=== PATIENT | female | born 2000 | race Native Hawaiian/Other Pacific Islander ===

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

== ENCOUNTER 2020-04-29 16:41 | Inpatient (IN) | payer OTHER ==
[~2020-04-29] VITALS: Ht 167.6 cm; Wt 81.8 kg
[2020-04-29] MEDS ORDERED: ZOLO25TA PO (17:04)
[2020-04-29 17:16] LABS: HEMATOCRIT 39.7 % (36.0-47.0); HEMOGLOBIN 13.4 g/dl (12.0-15.5); MEAN CORPUSCULAR HEMOGLOBIN 30.7 pg (27.0-33.0); MEAN CORPUSCULAR HGB CONC 33.8 g/dl (32.0-36.5); MEAN CORPUSCULAR VOLUME 91.1 fl (80.0-96.0); PLATELET COUNT, AUTOMATED 370 10^3/uL (150-450); RED BLOOD COUNT 4.36 10^6/uL (4.00-5.40); WHITE BLOOD COUNT 11.3 10^3/uL (4.0-10.0)
[2020-04-29 17:32] LABS: HCG, SERUM QUALITATIVE NEGATIVE (NEGATIVE)
[2020-04-29 17:33] LABS: AMPHETAMINES LEVEL URINE NEGATIVE (NEGATIVE); BARBITURATES URINE NEGATIVE (NEGATIVE); BENZODIAZEPINES URINE NEGATIVE (NEGATIVE); CANNABINOIDS URINE NEGATIVE (NEGATIVE); COCAINE METABOLITE URINE NEGATIVE (NEGATIVE); METHADONE URINE NEGATIVE (NEGATIVE); OPIATES URINE NEGATIVE (NEGATIVE); PHENCYCLIDINE URINE NEGATIVE (NEGATIVE)
[2020-04-29 17:45] LABS: ACETAMINOPHEN LEVEL < 2.0 UG/ML (10.0-30.0); ALBUMIN 4.1 GM/DL (3.2-5.2); ALT/SGPT 30 U/L (12-78); BILIRUBIN,DIRECT 0.2 MG/DL (0.0-0.2); BILIRUBIN,TOTAL 0.5 MG/DL (0.2-1.0); BLOOD UREA NITROGEN 12 MG/DL (7-18); CALCIUM LEVEL 8.9 MG/DL (8.5-10.1); CARBON DIOXIDE LEVEL 29 MEQ/L (21-32); CHLORIDE LEVEL 107 MEQ/L (98-107); CREATININE FOR GFR 0.62 MG/DL (0.55-1.30); ETHYL ALCOHOL (ETHANOL) < 0.003 % (0.000-0.010); GLUCOSE, FASTING 87 MG/DL (70-100); POTASSIUM SERUM 3.9 MEQ/L (3.5-5.1); SALICYLATE LEVEL < 1.7 MG/DL (5.0-30.0); SODIUM LEVEL 139 MEQ/L (136-145); TOTAL PROTEIN 7.9 GM/DL (6.4-8.2)
[2020-04-29] MEDS ORDERED: SERT50TA29 PO (18:28)
[2020-04-29] MEDS ORDERED: TRAZ-186 PO (18:28)
--- NOTE | 2020-04-29 20:36 | ECGEPIP ---
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
[2020-04-30] MEDS ORDERED: SERTRALINE HCL 25 MG TABLET PO ONE (09:00)
[2020-04-30] MEDS ORDERED: IBUPROFEN 400 MG TAB PO PRN (16:30)
[2020-04-30] MEDS ORDERED: LORazepam 1 MG TAB PO PRN (16:30)
[2020-04-30] MEDS ORDERED: MAALOX 30 ML SUSP *UDC PO PRN (16:30)
[2020-04-30] MEDS ORDERED: MOM 30ML SUSPENSION UDC PO PRN (16:30)
[2020-04-30 23:04] VITALS: BP 138/81
[2020-05-01] MEDS: traZODone 50 MG TAB PO PRN ×2 (00:43→20:12)
[2020-05-01 07:00] VITALS: BP 128/79
[2020-05-01] MEDS: SERTRALINE HCL 25 MG TABLET PO SCH (08:57)
--- NOTE | 2020-05-01 13:20 | MHHPEPDOC ---
General Date Of Admission: Apr 29, 2020 Legal Status: 9.39 Chief Complaint Patient reported that last she jumped into the [place] (waist deep), wanted to see how she was feeling or if she wanted to really . Boyfriend was there was walking nearby and he was able to pull her out. She reports that she was not really feeling suicidal but not sure how she was feeling. She stated that she feels better because now she lives with her boyfriend and has a new puppy. 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 This occurred on 04/24/20, states she was feeling a lot of emotions on that day. She told her counselor about it and they recommended that she be seen in the ED. This is the first psychiatric admission for this patient with no other history of prior suicidal ideation, gestures or attempts. Psychiatric Review of Systems Depression (2 or more weeks): depressed mood, suicidal thoughts (suicidal gesture on 04/24/20 ), other (Last week, felt like she wanted to "see if she wanted to ", by jumping into a [place] while walking with her boyfriend ) Michelle (4 or more days of): denies Psychosis: denies PTSD: denies Anxiety: situational anxiety, stressor related anxiety Past Psychiatric History Previous Psychiatric Diagnosis: This is first admission Previous Psychiatric Admissions: None Suicide Attempts: None prior Psychiatric Follow-up: [facility], started when she was deployed November 2019 Psychiatric medications: Zoloft 75mg and Trazodone 50 mg . Past Medical History Medical Problems Medical: Unremarkable Surgeries: Gall Bladder Medications: None, OTC pain medications Allergies: No known drug allergies, no food allergies, no environmental allergies Head Injury: No Seizures: No Hospitalizations: Yes Surgeries: Yes Family Medical/Psychiatric HX Medical Problems Patient adopted, has not history that she is aware of. Psychiatric Disorders: No Addiction: No Suicide Attemps/Completions: No Addiction History denies Social History Childhood: Went into Foster Care at 3, Adopted at age 6 and then adopted again at 13 years old. 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 Missed taking Zoloft on time several days in a row. Social Support: Supportive Boyfriend and Friends Legal: None Marital: Single Mental Status Examination General Appearance: well groomed Build: average Demeanor: average Eye Contact: average Activity: average Behavior: cooperative Speech: clear, reg/rate,rhythm,volume Mood: euthymic Affect: appropriate Thought Process: logical/linear Thought Content (Delusions): none reported Thought Content (Other): none reported Thought Content (Aggressive): none reported Perception (Hallucinations): none reported Perception (Other): none reported Cognition (Impairment of): none reported Cognition(Intelligence Est.): average Oriented: Awake, Oriented times three Insight: good Judgment: Good Psychosis: Denies Diagnoses Unspecified Depressive Disorder A-FIB/CHADSVASC A-FIB History Current/History of A-Fib/PAF?: No Current PO Anticoag Therapy: No Age/Risk Factor Scoring CHADSVASC: CHADSVASC Response (Comments) Value Age Risk Factor Age < 65 years old 0 Gender Risk Factor Female 1 Hx of CHF No 0 Hx of HTN No 0 Hx of Stroke/TIA/or VTE No 0 Hx of Diabetes No 0 Hx of Vascular Disease No 0 Total 1 Treatment Treatment ordered: NONE Assessment Patient reporting minimal depressive symptoms having a moment in which she was having a bad day on of last week. She does not currently have active suicidal thoughts, reporting no depression or anxiety. She was sent her for an evaluation by her counselor. She reports no suicidal ideation, planning or intent. She is not observed with any delusional, psychotic, manic, obsessional, or abnormal psychotic symptoms. There does not seem to be any acute issues at this time. Patient will be started on home medications and discharged tomorrow. Initial Treatment Plan 1. Patient was admitted on a [9.39] status. 2. Complete history was obtained. 3. With patients permission, family will be contacted and database will be e xpanded. 4. Patients medication regimen will be reviewed and changed accordingly. 5. Patient will be provided with protected environment. 6. Patient will be treated with individual, group, and milieu therapies. 7. Patient will receive supportive psych-education. 8. Discharge planning will commence immediately. 9. Outpatient follow-up treatment will be strongly recommended. 10. The initial treatment plan will focus initially on: * Depression. * Risk for suicide. ESTIMATED LENGTH OF STAY: 1-3 DAYS. TIME SPENT COUNSELING AND COORDINATING INITIAL CARE: 30 minutes. Vital Signs Vital Signs Date Time Temp Pulse Resp B/P (MAP) Pulse Ox O2 Delivery O2 Flow Rate FiO2 05/01/20 07:00 97.2 82 16 128/79 (95) 99 Room Air Medications Scheduled Sertraline HCl (Sertraline HCl) 50 Mg Tablet, 50 MG PO DAILY, (Reported) 75MG TOTAL DAILY Sertraline Hcl (Zoloft) 25 Mg Tablet, 25 MG PO DAILY, (Reported) 75MG TOTAL DAILY Scheduled PRN Trazodone HCl (Trazodone HCl) 50 Mg Tablet, 50 MG PO QHS PRN for SLEEP, (Reported) MAY TAKE ONE TO TWO TABS PRN Allergies Coded Allergies: No Known Allergies (Unverified , 04/29/20) LANCE ESPINOZA NP May 01, 2020 13:20
--- NOTE | 2020-05-01 15:48 | HPEPDOC ---
General Date of Admission Apr 30, 2020 at 16:17 Date of Service: May 01, 2020 Chief Complaint The patient is a 20-year-old female admitted with a reason for visit of Unspecified Depressive Disorder. Source: Patient Exam Limitations: No limitations Severity: Mild, Moderate History of Present Illness Patient is 20 years old female with past medical history of anxiety, who had a suicidal gesture of jumping [place] the [place] to see if she would get scared. This o ccurred on 04/24/20, states she was feeling a lot of emotions on that day. She told her counselor about it and they recommended that she be seen in the ED. During my interview patient denied fever, chills, nausea, vomiting, diarrhea or dysuria Home Medications Scheduled Sertraline HCl (Sertraline HCl) 50 Mg Tablet, 50 MG PO DAILY, (Reported) 75MG TOTAL DAILY Sertraline Hcl (Zoloft) 25 Mg Tablet, 25 MG PO DAILY, (Reported) 75MG TOTAL DAILY Scheduled PRN Trazodone HCl (Trazodone HCl) 50 Mg Tablet, 50 MG PO QHS PRN for SLEEP, (Reported) MAY TAKE ONE TO TWO TABS PRN Allergies Coded Allergies: No Known Allergies (Unverified , 04/29/20) Past Medical History Medical History Anxiety Surgical History Cholecystectomy Social History * Smoker: Denies Alcohol: Denies Drugs: denies A-FIB/CHADSVASC A-FIB History Current/History of A-Fib/PAF?: No Current PO Anticoag Therapy: No Review of Systems Constitutional: Denies: Chills, Fever ENT: Denies: Head Aches Skin: Denies: Rash, Lesions Pulmonary: Denies: Dyspnea Cardiovascular: Denies: Chest Pain Gastrointestinal: Denies: Nausea Genitourinary: Denies: Dysuria Hematologic: Denies: Bruising Endocrine: Denies: Polydipsia Musculoskeletal: Denies: Neck Pain, Back Pain Neurological: Denies: Weakness Psych: Reports: Anxiety Physical Examination General Exam: Positive: Alert, Cooperative Eye Exam: Positive: PERRLA ENT Exam: Positive: Atraumatic Neck Exam: Positive: Supple; Negative: JVD Chest Exam: Positive: Clear to auscultation Heart Exam: Positive: Rate Normal Telemetry: Positive: No significant arrhythmia Abdomen Exam: Positive: Normal bowel sounds Extremity Exam: Negative: Clubbing Skin Exam: Positive: Nl turgor and temperature Neuro Exam: Positive: Strength at 5/5 X4 ext, Cranial Nerves 3-12 NL Psych Exam: Positive: Anxiety Vital Signs Vital Signs Date Time Temp Pulse Resp B/P (MAP) Pulse Ox O2 Delivery O2 Flow Rate FiO2 05/01/20 07:00 97.2 82 16 128/79 (95) 99 Room Air Assessment/Plan Patient is 20 years old female with past medical history of anxiety, who had a s uicidal gesture of jumping to the [place] to see if she would get scared. This occurred on 04/24/20, states she was feeling a lot of emotions on that day. She told her counselor about it and they recommended that she be seen in the ED. During my interview patient denied fever, chills, nausea, vomiting, diarrhea or dysuria Problems (1) Suicidal ideation Status: Acute Problem Text: Defer treatment to psych team Plan / VTE VTE Prophylaxis Ordered?: No VTE Exclusion Mechanical Proph: Low Risk for VTE ISREAL ESPINAL DO May 01, 2020 15:48
[2020-05-01 18:20] VITALS: BP 134/74
[2020-05-02 06:59] VITALS: BP 113/62
[2020-05-02] MEDS: SERTRALINE HCL 25 MG TABLET PO SCH (08:48)
[2020-05-02] MEDS ORDERED: SERT25TA21 PO (11:03)
[2020-05-02] MEDS ORDERED: TRAZ-252 PO (11:03)
--- NOTE | 2020-05-02 15:26 | MHDSPDOC ---
[facility] Discharge Summary Discharge Summary DATE OF ADMISSION: Apr 30, 2020 at 16:17 DATE OF DISCHARGE: May 02, 2020 at 11:25 DISCHARGE DIAGNOSES: 1. Unspecified Depressive Disorder REASON FOR ADMISSION: Patient reported that last she jumped into the [place] (waist deep), wanted to see how she was feeling or if she wanted to really . Boyfriend was there was walking nearby and he was able to pull her out. She reports that she was not really feeling suicidal but not sure how she was feeling. She stated that she feels better because now she lives with her boyfriend and has a new puppy. 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 This occurred on 04/24/20, states she was feeling a lot of emotions on that day. She told her counselor about it and they recommended that she be seen in the ED. This is the first psychiatric admission for this patient with no other history of prior suicidal ideation, ge stures or attempts. On initial psychiatric evaluation, patient denied continued suicidal ideation. She was admitted for observation as the suicidal gesture had occurred 1 week ago, patient had reported that she was no longer having self- harm thoughts. In morning report, staff had reported that patient was doing well. Observed with no reports of depression, suicidal thoughts, not observed with abnormal psychotic symptoms. CONSULTANTS INVOLVED: See Medical H + P by medical MD TREATMENT AND PROGRESS ON THE UNIT : Procedures and Treatment: Patient was afforded: 1) Individual and group therapy, 2) Psychopharmacological management, 3) Family therapy conducted by discharge planning department with patient and family for the purpose of education and discharge planning. HOSPITAL COURSE: Patient was restarted on her home medications and was observed for any increased depression, anxiety or suicidal ideation. DISCHARGE ASSESSMENT: At time of discharge the patient is alert and fully oriented, Mood euthymic. Affect broad range. Patient denies suicidal/homicidal ideation, planning or intent. IQ is at baseline. Memory is intact and insight and judgement is good. She is welcome to return home to the [facility] until her commanding officer can determine whether or not she can stay with her boyfriend who is, according to the patient is legally from his . 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 Speech is clear, fluid and conversant, normal rate tone and volume Language skills are good Thought processes including: d linear and goal oriented Thought content: denies depression and suicidality, Abstract reasoning, and computation: good Description of associations: none Description of abnormal or psychotic thoughts: none Judgment: good Insight: good Orientation to alert and oriented Recent and remote memory: intact Attention span and concentration: good Language: intact Fund of knowledge: above average Mood: euthymic Affect: congruent with mood MEDICATIONS ON DISCHARGE: See medication reconciliation PLAN/FOLLOWUP ARRANGEMENTS: The patient is being discharged as he/she no longer poses a risk of harm towards himself or others. The patient will continue on her medications. Rxs were electronically sent for Zoloft 75 mg oral daily and Trazodone 50 mg at bedtime. A week supply with 6 refills were sent to [facility]. I reviewed with patient the medications, indications, side effects, dose, time, route and frequency. She verbalized understanding. Following up with [facility]. The amount of time spent in the coordination of care for this patient was approximately 15 minutes. Vital Signs/I&Os Vital Signs Date Time Temp Pulse Resp B/P (MAP) Pulse Ox O2 Delivery O2 Flow Rate FiO2 05/02/20 06:59 98.2 83 16 113/62 (79) 100 Room Air Medications Scheduled Sertraline HCl (Sertraline HCl) 50 Mg Tablet, 50 MG PO DAILY, (Reported) 75MG TOTAL DAILY Sertraline HCl (Sertraline HCl) 25 Mg Tablet, 75 MG PO DAILY for depression, #21 Sertraline Hcl (Zoloft) 25 Mg Tablet, 25 MG PO DAILY, (Reported) 75MG TOTAL DAILY Scheduled PRN Trazodone HCl (Trazodone HCl) 50 Mg Tablet, 50 MG PO QHS PRN for SLEEP, (Reported) MAY TAKE ONE TO TWO TABS PRN Trazodone HCl (Trazodone HCl) 50 Mg Tablet, 50 MG PO QHSP PRN for INSOMNIA, #7 Allergies Coded Allergies: No Known Allergies (Unverified , 04/29/20) LANCE ESPINOZA NP 18, 2020 15:26
== END 2020-05-02 11:25 | disposition home or self-care (01) | DRG 881 ==
LOC: M ED 16:41 → M ED INP 04-30 16:17 → M PSY 04-30 22:59
PROVIDERS: ADMIT Psychiatry & Neurology Psychiatry; ATTEND Psychiatry & Neurology Psychiatry
DX: F32.9 Major depressive disorder, single episode, unspecified (principal); Z91.82 Personal history of military deployment; Z79.899 Other long term (current) drug therapy

== ENCOUNTER 2020-06-26 11:56 | Emergency (ER) | payer OTHER ==
[~2020-06-26] VITALS: Ht 167.6 cm; Wt 97.3 kg
[~2020-06-26 11:56] MED LIST changes: +SERT25TA21 PO; +SERT50TA29 PO; +TRAZ-186 PO; +TRAZ-252 PO; +ZOLO25TA PO
[2020-06-26] MEDS ORDERED: ABIL1TAB13 PO (12:10)
[2020-06-26] MEDS ORDERED: SERT-138 PO (12:10)
[2020-06-26 12:38] LABS: BASO % 0.3 % (0.0-1.0); EOS # 0.1 10^3/uL (0.0-0.5); EOS % 0.7 % (0.0-3.0); HEMATOCRIT 42.4 % (36.0-47.0); HEMOGLOBIN 14.1 g/dl (12.0-15.5); LYMPH # 2.2 10^3/uL (1.5-5.0); LYMPH % 22.7 % (24.0-44.0); MEAN CORPUSCULAR HEMOGLOBIN 29.6 pg (27.0-33.0); MEAN CORPUSCULAR HGB CONC 33.3 g/dl (32.0-36.5); MEAN CORPUSCULAR VOLUME 89.1 fl (80.0-96.0); MONO # 0.6 10^3/uL (0.0-0.8); MONO % 6.4 % (0.0-5.0); NEUTROPHILS # 6.8 10^3/uL (1.5-8.5); NEUTROPHILS % 69.4 % (36.0-66.0); PLATELET COUNT, AUTOMATED 414 10^3/uL (150-450); RED BLOOD COUNT 4.76 10^6/uL (4.00-5.40); WHITE BLOOD COUNT 9.8 10^3/uL (4.0-10.0)
[2020-06-26 13:07] LABS: ALBUMIN 4.3 GM/DL (3.2-5.2); BILIRUBIN,DIRECT 0.2 MG/DL (0.0-0.2); BILIRUBIN,TOTAL 0.8 MG/DL (0.2-1.0); TOTAL PROTEIN 7.9 GM/DL (6.4-8.2)
[2020-06-26] MEDS ORDERED: DICY10CA13 PO (15:04)
[2020-06-26 15:15] VITALS: BP 118/64
[2020-06-26 19:05] LABS: CHLAMYDIA DNA AMPLIFICATION NEGATIVE (NEGATIVE); GC DNA AMPLIFICATION NEGATIVE (NEGATIVE)
== END 2020-06-26 15:17 | disposition home or self-care (01) ==
LOC: M ED 11:56
DX: R10.2 Pelvic and perineal pain (principal); R19.7 Diarrhea, unspecified; N89.8 Other specified noninflammatory disorders of vagina; Z90.49 Acquired absence of other specified parts of digestive tract; F41.9 Anxiety disorder, unspecified; F32.5 Major depressive disorder, single episode, in full remission

== ENCOUNTER 2020-09-11 02:21 | Inpatient (IN) | payer OTHER ==
[~2020-09-11] VITALS: Ht 167.6 cm; Wt 101.7 kg
[~2020-09-11 02:21] MED LIST changes: +ABIL1TAB13 PO; +DICY10CA13 PO; +SERT-138 PO
--- OUTSIDE RECORDS SUMMARY | 2020-09-11 02:26 | CCD | Continuity of Care Document ---
Author Author [facility] Organization Unknown Address [address] [place] [id number] Phone [phone] Care Team Providers Care Manager Wellness Name Role Phone Usa ArturdacLisy laquita AUTM Unavailable Problems Description No Information Available Social History Type Date Description Comments Sex Unknown Tobacco Use Start: Unknown Never Smoked Cigarettes Tobacco Use Start: Unknown Never Smoked Cigars Tobacco Use Start: Unknown Never Smoked A Pipe Tobacco Use Start: Unknown Never Used Smokeless Tobacco ETOH Use Denies alcohol use Tobacco Use Start: Unknown Patient has never smoked Recreational Drug Use Denies Drug Use Allergies, Adverse Reactions, Alerts Active Allergies Reaction Severity Comments Date NKDA 08/27/2020 NKEA 08/27/2020 NKFA 08/27/2020 Medications Description No Active Medications Immunizations Description No Information Available Vital Signs Date Vital Result Comment 08/27/2020 2:21pm BP Systolic 134 mmHg BP Diastolic 85 mmHg Heart Rate 96 /min Body Temperature 98.0 F Respiratory Rate 16 /min O2 % BldC Oximetry 98 % Weight 210.00 lb Weight 95.256 kg Height 66 inches 5'6" BMI (Body Mass Index) 33.9 kg/m2 BSA (Body Surface Area) 2.04 m2 Results Test Acquired Date Facility Test Result H/L Range Note Inhouse Ua 08/27/2020 In Office Ua Color YELLOW Ua Appearance CLEAR Spec [place] 1.020 Ua PH Test Strip 5 Leukocytes - Ua Nitrate - Ua Protein NEG Inhouse Glucose NEG Ua Ketones - Urobilinogen NEG Ua Bilirubin - Blood 250 Procedures Description No Information Available Medical Devices Description No Information Available Encounters Type Date Location Provider Dx Diagnosis Office Visit 08/27/2020 2:00p [facility] Nayan Page M.D. R82.81 Pyuria R30.0 Dysuria R10.31 Right lower quadrant pain N10 Acute pyelonephritis R35.0 Frequency of micturition R31.21 Asymptomatic microscopic hem aturia N94.10 Unspecified dyspareunia Assessments Date Code Description Provider 08/27/2020 R82.81 Pyuria Doc Aguero 08/27/2020 R30.0 Dysuria Doc Aguero 08/27/2020 R10.31 Right lower quadrant pain Nayan Page M.D. 08/27/2020 N10 Acute pyelonephritis Nayan caicedo M.D. 08/27/2020 R35.0 Frequency of micturition Nayan Page M.D. 08/27/2020 R31.21 Asymptomatic microscopic hematur ia Nayan Page M.D. 08/27/2020 N94.10 Unspecified dyspareunia Nayan Page M.D. Plan of Treatment Future Appointment(s):* 10/08/2020 1:00 pm - Urology Resource Schedule at [facility] 08/27/2020 - Nayan Page M.D.* R82.81 Pyuria* Comments:* Patient presents to the clinic today for evaluation and management of acute pyelonephritis. Physical examination done in the office today was unremarkable from a standpoint.Anatomy and functions of female genitourinary system were reviewed with the patient. Urine culture and sensitivity on 06/20/20 revealed mixed ur ogenital licha of 25,000-50,000 CFU/mL. Result was reviewed with the patient. CT of the abdomen and pelvis done on 06/17/20 revealed normal appearing kidneys, partially decompressed bladder, and cholecystectomy noted. Result was reviewed with the patient. Urinalysis completed in the office was positive for leukocyte esterase, nitrite, and blood, which was reviewed with the patient. Her symptoms are most likely due to urinary tract infection. Result was reviewed with the patient.We will send her urine sample for culture to look for growth of organisms. We will start treatment according to the urine culture and sensitivity result.We will also repeat her urinalysis for further review.Right lower quadrant pain may be musculoskeletal origin. Patient was instructed to consult Physical Therapy for musculoskeletal pain.Various treatment modalities and workup methods including antibiotic use and urine culture and sensitivity, repeat urinalysis were discussed with the patient at length.Patient was advised to call or RTC if she develops any new concerns or complaints.Patient verbalized understanding and agreed to the care plan. All of her questions were answered. Follow up to be decided after the urine culture and sensitivity is done.She will follow up in 6 weeks for reassessment of her symptoms and further plan of care. If there is persistence of lower back pains, blood on urinalysis or persistent pyuria, will consider a cystoscopy for lower tract evaluation. * R30.0 Dysuria* Comments:* As above. * R10.31 Right lower quadrant pain* Comments:* Her right lower back pain most likely to be of musculoskeletal origin. Recommended to consult with Physical Therapy. * N10 Acute pyelonephritis* Comments:* As above. * R35.0 Frequency of micturition* Comments:* As above. * R31.21 Asymptomatic microscopic hematuria* Comments:* UA showed blood. * N94.10 Unspecified dyspareunia* Comments:* Symptoms are mild and intermittent. No new treatment was indicated at this time. Functional Status Description No Information Available Mental Status Description No Information Available Referrals Description No Information Available
--- OUTSIDE RECORDS SUMMARY | 2020-09-11 02:26 | CCD | Continuity of Care Document ---
Author Author [facility] Organization Unknown Address [address] [place] [id number] Phone [phone] Care Team Providers Care Ground Nuclear Weapons Assembly Officer Name Role Phone Usa ArturdacLisy laquita AUTM [...] Ua Color YELLOW Ua Appearance CLEAR Spec [place] 1.020 Ua PH Test Strip 5 Leukocytes - Ua Nitrate - Ua Protein NEG Inhouse Glucose NEG Ua Ketones - Urobilinogen NEG Ua Bilirubin - Blood - Procedures Description No Information Available Medical Devices Description No Information Available Encounters Type Date Location Provider Dx Diagnosis Office Visit 08/27/2020 2:00p [facility] Nayan Page M.D. R82.81 Pyuria [...] 1:00 pm - Urology Resource Schedule at [facility] 08/27/2020 - Nayan Page M.D.* [...]
--- OUTSIDE RECORDS SUMMARY | 2020-09-11 02:26 | CCD | Continuity of Care Document ---
Author Author Jade RAMIREZ M.D. Organization Unknown Address [facility] [address] [place] [address] Phone [phone] Care Team Providers Care Frame Stylist Name Role Phone [facility] Lisy [facility] AUT Unavailable Problems Description No Information Available Social [...] BSA (Body Surface Area) 2.04 m2 Results Description No Information Available Procedures Description No Information Available Medical Devices Description No Information Available Encounters Type Date Location Provider Dx Diagnosis Office Visit 08/27/2020 2:00p [facility] Nayan Ramirez M.D. R82.81 Pyuria R30.0 Dysuria R10.31 Right lower quadrant pain N10 Acute pyelonephritis R31.21 Asymptomatic microscopic hem aturia R35.0 Frequency of micturition N94.10 Unspecified dyspareunia Assessments Date Code Description Provider 08/27/2020 R82.81 Pyuria Doc Aguero 08/27/2020 R30.0 Dysuria Doc Aguero 08/27/2020 R10.31 Right lower quadrant pain Nayan Ramirez M.D. 08/27/2020 N10 Acute pyelonephritis Nayan caicedo M.D. 08/27/2020 R31.21 Asymptomatic microscopic hematur ia Nayan Ramirez M.D. 08/27/2020 R35.0 Frequency of micturition Nayan Ramirez M.D. 08/27/2020 N94.10 Unspecified dyspareunia Nayan Ramirez M.D. Plan of Treatment Future Appointment(s):* 10/08/2020 1:00 pm - Urology Resource Schedule at [facility] 08/27/2020 - Nayan Ramirez M.D.* R82.81 Pyuria * R30.0 Dysuria * R10.31 Right lower quadrant pain* Comments:* Her right lower quadrant pain may be musculoskeletal origin. * N10 Acute pyelonephritis * R31.21 Asymptomatic microscopic hematuria* Comments:* UA showed blood. * R35.0 Frequency of micturition * N94.10 Unspecified dyspareunia* Comments:* Symptoms are mild and intermittent. Functional Status Description No Information Available Mental Status Description No Information Available Referrals Description No Information Available
--- OUTSIDE RECORDS SUMMARY | 2020-09-11 02:27 | CCD ---
Author Author [facility] Organization [facility] Address Unknown Phone Unavailable Care Team Providers Care Shipping & Receiving Lead Name Role Phone Hood RAMIREZ MD Unavailable Unavailable Hood RAMIREZ MD Unavailable Unavailable Hood RAMIREZ MD Unavailable Unavailable Hood RAMIREZ MD Unavailable Unavailable Hood RAMIREZ MD Unavailable Unavailable Hood RAMIREZ MD Unavailable Unavailable Hood RAMIREZ MD Unavailable Unavailable Hood RAMIREZ MD Unavailable Unavailable Hood RAMIREZ MD Unavailable Unavailable Hood RAMIREZ MD Unavailable Unavailable Hood RAMIREZ MD Unavailable Unavailable Hood RAMIREZ MD Unavailable Unavailable Hood RAMIREZ MD Unavailable Unavailable Hood RAMIREZ MD Unavailable Unavailable Hood RAMIREZ MD Unavailable Unavailable Hood RAMIREZ MD Unavailable Unavailable Hood RAMIREZ MD Unavailable Unavailable Hood RAMIREZ MD Unavailable Unavailable Hood RAMIREZ MD Unavailable Unavailable Hood RAMIREZ MD Unavailable Unavailable Hood RAMIREZ MD Unavailable Unavailable Hood RAMIREZ MD Unavailable Unavailable Hood RAMIREZ MD Unavailable Unavailable Hood RAMIREZ MD Unavailable Unavailable Hood RAMIREZ MD Unavailable Unavailable Hood RAMIREZ MD Unavailable Unavailable Hood RAMIREZ MD Unavailable Unavailable OBHood COON MD Unavailable Unavailable Hood RAMIREZ MD Unavailable Unavailable OBHood COON MD Unavailable Unavailable Hood RAMIREZ MD Unavailable Unavailable OBHood COON MD Unavailable Unavailable OBEN, T BAR MD Unavailable Unavailable OBEN, T BAR MD Unavailable Unavailable OBEN, T BAR MD Unavailable Unavailable OBEN, T BAR MD Unavailable Unavailable OBEN, T BAR MD Unavailable Unavailable OBEN, T BAR MD Unavailable Unavailable OBEN, T BAR MD Unavailable Unavailable OBEN, T BAR MD Unavailable Unavailable OBEN, T BAR MD Unavailable Unavailable OBEN, T BAR MD Unavailable Unavailable OBEN, T BAR MD Unavailable Unavailable OBEN, T BAR MD Unavailable Unavailable OBEN, T BAR MD Unavailable Unavailable OBEN, T BAR MD Unavailable Unavailable OBEN, T BAR MD Unavailable Unavailable OBEN, T BAR MD Unavailable Unavailable OBEN, T BAR MD Unavailable Unavailable OBEN, T BAR MD Unavailable Unavailable OBEN, T BAR MD Unavailable Unavailable OBEN, T BAR MD Unavailable Unavailable OBEN, T BAR MD Unavailable Unavailable TURRIN, BENEDICT Unavailable Unavailable TURRIN, BENEDICT Unavailable Unavailable TURRIN, BENEDICT Unavailable Unavailable TURRIN, BENEDICT Unavailable Unavailable OBEN, T BAR MD Unavailable Unavailable OBEN, T BAR MD Unavailable Unavailable OBEN, T BAR MD Unavailable Unavailable OBEN, T BAR MD Unavailable Unavailable OBEN, T BAR MD Unavailable Unavailable OBEN, T BAR MD Unavailable Unavailable OBEN, T BAR MD Unavailable Unavailable OBEN, T BAR MD Unavailable Unavailable OBEN, T BAR MD Unavailable Unavailable OBEN, T BAR MD Unavailable Unavailable OBEN, T BAR MD Unavailable Unavailable OBEN, T BAR MD Unavailable Unavailable OBEN, T BAR MD Unavailable Unavailable OBEN, T BAR MD Unavailable Unavailable OBEN, T BAR MD Unavailable Unavailable OBEN, T BAR MD Unavailable Unavailable OBEN, T BAR MD Unavailable Unavailable OBEN, T BAR MD Unavailable Unavailable OBEN, T BAR MD Unavailable Unavailable OBEN, T BAR MD Unavailable Unavailable OBEN, T BAR MD Unavailable Unavailable OBEN, T BAR MD Unavailable Unavailable OBEN, T BAR MD Unavailable Unavailable OBEN, T BAR MD Unavailable Unavailable OBEN, T BAR MD Unavailable Unavailable OBEN, T BAR MD Unavailable Unavailable OBEN, T BAR MD Unavailable Unavailable OBEN, T BAR MD Unavailable Unavailable OBEN, T BAR MD Unavailable Unavailable OBEN, T BAR MD Unavailable Unavailable OBEN, T BAR MD Unavailable Unavailable OBEN, T BAR MD Unavailable Unavailable OBEN, T BAR MD Unavailable Unavailable OBJAYMIE T BAR DUNBAR Unavailable Unavailable OBJAYMIE, T BAR Unavailable Unavailable OBJAYMIE T BAR Unavailable Unavailable OBEN, T BAR Unavailable Unavailable OBEN T BAR Unavailable Unavailable OBEN, T BAR MD Unavailable Unavailable OBEN, T BAR MD Unavailable Unavailable OBEN, T BAR MD Unavailable Unavailable OBEN, T BAR MD Unavailable Unavailable OBJAYMIE, T BAR Unavailable Unavailable OBEN, T BAR MD Unavailable Unavailable OBJAYMIE, T BAR MD Unavailable Unavailable OBEN, T BAR MD Unavailable Unavailable OBEN, T BAR MD Unavailable Unavailable OBJAYMIE, T BAR MD Unavailable Unavailable OBEN, T BAR MD Unavailable Unavailable OBJAYMIE T BRA Unavailable Unavailable OBJAYMIE, T BAR MD Unavailable Unavailable OBJAYMIE T BAR Unavailable Unavailable OBJAYMIE T BAR Unavailable Unavailable UNKNOWN, CLINIC EV Unavailable Unavailable Tiffany SALDANA MD Unavailable Unavailable Tiffany SALDANA MD Unavailable Unavailable Tiffany SALDANA MD Unavailable Unavailable Tiffany SALDANA MD Unavailable Unavailable Tiffany SALDANA MD Unavailable Unavailable Tiffany SALDANA MD Unavailable Unavailable Tiffany SALDANA MD Unavailable Unavailable Tiffany SALDANA MD Unavailable Unavailable Tiffany SALDANA MD Unavailable Unavailable Tiffany SALDANA MD Unavailable Unavailable Tiffany SALDANA MD Unavailable Unavailable Tiffany SALDANA MD Unavailable Unavailable Tiffany SALDANA MD Unavailable Unavailable Tiffany SALDANA MD Unavailable Unavailable Tiffany SALDANA MD Unavailable Unavailable Tiffany SALDANA MD Unavailable Unavailable Tiffany SALDANA MD Unavailable Unavailable Tiffany SALDANA MD Unavailable Unavailable Tiffany SALDANA MD Unavailable Unavailable Tiffany SALDANA MD Unavailable Unavailable Tiffany SALDANA MD Unavailable Unavailable Tiffany SALDANA MD Unavailable Unavailable Tiffany SALDANA MD Unavailable Unavailable Carmella POOLE MD Unavailable Unavailable Carmella POOLE MD Unavailable Unavailable Carmella POOLE MD Unavailable Unavailable Carmella POOLE MD Unavailable Unavailable Carmella POOLE MD Unavailable Unavailable Carmella POOLE MD Unavailable Unavailable Carmella POOLE MD Unavailable Unavailable Carmella POOLE MD Unavailable Unavailable Carmella POOLE MD Unavailable Unavailable LUISANA, F TORREY DO Unavailable Unavailable LUISANA, F TORREY DO Unavailable Unavailable LUISANA, F TORREY DO Unavailable Unavailable LUISANA, F TORREY DO Unavailable Unavailable LUISANA, F TORREY DO Unavailable Unavailable LUISANA, F TORREY DO Unavailable Unavailable LUISANA, F TORREY DO Unavailable Unavailable LUISANA, F TORREY DO Unavailable Unavailable LUISANA, F TORREY DO Unavailable Unavailable LUISANA, F TORREY DO Unavailable Unavailable LUISANA, F TORREY DO Unavailable Unavailable LUISANA, F TORREY DO Unavailable Unavailable LUISANA, F TORREY DO Unavailable Unavailable LUISANA, F TORREY DO Unavailable Unavailable LUISANA, F TORREY DO Unavailable Unavailable LUISANA, F TORREY DO Unavailable Unavailable LUISANA, F TORRYE DO Unavailable Unavailable LUISNAA, F TORREY DO Unavailable Unavailable LUISANA, F TORREY DO Unavailable Unavailable LUISANA, F TORREY DO Unavailable Unavailable LUISANA, F TORREY DO Unavailable Unavailable LUISANA, F TORREY DO Unavailable Unavailable LUISANA, F TORREY DO Unavailable Unavailable LUISANA, F TORREY DO Unavailable Unavailable LUISANA, F TORREY DO Unavailable Unavailable LUISANA, F TORREY DO Unavailable Unavailable LUISANA, F TORREY DO Unavailable Unavailable LUISANA, F TORREY DO Unavailable Unavailable LUISANA, F TORREY DO Unavailable Unavailable LUISANA, F TORREY DO Unavailable Unavailable LUISANA, F TORREY DO Unavailable Unavailable LUISANA, F TORREY DO Unavailable Unavailable Re-disclosure Warning The records that you are about to access may contain information from federally-assisted alcohol or drug abuse programs. If such information is present, then the following federally mandated warning applies: This information has been disclosed to you from records protected by federal confidentiality rules (42 CFR part 2). The federal rules prohibit you from making any further disclosure of this information unless further disclosure is expressly permitted by the written consent of the person to whom it pertains or as otherwise permitted by 42 CFR part 2. A general authorization for the release of medical or other information is NOT sufficient for this purpose. The Federal rules restrict any use of the information to criminally investigate or prosecute any alcohol or drug abuse patient.The records that you are about to access may contain highly sensitive health information, the redisclosure of which is protected by Article 27-F of the [facility] Public Health law. If you continue you may have access to information: Regarding HIV / AIDS; Provided by facilities licensed or operated by the [facility] Office of Mental Health; or Provided by the [facility] Office for People With Developmental Disabilities. If such information is present, then the following [facility] mandated warning applies: This information has been disclosed to you from confidential records which are protected by state law. State law prohibits you from making any further disclosure of this information without the specific written consent of the person to whom it pertains, or as otherwise permitted by law. Any unauthorized further disclosure in violation of state law may result in a fine or care home sentence or both. A general authorization for the release of medical or other information is NOT sufficient authorization for further disc losure. Encounters Encounter Providers Location Date Indications Data Source(s ) Emergency Attender: BENEDICT HERNANDEZConsultant: EV RAMSAY 09/10/2020 03:48:00 PM EST - 09/11/2020 01:54:00 AM [facility] Patient discharged. Outpatient Attender: BAR RAMIREZ MD 08/27/19 01:57:00 PM EST - 08/27/2020 01:57:00 PM [facility] Outpatient Attender: BAR RAMIREZ MD [facility] 08/27/2020 01:00:0 0 PM EST [facility] ([facility]) Emergency Attender: TORREY AREVALO DO 2019 07:16:00 PM EST - 06/21/2020 10:04:00 PM [facility] Patient discharged. Emergency Attender: MAURIZIO SALDANA MD 2019 02:47:00 PM EST - 06/19/2020 06:18:00 PM [facility] Patient discharged. Emergency Attender: BENEDICT HERNANDEZ 2019 10:19:00 PM EST - 06/17/2020 01:20:00 AM [facility] Patient discharged. Outpatient 05/16/2020 09:50:00 AM EDT [facility] Emergency Attender: SAMIR POOLE MD 05/16 09:17:00 AM EDT - 05/16/2020 11:45:[address] [facility] Patient discharged. Emergency Attender: SAMIR POOLE MD 02/28 09:35:00 PM EDT - 03/01/2020 12:57:[address] [facility] Patient discharged. Outpatient 02/10/2020 12:15:00 AM EDT [facility] Outpatient 02/09/2020 11:40:00 PM EDT [facility] Emergency Attender: TORREY AREVALO 2019 11:06:00 PM EDT - 02/10/2020 01:57:[address] [facility] Patient discharged. Insurance Providers Payer name Policy type / Coverage type Policy ID Covered democrat ID Covered democrat's relationship to velasquez Policy Velasquez Plan Information [facility] [employer] [id number] SP [id number] [facility] [employer] - O/P [id number] 18 [id number] [facility] [employer] [id number] 18 [id number] ANSI-Not a Secondary Insurance [id number] [facility] ACTIVE [facility] [id number] SP [id number] Problems, Conditions, and Diagnoses Code Display Name Description Problem Type Effective Dates Data Source(s) L509 Urticaria, unspecified Urticaria, unspecified Diagnosi s 06/21/2020 07:16:00 PM [facility] 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 Diagnosis 06/21/2020 07:16:00 PM [facility] R1031 Right lower quadrant pain Right lower quadrant pain Di agnosis 06/21/2020 07:16:00 PM [facility] N390 Urinary tract infection, site not specif ied Urinary tract infection, site not specified Diagnosis 06/16/2020 10:19:00 PM [facility] N10 Acute pyelonephritis Acute pyelonephritis Diagnosis 06/16/2020 10:19:00 PM [facility] R109 Unspecified abdominal pain Unspecified abdominal pain Diagnosis 06/16/2020 10:19:00 PM [facility] R197 Diarrhea, unspecified Diarrhea, unspecified Diagnosis 05/16/2020 09:17:[address] [facility] N3001 Acute cystitis with hematuria Acute cystitis with gladis turia Diagnosis 05/16/2020 09:17:[address] [facility] S78344 Personal history of urinary (tract) infe ctions Personal history of urinary (tract) infections Diagnosis 02/29/2020 09:35:00 PM EDT [facility] N3000 Acute cystitis without hematuria Acute cystitis without hematuria Diagnosis 02/29/2020 09:35:[address] [facility] V52020 Tension-type headache, unspecified, not intractable Tension-type headache, unspecified, not intractable Diagnosis 02/29/2020 09:35:[address] [facility] N201 Calculus of ureter Calculus of ureter Diagnosis 0 11:06:[address] [facility] R1011 Right upper quadrant pain Right upper quadrant pain Di agnosis 02/09/2020 11:06:[address] [facility] Results ID Date Data Source [id number] 09/10/2020 03:48:[address] [facility] [address] [facility] Emergency Department [address] [place] [address] Phone #: qrr- [phone] 09/10/2020 15:40 Patient: SCARLET SOLOMON Sex: F : 2000 Age: 20yWEIGHT:104.4 kg HEIGHT:66 inches BMI:37.2ALLERGIES: No Known Drug AllergyCHIEF COMPLAINT: drug overdoseDIAGNOSIS: Poisoning by drug AND/OR medicinal substance, Depressive disorder, Suicide attempt, Urinarytract infectious diseaseLAB ORDERSOrder Description Priority Entered Acknowledged InitialedCBC w Diff STAT 15:59 09/10/2020 16:02 Karma Eddy Riccardo R.N. M.D.;CMP STAT 15:59 09/10/2020 16:02 Karma Eddy Riccardo R.N. M.D.;TSH STAT 15:59 09/10/2020 16:02 Karma Eddy Riccardo R.N. M.D.;Urine Drug Screen STAT 15:59 09/10/2020 16:02 Karma Eddy Riccardo R.N. M.D.;Acetaminophen STAT 15:59 09/10/2020 16:02 Bety Eddy Riccardo R.N. M.D.;Salicylate Level STAT 15:59 09/10/2020 16:02 Karma Eddy Riccardo R.N. M.D.;ETOH STAT 15:59 09/10/2020 16:02 Karma Eddy Riccardo R.N. M.D.;Urinalysis (Clean STAT 15:59 09/10/2020 16:02 Myron Eddy Riccardo R.N. M.D.;Venous Blood Gas STAT 15:59 09/10/2020 16:02 Karma Eddy Riccardo R.N. M.D.;Beta-HCG, Qual STAT 15:59 09/10/2020 16:02 Robin Eddy Riccardo R.N. M.D.; [address] [facility] Emergency Department [address] [place] [address] Phone #: ext- [phone] 09/10/2020 15:40 Patient: SCARLET SOLOMON Sex: Bairon : 2000 Age: 20yCOVID-19 CAH (Not STAT 15:59 09/10/2020 16:11 Jabari Eddyymptomatic as Benedict Hernandez R.N.Defined by CDC) Soumya;(09/10/2020) (FirstTest) (NotHospitalized) (Not) (NotResident inCongregate CareSetting) (NotEmployed inHealthcare Setting)Culture, Urine STAT 17:14 09/10/2020 17:15 Karma Eddy(Urine, Clean Turrin, Benedict R.N.Catch) M.DElder;DIAGNOSTIC STUDY ORDERSOrder Description Priority Entered Acknowledged InitialedChest Portable 1 STAT 15:59 09/10/2020 16:02 Karma EddyView Turrin, Benedict R.N.(Oxygen?(No)) M.D.; Reason for Study: OverdoseMEDICATION/IV/DRIP/FLUID ORDERSOrder Description Priority Entered Acknowledged InitialedNS IV 1000 mL 15:59 09/10/2020 16:06 Karma EddyBolus: : Bolus 1000 Turrin, Benedict R.N.mL (X1) M.D.;Protonix IV Push 40 16:15 09/10/2020 16:25 Karma Eddymg (in 10 mL NS, Turrin, Benedict R.N.administer over at M.D.;least 2 minutes,NOW x1)Macrodantin PO 17:14 09/10/2020 17:20 Karma Eddy100 mg Turrin, Benedict R.N. M.D.;GENERAL ORDERSOrder Description Priority Entered Acknowledged InitialedOne on One 15:59 09/10/2020 16:02 Jabari Eddyupervision Terririn, Benedict R.N. M.DElder;NPO 15:59 09/10/2020 16:02 Karma Eddy [address] [facility] Emergency Department [address] [place] [address] Phone #: ext- [phone] 09/10/2020 15:40 Patient: SCARLET SOLOMON Sex: F : 2000 Age: 20y David, Benedict R.N. M.D.;Saline Lock 15:59 09/10/2020 16:02 Karma Eddy, Benedict R.N. M.D.;Obstetrics Teacher 15:59 09/10/2020 16:02 Karma Eddy(continuous) Benedict Hernandez R.N., M.D.;EKG 15:59 09/10/2020 16:02 Karma Eddy Riccardo R.N. M.D.;Transfer: 23:25 09/10/2020 00:22 09/11/2020 Benedict Hernandez Katelyn M.D.;-- (Consult ER MD) 23:25 09/10/2020 00:22 09/11/2020 Benedict Hernandez Katelyn M.D.;[Electronically signed by Suni Bradford (01:55 09/11/2020)][Electronically signed by Benedict Hernandez M.D. (02:06 09/11/2020)][Electronically locked by Suni Bradford (01:55 09/11/2020)] Name Value Range Interpretation Code Description Data Shira rce(s) Supporting Document(s) ID Date Data Source [id number] 09/10/2020 03:48:[address] [facility] [address] [facility] Emergency Department [address] [place] [address] Phone #: ext- [phone] 09/10/2020 15:40 Patient: SCARLET SOLOMON Sex: F : 2000 Age: 20yWeight: 104.4 kgHeight/Length: 66 in.BMI: 37.2ALLERGIES: No Known Drug AllergyThe patient's Home Medications are listed below:NONE.The source(s) of the original Home Medication information:Not obtained.The following Medications were given to the patient in the Emergency Department:IV NS IV Fluid s bolus 1000 mL over 1 hour(s), administered: 16:06 1PROTONIX [IVP] IVP 40 mg, administered: 16:25 09/10/2020Macrodantin [PO] PO 100 mg, administered: 17:20 09/10/2020The following Medications were prescribed to the patient:None. Name Value Range Interpretation Code Description Data Shira rce(s) Supporting Document(s) ID Date Data Source [id number] 09/10/2020 03:48:[address] [facility] [address] [facility] Emergency Department [address] [place] [address] Phone #: ext- [phone] 09/10/2020 15:40 Patient: SCARLET SOLOMON Sex: F : 2000 Age: 20yWeight: 104.4 kgHeight/Length: 66 inBMI: 37.2ALLERGIES: No Known Drug Allergy Date/Time Medication Administered Medication OrderedStart IV NS NS IV 1000 mL Bolus: : Bolus [id number] 09/10/2020 Dose: IV Fluids mL (X1)Karma Eddy R.N. Bolus: 1000 mL over 1 hour(s)---- Dispensed: 1000 mL bagStop Site: #1 right hand19:00 1BSuni [place],Given PROTONIX [IVP] (PANTOPRAZOLE Protonix IV Push 40 mg (in 10 mL16:25 09/10/2020 SODIUM) NS, administer over at least 2RKarma macias R.N. Dose: 40 mg IVP minutes, NOW x1) Site: #1 right handGiven MACRODANTIN [PO] Macrodantin PO 100 mg17:20 09/10/2020 (NITROFURANTOIN MACROCRYSTAL)Karma Eddy R.N. Dose: 100 mg Capsules PO Name Value Range Interpretation Code Description Data Shira rce(s) Supporting Document(s) ID Date Data Source [id number] 09/10/2020 03:48:00 PM [facility] [address] [facility] Emergency Department [address] [place] [address] Phone #: ext- [phone] 09/10/2020 15:40 Patient: SCARLET SOLOMON Sex: F : 2000 Age: 20yIntentional multi-drug overdose with ibuprofen and OTC sedative.Suicide attempt.Recurrent severe major depressive disorder without psychosis and with suicidal ideation and suicidalattempt.Acute urinary tract infection with cystitis. No hematuria.(Electronically signed by Benedict Hernandez M.D. 09/11/2020 02:06) Name Value Range Interpretation Code Description Data Shira rce(s) Supporting Document(s) ID Date Data Source [id number] 09/10/2020 03:48:00 PM [facility] 1 Clinical Report - Nurses [facility] Emergency Department [address] [place] [address] Phone #: ext- [phone] 09/10/2020 15:40 Patient: SCARLET SOLOMON Sex: F : 2000 Age: 20yTRIAGEArrived by private vehicle. Historian: patient.Acuity: LEVEL 2.Chief Complaint: DRUG OVERDOSE and SUICIDE ATTEMPT and DEPRESSED.This occurred 40 minutes ago. ( PT says she took half a bottle of 600 mg ibuprofen and 3 or 4 over thecounter sleep aides to try and commit suicide. She says she was feeling depressed and wanted to killherself. [place] She has haddepression and suicidal thoughts.SEPSIS SCREEN: SIRS SCREEN NEGATIVE. SEPSIS SCREEN NEGATIVE. No suspected or confirmedsigns of infection present.SEBASTIAN COMA SCORE: 15- eyes open- spontaneous (4); best verbal response- oriented (5); bestmotor response- obeys commands (6). --15:52 09/10/20 Mary Lemon R.N.15:42 09/10/20. BP: 145/85. MAP: 105. HR: 82. RR: 18. O2 saturation: 99%. Temp: 98.5 F. Pain levelnow: 0/10. --15:52 09/10/20 Mary Lemon R.N.Weight: 104.4 kg. Height/Length: 66 inches. BMI: 37.2. --15:51 09/10/20 Mary Lemon R.N.MedicationsNone. --15:50 09/10/20 Mary Lemon R.N.The following entry was struck by Benedict Hernandez M.D., 16:22 (09/10/20) Reason - other. None. --15:50 09/10/20 Mary Lemon R.N. .AllergiesNo Known Drug Allergy. --15:50 09/10/20 Mary Lemon R.N.HistoryPAST MEDICAL HX: Immunizations: up-to-date. Uses control pills. Denies current .SURGERY HX: No history of previous surgery.SOCIAL HX: Never smoker. No alcohol use or drug use. She was offered HIV testing but declined andhepatitis C testing but declined. She has not traveled outside the [place]Infectious disease exposure: No infectious disease exposure. The patient was not exposed to C-diff,MRSA, VRE, CRE or Coronavirus. 2 Clinical Report - Nurses [facility] Emergency Department [address] [place] [address] Phone #: ext- [phone] 09/10/2020 15:40 [id number] Sex[facility] F : 2000 Age: 20y SELF HARM ASSESSMENT: Self harm assessment was performed. The patient answered "yes" to the question(s) "Have you recently felt down, depressed, or hopeless?", "Do you have thoughts of harming or killing yourself?", "Do you have a plan for harming or killing yourself?", "Have you recently had thoughts about harming or killing others?", "Have you noticed less interest or pleasure in doing things?", "Are you here because you tried to hurt yourself?" and "Have you ever tried to hurt yourself before today?" and "no" to the question(s) "Do you have any dangerous items in your possession?". The patient reports their behavior included suicidal comments and self inflicted injury. In the ED the patient has made suicidal comments. ABUSE ASSESSMENT: No report of abuse. Precautions taken: A further in-depth assessment is planned. The patient has been placed under 1-on-1 and continuous supervision. The patient was placed in a safe room in direct sight of the nurses station. Clothes and valuables were removed and placed at the nurses station. The ED physician has been notified. NUTRITIONAL RISK ASSESSMENT: The nutritional risk assessment revealed no deficiencies. FUNCTIONAL ASSESSMENT: Functional assessment: no impairments noted. LEARNING NEEDS ASSESSMENT: The learning needs assessment revealed no barriers. FALL RISK ASSESSMENT: Fall risk assessment completed. No risk factors identified. SKIN INTEGRITY ASSESSMENT: Skin integrity risk assessment completed. No skin integrity risk identified. --15:52 09/10/20 Mary Lemon R.N. Interventions Identification band on patient. To treatment room. --15:52 09/10/20 Mary Lemon R.N.PHYSICAL ASSESSMENT( stated that she took the pills to hurt herself but does not want to hurt herself now).GENERAL / NEURO / PSYCH: Alert. Oriented X 4. Patient's mood/affect appears abnormal (flat affect).Patient appears calm and cooperative. Gag reflex present. Speech within normal limits.RESPIRATORY: Respirations not labored. Breath sounds within normal limits.CVS: Normal sinus rhythm noted. Capillary refill less than 2 seconds.GI / : Abdomen soft and nontender. Bowel sounds within normal limits.SKIN: Skin intact. Skin is warm and dry. Skin color is within normal limits. --15:59 09/10/20 Karma Eddy R.N. late entry - 16:00 09/10/20. ( pupils 3mm). --17:29 09/10/20 Karma Eddy R.N.NURSING PROGRESS NOTES 3 Clinical Report - Nurses [facility] Emergency Department [address] [place] [address] Phone #: ext- [phone] 09/10/2020 15:40 Patient: SCARLET SOLOMON Sex: F : 2000 Age: 20yMonitoring of patient in place. EKG time: (15:45 09/10/2020). EKG was performed by a nurse andshown to the ED physician. Patient gowned. Reassurance given. Suicide precautions initiated. Threepatient identifiers checked. Call light placed in reach. Side rails up x 2. Patient ready for evaluation- EDphysician notified. --15:54 09/10/20 Mary Lemon R.N.16:06 09/10/2020 Site #1 started via IV in the right hand with an 22g angiocath, with aseptic technique andgood blood return; two attempts. Saline lock flushed with 10 mL saline. --16:06 09/10/20 Karma Eddy R.N.16:06 09/10/2020 Started bag #1 1000 mL IV Fluids IV NS; bolus of 1000 mL over 1 hour(s) via site #1 viaIV pump. Allergies verified and confirmed 5 rights. IV patency established. IV site checked: no pain,redness, or swelling. IV flushed thoroughly pre- and post- medication administration. Information reviewedwith patient including reason for taking this medication, signs of allergic reaction and precautions.Verbalizes understanding. --16:06 1/27/21 Karma Eddy R.N.( Poison control called advertising writer spoke to Liss, supportive measures at present and call back when labs a reback). --16:16 09/10/20 Karma Eddy R.N.Patient ID band checked for patient name and birthdate: patient confirmed. COVID-19 specimen obtainedby RN via nasopharyngeal swab. Labeled in the presence of the patient and sent to lab. --16:17 09/10/20Karma Eddy R.N.( dr hernandez informed of poison control recommendations). --16:17 09/10/20 Karma Eddy R.N.16:25 09/10/2020 PROTONIX (Pantoprazole Sodium) IVP 40 mg given over 2 minute(s) via site #1.Allergies verified and confirmed 5 rights. IV patency established. IV site checked: no pain, redness, orswelling. IV flushed thoroughly pre- and post-medication adm inistration. IVP given by RN. Informationreviewed with patient including reason for taking this medication, signs of allergic reaction and precautions.Verbalizes understanding. --16:25 09/10/20 Karma Eddy R.N.16:29 09/10/20. BP: 134/81. MAP: 98. HR: 83. RR: 14. O2 saturation: 100%. --16:29 09/10/20 [employer] Josette, Agrar33 Tech1( resting at present cooperative). --17:19 09/10/20 Karma Eddy R.N.17:20 09/10/2020 Macrodantin (Nitrofurantoin Macrocrystal) PO Capsules 100 mg given. Allergies verifiedand confirmed 5 rights. Information reviewed with patient including reason for taking this medication, signsof allergic reaction and precautions. Verbalizes understanding. --17:20 09/10/20 Karma Eddy R.N.17:22 09/10/20. BP: 128/64. MAP: 85. HR: 74. RR: 13. O2 saturation: 99%. --17:23 09/10/20 [place] [employer] Josette, Agrar33 Pfyh678:27 09/10/20. BP: 117/50. MAP: 72. HR: 71. RR: 23. O2 saturation: 100%. --17:27 09/10/20 [facility] Tech1 4 Clinical Report - Nurses [facility] Emergency Department [address] [place] [address] Phone #: ext- [phone] 09/10/2020 15:40 Patient: SCARLET SOLOMON Sex: F : 2000 Age: 20y( pt remains cooperative and alert is sleepy but wakes up with verbal prompting). --17:29 09/10/20 Karma Eddy R.N.( labs and update called to poison control stated as long as acetaminophen level is normal monitor for 6hours from arrival). --17:34 09/10/20 Karma Eddy R.N.( resting at present). --18:03 09/10/20 Karma Eddy R.N.18:12 09/10/20. BP: 119/58. MAP: 78. HR: 103. RR: 21. O2 saturation: 99%. --18:12 09/10/20 [facility], ER Slts911:33 09/10/20. BP: 102/75. MAP: 84. HR: 78. RR: 16. O2 saturation: 97%. --18:33 09/10/20 [facility], ER Mhsh543:58 09/10/20. BP: 125/66. MAP: 85. HR: 87. RR: 16. O2 saturation: 100%. --18:59 09/10/20 [facility] Josette, ER Wfcu494:28 09/10/20. BP: 115/59. MAP: 77. HR: 79. RR: 13. O2 saturation: 97%. --19:29 09/10/20 Josette Duff, Npfy125:58 09/10/20. BP: 132/68. MAP: 89. HR: 76. RR: 16. O2 saturation: 96%. --19:58 09/10/20 Josette Duff, Tech1( called [facility] spoke to Haydee [facility], was told the the MD Kim hasthe paperwork but has not looked at yet). --22:12 09/10/20 Karma Eddy R.N.19:00 09/10/2020 IV Fluids IV NS via IV site #1 Discontinued: completed. Total amount infused: 1000 mL.IV patency established. IV site checked: no pain, redness, or swelling. IV flushed thoroughly. --23:261 Mario Bradford entry - 21:00 09/10/20. Reassurance given.Rounding: Pain: denies pain. Position: states comfortable. Personal care / toileting: denies toileting needs.Proximity of possessions / care items: call light within easy reach. Plug ins: assured IV pump plugged in;checked status of equipment in use; located all cords, tubes, and lines to prevent fall hazard. --21:4709/10/20 Varun Bradford2:44 09/10/20. Reassurance given.Rounding: (Patient resting without complaints, easily aroused. Denies needs.). --23:45 09/10/20 Mario Bradford entry - 00:00 09/11/20. Reassurance given. 5 Clinical Report - Nurses [facility] Emergency Department [address] [place] [address] Phone #: ext- [phone] 09/10/2020 15:40 Patient: SCARLET SOLOMON Sex: F : 2000 Age: 20y Rounding: Pain: denies pain. Position: states comfortable. Personal care / toileting: denies toileting needs. Proximity of possessions / care items: call light within easy reach. --00:46 09/11/20 Suni Bradford 00:34 09/11/2020 Site #1 removed upon transfer. Catheter intact. Bandaid applied. --00:34 09/11/20 Suni Bradford 00:00 09/11/20. BP: 112/70. MAP: 84. HR: 88. RR: 16. O2 saturation: 96%. Pain level now: 0/10. --00:46 09/11/20 Suni Bradford Rounding: (Patient resting with eyes closed, respirations easy. ). --01:33 09/11/20 Suni Bradford.DISPOSITION / DISCHARGE Report was given to a nurse via a phone call and fax and visit overview. Report included patient's care, condition, vital signs, labs and medications. All questions were answered. Report was acknowledged and care was transferred. (Erin Martinez, Charge Nurse). Bed obtained and ready. --00:58 09/11/20 Suni Bradford Departure time: 01:50 09/11/2020. Transported via ambulance by EMS with mask. --01:54 09/11/20 Suni Bradford 01:50 09/11/20. BP: 121/71. HR: 69. RR: 14. O2 saturation: 99%. Temp: 97.4 F. Pain level now 0/10. --01:54 09/11/20 Suni Bradford Departure time: 01:50 09/11/2020. Patient's personal items; items were placed in belongings bag and transported with the patient. Collection of belongings was witnessed by hospital staff. --01:55 09/11/20 Suni Bradford Departure time: late entry - 01:50 09/11/2020. --01:55 09/11/20 Suni Bradford.Locked/Released at 09/11/2020 01:55 by Suni Bradford Name Value Range Interpretation Code Description Data Shira rce(s) Supporting Document(s) ID Date Data Source [id number] 09/10/2020 03:48:00 PM [facility] 1 Clinical Report - Physicians/Mid Levels [facility] Emergency Department [address] [place] [address] Phone #: ext- [phone] 09/10/2020 15:40 Patient: SCARLET SOLOMON Sex: F : 2000 Age: 20y Time Seen: 15:46 09/10/2020; initial patient contact. Arrived- By private vehicle. Historian- patient. Disposition decision: 00:00 09/11/2020.HISTORY OF PRESENT ILLNESS Chief Complaint: DRUG OVERDOSE. This occurred just prior to arrival. No toxic symptoms present. Multiple drugs taken- NSAID- ingested several Ibuprofen 600 mg pills (half bottle) and 4 OTC sedatives. The patient has experienced situational problems related to work (a lot of stress). No alcohol recently or recent drug use. The symptoms are described as moderate. The patient has been depressed. No anger, hallucinations or delusions. Has had suicidal thoughts but not been upset. Not confused or paranoid. 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 Similar symptoms previously. None. Recent medical care: Not recently seen/assessed.REVIEW OF SYSTEMSNo headache, dizziness, weakness, chest pain or palpitations. No abdominal pain, vomiting, diarrhea,black stools or numbness. No bloody stools, fever, sore throat, cough or difficulty breathing. No difficultywith urination, skin rash, enlarged lymph nodes or joint pain. All other systems reviewed and are negative.PAST HISTORYSee nurses notes. Problems: Panic Attack. Anxiety Reaction. Insomnia. Depression. Borderline personality disorder. Additional Surgeries: Cholecystectomy. 2 Clinical Report - Physicians/Mid Levels [facility] Emergency Department [address] [place] [address] Phone #: ext- [phone] 09/10/2020 15:40 Patient: SCARLET SOLOMON Sex: F : 2000 Age: 20y Medications: None. Allergies: No Known Drug Allergy.SOCIAL HISTORYNever smoker. No alcohol use or drug use.ADDITIONAL NOTESThe nursing notes have been reviewed with agreement regarding the chief complaint, HPI, ROS, PMH andpatient medications and allergies.PHYSICAL EXAMVital Signs: 09/10/2020 15:42 BP: 145/85. MAP: 105. HR: 82. RR: 18. O2 saturation: 99%. Temp: 98.5 F.Pain level now: 0/10. Have been reviewed. Oxygen saturation normal.Appearance: Alert. Oriented X3. No acute distress. Alert. Appears depressed.Eyes: Pupils equal, round and reactive to light. No nystagmus. Extraocular movements normal.ENT: Normal ENT inspection. Pharynx normal.Neck: Normal inspection. Neck supple.CVS: Normal heart rate and rhythm. Heart sounds normal. Pulses normal.Respiratory: No respiratory distress. Painless inspiration. Breath sounds normal.Abdomen: Soft and nontender. No organomegaly.Back: Normal inspection.Skin: Skin warm and dry. Normal skin color. No rash. Normal skin turgor.Extremities: Extremities exhibit normal ROM. No lower extremity edema.Neuro: Alert. Oriented X 3. Mood/affect normal. Speech normal. Cranial nerves normal (as tested).No cerebellar findings. No motor deficit. No sensory deficit. Reflexes normal.Psych: Oriented X 3. Appears depressed. Flat affect. Speech normal. Cognition normal. Thoughtprocess and content normal. No apparent hallucinations or delusions. She expresses suicidal thoughtsand a specific plan. Insight and judgement normal.LABS, X-RAYS, AND EKGEKG: No acute process. No acute ischemia. Normal EKG. Normal sinus rhythm. Rate: 85/min.Normal ST and T waves. Prior EKG unavailable. The study has been interpreted contemporaneously byme. The EKG appears to be a good tracing. Interpretation time: 15:49 09/10/2020.Chest X-ray: No acute disease. Views: AP (portable). Technique: good. The X-rays were interpretedby the radiologist and contemporaneously by me. Interpretation time: 16:25 09/10/2020.Laboratory Tests: Laboratory tests have been ordered, with results reviewed and considered in th emedical decision making process. Culture, Urine: (STELLA: 09/10/2020 17:14) ( MsgRcvd 09/10/2020 20:46) Canceled SOURCE: Urine, Clean Catch CBC w Diff: (STELLA: 09/10/2020 16:01) ( MsgRcvd 09/10/2020 16:57) Final results 3 Clinical Report - Physicians/Mid Levels [facility] Emergency Department [address] [place] [address] Phone #: ext- [phone] 09/10/2020 15:40 Patient: SCARLET SOLOMON Sex: F : 2000 Age: 20y Test Result Flag Units (Reference) CBC W/AUTOMATED DIFF COMPLETE BLOOD COUNT WBC 10.6 10/uL (4.2 - 11.0) RBC 4.73 10/uL (4.20 - 5.40) HEMOGLOBIN 13.9 g/dL (12.0 - 16.0) HEMATOCRIT 41.0 % (37.0 - 47.0) MCV 86.7 fL (81.0 - 101) MCH 29.4 pg (27.0 - 34.0) MCHC 33.9 g/dL (31.0 - 36.0) RDW 11.7 % (11.5 - 14.5) PLATELETS 413 10/uL (150 - 450) MPV 8.6 fL (7.4 - 10.4) NEUT 68.1 % (37.0 - 80.0) LYMPH 21.4 L % (25.0 - 40.0) MONO 7.7 % (3.0 - 8.0) EOS 1.8 % (0.0 - 7.0) BASO 0.6 % (0.0 - 2.5) %IG 0.4 H % (0.0 - 0.0) %NRBC 0.0 % (0.0 - 0.0) #NEUT 7.21 H 10/uL (2.00 - 6.90) #LYMPH 2.26 10/uL (0.60 - 3.40) #MONO 0.81 10/uL (0.00 - 0.90) #EOS 0.19 10/uL (0.00 - 0.70) #BASO 0.06 10/uL (0.00 - 0.20) #IG 0.04 10/uL (0.00 - 0.10) #NRBC 0.00 10/uL (0.00 - 0.00) MANUAL DIFF NOT INDICATED RBC MORPH NOT INDICATEDCMP: (STELLA: 09/10/2020 16:01) ( MsgRcvd 09/10/2020 17:13) Final results Test Result Flag Units (Reference) COMPREHENSIVE METABOLIC PANEL COMPREHENSIVE METABOLIC PANEL SODIUM 137 mEq/L (134 - 153) POTASSIUM 3.9 mEq/L (3.6 - 5.0) CHLORIDE 101 mEq/L (98 - 107) CO2 26 MEQ/L (22 - 30) GLUCOSE 94 MG/DL (70 - 99) BUN 11 MG/DL (7 - 21) CREATININE 0.5 L MG/DL (0.7 - 1.5) BUN/CREAT 22 (8 - 27) TOTAL PROTEIN 7.1 G/DL (6.3 - 8.2) ALBUMIN 4.5 G/DL (3.9 - 5.0) GLOBULIN 2.6 GM/DL (2.4 - 3.2) A/G RATIO 1.7 (0.8 - 2.0) CALCIUM 9.1 MG/DL (8.4 - 10.2) TOTAL BILI <0.7 MG/DL (0.2 - 1.3) ALKALINE PHOS 103 U/L (38 - 126) SGOT/AST 22 U/L (5 - 40) SGPT/ALT 20 U/L (7 - 56) ANION GAP 10.0 mmol/L (8.0 - 16.0) AGE 20 yrs NON-AA GFR >60 mL/min AFR AMER GFR >60 mL/min Male GFR Interprentation 20-49 yrs >60 mL/min Wkclpt81-02 yrs >56 mL/min Normal 60-69 yrs >49 mL/min Normal 70-79yrs>42 mL/min Normal 80 and above >35 mL/min Normal Female GFR 4 Clinical Report - Physicians/Mid Levels [facility] Emergency Department [address] [place] [address] Phone #: ext- [phone] 09/10/2020 15:40 Patient: SCARLET SOLOMON Sex: F : 2000 Age: 20yInterpretation 20-39 yrs >60 mL/min Normal 40-49 yrs >58 mL/minNormal 50-59 yrs >51 mL/min Normal 60-69 yrs >45 mL/min Rtxdou26-61 yrs >39 mL/min Normal 80 and above >32 mL/min NormalTSH: (STELLA: 09/10/2020 16:01) ( MsgRcvd 09/10/2020 17:04) Final results Test Result Flag Units (Reference) TSH 2.48 uIU/mL (0.47 - 5.01)Drug Screen-Urine: (STELLA: 09/10/2020 16:00) ( MsgRcvd 09/10/2020 16:52) Final results Test Result Flag Units (Refere nce) DRUG SCREEN URINE URINE DRUG SCREEN AMPHETAMINES NEGATIVE (NORMAL: NEGAT BARBITURATES NEGATIVE (NORMAL: NEGAT BENZO NEGATIVE (NORMAL: NEGAT COCAINE NEGATIVE (NORMAL: NEGAT THC NEGATIVE (NORMAL: NEGAT OPIATES NEGATIVE (NORMAL: NEGAT PCP NEGATIVE (NORMAL: NEGAT \\BLDo\\URINE DRUG SCREEN INTERPRETATION\\BLDx\\ THE CUTOFFF LEVELS FORDETECTION ARE FOLLOWS: AMPHETAMINES 1000 ng/mlBARBITUARATES 200 ng/ml BENZODIAZEP GUS 100 ng/mlTHC 50 ng/ml PHENCYCLIDINE 25 ng/mlOPIATES 300 ng/ml COCAINE 300 ng/mlALL POSITIVES ARE CONSIDERED PRESUMPTIVE POSITIVE CONFIRMATION WILL BE PERFORMED AT [facility].Acetaminophen Level: (STELLA: 09/10/2020 16:01) ( [facility] 09/10/[place] 18:28) Final results Test Result Flag Units (Reference) ACETAMINOPHEN <5.0 UG/ML (0.0 - 30.0)Salicylate Level: (STELLA: 09/10/2020 16:01) ( MigRcvd 09/10/2020 17:06) Final results Test Result Flag Units (Reference) SALICYLATE <0.3 L mg/dL (2.0 - 20.0)ETOH: (STELLA: 09/10/2020 16:01) ( MsgRcvd 09/10/2020 17:04) Final results Test Result Flag Units (Reference) ALCOHOL <10.0 MG/DL ALCOHOL % 0.01 % (0.00 - 0.01) *FOR MEDICAL PURPOSES ONLY*Urinalysis: (STELLA: 09/10/2020 16:00) ( [facility] 16[facility]51[facility] Final results Test Result Flag Units (Reference) URINALYSIS URINALYSIS SOURCE Clean Catch COLOR yellow (NORMAL: Yello CLARITY hazy (NORMAL: Clear SPEC GRAVITY 1.010 (1.001 - 1.030 pH 7 (5 - 9) GLUCOSE NORM (NORMAL: Negat 5 Clinical Report - Physicians/Mid Levels [facility] Emergency Department [address] [place] [address] Phone #: ext- [phone] 09/10/2020 15:40 Patient: SCARLET SOLOMON Sex: F : 2000 Age: 20y BILIRUBIN NEG (NORMAL: Negat KETONE NEG (NORMAL: Negat PROTEIN 30 (NORMAL: Negat NITRITE POS (NORMAL: Negat BLOOD 250 A (NORMAL: Negat LEUK EST 25 (NORMAL: Negat UROBILINOGEN NOR (less than 1.0 MICROSCOPIC See Below WBC 3 - 5 (NORMAL: NONE RBC 15 - 20 A (NORMAL: NONE EPITHELIAL MANY A (NORMAL: NONE BACTERIA 2+ MOD A (NORMAL: NONEVenous Blood Gas: (STELLA: 09/10/2020 16:01) ( MsgRcvd 09/10/2020 16:26) Final results Test Result Flag Units (Reference) pH V 7.34 (7.32 - 7.43) pCO2 V 51.0 mm/HG (38.0 - 51.0) pO2 V 28.4 L mm/HG (30.0 - 55.0) HCO3 V 26.7 meq/L (22.0 - 29.0) TCO2 V 28.3 meq/L (22.0 - 29.0) BASE EXCESS 0.1 (-2.0 - 2.0) O2 SAT V 48.5 % (40.0 - 85.0)Beta-HCG, Qual Serum: (STELLA: 09/10/2020 16:01) ( MsgRcvd 09/10/2020 16:50) Final results Test Result Flag Units (Reference) HCG SERUM QUAL NEGATIVE (NORMAL: NEGAT HCG SERUM QL REENTER NEGATIVE (NORMAL: NEGAT { KIT LOT # [id number] ){ KIT EXP [id number] ){ PROCEDURAL CONTROL VALID)COVID-19 CAH: (STELLA: 09/10/2020 16:07) ( MsgRcvd 09/10/2020 16:36) Final results Test Result Flag Units (Reference) COVID-19 NOT DETECTED COVID-19 REENTER NOT DETECTED { PROCEDURAL CONTROL VALID KIT LOT # _[id number] 09/10/20.1635.DW . KIT EXP DATE _37-74-13 51/27/21.1635.DW . NORMAL RANGE IS NOT DETECTEDNEGATIVE RESULTS SHOULD BE TREATEDAS PRESUMPTIVE AND, IF INCONSISTENT WITHCLINICAL SIGNS AND SYMPTOMS OR NECESSARY FOR PATIENT MANAGEMENT, SHOULDBETESTED WITH DIFFERENT AUTHORIZED OR CLEARED MOLECULAR TESTS. NEGATIVE RESULTSDO NOT PRECLUDE [id number] AND SHOULD NOT BE USED THE SOLE BASISFOR PATIENT MANAGEMENT DECISIONS.Chest Portable 1 View: (STELLA: 09/10/2020 15:59) ( MsgRcvd 09/10/2020 22:48) In ProgressCHEST PORTABLEReason(s): OverdoseTRANSPORTATION: P IV? O2? Oxygen?(No) Room: [place] [address] PHONE: [phone] FAX: [phone] Name .................. : JUANITO Waddell Acct Number.................. : [id number] ROOM. ................. : TR-02 Number ................... : [id number] Clinical Report - Physicians/Mid Levels [facility] Emergency Department [address] [place] [address] Phone #: ext- [phone] 09/10/2020 15:40 Patient: SCARLET SOLOMON Sex: F : 2000 Age: 20y Stay type ............. : E/R Discharge Date......... ... : Admit Date ......... : 09/10/20 Admit Phys .................... : TURRIN LESLY Date of ....... : 2000 Family Phys ................... : UNKNOWN CO Phone .................. : [phone] Age ................................ : 20 Film# .................. .:[id number] Sex ................................. : F Unsigned transcriptions are preliminary reports and do not represent a medical or legal document CHEST PORTABLE [id number] COMPLETE:09/10/20 20:13 KJE [id number] Reason(s): Overdose PORTABLE CHEST X-RAY: INDICATION: Overdose. FINDINGS: The cardiac and mediastinal silhouettes appear normal and the lungs are clear. The bones and soft tissues are normal. The upper abdomen is unremarkable. IMPRESSION: No acute disease identifiable. Electronically Reviewed and Signed By MARYANN ANDRADE MRA Transcribe Initials: BENJAMIN , Transcribe Date: 09/10/20 22:46, Dictation Date: <<REPDIST>> Page 1 of 1.PROGRESS AND PROCEDURESCourse of Care: 16:25 09/10/20. poison control contacted and they recommend conservative Tx andmonitor for 6 hrs 17:15 09/10/20. workup all in except acetaminophen level, and reviewed, and nml except for UTI, urine culture done; pt sleeping comfortably 18:47 09/10/20. acetaminophen level is negative 19:27 09/10/20. pt resting on stretcher; waiting for [facility] ER to call back for transfer 23:21 09/10/20. still waiting for [facility] ER to call back, pt sleeping on stretcher 00:00 09/11/20. Dr. Kim, ER MD at [facility], called back and accepted pt for transfer. 7 Clinical Report - Physicians/Mid Levels [facility] Emergency Department [address] [place] [address] Phone #: ext- [phone] 09/10/2020 15:40 Patient: SCARLET SOLOMON Sex: F : 2000 Age: 20y Critical care performed (60 minutes). Time is exclusive of separately billable procedures. Time includes: direct patient care, patient reassessment, coordination of patient care, interpretation of data (laboratory data and chest xrays), medical consultation and documentation of patient care- see progress notes. Daughter counseled in person regarding the patient's stable condition, test results, diagnosis and need for transfer. Disposition: Benefits, risks and alternatives to transfer explained to patient. Transferred to [facility]. Summary of care (CCDA) provided to transport team and transfer facility via paper. Condition: good and stable.CLINICAL IMPRESSION Intentional multi-drug overdose with ibuprofen and OTC sedative. Suicide attempt. 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 Acute urinary tract infection with cystitis. No hematuria.(Electronically signed by Benedict Hernandez M.D. 09/11/2020 02:06) Name Value Range Interpretation Code Description Data Shira rce(s) Supporting Document(s) ID Date Data Source [id number] 09/10/2020 04:36:00 PM [facility] NOT DETECTEDNOT DETECTED{ PROC EDURAL CONTROL VALID KIT LOT # _[id number] 09/10/20.1635.DW . KIT EXP DATE _85-50-39 09/10/20.1635.DW . NORMAL RANGE IS NOT DETECTEDNEGATIVE RESULTS SHOULD BE TREATED PRESUMPTIVE AND, IF INCONSISTENT WITHCLINICAL SIGNS AND SYMPTOMS OR NECESSARY FOR PATIENT MANAGEMENT, SHOULD BETESTED WITH DIFFERENT AUTHORIZED OR CLEARED MOLECULAR TESTS. NEGATIVE RESULTSDO NOT PRECLUDE SARS-CoV-2 INFECTION AND SHOULD NOT BE USED THE SOLE BASISFOR PATIENT MANAGEMENT DECISIONS. Name Value Range Interpretation Code Description Data Shira rce(s) Supporting Document(s) ID Date Data Source [id number] 09/10/2020 06:28:00 PM [facility] Name Value Range Interpretation Code Description Data Shira rce(s) Supporting Document(s) Acetaminophen [Presence] in Urine <5.0 UG/ML 0.0 - 30.0 [facility] ID Date Data Source [id number] 09/10/2020 05:13:00 PM [facility] Name Value Range Interpretation Code Description Data Shira rce(s) Supporting Document(s) COMPREHENSIVE METABOLIC PANEL [facility] COMPREHENSIVE METABOLIC PANEL Sodium [Moles/volume] in Serum or Plasma 137 mEq/L 134 - 153 [facility] Potassium [Moles/volume] in Serum or Plasma 3.9 mEq/L 3.6 - 5.0 [facility] Chloride [Moles/volume] in Serum or Plasma 101 mEq/L 98 - 107 [facility] Carbon dioxide, total [Moles/volume] in Serum or Plasma 26 MEQ/L 22 - 30 [facility] Glucose [Mass/volume] in Serum or Plasma 94 MG/DL 70 - 99 [facility] BUN 11 MG[facility]DL 7 - [facility] Creat[facility] [Mass/volume] in Serum or Plasma 0.5 MG/DL 0.7 - 1.[address] [facility] BUN/CREAT 22 8 - 27 [facility] Protein [Mass/volume] in Serum or Plasma 7.1 G/DL 6.3 - 8.2 [facility] Albumin [Mass/volume] in Serum or Plasma 4.5 G/DL 3.9 - 5.0 [facility] Globulin [Mass/volume] in Serum by calculation 2.6 GM/DL 2.4 - 3.2 [facility] A/G RATIO 1.7 0.8 - 2.0 [facility] Calcium [Mass/volume] in Serum or Plasma 9.1 MG/DL 8.4 - 10.2 [facility] Bilirubin.total [Mass/volume] in Serum or Plasma <0.7 MG/DL 0.2 - 1.3 [facility] Alkaline phosphatase [Enzymatic activity/volume] in Serum or Plasma 103 U/L 38 - 126 [facility] Aspartate aminotransferase [Enzymatic activity/volume] in Serum or Plasma 22 U/L 5 - 40 [facility] Alanine aminotransferase [Enzymatic activity/volume] in Seru m or Plasma 20 U/L 7 - 56 [facility] Anion gap 3 in Serum or Plasma 10.0 mmol/L 8.0 - 16.0 [facility] AGE 20 yrs [facility] al NON-AA GFR >60 mL/min [facility] ital AFR AMER GFR >60 mL/min [facility] Ho spital Male GFR In terprentation 20-49 yrs >60 mL/min Normal 50-59 yrs >56 mL/min Normal 60-69 yrs >49 mL/min Normal 70-79yrs >42 mL/min Normal 80 and above >35 mL/min Normal Female GFR Interpretation 20-39 yrs >60 mL/min Normal 40-49 yrs >58 mL/min Normal 50-59 yrs >51 mL/min Normal 60-69 yrs >45 mL/min Normal 70-79 yrs >39 mL/min Normal 80 and above >32 mL/min Normal ID Date Data Source [id number] 09/10/2020 05:05:00 PM [facility] Name Value Range Interpretation Code Description Data Shira rce(s) Supporting Document(s) SALICYLATE <0.3 mg/dL 2.0 - 20.0 L [facility] ID Date Data Source [id number] 09/10/2020 05:04:00 PM [facility] Name Value Range Interpretation Code Description Data Shira rce(s) Supporting Document(s) Ethanol [Moles/volume] in Blood <10.0 MG/DL [facility] ALCOHOL % 0.01 % 0.00 - 0.01 [facility] ital *FOR MEDICAL PURPOSES ONLY * ID Date Data Source [id number] 09/10/2020 05:04:[address] [facility] Name Value Range Interpretation Code Description Data Shira rce(s) Supporting Document(s) Thyrotropin [Units/volume] in Serum or Plasma by Detec tion limit <= 0.05 mIU/L 2.48 uIU/mL 0.47 - 5.01 [facility] ID Date Data Source [id number] 09/10/2020 04:52:[address] [facility] Name Value Range Interpretation Code Description Data Shira rce(s) Supporting Document(s) CBC W/AUTOMATED DIFF [facility] COMPLETE BLOOD COUNT Leukocytes [#/volume] in Blood by Automated count 10.6 10^3/uL 4.2 - 11.0 [facility] Erythrocytes [#/volume] in Blood by Automated count 4.73 10^6/uL 4. 20 - 5.40 [facility] Hemoglobin [Mass/volume] in Blood 13.9 g/dL 12.0 - 16.0 [facility] Hematocrit [Volume Fraction] of Blood by Automated count 41.0 % 3 7.0 - 47.0 [facility] Erythrocyte mean corpuscular volume [Entitic volume] by Auto mated count 86.7 fL 81.0 - 101 [facility] Erythrocyte mean corpuscular hemoglobin [Entitic mass] by Automated count 29.4 pg 27.0 - 34.0 [facility] Erythrocyte mean corpuscular hemoglobin concentration [Mass/volume] by Automated count 33.9 g/dL 31.0 - 36.0 [facility] Erythrocyte distribution width [Ratio] by Automated count 11.7 % 11.5 - 14.5 [facility] Platelets [#/volume] in Blood by Automated count 413 10^3/uL 150 - [address] [facility] Platelet mean volume [Entitic volume] in Blood by Automated count 8.6 fL 7.4 - 10.4 [facility] Neutrophils/100 leukocytes in Blood by Automated count 68.1 % 37. 0 - 80.0 [facility] Lymphocytes/100 leukocytes in Blood by Manual count 21.4 % 25.0 - 40.[address] [facility] Monocytes/100 leukocytes in Blood by Automated count 7.7 % 3.0 - 8.0 [facility] Eosinophils/100 leukocytes in Blood by Automated count 1.8 % 0.0 - 7.0 [facility] Basophils/100 leukocytes in Blood by Automated count 0.6 % 0.0 - 2.5 [facility] %IG 0.4 % 0.0 - 0.0 [facility] %[facility] 0.0 % 0.0 - 0.0 [facility] al Neutrophils [#/volume] in Blood by Automated count 7.21 10^3/uL 2.00 - 6.[address] [facility] Lymphocytes [#/volume] in Blood by Automated count 2.26 10^3/uL 0.60 - 3.40 [facility] Monocytes [#/volume] in Blood by Automated count 0.81 10^3/uL 0.00 - 0.90 [facility] Eosinophils [#/volume] in Blood by Automated count 0.19 10^3/uL 0.00 - 0.70 [facility] Basophils [#/volume] in Blood by Automated count 0.06 10^3/uL 0.00 - 0.20 [facility] #IG 0.04 10^3/uL 0.00 - 0.10 [facility]spital #NRBC 0.00 10^3/uL 0.00 - 0.00 [facility] MANUAL DIFF NOT INDICATED [facility] RBC MORPH NOT INDICATED [facility] ID Date Data Source [id number] 09/10/2020 04:50:[address] [facility] Name Value Range Interpretation Code Description Data Shira rce(s) Supporting Document(s) HCG SERUM QUAL NEGATIVE NORMAL: NEGATIVE [facility] HCG SERUM QL REENTER NEGATIVE NORMAL: NEGATIVE [facility] { KIT LOT # [id number] ){ KIT EXP DATE 05-20-21 ){ PROCEDURAL CONTROL VALID ) ID Date Data Source [id number] 09/10/2020 04:26:[address] [facility] Name Value Range Interpretation Code Description Data Shira rce(s) Supporting Document(s) pH of Serum or Plasma 7.34 7.32 - 7.43 [facility] pCO2 V 51.0 mm/HG 38.0 - 51.0 [facility] pO2 V 28.4 mm/HG 30.0 - 55.0 L [facility] Bicarbonate [Moles/volume] in Venous blood 26.7 meq/L 22.0 - 29.0 [facility] TCO2 V 28.3 meq/L 22.0 - 29.0 [facility] Base excess in Blood by calculation 0.1 -2.0 - 2.0 [facility] O2 SAT V 48.5 % 40.0 - 85.0 [facility] ital ID Date Data Source [id number] 09/10/2020 04:52:00 PM [facility] Name Value Range Interpretation Code Description Data Shira rce(s) Supporting Document(s) DRUG SCREEN URINE [facility] URINE DRUG SCREEN Amphetamine [Presence] in Urine by Screen method NEGATIVE NORMAL: N EGATIVE [facility] BARBITURATES NEGATIVE NORMAL: NEGATIVE [facility] BENZO NEGATIVE NORMAL: NEGATIVE [facility] COCAINE NEGATIVE NORMAL: NEGATIVE [facility] Tetrahydrocannabinol [Presence] in Urine NEGATIVE NORMAL: NEGATIVE [facility] OPIATES NEGATIVE NORMAL: NEGATIVE [facility] Phencyclidine [Presence] in Urine by Screen method NEGATIVE NOR MAL: NEGATIVE [facility] \\BLDo\\URINE DRUG SCR EEN INTERPRETATION\\BLDx\\ THE CUTOFFF LEVELS FOR DETECTION ARE FOLLOWS: AMPHETAMINES 1000 ng/ml BARBITUARATES 200 ng/ml BENZODIAZEPINES 100 ng/ml THC 50 ng/ml PHENCYCLIDINE 25 ng/ml OPIATES 300 ng/ml COCAINE 300 ng/ml ALL POSITIVES ARE CONSIDERED PRESUMPTIVE POSITIVE CONFIRMATION WILL BE PERFORMED AT PHYSICIAN REQUEST. ID Date Data Source [id number] 09/10/2020 04:51:[address] [facility] Name Value Range Interpretation Code Description Data Shira rce(s) Supporting Document(s) [facility] SOURCE Clean Catch [facility] ital COLOR yellow NORMAL: Yellow [facility] CLARITY hazy NORMAL: Clear [facility] Specific gravity of Urine by Test strip 1.010 1.001 - 1.030 [facility] pH 7 5 - 9 [facility] Glucose [Mass/volume] in Urine by Test strip NORM NORMAL: Negat [facility] Bilirubin.total [Presence] in Urine by Test strip NEG NORMAL: Negative [facility] Ketones [Presence] in Urine by Test strip NEG NORMAL: Negative [facility] Protein [Mass/volume] in Urine by Test strip 30 NORMAL: Negat [facility] Nitrite [Presence] in Urine by Test strip POS NORMAL: Negative [facility] BLOOD 250 NORMAL: Negative [facility] Leukocyte esterase [Presence] in Urine by Test strip 25 MAURIZIO L: Negative [facility] Urobilinogen [Mass/volume] in Urine by Test strip NOR less rocky n 1.0 mg/dL [facility] MICROSCOPIC See Below [facility] ital WBC 3 - 5 NORMAL: NONE SEEN [facility] Erythrocytes [#/volume] in Urine by Test strip 15 - 20 NORMAL: NON E SEEN A [facility] EPITHELIAL MANY NORMAL: NONE SEEN A [facility] Bacteria [Presence] in Urine sediment by Light microscopy 2+ MOD NORMAL: NONE SEEN A [facility] ID Date Data Source [id number] 08/27/2020 01:26:00 PM EST [facility] ([facility]) Name Value Range Interpretation Code Description Data Shira rce(s) Supporting Document(s) Color of Urine Laboratory test result [facility] ([facility]) Appearance of Urine Laboratory test result [facility] ([facility]) pH of Urine by Test strip 5 [facility] NT ([facility]) Spec [place] 1.020 [facility] ([facility]) Leukocytes Laboratory test result [facility] ([facility]) Nitrate [Presence] in Urine Laboratory test result [facility] ([facility]) Inhouse Glucose Laboratory test result [facility] ([facility]) Protein [Presence] in Urine by Test strip Laboratory test result [facility] ([facility]) Urobilinogen Laboratory test result [facility] ([facility]) Ketones [Presence] in Urine by Test strip Laboratory test result [facility] ([facility]) Bilirubin.total [Presence] in Urine by Test strip Laboratory test res ult [facility] ([facility]) Blood type and Indirect antibody screen panel - Blood 250 [facility] ([facility]) ID Date Data Source [id number] 06/22/2020 11:52:00 AM [facility] Name Value Range Interpretation Code Description Data Shira rce(s) Supporting Document(s) LAB - SPECIMEN REJECTION [facility] Specimen Integrity/Specimen Recollection The patient sample needs to be resubmitted for the following reason: Test(s) Ordered GI PANEL [facility] Rejection Reason Sample Compromised [facility] { One or more of the tests you ordered cannot be performed.{ Please recollect, reorder, and resubmit if needed. ID Date Data Source [id number] 06/21/2020 07:16:00 PM [facility] [address] [facility] Emergency Department [address] [place] [address] Phone #: ext- [phone] 06/21/2020 19:02 Patient: SCARLET SOLOMON Sex: F : 2000 Age: 20yWEIGHT:86.1 kg (S) HEIGHT:66 inches (S) BMI:30.7ALLERGIES: NoneCHIEF COMPLAINT: abdominal pain, flank painDIAGNOSIS: Abdominal pain, Mesenteric lymphadenitis, UrticariaLAB ORDERSOrder Description Priority Entered Acknowledged Initialed 4 Panel 19:19 06/21/2020 19:20 Russell Wells Jennifer Jennifer R.NElder R.NElder; Verbal order per; Torrey Arevalo PhysicianUrinalysis (Clean STAT 19:20 06/21/2020 19:20 Eric Wells Jennifer Jennifer R.N. RElderNElder; Verbal order per; Torrey Arevalo PhysicianCBC w Diff STAT 19:35 06/21/2020 19:39 Eliseo Cuellar Howard ; Beth BallCMP STAT 19:35 06/21/2020 19:39 Eliseo Cuellar Howard ; Beth BallLipase STAT 19:35 06/21/2020 19:39 Eliseo Cuellar Howard ; Beth BallHCG Serum Qual STAT 19:35 06/21/2020 19:39 Eliseo Cuellar Howard ; Beth BallHCG Serum Quant STAT 19:35 06/21/2020 19:39 Eliseo Cuellar Howard ; Beth BallDIAGNOSTIC STUDY ORDERSOrder Description Priority Entered Acknowledged InitialedMEDICATION/IV/DRIP/FLUID ORDERSOrder Description Priority Entered Acknowledged InitialedIV NS 1000 mL 20:37 06/21/2020 20:42 Carroll,Bolus : Bolus 1000 Rashmi Hodges R.N.mL (X1) R.NElder; Written order per; Behzad Gomes [address] [facility] Emergency Department [address] [place] [address] Phone #: ext- [phone] 06/21/2020 19:02 Patient: SCARLET SOLOMON Sex: F : 2000 Age: 20yBentyl PO 10 mg 21:23 06/21/2020 21:29 Eliseo Hodges Howard ; Rashmi BalltraMADol PO 50 mg 21:24 06/21/2020 Hold: pt driving(NOW x1) Behzad Gomes ; 21:30 Rashmi Hodges R.N.GENERAL ORDERSOrder Description Priority Entered Acknowledged Initialed[Electronically signed by Rashmi Hodges R.N. (22:23 06/21/2020)][Electronically signed by Behzad Gomes (11:46 06/22/2020)][Electronically locked by Rashmi Hodges R.N. (22:23 06/21/2020)] Name Value Range Interpretation Code Description Data Shira rce(s) Supporting Document(s) ID Date Data Source [id number] 06/21/2020 07:16:[address] [facility] [address] [facility] Emergency Department [address] [place] [address] Phone #: [phone] ext- [phone] 06/21/2020 19:02 Patient: SCARLET SOLOMON Sex: F : 2000 Age: 20yWeight: 86.1 kgHeight/Length: 66 in.BMI: 30.7ALLERGIES: NoneThe patient's Home Medications are listed below:THE FOLLOWING MEDICATIONS NEED TO BE RECONCILED: Abilify Oral Cipro Oral 500 mg, 2x a day, x 10 days Zoloft OralThe source(s) of the original Home Medication information:patientThe following Medications were given to the patient in the Emergency Department:IV NS w/ bolus IV Fluids bolus 0, then 1000 mL/hr, administered: 06/21/2020 8:41:00 PMBentyl [PO] PO 10 mg, administered: 06/21/2020 9:29:00 PMThe following Medications were prescribed to the patient:dicyclomine 20 mg tablet Take 1 tablet four times a day -- Dispense 20 tablet. Refills: 0. Substitutionpermitted.Pharmacy - [facility] [id number] ; [place] [address]. . -- Behzad Gomes Name Value Range Interpretation Code Description Data Shira rce(s) Supporting Document(s) ID Date Data Source [id number] 06/21/2020 07:16:00 PM [facility] [address] [facility] Emergency Department [address] [place] [address] Phone #: ext- [phone] 06/21/2020 19:02 Patient: SCARLET SOLOMON Sex: F : 2000 Age: 20yWeight: 86.1 kgHeight/Length: 66 inBMI: 30.7ALLERGIES: None Date/Time Medication Administered Medication OrderedStart IV NS W/ BOLUS IV NS 1000 mL Bolus : Bolus 120520:41 06/21/2020 Dose: IV Fluids mL (X1)Rashmi Hodges R.N. Rate: 1000 mL/hr---- Dispensed: 1000 mL bagStop Site: #1 right AC22:00 06/21/2020Rashmi Hodges R.N.Given BENTYL [PO] (DICYCLOMINE HCL) Bentyl PO 10 mg21:29 06/21/2020 Dose: 10 mg Capsules Rashmi Diaz R.N. Name Value Range Interpretation Code Description Data Shira rce(s) Supporting Document(s) ID Date Data Source [id number] 06/21/2020 07:16:00 PM [facility] [address] [facility] Emergency Department [address] [place] [address] Phone #: ext- [phone] 06/21/2020 19:02 Patient: SCARLET SOLOMON Sex: F : 2000 Age: 20yAcute right lower quadrant abdominal pain.Acute hives secondary to unknown cause.Acute mesenteric lymphadenitisINSTRUCTIONSDrink plenty of fluids. Take clear liquids only.(Patient to follow up with primary medical doctor for possible referral to urologist and or rn er.Patient to take bentyl as directed. Patient to inform primary medical doctor of diagnosis of mesentericadenitis. Patient advised to stop antibiotic until c-diff test comes b ack.).Prescription Medications:dicyclomine 20 mg tablet Take 1 tablet four times a day -- Dispense 20 tablet. Refills: 0. Substitutionpermitted.Pharmacy - [facility] [phone] ; [place] [address]. .Follow-up:Return to the emergency department if not better.Understanding of the discharge instructions verbalized by patient.Follow-up with: Follow up Tuesday. Call for an appointment. Reason for referral: evaluation and treatment. ADDITIONAL INFORMATIONMesenteric AdenitisThe mesentery is a sheet of tissue that attaches the intestines to the belly (abdominal) wall. Lymphnodes are small glands throughout the body. They are part of the system that fights infection.Mesenteric adenitis is swelling of the lymph nodes in the mesentery. It is also called mesentericlymphadenitis. The problem is caused by an infection, or an inflammatory condition, often of theintestines.Mesenteric adenitis can cause these symptoms: Severe pain in the abdomen, which can be all over [address] [facility] Emergency Department [address] [place] [address] Phone #: ext- [phone] 06/21/2020 19:02 Patient: SCARLET SOLOMON Sex: F : 2000 Age: 20y Pain can be in the lower right side, sometimes mimicking appendicitis Nausea and vomiting Diarrhea Fever Loss of appetite MalaiseThis condition can be hard to diagnose because the pain is often not just in one spot. You may needtests for this reason. Sometimes, the pain shifts to the lower right part of your abdomen. When thishappens, it may seem like appendicitis. This is another reason for testing.The problem most often goes away in a few days. If you have a bacterial infection, you may need totake antibiotics. Medicines may also be given to help relieve pain until the problem calms down.Home care Your healthcare provider may prescribe medicines for pain, nausea, or infection. Follow the healthcare provider's instructions when using these medicines. If you are given medicine for infection, take all of it as directed until it is gone, even if you feel better. Rest until you feel better. To help relieve abdominal pain, soak a towel in warm water and place it on your belly. If you have had diarrhea or vomiting, follow the guidelines you are given for what to eat and drink and what to avoid. Drink plenty of fluids. Don't smoke or drink alcohol.Follo w-up careFollow up with your healthcare provider, or as advised. It is often very hard to tell mesenteric adenitisapart from appendicitis. So close follow-up is needed.If X-rays were done, a radiologist will look at them. You will be told if there are changes.Call 911Call 911 if any of these occur: Trouble breathing [address] [facility] Emergency Department [address] [place] [address] Phone #: ext- [phone] 06/21/2020 19:02 Patient: SCARLET SOLOMON Sex: F : 2000 Age: 20y Confusion Very drowsy or trouble awakening Fainting or loss of consciousness Rapid heart rate Chest painWhen to seek medical adviceCall your healthcare provider right away if any of these occur: Fever of 100.4F (38C) or higher, or as directed by your healthcare provider Pain not relieved with medicine, or pain that goes away and returns Pain that is getting worse over time or changing in location Pain that localizes to the right lower abdomen, and not improving or is worsening Severe diarrhea or vomiting Severe headache Few or no stools or gas Little or no urine Leg or foot cramps Small dark red dots on the skin Swelling in the abdomen Bloody stools [id number] [employer]. [address] [place] [address], [place] [address]. All rights reserved. This information is not intended as asubstitute for professional medical care. Always follow your healthcare professional's instructions.Hives (Adult)Hives are pink or red bumps on the skin. These bumps are also known as wheals. The bumps canitch, burn, or sting. Hives can occur anywhere on the body. They vary in size and shape and can formin clusters. Individual hives can appear and go away quickly. New hives may develop as old onesfade. Hives are common and usually harmless. Occasionally hives are a sign of a serious allergy.Hives are often caused by an allergic reaction. It may be an allergic reaction to foods such as fruit, [address] [facility] Emergency Department [address] [place] [address] Phone #: ext- [phone] 06/21/2020 19:02 Patient: SCARLET SOLOMON Sex: Bairon : 2000 Age: 20yshellfish, chocolate, nuts, or tomatoes. It may be a reaction to pollens, animal fur, or mold spores.Medicines, chemicals, and insect bites can also cause hives. And hives can be caused by hot sun orcold air. The cause of hives can be difficult to find.You may be given medicines to relieve swelling and itching. Follow all instructions when using thesemedicines. The hives will usually fade in a few days, but can last up to 2 weeks.Home careFollow these tips: Try to find the cause of the hives and eliminate it. Discuss possible causes with your healthcare provider. Future reactions to the same allergen may be worse. Don't scratch the hives. Scratching will delay healing. To reduce itching, apply cool, wet compresses to the skin. Dress in soft, loose cotton clothing. Don't bathe in hot water. This can make the itching worse. Apply an ice pack or cool pack wrapped in a thin towel to your skin. This will help reduce redness and itching. But if your hives were caused by exposure to cold, then do not apply more cold to them. You may use over-the counter antihistamines to reduce itching. Some older antihistamines, such as diphenhydramine and chlorpheniramine, are inexpensive. But they need to be taken often and may make you sleepy. They are best used at bedtime. Don't use diphenhydramine if you have glaucoma or have trouble urinating because of an enlarged prostate. Newer antihistamines, such as loratadine, cetirizine, and fexofenadine, are generally more expensive. But they tend to have fewer side effects, such as drowsiness. They can be taken less often. Another type of antihistamine is used to treat heartburn. This type includes ranitidine, nizatidine, famotidine, and cimetidine. These are sometimes used along with the above antihistamines if a single medicine is not working.Follow-up careFollow up with your healthcare provider if your symptoms don't get better in 2 days. Ask your providerabout allergy testing if you have had a severe reaction, or have had several episodes of hives. Mik llamas can use the allergy testing to find out what you are allergic to.When to seek medical adviceCall your healthcare provider right away if any of these occur: [address] [facility] Emergency Department [address] [place] [address] Phone #: ext- [phone] 06/21/2020 19:02 Patient: SCARLET SOLOMON Sex: F : 2000 Age: 20y Fever of 100.4F (38.0C) or higher, or as directed by your healthcare provider Redness, swelling, or pain Foul-smelling fluid coming from the rashCall 911Call 911 if any of the following occur: Swelling of the face, throat, or tongue Trouble breathing or swallowing Dizziness, weakness, or fainting [id number] [employer]. [address] [place] [address], [place] [address]. All rights reserved. This information is not intended as asubstitute for professional medical care. Always follow your healthcare professional's instructions. You have been given the following additional information: Adenitis, Mesenteric Hives (Adult)(Electronically signed by Behzad Gomes, 06/22/2020 11:46) Name Value Range Interpretation Code Description Data Shira rce(s) Supporting Document(s) ID Date Data Source [id number] 06/21/2020 07:16:[address] [facility] 1 Clinical Report - Nurses [facility] Emergency Department [address] [place] [address] Phone #: ext- [phone] 06/21/2020 19:02 Patient: SCARLET SOLOMON Sex: F : 2000 Age: 20yTRIAGEArrived by private vehicle. Historian: patient. Unaccompanied.Triage time: 19:03 06/21/2020. Acuity: LEVEL 3.Chief Complaint: ABDOMINAL PAIN, VOMITING and DIARRHEA and FLANK PAIN.Alert.Onset. (1.5 WEEKS AGO). ( Pt was seen in this ED for lower back pain, right flank pain about 1.5 weeksago and was seen in this ED and was treated for kidney infection, however was also told CT showedappendix was inflamed but no acute. Pt was instructed to return to ED if symptoms worsened, andreturned to this ED on 06/19/20, labs/US and repeat CT read normal and d/c diagnosis read right lowerquadrant pain. Pt was instructed to f/u with PCP and stop taking CIPRO that she was taking for kidneyinfection. Pt has stopped this medication but was unable to follow up with PCP due to holiday. Ptstates she started having worsening pain last night to right flank/back area that wraps around to right side;Pt states some dizzy spells at times and decreased appetite.). She has had nausea. She has hadvomiting (twice today). She has had diarrhea (twice today).SEPSIS SCREEN: SIRS Screen: heart rate greater than 90. (19:09 06/21/2020). --19:10 06/21/20 Nasreen Wells R.N.19:06 06/21/20. BP: 143/87. MAP: 105. HR: 112. RR: 18. O2 saturation: 99% on room air. Temp: 98.6 F(temporal). Pain level now: 03/24. --19:10 06/21/20 Nasreen Wells R.N.Weight: 86.1 kg stated. Height/Length: 66 inches Per Patient. BMI: 30.7. --19:02 06/21/20 Nasreen Wells R.N.MedicationsAbilify Oral. Cipro Oral 500 mg, 2x a day, x 10 days. Zoloft Oral. --22:22 06/21/20 Rashmi Hodges R.N.AllergiesNone. --22:22 06/21/20 Rashmi Hodges R.N.Medication/allergy information source: the patient. --19:10 06/21/20 Nasreen Wells R.N.HistoryPAST MEDICAL HX: Immunizations: up-to-date. Last normal menstrual period- Pt has nexplanon; has nothad LMP in a few months. Uses depo implants.SOCIAL HX: Never smoker. No alcohol use or drug use. No recent travel. No known contact with a sickindividual. She was offered HIV testing but declined. Patient education was provided. She was offered 2 Clinical Report - Nurses [facility]. [facility] Emergency Department [address] [place] [address] Phone #: ext- [phone] 06/21/2020 19:02 Patient: SCARLET SOLOMON Sex: F : 2000 Age: 20y hepatitis C testing but declined. Patient education was provided. ( COVID screen negative). She has not traveled outside the [place] Infectious disease exposure: No infectious disease exposure. Patient is not a known carrier of tuberculosis, hepatitis, HIV, MRSA or VRE. Patient is not a known carrier of CRE. SELF HARM ASSESSMENT: Self harm assessment was performed. The patient answered "no" to the question(s) "Do you have thoughts of harming or killing yourself?" and "Do you have a plan for harming or killing yourself?". ABUSE ASSESSMENT: Abuse assessment. The patient had positive responses to the question(s) "Do you feel safe in your home?". Abuse denied. No suspicion of abuse. No report of abuse. NUTRITIONAL RISK ASSESSMENT: The nutritional risk assessment revealed no deficiencies. FUNCTIONAL ASSESSMENT: Functional assessment: no impairments noted. LEARNING NEEDS ASSESSMENT: The learning needs assessment revealed no barriers. FALL RISK ASSESSMENT: Fall risk assessment completed. No risk factors identified. SKIN INTEGRITY ASSESSMENT: Skin integrity risk assessment completed. No skin integrity risk identified. --19:10 06/21/20 Nasreen Wells R.N. FAMILY HX: No significant family medical history. --19:31 06/21/20 Behzad Gomes. Interventions Identification band on patient. --19:10 06/21/20 Nasreen Wells R.N.PHYSICAL ASSESSMENTAmbulatory to room.GENERAL / NEURO / PSYCH: Alert. Oriented X 4. Appears in pain.HEENT: Mucous membranes are pink.RESPIRATORY: Respirations not labored. Breath sounds within normal limits.CVS: Capillary refill less than 2 seconds.GI / : The patient has had nausea. Emesis noted. (please see triage note). She has diarrhea (pleasesee triage note). Abdominal tenderness in the right side of the abdomen, periumbilical area and rightlower quadrant. Guarding present. No rebound tenderness. Bowel sounds within normal limits. CVAtenderness on the right.SKIN: Skin is warm and dry. --19:14 06/21/20 Nasreen Wells R.N.NURSING PROGRESS NOTESPatient gowned. Reassurance given. Three patient identifiers checked. Call light placed in reach. Siderails up x 2. Bed placed in lowest position. Brakes of bed on. Patient ready for evaluation- ED physicianazael SOLO notified. --19:06/21/20 Nasreen Wells R.N. 3 Clinical Report - Nurses [facility] Emergency Department [address] [place] [address] Phone #: ext- [phone] 06/21/2020 19:02 Patient: SCARLET SOLOMON Sex: F : 2000 Age: 20y Patient ID band checked for patient name and birthdate: patient confirmed. Instructions provided to collect clean catch urine and patient verbalized understanding. Clean catch urine collected; sample sent to lab for urinalysis. Specimen labeled in the presence of the patient. --19:06/21/20 Nasreen Wells R.N. ( Pt had some foul smelling soft stool, not liquid, sent for GI4). --19:06/21/20 Nasreen Wells R.N. 19:25 06/21/2020 Site #1 started via IV in the right antecubital space with an 20g angiocath, with aseptic technique and good blood return; one attempt. Blood drawn: rainbow set. Labeled in the presence of the patient and sent to the lab. Saline lock flushed with 10 mL saline. --:06/21/20 Nasreen Wells R.N. 19:29 06/21/20. HR: 103. O2 saturation: 99%. --19:06/21/20 Mineral, Nasreen, R.N. Care transferred and report given (Beth Roach RN). --19:29 06/21/20 Nasreen Wells R.N. 20:00 06/21/20. ( pt d/c from fluids to ambulate to bathroom and back to room independantly.). --21:13 06/21/20 Rashmi Hodges R.N. 20:41 06/21/2020 Started bag #1 1000 mL IV Fluids IV NS w/ bolus; at 1000 mL/hr via site #1 via IV pump. Allergies verified and confirmed 5 rights. IV patency established. IV site checked: no pain, redness, or swelling. IV flushed thoroughly pre- and post-medication administration. Information reviewed with patient including reason for taking this medication. Verbalizes understanding. --20:42 06/21/20 Rashmi Hodges R.N. ( pt requested pain/nausea medicine. provider aware. awaiting orders at this time. Pt in no obvious distress. respirations are easy and unlabored. pt texting on phone and resting in side lying position.). --21:12 06/21/20 Rashmi Hodges R.N. 21:29 06/21/2020 Bentyl (Dicyclomine HCl) PO Capsules 10 mg given. Allergies verified and confirmed 5 rights. Information reviewed with patient including reason for taking this medication. Verbalizes understanding. --21:29 06/21/20 Rashmi Hodges R.N. The patient reports no complaints and she is resting quietly. --22:04 06/21/20 Rashmi Hodges R.N. 22:00 06/21/2020 Site #1 removed upon discharge. Bandaid applied. --22:23 06/21/20 Rashmi Hodges R.N. 22:00 06/21/2020 IV Fluids IV NS w/ bolus via IV site #1 Discontinued: completed upon discharge. Total amount infused: 1000 mL. IV patency established. IV site checked: no pain, redness, or swelling. IV flushed thoroughly. --22:23 06/21/20 Rashmi Hodges R.N.DISPOSITION / DISCHARGE Departure time: 22:04 06/21/2020. Condition at departure: stable. No learning barriers present. Discharge instructions provided and reviewed with the patient. Reviewed medication(s). Reviewed diet. 4 Clinical Report - Nurses [facility] Emergency Department [address] [place] [address] Phone #: ext- [phone] 06/21/2020 19:02 Patient: SCARLET SOLOMON Sex: F : 2000 Age: 20y Follow up contact number. The patient was discharged by the physician family practice physician assistant. She was discharged home and unaccompanied at time of discharge. She left ambulatory and via private vehicle. Patient driving. ( pt given work note.). Medication list reviewed and validated. --22:21 06/21/20 Rashmi Hodges R.N. 22:04 06/21/20. BP: deferred. HR: 78. RR: 18. O2 saturation: 99% on room air. Temp: 97.6 F (tympanic). Pain level now: 0/10. Additional comments: pt declined BP, cuff blew up more than 1x. --22:21 06/21/20 Rashmi Hodges R.N.Locked/Released at 06/21/2020 22:23 by Rashmi Hodges R.N. Name Value Range Interpretation Code Description Data Shira rce(s) Supporting Document(s) ID Date Data Source [id number] 06/21/2020 07:16:[address] [facility] 1 Clinical Report - Physicians/Mid Levels [facility] Emergency Department [address] [place] [address] Phone #: ext- [phone] 06/21/2020 19:02 Patient: SCARLET SOLOMON Sex: F : 2000 Age: 20y Arrived- By private vehicle. Historian- patient.HISTORY OF PRESENT ILLNESS Chief Complaint: ABDOMINAL PAIN and FLANK PAIN. It is described as "pain", sharp and stabbing and it is described as located in the right flank and the right side of the back, right abdomen and right lower quadrant. This started 1 weeks ago and is still present. At its maximum, severity described as 8 / 10. When seen in the E.D., severity described as 8 / 10. The patient has had diarrhea. Similar symptoms previously. Patient has had similar symptoms several times. Recent medical care: The patient was seen recently at this facility in the emergency department.PAST HISTORYPast history not negative. See nurses notes. No history of peptic ulcer. No history of gallstones, bowelobstruction, heart disease, lung disease or renal disease. No history of hypertension, ke rologicaldisease, GI disease, other disease or diabetes mellitus. Has not had urinary calculi.SOCIAL HISTORYNever smoker.FAMILY HISTORYNo significant family medical history.ADDITIONAL NOTESThe nursing notes have been reviewed.PHYSICAL EXAMAppearance: Alert. Oriented X3. Patient in mild distress.Eyes: Pupils equal, round and reactive to light. Eyes normal inspection.ENT: Ears normal. Nose normal. Pharynx normal.Neck: Normal inspection. Neck supple.CVS: Normal heart rate. Heart sounds normal. Pulses normal.Respiratory: No respiratory distress. Breath sounds normal. Chest nontender.Abdomen: Soft. Moderate tenderness in the right side of the abdomen and right lower quadrant withguarding present. Guarding present. Bowel sounds normal. No organomegaly. No mass. (Psoassign right side.).Back: Normal inspection.Skin: Skin warm and dry. Normal skin color. Normal skin turgor.Extremities: Extremities exhibit normal ROM. No lower extremity edema.Neuro: Oriented X 3. No motor deficit. No sensory deficit. 2 Clinical Report - Physicians/Mid Levels [facility] Emergency Department [address] [place] [address] Phone #: ext- [phone] 06/21/2020 19:02 Patient: SCARLET SOLOMON Sex: F : 2000 Age: 20yCLINICAL IMPRESSION Acute right lower quadrant abdominal pain. Acute hives secondary to unknown cause. Acute mesenteric lymphadenitisINSTRUCTIONS Drink plenty of fluids. Take clear liquids only. (Patient to follow up with primary medical doctor for possible referral to urologist and or rn er. Patient to take bentyl as directed. Patient to inform primary medical doctor of diagnosis of mesenteric adenitis. Patient advised to stop antibiotic until c-diff test comes back.). Prescription Medications: dicyclomine 20 mg tablet Take 1 tablet four times a day -- Dispense 20 tablet. Refills: 0. Substitution permitted. Pharmacy - [facility] [id number] ; [place] [address]. . Follow-up: Return to the emergency department if not better. Understanding of the discharge instructions verbalized by patient. Follow-up with: Follow up Tuesday. Call for an appointment. Reason for referral: evaluation and treatment.(Electronically signed by Behzad Gomes, 06/22/2020 11:46) Name Value Range Interpretation Code Description Data Shira rce(s) Supporting Document(s) ID Date Data Source [id number] 06/21/2020 08:04:00 PM [facility] Name Value Range Interpretation Code Description Data Shira rce(s) Supporting Document(s) Lipase [Enzymatic activity/volume] in Serum or Plasma 36 U/L 13 - 60 [facility] ID Date Data Source [id number] 06/21/2020 08:03:00 PM [facility] Name Value Range Interpretation Code Description Data [facility] rce(s) Supporting Document(s) COMPREHENSIVE METABOLIC PANEL [facility] COMPREHENSIVE METABOLIC PANEL Sodium [Moles/volume] in Serum or Plasma 135 mEq/L 134 - 153 [facility] Potassium [Moles/volume] in Serum or Plasma 3.7 mEq/L 3.6 - 5.0 [facility] Chloride [Moles/volume] in Serum or Plasma 98 mEq/L 98 - 107 [facility] Carbon dioxide, total [Moles/volume] in Serum or Plasma 28 MEQ/L 22 - 30 [facility] Glucose [Mass/volume] in Serum or Plasma 105 MG/DL 65 - 110 [facility] BUN 13 MG/DL 7 - 21 [facility] Creatinine [Mass/volume] in Serum or Plasma 0.7 MG/DL 0.7 - 1.5 [facility] BUN/CREAT 19 8 - 27 [facility] al Protein [Mass/volume] in Serum or Plasma 7.9 G/DL 6.3 - 8.2 [facility] Albumin [Mass/volume] in Serum or Plasma 4.6 G/DL 3.9 - 5.0 [facility] Globulin [Mass/volume] in Serum by calculation 3.3 GM/DL 2.4 - 3.[address] [facility] A/G RATIO 1.4 0.8 - 2.0 [facility] Calcium [Mass/volume] in Serum or Plasma 9.4 MG/DL 8.4 - 10.2 [facility] Bilirubin.total [Mass/volume] in Serum or Plasma <0.7 MG/DL 0.2 - 1.3 [facility] Alkaline phosphatase [Enzymatic activity/volume] in Serum or Plasma 94 U/L 38 - 126 [facility] Aspartate aminotransferase [Enzymatic activity/volume] in Serum or Plasma 25 U/L 5 - 40 [facility] Alanine aminotransferase [Enzymatic activity/volume] in Seru m or Plasma 24 U/L 7 - 56 [facility] Anion gap 3 in Serum or Plasma 9.0 mmol/L 8.0 - 16.0 [facility] AGE 20 yrs [facility] al NON-AA GFR >60 mL/min [facility] ital AFR AMER GFR >60 mL/min [facility] Male GFR In terprentation 20-49 yrs >60 mL/min Normal 50-59 yrs >56 mL/min Normal 60-69 yrs >49 mL/min Normal 70-79yrs >42 mL/min Normal 80 and above >35 mL/min Normal Female GFR Interpretation 20-39 yrs >60 mL/min Normal 40-49 yrs >58 mL/min Normal 50-59 yrs >51 mL/min Normal 60-69 yrs >45 mL/min Normal 70-79 yrs >39 mL/min Normal 80 and above >32 mL/min Normal ID Date Data Source [id number] 06/21/2020 07:58:[address] [facility] Name Value Range Interpretation Code Description Data Shira rce(s) Supporting Document(s) HCG SERUM QUAL NEGATIVE NORMAL: NEGATIVE [facility] HCG SERUM QL REENTER NEGATIVE NORMAL: NEGATIVE [facility] { KIT LOT # [id number] ){ KIT EXP DATE 05-20-21 ){ PROCEDURAL CONTROL VALID ) ID Date Data Source [id number] 06/21/2020 07:48:[address] [facility] Name Value Range Interpretation Code Description Data Shira rce(s) Supporting Document(s) CBC W/AUTOMATED DIFF [facility] COMPLETE BLOOD COUNT Leukocytes [#/volume] in Blood by Automated count 11.6 10^3/uL 4.2 - 11.[address] [facility] Erythrocytes [#/volume] in Blood by Automated count 4.68 10^6/uL 4. 20 - 5.40 [facility] Hemoglobin [Mass/volume] in Blood 14.0 g/dL 12.0 - 16.0 [facility] Hematocrit [Volume Fraction] of Blood by Automated count 41.2 % 3 7.0 - 47.0 [facility] Erythrocyte mean corpuscular volume [Entitic volume] by Auto mated count 88.0 fL 81.0 - 101 [facility] Erythrocyte mean corpuscular hemoglobin [Entitic mass] by Automated count 29.9 pg 27.0 - 34.0 [facility] Erythrocyte mean corpuscular hemoglobin concentration [Mass/volume] by Automated count 34.0 g/dL 31.0 - 36.0 [facility] Erythrocyte distribution width [Ratio] by Automated count 11.4 % 11.5 - 14.[address] [facility] Platelets [#/volume] in Blood by Automated count 387 10^3/uL 150 - [address] [facility] Platelet mean volume [Entitic volume] in Blood by Automated count 8.7 fL 7.4 - 10.4 [facility] Neutrophils/100 leukocytes in Blood by Automated count 67.9 % 37. 0 - 80.0 [facility] Lymphocytes/100 leukocytes in Blood by Manual count 23.3 % 25.0 - 40.[address] [facility] Monocytes/100 leukocytes in Blood by Automated count 7.3 % 3.0 - 8.0 [facility] Eosinophils/100 leukocytes in Blood by Automated count 0.8 % 0.0 - 7.0 [facility] Basophils/100 leukocytes in Blood by Automated count 0.3 % 0.0 - 2.5 [facility] %IG 0.4 % 0.0 - 0.0 H [facility] al %NRBC 0.0 % 0.0 - 0.0 [facility] al Neutrophils [#/volume] in Blood by Automated count 7.87 10^3/uL 2.00 - 6.[address] [facility] Lymphocytes [#/volume] in Blood by Automated count 2.71 10^3/uL 0.60 - 3.40 [facility] Monocytes [#/volume] in Blood by Automated count 0.85 10^3/uL 0.00 - 0.90 [facility] Eosinophils [#/volume] in Blood by Automated count 0.09 10^3/uL 0.00 - 0.70 [facility] Basophils [#/volume] in Blood by Automated count 0.04 10^3/uL 0.00 - 0.20 [facility] #IG 0.05 10^3/uL 0.00 - 0.10 [facility] #NRBC 0.00 10^3/uL 0.00 - 0.00 [facility] MANUAL DIFF NOT INDICATED [facility] RBC MORPH NOT INDICATED [facility] ID Date Data Source [id number] 06/21/2020 07:47:[address] [facility] Name Value Range Interpretation Code Description Data Shira rce(s) Supporting Document(s) URINALYSIS [facility] yulia UR[facility] yellow NORMAL: Yellow [facility] CLARITY clear NORMAL: Clear [facility] Specific gravity of Urine by Test strip 1.015 1.001 - 1.030 [facility] pH 7 5 - 9 [facility] Glucose [Mass/volume] in Urine by Test strip NORM NORMAL: Negat [facility] Bilirubin.total [Presence] in Urine by Test strip NEG NORMAL: Negative [facility] Ketones [Presence] in Urine by Test strip NEG NORMAL: Negative [facility] Protein [Mass/volume] in Urine by Test strip NEG NORMAL: Negat [facility] Nitrite [Presence] in Urine by Test strip NEG NORMAL: Negative [facility] BLOOD 10 NORMAL: Negative [facility] Leukocyte esterase [Presence] in Urine by Test strip NEG MAURIZIO L: Negative [facility] Urobilinogen [Mass/volume] in Urine by Test strip 1 less rocky n 1.0 mg/dL [facility] MICROSCOPIC See Below [facility] ital WBC None Seen NORMAL: NONE SEEN [facility] Erythrocytes [#/volume] in Urine by Test strip None Seen NORMAL: NON E SEEN [facility] EPITHELIAL MODERATE NORMAL: NONE SEEN [facility] Bacteria [Presence] in Urine sediment by Light microscopy No ne Seen NORMAL: NONE SEEN [facility] Mucus [Presence] in Urine sediment by Light microscopy None Seen NORMAL: NONE SEEN [facility] Amorphous sediment [Presence] in Urine sediment by Light froilan roscopy RARE NORMAL: NONE SEEN [facility] ID Date Data Source [id number] 06/20/2020 10:34:00 AM [facility] [address] [place] [address] PHONE: [phone] FAX: [phone] Name .................. : JUANITO NOVAK Bairon Acct Number.................. : [id number] ROOM. ................. : TR-1A MR Number ................... : [id number] Stay type ............. : E/R Discharge Date......... ... : 06/19/20 Admit Date ......... : 06/19/20 Admit Phys .................... : COONEYNORM Date of ....... : 2000 Family Phys ................... : UNKNOWN CO Phone .................. : [phone] Age ................................ : 20 Film# .................. .:[id number] Sex ................................. : F Unsigned transcriptions are preliminary reports and do not represent a medical or legal document CT ABD & PELVIS W/ IV ONLY [id number] COMPLETE:06/19/20 18:06 ELVA [id number] Reason(s): A bdominal Pain CT OF THE ABDOMEN AND PELVIS WITH CONTRAST: HISTORY: Abdominal pain, rule out appendicitis. COMPARISON: None. FINDINGS: Lung bases: Clear. Liver: Normal contour. No mass. Biliary system: Status post cholecystectomy. No biliary dilatation. Pancreas: Normal. Spleen: Normal. Adrenal glands: Normal. Kidneys: Symmetric enhancement and normal contour. 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 No stones. Urinary bladder: Normal. Pelvic organs: Unremarkable for age. Bowel: Normal caliber. No wall thickening or edema. Nor mal appendix. Peritoneum. No free air or ascites. Lymph nodes: No adenopathy. Page 1 of 2 [facility] [address] [place] [address] PHONE: [phone] FAX: [phone] Name .................. : JUANITO Waddell Acct Number.................. : [id number] ROOM. ................. : TR-1A MR Number ................... : [id number] Stay type ............. : E/R Discharge Date......... ... : 06/19/20 Admit Date ......... : 06/19/20 Admit Phys .................... : COONEYNORM Date of ....... : 2000 Family Phys ................... : UNKNOWN CO Phone .................. : [phone] Age ................................ : 20 Film# .................. .:[id number] Sex ................................. : F Unsigned transcriptions are preliminary reports and do not represent a medical or legal document CT ABD & PELVIS W/ IV ONLY [id number] COMPLETE:06/19/20 18:06 ELVA 33418 Reason(s): Abdominal Pain Vessels. Normal abdominal aorta and inferior vena cava. Abdominal wall: No hernia. Bones: No acute findings. IMPRESSION: No acute abnormality in the abdomen or pelvis. Normal appendix. Status post cholecystectomy. While performing the above CT examination, radiation dose reduction was accomplished utilizing automated exposure control, adjusting of the mA and kV based on the patient's body size and/or the use of imperative reconstructive techniques. CT dose: 1142.2 mGycm Contrast agent in mL: 75 Isovue 370 Method of administration: Intravenous Electronically Reviewed and Signed By Stephen Hylton MD , 06/20/20 10:34, [facility] Transcribe Initials: BENJAMIN , Transcribe Date: 06/19/20 23:06, Dictation Date: Copy for: ZOLTAN DINH via fax Copy for: EMERGENCY DEPT via modem Copy for: 710 MED REC DISCHARGED Page 2 of 2 Name Value Range Interpretation Code Description Data Shira rce(s) Supporting Document(s) ID Date Data Source [id number] 06/20/2020 10:30:00 AM EST [facility] [address] [place] [address] PHONE: [phone] FAX: [phone] Name .................. : JUANITO Waddell Acct Number.................. : [id number] ROOM. ................. : [facility] MR Number ................... : [id number] Stay type ............. : E/R Discharge Date......... ... : 06/19/20 Admit Date ......... : 06/19/20 Admit Phys .................... : COONEYNORM Date of ....... : 2000 Family Phys ................... : UNKNOWN CO Phone .................. : [phone] Age ................................ : 20 Film# .................. .:[id number] Sex ................................. : F Unsigned transcriptions are preliminary reports and do not represent a medical or legal document US TRANSVAGINAL(NON OB) [id number] COMPLETE:06/19/20 16:03 KNB [id number] (REASON FOR OBS: RLQ Pain TRANSVAGINAL PELVIC ULTRASOUND: HISTORY: Right lower quadrant pain. FINDINGS: The uterus measures 5.5 x 2.2 x 3.8 cm. Endometrial echocomplex measures 2.5 mm. The right ovary measures 2.5 x 1.9 x 2.7 cm. The left ovary measures 2.7 x 2.2 x 2.4 cm. No signs of any free fluid or any other significant findings. No adnexal masses. Small follicles in each ovary. IMPRESSION: No acute abnormalities noted. Electronically Reviewed and Signed By CONNOR MCALLISTER MD , 06/20/20 10:30, [facility] Transcribe Initials: BENJAMIN , Transcribe Date: 06/19/20 22:56, Dictation Date: Copy for: EMERGENCY DEPT [place] Copy for: 710 MED REC DISCHARGED Page 1 of 1 Name Value Range Interpretation Code Description Data Shira rce(s) Supporting Document(s) ID Date Data Source [id number] 06/20/2020 10:29:00 AM EST [facility] [address] [place] [address] PHONE: [phone] FAX: [phone] Name .................. : JUANITO Waddell Acct Number.................. : [id number] ROOM. ................. : TR-1A MR Number ................... : [id number] Stay type ............. : E/R Discharge Date......... ... : 06/19/20 Admit Date ......... : 06/19/20 Admit Phys .................... : COONEYNORM Date of ....... : 2000 Family Phys ................... : UNKNOWN CO Phone .................. : [phone] Age ................................ : 20 Film# .................. .:[id number] Sex ................................. : F Unsigned transcriptions are preliminary reports and do not represent a medical or legal document ABD LIMITED [id number] COMPLETE:06/19/20 16:03 [facility] [address]19 Reason(s): RLQ PAIN RIGHT LOWER QUADRANT ULTRASOUND: FINDINGS: The appendix is not visualized. There are 3 nodes identified in the right lower quadrant. One measures 1.5 x 1.3 mm. The other measures 1 cm x 9 mm. Another one measures 8 mm x 7 mm. No other significant findings otherwise identified. IMPRESSION: Appendix not visualized. Three nodes in the right lower quadrant noted, the largest is about 1.5 cm. Electronically Reviewed and Signed By CONNOR MCALLISTER MD , 06/20/20 10:29, [facility] Transcribe Initials: BENJAMIN , Transcribe Date: 06/19/20 19:55, Dictation Date: Copy for: ZOLTAN DINH via fax Copy for: EMERGENCY DEPT [place] [facility] Copy for: 710 MED REC DISCHARGED Page 1 of 1 Name Value Range Interpretation Code Description Data Shira rce(s) Supporting Document(s) ID Date Data Source [id number] 06/20/2020 10:29:00 AM EST [facility] [address] [place] [place] [address] PHONE: [phone] FAX: [phone] Name .................. : JUANITO Waddell Acct Number.................. : [id number] ROOM. ................. : -1A MR Number ................... : [id number] Stay type ............. : E/R Discharge Date......... ... : 06/19/20 Admit Date ......... : 06/19/20 Admit Phys .................... : COONEYNORM Date of ....... : 2000 Family Phys ................... : UNKNOWN CO Phone .................. : [phone] Age ................................ : 20 Film# .................. .:[id number] Sex ................................. : F Unsigned transcriptions are preliminary reports and do not represent a medical or legal document PELVIC [id number] COMPLETE:06/19/20 16:03 [facility] [id number] Reason(s): Pelvic Pain PELVIC ULTRASOUND: HISTORY: Pelvic pain. FINDINGS: The uterus measures 5.9 x 2.7 x 4.4 cm. The right ovary measures 2.3 x 1.9 x 1.9 cm. The left ovary is not visualized. The endometrial echocomplex is poorly visualized. The bladder appears normal. No free fluid noted. IMPRESSION: Left ovary not visualized. No acute disease identified. Electronically Reviewed and Signed By CONNOR MCALLISTER MD , 06/20/20 10:29, M Transcribe Initials: DZ , Transcribe Date: 06/19/20 19:25, Dictation Date: Copy for: ZOLTAN DINH via fax Copy for: EMERGENCY DEPT via modem Copy for: 710 MED REC DISCHARGED Page 1 of 1 Name Value Range Interpretation Code Description Data Shira rce(s) Supporting Document(s) ID Date Data Source [id number] 06/20/2020 10:28:00 AM EST [facility] [address] [place] [address] PHONE: [phone] FAX: [phone] Name .................. : JUANITO Waddell Acct Number.................. : [id number] ROOM. ................. : TR-1A MR Number ................... : [id number] Stay type ............. : E/R Discharge Date......... ... : Admit Date ......... : 06/19/20 Admit Phys .................... : COONEYNORM Date of ....... : 2000 Family Phys ................... : UNKNOWN CO Phone .................. : [phone] Age ................................ : 20 Film# .................. .:[id number] Sex ................................. : F Unsigned transcriptions are preliminary reports and do not represent a medical or legal document RENAL [id number] COMPLETE:06/19/20 16:03 [facility] [address] Reason(s): Renal Colic/Flank BILATERAL RENAL ULTRASOUND: HISTORY: Renal colic and flank pain. FINDINGS: The right kidney measures 1.1 cm. The left kidney measures 11.4 cm. No hydronephrosis noted. Bilateral ureteral jets noted in the bladder. Cortical echotexture appears normal. No renal calculi noted. IMPRESSION: Unremarkable bilateral renal ultrasound. Electronically Reviewed and Signed By CONNOR MCALLISTER MD , 06/20/20 10:28, [facility] Transcribe Initials: BENJAMIN , Transcribe Date: 06/19/20 17:48, Dictation Date: Copy for: ZOLTAN DINH via fax Copy for: EMERGENCY DEPT via modem Copy for: 710 MED REC DISCHARGED Page 1 of 1 Name Value Range Interpretation Code Description Data Shira rce(s) Supporting Document(s) ID Date Data Source [id number] 06/19/2020 02:47:[address] [facility] [address] [facility] Emergency Department [address] [place] [address] Phone #: ext- [phone] 06/19/2020 14:37 Patient: SCARLET SOLOMON Sex: F : 2000 Age: 20yWEIGHT:86.1 kg (S) HEIGHT:66 inches (S) BMI:30.7ALLERGIES: NoneCHIEF COMPLAINT: vomiting, diarrhea, abdominal pain, nauseaDIAGNOSIS: Abdominal painLAB ORDERSOrder Description Priority Entered Acknowledged InitialedCBC w Diff STAT 15:02 06/19/2020 15:03 Jesse Wells R.N.;CMP STAT 15:02 06/19/2020 15:03 Jesse Wells R.N. PA;Lipase STAT 15:02 06/19/2020 15:03 Jesse Wells R.N.;Urinalysis (Clean STAT 15:02 06/19/2020 15:03 Russell,Catch) Jesse SOLO;Lactic Acid STAT 15:02 06/19/2020 15:03 Jesse Wells R.N.;GI 4 Panel 15:02 06/19/2020 Ack'd: 15:03 Nasreen Wells R.N. Cancelled: Patient Refusal 18:18 EDIL Eddy; Karma BallDIAGNOSTIC STUDY ORDERSOrder Description Priority Entered Acknowledged InitialedUS Pelvis STAT 15:02 06/19/2020 Ack'd: 15:03 15:36 Russell,(Oxygen?(No)) Nasreen Marie R.N.; R.N. Reason for Study: Pelvic PainUS Renal STAT 15:02 06/19/2020 Ack'd: 15:03 15:36 Russell,(Oxygen?(No)) Nasreen Marie R.N. PA; R.N. Reason for Study: Renal Colic/Flank [address] [facility] Emergency Department [address] [place] [address] Phone #: [phone] ext- [phone] 06/19/2020 14:37 Patient: SCARLET SOLOMON Sex: F : 2000 Age: 20yUS Abdomen STAT 15:02 06/19/2020 Ack'd: 15:03 15:36 Russell,Limited Nasreen Marie R.N.(Oxygen?(No)) PA; R.NElder NOTES: Appy? Reason for Study: RLQ PAINCT Abd PEL W/ IV STAT 17:11 06/19/2020 Ack'd: 17:12 17:18 Mineral,Contrast Only Nasreen Marie R.N.(Oxygen?(No)) PA; RElderNElder(IV?(Yes)) NOTES: Rule out appy Reason for Study: Abdominal PainMEDICATION/IV/DRIP/FLUID ORDERSOrder Description Priority Entered Acknowledged InitialedNS IV : Bolus 1000 15:02 06/19/2020 Ack'd: 15:03 15:10 Russell,mL, then 150 mL/hr Nasreen Marie R.N. PA; R.N.Zofran IVP 8 mg 15:02 06/19/2020 Ack'd: 15:03 15:11 Jesse Wells Jennifer Jennifer R.N. PA; R.N.Morphine IVP 4 mg 15:02 06/19/2020 Ack'd: 15:03 15:11 Russell,(HIGH ALERT Nasreen Marie R.N.MEDICATION) PA; R.N.GENERAL ORDERSOrder Description Priority Entered Acknowledged InitialedNPO 15:02 06/19/2020 15:03 Jesse Wells R.N.;Saline Lock 15:02 06/19/2020 15:03 Jesse Wells R.N. PA;[Electronically signed by Karma Eddy R.N. (18:18 06/19/2020)][Electronically signed by Jesse Wilcox (21:42 06/19/2020)][Electronically locked by Karma Eddy R.N. (18:18 06/19/2020)] Name Value Range Interpretation Code Description Data Shira rce(s) Supporting Document(s) ID Date Data Source [id number] 06/19/2020 02:47:[address] [facility] [address] [facility] Emergency Department [address] [place] [address] Phone #: ext- [phone] 06/19/2020 14:37 Patient: SCARLET SOLOMON Sex: F : 2000 Age: 20yWeight: 86.1 kgHeight/Length: 66 in.BMI: 30.7ALLERGIES: NoneThe patient's Home Medications are listed below:CONTINUE TAKING THE FOLLOWING MEDICATIONS: Abilify Oral Cipro Oral 500 mg, 2x a day, x 10 days Zoloft OralThe source(s) of the original Home Medication information:Not obtained.The following Medications were given to the patient in the Emergency Department:NS [IV] IV Fluids bolus 1000 mL wide open, administered: 06/19/2020 3:07:00 PMZofran [IVP] IVP 8 mg, administered: 06/19/2020 3:07:00 PMMorphine [IVP] IVP 4 mg diluted in NS 10 mL, administered: 06/19/2020 3:11:00 PMThe following Medications were prescribed to the patient:None. Name Value Range Interpretation Code Description Data Shira rce(s) Supporting Document(s) ID Date Data Source [id number] 06/19/2020 02:47:[address] [facility] [address] [facility] Emergency Department [address] [place] [address] Phone #: ext- [phone] 06/19/2020 14:37 Patient: SCARLET SOLOMON Sex: F : 2000 Age: 20yWeight: 86.1 kgHeight/Length: 66 inBMI: 30.7ALLERGIES: None Date/Time Medication Administered Medication OrderedStart NS [IV] NS IV : Bolus 1000 mL, then 24114:07 06/19/2020 Dose: IV Fluids mL/hrPNasreen carter R.N. Bolus: 1000 mL wide open---- Dispensed: 1000 mL bagStop Site: #1 right AC18:16 06/19/2020Karma Eddy R.N.Given ZOFRAN [IVP] (ONDANSETRON HCL) Zofran IVP 8 mg15:07 06/19/2020 Dose: 8 mg IVPPNasreen carter R.N. Site: #1 right ACGiven MORPHINE [IVP] Morphine IVP 4 mg (HIGH ALERT15:11 06/19/2020 Dose: 4 mg IVP MEDICATION)Nasreen Wells R.N. In: NS 10 mL Site: #1 right AC Name Value Range Interpretation Code Description Data Shira rce(s) Supporting Document(s) ID Date Data Source [id number] 06/19/2020 02:47:[address] [facility] [address] [facility] Emergency Department [address] [place] [address] Phone #: ext- [phone] 06/19/2020 14:37 Patient: SCARLET SOLOMON Sex: F : 2000 Age: 20yAcute right lower quadrant abdominal pain.INSTRUCTIONSDrink plenty of fluids.(Continue taking Zofran as needed and you can Try Imodium available over the counter.).Warnings: Further evaluation is necessary. It is very important to follow up with a healthcare provider.Your Current Medications: Your current home medications have been reviewed.CONTINUE TAKING THE FOLLOWING MEDICATIONS:Abilify Oral.Cipro Oral : 500 mg 2x a day, x 10 days.Zoloft Oral.Follow-up:Follow up with your doctor Tuesday even if well. Reason for referral: evaluation and treatment. Summary ofcare provided to patient.Understanding of the discharge instructions verbalized by patient. ADDITIONAL INFORMATIONAbdominal Pain, Possible Appendicitis, Repeat Exam (Female) [address] [facility] Emergency Department [address] [place] [address] Phone #: ext- [phone] 06/19/2020 14:37 Patient: SCARLET SOLOMON Sex: F : 2000 Age: 20yBased on your visit today, the exact cause of your abdominal (stomach) pain is not certain. You havesome of the early symptoms of appendicitis. Because these symptoms can be similar to otherstomach problems, however, the diagnosis cannot be made at this time.Waiting for more time to pass and repeating the exam is the best way to find out whether you haveappendicitis. Within the next 12 to 24 hours, the cause of your stomach pain should become clear.During this time, you need to watch for any new symptoms or worsening of your condition (seebelow).SymptomsThe most common symptom of appendicitis is pain in the abdomen. Since the appendix is in thelower right part of the abdomen, that is the most common place to have pain. Typically, the pain startsnear the navel (belly button) and then moves lower and to the right over hours. The pain also tends toworsen over time. It may hurt especially when moving, straining, or coughing.Other symptoms include: Loss of appetite Nausea, vomiting Low-grade fever Constipation or diarrhea Not passing gas [address] [facility] Emergency Department [address] [place] [address] Phone #: ext- [phone] 06/19/2020 14:37 Patient: SCARLET SOLOMON Sex: F : 2000 Age: 20yHome care Rest until your next exam. No lifting, straining, or strenuous activities. You may be told not to eat or drink anything before your next exam. Be sure to follow any instructions you're given. If you are allowed to eat: o Eat a diet low in fiber (called a low-residue diet). Foods allowed include refined breads, white rice, fruit and vegetable juices without pulp, and tender meats. These foods will pass more easily through the colon. o Avoid whole-grain foods, whole fruits and vegetables, meats, seeds and nuts, fried or fatty foods, dairy, and alcohol and spicy foods.Follow-up careReturn for your next exam as directed.When to seek medical adviceCall your healthcare provider or seek treatment right away if: You have a fever of 100.4F (38C) or higher, or as directed by your provider. Your pain gets worse or moves to the lower right part of your abdomen. You have nausea or vomiting that worsens. You have diarrhea or constipation that worsens. You have blood in your vomit or stool (dark red or black color). Your abdomen becomes swollen. You become weak or dizzy. You think you might be or have unexpected vaginal bleeding.Call [phone] right away if: You have trouble breathing. You become very confused or sleepy. You feel faint or lose consciousness. You have an usually fast heart rate. [address] [facility] Emergency Department [address] [place] [address] Phone #: ext- [phone] 06/19/2020 14:37 Patient: SCARLET SOLOMON Sex: F : 2000 Age: 20y [id number] [employer]. [address] [place] [address], [place] [address]. All rights reserved. This information is not intended as asubstitute for professional medical care. Always follow your healthcare professional's instructions. You have been given the following additional information: Abdominal Pain, Possible Appendicitis, Repeat Exam (Female)(Rola ctronically signed by EDIL Moreno 06/19/2020 21:42) Name Value Range Interpretation Code Description Data Shira rce(s) Supporting Document(s) ID Date Data Source [id number] 06/19/2020 02:47:[address] [facility] 1 Clinical Report - Nurses [facility] Emergency Department [address] [place] [address] Phone #: ext- [phone] 06/19/2020 14:37 Patient: SCARLET SOLOMON Sex: F : 2000 Age: 20yTRIAGE( started with loose stool seen here 2 or 3 days ago dx with kidney infection, sent home on antibiotics andnow has not been eating, n and v).Acuity: LEVEL 3.Chief Complaint: ABDOMINAL PAIN, NAUSEA, VOMITING and DIARRHEA.Alert.The patient has had abdominal pain. The pain is described as located in the RLQ. ( right lower back pain,abd pain and loose stool when she eats).SEPSIS SCREEN: SIRS Screen negative. Sepsis Screen negative. No suspected or confirmed signs ofinfection present. --14:45 06/19/20 Karma Eddy R.N.14:38 06/19/20. BP: 134/78. MAP: 96. HR: 93. RR: 18. O2 saturation: 96%. Temp: 97.4 F (oral). Painlevel now: 02/21. --14:45 06/19/20 Karma Eddy R.N.Weight: 86.1 kg stated. Height/Length: 66 inches Per Patient. BMI: 30.7. --14:37 06/19/20 Karma Eddy R.N.MedicationsCipro Oral 500 mg, 2x a day, x 10 days. --14:40 06/19/20 Nasreen Wells R.N. Zoloft Oral. --14:41 06/19/20 Karma Eddy R.N. Abilify Oral. --14:41 06/19/20 Karma Eddy R.N.The following entry was struck and corrected by Nasreen Wells R.N., 14:53 (06/19/20) Reason forcorrection - other(correction). Cipro Oral. --14:40 06/19/20 Karma Eddy R.N. .AllergiesNone. --14:40 06/19/20 Karma Eddy R.N.PROBLEMS:Borderline personality disorder.UTI - Urinary Tract Infection.Depression. --14:41 06/19/20 Karma Eddy R.N.ADDITIONAL SURGERIES:Cholecystectomy. --14:41 06/19/20 Karma Eddy R.N.HistoryPAST MEDICAL HX: Immunizations: up-to-date. Last normal menstrual period- few months. Uses depo 2 Clinical Report - Nurses [facility] Emergency Department [address] [place] [address] Phone #: ext- [phone] 06/19/2020 14:37 Patient: SCARLET SOLOMON Sex: F : 2000 Age: 20y implants. SOCIAL HX: Never smoker. No alcohol use or drug use. No recent travel. No known contact with a sick individual. The patient was offered HIV testing but declined and hepatitis C testing but declined. The patient has not traveled outside the [place] Infectious disease exposure: No infectious disease exposure. Patient is not a known carrier of tuberculosis, hepatitis, HIV, MRSA or VRE. Patient is not a known carrier of CRE. SELF HARM ASSESSMENT: Self harm assessment was performed. The patient answered "no" to the question(s) "Have you recently felt down, depressed, or hopeless?", "Do you have thoughts of harming or killing yourself?", "Do you have a plan for harming or killing yourself?", "Have you recently had thoughts about harming or killing others?", "Do you have any dangerous items in your possession?", "Have you noticed less interest or pleasure in doing things?", "Are you here because you tried to hurt yourself?" and "Have you ever tried to hurt yourself before today?". ABUSE ASSESSMENT: Abuse assessment. Abuse denied. No suspicion of abuse. No report of abuse. NUTRITIONAL RISK ASSESSMENT: The nutritional risk assessment revealed no deficiencies. FUNCTIONAL ASSESSMENT: Functional assessment: no impairments noted. LEARNING NEEDS ASSESSMENT: The learning needs assessment revealed no barriers. FALL RISK ASSESSMENT: Fall risk assessment completed. No risk factors identified. SKIN INTEGRITY ASSESSMENT: Skin integrity risk assessment completed. No skin integrity risk identified. --14:45 06/19/20 Karma Eddy R.N. Interventions To treatment room. --14:45 06/19/20 Karma Eddy R.N.PHYSICAL ASSESSMENTAmbulatory to room.GENERAL / NEURO / PSYCH: Alert. Oriented X 4. Appears in pain.HEENT: Mucous membranes are pink.RESPIRATORY: Respirations not labored. Breath sounds within normal limits.CVS: Capillary refill less than 2 seconds.GI / : The patient has had nausea. Emesis noted. (3-4 times today). She has diarrhea (7-8 timestoday). Abdomen soft. Abdominal tenderness in the right lower quadrant and suprapubic area (radiatesto right flank). Bowel sounds within normal limits. CVA tenderness on the right (lower).SKIN: Skin is warm and dry. --14:58 06/19/20 Nasreen Wells R.N.NURSING PROGRESS NOTESPatient gowned. Reassurance given. Three patient identifiers checked. Call light placed in reach. Siderails up x 2. Bed placed in lowest position. Brakes of bed on. Patient ready for evaluation- PA notified. 3 Clinical Report - Nurses [facility] Emergency Department [address] [place] [address] Phone #: ext- [phone] 06/19/2020 14:37 Patient: SCARLET SOLOMON Sex: F : 2000 Age: 20y--14:58 06/19/20 Nasreen Wells R.N.Patient ID band checked for patient name and birthdate: patient confirmed. Instructions provided to collectclean catch urine and patient verbalized understanding. Clean catch urine collected; sample sent to lab forurinalysis. Specimen labeled in the presence of the patient. --14:58 06/19/20 Nasreen Wells R.N.15:02 06/19/2020 Site #1 started via IV in the right antecubital space with an 20g angiocath, with aseptictechniq ue and good blood return; one attempt. Blood drawn: rainbow set. Labeled in the presence of thepatient and sent to the lab. Saline lock flushed with 10 mL saline. --15:02 06/19/20 Nasreen Wells R.N.15:10 06/19/20. BP: 123/75. HR: 86. RR: 18. O2 saturation: 98%. --15:10 06/19/20 Nasreen Wells R.N.15:07 06/19/2020 Started bag #1 1000 mL IV Fluids NS; bolus of 1000 mL wide open via site #1 via IVpump. Allergies verified and confirmed 5 rights. IV patency established. IV site checked: no pain, redness,or swelling. IV flushed thoroughly pre- and post-medication administration. Information reviewed withpatient including reason for taking this medication, signs of allergic reaction and precautions. Verbalizesunderstanding. --15:10 06/19/20 Nasreen Wells R.N.15:07 06/19/2020 Zofran (Ondansetron HCl) IVP 8 mg given over 4 minute(s) via site #1. Allergies verifiedand confirmed 5 rights. IV patency established. IV site checked: no pain, redness, or swelling. IV flushedthoroughly pre- and post-medication administration. IVP given by RN. Information reviewed with patientincluding reason for taking this medication, signs of allergic reaction and precautions. Verbalizesunderstanding. --15:11 1 08/19/19 Nasreen Wells R.N.15:11 06/19/2020 Morphine IVP 4 mg given diluted in NS 10mL over 4 minute(s) via site #1. Allergiesverified and confirmed 5 rights. IV patency established. IV site checked: no pain, redness, or swelling. IVflushed thoroughly pre- and post-medication administration. IVP given by RN. Information reviewed withpatient including reason for taking this medication, signs of allergic reaction, precautions and sedativewarning. Verbalizes understanding. --15:11 06/19/20 Nasreen Wells R.N.15:16 06/19/20. Patient transported to radiology by wheelchair with mask and dietetic technician. --15: Miri Whitehead R.N.Patient returned from sonogram by wheelchair with dietetic technician. --15:56 06/19/20 Nasreen Wells R.N.15:56 06/19/20. BP: 134/75. MAP: 94. HR: 76. RR: 18. O2 saturation: 96% on room air. --15:57 06/19/20Nasreen Wells R.N.Reassessment acuity: LEVEL 3.Rounding: Pain: assessed pain level. Proximity of possessions / care items: call light within easy reach.Plug ins: assured IV pump plugged in; checked status of equipment in use; located all cords, tubes, andlines to prevent fall hazard. Set expectations: advised patient of rounding protocol timing and asked if they 4 Clinical Report - Nurses [facility] Emergency Department [address] [place] [address] Phone #: ext- [phone] 06/19/2020 14:37 Patient: SCARLET SOLOMON Sex: F : 2000 Age: 20yneeded anything else at this time. The patient is calm and resting quietly. Overall patient status isimproved- she states feels better.GI / : The patient reports nausea is still present but improving. She reports abdominal pain is stillpresent but improving. Denies diarrhea or vomiting. --15:57 06/19/20 Nasreen Wells R.N.Reassessment acuity: LEVEL 3.Rounding: Pain: assessed pain level. Position: states comfortable. Personal care / toileting: assisted withtoileting. Proximity of possessions / care items: call light within easy reach. Plug ins: assured IV pumpplugged in; checked status of equipment in use; located all cords, tubes, and lines to prevent fall hazard.Set expectations: advised patient of rounding protocol timing and asked if they needed anything else at thistime. Reassessment after medication administered. Pain still present but improving. She reports nocomplaints and she is calm and resting quietly. Overall patient status is improved- she states feels better.GI / : The patient reports abdominal pain is still present but improving. Denies nausea, diarrhea orvomiting. --16:39 06/19/20 Nasreen Wells R.N.16:38 06/19/20. BP: 118/73. MAP: 88. HR: 89. RR: 18. O2 saturation: 99% on room air. Pain level now:10/22. --16:39 06/19/20 Nasreen Wells R.N.Patient waiting for consult and (Surgical). --16:39 06/19/20 Nasreen Wells R.N.16:56 06/19/20. BP: 125/76. MAP: 92. HR: 83. RR: 16. O2 saturation: 100%. --16:57 06/19/20 Kvng Sharma, Josette, ER Tech1( Pt attempted to give GI4 but was mixed with urine and not suitable for sample, EDIL Wilcox notified).--17:10 06/19/20 Nasreen Wells R.N.16:00 06/19/2020 Zofran IVP Response: no adverse reaction symptoms have improved the patient feelsbetter. --17:18 06/19/20 Nasreen Wells R.N.16:00 06/19/2020 Morphine IVP Response: no adverse reaction symptoms have improved the patient feelsbetter. --17:18 06/19/20 Nasreen Wells R.N.late entry - 17:23 06/19/20. Patient transported to NH by wheelchair with dietetic technician. --17:33 06/19/20Nasreen Wells R.N.Patient returned from NH by wheelchair with dietetic technician. --17:33 06/19/20 Nasreen Wells R.N.18:03 06/19/20. BP: 132/70. MAP: 90. HR: 85. RR: 16. O2 saturation: 99%. --18:03 06/19/20 Josette Duff ER Xsyj273:16 06/19/2020 Site #1 removed upon discharge. Pressu re dressing applied. --18:16 06/19/20 Karma Eddy R.N. 5 Clinical Report - Nurses [facility] Emergency Department [address] [place] [address] Phone #: ext- [phone] 06/19/2020 14:37 Patient: SCARLET SOLOMON Sex: F : 2000 Age: 20y 18:16 06/19/2020 IV Fluids NS via IV site #1 Discontinued: completed upon discharge. Total amount infused: 1000 mL. IV patency established. IV site checked: no pain, redness, or swelling. IV flushed thoroughly. --18:16 06/19/20 Karma Eddy R.N.DISPOSITION / DISCHARGE Condition at departure: improved. No learning barriers present. Discharge instructions provided and reviewed with the patient. Reviewed medication(s) (stop cipro). Reviewed fever care instructions. ( follow up with md on tuesday even if well). The patient was discharged home and unaccompanied at time of discharge. She left ambulatory and via private ve hicle. Patient driving. --18:17 06/19/20 Karma Eddy R.N. 18:16 06/19/20. BP: 135/84. MAP: 101. HR: 78. RR: 18. O2 saturation: 99%. Temp: 98 F. Pain level now: 09/24. --18:17 06/19/20 Karma Eddy R.N. Departure time: 18:17 06/19/2020. --18:17 06/19/20 Karma Eddy R.N.Locked/Released at 06/19/2020 18:18 by Karma Eddy R.N. Name Value Range Interpretation Code Description Data Shira rce(s) Supporting Document(s) ID Date Data Source [id number] 06/19/2020 02:47:[address] [facility] 1 Clinical Report - Physicians/Mid Levels [facility] Emergency Department [address] [place] [address] Phone #: ext- [phone] 06/19/2020 14:37 Patient: SCARLET SOLOMON Sex: F : 2000 Age: 20y Time Seen: 14:55 06/19/2020. Arrived- By private vehicle. Historian- patient.HISTORY OF PRESENT ILLNESS Chief Complaint: VOMITING and DIARRHEA. ABDOMINAL PAIN and NAUSEA. This started 4 days ago; started with loose stool seen here 2 or 3 days ago dx with kidney infection, sent home on antibiotics and now has not been eating, n and v and is still present. It was abrupt in onset and has been constant. The patient has had moderate, intermittent, crampy right- sided flank pain with nausea, vomiting and fever. No recent travel. She has had nausea, vomiting and diarrhea. Has recently been on antibiotics but not recently been camping. No history of possible bad food exposure, known contact with a sick individual or change in routine. The illness is described as moderate. Similar symptoms previously. Patient has had similar symptoms several times. Recent medical care: The patient was seen recently at this facility.REVIEW OF SYSTEMSLast normal menstrual period unknown- neg test on Tuesday. Uses depo injections. No fever,muscle aches, difficulty with urination, dark urine or headache. No dizziness, sore throat, cough, chestpain or difficulty breathing. No excessive urination, skin rash, jaundice, back pain or fainting episodes.No blurred vision.PAST HISTORYAdditional Surgeries:Cholecystectomy. Medications: Abilify Oral. Zoloft Oral. Cipro Oral 500 mg, 2x a day, x 10 days. Allergies: None.SOCIAL HISTORYNever smoker. No alcohol use or drug use.PHYSICAL EXAMVital Signs: 06/19/2020 14:38 BP: 134/78. MAP: 96. HR: 93. RR: 18. O2 saturation: 96%. Temp: 97.4 F.Pain level now: 02/21. Have been reviewed as normal. Oxygen saturation normal. 2 Clinical Report - Physicians/Mid Levels [facility] Emergency Department [address] [place] [address] Phone #: ext- [phone] 06/19/2020 14:37 Patient: SCARLET SOLOMON Sex: F : 2000 Age: 20y Appearance: Alert. Oriented X3. No acute distress. Eyes: Pupils equal, round and reactive to light. Eyes normal inspection. ENT: Ears normal. Nose normal. Pharynx normal. Neck: Normal inspection. CVS: Normal heart rate and rhythm. Heart sounds normal. Respiratory: No respiratory distress. Painless inspiration. Abdomen: Soft. Mild tenderness in the right lower quadrant. No guarding or rebound tenderness. Bowel sounds normal. No organomegaly. No mass. Back: Normal inspection. No CVA tenderness. Skin: Skin warm and dry. Normal skin color. No rash. Normal skin turgor. Extremities: Extremities exhibit normal ROM. No lower extremity edema. Neuro: Oriented X 3.LABS, X-RAYS, AND EKGCT Abdomen - Pelvis: Normal study. Neg Appendix. Study type: upper abdomen; lower abdomen;pelvis. Abdomen - pelvic CT performed with IV contrast. The study was interpreted by the radiologist andcontemporaneously by me. Interpretation time: 18:05 06/19/2020.Bedside Pelvic Sonogram: Negative exam. The exam was performed by a prosthetics lab technician. The study wasinterpreted by the ra diologist and contemporaneously by me. Interpretation time: 18:04 06/19/2020.Pelvic Sonogram: Normal study. Study type: transvaginal evaluation. The study was interpreted by theradiologist and contemporaneously by me. Interpretation time: 18:03 06/19/2020.Note - Special Studies: Renal US- Negative.Laboratory Tests: Laboratory tests have been ordered, with results reviewed and considered in themedical decision making process. US TRANSVAGINAL (NON OB): (STELLA: 06/19/2020 15:44) ( MsgRcvd 06/19/2020 16:03) In Progress US TRANSVAGINAL (Non OB) REASON FOR OBS: RLQ Pain TRANSPORTATION: W IV? N O2? N STATUS: SIGNED WAIVER ISOLATION N CBC w Diff: (STELLA: 06/19/2020 15:01) ( MigRcvd 06/19/2020 15:36) Final results Test Result Flag Units (Reference) CBC W/AUTOMATED DIFF COMPLETE BLOOD COUNT WBC 10.2 10/uL (4.2 - 11.0) RBC 4.88 10/uL (4.20 - 5.40) HEMOGLOBIN 14.8 g/dL (12.0 - 16.0) HEMATOCRIT 43.2 % (37.0 - 47.0) MCV 88.5 fL (81.0 - 101) MCH 30.3 pg (27.0 - 34.0) MCHC 34.3 g/dL (31.0 - 36.0) RDW 11.5 % (11.5 - 14.5) PLATELETS 391 10/uL (150 - 450) MPV 8.5 fL (7.4 - 10.4) NEUT 69.5 % (37.0 - 80.0) LYMPH 22.3 L % (25.0 - 40.0) MONO 6.8 % (3.0 - 8.0) EOS 0.6 % (0.0 - 7.0) 3 Clinical Report - Physicians/Mid Levels [facility] Emergency Department [address] [place] [address] Phone #: ext- [phone] 06/19/2020 14:37 Patient: SCARLET SOLOMON Sex: F : 2000 Age: 20y BASO 0.3 % (0.0 - 2.5) %IG 0.5 H % (0.0 - 0.0) %NRBC 0.0 % (0.0 - 0.0) #NEUT 7.10 H 10/uL (2.00 - 6.90) #LYMPH 2.28 10/uL (0.60 - 3.40) #MONO 0.69 10/uL (0.00 - 0.90) #EOS 0.06 10/uL (0.00 - 0.70) #BASO 0.03 10/uL (0.00 - 0.20) #IG 0.05 10/uL (0.00 - 0.10) #NRBC 0.00 10/uL (0.00 - 0.00) MANUAL DIFF NOT INDICATED RBC MORPH NOT INDICATEDCMP: (STELLA: 06/19/2020 15:01) ( MsgRcvd 06/19/2020 15:50) Final results Test Result Flag Units (Reference) COMPREHENSIVE METABOLIC PANEL COMPREHENSIVE METABOLIC PANEL SODIUM 139 mEq/L (134 - 153) POTASSIUM 4 .2 mEq/L (3.6 - 5.0) CHLORIDE 102 mEq/L (98 - 107) CO2 30 MEQ/L (22 - 30) GLUCOSE 118 H MG/DL (65 - 110) BUN 10 MG/DL (7 - 21) CREATININE 0.6 L MG/DL (0.7 - 1.5) BUN/CREAT 17 (8 - 27) TOTAL PROTEIN 7.7 G/DL (6.3 - 8.2) ALBUMIN 4.6 G/DL (3.9 - 5.0) GLOBULIN 3.1 GM/DL (2.4 - 3.2) A/G RATIO 1.5 (0.8 - 2.0) CALCIUM 9.6 MG/DL (8.4 - 10.2) TOTAL BILI 0.7 MG/DL (0.2 - 1.3) ALKALINE PHOS 101 U/L (38 - 126) SGOT/AST 25 U/L (5 - 40) SGPT/ALT 21 U/L (7 - 56) ANION GAP 7.0 L mmol/L (8.0 - 16.0) AGE 20 yrs NON-AA GFR >60 mL/min AFR AMER GFR >60 mL/min Male GFR Interprentation 20-49 yrs >60 mL/min Kajsqx10-86 yrs >56 mL/min Normal 60-69 yrs >49 mL/min Normal 70-79yrs>42 mL/min Normal 80 and above >35 mL/min Normal Female GFRInterpretation 20-39 yrs >60 mL/min Normal 40-49 yrs >58 mL/minNormal 50-59 yrs >51 mL/min Normal 60-69 yrs >45 mL/min Svunok33-23 yrs >39 mL/min Normal 80 and above >32 mL/min NormalLipase: (STELLA: 06/19/2020 15:01) ( MsgRcvd 06/19/2020 15:47) Final results Test Result Flag Units (Reference) LIPASE 33 U/L (13 - 60)Urinalysis: (STELLA: 06/19/2020 14:50) ( MsgRcvd 06/19/2020 15:37) Final results Test Result Flag Units (Reference) URINALYSIS URINALYSIS SOURCE R COLOR yellow (NORMAL: Yello CLARITY clear (NORMAL: Clear 4 Clinical Report - Physicians/Mid Levels [facility] Emergency Department [address] [place] [address] Phone #: ext- [phone] 06/19/2020 14:37 Patient: SCARLET SOLOMON Sex: F : 2000 Age: 20y SPEC GRAVITY 1.015 (1.001 - 1.030 pH 8 (5 - 9) GLUCOSE NORM (NORMAL: Negat BILIRUBIN NEG (NORMAL: Negat KETONE NEG (NORMAL: Negat PROTEIN NEG (NORMAL: Negat NITRITE NEG (NORMAL: Negat BLOOD 25 A (NORMAL: Negat LEUK EST NEG (NORMAL: Negat UROBILINOGEN NOR (less than 1.0 MICROSCOPIC See Below WBC 1 - 3 (NORMAL: NONE RBC 3 - 5 (NORMAL: NONE EPITHELIAL MODERATE A (NORMAL: NONE BACTERIA 1+ SMALL (NORMAL: NONELactic Acid: (STELLA: 06/19/2020 15:01) ( [facility] 06/19/[place] 15:29) Final results Test Result Flag Units (Reference) LACTIC ACID 1.6 MMOL/L (0.2 - 2.2) Pelvis: (STELLA: 06/19/2020 15:02) ( [facility] 06/19/2020 16:03) In ProgressUS PELVICReason(s): Pelvic PainTRANSPORTATION: WC IV? O2? Oxygen?(No) Room: [facility] Renal: (STELLA: 06/19/2020 15:02) ( [facility] 06/19/2020 17:49) In ProgressUS RENALReason(s): Renal Colic/FlankTRANSPORTATION: WC IV? O2? Oxygen?(No) Room: ED Exam RENAL [facility] [address] [place] [address] PHONE: [phone] FAX: [phone] Name .................. : JUANITO Waddell Acct Number.................. : [id number] ROOM. ................. : TR-1A MR Number ................... : [id number] Stay type ............. : E/R Discharge Date......... ... : Admit Date ......... : 1 08/19/19 Admit Phys .................... : COONEYNORM Date of ....... : 2000 Family Phys ................... : UNKNOWN CO Phone .................. : [phone] Age ................................ : 20 Film# .................. .:[id number] Sex ................................. : F Unsigned transcriptions are preliminary reports and do not represent a medical or legal document RENAL [id number] COMPLETE:06/19/20 16:03 [facility] [id number] Reason(s): Renal Colic/Flank BILATERAL RENAL ULTRASOUND: HISTORY: Renal colic and flank pain. FINDINGS: The right kidney measures 1.1 cm. The left kidney measures 11.4 cm. No hydronephrosis noted. 5 Clinical Rep ort - Physicians/Mid Levels [facility] Emergency Department [address] [place] [address] Phone #: ext- [phone] 06/19/2020 14:37 Patient: SCARLET SOLOMON Sex: F : 2000 Age: 20y Bilateral ureteral jets noted in the bladder. Cortical echotexture appears normal. No renal calculi noted. IMPRESSION: Unremarkable bilateral renal ultrasound. Electronically Reviewed and Signed By DCTNAME , SIGNDATE, [facility] Transcribe Initials: BENJAMIN , Transcribe Date: 06/19/20 17:48, Dictation Date: <<REPDIST>> Page 1 of 1 US Abdomen Limited: (STELLA: 06/19/2020 15:02) ( MsgRcvd 06/19/2020 16:03) In Progress US ABD LIMITED Reason(s): RLQ PAIN TRANSPORTATION: IV? O2? Oxygen?(No) Room: ED : No CMTS: Appy? . Note - Tests: (ABD Limited US- neg, appendix US).PROGRESS AND PROCEDURESCourse of Care: 18:Jun 19 2020. Evaluation after observation and results of tests back. (D/W Daive he recommended CT again, CT is negative, pt is agreeable with dx and txplan stop taking Cipro and follow up with your PCP.). Patient counseled in person regarding the patient's stable condition, test results, diagnosis and need for follow-up. Patient agrees with plan of care. 18:Jun 19 2020. Disposition: Discharged home in good and improved condition (:Jun 19 2020).CLINICAL IMPRESSION Acute right lower quadrant abdominal pain.INSTRUCTIONS Drink plenty of fluids. 6 Clinical Report - Physicians/Mid Levels [facility] Emergency Department [address] [place] [address] Phone #: ext- [phone] 06/19/2020 14:37 Patient: SCARLET SOLOMON Sex: F : 2000 Age: 20y (Continue taking Zofran as needed and you can Try Imodium available over the counter.). Warnings: Further evaluation is necessary. It is very important to follow up with a healthcare provider. Your Current Medications: Your current home medications have been reviewed. CONTINUE TAKING THE FOLLOWING MEDICATIONS: Abilify Oral. Cipro Oral : 500 mg 2x a day, x 10 days. Zoloft Oral. Follow-up: Follow up with your doctor Tuesday even if well. Reason for referral: evaluation and treatment. Summary of care provided to patient. Understanding of the discharge instructions verbalized by patient.(Electronically signed by EDIL Moreon 06/19/2020 21:42) Name Value Range Interpretation Code Description Data Shira rce(s) Supporting Document(s) ID Date Data Source [id number] 06/19/2020 03:49:[address] [facility] Name Value Range Interpretation Code Description Data Shira rce(s) Supporting Document(s) COMPREHENSIVE METABOLIC PANEL [facility] COMPREHENSIVE METABOLIC PANEL Sodium [Moles/volume] in Serum or Plasma 139 mEq/L 134 - 153 [facility] Potassium [Moles/volume] in Serum or Plasma 4.2 mEq/L 3.6 - 5.0 [facility] Chloride [Moles/volume] in Serum or Plasma 102 mEq/L 98 - 107 [facility] Carbon dioxide, total [Moles/volume] in Serum or Plasma 30 MEQ/L 22 - 30 [facility] Glucose [Mass/volume] in Serum or Plasma 118 MG/DL 65 - [address] [facility] BUN 10 MG/DL 7 - 21 [facility] Creatinine [Mass/volume] in Serum or Plasma 0.6 MG/DL 0.7 - 1.[address] [facility] BUN/CREAT 17 8 - 27 [facility] Protein [Mass/volume] in Serum or Plasma 7.7 G/DL 6.3 - 8.2 [facility] Albumin [Mass/volume] in Serum or Plasma 4.6 G/DL 3.9 - 5.0 [facility] Globulin [Mass/volume] in Serum by calculation 3.1 GM/DL 2.4 - 3.2 [facility] A/G RATIO 1.5 0.8 - 2.0 [facility] Calcium [Mass/volume] in Serum or Plasma 9.6 MG/DL 8.4 - 10.2 [facility] Bilirubin.total [Mass/volume] in Serum or Plasma 0.7 MG/DL 0.2 - 1.3 [facility] Alkaline phosphatase [Enzymatic activity/volume] in Serum or Plasma 101 U/L 38 - 126 [facility] Aspartate aminotransferase [Enzymatic activity/volume] in Serum or Plasma 25 U/L 5 - 40 [facility] Alanine aminotransferase [Enzymatic activity/volume] in Seru m or Plasma 21 U/L 7 - 56 [facility] Anion gap 3 in Serum or Plasma 7.0 mmol/L 8.0 - 16.[address] [facility] AGE 20 yrs [facility] NON-AA GFR >60 mL/min [facility] AFR AMER GFR >60 mL/min [facility] Male GFR In terprentation 20-49 yrs >60 mL/min Normal 50-59 yrs >56 mL/min Normal 60-69 yrs >49 mL/min Normal 70-79yrs >42 mL/min Normal 80 and above >35 mL/min Normal Female GFR Interpretation 20-39 yrs >60 mL/min Normal 40-49 yrs >58 mL/min Normal 50-59 yrs >51 mL/min Normal 60-69 yrs >45 mL/min Normal 70-79 yrs >39 mL/min Normal 80 and above >32 mL/min Normal ID Date Data Source [id number] 06/19/2020 03:47:00 PM [facility] Name Value Range Interpretation Code Description Data Shira rce(s) Supporting Document(s) Lipase [Enzymatic activity/volume] in Serum or Plasma 33 U/L 13 - 60 [facility] ID Date Data Source [id number] 06/19/2020 03:36:00 PM [facility] Name Value Range Interpretation Code Description Data Shira rce(s) Supporting Document(s) CBC W/AUTOMATED DIFF [facility] COMPLETE BLOOD COUNT Leukocytes [#/volume] in Blood by Automated count 10.2 10^3/uL 4.2 - 11.0 [facility] Erythrocytes [#/volume] in Blood by Automated count 4.88 10^6/uL 4. 20 - 5.40 [facility] Hemoglobin [Mass/volume] in Blood 14.8 g/dL 12.0 - 16.0 [facility] Hematocrit [Volume Fraction] of Blood by Automated count 43.2 % 3 7.0 - 47.0 [facility] Erythrocyte mean corpuscular volume [Entitic volume] by Auto mated count 88.5 fL 81.0 - 101 [facility] Erythrocyte mean corpuscular hemoglobin [Entitic mass] by Automated count 30.3 pg 27.0 - 34.0 [facility] Erythrocyte mean corpuscular hemoglobin concentration [Mass/volume] by Automated count 34.3 g/dL 31.0 - 36.0 [facility] Erythrocyte distribution width [Ratio] by Automated count 11.5 % 11.5 - 14.5 [facility] Platelets [#/volume] in Blood by Automated count 391 10^3/uL 150 - [address] [facility] Platelet mean volume [Entitic volume] in Blood by Automated count 8.5 fL 7.4 - 10.4 [facility] Neutrophils/100 leukocytes in Blood by Automated count 69.5 % 37. 0 - 80.0 [facility] Lymphocytes/100 leukocytes in Blood by Manual count 22.3 % 25.0 - 40.[address] [facility] Monocytes/100 leukocytes in Blood by Automated count 6.8 % 3.0 - 8.0 [facility] Eosinophils/100 leukocytes in Blood by Automated count 0.6 % 0.0 - 7.0 [facility] Basophils/100 leukocytes in Blood by Automated count 0.3 % 0.0 - 2.5 [facility] %IG 0.5 % 0.0 - 0.0 H [facility] al %NRBC 0.0 % 0.0 - 0.0 [facility] al Neutrophils [#/volume] in Blood by Automated count 7.10 10^3/uL 2.00 - 6.[address] [facility] Lymphocytes [#/volume] in Blood by Automated count 2.28 10^3/uL 0.60 - 3.40 [facility] Monocytes [#/volume] in Blood by Automated count 0.69 10^3/uL 0.00 - 0.90 [facility] Eosinophils [#/volume] in Blood by Automated count 0.06 10^3/uL 0.00 - 0.70 [facility] Basophils [#/volume] in Blood by Automated count 0.03 10^3/uL 0.00 - 0.20 [facility] #IG 0.05 10^3/uL 0.00 - 0.10 [facility] ospital #NRBC 0.00 10^3/uL 0.00 - 0.00 [facility] ospital MANUAL DIFF NOT INDICATED [facility] RBC MORPH NOT INDICATED [facility] spital ID Date Data Source [id number] 06/19/2020 03:29:[address] [facility] Name Value Range Interpretation Code Description Data Shira rce(s) Supporting Document(s) Lactate [Moles/volume] in Serum or Plasma 1.6 MMOL/L 0.2 - 2.2 [facility] ID Date Data Source [id number] 06/19/2020 03:36:[address] [facility] Name Value Range Interpretation Code Description Data Shira rce(s) Supporting Document(s) [facility] COL[facility] yellow NORMAL: Yellow [facility] ospital CLARITY clear NORMAL: Clear [facility] spital Specific gravity of Urine by Test strip 1.015 1.001 - 1.030 [facility] pH 8 5 - 9 [facility] Glucose [Mass/volume] in Urine by Test strip NORM [facility]: [facility] Bil[facility].total [Presence] in Urine by Test strip NEG NORMAL: Negative [facility] Ketones [Presence] in Urine by Test strip NEG NORMAL: Negative [facility] Protein [Mass/volume] in Urine by Test strip NEG [facility]: [facility] Nitrite [Presence] in Urine by Test strip NEG NORMAL: Negative [facility] BLOOD 25 NORMAL: Negative A [facility] Leukocyte esterase [Presence] in Urine by Test strip NEG MAURIZIO L: Negative [facility] Urobilinogen [Mass/volume] in Urine by Test strip NOR less rocky n 1.0 mg/dL [facility] MICROSCOPIC See Below [facility] ital WBC 1 - 3 NORMAL: NONE SEEN [facility] Erythrocytes [#/volume] in Urine by Test strip 3 - 5 NORMAL: NON E SEEN [facility] EPITHELIAL MODERATE NORMAL: NONE SEEN A [facility] Bacteria [Presence] in Urine sediment by Light microscopy 1+ SMALL NORMAL: NONE SEEN [facility] ID Date Data Source [id number] 06/16/2020 10:19:[address] [facility] [address] [facility] Emergency Department [address] [place] [address] Phone #: [phone] 06/16/2020 22:13 Patient: SCARLET SOLOMON Sex: F : 2000 Age: 20yWEIGHT:86.1 kg (S) HEIGHT:66 inches (S) BMI:30.7ALLERGIES: NoneCHIEF COMPLAINT: abdominal pain, nauseaDIAGNOSIS: Pyelonephritis, Urinary tract infectious diseaseLAB ORDERSOrder Description Priority Entered Acknowledged InitialedCBC w Diff STAT 22:37 06/16/2020 23:03 Charley Miriwicho Hernandez, Benedict R.N. M.D.;CMP STAT 22:37 06/16/2020 23:03 Charley Miri David, Benedict R.N. M.D.;Lipase STAT 22:37 06/16/2020 23:03 Charley Miriwicho Hernandez, Benedict R.N. M.D.;Urinalysis (Clean STAT 22:37 06/16/2020 22:40 Efrain WhiteheadaCatchBenedict Scott R.N. M.D.;Beta-HCG, Qual STAT 22:37 06/16/2020 23:03 Efrain WhiteheadaSerum Benedict Hernandez R.N. M.D.;Lactic Acid STAT 22:37 06/16/2020 23:03 Charley Miriwicho Hernandez, Benedict R.N. M.D.;Culture, Urine STAT 23:27 06/16/2020 23:28 Miri Whitehead(Urine, Clean David Benedict RTony Dooley;DIAGNOSTIC STUDY ORDERSOrder Description Priority Entered Acknowledged InitialedCT Abd PEL W/ IV STAT 23:30 06/16/2020 00:12 06/17/2020Contrast Only Benedict Hernandez Laura(Oxygen?(No)) Soumya; R.N.(IV?(Yes)) Reason for Study: RLQ, rt abdomen pain, infected urineMEDICATION/IV/DRIP/FLUID ORDERS [address] [facility] Emergency Department [address] [place] [address] Phone #: ext- [phone] 06/16/2020 22:13 Patient: SCARLET SOLOMON Sex: F : 2000 Age: 20yOrder Description Priority Entered Acknowledged InitialedNS IV 1000 mL 22:38 06/16/2020 22:58 Polo,Bolus: : Bolus 1000 Terririn, Benedict Beth R.N.mL (X1) M.DElder;Toradol 15 mg IVP 22:38 06/16/2020 22:58 Melarakendrick,X1 dose: 15 mg Turrin, Benedict Beth R.N.(NOW x1) M.D.;Zofran 4 mg IVP X 1 22:38 06/16/2020 22:57 Polo,dose: 4 mg (NOW Turrin, Benedict Beth R.N.x1) M.D.;cefTRIAXone 23:27 06/16/2020 23:37 Whitehead, Miri(1gm/50ml) IVPB Terririn, Benedict R.N.1000 mg with M.D.;Dextrose 50 mlspike bag (D5W)levoFLOXacin PO 01:02 06/17/2020 01:25 Whitehead, Kkee521 mg Turrin, Benedict R.N. M.D.;Pyridium PO 200 01:03 06/17/2020 01:25 Whitehead, Theamg Turrin, Benedict R.N. M.D.;GENERAL ORDER SOrder Description Priority Entered Acknowledged InitialedNPO 22:37 06/16/2020 22:40 Miri Whitehead Riccardo R.N. M.D.;Saline Lock 22:37 06/16/2020 23:03 Miri Whitehead Riccardo R.N. M.D.;[Electronically signed by Miri Whitehead R.N. (:06/17/2020)][Electronically signed by Benedict Hernandez M.D. (04:42 06/17/2020)][Electronically locked by Miri Whitehead R.N. (:06/17/2020)] Name Value Range Interpretation Code Description Data Shira rce(s) Supporting Document(s) ID Date Data Source [id number] 06/16/2020 10:19:00 PM [facility] [address] [facility] Emergency Department [address] [place] [address] Phone #: ext- [phone] 06/16/2020 22:13 Patient: SCARLET SOLOMON Sex: F : 2000 Age: 20yWeight: 86.1 kgHeight/Length: 66 in.BMI: 30.7ALLERGIES: NoneThe patient's Home Medications are listed below:CONTINUE TAKING THE FOLLOWING MEDICATIONS: ARIPiprazole (sensor) Oral (2 mg), at bedtime Cetirizine HCl Oral (10 mg), daily Ondansetron Oral (4 mg) 1 tablet, daily Pseudoephedrine HCl Oral (60 mg), q6h, prn Sertraline HCl Oral (100 mg), daily Zoloft OralThe source(s) of the original Home Medication information:Not obtained.The following Medications were given to the patient in the Emergency Department:Zofran [IVP] IVP 4 mg, administered: 06/16/2020 10:57:00 PMToradol [IVP] IVP 15 mg, administered: 06/16/2020 10:57:00 PMSodium Chloride [IV] IV Fluids bolus 1000 mL wide open, administered: 06/16/2020 10:58:00 PMCEFTRIAXONE (1GM/50ML) [IVPB] IVPB bolus 0, then 1 gm 100 mL/hr, administered: 06/16/2020 11:37:00PMLevofloxacin [PO] PO 500 mg, administered: 06/17/2020 1:15:00 AMPyridium [PO] PO 200 mg, administered: 06/17/2020 1:15:00 AM [address] [facility] Emergency Department [address] [place] [address] Phone #: ext- [phone] 06/16/2020 22:13 Patient: SCARLET SOLOMON Sex: F : 2000 Age: 20yThe following Medications were prescribed to the patient:Cipro 500 mg tablet Take 1 tablet twice a day for 10 days -- Dispense 20 tablet. Refills: 0. Substitutionpermitted.[facility] [id number] ; [place] [address]. .ibuprofen 600 mg tablet Take 1 tablet four times a day as needed for pain for 7 days -- Dispense 28tablet. Refills: 0. Substitution permitted.[facility] [id number] ; [place] [address]. .Pyridium 100 mg tablet Take 1 tablet three times a day for 5 days -- Dispense 15 tablet. Refills: 0.Substitution permitted.[facility] [id number] ; [place] [address]. . -- Benedict Hernandez M.D. Name Value Range Interpretation Code Description Data Shira rce(s) Supporting Document(s) ID Date Data Source [id number] 06/16/2020 10:19:00 PM [facility] [address] [facility] Emergency Department [address] [place] [address] Phone #: ext- [phone] 06/16/2020 22:13 Patient: SCARLET SOLOMON Sex: F : 2000 Age: 20yWeight: 86.1 kgHeight/Length: 66 inBMI: 30.7ALLERGIES: None Date/Time Medication Administered Medication OrderedStart SODIUM CHLORIDE [IV] NS IV 1000 mL Bolus: : Bolus 180479:[id number] 06/16/2020 Dose: IV Fluids mL (X1)Beth Cuellar R.N. Bolus: 1000 mL wide open---- Dispensed: 1000 mL bagStop Site: #1 left AC23:58 06/16/2020Miri Whitehead R.N.Given TORADOL [IVP] (KETOROLAC Toradol 15 mg IVP X1 dose: 15 mg22:57 06/16/2020 TROMETHAMINE) (NOW x1)Beth Cuellar, R.N. Dose: 15 mg IVP Site: #1 left ACGiven ZOFRAN [IVP] (ONDANSETRON HCL) Zofran 4 mg IVP X 1 dose: 4 mg22:57 06/16/2020 Dose: 4 mg IVP (NOW x1)Beth Cuellar R.N. Site: #1 left ACStart CEFTRIAXONE (1GM/50ML) [IVPB] cefTRIAXone (1gm/50ml) IVPB23:37 06/16/2020 Dose: 1 gm IVPB 1000 mg with Dextrose 50 ml spikeMiri Whitehead RElderNElder Rate: 100 mL/hr over 30 minute(s) bag (D5W)---- Dispensed: 50 mL bagStop Site: #1 left AC00:58 06/17/2020Miri Whitehead R.N.Given LEVOFLOXACIN [PO] levoFLOXacin PO 500 mg01:15 06/17/2020 Dose: 500 mg Tablets POMiri Whitehead R.N.Given PYRIDIUM [PO] (PHENAZOPYRIDINE Pyridium PO 200 mg01:15 06/17/2020 HCL)Miri Whitehead R.N. Dose: 200 mg Tablets PO Name Value Range Interpretation Code Description Data Shira rce(s) Supporting Document(s) ID Date Data Source [id number] 06/16/2020 10:19:00 PM EST [facility] [address] [facility] Emergency Department [address] [place] [address] Phone #: ext- [phone] 06/16/2020 22:13 Patient: SCARLET SOLOMON Sex: F : 2000 Age: 20yAcute pyelonephritisAcute urinary tract infection with pyelonephritis. No hematuria.INSTRUCTIONSAlternate Tylenol (Acetaminophen) or Motrin (Ibuprofen) for fever, temperature greater than 101 degreesorally. Take according to label instructions. Return to work in three days.Drink plenty of fluids. Avoid alcohol. Avoid fatty, fried/greasy, lactose-containing (such as milk, cheeseand ice cream), salty and spicy foods. No alcohol. Do not smoke.Warnings: Further evaluation is necessary. It is very important to follow up with a healthcare provider.GENERAL WARNINGS: Return or contact your physician immediately if your condition worsens orchanges unexpectedly, if not improving as expected, or if other problems arise. SPECIFICALLY, return ifyou develop pain in the abdomen, pelvis, back or shoulder, fever, vomiting, the inability to keep fluidsdown, blood in vomitus, blood in diarrhea, fainting or lightheadedness.Your Current Medications: Your current home medications have been reviewed.CONTINUE TAKING THE FOLLOWING MEDICATIONS:ARIPiprazole (sensor) Oral : Tablet 2 mg, at bedtime.Cetirizine HCl Oral : Tablet 10 mg, daily.Ondansetron Oral : Tablet Disintegrating 4 mg, 1 tablet daily.Pseudoephedrine HCl Oral : Tablet 60 mg, q6h, prn.Sertraline HCl Oral : Tablet 100 mg, daily.Zoloft Oral.Prescription Medications:Cipro 500 mg tablet Take 1 tablet twice a day for 10 days -- Dispense 20 tablet. Refills: 0. Substitutionpermitted.Pharmacy - [facility] [id number] ; [place] [address]. .ibuprofen 600 mg tablet Take 1 tablet four times a day as needed for pain for 7 days -- Dispense 28tablet. Refills: 0. Substitution permitted.Pharmacy - [facility] [id number] ; [place] [address]. .Pyridium 100 mg tablet Take 1 tablet three times a da y for 5 days -- Dispense 15 tablet. Refills: 0.Substitution permitted. [address] [facility] Emergency Department [address] [place] [address] Phone #: ext- [phone] 06/16/2020 22:13 Patient: SCARLET SOLOMON Sex: F : 2000 Age: 20yPharmacy - [facility] [id number] ; [place] [address]. .Follow-up:Return to the emergency department as needed. Follow up with your healthcare provider in two dayseven if well. Reason for referral: evaluation and treatment. Summary of care provided to patient via paper.Understanding of the discharge instructions verbalized by patient. Expected course of illness, dischargeinstructions, activity level, diet, prescriptions x3, follow-up appointment and risks and benefits of treatmentreviewed with patient and understanding verbalized. Agrees to plan of care. ADDITIONAL INFORMATIONKidney Infection (Adult Female)An infection in one or both kidneys is called "pyelonephritis." It usually happens when bacteria (orrarely, viruses, fungi, or other disease- causing organisms) get into the kidney. The bacteria (or otherdisease-causing organisms) can enter the kidneys from the bladder or blood traveling from otherparts of the body. A kidney infection can become serious. It can cause severe illness, scarring of thekidneys, or kidney failure if not treated properly.Common causes for this problem include: [address] [facility] Emergency Department [address] [place] [address] Phone #: ext- [phone] 06/16/2020 22:13 Patient: SCARLET SOLOMON Sex: F : 2000 Age: 20y Not keeping the genital area clean and dry, which promotes the growth of bacteria Wiping back to front which drags bacteria from the rectum toward the urinary opening (urethra) Wearing tight pants or underwear (this lets moisture build up in the genital area, which helps bacteria grow) Holding urine in for long periods of time DehydrationKidney infections can cause symptoms similar to a bladder infection. Symptoms include: Pain (or burning) when urinating Having to urinate more often than usual Blood in the urine (pink or red) Abdominal pain or discomfort, usually in the lower abdomen Pain in the side or back Pain above the pubic bone Fever or chills Vomiting Loss of appetiteTreatment is oral antibiotics, or in more severe cases, intramuscular or IV antibiotics. These arestarted right away and may be changed once urine culture results determine the infecting organisms.Treatment helps prevent a more serious kidney infection.MedicinesMedicines can help in the treatment of a bladder infection: Take antibiotics until they are used up, even if you feel better. It is important to finish them to make sure the infection is gone. Unless another medicine was prescribed, you can use over -the-counter medicines for pain, fever, or discomfort. If you have chronic liver of kidney disease, talk with your healthcare provider before using these medicines. Also talk with your provider if you've ever had a stomach ulcer or gastrointestinal (GI) bleeding, or are taking blood thinners.Home care [address] [facility] Emergency Department [address] [place] [address] Phone #: ext- [phone] 06/16/2020 22:13 Patient: SCARLET SOLOMON Sex: F : 2000 Age: 20yThe following are general care guidelines: Stay home from work or school. Rest in bed until your fever breaks and you are feeling better, or as advised by your healthcare provider. Drink lots of fluid unless you must restrict fluids for other medical reasons. This will force the medicine into your urinary system and flush the bacteria out of your body. Ask your healthcare provider how much you should drink. Don't have sex until you have finished all of your medicine and your symptoms are gone. Don't have caffeine, alcohol, or spicy foods. These foods may irritate the kidneys and bladder. Don't take bubble baths. Sensitivity to the chemicals in bubble baths can irritate the urethra. Make sure you wipe from front to back after using the toilet. Wear loose cloths and cotton underwear.PreventionThese self-care steps can help prevent future infections: Drink plenty of fluids to prevent dehydration and flush out the bladder. Do this unless you must restrict fluids for other health reasons, or your healthcare provider told you not to. Proper cleaning after going to the bathroom in important. Make sure you wipe from front to back after using the toilet. Urinate more often. Don't try to hold urine in for a long time. Don't wear tight-fitting pants and underwear. Improve your diet to prevent constipation. Eat more fruits, vegetables, and fiber. Eat less junk and fatty foods. Constipation can make a urinary tract infection more likely. Talk with your healthcare provider if you have trouble with bowel movements. Urinate right after intercourse to flush out the bladder.Follow-up careFollow up with your healthcare provider, or as advised. Additional testing may be needed to makesure the infection has cleared. Close follow-up and further testing is very important to find the causeand to prevent future infections.If a urine culture was done, you will be contacted if your treatment needs to be changed. If directed,you may call to find out the results. [address] [facility] Emergency Department [address] [place] [address] Phone #: ext- [phone] 06/16/2020 22:13 Patient: SCARLET SOLOMON Sex: F : 2000 Age: 20yIf you had an X-ray, CT scan, or other diagnostic test, you will be notified of any new findings thatmay affect your care.Call [phone] if any of the following occur: Trouble breathing Fainting or loss of consciousness Rapid or very slow heart rate Weakness, dizziness, or fainting Difficulty arousing or confusionWhen to seek medical adviceCall your healthcare provider right away if any of these occur: Fever 100.4F (38C) or higher, or as directed by your healthcare provider Not feeling better within 1 to 2 days after starting antibiotics Any symptom that continues after 3 days of treatment Increasing pain in the stomach, back, side, or groin area Repeated vomiting Not able to take prescribed medicine due to nausea or another reason Bloody, dark- colored, or foul smelling urine Trouble urinating or decreased urine output No urine for 8 hours, no tears when crying, sunken eyes, or dry mouth [id number] [employer]. [address] [place] [address], [place] [address]. All rights reserved. This information is not intended as asubstitute for professional medical care. Always follow your healthcare professional's instructions.Fever Control (Adult)A fever is a normal reaction of your body to an illness. The temperature itself usually isn't harmful. Itactually helps your body fight infections. You don't need to treat a fever unless you feel veryuncomfortable. [address] [facility] Emergency Department [address] [place] [address] Phone #: ext- [phone] 06/16/2020 22:13 Patient: SCARLET SOLOMON Sex: F : 2000 Age: 20yHome careFollow these tips to take care of yourself at home: If you feel warm, check your temperature. Dress in light clothing. This will help you lose extra body heat through your skin. The fever will go up if you wear extra layers or wrap in blankets. Fever causes your body to lose water through evaporation. Drink plenty of fluids. These include water, juice, clear sodas, anthony soha, or lemonade.Fever medicinesYou can take acetaminophen every 4 to 6 hours if: You feel very uncomfortable Your oral temperature is 100.4F (38C) or higherIf you can't take or keep down oral medicine, ask your pharmacist for acetaminophen suppositories.You don't need a prescription for these.If the fever doesn't get better within 1 hour after you take acetaminophen, take ibuprofen. If thisworks, keep taking the ibuprofen every 6 to 8 hours.If you have chronic liver or kidney disease, talk with your healthcare provider before taking thesemedicines. Also talk with your provider if you ever had a stomach ulcer or GI (gastrointestinal)bleeding.If either medicine alone doesn't keep the fever down, you may switch off between the 2 medicinesevery 3 to 4 hours. But do this only if your healthcare provider has told you to. For example, takeibuprofen. Wait 3 hours. Then take acetaminophen. Wait 3 hours. Take ibuprofen, and so on. Followyour provider's instructions exactly.Don't give aspirin to anyone younger than age 19 who is ill with a fever. Aspirin can cause seriousside effects such as liver damage and Av syndrome. Although rare, Av syndrome is a veryserious illness usually found in children younger than age 15. The syndrome is closely linked to theuse of aspirin or aspirin-containing medicine during viral infection.Follow-up careFollow up with your healthcare provider if you don't get better after 48 hours.When to seek medical adviceCall your healthcare provider right away if any of these occur: [address] [facility] Emergency Department [address] [place] [address] Phone #: ext- [phone] 06/16/2020 22:13 Patient: SCARLET SOLOMON Sex: F : 2000 Age: 20y Fever, as directed by your healthcare provider, or: o Fever of 100.4F (38C) or above lasting for 24 to 48 hours o Fever lasting more than 3 days, even without other symptoms o Fever that happens after visiting a foreign country o Fever that happens within a month after visiting a country with malaria. Malaria is a serious illness. A fever can still be malaria even if you took medicine to prevent it. The medicine does not work in all cases. Confusion or trouble thinking Headache or stiff neck Flat, small, purplish red spots on your skin Low blood pressure Fast heart rate Fast (rapid) breathing You are You just had surgery, another medical procedure, or were just discharged from the hospital Use of medicines that suppress the immune system (immunosuppressants). These include Prednisone, cancer medicines, and organ transplant rejection medicines. If you are not sure about whether your medicines suppress your immune system, ask your healthcare provider.Call [phone] should call 911 if you: Are having trouble breathing or shortness of breath Are unresponsiveImportant reminderCall your healthcare provider if you get a fever after visiting a place where infectious diseases arecommon. Many people apple picker a cold or other virus while traveling. This usually goes away without aproblem. But, some places have more serious diseases. Fever with certain other symptoms maymean you have a serious illness. Symptoms to watch for include diarrhea, skin rashes, insect bites,and skin boils, or infections. Your provider may ask you: What you did on your trip [address] [facility] Emergency Department [address] [place] [address] Phone #: ext- [phone] 06/16/2020 22:13 Patient: SCARLET SOLOMON Sex: F : 2000 Age: 20y How long you were there Where you stayed (hotel, [place] house, tent) What you ate and drank If you were bitten by insects or other bugs If you swam in freshwater If you had sex or got a tattoo or piercing while you were thereCheck the [facility] to get more information about specific infectious diseases in the areas you havetraveled. [phone] [employer]. [address] [place] [address]. All rights reserved. This information is not intended as asubstitute for professional medical care. Always follow your healthcare professional's instructions. You have been given the following additional information: Pyelonephritis, Female (Adult) Fever Control (Adult) Return to work in three days.(Electronically signed by Benedict Hernandez M.D. 06/17/2020 04:42) Name Value Range Interpretation Code Description Data Shira rce(s) Supporting Document(s) ID Date Data Source [id number] 06/16/2020 10:19:[address] [facility] 1 Clinical Report - Nurses [facility] Emergency Department [address] [place] [address] Phone #: ext- [phone] 06/16/2020 22:13 Patient: SCARLET SOLOMON Sex: F : 2000 Age: 20yTRIAGEArrived by private vehicle. Historian: patient.Acuity: LEVEL 3.Chief Complaint: FEVER, SORE THROAT, COUGH, NAUSEA, VOMITING, DIARRHEA, ABDOMINALPAIN and BACK PAIN.Alert.Onset. 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 Seen within the last 24 hours in a clinic; labs done; treatment- other medication. ([facility] [place] [facility] and abominal pain. She was testedfor strep but she said she does not have those results yet. She was precribed pseuodephed and zofran.SHe says she was told she did not need to be tested for covid.).SEBASTIAN COMA SCORE: 15- eyes open- spontaneous (4); best verbal response- oriented (5); bestmotor response- obeys commands (6). --22:28 06/16/20 Mary Lemon R.N.22:14 06/16/20. BP: 132/65. MAP: 87. HR: 84. RR: 18. O2 saturation: 99%. Temp: 98.6 F. Pain level now:12/22. --22:28 06/16/20 Mary Lemon R.N.Weight: 86.1 kg stated. Height/Length: 66 inches Per Patient. BMI: 30.7. --22:25 06/16/20 Mary Lemon R.N.MedicationsZoloft Oral. --22:20 06/16/20 Mary Lemon R.N. Cetirizine HCl Oral (Tablet 10 mg), daily. --22:20 06/16/20 Mary Lemon R.N. ARIPiprazole (sensor) Oral (Tablet 2 mg), at bedtime. --22:06/16/20 Mary Lemon R.N. Ondansetron Oral (Tablet Disintegrating 4 mg) 1 tablet, daily. --22:06/16/20 Mary Lemon R.N. Sertraline HCl Oral (Tablet 100 mg), daily. --22:06/16/20 Mary Lemon R.N. Pseudoephedrine HCl Oral (Tablet 60 mg), q6h as needed. --22:06/16/20 Mary Lemon R.N.AllergiesNone. --:06/16/20 Mary Lemon R.N.HistoryPAST MEDICAL HX: Immunizations: up-to-date. Last normal menstrual period- 3 months ago, patient onnexplanon. Denies current .SOCIAL HX: Never smoker. No alcohol use or drug use. She was offered HIV testing but declined andhepatitis C testing but declined. She has not traveled outside the [place] 2 Clinical Report - Nurses [facility] Emergency Department [address] [place] [address] Phone #: ext- [phone] 06/16/2020 22:13 Patient: SCARLET SOLOMON Sex: F : 2000 Age: 20y Infectious disease exposure: No infectious disease exposure. The patient wa s not exposed to C-diff, MRSA, VRE, CRE or Coronavirus. SELF HARM ASSESSMENT: Self harm assessment was performed. The patient answered "no" to the question(s) "Have you recently felt down, depressed, or hopeless?", "Do you have thoughts of harming or killing yourself?", "Do you have a plan for harming or killing yourself?", "Have you recently had thoughts about harming or killing others?", "Do you have any dangerous items in your possession?", "Have you noticed less interest or pleasure in doing things?", "Are you here because you tried to hurt yourself?" and "Have you ever tried to hurt yourself before today?". ABUSE ASSESSMENT: No report of abuse. NUTRITIONAL RISK ASSESSMENT: The nutritional risk assessment revealed no deficiencies. FUNCTIONAL ASSESSMENT: Functional assessment: no impairments noted. LEARNING NEEDS ASSESSMENT: The learning needs assessment revealed no barriers. FALL RISK ASSESSMENT: Fall risk assessment completed. No risk factors identified. SKIN INTEGRITY ASSESSMENT: Skin integrity risk assessment completed. No skin integrity risk identified. --22:28 06/16/20 Mary Lemon R.N.PHYSICAL ASSESSMENT( Pt reports fevers at home, lower back pain, congestion, N/V and abdominal pain x 1 week. Seen on posttoday. Remains in NAD, VSS, afebrile. No congestion noted, turgor normal, respirations unlabored, noactive vomiting, abdomen soft, nontender.).GENERAL / NEURO / PSYCH: Alert. Oriented X 4. Appears in no acute distress.HEENT: Pupils equal, round and reactive to light. No facial asymmetry noted.RESPIRATORY: Respirations not labored. Chest nontender. Breath sounds within normal limits.CVS: Capillary refill less than 2 seconds. Pulses within normal limits.GI / : Abdomen soft and nontender and normal bowel sounds.SKIN: Skin intact. Skin is warm and dry. Normal skin turgor. --23:05 06/16/20 Miri Whitehead R.N.NURSING PROGRESS NOTES22:57 06/16/2020 Site #1 started via IV in the left antecubital space with an 20g angiocath, with aseptictechnique; one attempt. Blood drawn: rainbow set. Sent to the lab. --22:57 06/16/20 Beth Cuellar R.N. 22:57 06/16/2020 Zofran (Ondansetron HCl) IVP 4 mg given via site #1. Allergies verified and confirmed 5 rights. IV patency established. IV site checked: no pain, redness, or swelling. IV flushed thoroughly pre- and post-medication administration. IVP given by RN. Information reviewed with patient. Verbalizes understanding. --22:57 06/16/20 Beth Cuellar R.N. 3 [facility] [place] [address] Phone #: ext- [phone] 06/16/2020 22:13 Patient: SCARLET SOLOMON Sex: F : 2000 Age: 20y 22:57 06/16/2020 Toradol (Ketorolac Tromethamine) IVP 15 mg given via site #1. Allergies verified and confirmed 5 rights. IV patency established. IV site checked: no pain, redness, or swelling. IV flushed thoroughly pre- and post- medication administration. IVP given by RN. Information reviewed with patient. Verbalizes understanding. --22:58 06/16/20 Beth Cuellar R.N. 22:58 06/16/2020 Started bag #1 1000 mL IV Fluids Sodium Chloride; bolus of 1000 mL wide open via site #1 via IV pump. Allergies verified and confirmed 5 rights. IV patency established. IV site checked: no pain, redness, or swelling. IV flushed thoroughly pre- and post-medication administration. Information reviewed with patient. Verbalizes understanding. --22:58 06/16/20 Beth Cuellar R.N. Patient ID band checked for patient name and birthdate: patient confirmed. Blood samples drawn from the left antecubital space peripheral IV site by nurse per protocol ; labeled in presence of the patient and sent to lab: green, purple and tiger top. --23:06 06/16/20 Miri Whitehead R.N. 23:37 06/16/2020 Started 1 gm of CEFTRIAXONE (1GM/50ML) IVPB in bag #1 50 mL; at 100 mL/hr over 30 minute(s) via site #1. via IV pump. Allergies verified and confirmed 5 rights. IV patency established. IV site checked: no pain, redness, or swelling. IV flushed thoroughly pre- and post-medication administration. Information reviewed with patient including reason for taking this medication, signs of allergic reaction and precautions. Verbalizes understanding. --23:37 06/16/20 Miri Whitehead R.N. Reassurance given. The patient reports no complaints and she is calm and resting quietly. Call light placed in reach. Bed placed in lowest position. Brakes of bed on. --00:17 06/17/20 Miri Whitehead R.N. 23:58 06/16/2020 IV Fluids Sodium Chloride via IV site #1 Discontinued: bag #1 completed. Total amount infused: 1000 ml mL. IV patency established. IV site checked: no pain, redness, or swelling. IV flushed thoroughly. --00:58 06/17/20 Miri Whitehead R.N. 00:58 06/17/2020 CEFTRIAXONE (1GM/50ML) IVPB via IV site #1 Discontinued: bag #1 completed. Total amount infused: 50 mL. IV patency established. IV site checked: no pain, redness, or swelling. IV flushed thoroughly. --00:58 06/17/20 Miri Whitehead R.N. The patient reports no complaints and she is resting quietly. Overall patient status- she states feels better. Patient waiting for CT results and disposition. --00:59 06/17/20 Miri Whitehead R.N. 01:15 06/17/2020 Levofloxacin PO Tablets 500 mg given. Allergies verified and confirmed 5 rights. Information reviewed with patient including reason for taking this medication, signs of allergic reaction and precautions. Verbalizes understanding. --01:25 06/17/20 Miri Whitehead R.N. 01:15 06/17/2020 Pyridium (Phenazopyridine HCl) PO Tablets 200 mg given. Allergies verified and confirmed 5 rights. Information reviewed with patient including reason for taking this medication, signs of allergic reaction and precautions. Verbalizes understanding. --01:25 06/17/20 Miri Whitehead R.N.DISPOSITION / DISCHARGE 01:20 06/17/20. Condition at departure: stable. No learning barriers present. Discharge instructions 4 Clinical Report - Nurses [facility] Emergency Department [address] [place] [address] Phone #: ext- [phone] 06/16/2020 22:13 Patient: SCARLET SOLOMON Sex: F : 2000 Age: 20y provided and reviewed with the patient. Reviewed medication(s) side effects, precautions, dosing and course information. Prescription(s) sent electronically to pharmacy. Work note given. Patient verbalized understanding. Written instructions provided in Sri [place]ankan. The patient was discharged by the physician. She was discharged home. She left ambulatory and via private vehicle. Patient driving. --:06/17/20 Miri Whitehead R.N. 01:20 06/17/20. BP: 129/64. MAP: 85. HR: 81. RR: 16. O2 saturation: 99% on room air. Temp: deferred. Pain level now: 09/24. --:06/17/20 Miri Whitehead R.N. 01:20 06/17/2020 Site #1 removed upon discharge. Pressure dressing and bandage applied. --:06/17/20 Miri Whitehead R.N.Locked/Released at 06/17/2020 01:28 by Miri Whitehead R.N. Name Value Range Interpretation Code Description Data Shira rce(s) Supporting Document(s) ID Date Data Source [id number] 06/16/2020 10:19:[address] [facility] 1 Clinical Report - Physicians/Mid Levels [facility] Emergency Department [address] [place] [address] Phone #: ext- [phone] 06/16/2020 22:13 Patient: SCARLET SOLOMON Sex: F : 2000 Age: 20y Time Seen: 22:29 06/16/2020; initial patient contact. Arrived- By private vehicle. Historian- patient. Disposition decision: 01:00 06/17/2020.HISTORY OF PRESENT ILLNESS Chief Complaint: ABDOMINAL PAIN and NAUSEA right back pain. This started 1 weeks ago and is still present. It was gradual in onset and has been intermittent. It is described as "pain" and it is described as located in the right flank and the right side of the back and right abdomen. At its maximum, severity described as severe and 8 / 10. When seen in the E.D., severity described as moderate and 5 / 10. Modifying factors- worsened by movement. Relieved by rest. The patient has had nausea. No loss of appetite, vomiting or diarrhea. No recent travel. Similar symptoms previously. Patient has had similar symptoms many times. ( has Hx of recurrent, chronic back pains; has had multiple ER visits for this here and for PN's). Recent medical care: The patient was seen recently by a health care provider. ( seen at clinic [place] post today for sore throat, cough; rapid strep done, not sure of results but given zofran and pseudoephredine, and has AB waiting for her at drug store (unknown reason)).REVIEW OF SYSTEMSNo constipation, black stools, hematemesis, difficulty with urination or pain with urination. No urinaryfrequency, bloody stools, fever, headache or blurred vision. No chest pain, difficulty breathing, cough,joint pain or skin rash. No chills. Denies current . The patient has had a mild sore throat butnot had weight loss. She has had mild lower back pain. No sensory loss or motor weakness. All othersystems reviewed and are negative.PAST HISTORYSee nurses notes. Problems: Gallstone(s). Abdominal Pain. Chronic Headache. Depression. Ureterolithiasis. UTI - Urinary Tract Infection. Pyelonephritis. Mesenteric Lymphadenitis. Nephropathy. 2 Clinical Report - Physicians/Mid Levels [facility] Emergency Department [address] [place] [address] Phone #: ext- [phone] 06/16/2020 22:13 Patient: SCARLET SOLOMON Sex: F : 2000 Age: 20y Additional Surgeries: Cholecystectomy. Medications: Pseudoephedrine HCl Oral (Tablet 60 mg), q6h as needed. Sertraline HCl Oral (Tablet 100 mg), daily. Ondansetron Oral (Tablet Disintegrating 4 mg) 1 tablet, daily. ARIPiprazole (sensor) Oral (Tablet 2 mg), at bedtime. Cetirizine HCl Oral (Tablet 10 mg), daily. Zoloft Oral. Allergies: None.SOCIAL HISTORYNever smoker. No alcohol use or drug use.ADDITIONAL NOTESThe nursing notes have been reviewed with agreement regarding the chief complaint, HPI, ROS, PMH andpatient medications and allergies.PHYSICAL EXAMVital Signs: 06/16/2020 22:14 BP: 132/65. MAP: 87. HR: 84. RR: 18. O2 saturation: 99%. Temp: 98.6 F.Pain level now: 5/10. Have been reviewed. Oxygen saturation normal.Appearance: Alert. Oriented X3. No acute distress.Eyes: Pupils equal, round and reactive to light. Eyes normal inspection.ENT: Ears normal. Nose normal. Pharynx normal. No nasal discharge, pharyngeal erythema ortonsillar exudate.Neck: Normal inspection. Neck supple.CVS: Normal heart rate and rhythm. Heart sounds normal. Pulses normal.Respiratory: No respiratory distress. Painless inspiration. Breath sounds normal. Chest nontender.Abdomen: Soft. Mild tenderness in the right side of the abdomen and right lower quadrant. No guardingor rebound tenderness. Bowel sounds normal. No organomegaly. No mass. Femoral pulses equal.Mildly obese.Back: Normal inspection. Moderate CVA tenderness on the right.Skin: Skin warm and dry. Normal skin color. No rash. Normal skin turgor.Extremities: Extremities exhibit normal ROM. No lower extremity edema.Neuro: Oriented X 3. No motor deficit. No sensory deficit. Reflexes normal.LABS, X-RAYS, AND EKGAbdominal CT: REPORT SUBMISSION DATE: Jun 17, 2020 12:56:41 AM EST NAME: SCARLET SOLOMON STUDY INITIATED: Jun 16, 2020 11:30:02 PM EST 3 Clinical Report - Physicians/Mid Levels [facility] Emergency Department [address] [place] [address] Phone #: ext- [phone] 06/16/2020 22:13 Patient: SCARLET SOLOMON Sex: F : 2000 Age: 20yMRN: [id number] STUDY RECEIVED:Jun 17, 2020 12:08:14 AM ESTGENDER: F MODALITY TYPE:CT\\SRDOB: [birth year] DESCRIPTION: CT ABD PELVIS W/ IV ONLYINSTITUTION: [facility] ORDERING PHYSICIAN: Benedict Soler #: [id number] HISTORY: RLQ, rt abdomen pain, infected urine. Accumulated DLP-1086.3 mGy*cm,Estimated DLP-1079.3 mGy*cm. [id number], 75mL, A0S01 7DA, 01/04. Neg Beta. BUN-13, Createnine-.7, GFR>60. Time Out performed. Correct patient with 2 identifiers, type and amount of contrast used, correct bodypart and side all verified prior to examination. - RLB (Hx) / SAGITTAL (DICOM Hx)CT Abdomen/PelvisHistory:RLQ, rt abdomen pain, infected urine. Accumulated DLP- 1086.3 mGy*cm, Estimated DLP-1079.3mGy*cm. [id number], 75mL, [id number], 01/04. Neg Beta. BUN-13, Createnine-.7, GFR >60. Time Outperformed. Correct patient with 2 identifiers, type and amount of contrast used, correct body part and sideall verified prior to examination. - RLB (Hx) / SAGITTAL (DICOM Hx)Technique:CT ABD PELVIS W/ IV ONLYDose length product (mGy-cm): Not providedReformations: NoneContrast: With; ISO 370, 75mL.Comparison:CT\\WV\\SR - CT ABD PELV W/O ORAL W/O IV - 05/16/2020 10:10 AM EDTFindings:Normal bilateral kidney appearance is noted.No nephrolithiasis or obstructive uropathy is noted bilaterally.Partially decompressed bladder noted which limits evaluation. No distinct bladder stone identified.There is enlargement of the appendix to 7 mm without periappendiceal inflammation. There is no abscessformation. There is no free air.There is no appendicolith noted.The exam demonstrates a cholecystectomy.There is normal appearing stomach, liver, pancreas and bilateral adrenal glands.Normal appearing spleen is noted.Unremarkable aorta is noted.Normal appearing uterus is identified.Normal appearing ovaries are noted.Visualized lungs are grossly normal. 4 Clinical Report - Physicians/Mid [facility] Emergency Department [address] [place] [address] Phone #: ext- [phone] 06/16/2020 22:13 Patient: SCARLET SOLOMON Sex: F : 2000 Age: 20yNo aggressive bone lesion.ImpressionNormal-appearing kidneys. No definitive polynephritis by CT. Partially decompressed bladder noted whichlimits evaluation. Cystitis or bladder masses are not excluded.The exam demonstrates a prominent appendix. I suspect this is likely a normal variant change based onappearance but if clinical suspicion is high for acute appendicitis then consider surgical consultation forfurther evaluation.Cholecystectomy is noted.Electronically signed on Jun 17, 2020 12:56:41 AM EST by:Jack Piña, [place] [employer]. Study type: abdomen and pelvis. Abdominal CT performedwith IV contrast. The study was interpreted by the radiologist.Laboratory Tests: Laboratory tests have been ordered, with results reviewed and considered in themedical decision making process.CT Abd PEL W/ IV Contrast Only: (STELLA: 06/16/2020 23:30) ( MsgRcvd 06/17/2020 00:57) FinalresultsCT ABDReason(s): RLQ, rt abdomen pain, infected urineTRANSPORTATION: WC IV? IV?(Yes) O2? Oxygen?(No) Ro Exam CT ABD //T// PELVIS W/ IV ONLY [facility] [address] [place] [address] ---------NAME--------- NUMBER SEX AGE ADMIT DISC. XRAY# F/C TYPE JUANITO Waddell [id number] 06/16/[id number] SB4 E/R DATE OF : 2000 M/R# [id number] PH#: [phone] TR-06 LOCATION: EMERGENCY DEPT TRANSCRIBED: 06/17/[address] ABD //T// PELVIS W/ IV ONLY [id number] COMPLETED:06/17/20 57 axel 77730 Reason(s): RLQ, rt abdomen pain, infected urine PHYSICIAN: DAVID LESLY R A D I O L O G Y R E P O R T PATIENT HISTORY: RLQ, rt abdomen pain, infected urine. Accumulated DLP-1086.3 mGy*cm, Estimated DLP-1079.3 mGy*cm. [id number], 75mL, [id number], 01/04. Neg Beta. BUN-13, Createnine-.7, GFR >60. Time Out performed. Correct patient with 2 identifiers, type and amount of contrast used, correct body part and side all verified prior to examination. - RLB / SAGITTAL (DICOM Hx) CT Abdomen/Pelvis History: RLQ, rt abdomen pain, infected urine. Accumulated DLP-1086.3 mGy*cm, Estimated DLP-1079.3 mGy*cm. SUN537, 75mL, [id number], 01/04. Neg Beta. BUN-13, 5 Clinical Report - Physicians/Mid Levels [facility] Emergency Department [address] [place] [address] Phone #: ext- [phone] 06/16/2020 22:13 Patient: SCARLET SOLOMON Sex: F : 2000 Age: 20y Createnine-.7, GFR >60. Time Out performed. Correct patient with 2 identifiers, type and amount of contrast used, correct body part and side all verified prior to examination. - RLB (Hx) / SAGITTAL (DICOM Hx) Technique: CT ABD //T// PELVIS W/ IV ONLY Dose length product (mGy-cm): Not provided Reformations: None Contrast: With; ISO 370, 75mL. Comparison: CT Findings: Normal bilateral kidney appearance is noted. No nephrolithiasis or obstructive uropathy is noted bilaterally. Partially decompressed bladder noted which limits evaluation. No distinct bladder stone identified. There is enlargement of the appendix to 7 mm without periappendiceal inflammation. There is no abscess formation. There is no free air. There is no appendicolith noted. The exam demonstrates a cholecystectomy. There is normal appearing stomach, liver, pancreas and bilateral adrenal glands. Normal appearing spleen is noted. Unr emarkable aorta is noted. Normal appearing uterus is identified. Normal appearing ovaries are noted. Visualized lungs are grossly normal. No aggressive bone lesion. IMPRESSIONS: Normal-appearing kidneys. No definitive polynephritis by CT. Partially decompressed bladder noted which limits evaluation. Cystitis or bladder masses are not excluded. The exam demonstrates a prominent appendix. I suspect this is likely a normal variant change based on appearance but if clinical suspicion is high for acute appendicitis then consider surgical consultation for further evaluation. Cholecystectomy is noted. While performing the above CT examination, radiation dose reduction was accomplished utilizing automated exposure control, adjusting of the mA and kV based on the patient's body size and/or the use of imperative reconstructive techniques. Electronically Signed By: Sawyer Jesus M.D. , Radiologist Date/Time: 06/17/20 00:56CBC w Diff: (STELLA: 06/16/2020 22:50) ( MsgRcvd 06/16/2020 23:04) Final results Test Result Flag Units (Reference) CBC W/AUTOMATED DIFF COMPLETE BLOOD COUNT WBC 12.2 H 10/uL (4.2 - 11.0) RBC 4.63 10/uL (4.20 - 5.40) HEMOGLOBIN 13.9 g/dL (12.0 - 16.0) 6 Clinical Report - Physicians/Mid Levels [facility] Emergency Department [address] [place] [address] Phone #: ext- [phone] 06/16/2020 22:13 Patient: SCARLET SOLOMON Sex: F : 2000 Age: 20y HEMATOCRIT 41.0 % (37.0 - 47.0) MCV 88.6 fL (81.0 - 101) MCH 30.0 pg (27.0 - 34.0) MCHC 33.9 g/dL (31.0 - 36.0) RDW 11.5 % (11.5 - 14.5) PLATELETS 349 10/uL (150 - 450) MPV 8.4 fL (7.4 - 10.4) NEUT 67.8 % (37.0 - 80.0) LYMPH 24.5 L % (25.0 - 40.0) MONO 6.4 % (3.0 - 8.0) EOS 0.6 % (0.0 - 7.0) BASO 0.2 % (0.0 - 2.5) %IG 0.5 H % (0.0 - 0.0) %NRBC 0.0 % (0.0 - 0.0) #NEUT 8.27 H 10/uL (2.00 - 6.90) #LYMPH 2.98 10/uL ( 0.60 - 3.40) #MONO 0.78 10/uL (0.00 - 0.90) #EOS 0.07 10/uL (0.00 - 0.70) #BASO 0.02 10/uL (0.00 - 0.20) #IG 0.06 10/uL (0.00 - 0.10) #NRBC 0.00 10/uL (0.00 - 0.00) MANUAL DIFF NOT INDICATED RBC MORPH NOT INDICATEDCMP: (STELLA: 06/16/2020 22:50) ( MsgRcvd 06/16/2020 23:21) Final results Test Result Flag Units (Reference) COMPREHENSIVE METABOLIC PANEL COMPREHENSIVE METABOLIC PANEL SODIUM 135 mEq/L (134 - 153) POTASSIUM 3.9 mEq/L (3.6 - 5.0) CHLORIDE 100 mEq/L (98 - 107) CO2 28 MEQ/L (22 - 30) GLUCOSE 99 MG/DL (65 - 110) BUN 13 MG/DL (7 - 21) CREATININE 0.7 MG/DL (0.7 - 1.5) BUN/CREAT 19 (8 - 27) TOTAL PROTEIN 7.7 G/DL (6.3 - 8.2) ALBUMIN 4.3 G/DL (3.9 - 5.0) GLOBULIN 3.4 H GM/DL (2.4 - 3.2) A/G RATIO 1.3 (0.8 - 2.0) CALCIUM 9.3 MG/DL (8.4 - 10.2) TOTAL BILI <0.7 MG/DL (0.2 - 1.3) ALKALINE PHOS 107 U/L (38 - 126) SGOT/AST 23 U/L (5 - 40) SGPT/ALT 20 U/L (7 - 56) ANION GAP 7.0 L mmol/L (8.0 - 16.0) AGE 20 yrs NON-AA GFR >60 mL/min AFR AMER GFR >60 mL/min Male GFR Interprentation 20-49 yrs >60 mL/min Dhttoj18-41 yrs >56 mL/min Normal 60-69 yrs >49 mL/min Normal 70-79yrs>42 mL/min Normal 80 and above >35 mL/min Normal Female GFRInterpretation 20-39 yrs >60 mL/min Normal 40-49 yrs >58 mL/minNormal 50-59 yrs >51 mL/min Normal 60-69 yrs >45 mL/min Zuijcg28-86 yrs >39 mL/min Normal 80 and above >32 mL/min NormalLipase: (STELLA: 06/16/2020 22:50) ( MsgRcvd 06/16/2020 23:21) Final results Test Result Flag Units (Reference) 7 Clinical Report - Physicians/Mid Levels [facility] Emergency Department [address] [place] [address] Phone #: ext- [phone] 06/16/2020 22:13 Patient: SCARLET SOLOMON Sex: F : 2000 Age: 20y LIPASE 30 U/L (13 - 60) Urinalysis: (STELLA: 06/16/2020 22:50) ( MsgRcvd 06/16/2020 23:09) Final results Test Result Flag Units (Reference) URINALYSIS URINALYSIS SOURCE R COLOR yellow (NORMAL: Yello CLARITY cloudy (NORMAL: Clear SPEC GRAVITY 1.025 (1.001 - 1.030 pH 6 (5 - 9) GLUCOSE NORM (NORMAL: Negat BILIRUBIN NEG (NORMAL: Negat KETONE NEG (NORMAL: Negat PROTEIN 30 (NORMAL: Negat NITRITE NEG (NORMAL: Negat BLOOD 250 A (NORMAL: Negat LEUK EST 25 (NORMAL: Negat UROBILINOGEN 1 (less than 1.0 MICROSCOPIC See Below WBC 3 - 5 (NORMAL: NONE RBC 5 - 7 A (NORMAL: NONE EPITHELIAL MANY A (NORMAL: NONE BACTERIA 2+ MOD A (NORMAL: NONE MUCOUS 1+ (NORMAL: NONE CRYSTALS See Below CALCIUM OX Trace (NORMAL: NONE Beta-HCG, Qual Serum: (STELLA: 06/16/2020 22:50) ( MsgRcvd 06/16/2020 23:25) Final results Test Result Flag Units (Reference) HCG SERUM QUAL NEGATIVE (NORMAL: NEGAT HCG SERUM QL REENTER NEGATIVE (NORMAL: NEGAT { KIT LOT # [id number] ){ KIT EXP DATE 05-20-21 ){ PROCEDURAL CONTROL VALID ) Lactic Acid: (STELLA: 06/16/2020 22:50) ( MsgRcvd 06/16/2020 23:09) Final results Test Result Flag Units (Reference) LACTIC ACID 1.3 MMOL/L (0.2 - 2.2).PROGRESS AND PROCEDURESCourse of Care: 22:45 06/16/20. please note that pt has no URI, no cough, nml ENT exam, nml throat; pthas been here several times for chronic recurrent abdominal pain; pt has had multiple CT's; pt wassupposed to f/u w GI, but never did 23:30 06/16/20. workup all in and reviewed; pt has mild leukocytosis w pyelonephritis, but nml lactic; pt has RLQ and rt abdomen pain, must r/o appendicitis, even though I believe it's a PN, so we'll need to do CTAP w IV; will give Ceftriaxone IV meanwhile; pt is doing better, less pain 00:58 06/17/20. CTAP w IV results in and reviewed; basically w NAD, appendix seems enlarged but no 8 Clinical Report - Physicians/Mid Levels [facility] Emergency Department [address] [place] [address] Phone #: ext- [phone] 06/16/2020 22:13 [id number]: [facility] 2000 Age: 20y inflammation, no stone; pt will be treated for PN; pt feeling better, less pain; will d/c home w instructions; pt understands and agrees. Patient counseled in person regarding the patient's stable condition, test results, diagnosis and need for follow-up. Patient agrees with plan of care. Disposition: Condition: good and stable. Discharge decision based on the following: patient's condition is stable; patient's condition is improved; patient is ambulatory; patient is active; patient drinking fluids; patient eating; patient's pain is controlled; patient's exam is improved; no seriously abnormal test results; improving condition on multiple repeat evaluations; social support is good; transportation is available; follow-up is available; clinical impression is consistent with outpatient treatment.CLINICAL IMPRESSION Acute pyelonephritis Acute urinary tract infection with pyelonephritis. No hematuria.INSTRUCTIONS Alternate Tylenol (Acetaminophen) or Motrin (Ibuprofen) for fever, temperature greater than 101 degrees orally. Take according to label instructions. Return to work in three days. Drink plenty of fluids. Avoid alcohol. Avoid fatty, fried/greasy, lactose- containing (such as milk, cheese and ice cream), salty and spicy foods. No alcohol. Do not smoke. Warnings: Further evaluation is necessary. It is very important to follow up with a healthcare provider. GENERAL WARNINGS: Return or contact your physician immediately if your condition worsens or changes unexpectedly, if not improving as expected, or if other problems arise. SPECIFICALLY, return if you develop pain in the abdomen, pelvis, back or shoulder, fever, vomiting, the inability to keep fluids down, blood in vomitus, blood in diarrhea, fainting or lightheadedness. Your Current Medications: Your current home medications have been reviewed. CONTINUE TAKING THE FOLLOWING MEDICATIONS: ARIPiprazole (sensor) Oral : Tablet 2 mg, at bedtime. Cetirizine HCl Oral : Tablet 10 mg, daily. Ondansetron Oral : Tablet Disintegrating 4 mg, 1 tablet daily. Pseudoephedrine HCl Oral : Tablet 60 mg, q6h, prn. Sertraline HCl Oral : Tablet 100 mg, daily. Zoloft Oral. Prescription Medications: Cipro 500 mg tablet Take 1 tablet twice a day for 10 days -- Dispense 20 tablet. Refills: 0. Substitution 9 Clinical Report - Physicians/Mid Levels [facility] Emergency Department [address] [place] [address] Phone #: ext- [phone] 06/16/2020 22:13 [id number] Sex: [facility] : 2000 Age: 20y permitted. [facility] [id number] ; [place] [address]. . ibuprofen 600 mg tablet Take 1 tablet four times a day as needed for pain for 7 days -- Dispense 28 tablet. Refills: 0. Substitution permitted. [facility] [phone] ; [place] [address]. Phone: . Pyridium 100 mg tablet Take 1 tablet three times a day for 5 days -- Dispense 15 tablet. Refills: 0. Substitution permitted. [facility] [phone] ; [place] [address]. . Follow-up: Return to the emergency department as needed. Follow up with your healthcare provider in two days even if well. Reason for referral: evaluation and treatment. Summary of care provided to patient via paper. Understanding of the discharge instructions verbalized by patient. Expected course of illness, discharge instructions, activity level, diet, prescriptions x3, follow-up appointment and risks and benefits of treatment reviewed with patient and understanding verbalized. Agrees to plan of care.(Electronically signed by Benedict Hernandez M.D. 06/17/2020 04:42) Name Value Range Interpretation Code Description Data Shira rce(s) Supporting Document(s) ID Date Data Source [id number] 06/17/2020 12:56:00 AM [facility] [address] [place] [address] ---------NAME--------- NUMBER SEX AGE ADMIT DISC. XRAY# F/C TYPE JUANITO Waddell [id number] 06/16/[id number] SB4 E/R DATE OF : 2000 M/R# [id number] PH#: [phone] TR-06 LOCATION: EMERGENCY DEPT TRANSCRIBED: 06/17/[address] ABD //T// PELVIS W/ IV ONLY [id number] COMPLETED:06/17/20 57 axel [address]6559 Reason(s): RLQ, rt abdomen pain, infected urine PHYSICIAN: DAVID GRACE == R A D I O L O G Y R E P O R T PATIENT HISTORY:RLQ, rt abdomen pain, infected urine. Accumulated DLP-1086.3 mGy*cm, EstimatedDLP-1079.3 mGy*cm. HIQ995, 75mL, [id number], 01/04. Neg Beta. BUN-13,Createnine-.7, GFR >60.Time Out performed. Correct patient with 2 identifiers, type and amount ofcontrast used, correct body part and side all verified prior to examination. -RLB / SAGITTAL (DICOM Hx)CT Abdomen/PelvisHistory:RLQ, rt abdomen pain, infected urine. Accumulated DLP-1086.3 mGy*cm, EstimatedDLP-1079.3 mGy*cm. VBC319, 75mL, [id number], 01/04. Neg Beta. BUN-13,Createnine-.7, GFR >60. Time Out performed. Correct patient with 2 identifiers,type and amount of contrast used, correct body part and side all verified priorto examination. - RLB (Hx) / SAGITTAL (DICOM Hx)Technique:CT ABD //T// PELVIS W/ IV ONLYDose length product (mGy-cm): Not providedReformations: NoneContrast: With; ISO 370, 75mL.Comparison: CTFindings:Normal bilateral kidney appearance is noted.No nephrolithiasis or obstructive uropathy is noted bilaterally.Partially decompressed bladder noted which limits evaluation. No distinctbladder stone identified.There is enlargement of the appendix to 7 mm without periappendicealinflammation. There is no abscess formation. There is no free air.There is no appendicolith noted.The exam demonstrates a cholecystectomy.There is normal appearing stomach, liver, pancreas and bilateral adrenal glands.Normal appearing spleen is noted.Unremarkable aorta is noted.Normal appearing uterus is identified.Normal appearing ovaries are noted.Visualized lungs are grossly normal.No aggressive bone lesion.IMPRESSIONS:Normal-appearing kidneys. No definitive polynephritis by CT. Partiallydecompressed bladder noted which limits evaluation. Cystitis or bladder massesare not excluded.The exam demonstrates a prominent appendix. I suspect this is likely a normalvariant change based on appearance but if clinical suspicion is high for acuteappendicitis then consider surgical consultation for further evaluation.Cholecystectomy is noted.While performing the above CT examination, radiation dose reduction wasaccomplished utilizing automated exposure control, adjusting of the mA and kVbased on the patient's body size and/or the use of imperative reconstructivetechniques.Electronically Signed By:Sawyer Jesus M.D. , RadiologistDate/Time: 06/17/20 00:56 Name Value Range Interpretation Code Description Data Shira rce(s) Supporting Document(s) ID Date Data Source [id number] 06/20/2020 11:44:[address] [facility] Name Value Range Interpretation Code Description Data Shira rce(s) Supporting Document(s) CULTURE URINE [facility] _CULTURE URINE_$$[id number]$$186006$$652145$$299308$$394221$$006352$$943268$$767858$$454153$$ 799417$$166404$$115527$$642663$$416795$$316793$$798249$$574975$$323176$$166823$$ 059109$$394946$$569003$$527144$$500054$$318274$$157267$$[id number] -- Continued on next page --Patient: JUANITO Waddell Order: [id number] Page 2Culture: CULTURE URINE Status: Final ==== -- Continued on next page --Patient: JUANITO NOVAK F Order: [id number] Page 2Culture: CULTURE URINE Status: Prelim =====$$[id number]$$[id number] DATE/TIME: 06/20/2020 11:06Culture: CULTURE URINE Status: FinalUrine Culture,Comprehensive: [id number] urogenital flora25,000-50,000 colony forming units per mL Previous result entered on 06/19/2020 02:03 ET Specimen has been received and testing has been initiated.P1 Test performed by: [facility] Michael GUAMAN #: [id number] [address] [place] [address] [id number] [facility] [address]as Director : Keith Hollis MD NPI #:[employer] : 06/19/20.0712.XMT.SENT REF 06/20/20.1144.XMT.SENT REF ID Date Data Source [id number] 06/16/2020 11:24:[address] [facility] Name Value Range Interpretation Code Description Data Shira rce(s) Supporting Document(s) HCG SERUM QUAL NEGATIVE NORMAL: NEGATIVE [facility] HCG SERUM QL REENTER NEGATIVE NORMAL: NEGATIVE [facility] { KIT LOT # [id number] ){ KIT EXP DATE 05-20-21 ){ PROCEDURAL CONTROL VALID ) ID Date Data Source [id number] 06/16/2020 11:21:[address] [facility] Name Value Range Interpretation Code Description Data Shira rce(s) Supporting Document(s) Lipase [Enzymatic activity/volume] in Serum or Plasma 30 U/L 13 - 60 [facility] ID Date Data Source [id number] 06/16/2020 11:21:00 PM [facility] Name Value Range Interpretation Code Description Data Shira rce(s) Supporting Document(s) COMPREHENSIVE METABOLIC PANEL [facility] COMPREHENSIVE METABOLIC PANEL Sodium [Moles/volume] in Serum or Plasma 135 mEq/L 134 - 153 [facility] Potassium [Moles/volume] in Serum or Plasma 3.9 mEq/L 3.6 - 5.0 [facility] Chloride [Moles/volume] in Serum or Plasma 100 mEq/L 98 - 107 [facility] Carbon dioxide, total [Moles/volume] in Serum or Plasma 28 MEQ/L 22 - 30 [facility] Glucose [Mass/volume] in Serum or Plasma 99 MG/DL 65 - 110 [facility] BUN 13 MG/DL 7 - [facility] Creat[facility] [Mass/volume] in Serum or Plasma 0.7 MG/DL 0.7 - 1.5 [facility] BUN/CREAT 19 8 - 27 [facility] Protein [Mass/volume] in Serum or Plasma 7.7 G/DL 6.3 - 8.2 [facility] Albumin [Mass/volume] in Serum or Plasma 4.3 G/DL 3.9 - 5.0 [facility] Globulin [Mass/volume] in Serum by calculation 3.4 GM/DL 2.4 - 3.[address] [facility] A/G RATIO 1.3 0.8 - 2.0 [facility] al Calcium [Mass/volume] in Serum or Plasma 9.3 MG/DL 8.4 - 10.2 [facility] Bilirubin.total [Mass/volume] in Serum or Plasma <0.7 MG/DL 0.2 - 1.3 [facility] Alkaline phosphatase [Enzymatic activity/volume] in Serum or Plasma 107 U/L 38 - 126 [facility] Aspartate aminotransferase [Enzymatic activity/volume] in Serum or Plasma 23 U/L 5 - 40 [facility] Alanine aminotransferase [Enzymatic activity/volume] in Seru m or Plasma 20 U/L 7 - 56 [facility] Anion gap 3 in Serum or Plasma 7.0 mmol/L 8.0 - 16.[address] [facility] AGE 20 yrs [facility] al NON-AA GFR >60 mL/min [facility] ital AFR AMER GFR >60 mL/min [facility] Ho spital Male GFR In terprentation 20-49 yrs >60 mL/min Normal 50-59 yrs >56 mL/min Normal 60-69 yrs >49 mL/min Normal 70-79yrs >42 mL/min Normal 80 and above >35 mL/min Normal Female GFR Interpretation 20-39 yrs >60 mL/min Normal 40-49 yrs >58 mL/min Normal 50-59 yrs >51 mL/min Normal 60-69 yrs >45 mL/min Normal 70-79 yrs >39 mL/min Normal 80 and above >32 mL/min Normal ID Date Data Source [id number] 06/16/2020 11:09:[address] [facility] Name Value Range Interpretation Code Description Data Shira rce(s) Supporting Document(s) Lactate [Moles/volume] in Serum or Plasma 1.3 MMOL/L 0.2 - 2.2 [facility] ID Date Data Source [id number] 06/16/2020 11:08:00 PM [facility] Name Value Range Interpretation Code Description Data Shira rce(s) Supporting Document(s) [facility] SOURCE R [facility] al COLOR yellow NORMAL: Yellow [facility] CLARITY cloudy NORMAL: Clear [facility] Specific gravity of Urine by Test strip 1.025 1.001 - 1.030 [facility] pH 6 5 - 9 [facility] Glucose [Mass/volume] in Urine by Test strip NORM NORMAL: Negat [facility] Bilirubin.total [Presence] in Urine by Test strip NEG NORMAL: Negative [facility] Ketones [Presence] in Urine by Test strip NEG NORMAL: Negative [facility] Protein [Mass/volume] in Urine by Test strip 30 NORMAL: Negat [facility] Nitrite [Presence] in Urine by Test strip NEG NORMAL: Negative [facility] BLOOD 250 NORMAL: Negative [facility] Leukocyte esterase [Presence] in Urine by Test strip 25 MAURIZIO L: Negative [facility] Urobilinogen [Mass/volume] in Urine by Test strip 1 less rocky n 1.0 mg/dL [facility] MICROSCOPIC See Below [facility] ital WBC 3 - 5 NORMAL: NONE SEEN [facility] Erythrocytes [#/volume] in Urine by Test strip 5 - 7 NORMAL: NON E SEEN A [facility] EPITHELIAL MANY NORMAL: NONE SEEN A [facility] Bacteria [Presence] in Urine sediment by Light microscopy 2+ MOD NORMAL: NONE SEEN A [facility] Mucus [Presence] in Urine sediment by Light microscopy 1+ NOR MAL: NONE SEEN [facility] Crystals [type] in Urine sediment by Light microscopy See Below [facility] CALCIUM OX Trace NORMAL: NONE SEEN [facility] ID Date Data Source [id number] 06/16/2020 11:04:[address] [facility] Name Value Range Interpretation Code Description Data Shira rce(s) Supporting Document(s) CBC W/AUTOMATED DIFF [facility] COMPLETE BLOOD COUNT Leukocytes [#/volume] in Blood by Automated count 12.2 10^3/uL 4.2 - 11.[address] [facility] Erythrocytes [#/volume] in Blood by Automated count 4.63 10^6/uL 4. 20 - 5.40 [facility] Hemoglobin [Mass/volume] in Blood 13.9 g/dL 12.0 - 16.0 [facility] Hematocrit [Volume Fraction] of Blood by Automated count 41.0 % 3 7.0 - 47.0 [facility] Erythrocyte mean corpuscular volume [Entitic volume] by Auto mated count 88.6 fL 81.0 - 101 [facility] Erythrocyte mean corpuscular hemoglobin [Entitic mass] by Automated count 30.0 pg 27.0 - 34.0 [facility] Erythrocyte mean corpuscular hemoglobin concentration [Mass/volume] by Automated count 33.9 g/dL 31.0 - 36.0 [facility] Erythrocyte distribution width [Ratio] by Automated count 11.5 % 11.5 - 14.5 [facility] Platelets [#/volume] in Blood by Automated count 349 10^3/uL 150 - [address] [facility] Platelet mean volume [Entitic volume] in Blood by Automated count 8.4 fL 7.4 - 10.4 [facility] Neutrophils/100 leukocytes in Blood by Automated count 67.8 % 37. 0 - 80.0 [facility] Lymphocytes/100 leukocytes in Blood by Manual count 24.5 % 25.0 - 40.[address] [facility] Monocytes/100 leukocytes in Blood by Automated count 6.4 % 3.0 - 8.0 [facility] Eosinophils/100 leukocytes in Blood by Automated count 0.6 % 0.0 - 7.0 [facility] Basophils/100 leukocytes in Blood by Automated count 0.2 % 0.0 - 2.5 [facility] %IG 0.5 % 0.0 - 0.0 H [facility] al %NRBC 0.0 % 0.0 - 0.0 [facility] al Neutrophils [#/volume] in Blood by Automated count 8.27 10^3/uL 2.00 - 6.[address] [facility] Lymphocytes [#/volume] in Blood by Automated count 2.98 10^3/uL 0.60 - 3.40 [facility] Monocytes [#/volume] in Blood by Automated count 0.78 10^3/uL 0.00 - 0.90 [facility] Eosinophils [#/volume] in Blood by Automated count 0.07 10^3/uL 0.00 - 0.70 [facility] Basophils [#/volume] in Blood by Automated count 0.02 10^3/uL 0.00 - 0.20 [facility] #IG 0.06 10^3/uL 0.00 - 0.10 [facility] #NRBC 0.00 10^3/uL 0.00 - 0.00 [facility] MANUAL DIFF NOT INDICATED [facility] RBC MORPH NOT INDICATED [facility] ID Date Data Source [id number] 05/19/2020 11:06:00 AM EDT [facility] [address] [place] [address] PHONE: [phone] FAX: [phone] Name .................. : JUANITO Waddell Acct Number.................. : [id number] ROOM. ................. : TR-06 Number ................... : [id number] Stay type ............. : E/R Discharge Date......... ... : 05/16/20 Admit Date ......... : 05/16/20 Admit Phys .................... : [facility] GABRIELLE Date of ....... : 2000 Family Phys ................... : UNKNOWN CO Phone .................. : [phone] Age ................................ : 20 Film# .................. .:[id number] Sex ................................. : F Unsigned transcriptions are preliminary reports and do not represent a medical or legal document CT ABD & PELV W/[place] OR[place] W/[place] [id number] COMPLETE:05/16/20 11:31 LANA [id number] Reason(s): Abdominal Pain CT SCAN OF THE ABDOMEN AND PELVIS WITHOUT CONTRAST: INDICATION: Abdominal pain. FINDINGS: The lung bases are clear. No focal infiltrate or consolidation is identified. No discrete nodule or mass is identified. The heart appears unremarkable. The liver, spleen, pancreas, adrenal glands and bilateral kidneys all appear unremarkable. The gallbladder is surgically absent. The enteric stru ctures appear unremarkable. Scattered mesenteric lymph nodes are identified suggesting mesenteric adenitis. The largest measures 8 mm. The appendix is visualized and appears unremarkable. No free fluid is identified. The urinary bladder is not well distended, but no gross abnormality is identified. The osseous structures show no acute findings. IMPRESSION: Mesenteric adenitis. Examination is otherwise unremarkable. While performing the above CT examination, radiation dose reduction was accomplished utilizing automated exposure control, adjusting of the mA and kV based on the patient's body size an d/or the use of imperative reconstructive techniques. CT dose: 1074.7 mGycm Examination dictated by EDIL Lewis. Examination was reviewed with Rahat Obando MD, radiologist at the time of this dictation. Electronically Reviewed and Signed By Rahat Obando MD , 05/19/20 11:06, KG Transcribe Initials: BENJAMIN , Transcribe Date: 05/16/20 12:18, Dictation Date: Page 1 of 2 [place] [address] PHONE: [phone] FAX: [phone] Name .................. : JUANITO Waddell Acct Number.................. : [id number] ROOM. ................. : TR-06 MR Number ................... : [id number] Stay type ............. : E/R Discharge Date......... ... : 05/16/20 Admit Date ......... : 05/16/20 Admit Phys .................... : STACYS GABRIELLE Date of ....... : 2000 Family Phys ................... : UNKNOWN CO Phone .................. : [phone] Age ....................... ......... : 20 Film# .................. .:[id number] Sex ................................. : F Unsigned transcriptions are preliminary reports and do not represent a medical or legal document CT ABD & PELV W/[place] ORAL W/[place] [id number] COMPLETE:05/16/20 11:31 LANA [id number] Reason(s): Abdominal Pain Copy for: EMERGENCY DEPT via mode Copy for: 710 MED REC DISCHARGED Page 2 of 2 Name Value Range Interpretation Code Description Data Shira rce(s) Supporting Document(s) ID Date Data Source [id number] 05/16/2020 09:17:[address] [facility] [address] [facility] Emergency Department [address] [place] [address] Phone #: ext- [phone] 05/16/2020 09:09 Patient: SCARLET SOLOMON Sex: F : 2000 Age: 20yWEIGHT:81.6 kg (S) HEIGHT:66 inches (S) BMI:29.0ALLERGIES: NoneCHIEF COMPLAINT: vomiting, diarrhea, nausea, abdominal cramps, abdominal painDIAGNOSIS: Mesenteric lymphadenitis, Urinary tract infectious disease, DiarrheaLAB ORDERSOrder Description Priority E ntered Acknowledged InitialedUrinalysis (Clean STAT 09:38 05/16/2020 09:57 Drea Ferrera Physician;CBC w Diff STAT 09:38 05/16/2020 09:39 Karma Eddy R.N. Physician;CMP STAT 09:38 05/16/2020 09:39 Karma Eddy R.N. Physician;Lipase STAT 09:38 05/16/2020 09:39 Karma Eddy R.N. Physician;Lactic Acid STAT 09:38 05/16/2020 09:39 Karma Eddy R.N. Physician;HCG Serum Qual STAT 09:38 05/16/2020 09:39 Karma Eddy R.N. Physician;GI 4 Panel 09:38 05/16/2020 09:57 Parth Ferrera Physician;DIAGNOSTIC STUDY ORDERSOrder Description Priority Entered Acknowledged InitialedCT ABD PEL W/O STAT 09:39 05/16/2020 09:39 Jenelle Eddy W/O IV Samir Poole R.N.Contrast Physician;(Oxygen?(No))(IV?(Yes)) NOTES: R flank pain Reason for Study: Abdominal Pain [address] [facility] Emergency Department [address] [place] [address] Phone #: ext- [phone] 05/16/2020 09:09 Patient: SCARLET SOLOMON Sex: F : 2000 Age: 20yMEDICATION/IV/DRIP/FLUID ORDERSOrder Description Priority Entered Acknowledged InitialedIV NS : Bolus 1000 09:39 05/16/2020 09:55 Surjit, JuliemL, then 125 mL/hr Samir Poole R.N.(can be titrated per Physician;additionalphysicianinstruction)Zofran 4 mg IVP X 1 09:40 05/16/2020 09:55 Bam Eddyiedose: 4 mg (NOW Samir Venerus R.N.x1) Physician;Protonix IVPB 40 09:40 05/16/2020 09:56 Karma Eddymg with Dextrose Samir Poole R.N.100 ml spike bag Physician;(D5W)GENERAL ORDERSOrder Description Priority Entered Acknowledged InitialedSaline Lock 09:39 05/16/2020 09:39 Karma Eddy R.N. Physician;Pulse oximeter 09:39 05/16/2020 09:39 Karma Eddy(Spot Check) Samir Poole R.N. Physician;[Electronically signed by Alfredo Enciso R.N. (11:45 05/16/2020)][Electronically signed by Samir Poole Physician (07:42 05/18/2020)][Electronically locked by Alfredo Enciso R.N. (11:45 05/16/2020)] Name Value Range Interpretation Code Description Data Shira rce(s) Supporting Document(s) ID Date Data Source [id number] 05/16/2020 09:17:[address] [facility] [address] [facility] Emergency Department [address] [place] [address] Phone #: ext- [phone] 05/16/2020 09:09 Patient: SCARLET SOLOMON Sex: F : 2000 Age: 20yWeight: 81.6 kgHeight/Length: 66 in.BMI: 29.0ALLERGIES: NoneThe patient's Home Medications are listed below:THE FOLLOWING MEDICATIONS NEED TO BE RECONCILED: Zoloft OralThe source(s) of the original Home Medication information:Not obtained.The following Medications were given to the patient in the Emergency Department:IV NS IV Fluids bolus 1000 mL over 1 hour(s), administered: 05/16/2020 9:55:00 AMZofran [IVP] IVP 4 mg, administered: 05/16/2020 9:55:00 AMProtonix [IVPB] IVPB bolus 0, then 40 mg 200 mL/hr, administered: 05/16/2020 9:56:00 AMThe following Medications were prescribed to the patient:Cipro 500 mg tablet Take 1 tablet twice a day for 7 days -- for UTI / diarrhea. Dispense 14 tablet. Refills:0. Substitution permitted.[facility] [phone] ; [place] [address]. .ibuprofen 800 mg tablet Take 1 tablet every eight hours as needed for 10 days -- for pain / fever.Dispense 30 tablet. Refills: 0. Substitution permitted.[facility] [address] ; [place] [address]. .Pyridium 200 mg tablet Take 1 tablet every eight hours for 2 days -- for cystitis / bladder spasm.Dispense 6 tablet. Refills: 0. Substitution permitted.[facility] [phone] ; [place] [address]. . -- Samir Poole, Physician [address] [facility] Emergency Department [address] [place] [address] Phone #: ext- [phone] 05/16/2020 09:09 Patient: SCARLET SOLOMON Sex: F : 2000 Age: 20y Name Value Range Interpretation Code Description Data Shira rce(s) Supporting Document(s) ID Date Data Source [id number] 05/16/2020 09:17:[address] [facility] [address] [facility] Emergency Department [address] [place] [address] Phone #: ext- [phone] 05/16/2020 09:09 Patient: SCARLET SOLOMON Sex: F : 2000 Age: 20yWeight: 81.6 kgHeight/Length: 66 inBMI: 29ALLERGIES: None Date/Time Medication Administered Medication OrderedStart IV NS IV NS : Bolus 1000 mL, then 47274:55 05/16/2020 Dose: IV Fluids mL/hr (can be titrated Karma Perez R.N. Bolus: 1000 mL over 1 hour(s) additional physician instruction)---- Dispensed: 1000 mL bagStop Site: #1 left AC11:44 05/16/2020Alfredo Enciso R.N.Given ZOFRAN [IVP] (ONDANSETRON HCL) Zofran 4 mg IVP X 1 dose: 4 mg09:55 05/16/2020 Dose: 4 mg IVP (NOW x1)Karma Eddy R.N. Site: #1 left ACStart PROTONIX [IVPB] (PANTOPRAZOLE Protonix IVPB 40 mg with09:56 05/16/2020 SODIUM) Dextrose 100 ml spike bag (D5W)Karma Eddy R.N. Dose: 40 mg IVPB---- Rate: 200 mL/hr over 15 minute(s)Stop Dispensed: 50 mL bag11:19 05/16/2020 Site: #1 left Alfredo East R.N. Name Value Range Interpretation Code Description Data Shira rce(s) Supporting Document(s) ID Date Data Source [id number] 05/16/2020 09:17:[address] [facility] [address] [facility] Emergency Department [address] [place] [address], [place] [address] Phone #: ext- [phone] 05/16/2020 09:09 Patient: SCARLET SOLOMON Sex: F : 2000 Age: 20yDiarrheaAcute mesenteric lymphadenitisAcute urinary tract infection with cystitis and hematuria. Not associated with indwelling catheter orobstruction.INSTRUCTIONSAlternate Tylenol (Acetaminophen) or Motrin (Ibuprofen) for temperature greater than 100.4 degrees bytympanic thermometer. Take according to label instructions. Do not work today, tomorrow.Drink plenty of fluids.Warnings: Further evaluation is necessary.GENERAL WARNINGS: Return or contact your physician immediately if your condition worsens orchanges unexpectedly, if not improving as expected, or if other problems arise.Prescription Medications:Cipro 500 mg tablet Take 1 tablet twice a day for 7 days -- for UTI / diarrhea. Dispense 14 tablet. Refills:0. Substitution permitted.[facility] [phone] ; [place] [address]. .ibuprofen 800 mg tablet Take 1 tablet every eight hours as needed for 10 days -- for pain / fever.Dispense 30 tablet. Refills: 0. Substitution permitted.[facility] [address] ; [place] [address]. .Pyridium 200 mg tablet Take 1 tablet every eight hours for 2 days -- for cystitis / bladder spasm.Dispense 6 tablet. Refills: 0. Substitution permitted.[facility] [address] ; [place] [address]. FaxNumber: .Understanding of the discharge instructions verbalized by patient.Follow-up with: [facility], , , [address] [place] [address], , [place], [address] Follow up Tuesday if not better. Call for an appointment. Reason for referral: evaluation, treatment andUTI / Mesenteric Adenitis / Diarrhea. [address] [facility] Emergency Department [address] [place] [address] Phone #: ext- [phone] 05/16/2020 09:09 Patient: SCARLET SOLOMON Sex: F : 2000 Age: 20y ADDITIONAL INFORMATIONMesenteric AdenitisThe mesentery is a sheet of tissue that attaches the intestines to the belly (abdominal) wall. Lymphnodes are small glands throughout the body. They are part of the system that fights infection.Mesenteric adenitis is swelling of the lymph nodes in the mesentery. It is also called mesentericlymphadenitis. The problem is caused by an infection, or an inflammatory condition, often of theintestines.Mesenteric adenitis can cause these symptoms: Severe pain in the abdomen, which can be all over Pain can be in the lower right side, sometimes mimicking appendicitis Nausea and vomiting Diarrhea Fever Loss of appetite MalaiseThis condition can be hard to diagnose because the pain is often not just in one spot. You may needtests for this reason. Sometimes, the pain shifts to the lower right part of your abdomen. When thishappens, it may seem like appendicitis. This is another reason for testing.The problem most often goes away in a few days. If you have a bacterial infection, you may need totake antibiotics. Medicines may also be given to help relieve pain until the problem calms down.Home care Your healthcare provider may prescribe medicines for pain, nausea, or infection. Follow the healthcare provider's instructions when using these medicines. If you are given medicine for infection, take all of it as directed until it is gone, even if you feel better. Rest until you feel better. To help relieve abdominal pain, soak a towel in warm water and place it on your belly. If you have had diarrhea or vomiting, follow the guidelines you are given for what to eat and drink and what to avoid. Drink plenty of fluids. [address] [facility] Emergency Department [address] [place] [address] Phone #: ext- [phone] 05/16/2020 09:09 Patient: SCARLET SOLOMON Sex: F : 2000 Age: 20y Don't smoke or drink alcohol.Follow-up careFollow up with your healthcare provider, or as advised. It is often very hard to tell mesenteric adenitisapart from appendicitis. So close follow-up is needed.If X-rays were done, a radiologist will look at them. You will be told if there are changes.Call [phone] if any of these occur: Trouble breathing Confusion Very drowsy or trouble awakening Fainting or loss of consciousness Rapid heart rate Chest painWhen to seek medical adviceCall your healthcare provider right away if any of these occur: Fever of 100.4F (38C) or higher, or as directed by your healthcare provider Pain not relieved with medicine, or pain that goes away and returns Pain that is getting worse over time or changing in location Pain that localizes to the right lower abdomen, and not improving or is worsening Severe diarrhea or vomiting Severe headache Few or no stools or gas Little or no urine Leg or foot cramps Small dark red dots on the skin Swelling in the abdomen [address] [facility] Emergency Department [address] [place] [address] Phone #: ext- [phone] 05/16/2020 09:09 Patient: SCARLET SOLOMON Sex: F : 2000 Age: 20y Bloody stools [id number] [place] [address]. All rights reserved. This information is not intended as asubstitute for professional medical care. Always follow your healthcare professional's instructions.Nonspecific Vomiting and Diarrhea (Adult)Vomiting and diarrhea can have many causes, including: Helping your body get rid of harmful substances Gastroenteritis caused by viruses, parasites, bacteria, or toxins. Allergy to or side effect of a food or medicine Severe stress or worry (anxiety) Other illnesses [address] [facility] Emergency Department [address] [place] [address] Phone #: ext- [phone] 05/16/2020 09:09 Patient: SCARLET SOLOMON Sex: F : 2000 Age: 20y PregnancyIt is often hard to pinpoint an exact cause, even with testing. Vomiting and diarrhea often go awaywithin a day or two without problems. If they continue, though, they can lead to too much loss of fluid(dehydration). This can be serious if not treated.Home careMedicines You may use acetaminophen or NSAID medicines like ibuprofen or naproxen to control fever, unless another medicine was prescribed. If you have chronic liver or kidney disease, talk with your healthcare provider before using these medicines. Also talk with your provider if you've had a stomach ulcer or gastrointestinal bleeding. Don't give aspirin to anyone under 18 years of age who is ill with a fever because it may cause severe disease or . Don't use NSAID medicines if you are already taking one for another condition (like arthritis) or are on aspirin (such as for heart disease or after a stroke) [id number] medicines for diarrhea, nausea, and vomiting are generally OK unless you have bleeding, fever, or severe abdominal pain.General care If symptoms are severe, rest at home for the next 24 hours, or until you are feeling better. Washing your hands with soap and water, or using alcohol-based hand experimental mechanic outboard motors is the best way to stop the spread of infection. Wash your hands after touching anyone who is sick. Wash your hands after using the toilet and before meals. Clean the toilet after each use. Dry your hands with a single use towel. Caffeine, tobacco, and alcohol can make the diarrhea, cramping, and pain worse. Remember, caffeine not only is in coffee, but also is in chocolate, some energy drinks, and teas.Diet Water and clear liquids are important so you don't get dehydrated. Drink a small amount at a time. Don't guzzle down the drinks. That may increase your nausea, make cramping worse, and cause the drinks to come back up. Sports drinks may also help if you are healthy and not too dehydrated. They have too much sugar and not enough electrolytes and can sometimes make things worse. Also, don't drink beverages that are too acidic, like orange juice and grape juice. If you are very dehydrated, commercially available products called oral rehydration solutions [address] [facility] Emergency Department [address] [place] [address] Phone #: ext- [phone] 05/16/2020 09:09 Patient: SCARLET SOLOMON Sex: F : 2000 Age: 20y are best.Food Don't force yourself to eat, especially if you have cramps, diarrhea, or vomiting. Eat just a little at a time, and then wait a few minutes before you try to eat more. Don't eat fatty, greasy, spicy, or fried foods. Don't eat dairy products if you have diarrhea. They can make it worse.During the first 24 hours (the first full day), follow the diet below: Beverages: Oral rehydration solutions, sports drinks, soft drinks without caffeine, mineral water, and decaffeinated tea and coffee Soups: Clear broth, consomm, and bouillon Desserts: Plain gelatin, popsicles, and fruit juice barsDuring the next 24 hours (the second day), you may add the following to the above if you are better. Ifnot, continue what you did the first day: Hot cereal, plain toast, bread, rolls, crackers Plain noodles, rice, mashed potatoes, chicken noodle or rice soup Unsweetened canned fruit (avoid pineapple), bananas Limit fat intake to less than 15 grams per day by avoiding margarine, butter, oils, mayonnaise, sauces, gravies, fried foods, peanut butter, meat, poultry, and fish. Limit fiber. Avoid raw or cooked vegetables, fresh fruits (except bananas) and bran cereals. Limit caffeine and chocolate. No spices or seasonings except salt.During the next 24 hours: Gradually resume a normal diet, as you feel better and your symptoms improve. If at any time your symptoms start getting worse again, go back to clear liquids until you feel better.Food preparation If you have diarrhea, you should not prepare food for others. When preparing foods, wash your hands before and after. Wash your hands or use alcohol-based experimental mechanic outboard motors after using cutting boards, countertops, and [address] [facility] Emergency Department [address] [place] [address] Phone #: ext- [phone] 05/16/2020 09:09 Patient: SCARLET SOLOMON Sex: F : 2000 Age: 20y knives that have been in contact with raw food. Dry your hands with a single use towel. Keep uncooked meats away from cooked and [id number] foods.Follow-up careFollow up with your healthcare provider, or as advised. Call if you don't get better in the next 2 to 3days. If a stool (diarrhea) sample was taken, or cultures done, you will be told if they are positive, or ifyour treatment needs to be changed. You may call as directed for the results.If X- rays were taken, you will be notified of any new findings that may affect your careCall 911Call 911 if any of these occur: Trouble breathing Chest pain Confusion Severe drowsiness or trouble awakening Fainting or loss of consciousness Rapid heart rate Seizure Stiff neck Severe weakness, dizziness, or lightheadednessWhen to seek medical adviceCall your healthcare provider right away if any of these occur: Bloody or black vomit or stools Severe, steady abdominal pain or any abdominal pain that is getting worse Severe headache or stiff neck An inability to hold down even sips of liquids for more than 12 hours Vomiting that lasts more than 24 hours [address] [facility] Emergency Department [address] [place] [address] Phone #: [phone] 05/16/2020 09:09 -- Patient: SCARLET SOLOMON Sex: F : 2000 Age: 20y Diarrhea that lasts more than 24 hours Fever of 100.4F (38.0C) or higher, or as directed by your healthcare provider Yellowish color to your skin or the whites of your eyes Signs of dehydration, such as dry mouth, little urine (less than every 6 hours), or very dark urine [id number] [employer]. [address] [place] [address], [place] [address]. All rights reserved. This information is not intended as asubstitute for professional medical care. Always follow your healthcare professional's instructions.Bladder Infection, Female (Adult)Urine is normally doesn't have any bacteria in it. But bacteria can get into the urinary tract from theskin around the rectum. Or they can travel in the blood from elsewhere in the body. Once they are inyour urinary tract, they can cause infection in the urethra (urethritis), the bladder (cystitis), or thekidneys (pyelonephritis).The most common place for an infection is in the bladder. This is called a bladder infection. This isone of the most common infections in women. Most bladder infections are easily treated. They arenot serious unless the infection spreads to the kidney.The phrases "bladder infection," "UTI," and "cystitis" are often used to describe the same thing. Butthey are not always the same. Cystitis is an inflammation of the bladder. The most common cause ofcystitis is an infection. [address] [facility] Emergency Department [address] [place] [address] Phone #: ext- [phone] 05/16/2020 09:09 Patient: SCARLET SOLOMON Sex: F : 2000 Age: 20ySymptomsThe infection causes inflammation in the urethra and bladder. This causes many of the symptoms.The most common symptoms of a bladder infection are: Pain or burning when urinating Having to urinate more often than usual Urgent need to urinate Only a small amount of urine comes out Blood in urine Abdominal discomfort. This is usually in the lower abdomen above the pubic bone. Cloudy urine Strong- or bad-smelling urine Unable to urinate (urinary retention) Unable to hold urine in (urinary incontinence) Fever Loss of appetite Confusion (in older adults)CausesBladder infections are not c ontagious. You can't get one from someone else, from a toilet seat, orfrom sharing a bath.The most common cause of bladder infections is bacteria from the bowels. The bacteria get onto theskin around the opening of the urethra. From there, they can get into the urine and travel up to thebladder, causing inflammation and infection. This usually happens because of: Wiping improperly after urinating. Always wipe from front to back. Bowel incontinence Procedures such as having a catheter inserted Older age [address] [facility] Emergency Department [address] [place] [address] Phone #: ext- [phone] 05/16/2020 09:09 Patient: SCARLET SOLOMON Sex: F : 2000 Age: 20y Not emptying your bladder. This can allow bacteria a chance to grow in your urine. Dehydration Constipation Sex Use of a diaphragm for controlTreatmentBladder infections are diagnosed by a urine test. They are treated with antibiotics and usually clear upquickly without complications. Treatment helps prevent a more serious kidney infection.MedicinesMedicines can help in the treatment of a bladder infection: Take antibiotics until they are used up, even if you feel better. It is important to finish them to make sure the infection has cleared. You can use acetaminophen or ibuprofen for pain, fever, or discomfort, unless another medicine was prescribed. If you have chronic liver or kidney disease, talk with your healthcare provider before using these medicines. Also talk with your provider if you've ever had a stomach ulcer or gastrointestinal bleeding, or are taking blood-thinner medicines. If you are given phenazopydridine to reduce burning with urination, it will cause your urine to become a bright orange color. This can stain clothing.Care and preventionThese self-care steps can help prevent future infections: Drink plenty of fluids to prevent dehydration and flush out your bladder. Do this unless you must restrict fluids for other health reasons, or your doctor told you not to. Proper cleaning after going to the bathroom is important. Wipe from front to back after using the toilet to prevent the spread of bacteria. Urinate more often. Don't try to hold urine in for a long time. Wear loose-fitting clothes and cotton underwear. Avoid tight-fitting pants. Improve your diet and prevent constipation. Eat more fresh fruit and vegetables, and fiber, and less junk and fatty foods. Avoid sex until your symptoms are gone. [address] [facility] Emergency Department [address] [place] [address] Phone #: ext- [phone] 05/16/2020 09:09 Patient: SCARLET SOLOMON Sex: F : 2000 Age: 20y Avoid caffeine, alcohol, and spicy foods. These can irritate your bladder. Urinate right after intercourse to flush out your bladder. If you use control pills and have frequent bladder infections, discuss it with your doctor.Follow-up careCall your healthcare provider if all symptoms are not gone after 3 days of treatment. This is especiallyimportant if you have repeat infections.If a culture was done, you will be told if your treatment needs to be changed. If directed, you cancall to find out the results.If X-rays were done, you will be told if the results will affect your treatment.Call [phone] if any of the following occur: Trouble breathing Hard to wake up or confusion Fainting or loss of consciousness Rapid heart rateWhen to seek medical adviceCall your healthcare provider right away if any of these occur: Fever of 100.4F (38.0C) or higher, or as directed by your healthcare provider Symptoms are not better by the third day of treatment Back or belly (abdominal) pain that gets worse Repeated vomiting, or unable to keep medicine down Weakness or dizziness Vaginal discharge Pain, redness, or swelling in the outer vaginal area (labia) [id number] [employer] [place] [address]. All rights reserved. This information is not intended as asubstitute for professional medical care. Always follow your healthcare professional's instructions. [address] [facility] Emergency Department [address] [place] [id number] Phone #: ext- [phone] 05/16/2020 09:09 Patient: SCARLET SOLOMON Sex: F : 2000 Age: 20yBlood in the UrineBlood in the urine (hematuria) has many possible causes. If it occurs after an injury (such as a caraccident or fall), it is most often a sign of bruising to the kidney or bladder. Common causes of bloodin the urine include urinary tract infections, kidney stones, inflammation, tumors, or certain otherdiseases of the kidney or bladder. Menstruation can cause blood to appear in the urine sample,although it is not coming from the urinary tract.If only a trace amount of blood is present, it will show up on the urine test, even though the urine maybe yellow and not pink or red. This may occur with any of the above conditions, as well as heavyexercise or high fever. In this case, your doctor may want to repeat the urine test on another day. Thiswill show if the blood is still present. If it is, then other tests can be done to find out the cause.Home careFollow these home care guidelines: If your urine does not appear bloody (pink, brown or red) then you do not need to restrict your activity in any way. If you can see blood in your urine, rest and avoid heavy exertion until your next exam. Do not use aspirin, blood thinners, or anti- platelet or anti-inflammatory medicines. These include ibuprofen and naproxen. These thin the blood and may increase bleeding. [address] [facility] Emergency Department [address] [place] [address] Phone #: ext- [phone] 05/16/2020 09:09 Patient: SCARLET SOLOMON Sex: F : 2000 Age: 20yFollow-up careFollow up with your healthcare provider, or as advised. If you were injured and had blood in yoururine, you should have a repeat urine test in 1 to 2 days. Contact your d octor for this test.A radiologist will review any X-rays that were taken. You will be told of any new findings that mayaffect your care.When to seek medical adviceCall your healthcare provider right away if any of these occur: Bright red blood or blood clots in the urine (if you did not have this before) Weakness, dizziness or fainting New groin, abdominal, or back pain Fever of 100.4F (38C) or higher, or as directed by your healthcare provider Repeated vomiting Bleeding from the nose or gums or easy bruising [id number] [employer]. [address] [place] [address], [place] [address]. All rights reserved. This information is not intended as asubstitute for professional medical care. Always follow your healthcare professional's instructions.Fever Control (Adult)A fever is a normal reaction of your body to an illness. The temperature itself usually isn't harmful. Itactually helps your body fight infections. You don't need to treat a fever unless you feel very uncomfortable.Home careFollow these tips to take care of yourself at home: If you feel warm, check your temperature. Dress in light clothing. This will help you lose extra body heat through your skin. The fever will go up if you wear extra layers or wrap in blankets. Fever causes your body to lose water through evaporation. Drink plenty of fluids. These include water, juice, clear sodas, anthony soha, or lemonade.Fever medicinesYou can take acetaminophen every 4 to 6 hours if: [address] [facility] Emergency Department [address] [place] [address] Phone #: ext- [phone] 05/16/2020 09:09 Patient: SCARLET SOLOMON Sex: F : 2000 Age: 20y You feel very uncomfortable Your oral temperature is 100.4F (38C) or higherIf you can't take or keep down oral medicine, ask your pharmacist for acetaminophen suppositories.You don't need a prescription for these.If the fever doesn't get better within 1 hour after you take acetaminophen, take ibuprofen. If thisworks, keep taking the ibuprofen every 6 to 8 hours.If you have chronic liver or kidney disease, talk with your healthcare provider before taking thesemedicines. Also talk with your provider if you ever had a stomach ulcer or GI (gastrointestinal)bleeding.If either medicine alone doesn't keep the fever down, you may switch off between the 2 medicinesevery 3 to 4 hours. But do this only if your healthcare provider has told you to. For example, takeibuprofen. Wait 3 hours. Then take acetaminophen. Wait 3 hours. Take ibuprofen, and so on. Followyour provider's instructions exactly.Don't give aspirin to anyone younger than age 19 who is ill with a fever. Aspirin can cause seriousside effects such as liver damage and Av syndrome. Although rare, Av syndrome is a veryserious illness usually found in children younger than age 15. The syndrome is closely linked to theuse of aspirin or aspirin-containing medicine during viral infection.Follow-up careFollow up with your healthcare provider if you don't get better after 48 hours.When to seek medical adviceCall your healthcare provider right away if any of these occur: Fever, as directed by your healthcare provider, or: o Fever of 100.4F (38C) or above lasting for 24 to 48 hours o Fever lasting more than 3 days, even without other symptoms o Fever that happens after visiting a foreign country o Fever that happens within a month after visiting a country with malaria. Malaria is a serious illness. A fever can still be malaria even if you took medicine to prevent it. The medicine does not work in all cases. Confusion or trouble thinking Headache or stiff neck [address] [facility] Emergency Department [address] [place] [address] Phone #: ext- [phone] 05/16/2020 09:09 Patient: SCARLET SOLOMON Sex: F : 2000 Age: 20y Flat, small, purplish red spots on your skin Low blood pressure Fast heart rate Fast (rapid) breathing You are You just had surgery, another medical procedure, or were just discharged from the hospital Use of medicines that suppress the immune system (immunosuppressants). These include Prednisone, cancer medicines, and organ transplant rejection medicines. If you are not sure about whether your medicines suppress your immune system, ask your healthcare provider.Call 911Someone should call 911 if you: Are having trouble breathing or shortness of breath Are unresponsiveImportant reminderCall your healthcare provider if you get a fever after visiting a place where infectious diseases arecommon. Many people apple picker a cold or other virus while traveling. This usually goes away without aproblem. But, some places have more serious diseases. Fever with certain other symptoms maymean you have a serious illness. Symptoms to watch for include diarrhea, skin rashes, insect bites,and skin boils, or infections. Your provider may ask you: What you did on your trip How long you were there Where you stayed (hotel, [place] house, tent) What you ate and drank If you were bitten by insects or other bugs If you swam in freshwater If you had sex or got a tattoo or piercing while you were thereCheck the [facility] to get more information about specific infectious diseases in the areas you havetraveled. [address] [facility] Emergency Department [address] [place] [address] Phone #: ext- [phone] 05/16/2020 09:09 Patient: SCARLET SOLOMON Sex: F : 2000 Age: 20y [phone] [employer]. [address] [place] [address]. All rights reserved. This information is not intended as asubstitute for professional medical care. Always follow your healthcare professional's instructions. You have been given the following additional information: Adenitis, Mesenteric Vomiting and Diarrhea, Nonspecific (Adult) Bladder Infection, Female (Adult) Hematuria Fever Control (Adult) Do not work today, tomorrow.(Electronically signed by Samir Poole, Physician 05/18/2020 07:42) Name Value Range Interpretation Code Description Data Shira rce(s) Supporting Document(s) ID Date Data Source [id number] 05/16/2020 09:17:[address] [facility] 1 Clinical Report - Nurses [facility] Emergency Department [address] [place] [address] Phone #: ext- [phone] 05/16/2020 09:09 Patient: SCARLET SOLOMON Sex: F : 2000 Age: 20yTRIAGEHistorian: patient. Unaccompanied. ( right side and lower back pain, went to primary 1 week ago andthey said they did not know what was going on, no test done at that time).Acuity: LEVEL 3.Chief Complaint: NAUSEA, VOMITING and DIARRHEA and (right side pain and lower abd pain).Alert. No acute distress.Onset. (2 weeks). She has had nausea, vomiting and diarrhea. ( dizzy).Treatment COMPUTER SYSTEMS SECURITY ADMINISTRATOR:None.SEPSIS SCREEN: SIRS Screen negative. Sepsis Screen negative. No suspected or confirmed signs ofinfection present. --09:05/16/20 Karma Eddy R.N.09:12 05/16/20. BP: 130/69. MAP: 89. HR: 75. RR: 18. O2 saturation: 99%. Temp: 97.8 F (oral). Painlevel now: 12/22. --09:21 05/16/20 Karma Eddy R.N.Weight: 81.6 kg stated. Height/Length: 66 inches Per Patient. BMI: 29. --09:11 05/16/20 Karma Eddy R.N.MedicationsZoloft Oral. --09:05/16/20 Karma Eddy R.N.AllergiesNone. --09:05/16/20 Karma Eddy R.N.PROBLEMS:Depression. --09:14 05/16/20 Karma Eddy R.N.ADDITIONAL SURGERIES:Gallbladder Surgery. --09:05/16/20 Karma Eddy R.N.HistoryPAST MEDICAL HX: Immunizations: up-to-date. Last normal menstrual period- a few months,.SOCIAL HX: Never smoker. No alcohol use or drug use. No recent travel. No known contact with a sickindividual. She was offered HIV testing but declined and hepatitis C testing but declined. She has nottraveled outside the [place]Infectious disease exposure: No infectious disease exposure. Patient is not a known carrier of tuberculosis,hepatitis, HIV, MRSA or VRE. Patient is not a known carrier of CRE. 2 Clinical Report - Nurses [facility] Emergency Department [address] [place] [address] Phone #: ext- [phone] 05/16/2020 09:09 Patient: SCARLET SOLOMON Sex: Bairon : 2000 Age: 20y SELF HARM ASSESSMENT: Self harm assessment was performed. The patient answered "no" to the question(s) "Have you recently felt down, depressed, or hopeless?", "Do you have thoughts of harming or killing yourself?", "Do you have a plan for harming or killing yourself?", "Have you recently had thoughts about harming or killing others?", "Do you have any dangerous items in your possession?", "Have you noticed less interest or pleasure in doing things?", "Are you here because you tried to hurt yourself?" and "Have you ever tried to hurt yourself before today?". ABUSE ASSESSMENT: Abuse assessment. Abuse denied. No suspicion of abuse. No report of abuse. NUTRITIONAL RISK ASSESSMENT: The nutritional risk assessment revealed no deficiencies. FUNCTIONAL ASSESSMENT: Functional assessment: no impairments noted. LEARNING NEEDS ASSESSMENT: The learning needs assessment revealed no barriers. FALL RISK ASSESSMENT: Fall risk assessment completed. No risk factors identified. SKIN INTEGRITY ASSESSMENT: Skin integrity risk assessment completed. No skin integrity risk identified. --05/16/20 Karma Eddy R.N. Interventions Identification band on patient. To treatment room. --:05/16/20 Karma Eddy R.N.PHYSICAL ASSESSMENT( right flank pain).GENERAL / NEURO / PSYCH: Alert. Oriented X 4.HEENT: Mucous membranes are pink.RESPIRATORY: Respirations not labored. Breath sounds within normal limits.CVS: Normal sinus rhythm noted. Capillary refill less than 2 seconds.GI / : The patient has had nausea. Abdomen soft. Abdominal tenderness in the right side of theabdomen. Bowel sounds within normal limits.SKIN: Skin is warm and dry. --:05/16/20 Karma Eddy R.N.NURSING PROGRESS NOTESReassurance given. Two patient identifiers checked. Call light placed in reach. Side rails up x 2. Bedplaced in lowest position. Brakes of bed on. Patient ready for evaluation- ED physician notified. ( ptunable to void at present aware of need for urine sample). --:05/16/20 Karma Eddy R.N. 09:32 05/16/2020 Site #1 started via IV in the left antecubital space with an 20g angiocath, with aseptic technique and good blood return; one attempt. Blood drawn: rainbow set. Labeled in the presence of the patient and sent to the lab. Saline lock flushed with 10 mL saline. --09:32 05/16/20 Nasreen Wells R.N. 09:55 05/16/2020 Started bag #1 1000 mL IV Fluids IV NS; bolus of 1000 mL over 1 hour(s) via site #1 via IV pump. Allergies verified and confirmed 5 rights. IV patency established. IV site checked: no pain, 3 Clinical Report - Nurses [facility] Emergency Department [address] [place] [address] Phone #: ext- [phone] 05/16/2020 09:09 Patient: SCARLET SOLOMON Sex: F : 2000 Age: 20y redness, or swelling. IV flushed thoroughly pre- and post-medication administration. Information reviewed with patient including reason for taking this medication, signs of allergic reaction and precautions. Verbalizes understanding. --09:55 05/16/20 Karma Eddy R.N. 09:55 05/16/2020 Zofran (Ondansetron HCl) IVP 4 mg given over 2 minute(s) via site #1. Allergies verified and confirmed 5 rights. IV patency established. IV site checked: no pain, redness, or swelling. IV flushed thoroughly pre- and post-medication a dministration. IVP given by RN. Information reviewed with patient including reason for taking this medication, signs of allergic reaction and precautions. Verbalizes understanding. --09:55 05/16/20 Karma Eddy R.N. 09:56 05/16/2020 Started 40 mg of Protonix (Pantoprazole Sodium) IVPB in bag #1 50 mL; at 200 mL/hr over 15 minute(s) via site #1. via IV pump. Allergies verified and confirmed 5 rights. IV patency established. IV site checked: no pain, redness, or swelling. IV flushed thoroughly pre- and post-medication administration. Information reviewed with patient including reason for taking this medication, signs of allergic reaction and precautions. Verbalizes understanding. --09:56 05/16/20 Karma Eddy R.N. Patient ID band checked for patient name and birthdate: patient confirmed. Instructions provided to collect clean catch urine and patient verbalized understanding. Clean catch urine collected; sample sent to lab for urinalysis. Specimen labeled in the presence of the patient. ( stool sample sent). --09:58 05/16/20 Surjit, Karma, R.N. Patient transported to CT by wheelchair with tech. --10:14 05/16/20 Karma Eddy R.N. Care transferred and report given (Alfredo). --10:14 05/16/20 Karma Eddy R.N. Patient transported to CT by wheelchair with tech. --10:15 05/16/20 Alfredo Enciso R.N. 10:35 05/16/20. BP: 132/66. MAP: 88. HR: 62. RR: 18. O2 saturation: 99%. Temp: deferred. --10:36 05/16/20 Alfredo Enciso R.N. Reassurance given to the patient (labs back are unremarkable). --10:36 05/16/20 Alfredo Enciso R.N. 11:19 05/16/2020 Protonix IVPB via IV site #1 Discontinued: bag #2 infused. Total amount infused: 50 mL. --11:44 05/16/20 Alfredo Enciso R.N. 11:44 05/16/2020 IV Fluids IV NS via IV site #1 Discontinued: bag #1 infused upon discharge. Total amount infused: 700 mL. --11:44 05/16/20 Alfredo Enciso R.N.DISPOSITION / DISCHARGE No learning barriers present. Written instructions provided in [place]. The patient was discharged by the physician. She was discharged home. She left ambulatory and via private ve hicle. Patient driving. --11:44 05/16/20 Alfredo Enciso R.N. 11:43 05/16/20. BP: 148/92. MAP: 110. HR: 66. RR: 18. O2 saturation: 98%. Temp: 99.2 F. Pain level 4 Clinical Report - Nurses [facility] Emergency Department [address] [place] [address] Phone #: ext- [phone] 05/16/2020 09:09 Patient: SCARLET SOLOMON Sex: F : 2000 Age: 20y now: 09/24. --11:44 05/16/20 Alfredo Enciso R.N.Locked/Released at 05/16/2020 11:45 by Alfredo Enciso R.N. Name Value Range Interpretation Code Description Data Shira rce(s) Supporting Document(s) ID Date Data Source [id number] 05/16/2020 09:17:[address] [facility] 1 Clinical Report - Physicians/Mid Levels [facility] Emergency Department [address] [place] [address] Phone #: ext- [phone] 05/16/2020 09:09 Patient: SCARLET SOLOMON Sex: F : 2000 Age: 20y Time Seen: 09:15 05/16/2020. Arrived- By private vehicle. Historian- patient. Disposition decision: 11:30 05/16/2020.HISTORY OF PRESENT ILLNESS Chief Complaint: VOMITING and DIARRHEA. ABDOMINAL CRAMPS, ABDOMINAL PAIN and NAUSEA Back pain. This started 2 days ago and is still present. It was abrupt in onset. No recent travel. She has had nausea, vomiting, diarrhea and abdominal pain. No black stools, bloody stools, constipation, flank pain or history of possible bad food exposure. No known contact with a sick individual or change in routine. Has not recently been camping or on antibiotics. The illness is described as moderate. Similar symptoms previously. (for 2 weeks). Recent medical care: The patient was seen recently at another facility in a clinic. ( Seen at [place] 2 days ago).REVIEW OF SYSTEMSNo fever, muscle aches, difficulty with urination, dark urine or headache. No sore throat, cough, chestpain, difficulty breathing or excessive urination. No skin rash, jaundice, back pain, fainting episodes orblurred vision. Denies current . The patient has had dizziness.PAST HISTORYPast history not negative. See nurses notes. GI disease. Other disease. Prior gallstones (beforecholecystectomy)InsomniaAbdominal PainUTIUreterolithiasisRenal colicPyelonephritis. Surgeries: Cholecystectomy.SOCIAL HISTORYNever smoker. No alcohol use or drug use. No recent travel.ADDITIONAL NOTESThe nursing notes have been reviewed with agreement regarding the chief complaint, HPI, ROS, PMH andpatient medications and allergies. 2 Clinical Report - Physicians/Mid Levels [facility] Emergency Department [address] [place] [address] Phone #: ext- [phone] 05/16/2020 09:09 Patient: SCARLET SOLOMON Sex: F : 2000 Age: 20yPHYSICAL EXAMVital Signs: 05/16/2020 09:12 BP: 130/69. MAP: 89. HR: 75. RR: 18. O2 saturation: 99%. Temp: 97.8 F.Pain level now: 12/22. Have been reviewed and appear to be correct. Blood pressure normal. Heart ratenormal. Respiratory rate normal. Temperature normal. Oxygen saturation normal.Appearance: Alert. Oriented X3. Anxious. Appears to be in pain. Patient in moderate distress. Indistress.Eyes: Pupils equal, round and reactive to light. Eyes normal inspection.ENT: Nose normal. Pharynx normal.Neck: Normal inspection. Neck supple.CVS: Normal heart rate and rhythm. Heart sounds normal. Pulses normal.Respiratory: No respiratory distress. Painless inspiration. Breath sounds normal.Abdomen: Soft. Moderate tenderness in the periumbilical area. Bowel sounds normal. Noorganomegaly. No mass. Tenderness present.Back: Abnormal inspection. Mild CVA tenderness on the right.Skin: Skin warm and dry. Normal skin color. No rash. Normal skin turgor.Extremities: Extremities exhibit normal ROM. No lower extremity edema.Neuro: Oriented X 3. No motor deficit. No sensory deficit.LABS, X-RAYS, AND EKGLaboratory Tests: Laboratory tests have been ordered, with results reviewed and considered in themedical decision making process. CT ABD PEL W/O Oral W/O IV Contrast: (STELLA: 05/16/2020 09:39) ( MsgRcvd 05/16/2020 14:48) In Progress CT ABD Reason(s): Abdominal Pain TRANSPORTATION: WC IV? IV?(Yes) O2? Oxygen?(No) Ro : HCG Pending CMTS: R flank pain Exam CT ABD //T// PELV W/O ORAL W/O IV [facility] [address] [place] [address] PHONE: [phone] FAX: [phone] Name .................. : JUANITO Waddell Acct Number.................. : [id number] ROOM. ................. : TR-06 MR Number ................... : [id number] Stay type ............. : E/R Discharge Date......... ... : 05/16/20 Admit Date ......... : 05/16/20 Admit Phys .................... : STACY GABRIELLE Date of ....... : 2000 Family Phys ................... : UNKNOWN CO Phone .................. : [phone] Age ................................ : 20 Film# .................. .:[id number] Sex ................................. : F Unsigned transcriptions are preliminary reports and do not represent a medical or legal document CT ABD Reason(s): Abdominal Pain CT SCAN OF THE ABDOMEN AND PELVIS WITHOUT CONTRAST: 3 Clinical Report - Physicians/Mid Levels [facility] Emergency Department [address] [place] [address] Phone #: ext- [phone] 05/16/2020 09:09 Patient: SCARLET SOLOMON Sex: F : 2000 Age: 20y INDICATION: Abdominal pain. FINDINGS: The lung bases are clear. No focal infiltrate or consolidation is identified. No discrete nodule or mass is identified. The heart appears unremarkable. The liver, spleen, pancreas, adrenal glands and bilateral kidneys all appear unremarkable. The gallbladder is surgically absent. The enteric structures appear unremarkable. Scattered mesenteric lymph nodes are identified suggesting mesenteric adenitis. The largest measures 8 mm. The appendix is visualized and appears unremarkable. No free fluid is identified. The urinary bladder is not well distended, but no gross abnormality is identified. The osseous structures show no acute findings. IMPRESSION: Mesenteric adenitis. Examination is otherwise unremarkable. While performing the above CT examination, radiation dose reduction was accomplished utilizing automated exposure control, adjusting of the mA and kV based on the patient's body size and/or the use of imperative reconstructive techniques. CT dose: 1074.7 mGycm Examination dictated by EDIL Lewis. Examination was reviewed with Rahat Obando MD, radiologist at the time of this dictation. Electronically Reviewed and Signed By DCTNAME , SIGNDATE, RAMANDEEPG Transcribe Initials: BENJAMIN , Transcribe Date: 05/16/20 12:18, Dictation Date: Page 1 of 2 [place] [address] PHONE: [phone] FAX: [phone] Name .................. : JUANITO Waddell Acct Number.................. : [id number] ROOM. ................. : TR-06 MR Number ................... : [id number] Stay type ............. : E/R Discharge Date......... ... : 05/16/20 Admit Date ......... : 05/16/20 Admit Phys .................... : RAMIN ANTHONY Date of ....... : 2000 Family Phys ................... : UNKNOWN CO Phone .................. : [phone] Age ................................ : 20 Film# .................. .:[id number] Sex ................................. : F Unsigned transcriptions are preliminary reports and do not represent a medical or legal document CT ABD Reason(s): Abdominal Pain <<REPDIST>> Page 2 of 2Urinalysis: (STELLA: 05/16/2020 09:50) ( MsgRcvd 05/16/2020 10:42) Final results Test Result Flag Units (Reference) 4 Clinical Report - Physicians/Mid Levels [facility] Emergency Department [address] [place] [address] Phone #: ext- [phone] 05/16/2020 09:09 [id number] Sex: [facility] : 2000 Age: 20y URINALYSIS URINALYSIS SOURCE R COLOR yellow (NORMAL: Yello CLARITY hazy (NORMAL: Clear SPEC GRAVITY 1.020 (1.001 - 1.030 pH 5 (5 - 9) GLUCOSE NORM (NORMAL: Negat BILIRUBIN NEG (NORMAL: Negat KETONE NEG (NORMAL: Negat PROTEIN 30 (NORMAL: Negat NITRITE NEG (NORMAL: Negat BLOOD 250 A (NORMAL: Negat LEUK EST 25 (NORMAL: Negat UROBILINOGEN NOR (less than 1.0 MICROSCOPIC See Below WBC 3 - 5 (NORMAL: NONE RBC TNTC A (NORMAL: NONE EPITHELIAL MODERATE A (NORMAL: NONE BACTERIA 1+ SMALL (NORMAL: NONE MUCOUS 1+ (NORMAL: NONECBC w Diff: (STELLA: 05/16/2020 09:30) ( MsgRcvd 05/16/2020 10:01) Final results Test Result Flag Units (Reference) CBC W/AUTOMATED DIFF COMPLETE BLOOD COUNT WBC 8.8 10/uL (4.2 - 11.0) RBC 4.66 10/uL (4.20 - 5.40) HEMOGLOBIN 14.0 g/dL (12.0 - 16.0) HEMATOCRIT 41.1 % (37.0 - 47.0) MCV 88.2 fL (81.0 - 101) MCH 30.0 pg (27.0 - 34.0) MCHC 34.1 g/dL (31.0 - 36.0) RDW 11.6 % (11.5 - 14.5) PLATELETS 337 10/uL (150 - 450) MPV 8.6 fL (7.4 - 10.4) NEUT 69.0 % (37.0 - 80.0) LYMPH 22.3 L % (25.0 - 40.0) MONO 6.6 % (3.0 - 8.0) EOS 1.5 % (0.0 - 7.0) BASO 0.3 % (0.0 - 2.5) %IG 0.3 H % (0.0 - 0.0) %NRBC 0.0 % (0.0 - 0.0) #NEUT 6.09 10/uL (2.00 - 6.90) #LYMPH 1.97 10/uL (0.60 - 3.40) #MONO 0.58 10/uL (0.00 - 0.90) #EOS 0.13 10/uL (0.00 - 0.70) #BASO 0.03 10/uL (0.00 - 0.20) #IG 0.03 10/uL (0.00 - 0.10) #NRBC 0.00 10/uL (0.00 - 0.00) MANUAL DIFF NOT INDICATED RBC MORPH NOT INDICATEDCMP: (STELLA: 05/16/2020 09:30) ( MsgRcvd 05/16/2020 10:24) Final results Test Result Flag Units (Reference) COMPREHENSIVE METABOLIC PANEL COMPREHENSIVE METABOLIC PANEL 5 Clinical Report - Physicians/Mid Levels [facility] Emergency Department [address] [place] [address] Phone #: ext- [phone] 05/16/2020 09:09 Patient: SCARLET SOLOMON Sex: F : 2000 Age: 20y SODIUM 137 mEq/L (134 - 153) POTASSIUM 5.0 mEq/L (3.6 - 5.0) CHLORIDE 101 mEq/L (98 - 107) CO2 26 MEQ/L (22 - 30) GLUCOSE 114 H MG/DL (65 - 110) BUN 11 MG/DL (7 - 21) CREATININE 0.5 L MG/DL (0.7 - 1.5) BUN/CREAT 22 (8 - 27) TOTAL PROTEIN 7.4 G/DL (6.3 - 8.2) ALBUMIN 4.3 G/DL (3.9 - 5.0) GLOBULIN 3.1 GM/DL (2.4 - 3.2) A/G RATIO 1.4 (0.8 - 2.0) CALCIUM 9.4 MG/DL (8.4 - 10.2) TOTAL BILI 0.7 MG/DL (0.2 - 1.3) ALKALINE PHOS 98 U/L (38 - 126) SGOT/AST <39 U/L (5 - 40) SGPT/ALT <15 U/L (7 - 56) ANION GAP 10.0 mmol/L (8.0 - 16.0) AGE 20 yrs NON-AA GFR >60 mL/min AFR AMER GFR >60 mL/min Male GFR Interprentation 20-49 yrs >60 mL/min Hbboib30-18 yrs >56 mL/min Normal 60-69 yrs >49 mL/min Normal 70-79yrs>42 mL/min Normal 80 and above >35 mL/min Normal Female GFRInterpretation 20-39 yrs >60 mL/min Normal 40-49 yrs >58 mL/minNormal 50-59 yrs >51 mL/min Normal 60-69 yrs >45 mL/min Alvdsc79-98 yrs >39 mL/min Normal 80 and above >32 mL/min NormalLipase: (STELLA: 05/16/2020 09:30) ( MsgRcvd 05/16/2020 10:12) Final results Test Result Flag Units (Reference) LIPASE 20 U/L (13 - 60)Lactic Acid: (STELLA: 05/16/2020 09:30) ( MsgRcvd 05/16/2020 09:52) Final results Test Result Flag Units (Reference) LACTIC ACID 1.9 MMOL/L (0.2 - 2.2)Beta-HCG, Qual Serum: (STELLA: 05/16/2020 09:30) ( MsgRcvd 05/16/2020 10:06) Final results Test Result Flag Units (Reference) HCG SERUM QUAL NEGATIVE (NORMAL: NEGAT HCG SERUM QL REENTER NEGATIVE (NORMAL: NEGAT { KIT LOT # [id number] ){ KIT EXP DATE05.20.21 ){ PROCEDURAL CONTROL VALID)GI 4 Panel: (STELLA: 05/16/2020 09:50) ( MsgRcvd 05/17/2020 11:28) Final results Test Result Flag Units (Reference) GI PANEL _GASTROINTESTINAL PANEL_ TEST PERFORMED AT [facility] [address] [place] [address] CLIA# [id number] SEE SCANNED REPORT.Note - Tests: (CT abdomen / pelvis - mesenteric adenitis. No ureteral stones.). 6 Clinical Report - Physicians/Mid Levels [facility] Emergency Department [address] [place] [address] Phone #: ext- [phone] 05/16/2020 09:09 Patient: SCARLET SOLOMON Sex: F : 2000 Age: 20yPROGRESS AND PROCEDURESCourse of Care: 11:28 May 16 2020. Patient is stable. Symptoms better. 11:28 May 16 2020. Pt. has UTI, diarrhea and mesenteric adenitis. She feels somewhat better after fluids and Zofran / Protonix. Labs otherwise are unremarkable and she is afebrile. Will treat UTI. Will discharge home. Critical care performed (130 minutes). Time is exclusive of separately billable procedures. Time includes: direct patient care, patient reassessment, i nterpretation of data (laboratory data and pulse oximetry), review of patient's medical records and documentation of patient care- see progress notes. Procedures included in critical care time: peripheral IV placement and phlebotomy- see progress notes. Disposition: Discharged home in good and improved condition (11:30 May 16 2020). Condition: good.CLINICAL IMPRESSION Diarrhea Acute mesenteric lymphadenitis Acute urinary tract infection with cystitis and hematuria. Not associated with indwelling catheter or obstruction.INSTRUCTIONS Alternate Tylenol (Acetaminophen) or Motrin (Ibuprofen) for temperature greater than 100.4 degrees by tympanic thermometer. Take according to label instructions. Do not work today, tomorrow. Drink plenty of fluids. Warnings: Further evaluation is necessary. GENERAL WARNINGS: Return or contact your physician immediately if your condition worsens or changes unexpectedly, if not improving as expected, or if other problems arise. Prescription Medications: Cipro 500 mg tablet Take 1 tablet twice a day for 7 days -- for UTI / diarrhea. Dispense 14 tablet. Refills: 0. Substitution permitted. [facility] [address] ; [place] [address]. . ibuprofen 800 mg tablet Take 1 tablet every eight hours as needed for 10 days -- for pain / fever. Dispense 30 tablet. Refills: 0. Substitution permitted. [facility] [address] ; [place] [address]. . 7 Clinical Report - Physicians/Mid [facility] Emergency Department [address] [place] [address] Phone #: ext- [phone] 05/16/2020 09:09 Patient: SCARLET SOLOMON Sex: Bairon : 2000 Age: 20y Pyridium 200 mg tablet Take 1 tablet every eight hours for 2 days -- for cystitis / bladder spasm. Dispense 6 tablet. Refills: 0. Substitution permitted. [facility] [address] ; [place] [address]. . Understanding of the discharge instructions verbalized by patient. Follow-up with: [facility], , , [address] [facility], , [place], [address] Follow up Tuesday if not better. Call for an appointment. Reason for referral: evaluation, treatment and UTI / Mesenteric Adenitis / Diarrhea.(Electronically signed by Samir Poole, Physician 05/18/2020 07:42) Name Value Range Interpretation Code Description Data Shira rce(s) Supporting Document(s) ID Date Data Source [id number] 05/16/2020 08:58:00 PM EDT [facility] FilmArray Gastrointestinal panel is a qu alitativemultiplexed NAAT test - PCRFilmArray GI panel detects campylobacter,cdiff,plesiomonasshigelloides,salmonella,vibro,vibrio cholerae,yersiniaenterocolitica, diarrheagenic E coli, EAEC,EPEC,ETEC,STEC I and II, E coli 0157, shigella/enteroinvasive E.coli(EIEC),cryptosporidium,cyclospora cayetanensis,entamoebahistolytica,giardia lamblia,adenovirus F 40/41,as trovirus,norovirus GI/GII, rotavirus A, sapovirus.NORMAL VALUE FOR ALL PATHOGENS IS "NOT DETECTED"THE FilmARRAY GASTROINTESTINAL PANEL DOES NOT DIFFERENTIATEBETWEEN VIABLE AND NONVIABLE ORGANISMSTHE PERFORMANCE OF THIS TEST HAS NOT BEEN ESTABLISHED FORPATIENTS WITHOUT SIGNS AND SYMPTOMS OF GASTROINTESTINALILLNESS.THE PERFORMANCE OF THIS TEST HAS NOT BEEN ESTABLISHED FORMONITORING TREATMENT OF INFECTION WITH ANY OF THE PANELORGANISMS.RECENT ORAL ADMINISTRATION OF A ROTAVIRUS A VACCINE MAYCAUSE POSITIVE RESULTS FOR ROTAVIRUS A IF THE VIRUS ISPASSED IN THE STOOL.RESULT FROM THIS TEST MUST BE CORRELATED WITH THE CLINICALHISTORY, EPIDEMIOLOGICAL DATA AND OTHER DATA AVAILBLE TO THECLINICIAN EVALUATING THE PATIENT. NEGATIVE RESULTS SHOULDNOT BE USED THE SOLE BASIS FOR DIAGNOSIS, TREATMENT, OROTHER MANAGEMENT DECISIONS.DUE TO HIGH RATES OF ASYMPTOMATIC CARRIAGE OF C. DIFF,ESPECIALLY IN VERY YOUNG CHILDREN AND HOSPITALIZED PATIENTS,THE DETECTION OF TOXIGENIC C. DIFF SHOULD BE INTERPRETEDWI THIN THE CONTEXT OF QUIDELINES DEVELOPED BY THE TESTINGFACILITY OR OTHER EXPERTS. (E.G. GUIDELINES/POLICYSTATEMENTS PUBLISHED BY THE [employer] THE SOCIETY FOR HEALTHCARE EPIDEMIOLOGY OF NEOMÍ ANDTHE INFECTIOUS DISEASE SOCIETY OF NOEMÍ).No Organisms Detected Name Value Range Interpretation Code Description Data Shira rce(s) Supporting Document(s) ID Date Data Source [id number] 05/17/2020 11:28:[address] [facility] Name Value Range Interpretation Code Description Data Shira rce(s) Supporting Document(s) [facility] [place] [address] CLIA# [id number] SEE SCANNED REPORT ID Date Data Source [id number] 05/16/2020 10:41:00 AM EDT [facility] Value Range Interpretation Code Description Data Shira rce(s) Supporting Document(s) URINALYSIS [facility] yulia URINALYSIS SOURCE R [facility] al COLOR yellow NORMAL: Yellow [facility] CLARITY hazy NORMAL: Clear [facility] Specific gravity of Urine by Test strip 1.020 1.001 - 1.030 [facility] pH 5 5 - 9 [facility] al Glucose [Mass/volume] in Urine by Test strip NORM NORMAL: Negat [facility] Bilirubin.total [Presence] in Urine by Test strip NEG NORMAL: Negative [facility] Ketones [Presence] in Urine by Test strip NEG NORMAL: Negative [facility] Protein [Mass/volume] in Urine by Test strip 30 NORMAL: Negat [facility] Nitrite [Presence] in Urine by Test strip NEG NORMAL: Negative [facility] BLOOD 250 NORMAL: Negative [facility] Leukocyte esterase [Presence] in Urine by Test strip 25 MAURIZIO L: Negative [facility] Urobilinogen [Mass/volume] in Urine by Test strip NOR less rocky n 1.0 mg/dL [facility] MICROSCOPIC See Below [facility] ital WBC 3 - 5 NORMAL: NONE SEEN [facility] Erythrocytes [#/volume] in Urine by Test strip TNTC NORMAL: NON E SEEN A [facility] EPITHELIAL MODERATE NORMAL: NONE SEEN A [facility] Bacteria [Presence] in Urine sediment by Light microscopy 1+ SMALL NORMAL: NONE SEEN [facility] Mucus [Presence] in Urine sediment by Light microscopy 1+ NOR MAL: NONE SEEN [facility] ID Date Data Source [id number] 05/16/2020 10:24:00 AM EDT [facility] Value Range Interpretation Code Description Data Shira rce(s) Supporting Document(s) COMPREHENSIVE METABOLIC PANEL [facility] COMPREHENSIVE METABOLIC PANEL Sodium [Moles/volume] in Serum or Plasma 137 mEq/L 134 - 153 [facility] Potassium [Moles/volume] in Serum or Plasma 5.0 mEq/L 3.6 - 5.0 [facility] Chloride [Moles/volume] in Serum or Plasma 101 mEq/L 98 - 107 [facility] Carbon dioxide, total [Moles/volume] in Serum or Plasma 26 MEQ/L 22 - 30 [facility] Glucose [Mass/volume] in Serum or Plasma 114 MG/DL 65 - [address] [facility] BUN 11 MG/DL 7 - 21 [facility] al Creatinine [Mass/volume] in Serum or Plasma 0.5 MG/DL 0.7 - 1.[address] [facility] BUN/CREAT 22 8 - 27 [facility] al Protein [Mass/volume] in Serum or Plasma 7.4 G/DL 6.3 - 8.2 [facility] Albumin [Mass/volume] in Serum or Plasma 4.3 G/DL 3.9 - 5.0 [facility] Globulin [Mass/volume] in Serum by calculation 3.1 GM/DL 2.4 - 3.2 [facility] A/G RATIO 1.4 0.8 - 2.0 [facility] Calcium [Mass/volume] in Serum or Plasma 9.4 MG/DL 8.4 - 10.2 [facility] Bilirubin.total [Mass/volume] in Serum or Plasma 0.7 MG/DL 0.2 - 1.3 [facility] Alkaline phosphatase [Enzymatic activity/volume] in Serum or Plasma 98 U/L 38 - 126 [facility] Aspartate aminotransferase [Enzymatic activity/volume] in Serum or Plasma <39 U/L 5 - 40 [facility] Alanine aminotransferase [Enzymatic activity/volume] in Seru m or Plasma <15 U/L 7 - 56 [facility] Anion gap 3 in Serum or Plasma 10.0 mmol/L 8.0 - 16.0 [facility]GE 20 [facility] >60 mL/min [facility] ital AFR AMER GFR >60 mL/min [facility] spital Male GFR In terprentation 20-49 yrs >60 mL/min Normal 50-59 yrs >56 mL/min Normal 60-69 yrs >49 mL/min Normal 70-79yrs >42 mL/min Normal 80 and above >35 mL/min Normal Female GFR Interpretation 20-39 yrs >60 mL/min Normal 40-49 yrs >58 mL/min Normal 50-59 yrs >51 mL/min Normal 60-69 yrs >45 mL/min Normal 70-79 yrs >39 mL/min Normal 80 and above >32 mL/min Normal ID Date Data Source [id number] 05/16/2020 10:12:[address] [facility] Name Value Range Interpretation Code Description Data Shira rce(s) Supporting Document(s) Lipase [Enzymatic activity/volume] in Serum or Plasma 20 U/L 13 - 60 [facility] ID Date Data Source [id number] 05/16/2020 10:04:[address] [facility] Name Value Range Interpretation Code Description Data Shira rce(s) Supporting Document(s) HCG SERUM QUAL NEGATIVE NORMAL: NEGATIVE [facility] HCG SERUM QL REENTER NEGATIVE NORMAL: NEGATIVE [facility] { KIT LOT # [id number] ){ KIT EXP DATE 05.20.21 ){ PROCEDURAL CONTROL VALID ) ID Date Data Source [id number] 05/16/2020 10:00:[address] [facility] Name Value Range Interpretation Code Description Data Shira rce(s) Supporting Document(s) CBC W/AUTOMATED DIFF [facility] COMPLETE BLOOD COUNT Leukocytes [#/volume] in Blood by Automated count 8.8 10^3/uL 4.2 - [address] [facility] Erythrocytes [#/volume] in Blood by Automated count 4.66 10^6/uL 4. 20 - 5.40 [facility] Hemoglobin [Mass/volume] in Blood 14.0 g/dL 12.0 - 16.0 [facility] Hematocrit [Volume Fraction] of Blood by Automated count 41.1 % 3 7.0 - 47.0 [facility] Erythrocyte mean corpuscular volume [Entitic volume] by Auto mated count 88.2 fL 81.0 - 101 [facility] Erythrocyte mean corpuscular hemoglobin [Entitic mass] by Automated count 30.0 pg 27.0 - 34.0 [facility] Erythrocyte mean corpuscular hemoglobin concentration [Mass/volume] by Automated count 34.1 g/dL 31.0 - 36.0 [facility] Erythrocyte distribution width [Ratio] by Automated count 11.6 % 11.5 - 14.5 [facility] Platelets [#/volume] in Blood by Automated count 337 10^3/uL 150 - [address] [facility] Platelet mean volume [Entitic volume] in Blood by Automated count 8.6 fL 7.4 - 10.4 [facility] Neutrophils/100 leukocytes in Blood by Automated count 69.0 % 37. 0 - 80.0 [facility] Lymphocytes/100 leukocytes in Blood by Manual count 22.3 % 25.0 - 40.[address] [facility] Monocytes/100 leukocytes in Blood by Automated count 6.6 % 3.0 - 8.0 [facility] Eosinophils/100 leukocytes in Blood by Automated count 1.5 % 0.0 - 7.0 [facility] Basophils/100 leukocytes in Blood by Automated count 0.3 % 0.0 - 2.5 [facility] %IG 0.3 % 0.0 - 0.0 [facility] %NRBC 0.0 % 0.0 - 0.0 [facility] al Neutrophils [#/volume] in Blood by Automated count 6.09 10^3/uL 2.00 - 6.90 [facility] Lymphocytes [#/volume] in Blood by Automated count 1.97 10^3/uL 0.60 - 3.40 [facility] Monocytes [#/volume] in Blood by Automated count 0.58 10^3/uL 0.00 - 0.90 [facility] Eosinophils [#/volume] in Blood by Automated count 0.13 10^3/uL 0.00 - 0.70 [facility] Basophils [#/volume] in Blood by Automated count 0.03 10^3/uL 0.00 - 0.20 [facility] #IG 0.03 10^3/uL 0.00 - 0.10 [facility] ospital #NRBC 0.00 10^3/uL 0.00 - 0.00 [facility] MANUAL DIFF NOT INDICATED [facility] RBC MORPH NOT INDICATED [facility] spital ID Date Data Source [id number] 05/16/2020 09:52:[address] [facility] Name Value Range Interpretation Code Description Data Shira rce(s) Supporting Document(s) Lactate [Moles/volume] in Serum or Plasma 1.9 MMOL/L 0.2 - 2.2 [facility] ID Date Data Source [id number] 03/03/2020 03:01:00 PM EDT [facility] [address] [place] [address] PHONE: [phone] FAX: [phone] Name .................. : JUANITO Waddell Acct Number.................. : [id number] ROOM. ................. : [facility] MR Number ................... : [id number] Stay type ............. : E/R Discharge Date......... ... : Admit Date ......... : 02/29/20 Admit Phys .................... : RAMIN ANTHONY Date of ....... : 2000 Family Phys ................... : UNKNOWN CO Phone .................. : [phone] Age ................................ : 20 Film# .................. .:[id number] Sex ................................. : F Unsigned transcriptions are preliminary reports and do not represent a medical or legal document ABDOMEN 1 VIEW [id number] COMPLETE:02/29/20 21:40 [id number] Reason(s): Flank Pain Right ABDOMEN: SINGLE VIEW HISTORY: Right flank pain. COMPARISON: CT study from 02/10/20. FINDINGS: Radiographically, no urolithiasis is evident. Cholecystectomy clips are present. Nonobstructive bowel gas pattern. No organomegaly. Clear lung bases. No osseous abnormality. IMPRESSION: Normal examination. No urolithiasis. Electronically Reviewed and Signed By Stephen Hylton MD , 03/03/20 15:01, APM Transcribe Initials: BENJAMIN , Transcribe Date: 02/29/20 23:21, Dictation Date: Copy for: ZOLTAN DINH via fax Copy for: EMERGENCY DEPT via modem Copy for: 710 MED REC DISCHARGED Page 1 of 1 Name Value Range Interpretation Code Description Data Shira rce(s) Supporting Document(s) ID Date Data Source [id number] 03/03/2020 03:01:00 PM EDT [facility] [address] [place] [address] PHONE: [phone] FAX: [phone] Name .................. : JUANITO Waddell Acct Number.................. : [id number] ROOM. ................. : TR-03 MR Number ................... : [id number] Stay type ............. : E/R Discharge Date......... ... : Admit Date ......... : 02/29/20 Admit Phys .................... : RMAIN GABRIELLE Date of ....... : 2000 Family Phys ................... : UNKNOWN CO Phone .................. : [phone] Age ................................ : 20 Film# .................. .:[id number] Sex ................................. : F Unsigned transcriptions are preliminary reports and do not represent a medical or legal document CT HEAD W/O CONTRAST [id number] COMPLETE:02/29/20 21:40 [id number] Reason(s): Head Pain CT OF THE HEAD WITHOUT CONTRAST: HISTORY: Head pain. COMPARISON: None. FINDINGS: No acute intracranial hemorrhage, midline shift, mass effect or abnormal extra-axial fluid. Moreira- white differentiation is preserved. The basal cisterns are patent. No hydrocephalus. Well-aerated paranasal sinuses and mastoid air cells. IMPRESSION: No acute intracranial abnormality. While performing the above CT examination, radiation dose reduction was accomplished utilizing automated exposure control, adjusting of the mA and kV based on the patient's body size and/or the use of imperative reconstructive techniques. CT dose: 814.8 mGycm Electronically Reviewed and Signed By Stephen Hylton MD , 03/03/20 15:01, APM Transcribe Initials: BENJAMIN , Transcribe Date: 02/29/20 23:19, Dictation Date: Copy for: ZOLTAN DINH via fax Copy for: EMERGENCY DEPT via [facility] Copy for: 710 MED REC DISCHARGED Page 1 of 1 Name Value Range Interpretation Code Description Data Shira rce(s) Supporting Document(s) ID Date Data Source [id number] 02/29/2020 09:35:[address] [facility] [address] [facility] Emergency Department [address] [place] [address] Phone #: ext- [phone] 02/29/2020 21:28 Patient: SCARLET SOLOMON Sex: F : 2000 Age: 20yWEIGHT:81.6 kg HEIGHT:66 inches BMI:29.0ALLERGIES: No Known Drug AllergyCHIEF COMPLAINT: headache, headacheDIAGNOSIS: Urinary tract infectious disease, HeadacheLAB ORDERSOrder Description Priority Entered Acknowledged InitialedCBC w Diff STAT 21:40 02/29/2020 21:41 Jesse Tai R.N.;CMP STAT 21:40 02/29/2020 21:41 Jesse Tai R.N.;Lipase STAT 21:40 02/29/2020 21:41 Jesse Tai R.N.;Urinalysis (Clean STAT 21:40 02/29/2020 22:15 Zaire,Catch) Jesse SOLO;Beta-HCG, Qual STAT 21:40 02/29/2020 22:15 [place],Urine Jesse SOLO;DIAGNOSTIC STUDY ORDERSOrder Description Priority Entered Acknowledged InitialedAbdomen 1 View STAT 21:40 02/29/2020 21:41 Jesse Tai R.N.; NOTES: KUB Reason for Study: Flank Pain RightCT Head W/O Cont STAT 21:40 02/29/2020 21:41 Zaire,(Oxygen?(No)) Jesse SOLO; Reason for Study: Head PainMEDICATION/IV/DRIP/FLUID ORDERSOrder Description Priority Entered Acknowledged InitialedNS IV : Bolus 1000 21:40 02/29/2020 22:03 Sorbero, [address] [facility] Emergency Department [address] [place] [address] Phone #: ext- [phone] 02/29/2020 21:28 Patient: SCARLET SOLOMON Sex: F : 2000 Age: 20ymL, then 125 mL/hr Jesse SOLO;Benadryl IVP 25 mg 21:40 02/29/2020 22:04 Zaire, Jesse mclaughlin R.N. PA;Reglan IVPB 10 mg 21:40 02/29/2020 22:04 Sorbantonio,with Dextrose Jesse Robles R.N.Intravenous 50 mL PA;(D5W)Toradol IVP 15 mg 21:40 02/29/2020 22:03 Jesse Tai R.N.;Zofran IVP 8 mg 21:40 02/29/2020 22:03 Jesse Tai R.N.;Rocephin 22:38 02/29/2020 Ack'd: 23:13 Marti 23:31 Marti Jay(1gm/50mL) IVPB Jesse Yu R.N.1000 mg with PA;Dextrose 50 mlspike bag (D5W)GENERAL ORDERSOrder Description Priority Entered Acknowledged InitialedNPO 21:40 02/29/2020 21:41 Jesse Tai R.N.;Saline Lock 21:40 02/29/2020 21:51 Jesse Tai R.N.;[Electronically signed by Jesse Wilcox (22:39 02/29/2020)][Electronically signed by Heath Yu RN (00:57 03/01/2020)][Electronically signed by Samir Poole (01:55 03/01/2020)][Electronically locked by Heath Yu RN (00:57 03/01/2020)] Name Value Range Interpretation Code Description Data Shira rce(s) Supporting Document(s) ID Date Data Source [id number] 02/29/2020 09:35:[address] [facility] [address] [facility] Emergency Department [address] [place] [address] Phone #: ext- [phone] 02/29/2020 21:28 Patient: SCARLET SOLOMON Sex: F : 2000 Age: 20yWeight: 81.6 kgHeight/Length: 66 in.BMI: 29.0ALLERGIES: No Known Drug AllergyThe patient's Home Medications are listed below:THE FOLLOWING MEDICATIONS NEED TO BE RECONCILED: Nexplanon Subcutaneous traZODone HCl Oral Zoloft OralThe source(s) of the original Home Medication information:patientThe following Medications were given to the patient in the Emergency Department:NS [IV] IV Fluids bolus 0, then 1500 mL/hr, administered: 02/29/2020 10:03:00 PMZofran [IVP] IVP 8 mg, administered: 02/29/2020 10:03:00 PMToradol [IVP] IVP 15 mg, administered: 02/29/2020 10:03:00 PMBenadryl [IVP] IVP 25 mg, administered: 02/29/2020 10:04:00 PMReglan [IVPB] IVPB bolus 0, then 10 mg 1000 mL/hr, administered: 02/29/2020 9:59:00 PMROCEPHIN (1GM/50ML) [IVPB] IVPB bolus 0, then 1 gm 100 mL/hr, administered: 02/29/2020 11:30:00 PMThe following Medications were prescribed to the patient:ibuprofen 800 mg tablet Take 1 tablet every eight hours as needed for 10 days -- for pain / fever.Dispense 30 tablet. Refills: 1. Substitution permitted.Pharmacy - [facility] [id number] ; [place] [address]. FaxNumber: [phone]. [address] [facility] Emergency Department [address] [place] [address] Phone #: ext- [phone] 02/29/2020 21:28 Patient: SCARLET SOLOMON Sex: F : 2000 Age: 20yCipro 500 mg tablet Take 1 tablet twice a day for 7 days -- for UTI. Dispense 14 tablet. Refills: 0.Substitution permitted.Pharmacy - [facility] [id number] ; [place] [address]. . -- Samir Poole, Physician Name Value Range Interpretation Code Description Data Shira rce(s) Supporting Document(s) ID Date Data Source [id number] 02/29/2020 09:35:[address] [facility] [address] [facility] Emergency Department [address] [place] [address] Phone #: ext- [phone] 02/29/2020 21:28 Patient: SCARLET SOLOMON Sex: F : 2000 Age: 20yWeight: 81.6 kgHeight/Length: 66 inBMI: 29ALLERGIES: No Known Drug Allergy Date/Time Medication Administered Medication OrderedStart NS [IV] NS IV : Bolus 1000 mL, then 65361:03 02/29/2020 Dose: IV Fluids mL/hrSTravis jones R.N. Rate: 1500 mL/hr over 40 minute(s)---- Dispensed: 1000 mL bagStop Site: #1 left AC00:38 03/01/2020Jeanna Moore BENADRYL [IVP] (DIPHENHYDRAMINE Benadryl IVP 25 mg22:04 02/29/2020 HCL)Travis Tai R.NElder Dose: 25 mg IVP Site: #1 left ACStart REGLAN [IVPB] (METOCLOPRAMIDE Reglan IVPB 10 mg with Dphzppxk16:59 02/29/2020 HCL) Intravenous 50 mL (D5W)Travis Tai R.NElder Dose: 10 mg IVPB---- Rate: 1000 mL/hr over 10 minute(s)Stop Dispensed: 50 mL bag22:11 02/29/2020 Site: #1 left Travis Yuan R.N.Given TORADOL [IVP] (KETOROLAC Toradol IVP 15 mg22:03 02/29/2020 TROMETHAMINE)Travis Tai R.NElder Dose: 15 mg IVP Site: #1 left ACGiven ZOFRAN [IVP] (ONDANSETRON HCL) Zofran IVP 8 mg22:03 02/29/2020 Dose: 8 mg IVPSTravis jones R.N. Site: #1 left ACStart ROCEPHIN (1GM/50ML) [IVPB] Rocephin (1gm/50mL) IVPB 165260:30 02/29/2020 (CEFTRIAXONE SODIUM) mg with Dextrose 50 ml spike bagMarti Yu R.N. Dose: 1 gm IVPB (D5W)---- Rate: 100 mL/hrStop Dispensed: 50 mL bag00:05 03/01/2020 Site: #1 left Cecilia uY RN Name Value Range Interpretation Code Description Data Shira rce(s) Supporting Document(s) ID Date Data Source [id number] 02/29/2020 09:35:[address] [facility] [address] [facility] Emergency Department [address] [place] [address] Phone #: ext- [phone] 02/29/2020 21:28 Patient: SCARLET SOLOMON Sex: Bairon : 2000 Age: 20y(Electronically signed by EDIL Moreno 02/29/2020 22:39)Episodic, poorly controlled tension headache. No migraine headache.Acute urinary tract infection with cystitis. No hematuria. Not associated with indwelling catheter orobstruction.INSTRUCTIONSAlternate Tylenol (Acetaminophen) or Motrin (Ibuprofen) for temperature greater than 100.4 degrees bytympanic thermometer. Take according to label instructions. Do not work today, tomorrow.(Drink plenty of fluids.).Warnings: Further evaluation is necessary.GENERAL WARNINGS: Return or contact your physician immediately if your condition worsens orchanges unexpectedly, if not improving as expected, or if other problems arise.Prescription Medications:ibuprofen 800 mg tablet Take 1 tablet every eight hours as needed for 10 days -- for pain / fever.Dispense 30 tablet. Refills: 1. Substitution permitted.Pharmacy - [facility] [id number] ; [place] [address]. .Cipro 500 mg tablet Take 1 tablet twice a day for 7 days -- for UTI. Dispense 14 tablet. Refills: 0.Substitution permitted.[facility] - [facility] [id number] ; [place] [address]. . [address] [facility] Emergency Department [address] [place] [address] Phone #: ext- [phone] 02/29/2020 21:28 Patient: SCARLET SOLOMON Sex: F : 2000 Age: 20yFollow-up:Follow up with your doctor in three days if not better. Call for an appointment. Reason for referral:evaluation, treatment and UTI / Headache.Understanding of the discharge instructions verbalized by patient and family. ADDITIONAL INFORMATIONHeadache, UnspecifiedA number of things can cause headaches. The cause of your headache isn't clear. But it doesn'tseem to be a sign of any serious illness.You could have a tension headache or a migraine headache.Stress can cause a tension headache. This can happen if you tense the muscles of your shoulders,neck, and scalp without knowing it. If this stress lasts long enough, you may develop a tensionheadache.It is not clear why migraines occur, but certain things called" triggers" can raise the risk of having amigraine attack. Migraine triggers may include emotional stress or depression, or by hormonechanges during the menstrual cycle. Other triggers include control pills and other medicines,alcohol or caffeine, foods with tyramine (such as aged cheese, wine), eyestrain, weather changes,missed meals, and lack of sleep or oversleeping. [address] [facility] Emergency Department [address] [place] [address] Phone #: ext- [phone] 02/29/2020 21:28 Patient: SCARLET SOLOMON Sex: F : 2000 Age: 20yOther causes of headache include: Viral illness with high fever Head injury with concussion Sinus, ear, or throat infection Dental pain and jaw joint (TMJ) painMore serious but less common causes of headache include stroke, brain hemorrhage, brain tumor,meningitis, and encephalitis.Home careFollow these tips when taking care of yourself at home: Don't drive yourself home if you were given pain medicine for your headache. Instead, have someone else drive you home. Try to sleep when you get home. You should feel much better when you wake up. Apply heat to the back of your neck to ease a neck muscle spasm. Take care of a migraine headache by putting an ice pack on your forehead or at the base of your skull. If you have nausea or vomiting, eat a light diet until your headache eases. If you have a migraine headache, use sunglasses when in the daylight or around bright indoor lighting until your symptoms get better. Bright glaring light can make this type of headache worse.Follow-up careFollow up with your healthcare provider, or as advised. Talk with your provider if you have frequentheadaches. He or she can help figure out a treatment plan. By knowing the earliest signs ofheadache, and starting treatment right away, you may be able to stop the pain yourself.When to seek medical adviceCall your healthcare provider right away if any of these occur: Your head pain suddenly gets worse after sexual intercourse or strenuous activity Your head pain doesn't get better within 24 hours You aren't able to keep liquids down (repeated vomiting) Fever of 100.4F (38C) or higher, or as directed by your healthcare provider [address] [facility] Emergency Department [address] [place] [address] Phone #: ext- [phone] 02/29/2020 21:28 Patient: SCARLET SOLOMON Sex: F : 2000 Age: 20y Stiff neck Extreme drowsiness, confusion, or fainting Dizziness or dizziness with spinning sensation (vertigo) Weakness in an arm or leg or one side of your face You have trouble talking or seeing [id number] [employer]. [address] [place] [address]. All rights reserved. This information is not intended as asubstitute for professional medical care. Always follow your healthcare professional's instructions.Bladder Infection, Female (Adult)Urine is normally doesn't have any bacteria in it. But bacteria can get into the urinary tract from theskin around the rectum. Or they can travel in the blood from elsewhere in the body. Once they are inyour urinary tract, they can cause infection in the urethra (urethritis), the bladder (cystitis), or thekidneys (pyelonephritis).The most common place for an infection is in the bladder. This is called a bladder infection. This isone of the most common infections in women. Most bladder infections are easily treated. They arenot serious unless the infection spreads to the kidney.The phrases "bladder infection," "UTI," and "cystitis" are often used to describe the same thing. Butthey are not always the same. Cystitis is an inflammation of the bladder. The most common cause ofcystitis is an infection. [address] [facility] Emergency Department [address] [place] [address] Phone #: ext- [phone] 02/29/2020 21:28 Patient: SCARLET SOLOMON Sex: F : 2000 Age: 20ySymptomsThe infection causes inflammation in the urethra and bladder. This causes many of the symptoms.The most common symptoms of a bladder infection are: Pain or burning when urinating Having to urinate more often than usual Urgent need to urinate Only a small amount of urine comes out Blood in urine Abdominal discomfort. This is usually in the lower abdomen above the pubic bone. Cloudy urine Strong- or bad-smelling urine Unable to urinate (urinary retention) Unable to hold urine in (urinary incontinence) Fever Loss of appetite Confusion (in older adults)CausesBladder infections are not contagious. You can't get one from someone else, from a toilet seat, orfrom sharing a bath.The most common cause of bladder infections is bacteria from the bowels. The bacteria get onto theskin around the opening of the urethra. From there, they can get into the urine and travel up to thebladder, causing inflammation and infection. This usually happens because of: Wiping improperly after urinating. Always wipe from front to back. Bowel incontinence Procedures such as having a catheter inserted Older age [address] [facility] Emergency Department [address] [place] [address] Phone #: ext- [phone] 02/29/2020 21:28 Patient: SCARLET SOLOMON Sex: F : 2000 Age: 20y Not emptying your bladder. This can allow bacteria a chance to grow in your urine. Dehydration Constipation Sex Use of a diaphragm for controlTreatmentBladder infections are diagnosed by a urine test. They are treated with antibiotics and usually clear upquickly without complications. Treatment helps prevent a more serious kidney infection.MedicinesMedicines can help in the treatment of a bladder infection: Take antibiotics until they are used up, even if you feel better. It is important to finish them to make sure the infection has cleared. You can use acetaminophen or ibuprofen for pain, fever, or discomfort, unless another medicine was prescribed. If you have chronic liver or kidney disease, talk with your healthcare provider before using these medicines. Also talk with your provider if you've ever had a stomach ulcer or gastrointestinal bleeding, or are taking blood-thinner medicines. If you are given phenazopydridine to reduce burning with urination, it will cause your urine to become a bright orange color. This can stain clothing.Care and preventionThese self-care steps can help prevent future infections: Drink plenty of fluids to prevent dehydration and flush out your bladder. Do this unless you must restrict fluids for other health reasons, or your doctor told you not to. Proper cleaning after going to the bathroom is important. Wipe from front to back after using the toilet to prevent the spread of bacteria. Urinate more often. Don't try to hold urine in for a long time. Wear loose-fitting clothes and cotton underwear. Avoid tight-fitting pants. Improve your diet and prevent constipation. Eat more fresh fruit and vegetables, and fiber, and less junk and fatty foods. Avoid sex until your symptoms are gone. [address] [facility] Emergency Department [address] [place] [address] Phone #: ext- [phone] 02/29/2020 21:28 Patient: SCARLET SOLOMON Sex: F : 2000 Age: 20y Avoid caffeine, alcohol, and spicy foods. These can irritate your bladder. Urinate right after intercourse to flush out your bladder. If you use control pills and have frequent bladder infections, discuss it with your doctor.Follow-up careCall your healthcare provider if all symptoms are not gone after 3 days of treatment. This is especiallyimportant if you have repeat infections.If a culture was done, you will be told if your treatment needs to be changed. If directed, you cancall to find out the results.If X-rays were done, you will be told if the results will affect your treatment.Call [phone] if any of the following occur: Trouble breathing Hard to wake up or confusion Fainting or loss of consciousness Rapid heart rateWhen to seek medical adviceCall your healthcare provider right away if any of these occur: Fever of 100.4F (38.0C) or higher, or as directed by your healthcare provider Symptoms are not better by the third day of treatment Back or belly (abdominal) pain that gets worse Repeated vomiting, or unable to keep medicine down Weakness or dizziness Vaginal discharge Pain, redness, or swelling in the outer vaginal area (labia) [phone] [employer]. [address] [place] [address], [place] [address]. All rights reserved. This information is not intended as asubstitute for professional medical care. Always follow your healthcare professional's instructions. [address] [facility] Emergency Department [address] [place] [address] Phone #: ext- [phone] 02/29/2020 21:28 Patient: SCARLET SOLOMON Sex: Bairon : 2000 Age: 20yF ever Control (Adult)A fever is a normal reaction of your body to an illness. The temperature itself usually isn't harmful. Itactually helps your body fight infections. You don't need to treat a fever unless you feel veryuncomfortable.Home careFollow these tips to take care of yourself at home: If you feel warm, check your temperature. Dress in light clothing. This will help you lose extra body heat through your skin. The fever will go up if you wear extra layers or wrap in blankets. Fever causes your body to lose water through evaporation. Drink plenty of fluids. These include water, ju ice, clear sodas, anthony soha, or lemonade.Fever medicinesYou can take acetaminophen every 4 to 6 hours if: You feel very uncomfortable Your oral temperature is 100.4F (38C) or higherIf you can't take or keep down oral medicine, ask your pharmacist for acetaminophen suppositories.You don't need a prescription for these.If the fever doesn't get better within 1 hour after you take acetaminophen, take ibuprofen. If thisworks, keep taking the ibuprofen every 6 to 8 hours.If you have chronic liver or kidney disease, talk with your healthcare provider before taking thesemedicines. Also talk with your provider if you ever had a stomach ulcer or GI (gastrointestinal)bleeding.If either medicine alone doesn't keep the fever down, you may switch off between the 2 medicinesevery 3 to 4 hours. But do this only if your healthcare provider has told you to. For example, takeibuprofen. Wait 3 hours. Then take acetaminophen. Wait 3 hours. Take ibuprofen, and so on. Followyour provider's instructions exactly.Don't give aspirin to anyone younger than age 19 who is ill with a fever. Aspirin can cause seriousside effects such as liver damage and Av syndrome. Although rare, Av syndrome is a veryserious illness usually found in children younger than age 15. The syndrome is closely linked to theuse of aspirin or aspirin-containing medicine during viral infection. [address] [facility] Emergency Department [address] [place] [address] Phone #: ext- [phone] 02/29/2020 21:28 Patient: SCARLET SOLOMON MRN: [id number] Sex: F : 2000 Age: 20yFollow-up careFollow up with your healthcare provider if you don't get better after 48 hours.When to seek medical adviceCall your healthcare provider right away if any of these occur: Fever, as directed by your healthcare provider, or: o Fever of 100.4F (38C) or above lasting for 24 to 48 hours o Fever lasting more than 3 days, even without other symptoms o Fever that happens after visiting a foreign country o Fever that happens within a month after visiting a country with malaria. Malaria is a serious illness. A fever can still be malaria even if you took medicine to prevent it. The medicine does not work in all cases. Confusion or trouble thinking Headache or stiff neck Flat, small, purplish red spots on your skin Low blood pressure Fast heart rate Fast (rapid) breathing You are You just had surgery, another medical procedure, or were just discharged from the hospital Use of medicines that suppress the immune system (immunosuppressants). These include Prednisone, cancer medicines, and organ transplant rejection medicines. If you are not sure about whether your medicines suppress your immune system, ask your healthcare provider.Call 911Someone should call 911 if you: Are having trouble breathin g or shortness of breath Are unresponsiveImportant reminder [address] [facility] Emergency Department [address] [place], [place] [address] Phone #: byi- [phone] 02/29/2020 21:28 Patient: SCARLET SOLOMON Sex: Bairon : 2000 Age: 20yCall your healthcare provider if you get a fever after visiting a place where infectious diseases arecommon. Many people apple picker a cold or other virus while traveling. This usually goes away without aproblem. But, some places have more serious diseases. Fever with certain other symptoms may mean you have a serious illness. Symptoms to watch for include diarrhea, skin rashes, insect bites,and skin boils, or infections. Your provider may ask you: What you did on your trip How long you were there Where you stayed (hotel, [place] house, tent) What you ate and drank If you were bitten by insects or other bugs If you swam in freshwater If you had sex or got a tattoo or piercing while you were thereCheck the [facility] to get more information about specific infectious diseases in the areas you havetraveled. [phone] [employer]. [address] [place] [address]. All rights reserved. This information is not intended as asubstitute for professional medical care. Always follow your healthcare professional's instructions. You have been given the following additional information: Headache, Unspecified Bladder Infection, Female (Adult) Fever Control (Adult) Do not work today, tomorrow.(Electronically signed by Samir Poole, Physician 03/01/2020 01:55) Name Value Range Interpretation Code Description Data Shira rce(s) Supporting Document(s) ID Date Data Source [id number] 02/29/2020 09:35:[address] [facility] 1 Clinical Report - Nurses [facility] Emergency Department [address] [place] [address] Phone #: ext- [phone] 02/29/2020 21:28 Patient: SCARLET SOLOMON Sex: F : 2000 Age: 20yTRIAGEArrived by private vehicle. Historian: patient. Accompanied by family.Triage time: 21:29 02/29/2020. Acuity: LEVEL 3.Chief Complaint: HEADACHE, DIZZINESS, WEAKNESS, NAUSEA and VOMITING.Onset. (2 days ago). ( diarrhea). --21:34 02/29/20 Rashmi Hodges R.N.21:29 02/29/20. BP: 1 /56. HR: 73. RR: 16. O2 saturation: 99%. Temp: 97.6 F. Pain level now 01/22.--21:34 02/29/20 Rashmi Hodges R.N.Weight: 81.6 kg. Height/Length: 66 inches. BMI: 29. --21:29 02/29/20 Rashmi Hodges R.N.MedicationsZoloft Oral. --21:32 02/29/20 Rashmi Hodges R.N. traZODone HCl Oral. --21:32 02/29/20 Rashmi Hodges R.N. Nexplanon Subcutaneous. --21:32 02/29/20 Rashmi Hodges R.N.AllergiesNo Known Drug Allergy. --21:32 02/29/20 Rashmi Hodges R.N.PROBLEMS:Gallstone(s).Insomnia. --21:32 02/29/20 Rashmi Hodges R.N.Abdominal Pain.UTI - Urinary Tract Infection.Ureterolithiasis.Renal Co lic.Pyelonephritis. --21:38 02/29/20 Travis Tai R.N.Kidney Infection: Resolved. --21:38 02/29/20 Travis Tai R.N.Medication/allergy information source: the patient. --21:34 02/29/20 Rashmi Hodges R.N.ADDITIONAL SURGERIES:Cholecystectomy. --21:32 02/29/20 Rashmi Hodges R.N.HistoryPAST MEDICAL HX: Immunizations: up-to-date. Last normal menstrual period unknown- nexplanon birthcontrol.SOCIAL HX: Never smoker. No alcohol use or drug use. The patient was offered HIV testing butdeclined and hepatitis C testing but declined. The patient has not traveled outside the [place] 2 Clinical Report - Nurses [facility] Emergency Department [address] [place] [address] Phone #: ext- [phone] 02/29/2020 21:28 Patient: SCARLET SOLOMON Sex: F : 2000 Age: 20y Infectious disease exposure: No infectious disease exposure. SELF HARM ASSESSMENT: Self harm assessment was performed. The patient answered "no" to the question(s) "Have you recently felt down, depressed, or hopeless?", "Do you have thoughts of harming or killing yourself?", "Do you have a plan for harming or killing yourself?", "Have you recently had thoughts about harming or killing others?", "Do you have any dangerous items in your possession?", "Have you noticed less interest or pleasure in doing things?", "Are you here because you tried to hurt yourself?" and "Have you ever tried to hurt yourself before today?". ABUSE ASSESSMENT: Abuse assessment. No suspicion of abuse. No report of abuse. NUTRITIONAL RISK ASSESSMENT: The nutritional risk assessment revealed no deficiencies. FUNCTIONAL ASSESSMENT: Functional assessment: no impairments noted. LEARNING NEEDS ASSESSMENT: The learning needs assessment revealed no barriers. FALL RISK ASSESSMENT: Fall risk assessment completed per protocol. SKIN INTEGRITY ASSESSMENT: Skin integrity risk assessment completed. No skin integrity risk identified. --21:34 02/29/20 Rashmi Hodges R.N.PHYSICAL [id number] 02/29/20. Ambulatory to room.GENERAL / NEURO / PSYCH: Alert. Oriented X 4. Appears in no acute distress.HEENT: No facial asymmetry noted. Mucous membranes are pink.RESPIRATORY: Respirations not labored. Chest nontender. Breath sounds within normal limits.CVS: Capillary refill less than 2 seconds. Pulses within normal limits.GI / : Abdomen soft and nontender and normal bowel sounds.SKIN: Skin intact. Skin is warm and dry. Normal skin turgor. --21:39 02/29/20 Travis Tai R.N.NURSING PROGRESS NOTESThe plan of care for this patient has been created. Monitoring of patient in place. Patient gowned. Headof bed elevated. Reassurance given. Bed placed in lowest position. Brakes of bed on. Patient readyfor evaluation. --21:34 02/29/20 Rashmi Hodges R.N. 21:50 02/29/2020 Site #1 started via IV in the left antecubital space with an 20g angiocath, with aseptic technique and good blood return; one attempt. Saline lock flushed with 10 mL saline. --21:50 02/29/20 Travis Tai R.N. 21:59 02/29/2020 Started 10 mg of Reglan (Metoclopramide HCl) IVPB in bag #1 50 mL; at 1000 mL/hr over 10 minute(s) via site #1. --22:04 02/29/20 Travis Tai R.N. Correction. --22:05 02/29/20 Travis Tai R.N. 3 Clinical Report - Nurses [facility] Emergency Department [address] [place] [address] Phone #: ext- [phone] 02/29/2020 21:28 Patient: SCARLET SOLOMON Sex: F : 2000 Age: 20y21:59 02/29/2020 Started 10 mg of Reglan (Metoclopramide HCl) IVPB in bag #1 50 mL; at 1000 mL/hrover 10 minute(s) via site #1. via IV pump. Allergies verified and confirmed 5 rights. IV patency established.IV site checked: no pain, redness, or swelling. IV flushed thoroughly pre- and post-medicationadministration. Informa tion reviewed with patient including reason for taking this medication, signs ofallergic reaction and precautions. Verbalizes understanding. --22:02/29/20 Travis Tai R.N.22:02/29/2020 Started bag #1 1000 mL IV Fluids NS; at 1500 mL/hr over 40 minute(s) via site #1 via IVpump. Allergies verified and confirmed 5 rights. IV patency established. IV site checked: no pain, redness,or swelling. IV flushed thoroughly pre- and post-medication administration. Information reviewed withpatient including reason for taking this medication, signs of allergic reaction and precautions. Verbalizesunderstanding. --22:02/29/20 Travis Tai R.NElder22:02/29/2020 Zofran (Ondansetron HCl) IVP 8 mg given over 2 minute(s) via site #1. Allergies verifiedand confirmed 5 rights. IV patency established. IV site checked: no pain, redness, or swelling. IV flushedthoroughly pre- and post-medication administration. IVP given by RN. Information reviewed with patientincluding reason for taking this medication, signs of allergic reaction and precautions. Verbalizesunderstanding. --22:02/29/20 Travis Tai R.N.22:02/29/2020 Toradol (Ketorolac Tromethamine) IVP 15 mg given over 2 minute(s) via site #1.Allergies verified and confirmed 5 rights. IV patency established. IV site checked: no pain, redness, orswelling. IV flushed thoroughly pre- and post-medication administration. IVP given by RN. Informationreviewed with patient including reason for taking this medication, signs of allergic reaction and precautions.Verbalizes understanding. --22:03 02/29/20 Travis Tai R.N.22:04 02/29/2020 Benadryl (diphenhydrAMINE HCl) IVP 25 mg given over 2 minute(s) via site #1. Allergiesverified and confirmed 5 rights. IV patency established. IV site checked: no pain, redness, or swelling. IVflushed thoroughly pre- and post-medication administration. IVP given by RN. Information reviewed withpatient including reason for taking this medication, signs of allergic reaction, precautions and sedativewarning. Verbalizes u nderstanding. --22:04 02/29/20 Travis Tai RFranko22:11 02/29/2020 Reglan IVPB via IV site #1 Discontinued: bag #1 completed. Total amount infused: 50mL. IV patency established. IV site checked: no pain, redness, or swelling. IV flushed thoroughly. --22: Travis Tai R.N.Patient transported to NH by wheelchair with dietetic technician. --22:49 02/29/20 Heath Yu RN23:30 02/29/2020 Started 1 gm of ROCEPHIN (1GM/50ML) (cefTRIAXone Sodium) IVPB in bag #1 50 mL;at 100 mL/hr via site #1. via IV pump. Allergies verified and confirmed 5 rights. IV patency established. IVsite checked: no pain, redness, or swelling. IV flushed thoroughly pre- and post-medication administration.Information reviewed with patient including reason for taking this medication. Verbalizes understanding.--23:31 02/29/20 Marti Yu R.N.00:05 03/01/2020 ROCEPHIN (1GM/50ML) IVPB via IV site #1 Discontinued: completed. Total amountinfused: 50 mL. IV patency established. IV site checked: no pain, redness, or swelling. IV flushed 4 Clinical Report - Nurses [facility] Emergency Department [address] [place] [address] Phone #: ext- [phone] 02/29/2020 21:28 Patient: SCARLET SOLOMON Sex: F : 2000 Age: 20y thoroughly. --00:54 03/01/20 Heath Yu RN 00:38 03/01/2020 IV Fluids NS via IV site #1 Discontinued: discontinued upon discharge. Total amount infused: 960 mL. IV patency established. IV site checked: no pain, redness, or swelling. IV flushed thoroughly. --00:53 03/01/20 Heath Yu RN.DISPOSITION / DISCHARGE [place] Coma Scale: 15- eyes open- spontaneous (4); best verbal response- oriented (5); best motor response- obeys commands (6). Departure time: 00:53 03/01/2020. Condition at departure: improved. No learning barriers present. Reviewed medication(s) side effects, precautions, dosing and course information. Prescription(s) sent electronically to pharmacy. Reviewed fever care instructions. Reviewed referral to family practice for followup. Reviewed need for increased fluid intake. Patient verbalized understanding. Written instructions provided in [place]. The patient was discharged home and accompanied by spouse. She left ambulatory and via private vehicle. Spouse driving. --00:53 03/01/20 Heath Yu RN 00:50 03/01/20. BP: 104/46 (regular adult cuff) taken on the right arm, via an automated monitor, while lying. MAP: 65. HR: 60 (regular, normal rate and strong). RR: 16 (regular, unlabored and normal). O2 saturation: 97% on room air. Temp: 98.7 F (oral). Pain level now: 0/10. --00:53 03/01/20 Heath Yu RN.Locked/Released at 03/01/2020 00:57 by Heath Yu RN Name Value Range Interpretation Code Description Data Shira rce(s) Supporting Document(s) ID Date Data Source [id number] 02/29/2020 09:35:[address] [facility] 1 Clinical Report - Physicians/Mid Levels [facility] Emergency Department [address] [place] [address] Phone #: ext- [phone] 02/29/2020 21:28 Patient: SCARLET SOLOMON Sex: F : 2000 Age: 20y Time Seen: 21:35 02/29/2020. Arrived- By private vehicle. Historian- patient.HISTORY OF PRESENT ILLNESS Chief Complaint: HEADACHE. N/V/Dizziness/ Weakness. Is still present. This started today. It was abrupt in onset and has been constant. It is described as "pain" and sharp and "worse MCRAE she has ever had". Located in the right temporal region and region of the right eye. At its maximum, severity described as 6 / 10. When seen in the E.D., severity described as 6 / 10. The patient has had nausea, weakness, and vomiting. No preceding symptoms, blurred vision, photophobia or numbness. Similar symptoms previously. Patient has had similar symptoms several times. Recent medical care: The patient was seen recently at this facility in the emergency department.REVIEW OF SYSTEMS Last normal menstrual period unknown. Uses depo implants. No fever, muscle aches, sinus pressure, ear pain or sore throat. No carbon monoxide exposure, tick bite, head injury, chest pain or difficulty breathing. No abdominal pain, diarrhea, pain with urination, skin rash or enlarged lymph nodes. No back pain.PAST HISTORY History of chronic headaches. Problems: Abdominal Pain. UTI - Urinary Tract Infection. Ureterolithiasis. Renal Colic. Pyelonephritis. Gallstone(s). Insomnia. Kidney Infection [Resolved]. Additional Surgeries: Cholecystectomy. Medications: Nexplanon Subcutaneous. traZODone HCl Oral. Zoloft Oral. 2 Clinical Report - Physicians/Mid Levels [facility] Emergency Department [address] [place] [address] Phone #: ext- [phone] 02/29/2020 21:28 Patient: SCARLET SOLOMON Sex: F : 2000 Age: 20y Allergies: No Known Drug Allergy.SOCIAL HISTORY Never smoker. No alcohol use or drug use.PHYSICAL EXAM Vital Signs: 02/29/2020 21:29 BP: 119/56. MAP: 77. HR: 73. RR: 16. O2 saturation: 99%. Temp: 97.6 F. Have been reviewed as abnormal. Hypotensive. Oxygen saturation normal. Appearance: Alert. No acute distress. Eyes: Pupils equal, round and reactive to light. Eyes normal inspection. ENT: Ears normal. Nose normal. Pharynx normal. Neck: Normal inspection. Neck supple. CVS: Normal heart rate. Heart sounds normal. Respiratory: No respiratory distress. Breath sounds normal. Abdomen: Soft. Mild tenderness diffusely. No organomegaly. Back: Normal inspection. Skin: Skin warm and dry. Normal skin color. No rash. Normal skin turgor. Extremities: Extremities exhibit normal ROM. No lower extremity edema. Neuro: Oriented X 3. Alert. Mood/affect normal. Speech normal. Cranial nerves normal (as tested). No cerebellar findings. No motor deficit. No sensory deficit. Reflexes normal.LABS, X-RAYS, AND EKG Laboratory Tests: Laboratory tests have been ordered, with results reviewed and considered in the medical decision making process. CBC w Diff: (STELLA: 02/29/2020 21:50) ( MsgRcvd 02/29/2020 22:11) Final results Test Result Flag Units (Reference) CBC W/AUTOMATED DIFF COMPLETE BLOOD COUNT WBC 12.6 H 10/uL (4.2 - 11.0) RBC 4.35 10/uL (4.20 - 5.40) HEMOGLOBIN 13.2 g/dL (12.0 - 16.0) HEMATOCRIT 39.2 % (37.0 - 47.0) MCV 90.1 fL (81.0 - 101) MCH 30.3 pg (27.0 - 34.0) MCHC 33.7 g/dL (31.0 - 36.0) RDW 11.7 % (11.5 - 14.5) PLATELETS 373 10/uL (150 - 450) MPV 8.7 fL (7.4 - 10.4) NEUT 67.0 % (37.0 - 80.0) LYMPH 22.8 L % (25.0 - 40.0) MONO 7.6 % (3.0 - 8.0) EOS 1.9 % (0.0 - 7.0) BASO 0.5 % (0.0 - 2.5) %IG 0.2 H % (0.0 - 0.0) %NRBC 0.0 % (0.0 - 0.0) #NEUT 8.45 H 10/uL (2.00 - 6.90) #LYMPH 2.87 10/uL (0.60 - 3.40) #MONO 0.96 H 10/uL (0.00 - 0.90) #EOS 0.24 10/uL (0.00 - 0.70) 3 Clinical Report - Physicians/Mid Levels [facility] Emergency Department [address] [place] [address] Phone #: ext- [phone] 02/29/2020 21:28 Patient: SCARLET SOLOMON Sex: F : 2000 Age: 20y #BASO 0.06 10/uL (0.00 - 0.20) #IG 0.03 10/uL (0.00 - 0.10) #NRBC 0.00 10/uL (0.00 - 0.00) MANUAL DIFF NOT INDICATED RBC MORPH NOT INDICATEDCMP: (STELLA: 02/29/2020 21:50) ( MsgRcvd 02/29/2020 22:27) Final results Test Result Flag Units (Reference) COMPREHENSIVE METABOLIC PANEL COMPREHENSIVE METABOLIC PANEL SODIUM 136 mEq/L (134 - 153) POTA SSIUM 3.8 mEq/L (3.6 - 5.0) CHLORIDE 101 mEq/L (98 - 107) CO2 25 MEQ/L (22 - 30) GLUCOSE 118 H MG/DL (65 - 110) BUN 17 MG/DL (7 - 21) CREATININE 0.6 L MG/DL (0.7 - 1.5) BUN/CREAT 28 H (8 - 27) TOTAL PROTEIN 7.0 G/DL (6.3 - 8.2) ALBUMIN 4.4 G/DL (3.9 - 5.0) GLOBULIN 2.6 GM/DL (2.4 - 3.2) A/G RATIO 1.7 (0.8 - 2.0) CALCIUM 9.3 MG/DL (8.4 - 10.2) TOTAL BILI 0.7 MG/DL (0.2 - 1.3) ALKALINE PHOS 95 U/L (38 - 126) SGOT/AST 29 U/L (5 - 40) SGPT/ALT 39 U/L (7 - 56) ANION GAP 10.0 mmol/L (8.0 - 16.0) AGE 20 yrs NON-AA GFR >60 mL/min AFR AMER GFR >60 mL/min Male GFR Interprentation 20-49 yrs >60 mL/min Puiqja96-46 yrs >56 mL/min Normal 60-69 yrs >49 mL/min Normal 70-79yrs>42 mL/min Normal 80 and above >35 mL/min Normal Female GFRInterpretation 20-39 yrs >60 mL/min Normal 40-49 yrs >58 mL/minNormal 50-59 yrs >51 mL/min Normal 60-69 yrs >45 mL/min Flbzdl78-12 yrs >39 mL/min Normal 80 and above >32 mL/min NormalLipase: (STELLA: 02/29/2020 21:50) ( [facility] 02/29/[facility] 22:27) Final results Test Result Flag Units (Reference) LIPASE 44 U/L (13 - 60)Urinalysis: (STELLA: 02/29/2020 22:15) ( [facility] 02/29/2020 22:31) Final results Test Result Flag Units (Reference) URINALYSIS URINALYSIS SOURCE R COLOR Yellow (NORMAL: Yello CLARITY Clear (NORMAL: Clear SPEC GRAVITY 1.020 (1.001 - 1.030 pH 6 (5 - 9) GLUCOSE Negative (NORMAL: Negat BILIRUBIN Negative (NORMAL: Negat KETONE Negative (NORMAL: Negat PROTEIN Negative (NORMAL: Negat NITRITE Negative (NORMAL: Negat 4 Clinical Report - Physicians/Mid Levels [facility] Emergency Department [address] [place] [address] Phone #: ext- [phone] 02/29/2020 21:28 Patient: SCARLET SOLOMON Sex: F : 2000 Age: 20y BLOOD 25 A (NORMAL: Negat LEUK EST Negative (NORMAL: Negat UROBILINOGEN 1.0 (less than 1.0 MICROSCOPIC See Below WBC 1 - 3 (NORMAL: NONE RBC 1 - 3 (NORMAL: NONE EPITHELIAL FEW (NORMAL: NONE BACTERIA Trace (NORMAL: NONE Beta-HCG, Qual Urine: (STELLA: 02/29/2020 22:15) ( MsgRcvd 02/29/2020 22:28) Final results Test Result Flag Units (Reference) HCG URINE QUAL NEGATIVE (NORMAL: NEGAT HCG URINE QL REENTER NEGATIVE (NORMAL: NEGAT { KIT LOT # [id number] ){ KIT EXP DATE [id number] ){ PROCEDURAL CONTROL VALID ).PROGRESS AND PROCEDURES Course of Care: 22:37 Feb 29 2020. ED care transferred. Case discussed with Dr Poole. Assumed care. Brief hx: reucrring UTI's and MCRAE's. Pending items: CT / MRI results. 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 Chronic UTI. Needs Urology referral. Expected disposition: discharge from ED.(Electronically signed by EDIL Moreno 02/29/2020 22:39) Time Seen: 22:45 02/29/2020 (Dr. Poole assumes care from EDIL Estrada). ED care transferred. Case discussed with receiving physician. Arrived- By private vehicle. Historian- patient and spouse. Disposition decision: 00:26 03/01/2020.HISTORY OF PRESENT ILLNESS Chief Complaint: HEADACHE. Dizzy, weak, nausea / vomiting. Is still present. This started 2 days ago. It was abrupt in onset and has been waxing/waning. Onset during light activity. Described as a global headache. No neck pain. Not located in the facial region. When seen in the E.D., severity described as 6 / 10. Modifying factors: worsened by bright light. The patient has had mild photophobia, nausea, generalized weakness, and vomiting. No preceding 5 Clinical Report - Physicians/Mid Levels [facility] Emergency Department [address] [place] [address] Phone #: ext- [phone] 02/29/2020 21:28 Patient: SCARLET SOLOMON Sex: F : 2000 Age: 20y symptoms, blurred vision or numbness. No recent travel. Similar symptoms previously. Patient has had similar symptoms occasionally. Recent medical car e: The patient was seen recently at this facility in the emergency department. ( Seen here 02/09/20 for abdominal pain).REVIEW OF SYSTEMS No fever, muscle aches, sinus pressure, ear pain or sore throat. No carbon monoxide exposure, tick bite, head injury, chest pain or difficulty breathing. No cough, abdominal pain, diarrhea, pain with urination or skin rash. No enlarged lymph nodes or back pain.PAST HISTORY Past history not negative. See nurses notes. Renal disease. Other disease. Depression Insomnia Abdominal pain UTI Ureterolithiasis Renal colic Pyelonephritis. Surgeries: Cholecystectomy.SOCIAL HISTORY Never smoker. No alcohol use or drug use. No recent travel.ADDITIONAL NOTES The nursing notes have been reviewed with agreement regarding the chief complaint, HPI, ROS, PMH and patient medications and allergies.PHYSICAL EXAM Vital Signs: 03/01/2020 00:50 BP: lying 104/46. MAP: 65. HR: 60. RR: 16. O2 saturation: 97% on room air. Temp: 98.7 F. Pain level now: 0/10. Have been reviewed and appear t o be correct. Hypotensive. Heart rate normal. Respiratory rate normal. Temperature normal. Oxygen saturation normal. Appearance: No acute distress. Lethargic (Sleeping soundly on my exam.). No apparent distress. Not alert. Eyes: Pupils equal, round and reactive to light. Eyes normal inspection. ENT: Nose normal. Pharynx normal. Neck: Normal inspection. Neck supple. CVS: Normal heart rate and rhythm. Heart sounds normal. Pulses normal. Respiratory: No respiratory distress. Painless inspiration. Breath sounds normal. Abdomen: Soft and nontender. No organomegaly. 6 Clinical Report - Physicians/Mid Levels [facility] Emergency Department [address] [place] [address] Phone #: ext- [phone] 02/29/2020 21:28 Patient: SCARLET SOLOMON Sex: F : 2000 Age: 20y Back: Normal inspection. Skin: Skin warm and dry. Normal skin color. No rash. Normal skin turgor. Extremities: Extremities exhibit normal ROM. No lower extremity edema. Neuro: Oriented X 3. Alert. Mood/affect normal. Speech normal. Cranial nerves normal (as tested). No cerebellar findings. No motor deficit. No sensory deficit.LABS, X-RAYS, AND EKG KUB: Normal abdominal study. CT Head: No acute disease. Laboratory Tests: Laboratory tests have been ordered, with results reviewed and considered in the medical decision making process. CBC w Diff: (STELLA: 02/29/2020 21:50) ( MsgRcvd 02/29/2020 22:11) Final results Test Result Flag Units (Reference) CBC W/AUTOMATED DIFF COMPLETE BLOOD COUNT WBC 12.6 H 10/uL (4.2 - 11.0) RBC 4.35 10/uL (4.20 - 5.40) HEMOGLOBIN 13.2 g/dL (12.0 - 16.0) HEMATOCRIT 39.2 % (37.0 - 47.0) MCV 90.1 fL (81.0 - 101) MCH 30.3 pg (27.0 - 34.0) MCHC 33.7 g/dL (31.0 - 36.0) RDW 11.7 % (11.5 - 14.5) PLATELETS 373 10/uL (150 - 450) MPV 8.7 fL (7.4 - 10.4) NEUT 67.0 % (37.0 - 80.0) LYMPH 22.8 L % (25.0 - 40.0) MONO 7.6 % (3.0 - 8.0) EOS 1.9 % (0.0 - 7.0) BASO 0.5 % (0.0 - 2.5) %IG 0.2 H % (0.0 - 0.0) %NRBC 0.0 % (0.0 - 0.0) #NEUT 8.45 H 10/uL (2.00 - 6.90) #LYMPH 2.87 10/uL (0.60 - 3.40) #MONO 0.96 H 10/uL (0.00 - 0.90) #EOS 0.24 10/uL (0.00 - 0.70) #BASO 0.06 10/uL (0.00 - 0.20) #IG 0.03 10/uL (0.00 - 0.10) #NRBC 0.00 10/uL (0.00 - 0.00) MANUAL DIFF NOT INDICATED RBC MORPH NOT INDICATED CMP: (STELLA: 02/29/2020 21:50) ( MsgRcvd 02/29/2020 22:27) Final results Test Result Flag Units (Reference) COMPREHENSIVE METABOLIC PANEL COMPREHENSIVE METABO LIC PANEL SODIUM 136 mEq/L (134 - 153) POTASSIUM 3.8 mEq/L (3.6 - 5.0) CHLORIDE 101 mEq/L (98 - 107) CO2 25 MEQ/L (22 - 30) GLUCOSE 118 H MG/DL (65 - 110) BUN 17 MG/DL (7 - 21) CREATININE 0.6 L MG/DL (0.7 - 1.5) 7 Clinical Report - Physicians/Mid Levels [facility] Emergency Department [address] [place] [address] Phone #: ext- [phone] 02/29/2020 21:28 Patient: SCARLET SOLOMON Sex: F : 2000 Age: 20y BUN/CREAT 28 H (8 - 27) TOTAL PROTEIN 7.0 G/DL (6.3 - 8.2) ALBUMIN 4.4 G/DL (3.9 - 5.0) GLOBULIN 2.6 GM/DL (2.4 - 3.2) A/G RATIO 1.7 (0.8 - 2.0) CALCIUM 9.3 MG/DL (8.4 - 10.2) TOTAL BILI 0.7 MG/DL (0.2 - 1.3) ALKALINE PHOS 95 U/L (38 - 126) SGOT/AST 29 U/L (5 - 40) SGPT/ALT 39 U/L (7 - 56) ANION GAP 10.0 mmol/L (8.0 - 16.0) AGE 20 yrs NON-AA GFR >60 mL/min AFR AMER GFR >60 mL/min Male GFR Interprentation 20-49 yrs >60 mL/min Vhosza05-50 yrs >56 mL/min Normal 60-69 yrs >49 mL/min Normal 70-79yrs>42 mL/min Normal 80 and above >35 mL/min Normal Female GFRInterpretation 20-39 yrs >60 mL/min Normal 40-49 yrs >58 mL/minNormal 50-59 yrs >51 mL/min Normal 60-69 yrs >45 mL/min Nunjbc57-11 yrs >39 mL/min Normal 80 and above >32 mL/min NormalLipase: (STELLA: 02/29/2020 21:50) ( MsgRcvd 02/29/2020 22:27) Final results Test Result Flag Units (Reference) LIPASE 44 U/L (13 - 60)Urinalysis: (STELLA: 02/29/2020 22:15) ( MsgRcvd 03/01/2020 00:26) Correction to results Test Result Flag Units (Reference) URINALYSIS URINALYSIS SOURCE R COLOR yellow (NORMAL: Yello Above is a corrected result. Previously reported on ( MsgRcvd 02/29/2020 22:31) as: COLOR Yellow (NORMAL: Yello CLARITY clear (NORMAL: Clear Above is a corrected result. Previously reported on ( MsgRcvd 02/29/2020 22:31) as: CLARITY Clear (NORMAL: Clear SPEC GRAVITY 1.010 (1.001 - 1.030 Above is a corrected result. Previously reported on ( MsgRcvd 02/29/2020 22:31) as: SPEC GRAVITY 1.020 (1.001 - 1.030 pH 6 (5 - 9) GLUCOSE NORM (NORMAL: Negat Above is a corrected result. Previously reported on ( MsgRcvd 02/29/2020 22:31) as: GLUCOSE Negative (NORMAL: Negat BILIRUBIN NEG (NORMAL: Negat Above is a corrected result. Previously reported on ( MsgRcvd 02/29/2020 22:31) as: BILIRUBIN Negative (NORMAL: Negat KETONE NEG (NORMAL: Negat 8 Clinical Report - Physicians/[facility] Emergency Department [address] [place] [address] Phone #: ext- [phone] 02/29/2020 21:28 Patient: SCARLET SOLOMON Sex: F : 2000 Age: 20yAbove is a corrected result. Previously reported on ( MsgRcvd 02/29/2020 22:31) as: KETONE Negative (NORMAL: Negat PROTEIN 500 A (NORMAL: Negat Above is a corrected result. Previously reported on ( MsgRcvd 02/29/2020) as: PROTEIN Negative (NORMAL: Negat NITRITE NEG (NORMAL: Negat Above is a corrected result. Previously reported on ( MsgRcvd 02/29/2020) as: NITRITE Negative (NORMAL: Negat BLOOD 10 A (NORMAL: Negat Above is a corrected result. Previously reported on ( MsgRcvd 02/29/2020 22:31) as: BLOOD 25 A (NORMAL: Negat LEUK EST 25 (NORMAL: N egat Above is a corrected result. Previously reported on ( MsgRcvd 02/29/2020) as: LEUK EST Negative (NORMAL: Negat UROBILINOGEN NOR (less than 1.0 Above is a corrected result. Previously reported on ( [facility] 02/29/2020 22:31) as: UROBILINOGEN 1.0 (less than 1.0 MICROSCOPIC See Below WBC 1 - 3 (NORMAL: NONE RBC 1 - 3 (NORMAL: NONE EPITHELIAL FEW (NORMAL: NONE BACTERIA Trace (NORMAL: NONEBeta-HCG, Qual Urine: (STELLA: 02/29/2020 22:15) ( [facility] 02/29/2020 22:28) Final results Test Result Flag Units (Reference) HCG URINE QUAL NEGATIVE (NORMAL: NEGAT HCG URINE QL REENTER NEGATIVE (NORMAL: NEGAT { KIT LOT # [id number] ){ KIT EXP [id number] ){ PROCEDURAL CONTROL VALID)Abdomen 1 View: (STELLA: 02/29/2020 21:40) ( [facility] 03/01/2020 01:10) In Progress Exam ABDOMEN 1 VIEW [facility] [address] [facility] [place] [address] PHONE: [phone] FAX: [phone] Name .................. : JUANITO Waddell Acct Number.................. : [id number] ROOM. ................. : TR-03 MR Number ................... : [id number] Stay type ............. : E/R Discharge Date......... ... : Admit Date ......... : 02/29/20 Admit Phys .................... : VENERUS BR Date of ....... : 2000 Family Phys ................... : UNKNOWN CO Phone .................. : [phone] Age ................................ : 20 Film# .................. .:[id number] Sex ................................. : F Unsigned transcriptions are preliminary reports and do not represent a medical or legal document 9 Clinical Report - Physicians/Mid Levels [facility] Emergency Department [address] [place] [address] Phone #: ext- [phone] 02/29/2020 21:28 Patient: SCARLET SOLOMON Sex: F : 2000 Age: 20y ABDOMEN 1 VIEW [id number] COMP LETE:02/29/20 21:40 [id number] Reason(s): Flank Pain Right ABDOMEN: SINGLE VIEW HISTORY: Right flank pain. COMPARISON: CT study from 02/10/20. FINDINGS: Radiographically, no urolithiasis is evident. Cholecystectomy clips are present. Nonobstructive bowel gas pattern. No organomegaly. Clear lung bases. No osseous abnormality. IMPRESSION: Normal examination. No urolithiasis. Electronically Reviewed and Signed By DCTNAME , SIGNDATE, APM Transcribe Initials: BENJAMIN , Transcribe Date: 02/29/20 23:21, Dictation Date: <<REPDIST>> Page 1of 1CT Head W/O Cont: (STELLA: 02/29/2020 21:40) ( MsgRcvd 03/01/2020 01:11) In Progress Exam CT HEAD W/O CONTRAST [place] [address] [place] [address] PHONE: [phone] FAX: [phone] Name .................. : JUANITO NOVAK Bairon Acct Number.................. : [id number] ROOM. ................. : TR-03 MR Number ................... : [id number] Stay type ............. : E/R Discharge Date......... ... : Admit Date ......... : 02/29/20 Admit Phys .................... : RAMIN ANTHONY Date of ....... : 2000 Family Phys ................... : UNKNOWN CO Phone .................. : [phone] Age ................................ : 20 Film# .................. .:[id number] Sex ................................. : F Unsigned transcriptions are preliminary reports and do not represent a medical or legal document CT HEAD W/O CONTRAST [id number] COMPLETE:02/29/20 21:40 [id number] Reason(s): Head Pain CT OF THE HEAD WITHOUT CONTRAST: 10 Clinical Report - Physicians/Mid Levels [facility] Emergency Department [address] [place] [address] Phone #: ext- [phone] 02/29/2020 21:28 Patient: SCARLET SOLOMON Sex: F : 2000 Age: 20y HISTORY: Head pain. COMPARISON: None. FINDINGS: No acute intracranial hemorrhage, midline shift, mass effect or abnormal extra-axial fluid. Moreira- white differentiation is preserved. The basal cisterns are patent. No hydrocephalus. Well-aerated paranasal sinuses and mastoid air cells. IMPRESSION: No acute intracranial abnormality. While performing the above CT examination, radiation dose reduction was accomplished utilizing automated exposure control, adjusting of the mA and kV based on the patient's body size and/or the use of imperative reconstructive techniques. CT dose: 814.8 mGycm Electronically Reviewed and Signed By DCTNAME , SIGNDATE, APM Transcribe Initials: BENJAMIN , Transcribe Date: 02/29/20 23:19, Dictation Date: <<REPDIST>> Page 1 of 1.PROGRESS AND PROCEDURES Course of Care: 00:Mar 01 2020. Patient is stable. Symptoms much better. 00:Mar 01 2020. Pt. sound asleep and headache gone. I spoke with pt. and her spouse and they want to go home. She has a slight UTI which I will send an Rx for. Disposition: Discharged home in good and improved condition (00:Mar 01 2020). Condition: good.CLINICAL IMPRESSION Episodic, poorly controlled tension headache. No migraine headache. Acute urinary tract infection with cystitis. No hematuria. Not associated with indwelling catheter or obstruction.INSTRUCTIONS 11 Clinical Report - Physicians/Mid Levels [facility] Emergency Department [address] [place] [address] Phone #: ext- [phone] 02/29/2020 21:28 Patient: SCARLET SOLOMON Sex: F : 2000 Age: 20y Alternate Tylenol (Acetaminophen) or Motrin (Ibuprofen) for temperature greater than 100.4 degrees by tympanic thermometer. Take according to label instructions. Do not work today, tomorrow. (Drink plenty of fluids.). Warnings: Further evaluation is necessary. GENERAL WARNINGS: Return or contact your physician immediately if your condition worsens or changes unexpectedly, if not improving as expected, or if other problems arise. Prescription Medications: ibuprofen 800 mg tablet Take 1 tablet every eight hours as needed for 10 days -- for pain / fever. Dispense 30 tablet. Refills: 1. Substitution permitted. Pharmacy - [facility] [address] ; [place] [address]. . Cipro 500 mg tablet Take 1 tablet twice a day for 7 days -- for UTI. Dispense 14 tablet. Refills: 0. Substitution permitted. [facility] - [facility] [address] ; [place] [address]. Phone: . Follow-up: Follow up with your doctor in three days if not better. Call for an appointment. Reason for referral: evaluation, treatment and UTI / Headache. Understanding of the discharge instructions verbalized by patient and family.(Electronically signed by Samir Poole, Physician 03/01/2020 01:55) Name Value Range Interpretation Code Description Data Shira rce(s) Supporting Document(s) ID Date Data Source [id number] 03/01/2020 12:24:[address] [facility] Name Value Range Interpretation Code Description Data Shira rce(s) Supporting Document(s) URINALYSIS [facility] yulia [facility] yellow NORMAL: Yellow [facility] CLARITY clear NORMAL: Clear [facility] Specific gravity of Urine by Test strip 1.010 1.001 - 1.030 [facility] pH 6 5 - 9 [facility] Glucose [Mass/volume] in Urine by Test strip NORM NORMAL: Negat junie [facility] Bilirubin.total [Presence] in Urine by Test strip NEG NORMAL: Negative [facility] Ketones [Presence] in Urine by Test strip NEG NORMAL: Negative [facility] Protein [Mass/volume] in Urine by Test strip 500 NORMAL: Negat junie [facility] Nitrite [Presence] in Urine by Test strip NEG NORMAL: Negative [facility] BLOOD 10 NORMAL: Negative [facility] Leukocyte esterase [Presence] in Urine by Test strip 25 MAURIZIO L: Negative [facility] Urobilinogen [Mass/volume] in Urine by Test strip NOR less rocky n 1.0 mg/dL [facility] MICROSCOPIC See Below [facility] ital WBC 1 - 3 NORMAL: NONE SEEN [facility] Erythrocytes [#/volume] in Urine by Test strip 1 - 3 NORMAL: NON E SEEN [facility] EPITHELIAL FEW NORMAL: NONE SEEN [facility] Bacteria [Presence] in Urine sediment by Light microscopy Tr kristina NORMAL: NONE SEEN [facility] ID Date Data Source [id number] 02/29/2020 10:28:[address] [facility] Name Value Range Interpretation Code Description Data Shira rce(s) Supporting Document(s) HCG URINE QUAL NEGATIVE NORMAL: NEGATIVE [facility] HCG URINE QL REENTER NEGATIVE NORMAL: NEGATIVE [facility] { KIT LOT # [id number] ){ KIT EXP DATE 195667 ){ PROCEDURAL CONTROL VALID ) ID Date Data Source [id number] 02/29/2020 10:26:[address] [facility] Name Value Range Interpretation Code Description Data Shira rce(s) Supporting Document(s) Lipase [Enzymatic activity/volume] in Serum or Plasma 44 U/L 13 - 60 [facility] ID Date Data Source [id number] 02/29/2020 10:26:[address] [facility] Name Value Range Interpretation Code Description Data Shira rce(s) Supporting Document(s) COMPREHENSIVE METABOLIC PANEL [facility] COMPREHENSIVE METABOLIC PANEL Sodium [Moles/volume] in Serum or Plasma 136 mEq/L 134 - 153 [facility] Potassium [Moles/volume] in Serum or Plasma 3.8 mEq/L 3.6 - 5.0 [facility] Chloride [Moles/volume] in Serum or Plasma 101 mEq/L 98 - 107 [facility] Carbon dioxide, total [Moles/volume] in Serum or Plasma 25 MEQ/L 22 - 30 [facility] Glucose [Mass/volume] in Serum or Plasma 118 MG/DL 65 - [address] [facility] BUN 17 MG/DL 7 - 21 [facility] Creatinine [Mass/volume] in Serum or Plasma 0.6 MG/DL 0.7 - 1.[address] [facility] BUN/CREAT 28 8 - 27 H [facility] Protein [Mass/volume] in Serum or Plasma 7.0 G/DL 6.3 - 8.2 [facility] Albumin [Mass/volume] in Serum or Plasma 4.4 G/DL 3.9 - 5.0 [facility] Globulin [Mass/volume] in Serum by calculation 2.6 GM/DL 2.4 - 3.2 [facility] A/G RATIO 1.7 0.8 - 2.0 [facility] Calcium [Mass/volume] in Serum or Plasma 9.3 MG/DL 8.4 - 10.2 [facility] Bilirubin.total [Mass/volume] in Serum or Plasma 0.7 MG/DL 0.2 - 1.3 [facility] Alkaline phosphatase [Enzymatic activity/volume] in Serum or Plasma 95 U/L 38 - 126 [facility] Aspartate aminotransferase [Enzymatic activity/volume] in Serum or Plasma 29 U/L 5 - 40 [facility] Alanine aminotransferase [Enzymatic activity/volume] in Seru m or Plasma 39 U/L 7 - 56 [facility] Anion gap 3 in Serum or Plasma 10.0 mmol/L 8.0 - 16.0 [facility] AGE 20 yrs [facility] NON-AA GFR >60 mL/min [facility] ital AFR AMER GFR >60 mL/min [facility] Male GFR In terprentation 20-49 yrs >60 mL/min Normal 50-59 yrs >56 mL/min Normal 60-69 yrs >49 mL/min Normal 70-79yrs >42 mL/min Normal 80 and above >35 mL/min Normal Female GFR Interpretation 20-39 yrs >60 mL/min Normal 40-49 yrs >58 mL/min Normal 50-59 yrs >51 mL/min Normal 60-69 yrs >45 mL/min Normal 70-79 yrs >39 mL/min Normal 80 and above >32 mL/min Normal ID Date Data Source [id number] 02/29/2020 10:11:[address] [facility] Name Value Range Interpretation Code Description Data Shira rce(s) Supporting Document(s) CBC W/AUTOMATED DIFF [facility] COMPLETE BLOOD COUNT Leukocytes [#/volume] in Blood by Automated count 12.6 10^3/uL 4.2 - 11.[address] [facility] Erythrocytes [#/volume] in Blood by Automated count 4.35 10^6/uL 4. 20 - 5.40 [facility] Hemoglobin [Mass/volume] in Blood 13.2 g/dL 12.0 - 16.0 [facility] Hematocrit [Volume Fraction] of Blood by Automated count 39.2 % 3 7.0 - 47.0 [facility] Erythrocyte mean corpuscular volume [Entitic volume] by Auto mated count 90.1 fL 81.0 - 101 [facility] Erythrocyte mean corpuscular hemoglobin [Entitic mass] by Automated count 30.3 pg 27.0 - 34.0 [facility] Erythrocyte mean corpuscular hemoglobin concentration [Mass/volume] by Automated count 33.7 g/dL 31.0 - 36.0 [facility] Erythrocyte distribution width [Ratio] by Automated count 11.7 % 11.5 - 14.5 [facility] Platelets [#/volume] in Blood by Automated count 373 10^3/uL 150 - [address] [facility] Platelet mean volume [Entitic volume] in Blood by Automated count 8.7 fL 7.4 - 10.4 [facility] Neutrophils/100 leukocytes in Blood by Automated count 67.0 % 37. 0 - 80.0 [facility] Lymphocytes/100 leukocytes in Blood by Manual count 22.8 % 25.0 - 40.[address] [facility] Monocytes/100 leukocytes in Blood by Automated count 7.6 % 3.0 - 8.0 [facility] Eosinophils/100 leukocytes in Blood by Automated count 1.9 % 0.0 - 7.0 [facility] Basophils/100 leukocytes in Blood by Automated count 0.5 % 0.0 - 2.5 [facility] %IG 0.2 % 0.0 - 0.0 [facility] %NRBC 0.0 % 0.0 - 0.0 [facility] al Neutrophils [#/volume] in Blood by Automated count 8.45 10^3/uL 2.00 - 6.[address] [facility] Lymphocytes [#/volume] in Blood by Automated count 2.87 10^3/uL 0.60 - 3.40 [facility] Monocytes [#/volume] in Blood by Automated count 0.96 10^3/uL 0.00 - 0.[address] [facility] Eosinophils [#/volume] in Blood by Automated count 0.24 10^3/uL 0.00 - 0.70 [facility] Basophils [#/volume] in Blood by Automated count 0.06 10^3/uL 0.00 - 0.20 [facility] #IG 0.03 10^3/uL 0.00 - 0.10 [facility] ospital #NRBC 0.00 10^3/uL 0.00 - 0.00 [facility] ospital MANUAL DIFF NOT INDICATED [facility] RBC MORPH NOT INDICATED [facility] spital ID Date Data Source [id number] 02/09/2020 11:06:[address] [facility] [address] [facility] Emergency Department [address] [place] [address] Phone #: ext- [phone] 02/09/2020 23:06 Patient: SCARLET SOLOMON Sex: F : 2000 Age: 20yWEIGHT:81.6 kg (S) HEIGHT:66 inches (S) BMI:29.0ALLERGIES: No Known Drug AllergyCHIEF COMPLAINT: abdominal pain, flank painDIAGNOSIS: Ureteric stone, Urinary tract infectious diseaseLAB ORDERSOrder Description Priority Entered Acknowledged I nitialedBeta-HCG, Qual STAT 23:32 02/09/2020 23:34 Dafne Yu RN Physician;CBC w Diff STAT 23:32 02/09/2020 23:34 Heath Yu RN Physician;CMP STAT 23:32 02/09/2020 23:34 Heath Yu RN Physician;Lactic Acid STAT 23:32 02/09/2020 23:34 Heath Yu RN Physician;Lipase STAT 23:32 02/09/2020 23:34 Heath Yu RN Physician;Urinalysis (Clean STAT 23:32 02/09/2020 23:34 ChuckyenCatch) Torrey Yu RN Physician;Blood Culture STAT 23:36 02/09/2020 23:44 Nddvujl26i X2 (Sched Torrey Yu RN23:36 02/09/2020) Physicia n;Blood Culture STAT 23:36 02/09/2020 00:23 02/10/2020q10m X2 (Sched Torrey Yu RN23:46 02/09/2020) Physician;DIAGNOSTIC STUDY ORDERSOrder Description Priority Entered Acknowledged InitialedCT ABD PEL W/O STAT 00:28 02/10/2020 00:33 StevenOral W/O IV Torrey Yu RNContrast Physician;(Oxygen?(No)) [address] [facility] Emergency Department [address] [place] [address] Phone #: ext- [phone] 02/09/2020 23:06 Patient: SCARLET SOLOMON Sex: F : 2000 Age: 20y(IV?(Yes)) NOTES: right upper quad and right flank Reason for Study: Abdominal PainMEDICATION/IV/DRIP/FLUID ORDERSOrder Description Priority Entered Acknowledged InitialedNS IV : 250 mL/hr 23:32 02/09/2020 23:50 Heath(NOW) Torrey Yu RN Physician;Dilaudid IVP 1 mg 23:32 02/09/2020 23:50 Heath(HIGH ALERT Torrey Yu RNMEDICATION) Physician;Zofran IVP 4 mg 23:33 02/09/2020 23:51 Heath Yu RN Physician;Cipro PO 500 mg 01:36 02/10/2020 Ack'd: 01:41 Marti 01:48 Marti Yu R.N. Physician;[place] (5-325mg) 01:36 02/10/2020 Ack'd: 01:41 Marti 01:48 Marti Santa 1 tab (HIGH Torrey Yu R.NElder Yu RFrankoALERT Physician;MEDICATION)GENERAL ORDERSOrder Description Priority Entered Acknowledged Initialed[Electronically signed by Torrey Arevalo Physician (01:45 02/10/2020)][Electronically signed by Marti Porter R.N. (07:19 02/10/2020)][Electronically locked by Marti Porter R.N. (07:19 02/10/2020)] Name Value Range Interpretation Code Description Data Shira rce(s) Supporting Document(s) ID Date Data Source [id number] 02/09/2020 11:06:[address] [facility] [address] [facility] Emergency Department [address] [place] [address] Phone #: [phone] 02/09/2020 23:06 Patient: SCARLET SOLOMON Sex: F : 2000 Age: 20yWeight: 81.6 kgHeight/Length: 66 in.BMI: 29.0ALLERGIES: No Known Drug AllergyThe patient's Home Medications are listed below:NONE.The source(s) of the original Home Medication information:patientThe following Medications were given to the patient in the Emergency Department:NS [IV] IV Fluids bolus 0, then 250 mL/hr, administered: 02/09/2020 11:50:00 PMDilaudid [IVP] IVP 1 mg, administered: 02/09/2020 11:50:00 PMZofran [IVP] IVP 4 mg, administered: 02/09/2020 11:50:00 PMCipro [PO] PO 500 mg, administered: 02/10/2020 1:43:00 AMNORCO (5-325MG) [PO] PO 1 tab, administered: 02/10/2020 1:43:00 AMThe following Medications were prescribed to the patient:hydrocodone 5 mg-acetaminophen 325 mg tablet 1 tablet every four hours as needed for pain for 3 days-- Dispense 18 tablet. Refills: 0. Substitution permitted.[facility] - [facility] [address] ; [place] [address]. .Cipro 500 mg tablet Take 1 tablet twice a day for 7 days -- Dispense 14 tablet. Refills: 0. Substitutionpermitted.[facility] [address] ; [place] [address]. . -- Torrey Arevalo, Physician Name Value Range Interpretation Code Description Data Shira rce(s) Supporting Document(s) ID Date Data Source [id number] 02/09/2020 11:06:[address] [facility] [address] [facility] Emergency Department [address] [place] [address] Phone #: ext- [phone] 02/09/2020 23:06 Patient: SCARLET SOLOMON Sex: F : 2000 Age: 20yWeight: 81.6 kgHeight/Length: 66 inBMI: 29ALLERGIES: No Known Drug Allergy Date/Time Medication Administered Medication OrderedStart NS [IV] NS IV : 250 mL/hr (NOW)23:50 02/09/2020 Dose: IV FluidsStparamjit Yu RN Rate: 250 mL/hr---- Dispensed: 1000 mL bagStop Site: #1 right AC01:48 02/10/2020Marti Yu R.N.Given DILAUDID [IVP] (HYDROMORPHONE Dilaudid IVP 1 mg (HIGH ALERT23:50 02/09/2020 HCL) MEDICATION)Heath Yu RN Dose: 1 mg IVP Site: #1 right ACGiven ZOFRAN [IVP] (ONDANSETRON HCL) Zofran IVP 4 mg23:50 0 02/09/2020 Dose: 4 mg IVPSteritu Yu RN Site: #1 right ACGiven CIPRO [PO] (CIPROFLOXACIN) Cipro PO 500 mg01:43 02/10/2020 Dose: 500 mg Tablets Venkatesh Yu R.N.Given NORCO (5-325MG) [PO] [place] (5-325mg) PO 1 tab (HIGH01:43 02/10/2020 (ACETAMINOPHEN- HYDROCODONE) ALERT MEDICATION)Marti Jay Islesford, R.N. Dose: 1 tab 5/325 mg Tablets PO Name Value Range Interpretation Code Description Data Shira rce(s) Supporting Document(s) ID Date Data Source [id number] 02/09/2020 11:06:[address] [facility] [address] [facility] Emergency Department [address] [place] [address] Phone #: ext- [phone] 02/09/2020 23:06 Patient: SCARLET SOLOMON Sex: F : 2000 Age: 20yUreterolithiasis (single stone) on the right.Acute urinary tract infection with cystitis. No hematuria.INSTRUCTIONSDrink plenty of fluids. No alcohol.(Strain urine. Use back up form of control for this and next cycle).Warnings: Further evaluation is necessary (Urology consultation.). It is very important to follow up with [facility] provider.SEDATIVE MEDICATION: You were given sedative medication during your visit. Do not drive or operatedangerous machinery.CONTROLLED SUBSTANCE WARNINGS.GENERAL WARNINGS: Return or contact your physician immediately if your condition worsens orchanges unexpectedly, if not improving as expected, or if other problems arise.Your Current Medications: .No home medication.Prescription Medications:hydrocodone 5 mg-acetaminophen 325 mg tablet 1 tablet every four hours as needed for pain for 3 days-- Dispense 18 tablet. Refills: 0. Substitution permitted.Pharmacy - [facility] [address] ; [place] [address]. .Cipro 500 mg tablet Take 1 tablet twice a day for 7 days -- Dispense 14 tablet. Refills: 0. Substitutionpermitted.[facility] [address] ; [place] [address]. .Und erstanding of the discharge instructions verbalized by patient.Follow-up with: [facility] Respective Team [place], , , [address] [address], , [place], [address] Follow up Tuesday in two days. Call for an appointment. Reason for referral: evaluation and treatment.Summary of care provided to patient and family via paper. [address] [facility] Emergency Department [address] [place] [address] Phone #: ext- [phone] 02/09/2020 23:06 Patient: SCARLET SOLOMON Sex: F : 2000 Age: 20y ADDITIONAL INFORMATIONBladder Infection, Female (Adult)Urine is normally doesn't have any bacteria in it. But bacteria can get into the urinary tract from theskin around the rectum. Or they can travel in the blood from elsewhere in the body. Once they are inyour urinary tract, they can cause infection in the urethra (urethritis), the bladder (cystitis), or thekidneys (pyelonephritis).The most common place for an infection is in the bladder. This is called a bladder infection. This isone of the most common infections in women. Most bladder infections are easily treated. They arenot serious unless the infection spreads to the kidney.The phrases "bladder infection," "UTI," and "cystitis" are often used to describe the same thing. Butthey are not always the same. Cystitis is an inflammation of the bladder. The most common cause ofcystitis is an infection.SymptomsThe infection causes inflammation in the urethra and bladder. This causes many of the symptoms.The most common symptoms of a bladder infection are: Pain or burning when urinating Having to urinate more often than usual Urgent need to urinate [address] [facility] Emergency Department [address] [place] [address] Phone #: [phone]- [phone] 02/09/2020 23:06 Patient: SCARLET SOLOMON Sex: F : 2000 Age: 20y Only a small amount of urine comes out Blood in urine Abdominal discomfort. This is usually in the lower abdomen above the pubic bone. Cloudy urine Strong- or bad-smelling urine Unable to urinate (urinary retention) Unable to hold urine in (urinary incontinence) Fever Loss of appetite Confusion (in older adults)CausesBladder infections are not contagious. You can't get one from someone else, from a toilet seat, orfrom sharing a bath.The most common cause of bladder infections is bacteria from the bowels. The bacteria get onto theskin around the opening of the urethra. From there, they can get into the urine and travel up to thebladder, causing inflammation and infection. This usually happens because of: Wiping improperly after urinating. Always wipe from front to back. Bowel incontinence Procedures such as having a catheter inserted Older age Not emptying your bladder. This can allow bacteria a chance to grow in your urine. Dehydration Constipation Sex Use of a diaphragm for controlTreatment [address] [facility] Emergency Department [address] [place] [address] Phone #: ext- [phone] 02/09/2020 23:06 Patient: SCARLET SOLOMON Sex: F : 2000 Age: 20yBladder infections are diagnosed by a urine test. They are treated with antibiotics and usually clear upquickly without complications. Treatment helps prevent a more serious kidney infection.MedicinesMedicines can help in the treatment of a bladder infection: Take antibiotics until they are used up, even if you feel better. It is important to finish them to make sure the infection has cleared. You can use acetaminophen or ibuprofen for pain, fever, or discomfort, unless another medicine was prescribed. If you have chronic liver or kidney disease, talk with your healthcare provider before using these medicines. Also talk with your provider if you've ever had a stomach ulcer or gastrointestinal bleeding, or are taking blood-thinner medicines. If you are given phenazopydridine to reduce burning with urination, it will cause your urine to become a bright orange color. This can stain clothing.Care and preventionThese self-care steps can help prevent future infections: Drink plenty of fluids to prevent dehydration and flush out your bladder. Do this unless you must restrict fluids for other health reasons, or your doctor told you not to. Proper cleaning after going to the bathroom is important. Wipe from front to back after using the toilet to prevent the spread of bacteria. Urinate more often. Don't try to hold urine in for a long time. Wear loose-fitting clothes and cotton underwear. Avoid tight-fitting pants. Improve your diet and prevent constipation. Eat more fresh fruit and vegetables, and fiber, and less junk and fatty foods. Avoid sex until your symptoms are gone. Avoid caffeine, alcohol, and spicy foods. These can irritate your bladder. Urinate right after intercourse to flush out your bladder. If you use control pills and have frequent bladder infections, discuss it with your doctor.Follow-up careCall your healthcare provider if all symptoms are not gone after 3 days of treatment. This is especiallyimportant if you have repeat infections. [address] [facility] Emergency Department [address] [place] [address] Phone #: ext- [phone] 02/09/2020 23:06 Patient: SCARLET SOLOMON Sex: F : 2000 Age: 20yIf a culture was done, you will be told if your treatment needs to be changed. If directed, you cancall to find out the results.If X-rays were done, you will be told if the results will affect your treatment.Call [phone] if any of the following occur: Trouble breathing Hard to wake up or confusion Fainting or loss of consciousness Rapid heart rateWhen to seek medical adviceCall your healthcare provider right away if any of these occur: Fever of 100.4F (38.0C) or higher, or as directed by your healthcare provider Symptoms are not better by the third day of treatment Back or belly (abdominal) pain that gets worse Repeated vomiting, or unable to keep medicine down Weakness or dizziness Vaginal discharge Pain, redness, or swelling in the outer vaginal area (labia) 9601-1541 [employer]. [address] [place] [address]. All rights reserved. This information is not intended as asubstitute for professional medical care. Always follow your healthcare professional's instructions. You have been given the following additional information: Bladder Infection, Female (Adult)(Electronically signed by Torrey Arevalo, Physician 02/10/2020 01:45) [address] [facility] Emergency Department [address] [place] [address] Phone #: ext- [phone] 02/09/2020 23:06 Patient: SCARLET SOLOMON Sex: F : 2000 Age: 20y Name Value Range Interpretation Code Description Data Shira rce(s) Supporting Document(s) ID Date Data Source [id number] 02/09/2020 11:06:[address] [facility] 1 Clinical Report - Nurses [facility] Emergency Department [address] [place] [address] Phone #: ext- [phone] 02/09/2020 23:06 Patient: SCARLET SOLOMON Sex: F : 2000 Age: 20yTRIAGEArrived by private vehicle. Historian: patient. Accompanied by friend.Triage time: 23:10 02/09/2020. Acuity: LEVEL 3.Chief Complaint: ABDOMINAL PAIN.Onset was gradual. Symptoms are constant and still present (3 days ago). She has had mild nausea andabdominal pain. The pain is described as located in the RLQ. ( urinating difficulties, small amounts).Treatment COMPUTER SYSTEMS SECURITY ADMINISTRATOR:None.SEPSIS SCREEN: Sepsis Screen negative. No suspected or confirmed signs of infection present. --23:156 Heath Yu RN23:10 02/09/20. BP: 138/84 (regular adult cuff) taken on the right arm, via an automated monitor, whilelying. MAP: 102. HR: 101 (regular, normal rate and strong). RR: 16 (regular, unlabored and normal). [id number]: 100% on room air. Temp: 97.6 F (oral). Pain level now: 02/21. --23:15 02/09/20 Heath Yu RN.Weight: 81.6 kg stated. Height/Length: 66 inches Per Patient. BMI: 29 . --23:14 02/09/20 Heath Yu RN.MedicationsNone. --23:33 02/09/20 Heath Yu RNThe following entry was struck by Heath Yu RN, 23:33 (02/09/20) Reason - other. Control Pills. --23:11 02/09/20 Heath Yu RN .AllergiesNo Known Drug Allergy. --23:11 02/09/20 Heath Yu RN.PROBLEMS:Abdominal Pain.Renal Colic.Pyelonephritis. --23:12 02/09/20 Heath Yu RN.Medication/allergy information source: the patient. --23:15 02/09/20 Heath Yu RN.HistoryPAST MEDICAL HX: Immunizations: up-to-date. Last normal menstrual period- January 2020. Uses 2 Clinical Report - Nurses [facility] Emergency Department [address] [place] [address] Phone #: ext- [phone] 02/09/2020 23:06 Patient: SCARLET SOLOMON Sex: F : 2000 Age: 20y control pills. SURGERY HX: Cholecystectomy. SOCIAL HX: Never smoker. No alcohol use or drug use. No recent travel. No known contact with a sick individual. She was offered HIV testing but declined and hepatitis C testing but declined. She has not traveled outside the [place] Infectious disease exposure: No infectious disease exposure. SELF HARM ASSESSMENT: Self harm assessment was performed. The patient answered "no" to the question(s) "Have you recently felt down, depressed, or hopeless?", "Do you have thoughts of harming or killing yourself?", "Do you have a plan for harming or killing yourself?", "Have you recently had thoughts about harming or killing others?", "Do you have any dangerous items in your possession?", "Have you noticed less interest or pleasure in doing things?", "Are you here because you tried to hurt yourself?" and "Have you ever tried to hurt yourself before today?". ABUSE ASSESSMENT: No report of abuse. FALL RISK ASSESSMENT: Fall risk assessment completed. No risk factors identified. --23:15 02/09/20 Heath Yu RN PAST MEDICAL HX: Uses depo implants. --23:33 02/09/20 Heath Yu RN. FAMILY HX: Negative - denies family medical history. --23:28 02/09/20 Torrey Arevalo, Physician. Assessment The patient states feels the same. --23:15 02/09/20 Heath Yu RN.PHYSICAL ASSESSMENTAmbulatory to room.GENERAL / NEURO / PSYCH: Alert. Oriented X 4. Appears in no acute distress.HEENT: Mucous membranes are pink.RESPIRATORY: Respirations not labored. Breath sounds within normal limits.CVS: Capillary refill less than 2 seconds.GI / : The patient has had intermittent episodes of nausea. Abdominal tenderness in the periumbilicalarea and right lower quadrant. Bowel sounds within normal limits.SKIN: Skin is warm and dry. --23:16 02/09/20 Heath Yu RN.NURSING PROGRESS NOTESPatient gowned. Reassurance given to the patient. Call light placed in reach of patient. Bed placed inlowest position. Brakes of bed on. Patient ready for evaluation- ED physician notified. --23:16 02/09/20kelly Yu RN 23:35 02/09/2020 Site #1 started via IV in the right antecubital space with an 20g angiocath, with aseptic technique and good blood return; one attempt. Blood drawn: rainbow set and cultures x1. Saline lock 3 Clinical Report - Nurses [facility] Emergency Department [address] [place] [address] Phone #: ogh- [phone] 02/09/2020 23:06 Patient: SCARLET SOLOMON Sex: F : 2000 Age: 20yflushed with 10 mL saline. --23:50 02/09/20 Heath Yu RN23:50 02/08 Started bag #1 1000 mL IV Fluids NS; at 250 mL/hr via site #1 via IV pump. Allergiesverified and confirmed 5 rights. IV patency established. IV site checked: no pain, redness, or swelling. IVflushed thoroughly pre- and post- medication administration. Information reviewed with patient includingreason for taking this medication, signs of allergic reaction and precautions. Verbalizes understanding.--23:50 02/09/20 Heath Yu RN23:50 02/09/2020 Dilaudid (HYDROmorphone HCl) IVP 1 mg given over 1 minute(s) via site #1. Allergiesverified and confirmed 5 rights. IV patency established. IV site ashwin cked: no pain, redness, or swelling. IVflushed thoroughly pre- and post- medication administration. IVP given by RN. Information reviewed withpatient including reason for taking this medication, signs of allergic reaction, precautions and sedativewarning. Verbalizes understanding. --23:50 02/09/20 Heath Yu RN23:50 02/09/2020 Zofran (Ondansetron HCl) IVP 4 mg given over 2 minute(s) via site #1. Allergies verifiedand confirmed 5 rights. IV patency established. IV site checked: no pain, redness, or swelling. IV flushedthoroughly pre- and post-medication administration. IVP given by RN. Information reviewed with patientincluding reason for taking this medication, signs of allergic reaction and precautions. Verbalizesunderstanding. --23:51 02/09/20 ARIANNA Mooreatient transported to sonogram by wheelchair with dietetic technician. --00:18 02/10/20 Heath Yu RNCharted On Wrong Patient --00:34 02/10/20 ARIANNA Mooreatidonny transported to CT by wheelchair with dietetic technician. --00:34 02/10/20 ARIANNA Mooreatidonny returned from CT by wheelchair with dietetic technician. --00:43 02/10/20 Heath Yu RN( Lactic Acid result 0.9 reported to ED from LAB which was a send out to [facility]. notified.). --01: Marti Yu R.N.01:43 02/10/2020 Cipro (Ciprofloxacin) PO Tablets 500 mg given. Allergies verified and confirmed 5 rights.Information reviewed with patient including reason for taking this medication. Verbalizes understanding.--01:48 02/10/20 Bryce Wood.N.01:43 02/10/2020 NORCO (5- 325MG) (Acetaminophen-HYDROcodone) PO 5/325 mg Tablets 1 tab given.Allergies goldie ified and confirmed 5 rights. Information reviewed with patient including reason for taking thismedication and sedative warning. Verbalizes understanding. --01:48 02/10/20 Kumar WoodN.01:48 02/10/2020 IV Fluids NS via IV site #1 Discontinued: discontinued upon discharge. Total amountinfused: 500 mL. IV patency established. IV site checked: no pain, redness, or swelling. IV flushedthoroughly. --01:49 02/10/20 Marti Yu R.N.01:49 02/10/2020 Site #1 removed upon discharge. Bandage applied. --01:49 02/10/20 Marti Yu R.N. 4 Clinical Report - Nurses [facility] Emergency Department [address] [place] [address] Phone #: ext- [phone] 02/09/2020 23:06 Patient: SCARLET SOLOMON Sex: F : 2000 Age: 20yDISPOSITION / DISCHARGE Condition at departure: improved and stable. No learning barriers present. Reviewed medication(s). Prescription(s) sent electronically to pharmacy. Patient verbalized understanding. Written instructions provided in [place]. The patient was discharged by the physician. She was discharged home and accompanied by casing crew pusher. She left ambulatory and via private vehicle. Marketing Campaign Analyst driving. --01:50 02/10/20 Marti Yu R.N. 01:49 02/10/20. BP: 138/72. MAP: 94. HR: 81. RR: 16. O2 saturation: 99%. Temp: 98.7 F. Pain level now: 10/22. --01:50 02/10/20 Marti Yu R.N. Departure time: 01:57 02/10/2020. --01:57 02/10/20 Marti Yu R.N.Locked/Released at 02/10/2020 07:19 by Marti Yu R.N. Name Value Range Interpretation Code Description Data Shira rce(s) Supporting Document(s) ID Date Data Source [id number] 02/09/2020 11:06:[address] [facility] 1 Clinical Report - Physicians/Mid Levels [facility] Emergency Department [address] [place] [address] Phone #: ext- [phone] 02/09/2020 23:06 Patient: SCARLET SOLOMON Sex: F : 2000 Age: 20y Time Seen: 23:15 02/09/2020. Arrived- By private vehicle. Historian- patient.HISTORY OF PRESENT ILLNESS Chief Complaint: ABDOMINAL PAIN and FLANK PAIN. This started 2 days ago. It is described as "pain" and sharp. No radiation. It is described as located in the right flank and the right upper quadrant and right abdomen. At its maximum, severity described as 7 / 10. When seen in the E.D., severity described as 7 / 10. The patient has had nausea. No loss of appetite, vomiting or diarrhea. No additional abdominal pain. No recent travel. Similar symptoms previously. Patient has had similar symptoms once. ( Had infected gall bladder). Recent medical care: Not recently seen/assessed.REVIEW OF SYSTEMSLast normal menstrual period- 2 months ago. No constipation, black stools, hematemesis, difficulty withurination or pain with urination. No urinary frequency, abnormal bleeding, bloody stools, fever orheadache. No sore throat, blurred vision, chest pain, difficulty breathing or cough. No joint pain, skinrash, chills or back pain. Denies current . The patient has had irregular periods but not hadweight loss.PAST HISTORYSee nurses notes. Problems: Abdominal Pain. Renal Colic. Pyelonephritis. Kidney Infection [Resolved]. Additional Surgeries: Cholecystectomy. Medications: Control Pills. Allergies: No Known Drug Allergy.SOCIAL HISTORY 2 Clinical Report - Physicians/Mid Levels [facility] Emergency Department [address] [place] [address] Phone #: ext- [phone] 02/09/2020 23:06 Patient: SCARLET SOLOMON Sex: F : 2000 Age: 20y Never smoker. No alcohol use or drug use. No recent travel.FAMILY HISTORYNegative - denies family medical history.ADDITIONAL NOTESThe nursing notes have been reviewed with agreement regarding the chief complaint, HPI, ROS, PMH andpatient medications and allergies.PHYSICAL EXAMVital Signs: 02/09/2020 23:10 BP: lying 138/84. MAP: 102. HR: 101. RR: 16. O2 saturation: 100% onroom air. Temp: 97.6 F. Pain level now: 710. Have been reviewed as abnormal. Blood pressure normal.Tachycardic. Respiratory rate normal. Temperature normal. Oxygen saturation normal.Appearance: Alert. Oriented X3. Patient in moderate distress.Eyes: Pupils equal, round and reactive to light. Eyes normal inspection.ENT: Nose normal. Pharynx normal.Neck: Normal inspection. Neck supple.CVS: Tachycardia. Normal heart rate and rhythm. Heart sounds normal. Pulses normal.Respiratory: No respiratory distress. Painless inspiration. Breath sounds normal. Chest nontender.Abdomen: Soft. Moderate tenderness in the right upper quadrant and right side of the abdomen.Guarding present. Bowel sounds normal. No organomegaly. No mass. Femoral pulses equal.Back: Moderate CVA tenderness on the right.Skin: Skin warm and dry. Normal skin color. No rash. Normal skin turgor.Extremities: Extremities exhibit normal ROM. No lower extremity edema.Neuro: Oriented X 3. No motor deficit. No sensory deficit.LABS, X-RAYS, AND EKGLaboratory Tests: Laboratory tests have been ordered, with results reviewed and considered in themedical decision making process. CT ABD PEL W/O Oral W/O IV Contrast: (STELLA: 02/10/2020 00:29) ( MsgRcvd 02/10/2020 01:25) Final results Exam CT ABD //T// PELV W/O ORAL W/O IV [address] [address] ---------NAME--------- NUMBER SEX AGE ADMIT DISC. XRAY# F/C TYPE JUANITO Waddell [id number] F 20 02/09/20 [id number] E/R DATE OF : 2000 M/R# [id number] #: [id number] TR-05 LOCATION: TRANSCRIBED: 02/10/20 1:[address] ABD //T// PELV W/O ORAL W/[place] [id number] COMPLETED:02/10/20 44 KJE 36884 Reason(s): Abdominal Pain PHYSICIAN: LUISANA SOLO R A D I O L O G Y R E P O R T 3 Clinical Report - Physicians/[facility] Emergency Department [address] [place] [address] Phone #: ext- [phone] 02/09/2020 23:06 Patient: SCARLET SOLOMON Sex: F : 2000 Age: 20yPATIENT HISTORY:Abdominal Pain ACC DLP- 917.5mGy*cmPT NEG BETA. VERIFIED 2 [facility]ERS. [facility] / [facility]/PEL (DICOM Hx)EXAM: CT Abdomen and Pelvis Without IV contrastCLINICAL HISTORY: Abdominal Pain ACC DLP- 917.5mGy*cmTECHNIQUE: Axial computed tomography images of the abdomen and pelvis withoutintravenous contrast.CONTRAST: No IV contrast.COMPARISON: CTFINDINGS:LUNG BASES: The lung bases appear clear. No pleural effusions are seen.LIVER: Unremarkable.GALLBLADDER AND BILE DUCTS: The patient is status post cholecystectomy.PANCREAS: Unremarkable.SPLEEN: Unremarkable.ADRENAL GLANDS: Unremarkable.KIDNEYS, URETERS, AND BLADDER: There is mild right hydronephrosis andhydroureter of uncertain etiology. No urinary calculi are evident. Differentialconsiderations for the urinary tract dilation would include a recently passedurinary calculus, urinary tract infection or hemorrhage, a distal ureteralstricture or mass, reflux, and other etiologies. Urinalysis correlationrecommended. Further imaging evaluation could be obtained with a contrastedstudy with both portal venous phase as well as delayed images of the kidneys andureters, if indicated.STOMACH AND BOWEL: Unremarkable appearance of the stomach and bowel. No evidenceof bowel obstruction. No evidence suggesting enteritis or colitis.APPENDIX: No evidence of acute appendicitis on CT examination.PERITONEUM: No free fluid. No free air.LYMPH NODES: No lymphadenopathy is evident.REPRODUCTIVE: Unremarkable as visualized.VASCULATURE: No evidence of abdominal aortic aneurysm.BONES: No aggressive appearing osseous lesion. No acute osseous pathologyevident.IMPRESSIONS:1. There is mild right hydronephrosis and hydroureter of uncertain etiology. Nourinary calculi are evident. Differential considerations for the urinary tractdilation would include a recently passed urinary calculus, urinary tractinfection or hemorrhage, a distal ureteral stricture or mass, reflux, and otheretiologies. Urinalysis correlation recommended. Further imaging evaluation couldbe obtained with a contrasted study with both portal venous phase as well as 4 Clinical Report - Physicians/Mid Levels [facility] Emergency Department [address] [place] [address] Phone #: ext- [phone] 02/09/2020 23:06 Patient: SCARLET SOLOMON Sex: F : 2000 Age: 20y delayed images of the kidneys and ureters, if indicated. 2. The patient is status post cholecystectomy. While performing the above CT examination, radiation dose reduction was accomplished utilizing automated exposure control, adjusting of the mA and kV based on the patient's body size and/or the use of imperative reconstructive techniques. Electronically Signed By: Armando Aviles MD , Radiologist Date/Time: 02/10/20 01:25Beta-HCG, Qual Urine: (STELLA: 02/09/2020 23:20) ( MsgRcvd 02/09/2020 23:46) Final results Test Result Flag Units (Reference) HCG URINE QUAL NEG ATIVE (NORMAL: NEGAT HCG URINE QL REENTER NEGATIVE (NORMAL: NEGAT { KIT LOT # [id number] ){ KIT EXP [id number] ){ PROCEDURAL CONTROL VALID)CBC w Diff: (STELLA: 02/09/2020 23:30) ( MsgRcvd 02/10/2020 00:32) Final results Test Result Flag Units (Reference) CBC W/AUTOMATED DIFF COMPLETE BLOOD COUNT WBC 12.6 H 10/uL (4.2 - 11.0) RBC 4.66 10/uL (4.20 - 5.40) HEMOGLOBIN 14.1 g/dL (12.0 - 16.0) HEMATOCRIT 42.2 % (37.0 - 47.0) MCV 90.6 fL (81.0 - 101) MCH 30.3 pg (27.0 - 34.0) MCHC 33.4 g/dL (31.0 - 36.0) RDW 11.7 % (11.5 - 14.5) PLATELETS 353 10/uL (150 - 450) MPV 8.7 fL (7.4 - 10.4) NEUT 64.2 % (37.0 - 80.0) LYMPH 23.0 L % (25.0 - 40.0) MONO 10.4 H % (3.0 - 8.0) EOS 1.7 % (0.0 - 7.0) BASO 0.4 % (0.0 - 2.5) %IG 0.3 H % (0.0 - 0.0) %NRBC 0.0 % (0.0 - 0.0) #NEUT 8.10 H 10/uL (2.00 - 6.90) #LYMPH 2.90 10/uL (0.60 - 3.40) #MONO 1.31 H 10/uL (0.00 - 0.90) #EOS 0.21 10/uL (0.00 - 0.70) #BASO 0.05 10/uL (0.00 - 0.20) #IG 0.04 10/uL (0.00 - 0.10) #NRBC 0.00 10/uL (0.00 - 0.00) MANUAL DIFF SEE BELOW SEGS 64 % (37 - 80) BAND 1 % (0 - 5) %LYMPH 29 % (25 - 40) %MONO 6 % (3 - 8) RBC MORPH MORPH IS NORMALCMP: (STELLA: 02/09/2020 23:30) ( MsgRcvd 02/10/2020 00:19) Final results 5 Clinical Report - Physicians/Mid Levels [facility] Emergency Department [address] [place] [address] Phone #: ext- [phone] 02/09/2020 23:06 Patient: SCARLET SOLOMON Sex: F : 2000 Age: 20y Test Result Flag Units (Reference) COMPREHENSIVE METABOLIC PANEL COMPREHENSIVE METABOLIC PANEL SODIUM 138 mEq/L (134 - 153) POTASSIUM 3.9 mEq/L (3.6 - 5.0) CHLORIDE 103 mEq/L (98 - 107) CO2 26 MEQ/L (22 - 30) GLUCOSE 105 MG/DL (65 - 110) BUN 13 MG/DL (7 - 21) CREATININE 0.7 MG/DL (0.7 - 1.5) BUN/CREAT 19 (8 - 27) TOTAL PROTEIN 7.7 G/DL (6.3 - 8.2) ALBUMIN 4.4 G/DL (3.9 - 5.0) GLOBULIN 3.3 H GM/DL (2.4 - 3.2) A/G RATIO 1.3 (0.8 - 2.0) CALCIUM 9.2 MG/DL (8.4 - 10.2) TOTAL BILI <0.7 MG/DL (0.2 - 1.3) ALKALINE PHOS 107 U/L (38 - 126) SGOT/AST 30 U/L (5 - 40) SGPT/ALT 31 U/L (7 - 56) ANION GAP 9.0 mmol/L (8.0 - 16.0) AGE 20 yrs NON-AA GFR >60 mL/min AFR AMER GFR >60 mL/min Male GFR Interprentation 20-49 yrs >60 mL/min Maxwjp36-13 yrs >56 mL/min Normal 60-69 yrs >49 mL/min Normal 70-79yrs>42 mL/min Normal 80 and above >35 mL/min Normal Female GFRInterpretation 20-39 yrs >60 mL/min Normal 40-49 yrs >58 mL/minNormal 50-59 yrs >51 mL/min Normal 60-69 yrs >45 mL/min Fbxxtu13-83 yrs >39 mL/min Normal 80 and above >32 mL/min NormalLipase: (STELLA: 02/09/2020 23:30) ( [facility] 02/10/2020 00:19) Final results Test Result Flag Units (Reference) LIPASE 49 U/L (13 - 60)Urinalysis: (STELLA: 02/09/2020 23:20) ( [facility] 02/09/2020 23:49) Final results Test Result Flag Units (Reference) URINALYSIS URINALYSIS SOURCE R COLOR yellow (NORMAL: Yello CLARITY turbid (NORMAL: Clear SPEC GRAVITY 1.010 (1.001 - 1.030 pH 7 (5 - 9) GLUCOSE NORM (NORMAL: Negat BILIRUBIN NEG (NORMAL: Negat KETONE NEG (NORMAL: Negat PROTEIN 30 (NORMAL: Negat NITRITE POS (NORMAL: Negat BLOOD 50 A (NORMAL: Negat LEUK EST 500 A (NORMAL: Negat UROBILINOGEN NOR (less than 1.0 MICROSCOPIC See Below WBC 10 - 15 A (NORMAL: NONE RBC 7 - 10 A (NORMAL: NONE EPITHELIAL MODERATE A (NORMAL: NONE 6 Clinical Report - Physicians/Mid Levels [facility] Emergency Department [address] [place] [address] Phone #: ext- [phone] 02/09/2020 23:06 Patient: SCARLET SOLOMON Sex: F : [birth year] Age: 20y BACTERIA 1+ SMALL (NORMAL: NONE.PROGRESS AND PROCEDURESCourse of Care: 23:33 Feb 09 2020. (Patient's history obtained and exam completed. Treatment plandiscussed and agreed upon. Labs ordered. IV fluids started and Dilaudid and Zofran given IV.). 01:34 Feb 10 2020. (Pain down to 5. Advised of follow up to return if worsen and to return if worsen. Cipro 500 mg PO and Hydrocodone 5/500 given.).CLINICAL IMPRESSION Ureterolithiasis (single stone) on the right. Acute urinary tract infection with cystitis. No hematuria.INSTRUCTIONS Drink plenty of fluids. No alcohol. (Strain urine. Use back up form of control for this and next cycle). Warnings: Further evaluation is necessary (Urology consultation.). It is very important to follow up with a healthcare provider. SEDATIVE MEDICATION: You were given sedative medication during your visit. Do not drive or operate dangerous machinery. CONTROLLED SUBSTANCE WARNINGS. GENERAL WARNINGS: Return or contact your physician immediately if your condition worsens or changes unexpectedly, if not improving as expected, or if other problems arise. Your Current Medications: . No home medication. Prescription Medications: hydrocodone 5 mg-acetaminophen 325 mg tablet 1 tablet every four hours as needed for pain for 3 days -- Dispense 18 tablet. Refills: 0. Substitution permitted. Pharmacy - [facility] [id number] ; [place] [address]. . Cipro 500 mg tablet Take 1 tablet twice a day for 7 days -- Dispense 14 tablet. Refills: 0. Substitution permitted. Pharmacy - [facility] [id number] ; [place], [place] [address]. . 7 Clinical Report - Physicians/Mid Levels [facility] Emergency Department [address] [place] [address] Phone #: [phone] 02/09/2020 23:06 Patient: SCARLET SOLOMON Sex: F : 2000 Age: 20y Understanding of the discharge instructions verbalized by patient. Follow-[facility] with: [facility] Respective Team Luci BAEZ, , , [address] [facility] [address], , [place], [address] Follow up Tuesday in two days. Call for an appointment. Reason for referral: evaluation and treatment. Summary of care provided to patient and family via paper.(Electronically signed by Torrey Arevalo, Physician 02/10/2020 01:45) Name Value Range Interpretation Code Description Data Shira rce(s) Supporting Document(s) ID Date Data Source [id number] 02/10/2020 01:25:00 [place] [address] ---------NAME--------- NUMBER SEX AGE ADMIT DISC. XRAY# F/C TYPE JUANITO Waddell [id number] F 20 02/09/2019690922 E/R DATE OF : 2000 M/R# [id number] #: [id number] TR-05 LOCATION: TRANSCRIBED: 02/10/20 1:[address] ABD //T// PELV W/O ORAL W/[place] [address] COMPLETED:02/10/20 [facility] [address] Reason(s): Abdominal Pain PHYSICIAN: LUISANA SOLO R A D I O L O G Y R E P O R T PATIENT HISTORY:Abdominal Pain ACC DLP- 917.5mGy*cmPT NEG BETA. VERIFIED 2 IDENTIFIERS. SENT TO [facility]. KJE / ABD/PEL (DICOM Hx)EXAM: CT Abdomen and Pelvis Without IV contrastCLINICAL HISTORY: Abdominal Pain ACC DLP- 917.5mGy*cmTECHNIQUE: Axial computed tomography images of the abdomen and pelvis withoutintravenous contrast.CONTRAST: No IV contrast.COMPARISON: CTFINDINGS:LUNG BASES: The lung bases appear clear. No pleural effusions are seen.LIVER: Unremarkable.GALLBLADDER AND BILE DUCTS: The patient is status post cholecystectomy.PANCREAS: Unremarkable.SPLEEN: Unremarkable.ADRENAL GLANDS: Unremarkable.KIDNEYS, URETERS, AND BLADDER: There is mild right hydronephrosis andhydroureter of uncertain etiology. No urinary calculi are evident. Differentialconsiderations for the urinary tract dilation would include a recently passedurinary calculus, urinary tract infection or hemorrhage, a distal ureteralstricture or mass, reflux, and other etiologies. Urinalysis correlationrecommended. Further imaging evaluation could be obtained with a contrastedstudy with both portal venous phase as well as delayed images of the kidneys andureters, if indicated.STOMACH AND BOWEL: Unremarkable appearance of the stomach and bowel. No evidenceof bowel obstruction. No evidence suggesting enteritis or colitis.APPENDIX: No evidence of acute appendicitis on CT examination.PERITONEUM: No free fluid. No free air.LYMPH NODES: No lymphadenopathy is evident.REPRODUCTIVE: Unremarkable as visualized.VASCULATURE: No evidence of abdominal aortic aneurysm.BONES: No aggressive appearing osseous lesion. No acute osseous pathologyevident.IMPRESSIONS:1. There is mild right hydronephrosis and hydroureter of uncertain etiology. Nourinary calculi are evident. Differential considerations for the urinary tractdilation would include a recently passed urinary calculus, urinary tractinfection or hemorrhage, a distal ureteral stricture or mass, reflux, and otheretiologies. Urinalysis correlation recommended. Further imaging evaluation couldbe obtained with a contrasted study with both portal venous phase as well asdelayed images of the kidneys and ureters, if indicated.2. The patient is status post cholecystectomy.While performing the above CT examination, radiation dose reduction wasaccomplished utilizing automated exposure control, adjusting of the mA and kVbased on the patient's body size and/or the use of imperative reconstructivetechniques.Electronically Signed By:Armando Aviles MD , RadiologistDate/Time: 02/10/20 01:25 Name Value Range Interpretation Code Description Data Shira rce(s) Supporting Document(s) ID Date Data Source [id number] 02/15/2020 11:58:00 AM EDT [facility] [address] Name Value Range Interpretation Code Description Data Shira rce(s) Supporting Document(s) Bacteria identified in Blood by Culture [facility] NO GROWTH AFTER 5 DAYS ID Date Data Source [id number] 02/15/2020 01:39:[address] [facility] Name Value Range Interpretation Code Description Data Shira rce(s) Supporting Document(s) CULTURE BLOOD [facility] spital _CULTURE BLOOD_{ PRELIM [place] [address] CLIA# [id number] SEE SCANNED REPORT ID Date Data Source [id number] 02/15/2020 11:58:00 AM EDT [facility] [address] Name Value Range Interpretation Code Description Data Shira rce(s) Supporting Document(s) Bacteria identified in Blood by Culture [facility] NO GROWTH AFTER 5 DAYS ID Date Data Source [id number] 02/10/2020 01:20:00 AM EDT [facility] Called/Faxed results at 0125 to Beth (Pushpa CRUZ)..TK 02/10/2020 Name Value Range Interpretation Code Description Data Shira rce(s) Supporting Document(s) Lactic w Rfx (if elevated) 0.9 mmol/L 0.5-2.2 N [facility] ID Date Data Source [id number] 02/15/2020 01:38:[address] [facility] Name Value Range Interpretation Code Description Data Shira rce(s) Supporting Document(s) CULTURE BLOOD [facility] spital _CULTURE BLOOD_{ PRELIM [place] [address] CLIA# [id number] SEE SCANNED REPORT ID Date Data Source [id number] 02/10/2020 01:57:[address] [facility] Name Value Range Interpretation Code Description Data Shira rce(s) Supporting Document(s) LACTIC ACID (LACTATE) [facility] TEST PERFORMED AT [address] [address] CLIA# [id number] SEE SCANNED REPORT ID Date Data Source [id number] 02/10/2020 12:32:[address] [facility] Name Value Range Interpretation Code Description Data Shira rce(s) Supporting Document(s) CBC W/AUTOMATED DIFF [facility] COMPLETE BLOOD COUNT Leukocytes [#/volume] in Blood by Automated count 12.6 10^3/uL 4.2 - 11.[address] [facility] Erythrocytes [#/volume] in Blood by Automated count 4.66 10^6/uL 4. 20 - 5.40 [facility] Hemoglobin [Mass/volume] in Blood 14.1 g/dL 12.0 - 16.0 [facility] Hematocrit [Volume Fraction] of Blood by Automated count 42.2 % 3 7.0 - 47.0 [facility] Erythrocyte mean corpuscular volume [Entitic volume] by Auto mated count 90.6 fL 81.0 - 101 [facility] Erythrocyte mean corpuscular hemoglobin [Entitic mass] by Automated count 30.3 pg 27.0 - 34.0 [facility] Erythrocyte mean corpuscular hemoglobin concentration [Mass/volume] by Automated count 33.4 g/dL 31.0 - 36.0 [facility] Erythrocyte distribution width [Ratio] by Automated count 11.7 % 11.5 - 14.5 [facility] Platelets [#/volume] in Blood by Automated count 353 10^3/uL 150 - [address] [facility] Platelet mean volume [Entitic volume] in Blood by Automated count 8.7 fL 7.4 - 10.4 [facility] Neutrophils/100 leukocytes in Blood by Automated count 64.2 % 37. 0 - 80.0 [facility] Lymphocytes/100 leukocytes in Blood by Manual count 23.0 % 25.0 - 40.[address] [facility] Monocytes/100 leukocytes in Blood by Automated count 10.4 % 3.0 - 8.[address] [facility] Eosinophils/100 leukocytes in Blood by Automated count 1.7 % 0.0 - 7.0 [facility] Basophils/100 leukocytes in Blood by Automated count 0.4 % 0.0 - 2.5 [facility] %IG 0.3 % 0.0 - 0.0 [facility] %[facility] 0.0 % 0.0 - 0.0 [facility] al Neutrophils [#/volume] in Blood by Automated count 8.10 10^3/uL 2.00 - 6.[address] [facility] Lymphocytes [#/volume] in Blood by Automated count 2.90 10^3/uL 0.60 - 3.40 [facility] Monocytes [#/volume] in Blood by Automated count 1.31 10^3/uL 0.00 - 0.[address] [facility] Eosinophils [#/volume] in Blood by Automated count 0.21 10^3/uL 0.00 - 0.70 [facility] Basophils [#/volume] in Blood by Automated count 0.05 10^3/uL 0.00 - 0.20 [facility] #IG 0.04 10^3/uL 0.00 - 0.10 [facility] ospital #NRBC 0.00 10^3/uL 0.00 - 0.00 [facility] ospital MANUAL DIFF SEE BELOW [facility] ital Segmented neutrophils/100 leukocytes in Blood by Manual count 64 % 37 - 80 [facility] BAND 1 % 0 - 5 [facility] %LYMPH 29 % 25 - 40 [facility] al %MONO 6 % 3 - 8 [facility] al RBC MORPH MORPH IS NORMAL [facility] ID Date Data Source [id number] 02/10/2020 12:19:[address] [facility] Name Value Range Interpretation Code Description Data Shira rce(s) Supporting Document(s) Lipase [Enzymatic activity/volume] in Serum or Plasma 49 U/L 13 - 60 [facility] ID Date Data Source [id number] 02/10/2020 12:19:[address] [facility] Name Value Range Interpretation Code Description Data Shira rce(s) Supporting Document(s) COMPREHENSIVE METABOLIC PANEL [facility] COMPREHENSIVE METABOLIC PANEL Sodium [Moles/volume] in Serum or Plasma 138 mEq/L 134 - 153 [facility] Potassium [Moles/volume] in Serum or Plasma 3.9 mEq/L 3.6 - 5.0 [facility] Chloride [Moles/volume] in Serum or Plasma 103 mEq/L 98 - 107 [facility] Carbon dioxide, total [Moles/volume] in Serum or Plasma 26 MEQ/L 22 - 30 [facility] Glucose [Mass/volume] in Serum or Plasma 105 MG/DL 65 - 110 [facility] BUN 13 MG/DL 7 - 21 [facility] al Creatinine [Mass/volume] in Serum or Plasma 0.7 MG/DL 0.7 - 1.5 [facility] BUN/CREAT 19 8 - 27 [facility] al Protein [Mass/volume] in Serum or Plasma 7.7 G/DL 6.3 - 8.2 [facility] Albumin [Mass/volume] in Serum or Plasma 4.4 G/DL 3.9 - 5.0 [facility] Globulin [Mass/volume] in Serum by calculation 3.3 GM/DL 2.4 - 3.[address] [facility] A/G RATIO 1.3 0.8 - 2.0 [facility] al Calcium [Mass/volume] in Serum or Plasma 9.2 MG/DL 8.4 - 10.2 [facility] Bilirubin.total [Mass/volume] in Serum or Plasma <0.7 MG/DL 0.2 - 1.3 [facility] Alkaline phosphatase [Enzymatic activity/volume] in Serum or Plasma 107 U/L 38 - 126 [facility] Aspartate aminotransferase [Enzymatic activity/volume] in Serum or Plasma 30 U/L 5 - 40 [facility] Alanine aminotransferase [Enzymatic activity/volume] in Seru m or Plasma 31 U/L 7 - 56 [facility] Anion gap 3 in Serum or Plasma 9.0 mmol/L 8.0 - 16.0 [facility] AGE 20 yrs [facility] al NON-AA GFR >60 mL/min [facility] ital AFR AMER GFR >60 mL/min [facility] spital Male GFR In terprentation 20-49 yrs >60 mL/min Normal 50-59 yrs >56 mL/min Normal 60-69 yrs >49 mL/min Normal 70-79yrs >42 mL/min Normal 80 and above >35 mL/min Normal Female GFR Interpretation 20-39 yrs >60 mL/min Normal 40-49 yrs >58 mL/min Normal 50-59 yrs >51 mL/min Normal 60-69 yrs >45 mL/min Normal 70-79 yrs >39 mL/min Normal 80 and above >32 mL/min Normal ID Date Data Source [id number] 02/14/2020 03:27:[address] [facility] Name Value Range Interpretation Code Description Data Shira rce(s) Supporting Document(s) CULTURE URINE [facility] spital _CULTURE URINE_$$[id number]$$[id number]$$[id number]$$[id number]$$[id number]$$376653$$500302$$010382$$047537$$ 278854$$979384$$331659$$790185$$862849$$376288$$040552$$379867$$997001$$207386$$ 224944$$441900$$406496$$507519$$224191$$166417$$288646$$864124 -- Continued on next page --Patient: JUANITO Waddell Order: [id number] Page 2Culture: CULTURE URINE Status: Final ==== -- Continued on next page --Patient: JUANITO Waddell Order: [id number] Page 2Culture: CULTURE URINE Status: Prelim =====$$[id number]$$[id number] DATE/TIME: 02/14/2020 15:06Culture: CULTURE URINE Status: FinalIsolate 1 Escherichia coli Flag: A . . . . . . .150,000-100,000 colony forming units per mLSusceptibility profile is consistent with a probable ESBL. Previous result entered on 02/13/2020 04:07 ET Escherichia coliUrine Culture,Comprehensive: [id number] coli Flag: APatient: JUANITO Waddell Order: [id number] Page 3Culture: CULTURE URINE Status: Final ISOLATE 1 Escherichia coli Isolate 1Antibiotic FROILAN IntUnits ug/mL Amoxicillin/Clavulanic Acid S S . . . . . .20-8Ampicillin R R . . . . . .28-1Cefazolin R R . . . . . .76-0Cefepime R R . . . . . .6644-9Ceftriaxone R R . . . . . .141-2Cefuroxime R R . . . . . .145-3Ciprofloxac in S S . . . . . .185-9Ertapenem S S . . . . . .65162- 0Gentamicin S S . . . . . .267-5Imipenem S S . . . . . .279-0Levofloxacin S S . . . . . .58776-5Wvelkjeir S S . . . . . .6652-2Nitrofurantoin S S . . . . . .363- 2Piperacillin/Tazobactam S S . . . . . .412-7Tetracycline R R . . . . . .496-0Tobramycin S S . . . . . .508-2Trimethoprim/Sulfa R R . . . . . .516-5P1 Test performed by: [facility] #: [id number] [address] [place] [id number] [facility] [id number] Director : Keith Hollis MD NPI #:[employer] : 02/13/20.0646.XMT.SENT REF 02/14/20.1528.XMT.SENT REF 02/14/20.1536.XMT.SENT REF ID Date Data Source [id number] 02/09/2020 11:49:00 PM EDT [facility] Name Value Range Interpretation Code Description Data Shira rce(s) Supporting Document(s) [facility]YSIS [facility] URINALYS[facility] SOURCE R [facility] COLOR yellow NORMAL: Yellow [facility] CLARITY turbid NORMAL: Clear [facility] Specific gravity of Urine by Test strip 1.010 1.001 - 1.030 [facility] pH 7 5 - 9 [facility] Glucose [Mass/volume] in Urine by Test strip NORM NORMAL: Negat [facility] Bilirubin.total [Presence] in Urine by Test strip NEG NORMAL: Negative [facility] Ketones [Presence] in Urine by Test strip NEG NORMAL: Negative [facility] Protein [Mass/volume] in Urine by Test strip 30 NORMAL: Negat [facility] Nitrite [Presence] in Urine by Test strip POS NORMAL: Negative [facility] BLOOD 50 NORMAL: Negative A [facility] Leukocyte esterase [Presence] in Urine by Test strip 500 MAURIZIO L: Negative [facility] Urobilinogen [Mass/volume] in Urine by Test strip NOR less rocky n 1.0 mg/dL [facility] MICROSCOPIC See Below [facility] ital WBC 10 - 15 NORMAL: NONE SEEN A [facility] Erythrocytes [#/volume] in Urine by Test strip 7 - 10 NORMAL: NON E SEEN A [facility] EPITHELIAL MODERATE NORMAL: NONE SEEN A [facility] Bacteria [Presence] in Urine sediment by Light microscopy 1+ SMALL NORMAL: NONE SEEN [facility] ID Date Data Source [id number] 02/09/2020 11:46:[address] [facility] Name Value Range Interpretation Code Description Data Shira rce(s) Supporting Document(s) HCG URINE QUAL NEGATIVE NORMAL: NEGATIVE [facility] HCG URINE QL REENTER NEGATIVE NORMAL: NEGATIVE [facility] { KIT LOT # [id number] ){ KIT EXP DATE 05-27-21 ){ PROCEDURAL CONTROL VALID ) Procedure Vital Signs ID Date Data Source UNK Name Value Range Interpretation Code Description Data Source(s) Body surface area Derived from formula 2.04 m2 2.04 m2 [facility] ([facility]) Body mass index (BMI) [Ratio] 33.9 kg/m2 33.9 k g/m2 [facility] ([facility]) Body height 66 [in_i] 66 [in_i] [facility] ([facility]) 5'6" Body weight 95.256 kg 95.256 kg [facility] ([facility]) Body weight 210.00 [lb_av] 210.00 [lb_av] [facility] ([facility]) Oxygen saturation in Arterial blood by Pulse oximetry 98 % 98 % [facility] Respiratory rate 16 /min 16 /min [facility] Body temperature 98.0 [degF] 98.0 [degF] [facility] ([facility]) Heart rate 96 /min 96 /min [facility] ([facility]) Diastolic blood pressure 85 mm[Hg] 85 mm[Hg] [facility] ([facility]) Systolic blood pressure 134 mm[Hg] 134 mm[Hg] M [facility] ([facility])
--- OUTSIDE RECORDS SUMMARY | 2020-09-11 06:12 | CCD ---
Author Author [facility] Organization [facility] Address Unknown Phone Unavailable Care Team Providers Care Real Estate Rental Agent Name Role Phone Hood RAMIREZ MD Unavailable [...] Unavailable Unavailable Hood RAMIREZ MD Unavailable Unavailable OBEN, T BAR MD [...] Unavailable OBEN, T BAR MD Unavailable Unavailable OBHood COON MD Unavailable Unavailable OBJAYMIE T BAR DUNBAR Unavailable Unavailable OBJAYMIE T BAR DUNBAR Unavailable Unavailable OBJAYMIE T BAR DUNBAR Unavailable Unavailable OBJAYMIE T BAR Unavailable Unavailable OBJAYMIE T BAR Unavailable Unavailable OBEN, T BAR Unavailable Unavailable OBJAYMIE T BAR Unavailable Unavailable OBJAYMIE, T BAR Unavailable Unavailable OBJAYMIE T BAR Unavailable Unavailable OBHood COONIX Unavailable Unavailable OBJAYMIE T BAR Unavailable Unavailable OBJAYMIE T BAR Unavailable Unavailable OBJAYMIE, T BAR Unavailable Unavailable OBJAYMIE T BAR Unavailable Unavailable OBJAYMIE, T BAR Unavailable Unavailable OBJAYMIE T BAR Unavailable Unavailable OBHood COON MD Unavailable Unavailable OBHood COONIX Unavailable Unavailable OBHood COONIX Unavailable Unavailable UNKNOWN, CLINIC EV Unavailable Unavailable [...] Unavailable Unavailable Tiffany SALDANA MD Unavailable Unavailable Tfifany SALDANA MD Unavailable Unavailable Tiffany SALDANA MD [...] is protected by Article 27-F of the [facility] Public Health law. If you continue you may have access to information: Regarding HIV / AIDS; Provided by facilities licensed or operated by the [facility] Office of Mental Health; or Provided by the [facility] Office for People With Developmental Disabilities. If such information is present, then the following [facility] mandated warning applies: This information has been [...] law may result in a fine or retirement sentence or both. A general authorization for the release of medical or other information is NOT sufficient authorization for further disc losure. Encounters Encounter Providers Location Date Indications Data Source(s ) Emergency Attender: BENEDICT HERNANDEZConsultant: EV RAMSAY 09/10/2020 03:48:00 PM EST - 09/11/2020 01:54:00 AM [facility] Patient discharged. Outpatient Attender: BAR RAMIREZ MD 08/27/19 01:57:00 PM EST - 08/27/2020 01:57:00 PM [facility] Outpatient Attender: BAR RAMIREZ MD [facility] 08/27/2020 01:00:0 0 PM EST [facility] ([facility]) Emergency Attender: TORREY AREVALO DO 2019 07:16:00 PM EST - 06/21/2020 10:04:00 PM [facility] Patient discharged. Emergency Attender: MAURIZIO SALDANA MD 2019 02:47:00 PM EST - 06/19/2020 06:18:00 PM [facility] Patient discharged. Emergency Attender: BENEDICT HERNANDEZ 2019 10:19:00 PM EST - 06/17/2020 01:20:00 AM [facility] Patient discharged. Outpatient 05/16/2020 09:50:00 AM EDT [facility] Emergency Attender: SAMIR POOLE MD 05/16 09:17:00 AM EDT - 05/16/2020 11:45:00 AM EDT [facility] Patient discharged. Emergency Attender: SAMIR POOLE MD 02/28 09:35:00 PM EDT - 03/01/2020 12:57:00 AM EDT [facility] Patient discharged. Outpatient 02/10/2020 12:15:00 AM EDT [facility] Outpatient 02/09/2020 11:40:00 PM EDT [facility] Emergency Attender: TORREY AREVALO 2019 11:06:00 PM EDT - 02/10/2020 01:57:00 AM EDT [facility] Patient discharged. Insurance Providers Payer name Policy type / Coverage type Policy ID Covered constitution party ID Covered constitution party's relationship to velasquez Policy Velasquez Plan Information [facility] XDC DUTY [id number] SP [id number] [facility] - O/P [id number] 18 [id number] [facility] [place] [id number] 18 [id number] ANSI-Not a Secondary Insurance [id number] [facility] [id number] SP [id number] Problems, Conditions, and Diagnoses Code Display Name Description Problem Type Effective Dates Data Source(s) L509 Urticaria, unspecified Urticaria, unspecified Diagnosi s 06/21/2020 07:16:00 PM [facility] 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 Diagnosis 06/21/2020 07:16:00 PM [facility] R1031 Right lower quadrant pain Right lower quadrant pain Di agnosis 06/21/2020 07:16:00 PM [facility] N390 Urinary tract infection, site not specif ied Urinary tract infection, site not specified Diagnosis 06/16/2020 10:19:00 PM [facility] N10 Acute pyelonephritis Acute pyelonephritis Diagnosis 06/16/2020 10:19:00 PM [facility] R109 Unspecified abdominal pain Unspecified abdominal pain Diagnosis 06/16/2020 10:19:00 PM [facility] R197 Diarrhea, unspecified Diarrhea, unspecified Diagnosis 05/16/2020 09:17:00 AM EDT [facility] N3001 Acute cystitis with hematuria Acute cystitis with gladis turia Diagnosis 05/16/2020 09:17:00 AM EDT [facility] E33639 Personal history of urinary (tract) infe ctions Personal history of urinary (tract) infections Diagnosis 02/29/2020 09:35:00 PM EDT [facility] N3000 Acute cystitis without hematuria Acute cystitis without hematuria Diagnosis 02/29/2020 09:35:00 PM EDT [facility] R30080 Tension-type headache, unspecified, not intractable Tension-type headache, unspecified, not intractable Diagnosis 02/29/2020 09:35:00 P M EDT [facility] N201 Calculus of ureter Calculus of ureter Diagnosis 0 11:06:00 PM EDT [facility] R1011 Right upper quadrant pain Right upper quadrant pain Di agnosis 02/09/2020 11:06:00 PM EDT [facility] Results ID Date Data Source [id number] 09/10/2020 03:48:00 PM EST [facility] 1 OrderSheet [facility] Emergency Department [address] [place] [address] Phone #: [phone] 09/10/2020 15:40 Patient: SCARLET SOLOMON Sex: F [...] STAT 15:59 09/10/2020 16:02 Karma Eddy Riccardo R.NElder Dooley;Acetaminophen STAT 15:59 09/10/2020 16:02 Bety Eddy Riccardo R.N. MAnaid;Salicylate Level STAT 15:59 09/10/2020 16:02 Karma Eddy Riccardo R.NElder M.DElder;ETOH STAT 15:59 09/10/2020 16:02 Karma Eddy Riccardo R.N. M.Gema;Urinalysis (Clean STAT 15:59 09/10/2020 16:02 Myron Eddy Riccardo R.N. M.D.;Venous Blood Gas STAT 15:59 09/10/2020 16:02 Karma Eddy Riccardo R.N. M.DElder;Beta-HCG, Qual STAT 15:59 09/10/2020 16:02 Robin Eddy Riccardo R.NElder MAnaid; 2 OrderSheet [facility] Emergency Department [address] [place] [address] Phone #: ext- [phone] 09/10/2020 15:40 Patient: SCARLET SOLOMON Sex: F : 2000 Age: 20yCOVID-19 CAH (Not STAT 15:59 09/10/2020 16:11 Jabari Eddyymptomatic as Benedict Hernandez R.N.Defined by CDC) Soumya;(09/10/2020) (FirstTest) (NotHospitalized) (Not) (NotResident inCongregate CareSetting) (NotEmployed inHealthcare Setting)Culture, Urine STAT 17:14 09/10/2020 17:15 Karma Eddy(Urine, Clean Turrin, Benedict R.N.Catch) M.D.;DIAGNOSTIC STUDY ORDERSOrder Description Priority Entered Acknowledged InitialedChest [...] 15:59 09/10/2020 16:02 Karma Eddy 3 OrderSheet [facility] Emergency Department [address] [place] [address] Phone #: ext- [phone] 09/10/2020 15:40 Patient: SCARLET SOLOMON Sex: F : 2000 Age: 20y Shen Hernandezcardo R.N. M.DElder;Saline Lock 15:59 09/10/2020 16:02 Karma Eddy, Benedict R.N. M.DElder;Reconditioner 15:59 09/10/2020 16:02 Karma Eddy(continuous) Benedict eHrnandez R.N., M.D.;EKG 15:59 09/10/2020 16:02 Karma Eddy Riccardo R.N. M.D.;Transfer: 23:25 09/10/2020 00:22 09/11/2020 Benedict Hernandez Katelyn M.D.;-- (Consult ER MD) 23:25 09/10/2020 00:22 09/11/2020 Benedict Hernandez Katelyn M.D.;[Electronically signed by Suni Bradford (01:55 09/11/2020)][Electronically signed by Benedict Hernandez M.D. (02:06 09/11/2020)][Electronically locked by Suni Bradford (01:55 09/11/2020)] Name Value Range Interpretation Code Description Data Shira rce(s) Supporting Document(s) ID Date Data Source [id number] 09/10/2020 03:48:00 PM [facility] 1 Medication Reconciliation Report [facility] Emergency Department [address] [place] [address] Phone #: ext- [phone] 09/10/2020 15:40 Patient: [...] rce(s) Supporting Document(s) ID Date Data Source [id number] 09/10/2020 03:48:00 PM [facility] 1 Medication Administration Record [facility] Emergency Department [address] [place] [address] Phone #: ext- [phone] 09/10/2020 15:40 Patient: SCARLET SOLOMON Sex: F : 2000 Age: 20yWeight: 104.4 kgHeight/Length: 66 inBMI: 37.2ALLERGIES: No Known Drug Allergy Date/Time Medication Administered Medication OrderedStart IV NS NS IV 1000 mL Bolus: : Bolus 397308:[id number] 09/10/2020 Dose: IV Fluids mL (X1)Karma Eddy [...] rce(s) Supporting Document(s) ID Date Data Source [id number] 09/10/2020 03:48:00 PM [facility] 1 General Instructions [facility] Emergency Department [address] [place] [address] Phone #: ext- [phone] 09/10/2020 15:40 Patient: [...] rce(s) Supporting Document(s) ID Date Data Source [id number] 09/10/2020 03:48:00 PM [facility] 1 Clinical Report - Nurses [facility] Emergency Department [address] [place] [address] Phone #: ext- [phone] 09/10/2020 15:40 Patient: [...] or Coronavirus. 2 Clinical Report - Nurses [facility] Emergency Department [address] [place] [address] Phone #: ext- [phone] 09/10/2020 15:40 [id number] Sex: F : 2000 Age: 20y SELF [...] PROGRESS NOTES 3 Clinical Report - Nurses [facility] Emergency Department [address] [place] [address] Phone #: ext- [phone] 09/10/2020 15:40 Patient: SCARLET SOLOMON Sex: F [...] of allergic reaction and precautions.Verbalizes understanding. --16:06 09/10/20 Karma Eddy R.N.( Poison control called internal communications writer spoke to Liss, supportive measures at [...] RR: 14. O2 saturation: 100%. --16:29 09/10/20 Brooks [employer] Josette, Tech1( resting at present cooperative). --17:19 09/10/20 Karma Eddy R.N.17:20 09/10/2020 Macrodantin (Nitrofurantoin Macrocrystal) PO Capsules 100 mg given. Allergies verifiedand confirmed 5 rights. Information reviewed with patient including reason for taking this medication, signsof allergic reaction and precautions. Verbalizes understanding. --17:20 09/10/20 Karma Eddy R.N.17:22 09/10/20. BP: 128/64. MAP: 85. HR: 74. RR: 13. O2 saturation: 99%. --17:23 09/10/20 Brooks [employer] Josette, [employer] Sqis681:27 09/10/20. BP: 117/50. MAP: 72. HR: 71. RR: 23. O2 saturation: 100%. --17:27 09/10/20 [facility] Tech1 4 Clinical Report - Nurses [facility] Emergency Department [address] [place] [address] Phone #: ext- [phone] 09/10/2020 15:40 Patient: [...] RR: 21. O2 saturation: 99%. --18:12 09/10/20 Brooks EDJosette Garcia, ER Yggq442:33 09/10/20. BP: 102/75. MAP: 84. HR: 78. RR: 16. O2 saturation: 97%. --18:33 09/10/20 [facility] Kgwr661:58 09/10/20. BP: 125/66. MAP: 85. HR: 87. RR: 16. O2 saturation: 100%. --18:59 09/10/20 Brooks EDJosette Garcia, ER Nmpa107:28 09/10/20. BP: 115/59. MAP: 77. HR: 79. RR: 13. O2 saturation: 97%. --19:29 09/10/20 Kv[facility] Josette Garcia, ER Mrli226:58 09/10/20. BP: 132/68. MAP: 89. HR: 76. RR: 16. O2 saturation: 96%. --19:58 09/10/20 [facility] Tech[facility]( called [facility] spoke to Haydee about pt being transferred to ER [facility], was told the the MD Kim hasthe [...] Reassurance given. 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 2 Clinical Report - Physicians/Mid Levels [facility] Emergency Department [address] [place] [address] Phone #: ext- [phone] 09/10/2020 15:40 Patient: SCARLET SOLOMON Sex: F [...] results 3 Clinical Report - Physicians/Mid Levels [facility] Emergency Department [address] [place] [address] Phone #: ext- [phone] 09/10/2020 15:40 Patient: [...] Male GFR Interprentation 20-49 yrs >60 mL/min Hwwkxz89-70 yrs >56 mL/min Normal 60-69 yrs >49 mL/min Normal 70-79yrs>42 mL/min Normal 80 and above >35 mL/min Normal Female GFR 4 Clinical Report - Physicians/Mid [facility] Emergency Department [address] [place] [address] Phone #: ext- [phone] 09/10/2020 15:40 Patient: SCARLET SOLOMON Sex: F : 2000 Age: 20yInterpretation 20-39 yrs >60 mL/min Normal 40-49 yrs >58 mL/minNormal 50-59 yrs >51 mL/min Normal 60-69 yrs >45 mL/min Efjatg54-10 yrs >39 mL/min Normal 80 and above [...] PRESUMPTIVE POSITIVE CONFIRMATION WILL BE PERFORMED AT [facility].Acetaminophen Level: (STELLA: 09/10/2020 16:01) ( [facility] 09/10/2020 18:28) Final results Test Result Flag Units (Reference) ACETAMINOPHEN <5.0 UG/ML (0.0 - 30.0)Salicylate Level: (STELLA: 09/10/2020 16:01) ( [facility] 09/10/2020 17:06) Final results Test Result Flag Units (Reference) SALICYLATE <0.3 L mg/dL (2.0 - 20.0)ETOH: (STELLA: 09/10/2020 16:01) ( [facility] 09/10/2020 17:04) Final results Test Result Flag Units (Reference) ALCOHOL <10.0 MG/DL ALCOHOL % 0.01 % (0.00 - 0.01) *FOR MEDICAL PURPOSES ONLY*Urinalysis: (STELLA: 09/10/2020 16:00) ( [facility] 09/10/2020 16:51) Final results Test Result Flag Units (Reference) URINALYSIS URINALYSIS SOURCE Clean Catch COLOR yellow (NORMAL: Yello CLARITY hazy (NORMAL: Clear SPEC GRAVITY 1.010 (1.001 - 1.030 pH 7 (5 - 9) GLUCOSE NORM (NORMAL: Negat 5 Clinical Report - Physicians/Mid Levels [facility] Emergency Department [address] [place] [address] Phone #: ext- [phone] 09/10/2020 15:40 Patient: SCARLET SOLOMON Sex: F [...] NONEVenous Blood Gas: (STELLA: 09/10/2020 16:01) ( [facility] 09/10/2020 16:26) Final results Test Result Flag [...] NEGATIVE (NORMAL: NEGAT { KIT LOT # [id number] ){ KIT EXP [id number] ){ PROCEDURAL CONTROL VALID)COVID-19 CAH: (STELLA: 09/10/2020 16:07) ( MsgRcvd 09/10/2020 16:36) Final results Test Result Flag Units (Reference) COVID-19 NOT DETECTED COVID-19 REENTER NOT DETECTED { PROCEDURAL CONTROL VALID KIT LOT # _[id number] 09/10/20.6.DW . KIT EXP DATE _27-62-44 14/27/21.6.DW . NORMAL RANGE IS NOT DETECTEDNEGATIVE RESULTS SHOULD BE TREATEDAS PRESUMPTIVE AND, IF INCONSISTENT WITHCLINICAL SIGNS AND SYMPTOMS OR NECESSARY FOR PATIENT MANAGEMENT, SHOULDBETESTED WITH DIFFERENT AUTHORIZED OR CLEARED MOLECULAR TESTS. NEGATIVE RESULTSDO NOT PRECLUDE [id number] AND SHOULD NOT BE USED THE SOLE BASISFOR PATIENT MANAGEMENT DECISIONS.Chest Portable 1 View: (STELLA: 09/10/2020 15:59) ( MsgRcvd 09/10/2020 22:48) In ProgressCHEST PORTABLEReason(s): OverdoseTRANSPORTATION: P IV? O2? Oxygen?(No) Room: ED [place] [address] PHONE: [phone] FAX: [phone] Name .................. : JUANITO Waddell Acct Number.................. : [id number] ROOM. ................. : TR-02 Number ................... : [id number] Clinical Report - Physicians/Mid Levels [facility] Emergency Department [address] [place] [address] Phone #: ext- [phone] 09/10/2020 15:40 Patient: SCARLET SOLOMON Sex: F : 2000 Age: 20y Stay type ............. : E/R Discharge Date......... ... : Admit Date ......... : 09/10/20 Admit Phys .................... : TURRIN SHEN Date of ....... : 2000 Family Phys ................... : UNKNOWN CO Phone .................. : [phone] Age ................................ : 20 Film# .................. .:[id number] Sex ................................. : F Unsigned transcriptions are preliminary reports and do not represent a medical or legal document CHEST PORTABLE [id number] COMPLETE:09/10/20 20:13 KJE 3083 Reason(s): Overdose PORTABLE CHEST X-RAY: INDICATION: Overdose. FINDINGS: The cardiac and mediastinal silhouettes appear normal and the lungs are clear. The bones and soft tissues are normal. The upper abdomen is unremarkable. IMPRESSION: No acute disease identifiable. Electronically Reviewed and Signed By LUPE SIGNDAAISHA SIMON Transcribe Initials: BENJAMIN , Transcribe Date: 09/10/20 [...] 09/10/20. pt resting on stretcher; waiting for [facility] ER to call back for transfer 23:21 09/10/20. still waiting for [facility] ER to call back, pt sleeping on stretcher 00:00 09/11/20. Dr. Kim, ER MD at [facility], called back and accepted pt for transfer. 7 Clinical Report - Physicians/Mid Levels [facility] Emergency Department [address] [place] [address] Phone #: ext- [phone] 09/10/2020 15:40 Patient: SCARLET SOLOMON Sex: F [...] to transfer explained to patient. Transferred to [facility]. Summary of care (CCDA) provided to transport [...] rce(s) Supporting Document(s) ID Date Data Source [id number] 09/10/2020 04:36:00 PM [facility] NOT DETECTEDNOT DETECTED{ PROC EDURAL CONTROL VALID KIT LOT # _[id number] 09/10/20.1635.DW . KIT EXP DATE _35-34-54 09/10/20.DW . NORMAL RANGE IS NOT DETECTEDNEGATIVE RESULTS [...] rce(s) Supporting Document(s) ID Date Data Source [id number] 09/10/2020 06:28:00 PM [facility] Name Value Range Interpretation Code Description Data Shira rce(s) Supporting Document(s) Acetaminophen [Presence] in Urine <5.0 UG/ML 0.0 - 30.0 [facility] ID Date Data Source [id number] 09/10/2020 05:13:00 PM [facility] Name Value Range Interpretation Code Description Data Shira rce(s) Supporting Document(s) COMPREHENSIVE METABOLIC PANEL [facility] COMPREHENSIVE METABOLIC PANEL Sodium [Moles/volume] in Serum or Plasma 137 mEq/L 134 - 153 [facility] Potassium [Moles/volume] in Serum or Plasma 3.9 mEq/L 3.6 - 5.0 [facility] Chloride [Moles/volume] in Serum or Plasma 101 mEq/L 98 - 107 [facility] Carbon dioxide, total [Moles/volume] in Serum or Plasma 26 MEQ/L 22 - 30 [facility] Glucose [Mass/volume] in Serum or Plasma 94 MG/DL 70 - 99 [facility] BUN 11 [facility] 7 - [facility] Creatinine [Mass/volume] in Serum or Plasma 0.5 MG/DL 0.7 - 1.5 L [facility] BUN/CREAT 22 8 - 27 [facility] Protein [Mass/volume] in Serum or Plasma 7.1 G/DL 6.3 - 8.2 [facility] Albumin [Mass/volume] in Serum or Plasma 4.5 G/DL 3.9 - 5.0 [facility] Globulin [Mass/volume] in Serum by calculation 2.6 GM/DL 2.4 - 3.2 [facility] A/G RATIO 1.7 0.8 - 2.0 [facility] Calcium [Mass/volume] in Serum or Plasma 9.1 MG/DL 8.4 - 10.2 [facility] Bilirubin.total [Mass/volume] in Serum or Plasma <0.7 MG/DL 0.2 - 1.3 [facility] Alkaline phosphatase [Enzymatic activity/volume] in Serum or Plasma 103 U/L 38 - 126 [facility] Aspartate aminotransferase [Enzymatic activity/volume] in Serum or Plasma 22 U/L 5 - 40 [facility] Alanine aminotransferase [Enzymatic activity/volume] in Seru m or Plasma 20 U/L 7 - 56 [facility] Anion gap 3 in Serum or Plasma 10.0 mmol/L 8.0 - 16.0 [facility] AGE 20 yrs [facility] al NON-AA GFR >60 mL/min [facility] AFR AMER GFR >60 mL/min [facility] Male GFR In terprentation [...] >32 mL/min Normal ID Date Data Source [id number] 09/10/2020 05:05:00 PM [facility] Name Value Range Interpretation Code Description Data Shira rce(s) Supporting Document(s) SALICYLATE <0.3 mg/dL 2.0 - 20.0 L [facility] ID Date Data Source [id number] 09/10/2020 05:04:00 PM [facility] Name Value Range Interpretation Code Description Data Shira rce(s) Supporting Document(s) Ethanol [Moles/volume] in Blood <10.0 MG/DL [facility] ALCOHOL % 0.01 % 0.00 - 0.01 [facility] ital *FOR MEDICAL PURPOSES ONLY * ID Date Data Source [id number] 09/10/2020 05:04:00 PM EST [facility] Name Value Range Interpretation Code Description Data Shira rce(s) Supporting Document(s) Thyrotropin [Units/volume] in Serum or Plasma by Detec tion limit <= 0.05 mIU/L 2.48 uIU/mL 0.47 - 5.01 [facility] ID Date Data Source [id number] 09/10/2020 04:52:00 PM EST [facility] Name Value Range Interpretation Code Description Data Shira e(s) Supporting Document(s) CBC W/AUTOMATED DIFF [facility] COMPLETE BLOOD COUNT Leukocytes [#/volume] in Blood by Automated count 10.6 10^3/uL 4.2 - 11.0 [facility] Erythrocytes [#/volume] in Blood by Automated count 4.73 10^6/uL 4. 20 - 5.40 [facility] Hemoglobin [Mass/volume] in Blood 13.9 g/dL 12.0 - 16.0 [facility] Hematocrit [Volume Fraction] of Blood by Automated count 41.0 % 3 7.0 - 47.0 [facility] Erythrocyte mean corpuscular volume [Entitic volume] by Auto mated count 86.7 fL 81.0 - 101 [facility] Erythrocyte mean corpuscular hemoglobin [Entitic mass] by Automated count 29.4 pg 27.0 - 34.0 [facility] Erythrocyte mean corpuscular hemoglobin concentration [Mass/volume] by Automated count 33.9 g/dL 31.0 - 36.0 [facility] Erythrocyte distribution width [Ratio] by Automated count 11.7 % 11.5 - 14.5 [facility] Platelets [#/volume] in Blood by Automated count 413 10^3/uL 150 - 45 0 [facility] Platelet mean volume [Entitic volume] in Blood by Automated count 8.6 fL 7.4 - 10.4 [facility] Neutrophils/100 leukocytes in Blood by Automated count 68.1 % 37. 0 - 80.0 [facility] Lymphocytes/100 leukocytes in Blood by Manual count 21.4 % 25.0 - 40.0 L [facility] Monocytes/100 leukocytes in Blood by Automated count 7.7 % 3.0 - 8.0 [facility] Eosinophils/100 leukocytes in Blood by Automated count 1.8 % 0.0 - 7.0 [facility] Basophils/100 leukocytes in Blood by Automated count 0.6 % 0.0 - 2.5 [facility] %IG 0.4 % 0.0 - 0.0 [facility] %NRBC 0.0 % 0.0 - 0.0 [facility] Neutrophils [#/volume] in Blood by Automated count 7.21 10^3/uL 2.00 - 6.90 H [facility] Lymphocytes [#/volume] in Blood by Automated count 2.26 10^3/uL 0.60 - 3.40 [facility] [facility] Monocytes [#/volume] in Blood by Automated count 0.81 10^3/uL 0.00 - 0.90 [facility] Eosinophils [#/volume] in Blood by Automated count 0.19 10^3/uL 0.00 - 0.70 [facility] Basophils [#/volume] in Blood by Automated count 0.06 10^3/uL 0.00 - 0.20 [facility] #IG 0.04 10^3/uL 0.00 - 0.10 [facility] ospital #NRBC 0.00 10^3/uL 0.00 - 0.00 [facility] MANUAL DIFF NOT INDICATED [facility] RBC MORPH NOT INDICATED [facility] spital ID Date Data Source [id number] 09/10/2020 04:50:00 PM EST [facility] Name Value Range Interpretation Code Description Data Shira rce(s) Supporting Document(s) HCG SERUM QUAL NEGATIVE NORMAL: NEGATIVE [facility] HCG SERUM QL REENTER NEGATIVE NORMAL: NEGATIVE [facility] { KIT LOT # [id number] ){ KIT EXP DATE 05-20-21 ){ PROCEDURAL CONTROL VALID ) ID Date Data Source [id number] 09/10/2020 04:26:00 PM EST [facility] Name Value Range Interpretation Code Description Data Shira rce(s) Supporting Document(s) pH of Serum or Plasma 7.34 7.32 - 7.43 [facility] pCO2 V 51.0 mm/HG 38.0 - 51.0 [facility] pO2 V 28.4 mm/HG 30.0 - 55.0 L [facility] Bicarbonate [Moles/volume] in Venous blood 26.7 meq/L 22.0 - 29.0 [facility] TCO2 V 28.3 meq/L 22.0 - 29.0 [facility] Base excess in Blood by calculation 0.1 -2.0 - 2.0 [facility] O2 SAT V 48.5 % 40.0 - 85.0 [facility] ital ID Date Data Source [id number] 09/10/2020 04:52:00 PM [facility] Name Value Range Interpretation Code Description Data Shira rce(s) Supporting Document(s) DRUG SCREEN URINE [facility] URINE DRUG SCREEN Amphetamine [Presence] in Urine by Screen method NEGATIVE NORMAL: N EGATIVE [facility] BARBITURATES NEGATIVE NORMAL: NEGATIVE [facility] BENZO NEGATIVE NORMAL: NEGATIVE [facility] COCAINE NEGATIVE NORMAL: NEGATIVE [facility] Tetrahydrocannabinol [Presence] in Urine NEGATIVE NORMAL: NEGATIVE [facility] OPIATES NEGATIVE NORMAL: NEGATIVE [facility] Phencyclidine [Presence] in Urine by Screen method NEGATIVE NOR MAL: NEGATIVE [facility] \\BLDo\\URINE DRUG SCR EEN INTERPRETATION\\BLDx\\ THE CUTOFFF LEVELS FOR DETECTION ARE FOLLOWS: AMPHETAMINES 1000 ng/ml BARBITUARATES 200 ng/ml BENZODIAZEPINES 100 ng/ml THC 50 ng/ml PHENCYCLIDINE 25 ng/ml OPIATES 300 ng/ml COCAINE 300 ng/ml ALL POSITIVES ARE CONSIDERED PRESUMPTIVE POSITIVE CONFIRMATION WILL BE PERFORMED AT PHYSICIAN REQUEST. ID Date Data Source [id number] 09/10/2020 04:51:00 PM EST [facility] Name Value Range Interpretation Code Description Data Shira rce(s) Supporting Document(s) URINALYSIS [facility] yulia URINALYSIS SOURCE Clean Catch [facility] ital COLOR yellow NORMAL: Yellow [facility] ospital CLARITY hazy NORMAL: Clear [facility] spital Specific gravity of Urine by Test strip 1.010 1.001 - 1.030 [facility] pH 7 5 - 9 [facility] Glucose [Mass/volume] in Urine by Test strip NORM NORMAL: Negat [facility] Bilirubin.total [Presence] in Urine by Test strip NEG NORMAL: Negative [facility] Ketones [Presence] in Urine by Test strip NEG NORMAL: Negative [facility] Protein [Mass/volume] in Urine by Test strip 30 NORMAL: Negat [facility] Nitrite [Presence] in Urine by Test strip POS NORMAL: Negative [facility] BLOOD 250 NORMAL: Negative A [facility] Leukocyte esterase [Presence] in Urine by Test strip 25 MAURIZIO L: Negative [facility] Urobilinogen [Mass/volume] in Urine by Test strip NOR less rocky n 1.0 mg/dL [facility] MICROSCOPIC See Below [facility] WBC 3 - 5 NORMAL: NONE SEEN [facility] Erythrocytes [#/volume] in Urine by Test strip 15 - 20 NORMAL: NON E SEEN A [facility] EPITHELIAL MANY NORMAL: NONE SEEN A [facility] Bacteria [Presence] in Urine sediment by Light microscopy 2+ MOD NORMAL: NONE SEEN A [facility] ID Date Data Source [id number] 08/27/2020 01:26:00 PM EST [facility] Name Value Range Interpretation Code Description Data Shira rce(s) Supporting Document(s) Color of Urine Laboratory test result [facility] ([facility]) Appearance of Urine Laboratory test result [facility] ([facility]) pH of Urine by Test strip 5 [facility] NT ([facility]) Spec [place] 1.020 [facility] ([facility]) Leukocytes Laboratory test result [facility] ([facility]) Nitrate [Presence] in Urine Laboratory test result [facility] ([facility]) Inhouse Glucose Laboratory test result [facility] ([facility]) Protein [Presence] in Urine by Test strip Laboratory test result [facility] ([facility]) Urobilinogen Laboratory test result [facility] ([facility]) Ketones [Presence] in Urine by Test strip Laboratory test result [facility] ([facility]) Bilirubin.total [Presence] in Urine by Test strip Laboratory test res ult [facility] ([facility]) Blood type and Indirect antibody screen panel - Blood 250 [facility] ([facility]) ID Date Data Source [id number] 06/22/2020 11:52:00 AM [facility] Name Value Range Interpretation Code Description Data Shira rce(s) Supporting Document(s) LAB - SPECIMEN REJECTION [facility] Specimen Integrity/Specimen Recollection The patient sample needs to be resubmitted for the following reason: Test(s) Ordered GI PANEL [facility] Rejection Reason Sample Compromised [facility] { One or more of the tests you ordered cannot be performed.{ Please recollect, reorder, and resubmit if needed. ID Date Data Source [id number] 06/21/2020 07:16:00 PM [facility] 1 OrderSheet [facility] Emergency Department [address] [place] [address] Phone #: ext- [phone] 06/21/2020 19:02 Patient: SCARLET SOLOMON Sex: F : 2000 Age: 20yWEIGHT:86.1 kg (S) HEIGHT:66 inches (S) BMI:30.7ALLERGIES: NoneCHIEF COMPLAINT: abdominal pain, flank painDIAGNOSIS: Abdominal pain, Mesenteric lymphadenitis, UrticariaLAB ORDERSOrder Description Priority Entered Acknowledged InitialedGI 4 Panel 19:19 06/21/2020 19:20 Russell Wells Jennifer Jennifer R.N. R.N.; Verbal order per; Torrey Arevalo PhysicianUrinalysis (Clean STAT 19:20 06/21/2020 19:20 Eric Wells Jennifer Jennifer R.NElder RFranko; Verbal order per; Torrey Arevalo PhysicianCBC w [...] Written order per; Behzad Gomes 2 OrderSheet [facility] Emergency Department [address] [place] [address] Phone #: ext- [phone] 06/21/2020 19:02 Patient: SCARLET SOLOMON Sex: F [...] rce(s) Supporting Document(s) ID Date Data Source [id number] 06/21/2020 07:16:00 PM [facility] 1 Medication Reconciliation Report [facility] Emergency Department [address] [place] [address] Phone #: ext- [phone] 06/21/2020 19:02 Patient: SCARLET SOLOMON Sex: F [...] Dispense 20 tablet. Refills: 0. Substitutionpermitted.Pharmacy - [facility] [phone] ; [place] [address]. . -- Behzad Gomes Name Value Range Interpretation Code Description Data Shira rce(s) Supporting Document(s) ID Date Data Source [id number] 06/21/2020 07:16:00 PM [facility] 1 Medication Administration Record [facility] Emergency Department [address] [place] [address] Phone #: ext- [phone] 06/21/2020 19:02 Patient: SCARLET SOLOMON Sex: F : 2000 Age: 20yWeight: 86.1 kgHeight/Length: 66 inBMI: 30.7ALLERGIES: None Date/Time Medication Administered Medication OrderedStart IV NS W/ BOLUS IV NS 1000 mL Bolus : Bolus 131202:41 06/21/2020 Dose: IV Fluids mL (X1)Rashmi Hodges R.N. Rate: 1000 mL/hr---- Dispensed: 1000 mL bagStop Site: #1 right AC22:00 06/21/2020Rashmi Hodges R.N.Given BENTYL [PO] (DICYCLOMINE HCL) Bentyl PO 10 mg21:29 06/21/2020 Dose: 10 mg Capsules Rashmi Diaz R.N. Name Value Range Interpretation Code Description Data Shira rce(s) Supporting Document(s) ID Date Data Source [id number] 06/21/2020 07:16:00 PM [facility] 1 General Instructions [facility] Emergency Department [address] [place] [address] Phone #: ext- [phone] 06/21/2020 19:02 Patient: SCARLET SOLOMON Sex: F : 2000 Age: 20yAcute right lower quadrant abdominal pain.Acute hives secondary to unknown cause.Acute mesenteric lymphadenitisINSTRUCTIONSDrink plenty of fluids. Take clear liquids only.(Patient to follow up with primary medical doctor for possible referral to urologist and or transmitter engineer.Patient to take bentyl as directed. Patient to inform primary medical doctor of diagnosis of mesentericadenitis. Patient advised to stop antibiotic until c-diff test comes b ack.).Prescription Medications:dicyclomine 20 mg tablet Take 1 tablet four times a day -- Dispense 20 tablet. Refills: 0. Substitutionpermitted.Pharmacy - [facility] [phone] ; [place] [id number]. .Follow-up:Return to the emergency department if not [...] can be all over 2 General Instructions [facility] Emergency Department [address] [place] [address] Phone #: ext- [phone] 06/21/2020 19:02 Patient: [...] will be told if there are changes.Call [phone] if any of these occur: Trouble breathing 3 General Instructions [facility] Emergency Department [address] [place] [address] Phone #: ext- [phone] 06/21/2020 19:02 Patient: [...] skin Swelling in the abdomen Bloody stools [id number] [employer]. [address] [place] [address], [place] [address]. All rights reserved. This information is not [...] foods such as fruit, 4 General Instructions [facility] Emergency Department [address] [place] [address] Phone #: ext- [phone] 06/21/2020 19:02 Patient: [...] any of these occur: 5 General Instructions [facility] Emergency Department [address] [place] [address] Phone #: ext- [phone] 06/21/2020 19:02 Patient: SCARLET SOLOMON Sex: F : 2000 Age: 20y Fever of 100.4F (38.0C) or higher, or as directed by your healthcare provider Redness, swelling, or pain Foul-smelling fluid coming from the rashCall 911Call 911 if any of the following occur: Swelling of the face, throat, or tongue Trouble breathing or swallowing Dizziness, weakness, or fainting [id number] [employer] [address] [place] [address]. All rights reserved. This information is not intended as asubstitute for professional medical care. Always follow your healthcare professional's instructions. You have been given the following additional information: Adenitis, Mesenteric Hives (Adult)(Electronically signed by Behzad Gomes, 06/22/2020 11:46) Name Value Range Interpretation Code Description Data Shira rce(s) Supporting Document(s) ID Date Data Source [id number] 06/21/2020 07:16:00 PM EST [facility] 1 Clinical Report - Nurses [facility] Emergency Department [address] [place] [address] Phone #: ext- [phone] 06/21/2020 19:02 Patient: [...] was offered 2 Clinical Report - Nurses [facility] Emergency Department [address] [place] [address] Phone #: ext- [phone] 06/21/2020 19:02 Patient: SCARLET SOLOMON Sex: F [...] assessment completed. No skin integrity risk identified. --19:06/21/20 Nasreen Wells R.N. FAMILY HX: No significant family medical history. --19:31 06/21/20 Behzad Gomes. Interventions Identification band on patient. --19:10 06/21/20 Nasreen Wells RFrankoPHYSICAL ASSESSMENTAmbulatory to room.GENERAL / NEURO / PSYCH: [...] Wells R.N. 3 Clinical Report - Nurses [facility] Emergency Department [address] [place] [address] Phone #: ext- [phone] 06/21/2020 19:02 Patient: [...] Saline lock flushed with 10 mL saline. --19:06/21/20 Nasreen Wells R.N. 19:29 06/21/20. HR: 103. O2 saturation: 99%. --19:06/21/20 Nasreen Wells R.N. Care transferred and report given (Beth [...] Reviewed diet. 4 Clinical Report - Nurses [facility] Emergency Department [address] [place] [address] Phone #: ext- [phone] 06/21/2020 19:02 Patient: SCARLET SOLOMON Sex: Bairon : 2000 Age: 20y Follow up contact number. The patient was discharged by the physician circulation assistant. She was discharged home and unaccompanied [...] rce(s) Supporting Document(s) ID Date Data Source [id number] 06/21/2020 07:16:00 PM EST [facility] 1 Clinical Report - Physicians/Mid Levels [facility] Emergency Department [address] [place] [address] Phone #: ext- [phone] 06/21/2020 19:02 Patient: [...] deficit. 2 Clinical Report - Physicians/Mid Levels [facility] Emergency Department [address] [place] [address] Phone #: ext- [phone] 06/21/2020 19:02 Patient: SCARLET SOLOMON Sex: F : 2000 Age: 20yCLINICAL IMPRESSION Acute right lower quadrant abdominal pain. Acute hives secondary to unknown cause. Acute mesenteric lymphadenitisINSTRUCTIONS Drink plenty of fluids. Take clear liquids only. (Patient to follow up with primary medical doctor for possible referral to urologist and or transmitter engineer. Patient to take bentyl as directed. Patient to inform primary medical doctor of diagnosis of mesenteric adenitis. Patient advised to stop antibiotic until c-diff test comes back.). Prescription Medications: dicyclomine 20 mg tablet Take 1 tablet four times a day -- Dispense 20 tablet. Refills: 0. Substitution permitted. Pharmacy - [facility] [phone] ; [place] [address]. . Follow-up: Return to the emergency department if not better. Understanding of the discharge instructions verbalized by patient. Follow-up with: Follow up Tuesday. Call for an appointment. Reason for referral: evaluation and treatment.(Electronically signed by Behzad Gomes, 06/22/2020 11:46) Name Value Range Interpretation Code Description Data Shira rce(s) Supporting Document(s) ID Date Data Source [id number] 06/21/2020 08:04:00 PM [facility] Name Value Range Interpretation Code Description Data Shira rce(s) Supporting Document(s) Lipase [Enzymatic activity/volume] in Serum or Plasma 36 U/L 13 - 60 [facility] ID Date Data Source [id number] 06/21/2020 08:03:00 PM [facility] Name Value Range Interpretation Code Description Data Shira rce(s) Supporting Document(s) COMPREHENSIVE METABOLIC PANEL [facility] COMPREHENSIVE METABOLIC PANEL Sodium [Moles/volume] in Serum or Plasma 135 mEq/L 134 - 153 [facility] Potassium [Moles/volume] in Serum or Plasma 3.7 mEq/L 3.6 - 5.0 [facility] Chloride [Moles/volume] in Serum or Plasma 98 mEq/L 98 - 107 [facility] Carbon dioxide, total [Moles/volume] in Serum or Plasma 28 MEQ/L 22 - 30 [facility] Glucose [Mass/volume] in Serum or Plasma 105 MG/DL 65 - 110 [facility] BUN 13 MG/DL 7 - 21 [facility] Creatinine [Mass/volume] in Serum or Plasma 0.7 MG/DL 0.7 - 1.5 [facility] BUN/CREAT 19 8 - 27 [facility] Protein [Mass/volume] in Serum or Plasma 7.9 G/DL 6.3 - 8.2 [facility] Albumin [Mass/volume] in Serum or Plasma 4.6 G/DL 3.9 - 5.0 [facility] Globulin [Mass/volume] in Serum by calculation 3.3 GM/DL 2.4 - 3.2 H [facility] A/G RATIO 1.4 0.8 - 2.0 [facility] Calcium [Mass/volume] in Serum or Plasma 9.4 MG/DL 8.4 - 10.2 [facility] Bilirubin.total [Mass/volume] in Serum or Plasma <0.7 MG/DL 0.2 - 1.3 [facility] Alkaline phosphatase [Enzymatic activity/volume] in Serum or Plasma 94 U/L 38 - 126 [facility] Aspartate aminotransferase [Enzymatic activity/volume] in Serum or Plasma 25 U/L 5 - 40 [facility] Alanine aminotransferase [Enzymatic activity/volume] in Seru m or Plasma 24 U/L 7 - 56 [facility] Anion gap 3 in Serum or Plasma 9.0 mmol/L 8.0 - 16.0 [facility] AGE 20 yrs [facility] NON-AA GFR >60 mL/min [facility] ital AFR AMER GFR >60 mL/min [facility] spital Male GFR In terprentation [...] >32 mL/min Normal ID Date Data Source [id number] 06/21/2020 07:58:00 PM EST [facility] Name Value Range Interpretation Code Description Data Shira rce(s) Supporting Document(s) HCG SERUM QUAL NEGATIVE NORMAL: NEGATIVE [facility] HCG SERUM QL REENTER NEGATIVE NORMAL: NEGATIVE [facility] { KIT LOT # [id number] ){ KIT EXP DATE 05-20-21 ){ PROCEDURAL CONTROL VALID ) ID Date Data Source [id number] 06/21/2020 07:48:00 PM EST [facility] Name Value Range Interpretation Code Description Data Shira rce(s) Supporting Document(s) CBC W/AUTOMATED DIFF [facility] COMPLETE BLOOD COUNT Leukocytes [#/volume] in Blood by Automated count 11.6 10^3/uL 4.2 - 11.0 H [facility] Erythrocytes [#/volume] in Blood by Automated count 4.68 10^6/uL 4. 20 - 5.40 [facility] Hemoglobin [Mass/volume] in Blood 14.0 g/dL 12.0 - 16.0 [facility] Hematocrit [Volume Fraction] of Blood by Automated count 41.2 % 3 7.0 - 47.0 [facility] Erythrocyte mean corpuscular volume [Entitic volume] by Auto mated count 88.0 fL 81.0 - 101 [facility] Erythrocyte mean corpuscular hemoglobin [Entitic mass] by Automated count 29.9 pg 27.0 - 34.0 [facility] Erythrocyte mean corpuscular hemoglobin concentration [Mass/volume] by Automated count 34.0 g/dL 31.0 - 36.0 [facility] Erythrocyte distribution width [Ratio] by Automated count 11.4 % 11.5 - 14.5 L [facility] Platelets [#/volume] in Blood by Automated count 387 10^3/uL 150 - 45 0 [facility] Platelet mean volume [Entitic volume] in Blood by Automated count 8.7 fL 7.4 - 10.4 [facility] Neutrophils/100 leukocytes in Blood by Automated count 67.9 % 37. 0 - 80.0 [facility] Lymphocytes/100 leukocytes in Blood by Manual count 23.3 % 25.0 - 40.0 L [facility] Monocytes/100 leukocytes in Blood by Automated count 7.3 % 3.0 - 8.0 [facility] Eosinophils/100 leukocytes in Blood by Automated count 0.8 % 0.0 - 7.0 [facility] Basophils/100 leukocytes in Blood by Automated count 0.3 % 0.0 - 2.5 [facility] %IG 0.4 % 0.0 - 0.0 H [facility] %NRBC 0.0 % 0.0 - 0.0 [facility] al Neutrophils [#/volume] in Blood by Automated count 7.87 10^3/uL 2.00 - 6.90 H [facility] Lymphocytes [#/volume] in Blood by Automated count 2.71 10^3/uL 0.60 - 3.40 [facility] Monocytes [#/volume] in Blood by Automated count 0.85 10^3/uL 0.00 - 0.90 [facility] Eosinophils [#/volume] in Blood by Automated count 0.09 10^3/uL 0.00 - 0.70 [facility] Basophils [#/volume] in Blood by Automated count 0.04 10^3/uL 0.00 - 0.20 [facility] #IG 0.05 10^3/uL 0.00 - 0.10 [facility] ospital #NRBC 0.00 10^3/uL 0.00 - 0.00 [facility]ital MANUAL DIFF NOT INDICATED [facility] RBC MORPH NOT INDICATED [facility] spital ID Date Data Source [id number] 06/21/2020 07:47:00 PM EST [facility] Name Value Range Interpretation Code Description Data Shira rce(s) Supporting Document(s) [facility] COLOR yellow NORMAL: Yellow [facility]sp[facility] CLARITY clear NORMAL: Clear [facility] spital Specific gravity of Urine by Test strip 1.015 1.001 - 1.030 [facility] pH 7 5 - 9 [facility] Glucose [Mass/volume] in Urine by Test strip NORM NORMAL: Negat [facility] Bilirubin.total [Presence] in Urine by Test strip NEG NORMAL: Negative [facility] Ketones [Presence] in Urine by Test strip NEG NORMAL: Negative [facility] Protein [Mass/volume] in Urine by Test strip NEG NORMAL: Negat [facility] Nitrite [Presence] in Urine by Test strip NEG NORMAL: Negative [facility] BLOOD 10 NORMAL: Negative A [facility] Leukocyte esterase [Presence] in Urine by Test strip NEG MAURIZIO L: Negative [facility] Urobilinogen [Mass/volume] in Urine by Test strip 1 less rocky n 1.0 mg/dL [facility] MICROSCOPIC See Below [facility] ital WBC None Seen NORMAL: NONE SEEN [facility] Erythrocytes [#/volume] in Urine by Test strip None Seen NORMAL: NON E SEEN [facility] EPITHELIAL MODERATE NORMAL: NONE SEEN [facility] Bacteria [Presence] in Urine sediment by Light microscopy No ne Seen NORMAL: NONE SEEN [facility] Mucus [Presence] in Urine sediment by Light microscopy None Seen NORMAL: NONE SEEN [facility] Amorphous sediment [Presence] in Urine sediment by Light froilan roscopy RARE NORMAL: NONE SEEN [facility] ID Date Data Source [id number] 06/20/2020 10:34:00 AM EST [facility] [address] [place] [address] PHONE: [phone] FAX: [phone] Name .................. : JUANITO NOVAK [place]airon Acct Number.................. : [id number] ROOM. ................. : TR-1A MR Number ................... : [id number] Stay type ............. : E/R Discharge Date......... ... : 06/19/20 Admit Date ......... : 06/19/20 Admit Phys .................... : COONEYNORM Date of ....... : 2000 Family Phys ................... : UNKNOWN CO Phone .................. : [phone] Age ................................ : 20 Film# .................. .:[id number] Sex ................................. : F Unsigned transcriptions are preliminary reports and do not represent a medical or legal document CT ABD & PELVIS W/ IV ONLY [id number] COMPLETE:06/19/20 18:06 ELVA 28065 Reason(s): A bdominal Pain CT OF THE [...] nodes: No adenopathy. Page [address] [facility] [address] [place] [address] PHONE: [phone] FAX: [phone] Name .................. : JUANITO Waddell Acct Number.................. : [id number] ROOM. ................. : TR-1A MR Number ................... : [id number] Stay type ............. : E/R Discharge Date......... ... : 06/19/20 Admit Date ......... : 06/19/20 Admit Phys .................... : COONEYNORM Date of ....... : 2000 Family Phys ................... : UNKNOWN CO Phone .................. : [phone] Age ................................ : 20 Film# .................. .:[id number] Sex ................................. : F Unsigned transcriptions are preliminary reports and do not represent a medical or legal document CT ABD & PELVIS W/ IV ONLY [id number] COMPLETE:06/19/20 18:06 ELVA [id number] Reason(s): Abdominal Pain Vessels. Normal abdominal aorta [...] APM Transcribe Initials: BENJAMIN , Transcribe Date: 11/05/20 23:06, Dictation Date: Copy for: ZOLTAN DINH via fax Copy for: EMERGENCY DEPT via modem Copy for: 710 MED REC DISCHARGED Page 2 of 2 Name Value Range Interpretation Code Description Data Shira rce(s) Supporting Document(s) ID Date Data Source [id number] 06/20/2020 10:30:00 AM EST [facility] [address] [place] [address] PHONE: [phone] FAX: [phone] Name .................. : JUANITO Waddell Acct Number.................. : [id number] ROOM. ................. : [facility]1A MR Number ................... : [id number] Stay type ............. : E/R Discharge Date......... ... : 06/19/20 Admit Date ......... : 06/19/20 Admit Phys .................... : COONEYNORM Date of ....... : 2000 Family Phys ................... : UNKNOWN CO Phone .................. : [phone] Age ................................ : 20 Film# .................. .:[id number] Sex ................................. : F Unsigned transcriptions are preliminary reports and do not represent a medical or legal document US TRANSVAGINAL(NON OB) [id number] COMPLETE:06/19/20 16:03 KNB 72310 (REASON FOR OBS: RLQ Pain TRANSVAGINAL PELVIC [...] By CONNOR MCALLISTER MD , 06/20/20 10:30, [facility] Transcribe Initials: BENJAMIN , Transcribe Date: 06/19/20 22:56, Dictation Date: Copy for: EMERGENCY DEPT via colrainm Copy for: 710 MED REC DISCHARGED Page 1 of 1 Name Value Range Interpretation Code Description Data Shira rce(s) Supporting Document(s) ID Date Data Source [id number] 06/20/2020 10:29:00 AM EST [facility] [address] [place] [address] PHONE: [phone] FAX: [phone] Name .................. : JUANITO Waddell Acct Number.................. : [id number] ROOM. ................. : TR-1A MR Number ................... : [id number] Stay type ............. : E/R Discharge Date......... ... : 06/19/20 Admit Date ......... : 06/19/20 Admit Phys .................... : COONEYNORM Date of ....... : 2000 Family Phys ................... : UNKNOWN CO Phone .................. : [phone] Age ................................ : 20 Film# .................. .:[id number] Sex ................................. : F Unsigned transcriptions are preliminary reports and do not represent a medical or legal document ABD LIMITED [id number] COMPLETE:06/19/20 16:03 [facility] [address] Reason(s): RLQ PAIN RIGHT LOWER QUADRANT ULTRASOUND: [...] By CONNOR MCALLISTER MD , 06/20/20 10:29, [facility] Transcribe Initials: BENJAMIN , Transcribe Date: 06/19/20 19:55, Dictation Date: Copy for: ZOLTAN DINH via fax Copy for: EMERGENCY DEPT via colrainm Copy for: 710 MED REC DISCHARGED Page 1 of 1 Name Value Range Interpretation Code Description Data Shira rce(s) Supporting Document(s) ID Date Data Source [id number] 06/20/2020 10:29:00 AM EST [facility] [address] [place] [address] PHONE: [phone] FAX: [phone] Name .................. : JUANITO Waddell Acct Number.................. : [id number] ROOM. ................. : -1A MR Number ................... : [id number] Stay type ............. : E/R Discharge Date......... ... : 06/19/20 Admit Date ......... : 06/19/20 Admit Phys .................... : COONEYNORM Date of ....... : 2000 Family Phys ................... : UNKNOWN CO Phone .................. : [phone] Age ................................ : 20 Film# .................. .:[id number] Sex ................................. : F Unsigned transcriptions are preliminary reports and do not represent a medical or legal document PELVIC [id number] COMPLETE:06/19/20 16:03 [facility] [address] Reason(s): Pelvic Pain PELVIC ULTRASOUND: HISTORY: Pelvic [...] By CONNOR MCALLISTER MD , 06/20/20 10:29, [facility] Transcribe Initials: DZ , Transcribe Date: 06/19/20 19:25, Dictation Date: Copy for: ZOLTAN DINH via fax Copy for: EMERGENCY DEPT via colrainm Copy for: 710 MED REC DISCHARGED Page 1 of 1 Name Value Range Interpretation Code Description Data Shira rce(s) Supporting Document(s) ID Date Data Source [id number] 06/20/2020 10:28:00 AM EST [facility] [address] [place] [address] PHONE: [phone] FAX: [phone] Name .................. : JUANITO Waddell Acct Number.................. : [id number] ROOM. ................. : TR-1A MR Number ................... : [id number] Stay type ............. : E/R Discharge Date......... ... : Admit Date ......... : 06/19/20 Admit Phys .................... : COONEYNORM Date of ....... : 2000 Family Phys ................... : UNKNOWN CO Phone .................. : [phone] Age ................................ : 20 Film# .................. .:[id number] Sex ................................. : F Unsigned transcriptions are preliminary reports and do not represent a medical or legal document RENAL [id number] COMPLETE:06/19/20 16:03 [facility] [address] Reason(s): Renal Colic/Flank BILATERAL RENAL ULTRASOUND: HISTORY: Renal colic and flank pain. FINDINGS: The right kidney measures 1.1 cm. The left kidney measures 11.4 cm. No hydronephrosis noted. Bilateral ureteral jets noted in the bladder. Cortical echotexture appears normal. No renal calculi noted. IMPRESSION: Unremarkable bilateral renal ultrasound. Electronically Reviewed and Signed By CONNOR MCALLISTER MD , 06/20/20 10:28, [facility] Transcribe Initials: BENJAMIN , Transcribe Date: 06/19/20 17:48, Dictation Date: Copy for: ZOLTAN DINH via fax Copy for: EMERGENCY DEPT via modem Copy for: 710 MED REC DISCHARGED Page 1 of 1 Name Value Range Interpretation Code Description Data Shira rce(s) Supporting Document(s) ID Date Data Source [id number] 06/19/2020 02:47:00 PM EST [facility] 1 OrderSheet [facility] Emergency Department [address] [place] [address] Phone #: ext- [phone] 06/19/2020 14:37 Patient: SCARLET SOLOMON Sex: F : 2000 Age: 20yWEIGHT:86.1 kg (S) HEIGHT:66 inches (S) BMI:30.7ALLERGIES: NoneCHIEF COMPLAINT: vomiting, diarrhea, abdominal pain, nauseaDIAGNOSIS: Abdominal painLAB ORDERSOrder Description Priority Entered Acknowledged InitialedCBC w Diff STAT 15:02 06/19/2020 15:03 Jesse Wells R.N.;CMP STAT 15:02 06/19/2020 15:03 Jesse Wells R.N.;Lipase STAT 15:02 06/19/2020 15:03 Jesse Wells R.N.;Urinalysis [...] Reason for Study: Renal Colic/Flank 2 OrderSheet [facility] Emergency Department [address] [place] [address] Phone #: [phone]- [phone] 06/19/2020 14:37 Patient: SCARLET SOLOMON Sex: F : 2000 Age: 20yUS Abdomen STAT 15:02 06/19/2020 Ack'd: 15:03 15:36 Russell,Limited Nasreen Marie R.N.(Oxygen?(No)) PA; R.NElder NOTES: Appy? Reason for Study: RLQ PAINCT Abd PEL W/ IV STAT 17:11 06/19/2020 Ack'd: 17:12 17:18 Russell,Contrast Only Nasreen Marie R.N.(Oxygen?(No)) PA; RElderNElder(IV?(Yes)) NOTES: [...] 15:03 Jesse Wells R.N. PA;[Electronically signed by aKrma Eddy R.N. (18:18 06/19/2020)][Electronically signed by Jesse Wilcox (21:42 06/19/2020)][Electronically locked by Karma Eddy R.N. (18:18 06/19/2020)] Name Value Range Interpretation Code Description Data Shira rce(s) Supporting Document(s) ID Date Data Source [id number] 06/19/2020 02:47:00 PM EST [facility] 1 Medication Reconciliation Report [facility] Emergency Department [address] [place] [address] Phone #: ext- [phone] 06/19/2020 14:37 Patient: [...] rce(s) Supporting Document(s) ID Date Data Source [id number] 06/19/2020 02:47:00 PM EST [facility] 1 Medication Administration Record [facility] Emergency Department [address] [place] [address] Phone #: ext- [phone] 06/19/2020 14:37 Patient: SCARLET SOLOMON Sex: F : 2000 Age: 20yWeight: 86.1 kgHeight/Length: 66 inBMI: 30.7ALLERGIES: None Date/Time Medication Administered Medication OrderedStart NS [IV] NS IV : Bolus 1000 mL, then 71744:07 06/19/2020 Dose: IV Fluids mL/Nasreen Hernandes R.N. Bolus: 1000 mL wide open---- Dispensed: [...] rce(s) Supporting Document(s) ID Date Data Source [id number] 06/19/2020 02:47:00 PM EST [facility] 1 General Instructions [facility] Emergency Department [address] [place] [address] Phone #: ext- [phone] 06/19/2020 14:37 Patient: [...] Appendicitis, Repeat Exam (Female) 2 General Instructions [facility] Emergency Department [address] [place], [place] [address] Phone #: ext- [phone] 06/19/2020 14:37 Patient: [...] diarrhea Not passing gas 3 General Instructions [facility] Emergency Department [address] [place] [address] Phone #: ext- [phone] 06/19/2020 14:37 Patient: [...] might be or have unexpected vaginal bleeding.Call 911Call [phone] right away if: You have trouble breathing. You become very confused or sleepy. You feel faint or lose consciousness. You have an usually fast heart rate. 4 General Instructions [facility] Emergency Department [address] [place] [address] Phone #: ext- [phone] 06/19/2020 14:37 Patient: SCARLET SOLOMON Sex: F : 2000 Age: 20y [id number] [employer]. [address] [place] [address], [place] [address]. All rights reserved. This information is not intended as asubstitute for professional medical care. Always follow your healthcare professional's instructions. You have been given the following additional information: Abdominal Pain, Possible Appendicitis, Repeat Exam (Female)(Rola ctronically signed by EDIL Moreno 06/19/2020 21:42) Name Value Range Interpretation Code Description Data Shira rce(s) Supporting Document(s) ID Date Data Source [id number] 06/19/2020 02:47:00 PM EST [facility] 1 Clinical Report - Nurses [facility] Emergency Department [address] [place] [address] Phone #: ext- [phone] 06/19/2020 14:37 Patient: [...] Uses depo 2 Clinical Report - Nurses [facility] Emergency Department [address] [place] [address] Phone #: ext- [phone] 06/19/2020 14:37 Patient: [...] PA notified. 3 Clinical Report - Nurses [facility] Emergency Department [address] [place] [address] Phone #: ext- [phone] 06/19/2020 14:37 Patient: SACRLET SOLOMON Sex: F : 2000 Age: 20y--14:58 [...] to radiology by wheelchair with mask and residential appliance repair technician. --15: Miri Whitehead R.N.Patient returned from sonogram by wheelchair with residential appliance repair technician. --15:56 06/19/20 Nasreen Wells R.N.15:56 06/19/20. [...] if they 4 Clinical Report - Nurses [facility] Emergency Department [address] [place] [address] Phone #: ext- [phone] 06/19/2020 14:37 Patient: [...] entry - 17:23 06/19/20. Patient transported to [place] by wheelchair with residential appliance repair technician. --17:33 06/19/20Nasreen Wells R.N.Patient returned from CT by wheelchair with residential appliance repair technician. --17:33 06/19/20 Nasreen Wells R.N.18:03 06/19/20. BP: 132/70. MAP: 90. HR: 85. RR: 16. O2 saturation: 99%. --18:03 06/19/20 Josette Duff ER Ency340:16 06/19/2020 Site #1 removed upon discharge. Pressu re dressing applied. --18:16 06/19/20 Karma Eddy R.N. 5 Clinical Report - Nurses [facility] Emergency Department [address] [place] [address] Phone #: ext- [phone] 06/19/2020 14:37 Patient: [...] rce(s) Supporting Document(s) ID Date Data Source [id number] 06/19/2020 02:47:00 PM [facility] 1 Clinical Report - Physicians/Mid Levels [facility] Emergency Department [address] [place] [address] Phone #: ext- [phone] 06/19/2020 14:37 Patient: [...] normal. 2 Clinical Report - Physicians/Mid Levels [facility] Emergency Department [address] [place] [address] Phone #: ext- [phone] 06/19/2020 14:37 Patient: [...] exam. The exam was performed by a transport tank technician. The study wasinterpreted by the ra [...] TRANSVAGINAL (NON OB): (STELLA: 06/19/2020 15:44) ( RigRcvd 06/19/2020 16:03) In Progress US TRANSVAGINAL (Non OB) REASON FOR OBS: RLQ Pain TRANSPORTATION: W IV? N O2? N STATUS: SIGNED WAIVER ISOLATION N CBC w Diff: (STELLA: 06/19/2020 15:01) ( [facility] 06/19/2020 15:36) Final results Test Result Flag [...] 7.0) 3 Clinical Report - Physicians/Mid Levels [facility] Emergency Department [address] [place] [address] Phone #: ext- [phone] 06/19/2020 14:37 Patient: [...] Male GFR Interprentation 20-49 yrs >60 mL/min Wmgnqa52-35 yrs >56 mL/min Normal 60-69 yrs >49 mL/min Normal 70-79yrs>42 mL/min Normal 80 and above >35 mL/min Normal Female GFRInterpretation 20-39 yrs >60 mL/min Normal 40-49 yrs >58 mL/minNormal 50-59 yrs >51 mL/min Normal 60-69 yrs >45 mL/min Uovpko20-27 yrs >39 mL/min Normal 80 and above >32 mL/min NormalLipase: (STELLA: 06/19/2020 15:01) ( MsgRcvd 06/19/2020 15:47) Final results Test Result Flag Units (Reference) LIPASE 33 U/L (13 - 60)Urinalysis: (STELLA: 06/19/2020 14:50) ( MsgRcvd 06/19/2020 15:37) Final results Test Result Flag Units (Reference) URINALYSIS URINALYSIS SOURCE R COLOR yellow (NORMAL: Yello CLARITY clear (NORMAL: Clear 4 Clinical Report - Physicians/Mid Levels [facility] Emergency Department [address] [place] [address] Phone #: ext- [phone] 06/19/2020 14:37 Patient: [...] (NORMAL: NONELactic Acid: (STELLA: 06/19/2020 15:01) ( [facility] 06/19/2020 15:29) Final results Test Result Flag Units (Reference) LACTIC ACID 1.6 MMOL/L (0.2 - 2.2) Pelvis: (STELLA: 06/19/2020 15:02) ( [facility] 06/19/2020 16:03) In ProgressUS PELVICReason(s): Pelvic PainTRANSPORTATION: WC IV? O2? Oxygen?(No) Room: [facility] Renal: (STELLA: 06/19/2020 15:02) ( [facility] 06/19/2020 17:49) In ProgressUS RENALReason(s): Renal Colic/FlankTRANSPORTATION: WC IV? O2? Oxygen?(No) Room: ED Exam [facility]NAL [facility] [address] [place] [address] PHONE: [phone] FAX: [phone] Name .................. : JUANITO Waddell Acct Number.................. : [id number] ROOM. ................. : TR-1A MR Number ................... : [id number] Stay type ............. : E/R Discharge Date......... ... : Admit Date ......... : 1 08/19/19 Admit Phys .................... : COONEYNORM Date of ....... : 2000 Family Phys ................... : UNKNOWN CO Phone .................. : [phone] Age ................................ : 20 Film# .................. .:[id number] Sex ................................. : F Unsigned transcriptions are preliminary reports and do not represent a medical or legal document RENAL [id number] COMPLETE:06/19/20 16:03 [facility] [address] Reason(s): Renal Colic/Flank BILATERAL RENAL ULTRASOUND: HISTORY: Renal colic and flank pain. FINDINGS: The right kidney measures 1.1 cm. The left kidney measures 11.4 cm. No hydronephrosis noted. 5 Clinical Rep ort - Physicians/Mid Levels [facility] Emergency Department [address] [place] [address] Phone #: ext- [phone] 06/19/2020 14:37 Patient: SCARLET SOLOMON Sex: F : 2000 Age: 20y Bilateral ureteral jets noted in the bladder. Cortical echotexture appears normal. No renal calculi noted. IMPRESSION: Unremarkable bilateral renal ultrasound. Electronically Reviewed and Signed By DCTNAME SIGNDATE, MARQUISE Transcribe Initials: BENJAMIN , Transcribe Date: 06/19/20 [...] observation and results of tests back. (D/W Davie he recommended CT again, CT is negative, [...] fluids. 6 Clinical Report - Physicians/Mid Levels [facility] Emergency Department [address] [place] [address] Phone #: ext- [phone] 06/19/2020 14:37 Patient: [...] instructions verbalized by patient.(Electronically signed by EDIL Moreno 06/19/2020 21:42) Name Value Range Interpretation Code Description Data Shira rce(s) Supporting Document(s) ID Date Data Source [id number] 06/19/2020 03:49:00 PM EST [facility] Name Value Range Interpretation Code Description Data Shira rce(s) Supporting Document(s) COMPREHENSIVE METABOLIC PANEL [facility] COMPREHENSIVE METABOLIC PANEL Sodium [Moles/volume] in Serum or Plasma 139 mEq/L 134 - 153 [facility] Potassium [Moles/volume] in Serum or Plasma 4.2 mEq/L 3.6 - 5.0 [facility] Chloride [Moles/volume] in Serum or Plasma 102 mEq/L 98 - 107 [facility] Carbon dioxide, total [Moles/volume] in Serum or Plasma 30 MEQ/L 22 - 30 [facility] Glucose [Mass/volume] in Serum or Plasma 118 MG/DL 65 - 110 H [facility] BUN 10 MG/DL 7 - 21 [facility] Creatinine [Mass/volume] in Serum or Plasma 0.6 MG/DL 0.7 - 1.5 L [facility] BUN/CREAT 17 8 - 27 [facility] Protein [Mass/volume] in Serum or Plasma 7.7 G/DL 6.3 - 8.2 [facility] Albumin [Mass/volume] in Serum or Plasma 4.6 G/DL 3.9 - 5.0 [facility] Globulin [Mass/volume] in Serum by calculation 3.1 GM/DL 2.4 - 3.2 [facility] A/G RATIO 1.5 0.8 - 2.0 [facility] Calcium [Mass/volume] in Serum or Plasma 9.6 MG/DL 8.4 - 10.2 [facility] Bilirubin.total [Mass/volume] in Serum or Plasma 0.7 MG/DL 0.2 - 1.3 [facility] Alkaline phosphatase [Enzymatic activity/volume] in Serum or Plasma 101 U/L 38 - 126 [facility] Aspartate aminotransferase [Enzymatic activity/volume] in Serum or Plasma 25 U/L 5 - 40 [facility] Alanine aminotransferase [Enzymatic activity/volume] in Seru m or Plasma 21 U/L 7 - 56 [facility] Anion gap 3 in Serum or Plasma 7.0 mmol/L 8.0 - 16.0 L [facility] AGE 20 yrs [facility] Hospit al NON-AA GFR >60 mL/min [facility] Hosp ital AFR AMER GFR >60 mL/min [facility] Ho spital Male GFR In terprentation [...] >32 mL/min Normal ID Date Data Source [id number] 06/19/2020 03:47:00 PM [facility] Name Value Range Interpretation Code Description Data Shira rce(s) Supporting Document(s) Lipase [Enzymatic activity/volume] in Serum or Plasma 33 U/L 13 - 60 [facility] ID Date Data Source [id number] 06/19/2020 03:36:00 PM [facility] Name Value Range Interpretation Code Description Data Shira rce(s) Supporting Document(s) CBC W/AUTOMATED DIFF [facility] COMPLETE BLOOD COUNT Leukocytes [#/volume] in Blood by Automated count 10.2 10^3/uL 4.2 - 11.0 [facility] Erythrocytes [#/volume] in Blood by Automated count 4.88 10^6/uL 4. 20 - 5.40 [facility] Hemoglobin [Mass/volume] in Blood 14.8 g/dL 12.0 - 16.0 [facility] Hematocrit [Volume Fraction] of Blood by Automated count 43.2 % 3 7.0 - 47.0 [facility] Erythrocyte mean corpuscular volume [Entitic volume] by Auto mated count 88.5 fL 81.0 - 101 [facility] Erythrocyte mean corpuscular hemoglobin [Entitic mass] by Automated count 30.3 pg 27.0 - 34.0 [facility] Erythrocyte mean corpuscular hemoglobin concentration [Mass/volume] by Automated count 34.3 g/dL 31.0 - 36.0 [facility] Erythrocyte distribution width [Ratio] by Automated count 11.5 % 11.5 - 14.5 [facility] Platelets [#/volume] in Blood by Automated count 391 10^3/uL 150 - 45 0 [facility] Platelet mean volume [Entitic volume] in Blood by Automated count 8.5 fL 7.4 - 10.4 [facility] Neutrophils/100 leukocytes in Blood by Automated count 69.5 % 37. 0 - 80.0 [facility] Lymphocytes/100 leukocytes in Blood by Manual count 22.3 % 25.0 - 40.0 L [facility] Monocytes/100 leukocytes in Blood by Automated count 6.8 % 3.0 - 8.0 [facility] Eosinophils/100 leukocytes in Blood by Automated count 0.6 % 0.0 - 7.0 [facility] Basophils/100 leukocytes in Blood by Automated count 0.3 % 0.0 - 2.5 [facility] %IG 0.5 % 0.0 - 0.0 H [facility] al %NRBC 0.0 % 0.0 - 0.0 [facility] al Neutrophils [#/volume] in Blood by Automated count 7.10 10^3/uL 2.00 - 6.90 H [facility] Lymphocytes [#/volume] in Blood by Automated count 2.28 10^3/uL 0.60 - 3.40 [facility] Monocytes [#/volume] in Blood by Automated count 0.69 10^3/uL 0.00 - 0.90 [facility] Eosinophils [#/volume] in Blood by Automated count 0.06 10^3/uL 0.00 - 0.70 [facility] Basophils [#/volume] in Blood by Automated count 0.03 10^3/uL 0.00 - 0.20 [facility] #IG 0.05 10^3/uL 0.00 - 0.10 [facility] H ospital #NRBC 0.00 10^3/uL 0.00 - 0.00 [facility] ospital MANUAL DIFF NOT INDICATED [facility] RBC MORPH NOT INDICATED [facility] Ho spital ID Date Data Source [id number] 06/19/2020 03:29:00 PM EST [facility] Name Value Range Interpretation Code Description Data Shira rce(s) Supporting Document(s) Lactate [Moles/volume] in Serum or Plasma 1.6 MMOL/L 0.2 - 2.2 [facility] ID Date Data Source [id number] 06/19/2020 03:36:00 PM [facility] Name Value Range Interpretation Code Description Data Shira rce(s) Supporting Document(s) [facility] COLOR yellow NORMAL: Yellow [facility] ospital CLARITY clear NORMAL: Clear [facility] Ho spital Specific gravity of Urine by Test strip 1.015 1.001 - 1.030 [facility] pH 8 5 - 9 [facility] Glucose [Mass/volume] in Urine by Test strip NORM [facility] Bilirubin.total [Presence] in Urine by Test strip NEG NORMAL: Negative [facility] Ketones [Presence] in Urine by Test strip NEG NORMAL: Negative [facility] Protein [Mass/volume] in Urine by Test strip NEG [facility]AL[facility] Nitrite [Presence] in Urine by Test strip NEG NORMAL: Negative [facility] BLOOD 25 NORMAL: Negative A [facility] Leukocyte esterase [Presence] in Urine by Test strip NEG MAURIZIO L: Negative [facility] Urobilinogen [Mass/volume] in Urine by Test strip NOR less rocky n 1.0 mg/dL [facility] MICROSCOPIC See Below [facility] WBC 1 - 3 NORMAL: NONE SEEN [facility] Erythrocytes [#/volume] in Urine by Test strip 3 - 5 NORMAL: NON E SEEN [facility] EPITHELIAL MODERATE NORMAL: NONE SEEN A [facility] Bacteria [Presence] in Urine sediment by Light microscopy 1+ SMALL NORMAL: NONE SEEN [facility] ID Date Data Source [id number] 06/16/2020 10:19:00 PM EST [facility] 1 OrderSheet [facility] Emergency Department [address] [place] [address] Phone #: [phone]- [phone] 06/16/2020 22:13 Patient: SCARLET SOLOMON Sex: F : 2000 Age: 20yWEIGHT:86.1 kg (S) HEIGHT:66 inches (S) BMI:30.7ALLERGIES: NoneCHIEF COMPLAINT: abdominal pain, nauseaDIAGNOSIS: Pyelonephritis, Urinary tract infectious diseaseLAB ORDERSOrder Description Priority Entered Acknowledged InitialedCBC w Diff STAT 22:37 06/16/2020 23:03 Charley Miriwicho Hernandez, Benedict R.N. M.D.;CMP STAT 22:37 06/16/2020 23:03 Charley Miri David, Benedict R.N. M.D.;Lipase STAT 22:37 06/16/2020 23:03 Charley Miri David, Benedict R.N. M.D.;Urinalysis (Clean STAT 22:37 06/16/2020 22:40 Charley TheaCatch) Benedict Hernandez R.N. M.D.;Beta-HCG, Qual STAT 22:37 06/16/2020 23:03 Charley TheaSerum David, Benedict R.N. M.D.;Lactic Acid STAT 22:37 06/16/2020 23:03 Whitehead, Miri David, Benedict R.N. M.D.;Culture, Urine STAT 23:27 06/16/2020 23:28 Miri Whitehead(Urine, Clean David, Benedict R.N.Catch) Soumya;DIAGNOSTIC STUDY ORDERSOrder Description Priority Entered Acknowledged InitialedCT Abd PEL W/ IV STAT 23:30 06/16/2020 00:12 06/17/2020Contrast Only Benedict Hernandez Laura(Oxygen?(No)) Soumya; R.N.(IV?(Yes)) Reason for Study: RLQ, rt abdomen pain, infected urineMEDICATION/IV/DRIP/FLUID ORDERS 2 OrderSheet [facility] Emergency Department [address] [place] [address] Phone #: ext- [phone] 06/16/2020 22:13 Patient: SCARLET SOLOMON Sex: F : 2000 Age: 20yOrder Description Priority Entered Acknowledged InitialedNS IV 1000 mL 22:38 06/16/2020 22:58 Polo,Bolus: : Bolus 1000 Terririn, Benedict Quicka R.N.mL (X1) KarolynDElder;Toradol 15 mg IVP 22:38 06/16/2020 22:58 Polo,X1 dose: 15 mg David, Benedict Beth R.N.(NOW x1) M.D.;Zofran 4 mg IVP X 1 22:38 06/16/2020 22:57 Beckyarakendrick,dose: 4 mg (NOW Turrin, Benedict Beth R.N.x1) M.D.;cefTRIAXone 23:27 06/16/2020 23:37 Whitehead, Miri(1gm/50ml) IVPB Terririn, Benedict R.N.1000 mg with M.D.;Dextrose 50 mlspike bag (D5W)levoFLOXacin PO 01:02 06/17/2020 01:25 Whitehead, Jydd459 mg Turrin, Benedict R.N. M.DElder;Pyridium PO 200 01:03 06/17/2020 01:25 Whitehead, Theamg TerriBenedict tom R.N., M.D.;GENERAL ORDER SOrder Description Priority Entered Acknowledged InitialedNPO 22:37 06/16/2020 22:40 Miri Whitehead Riccardo R.N. M.D.;Saline Lock 22:37 06/16/2020 23:03 Miri Whitehead Riccardo R.N. M.D.;[Electronically signed by Miri Whitehead R.N. (:28 06/17/2020)][Electronically signed by Benedict Hernandez M.D. (04:42 06/17/2020)][Electronically locked by Miri Whitehead R.N. (:06/17/2020)] Name Value Range Interpretation Code Description Data Shira rce(s) Supporting Document(s) ID Date Data Source [id number] 06/16/2020 10:19:00 PM [facility] 1 Medication Reconciliation Report [facility] Emergency Department [address] [place] [address] Phone #: ext- [phone] 06/16/2020 22:13 Patient: [...] 06/17/2020 1:15:00 AM 2 Medication Reconciliation Report [facility] Emergency Department [address] [place] [address] Phone #: ext- [phone] 06/16/2020 22:13 Patient: SCARLET SOLOMON Sex: F : 2000 Age: 20yThe following Medications were prescribed to the patient:Cipro 500 mg tablet Take 1 tablet twice a day for 10 days -- Dispense 20 tablet. Refills: 0. Substitutionpermitted.[facility] [id number] ; [place] [address]. .ibuprofen 600 mg tablet Take 1 tablet four times a day as needed for pain for 7 days -- Dispense 28tablet. Refills: 0. Substitution permitted.[facility] [phone] ; [place] [address]. .Pyridium 100 mg tablet Take 1 tablet three times a day for 5 days -- Dispense 15 tablet. Refills: 0.Substitution permitted.[facility] [phone] ; [place] [address]. . -- Benedict Hernandez M.D. Name Value Range Interpretation Code Description Data Shira rce(s) Supporting Document(s) ID Date Data Source [id number] 06/16/2020 10:19:00 PM [facility] 1 Medication Administration Record [facility] Emergency Department [address] [place] [address] Phone #: ext- [phone] 06/16/2020 22:13 Patient: SCARLET SOLOMON Sex: F : 2000 Age: 20yWeight: 86.1 kgHeight/Length: 66 inBMI: 30.7ALLERGIES: None Date/Time Medication Administered Medication OrderedStart SODIUM CHLORIDE [IV] NS IV 1000 mL Bolus: : Bolus 186439:[id number] 06/16/2020 Dose: IV Fluids mL (X1)Beth Cuellar, R.N. Bolus: 1000 mL wide open---- Dispensed: 1000 mL bagStop Site: #1 left AC23:58 06/16/2020Miri Whitehead R.NElderGiven TORADOL [IVP] (KETOROLAC Toradol 15 mg IVP X1 dose: 15 mg22:57 06/16/2020 TROMETHAMINE) (NOW x1)Beth Cuellar, R.N. Dose: 15 mg IVP Site: #1 left ACGiven ZOFRAN [IVP] (ONDANSETRON HCL) Zofran 4 mg IVP X 1 dose: 4 mg22:57 06/16/2020 Dose: 4 mg IVP (NOW x1)Beth Cuellar, R.N. Site: #1 left ACStart CEFTRIAXONE (1GM/50ML) [IVPB] cefTRIAXone (1gm/50ml) IVPB23:37 06/16/2020 Dose: 1 gm IVPB 1000 mg with Dextrose 50 ml spikeMiri Whitehead R.N. Rate: 100 mL/hr over 30 minute(s) bag [...] rce(s) Supporting Document(s) ID Date Data Source [id number] 06/16/2020 10:19:00 PM EST [facility] 1 General Instructions [facility] Emergency Department [address] [place] [address] Phone #: ext- [phone] 06/16/2020 22:13 Patient: [...] Dispense 20 tablet. Refills: 0. Substitutionpermitted.Pharmacy - [facility] [phone] ; [place] [address]. .ibuprofen 600 mg tablet Take 1 tablet four times a day as needed for pain for 7 days -- Dispense 28tablet. Refills: 0. Substitution permitted.Pharmacy - [facility] [phone] ; [place] [address]. .Pyridium 100 mg tablet Take 1 tablet three times a da y for 5 days -- Dispense 15 tablet. Refills: 0.Substitution permitted. 2 General Instructions [facility] Emergency Department [address] [place] [address] Phone #: ext- [phone] 06/16/2020 22:13 [id number] Sex: F : 2000 Age: 20yPharmacy - [facility] [phone] ; [place] [address]. .Follow-up:Return to the emergency department as needed. [...] for this problem include: 3 General Instructions [facility] Emergency Department [address] [place] [address] Phone #: ext- [phone] 06/16/2020 22:13 Patient: [...] taking blood thinners.Home care 4 General Instructions [facility] Emergency Department [address] [place] [address] Phone #: ext- [phone] 06/16/2020 22:13 Patient: [facility] SOLOMON [id number] Sex: F : 2000 Age: 20yThe following [...] find out the results. 5 General Instructions [facility] Emergency Department [address] [place] [address] Phone #: ext- [phone] 06/16/2020 22:13 Patient: SCARLET SOLOMON Sex: F : 2000 Age: 20yIf you had an X-ray, CT scan, or other diagnostic test, you will be notified of any new findings thatmay affect your care.Call [phone] if any of the following occur: Trouble [...] when crying, sunken eyes, or dry mouth [phone] [employer]. [address] [place] [address], [place] [address]. All rights reserved. This information is not intended as asubstitute for professional medical care. Always follow your healthcare professional's instructions.Fever Control (Adult)A fever is a normal reaction of your body to an illness. The temperature itself usually isn't harmful. Itactually helps your body fight infections. You don't need to treat a fever unless you feel veryuncomfortable. 6 General Instructions [facility] Emergency Department [address] [place] [address] Phone #: ext- [phone] 06/16/2020 22:13 Patient: SCARLET SOLOMON Sex: F : 2000 [facility] careFollow these tips to take care of [...] any of these occur: 7 General Instructions [facility] Emergency Department [address] [place] [address] Phone #: ext- [phone] 06/16/2020 22:13 Patient: [...] place where infectious diseases arecommon. 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 This usually goes away without aproblem. But, some places have more serious diseases. Fever with certain other symptoms maymean you have a serious illness. Symptoms to watch for include diarrhea, skin rashes, insect bites,and skin boils, or infections. Your provider may ask you: What you did on your trip 8 General Instructions [facility] Emergency Department [address] [place] [address] Phone #: ext- [phone] 06/16/2020 22:13 Patient: SCARLET SOLOMON Sex: F : 2000 Age: 20y How long you were there Where you stayed (hotel, round [place] house, tent) What you ate and drank If you were bitten by insects or other bugs If you swam in freshwater If you had sex or got a tattoo or piercing while you were thereCheck the [facility] to get more information about specific infectious diseases in the areas you havetraveled. [phone] [employer]. [address] [place] [address]. All rights reserved. This information is not intended as asubstitute for professional medical care. Always follow your healthcare professional's instructions. You have been given the following additional information: Pyelonephritis, Female (Adult) Fever Control (Adult) Return to work in three days.(Electronically signed by Benedict Hernandez M.D. 06/17/2020 04:42) Name Value Range Interpretation Code Description Data Shira rce(s) Supporting Document(s) ID Date Data Source [id number] 06/16/2020 10:19:00 PM EST [facility] 1 Clinical Report - Nurses [facility] Emergency Department [address] [place] [address] Phone #: ext- [phone] 06/16/2020 22:13 Patient: SCARLET SOLOMON Sex: F : 2000 Age: 20yTRIAGEArrived by private vehicle. Historian: patient.Acuity: LEVEL 3.Chief Complaint: FEVER, SORE THROAT, COUGH, NAUSEA, VOMITING, DIARRHEA, ABDOMINALPAIN and BACK PAIN.Alert.Onset. 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 Seen within the last 24 hours in a clinic; labs done; treatment- other medication. ([facility] [place] [facility] [...] q6h as needed. --22:06/16/20 Mary Lemon R.N.AllergiesNone. --22:06/16/20 Mary Lemon R.N.HistoryPAST MEDICAL HX: Immunizations: up-to-date. Last normal menstrual period- 3 months ago, patient onnexplanon. Denies current .SOCIAL HX: Never smoker. No alcohol use or drug use. She was offered HIV testing but declined andhepatitis C testing but declined. She has not traveled outside the [place] 2 Clinical Report - Nurses [facility] Emergency Department [address] [place] [address] Phone #: ext- [phone] 06/16/2020 22:13 Patient: [...] Cuellar R.N. 3 Clinical Report - Nurses [facility] [place] [address] Phone #: ext- [phone] 06/16/2020 22:13 Patient: [...] Discharge instructions 4 Clinical Report - Nurses [facility] Emergency Department [address] [place] [address] Phone #: ext- [phone] 06/16/2020 22:13 Patient: SCARLET SOLOMON Sex: F : 2000 Age: 20y provided and reviewed with the patient. Reviewed medication(s) side effects, precautions, dosing and course information. Prescription(s) sent electronically to pharmacy. Work note given. Patient verbalized understanding. Written instructions provided in Russian. The patient was discharged by the physician. She was discharged home. She left ambulatory and via private vehicle. Patient driving. --01:06/17/20 Miri Whitehead R.N. 01:20 06/17/20. BP: 129/64. MAP: 85. HR: 81. RR: 16. O2 saturation: 99% on room air. Temp: deferred. Pain level now: 09/24. --01:06/17/20 Miri Whitehead R.N. 01:20 06/17/2020 Site #1 removed upon discharge. Pressure dressing and bandage applied. --:06/17/20 Miri Whitehead R.N.Locked/Released at 06/17/2020 01:28 by Miri Whitehead R.N. Name Value Range Interpretation Code Description Data Shira rce(s) Supporting Document(s) ID Date Data Source [id number] 06/16/2020 10:19:00 PM [facility] 1 Clinical Report - Physicians/Mid Levels [facility] Emergency Department [address] [place] [address] Phone #: ext- [phone] 06/16/2020 22:13 Patient: [...] Nephropathy. 2 Clinical Report - Physicians/Mid Levels [facility] Emergency Department [address] [place] [address] Phone #: ext- [phone] 06/16/2020 22:13 Patient: SCARLET SOLOMON Sex: F [...] EST 3 Clinical Report - Physicians/Mid Levels [facility] Emergency Department [address] [place] [address] Phone #: ext- [phone] 06/16/2020 22:13 Patient: SCARLET SOLOMON Sex: F : 2000 Age: 20yMRN: [id number] STUDY RECEIVED:Jun 17, 2020 12:08:14 AM ESTGENDER: F MODALITY TYPE:CT\\SRDOB: [birth year] DESCRIPTION: CT ABD PELVIS W/ IV ONLYINSTITUTION: [facility] ORDERING PHYSICIAN: Benedict JonesION #: [id number] HISTORY: RLQ, rt abdomen pain, infected urine. Accumulated DLP-1086.3 mGy*cm,Estimated DLP-1079.3 mGy*cm. QLE234, 75mL, A0S01 7DA, 01/04. Neg Beta. BUN-13, Createnine-.7, GFR>60. Time Out performed. Correct patient with 2 identifiers, type and amount of contrast used, correct bodypart and side all verified prior to examination. - RLB (Hx) / SAGITTAL (DICOM Hx)CT Abdomen/PelvisHistory:RLQ, rt abdomen pain, infected urine. Accumulated DLP- 1086.3 mGy*cm, Estimated DLP-1079.3mGy*cm. VGC063, 75mL, [id number], 01/04. Neg Beta. BUN-13, Createnine-.7, GFR >60. Time Outperformed. Correct patient with 2 identifiers, type and amount of contrast used, correct body part and sideall verified prior to examination. - RLB (Hx) / SAGITTAL (DICOM Hx)Technique:CT ABD PELVIS W/ IV ONLYDose length product (mGy-cm): Not providedReformations: NoneContrast: With; ISO 370, 75mL.Comparison:CT\\SC\\SR - CT ABD PELV W/O ORAL W/O [...] are grossly normal. 4 Clinical Report - Physicians/[facility] Emergency Department [address] [place] [address] Phone #: ext- [phone] 06/16/2020 22:13 Patient: [...] 17, 2020 12:56:41 AM EST by:Jack Piña, [place] [employer]. Study type: abdomen and [...] CT ABD //T// PELVIS W/ IV ONLY [facility] [address] [place] [address] ---------NAME--------- NUMBER SEX AGE ADMIT DISC. XRAY# F/C TYPE JUANITO Waddell [id number] 06/16/[id number] SB4 E/R DATE OF : 2000 M/R# [id number] PH#: [phone] TR-06 LOCATION: EMERGENCY DEPT TRANSCRIBED: 06/17/[address] ABD //T// PELVIS W/ IV ONLY [id number] COMPLETED:06/17/20 57 axel 06758 Reason(s): RLQ, rt abdomen pain, infected urine PHYSICIAN: DAVID GRACE R A D I O L O G Y R E P O R T PATIENT HISTORY: RLQ, rt abdomen pain, infected urine. Accumulated DLP-1086.3 mGy*cm, Estimated DLP-1079.3 mGy*cm. JEB225, 75mL, [id number], 01/04. Neg Beta. BUN-13, Createnine-.7, GFR >60. Time Out performed. Correct patient with 2 identifiers, type and amount of contrast used, correct body part and side all verified prior to examination. - RLB / SAGITTAL (DICOM Hx) CT Abdomen/Pelvis History: RLQ, rt abdomen pain, infected urine. Accumulated DLP-1086.3 mGy*cm, Estimated DLP-1079.3 mGy*cm. ZNO128, 75mL, [id number], 01/04. Neg Beta. BUN-13, 5 Clinical Report - Physicians/Mid Levels [facility] Emergency Department [address] [place] [address] Phone #: ext- [phone] 06/16/2020 22:13 Patient: [...] 16.0) 6 Clinical Report - Physicians/Mid Levels [facility] Emergency Department [address] [place] [address] Phone #: ext- [phone] 06/16/2020 22:13 Patient: [...] Male GFR Interprentation 20-49 yrs >60 mL/min Mimiti14-34 yrs >56 mL/min Normal 60-69 yrs >49 mL/min Normal 70-79yrs>42 mL/min Normal 80 and above >35 mL/min Normal Female GFRInterpretation 20-39 yrs >60 mL/min Normal 40-49 yrs >58 mL/minNormal 50-59 yrs >51 mL/min Normal 60-69 yrs >45 mL/min Ohablx69-12 yrs >39 mL/min Normal 80 and above >32 mL/min NormalLipase: (STELLA: 06/16/2020 22:50) ( MsgRcvd 06/16/2020 23:21) Final results Test Result Flag Units (Reference) 7 Clinical Report - Physicians/Mid Levels [facility] Emergency Department [address] [place] [address] Phone #: ext- [phone] 06/16/2020 22:13 Patient: [...] NEGATIVE (NORMAL: NEGAT { KIT LOT # [id number] ){ KIT EXP DATE 05-20-21 ){ PROCEDURAL CONTROL VALID ) Lactic Acid: (STELLA: 06/16/2020 22:50) ( [facility] 06/16/2020 23:09) Final results Test Result Flag [...] no 8 Clinical Report - Physicians/Mid Levels [facility] Emergency Department [address] [place] [address] Phone #: ext- [phone] 06/16/2020 22:13 Patient: SCARLET SOLOMON Sex: F : 2000 Age: 20y inflammation, [...] Substitution 9 Clinical Report - Physicians/Mid Levels [facility] Emergency Department [address] [place] [address] Phone #: ext- [phone] 06/16/2020 22:13 Patient: SCARLET SOLOMON [facility]#: [id number] Sex: F : 2000 Age: 20y permitted. [facility] [id number] ; [place] [address]. . ibuprofen 600 mg tablet Take 1 tablet four times a day as needed for pain for 7 days -- Dispense 28 tablet. Refills: 0. Substitution permitted. [facility] [phone] ; [place] [address]. Phone: . Pyridium 100 mg tablet Take 1 tablet three times a day for 5 days -- Dispense 15 tablet. Refills: 0. Substitution permitted. [facility] [phone] ; [place] [address]. . Follow-up: Return to the emergency department [...] rce(s) Supporting Document(s) ID Date Data Source [id number] 06/17/2020 12:56:00 AM EST [facility] [address] [facility] [address] ---------NAME--------- NUMBER SEX AGE ADMIT DISC. XRAY# F/C TYPE JUANITO Waddell [id number] 06/16/[id number] SB4 E/R DATE OF : 2000 M/R# [id number] #: [phone] TR-06 LOCATION: EMERGENCY DEPT TRANSCRIBED: 06/17/[address] ABD //T// PELVIS W/ IV ONLY [id number] COMPLETED:06/17/20 57 axel 76862 Reason(s): RLQ, rt abdomen pain, infected urine PHYSICIAN: DAVID GRACE == R A D I O L O G Y R E P O R T PATIENT HISTORY:RLQ, rt abdomen pain, infected urine. Accumulated DLP-1086.3 mGy*cm, EstimatedDLP-1079.3 mGy*cm. NCS329, 75mL, [id number], 01/04. Neg Beta. BUN-13,Createnine-.7, GFR >60.Time Out performed. Correct patient with 2 identifiers, type and amount ofcontrast used, correct body part and side all verified prior to examination. -RLB / SAGITTAL (DICOM Hx)CT Abdomen/PelvisHistory:RLQ, rt abdomen pain, infected urine. Accumulated DLP-1086.3 mGy*cm, EstimatedDLP-1079.3 mGy*cm. RTS082, 75mL, A6D080BI, 01/04. Neg Beta. BUN-13,Createnine-.7, GFR >60. Time [...] rce(s) Supporting Document(s) ID Date Data Source [id number] 06/20/2020 11:44:00 AM EST [facility] Name Value Range Interpretation Code Description Data Shira rce(s) Supporting Document(s) CULTURE URINE [facility] spital _CULTURE URINE_$$[id number]$$[id number]$$[id number]$$211457$$277616$$543443$$415641$$243315$$682549$$ 968924$$889799$$415480$$169730$$121395$$858094$$522527$$900112$$136670$$864665$$ 617171$$807794$$859623$$209163$$762915$$768313$$329551$$120096 -- Continued on next page --Patient: JUANITO Waddell Order: [id number] Page 2Culture: CULTURE URINE Status: Final ==== -- Continued on next page --Patient: JUANITO NOVAK F Order: [id number] Page 2Culture: CULTURE URINE Status: Prelim =====$$[id number]$$[id number] DATE/TIME: 06/20/2020 11:06Culture: CULTURE URINE Status: FinalUrine Culture,Comprehensive: N1Ziirn urogenital flora25,000-50,000 colony forming units per mL Previous result entered on 06/19/2020 02:03 ET Specimen has been received and testing has been initiated.P1 Test performed by: [facility] Michael GUAMAN #: [id number] [address] [place] [id number] [facility] [address]Wetcdfk Director : Keith Hollis MD NPI #:Digital Archivist : 06/19/20.0712.XMT.SENT REF 06/20/20.1144.XMT.SENT REF ID Date Data Source [id number] 06/16/2020 11:24:00 PM EST [facility] Name Value Range Interpretation Code Description Data Shira rce(s) Supporting Document(s) HCG SERUM QUAL NEGATIVE NORMAL: NEGATIVE [facility] HCG SERUM QL REENTER NEGATIVE NORMAL: NEGATIVE [facility] { KIT LOT # [id number] ){ KIT EXP DATE 05-20-21 ){ PROCEDURAL CONTROL VALID ) ID Date Data Source [id number] 06/16/2020 11:21:00 PM EST [facility] Name Value Range Interpretation Code Description Data Shira rce(s) Supporting Document(s) Lipase [Enzymatic activity/volume] in Serum or Plasma 30 U/L 13 - 60 [facility] ID Date Data Source [id number] 06/16/2020 11:21:00 PM [facility] Name Value Range Interpretation Code Description Data Shira rce(s) Supporting Document(s) COMPREHENSIVE METABOLIC PANEL [facility] COMPREHENSIVE METABOLIC PANEL Sodium [Moles/volume] in Serum or Plasma 135 mEq/L 134 - 153 [facility] Potassium [Moles/volume] in Serum or Plasma 3.9 mEq/L 3.6 - 5.0 [facility] Chloride [Moles/volume] in Serum or Plasma 100 mEq/L 98 - 107 [facility] Carbon dioxide, total [Moles/volume] in Serum or Plasma 28 MEQ/L 22 - 30 [facility] Glucose [Mass/volume] in Serum or Plasma 99 MG/DL 65 - 110 [facility] BUN 13 MG[facility]DL 7 - [facility] Creatinine [Mass/volume] in Serum or Plasma 0.7 MG/DL 0.7 - 1.5 [facility] BUN/CREAT 19 8 - 27 [facility] Protein [Mass/volume] in Serum or Plasma 7.7 G/DL 6.3 - 8.2 [facility] Albumin [Mass/volume] in Serum or Plasma 4.3 G/DL 3.9 - 5.0 [facility] Globulin [Mass/volume] in Serum by calculation 3.4 GM/DL 2.4 - 3.2 H [facility] A/G RATIO 1.3 0.8 - 2.0 [facility] Calcium [Mass/volume] in Serum or Plasma 9.3 MG/DL 8.4 - 10.2 [facility] Bilirubin.total [Mass/volume] in Serum or Plasma <0.7 MG/DL 0.2 - 1.3 [facility] Alkaline phosphatase [Enzymatic activity/volume] in Serum or Plasma 107 U/L 38 - 126 [facility] Aspartate aminotransferase [Enzymatic activity/volume] in Serum or Plasma 23 U/L 5 - 40 [facility] Alanine aminotransferase [Enzymatic activity/volume] in Seru m or Plasma 20 U/L 7 - 56 [facility] Anion gap 3 in Serum or Plasma 7.0 mmol/L 8.0 - 16.0 L [facility] AGE 20 yrs [facility] NON-AA GFR >60 mL/min [facility] AFR AMER GFR >60 mL/min [facility] spital Male GFR In terprentation [...] >32 mL/min Normal ID Date Data Source [id number] 06/16/2020 11:09:00 PM EST [facility] Name Value Range Interpretation Code Description Data Shira rce(s) Supporting Document(s) Lactate [Moles/volume] in Serum or Plasma 1.3 MMOL/L 0.2 - 2.2 [facility] ID Date Data Source [id number] 06/16/2020 11:08:00 PM [facility] Name Value Range Interpretation Code Description Data Shira rce(s) Supporting Document(s) URINALYSIS [facility] yulia UR[facility]ALYSIS SOURCE [facility] COL[facility] yellow NORMAL: Yellow [facility]sp[facility] CLARITY cloudy NORMAL: Clear [facility] spital Specific gravity of Urine by Test strip 1.025 1.001 - 1.030 [facility] pH 6 5 - 9 [facility] Glucose [Mass/volume] in Urine by Test strip NORM NORMAL: Negat [facility] Bilirubin.total [Presence] in Urine by Test strip NEG NORMAL: Negative [facility] Ketones [Presence] in Urine by Test strip NEG NORMAL: Negative [facility] Protein [Mass/volume] in Urine by Test strip 30 NORMAL: Negat [facility] Nitrite [Presence] in Urine by Test strip NEG NORMAL: Negative [facility] BLOOD 250 NORMAL: Negative [facility] Leukocyte esterase [Presence] in Urine by Test strip 25 MAURIZIO L: Negative [facility] Urobilinogen [Mass/volume] in Urine by Test strip 1 less rocky n 1.0 mg/dL [facility] MICROSCOPIC See Below [facility] WBC 3 - 5 NORMAL: NONE SEEN [facility] Erythrocytes [#/volume] in Urine by Test strip 5 - 7 NORMAL: NON E SEEN A [facility] EPITHELIAL MANY NORMAL: NONE SEEN A [facility] Bacteria [Presence] in Urine sediment by Light microscopy 2+ MOD NORMAL: NONE SEEN A [facility] Mucus [Presence] in Urine sediment by Light microscopy 1+ NOR MAL: NONE SEEN [facility] Crystals [type] in Urine sediment by Light microscopy See Below [facility] CALCIUM OX Trace NORMAL: NONE SEEN [facility] ID Date Data Source [id number] 06/16/2020 11:04:00 PM EST [facility] Name Value Range Interpretation Code Description Data Shira rce(s) Supporting Document(s) CBC W/AUTOMATED DIFF [facility] COMPLETE BLOOD COUNT Leukocytes [#/volume] in Blood by Automated count 12.2 10^3/uL 4.2 - 11.0 H [facility] Erythrocytes [#/volume] in Blood by Automated count 4.63 10^6/uL 4. 20 - 5.40 [facility] Hemoglobin [Mass/volume] in Blood 13.9 g/dL 12.0 - 16.0 [facility] Hematocrit [Volume Fraction] of Blood by Automated count 41.0 % 3 7.0 - 47.0 [facility] Erythrocyte mean corpuscular volume [Entitic volume] by Auto mated count 88.6 fL 81.0 - 101 [facility] Erythrocyte mean corpuscular hemoglobin [Entitic mass] by Automated count 30.0 pg 27.0 - 34.0 [facility] Erythrocyte mean corpuscular hemoglobin concentration [Mass/volume] by Automated count 33.9 g/dL 31.0 - 36.0 [facility] Erythrocyte distribution width [Ratio] by Automated count 11.5 % 11.5 - 14.5 [facility] Platelets [#/volume] in Blood by Automated count 349 10^3/uL 150 - 45 0 [facility] Platelet mean volume [Entitic volume] in Blood by Automated count 8.4 fL 7.4 - 10.4 [facility] Neutrophils/100 leukocytes in Blood by Automated count 67.8 % 37. 0 - 80.0 [facility] Lymphocytes/100 leukocytes in Blood by Manual count 24.5 % 25.0 - 40.0 L [facility] Monocytes/100 leukocytes in Blood by Automated count 6.4 % 3.0 - 8.0 [facility] Eosinophils/100 leukocytes in Blood by Automated count 0.6 % 0.0 - 7.0 [facility] Basophils/100 leukocytes in Blood by Automated count 0.2 % 0.0 - 2.5 [facility] %IG 0.5 % 0.0 - 0.0 H [facility] al %NRBC 0.0 % 0.0 - 0.0 [facility] Neutrophils [#/volume] in Blood by Automated count 8.27 10^3/uL 2.00 - 6.90 H [facility] Lymphocytes [#/volume] in Blood by Automated count 2.98 10^3/uL 0.60 - 3.40 [facility] Monocytes [#/volume] in Blood by Automated count 0.78 10^3/uL 0.00 - 0.90 [facility] Eosinophils [#/volume] in Blood by Automated count 0.07 10^3/uL 0.00 - 0.70 [facility] Basophils [#/volume] in Blood by Automated count 0.02 10^3/uL 0.00 - 0.20 [facility] #IG 0.06 10^3/uL 0.00 - 0.10 [facility] #NRBC 0.00 10^3/uL 0.00 - 0.00 [facility] MANUAL DIFF NOT INDICATED [facility] RBC MORPH NOT INDICATED [facility] ID Date Data Source [id number] 05/19/2020 11:06:00 AM EDT [facility] [address] [place] [address] PHONE: [phone] FAX: [phone] Name .................. : JUANITO Waddell Acct Number.................. : [id number] ROOM. ................. : TR-06 MR Number ................... : [id number] Stay type ............. : E/R Discharge Date......... ... : 05/16/20 Admit Date ......... : 05/16/20 Admit Phys .................... : RAMIN ANTHONY Date of ....... : 2000 Family Phys ................... : UNKNOWN CO Phone .................. : [phone] Age ................................ : 20 Film# .................. .:[id number] Sex ................................. : F Unsigned transcriptions are preliminary reports and do not represent a medical or legal document CT ABD & PELV W/O ORAL W/[place] [id number] COMPLETE:05/16/20 11:31 LANA 51857 Reason(s): Abdominal Pain CT SCAN OF THE [...] 12:18, Dictation Date: Page 1 of 2 [place] [address] PHONE: [phone] FAX: [phone] Name .................. : JUANITO Waddell Acct Number.................. : [id number] ROOM. ................. : TR-06 MR Number ................... : [id number] Stay type ............. : E/R Discharge Date......... ... : 05/16/20 Admit Date ......... : 05/16/20 Admit Phys .................... : RAMIN ANTHONY Date of ....... : 2000 Family Phys ................... : UNKNOWN CO Phone .................. : [phone] Age ....................... ......... : 20 Film# .................. .:[id number] Sex ................................. : F Unsigned transcriptions are preliminary reports and do not represent a medical or legal document CT ABD & PELV W/[place] ORAL W/[place] [id number] COMPLETE:05/16/20 11:31 LANA [id number] Reason(s): Abdominal Pain Copy for: EMERGENCY DEPT via mode Copy for: 710 MED REC DISCHARGED Page 2 of 2 Name Value Range Interpretation Code Description Data Shira rce(s) Supporting Document(s) ID Date Data Source [id number] 05/16/2020 09:17:00 AM EDT [facility] 1 OrderSheet [facility] Emergency Department [address] [place] [address] Phone #: ext- [phone] 05/16/2020 09:09 Patient: [...] Reason for Study: Abdominal Pain 2 OrderSheet [facility] Emergency Department [address] [place] [address] Phone #: ext- [phone] 05/16/2020 09:09 Patient: SCARLET SOLOMON Sex: F : 2000 Age: 20yMEDICATION/IV/DRIP/FLUID ORDERSOrder Description Priority Entered Acknowledged InitialedIV NS : Bolus 1000 09:39 05/16/2020 09:55 Surjit, JuliemL, then 125 mL/hr Samir Poole R.NlEder(can be titrated per Physician;additionalphysicianinstruction)Zofran 4 mg IVP X 1 09:40 05/16/2020 09:55 Narda Eddyose: 4 mg (NOW Samir Poole R.N.x1) Physician;Protonix IVPB 40 09:40 05/16/2020 09:56 Karma Eddymg with Dextrose Samir Wu.NElder100 ml spike bag Physician;(D5W)GENERAL ORDERSOrder Description Priority [...] rce(s) Supporting Document(s) ID Date Data Source [id number] 05/16/2020 09:17:00 AM EDT [facility] 1 Medication Reconciliation Report [facility] Emergency Department [address] [place] [address] Phone #: ext- [phone] 05/16/2020 09:09 Patient: [...] / diarrhea. Dispense 14 tablet. Refills:0. Substitution permitted.[facility] [address] ; [place] [address]. .ibuprofen 800 mg tablet Take 1 tablet every eight hours as needed for 10 days -- for pain / fever.Dispense 30 tablet. Refills: 0. Substitution permitted.[facility] ; [place] [address]. .Pyridium 200 mg tablet Take 1 tablet every eight hours for 2 days -- for cystitis / bladder spasm.Dispense 6 tablet. Refills: 0. Substitution permitted.[facility] [address] ; [place] [address]. . -- Samir Poole, Physician 2 Medication Reconciliation Report [facility] Emergency Department [address] [place] [address] Phone #: ext- [phone] 05/16/2020 09:09 Patient: SCARLET SOLOMON Sex: F : 2000 Age: 20y Name Value Range Interpretation Code Description Data Shira rce(s) Supporting Document(s) ID Date Data Source [id number] 05/16/2020 09:17:00 AM EDT [facility] 1 Medication Administration Record [facility] Emergency Department [address] [place] [address] Phone #: ext- [phone] 05/16/2020 09:09 Patient: SCARLET SOLOMON Sex: F : 2000 Age: 20yWeight: 81.6 kgHeight/Length: 66 inBMI: 29ALLERGIES: None Date/Time Medication Administered Medication OrderedStart IV NS IV NS : Bolus 1000 mL, then 79929:55 05/16/2020 Dose: IV Fluids mL/hr (can be [...] rce(s) Supporting Document(s) ID Date Data Source [id number] 05/16/2020 09:17:00 AM EDT [facility] 1 General Instructions [facility] Emergency Department [address] [place] [address] Phone #: ext- [phone] 05/16/2020 09:09 Patient: SCARLET SOLOMON Sex: F [...] / diarrhea. Dispense 14 tablet. Refills:0. Substitution permitted.[facility] [address] ; [place] [address]. .ibuprofen 800 mg tablet Take 1 tablet every eight hours as needed for 10 days -- for pain / fever.Dispense 30 tablet. Refills: 0. Substitution permitted.[facility] [address] ; [place] [address]. .Pyridium 200 mg tablet Take 1 tablet every eight hours for 2 days -- for cystitis / bladder spasm.Dispense 6 tablet. Refills: 0. Substitution permitted.[facility] [address] ; [place] [address]. FaxNumber: [phone].Understanding of the discharge instructions verbalized by patient.Follow-up with: [facility], , , [address] [place] [address], , [place], [address] Follow up Tuesday if not better. Call for an appointment. Reason for referral: evaluation, treatment andUTI / Mesenteric Adenitis / Diarrhea. 2 General Instructions [facility] Emergency Department [address] [place] [address], [place] [address] Phone #: ext- [phone] 05/16/2020 09:09 Patient: SCARLET SOLOMON Sex: F [...] Drink plenty of fluids. 3 General Instructions [facility] Emergency Department [address] [place] [address] Phone #: ext- [phone] 05/16/2020 09:09 Patient: SCARLET SOLOMON Sex: F : 2000 Age: 20y Don't smoke or drink alcohol.Follow-up careFollow up with your healthcare provider, or as advised. It is often very hard to tell mesenteric adenitisapart from appendicitis. So close follow-up is needed.If X-rays were done, a radiologist will look at them. You will be told if there are changes.Call [phone] if any of these occur: Trouble breathing [...] Swelling in the abdomen 4 General Instructions [facility] Emergency Department [address] [place] [address] Phone #: ext- [phone] 05/16/2020 09:09 Patient: SCARLET SOLOMON Sex: F : 2000 Age: 20y Bloody stools [id number] [employer]. [address] [place] [address]. All rights reserved. This information is not [...] worry (anxiety) Other illnesses 5 General Instructions [facility] Emergency Department [address] [place] [address] Phone #: ext- [phone] 05/16/2020 09:09 Patient: [...] for heart disease or after a stroke) Jeka-hlm-yncolds medicines for diarrhea, nausea, and vomiting are generally OK unless you have bleeding, fever, or severe abdominal pain.General care If symptoms are severe, rest at home for the next 24 hours, or until you are feeling better. Washing your hands with soap and water, or using alcohol-based hand juvenile justice officer is the best way to stop the [...] called oral rehydration solutions 6 General Instructions [facility] Emergency Department [address] [place] [address] Phone #: ext- [phone] 05/16/2020 09:09 Patient: [...] after. Wash your hands or use alcohol-based juvenile justice officer after using cutting boards, countertops, and 7 General Instructions [facility] Emergency Department [address] [place] [address] Phone #: ext- [phone] 05/16/2020 09:09 Patient: SCARLET SOLOMON Sex: F : 2000 Age: 20y knives that have been in contact with raw food. Dry your hands with a single use towel. Keep uncooked meats away from cooked and qcvyx-lv-qnc foods.Follow-up careFollow up with your healthcare provider, [...] more than 24 hours 8 General Instructions [facility] Emergency Department [address] [place] [address] Phone #: vzl- [phone] 05/16/2020 09:09 -- Patient: SCARLET SOLOMON Sex: F : 2000 Age: 20y Diarrhea that lasts more than 24 hours Fever of 100.4F (38.0C) or higher, or as directed by your healthcare provider Yellowish color to your skin or the whites of your eyes Signs of dehydration, such as dry mouth, little urine (less than every 6 hours), or very dark urine 2634-2172 [employer]. [address] [place] [address], [place] [address]. All rights reserved. This information is not [...] ofcystitis is an infection. 9 General Instructions [facility] Emergency Department [address] [place] [address] Phone #: ext- [phone] 05/16/2020 09:09 Patient: [...] catheter inserted Older age 10 General Instructions [facility] Emergency Department [address] [place] [address] Phone #: ext- [phone] 05/16/2020 09:09 Patient: [...] your symptoms are gone. 11 General Instructions [facility] Emergency Department [address] [place] [address] Phone #: ext- [phone] 05/16/2020 09:09 Patient: [...] if the results will affect your treatment.Call [phone] if any of the following occur: Trouble [...] swelling in the outer vaginal area (labia) 4044-3042 [employer]. [address] [place] [address]. All rights reserved. This information is not intended as asubstitute for professional medical care. Always follow your healthcare professional's instructions. 12 General Instructions [facility] Emergency Department [address] [place] [address], [place] [address] Phone #: ext- [phone] 05/16/2020 09:09 Patient: [...] and may increase bleeding. 13 General Instructions [facility] Emergency Department [address] [place] [address] Phone #: ext- [phone] 05/16/2020 09:09 Patient: [...] the nose or gums or easy bruising 6591-025[address] [employer]. [address] [place] [address]. All rights reserved. This information is not [...] to 6 hours if: 14 General Instructions [facility] Emergency Department [address] [place] [address] Phone #: ext- [phone] 05/16/2020 09:09 Patient: [...] Headache or stiff neck 15 General Instructions [facility] Emergency Department [address] [place] [address] Phone #: ext- [phone] 05/16/2020 09:09 Patient: [...] place where infectious diseases arecommon. 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 [...] you were there Where you stayed (hotel, round valley house, tent) What you ate and drank If you were bitten by insects or other bugs If you swam in freshwater If you had sex or got a tattoo or piercing while you were thereCheck the CDC to get more information about specific infectious diseases in the areas you havetraveled. 16 General Instructions [facility] Emergency Department [address] [place] [address] Phone #: ext- [phone] 05/16/2020 09:09 Patient: SCARLET SOLOMON Sex: F : 2000 Age: 20y 5929-9952 [employer]. [address] [place] [address]. All rights reserved. This information is not [...] rce(s) Supporting Document(s) ID Date Data Source [id number] 05/16/2020 09:17:00 AM EDT [facility] 1 Clinical Report - Nurses [facility] Emergency Department [address] [place] [address] Phone #: ext- [phone] 05/16/2020 09:09 Patient: [...] had nausea, vomiting and diarrhea. 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 Sepsis Screen negative. [...] of CRE. 2 Clinical Report - Nurses [facility] Emergency Department [address] [place] [address] Phone #: ext- [phone] 05/16/2020 09:09 Patient: [...] Identification band on patient. To treatment room. --05/16/20 Karma Eddy R.N.PHYSICAL ASSESSMENT( right flank pain).GENERAL [...] normal limits.SKIN: Skin is warm and dry. --05/16/20 Karma Eddy R.N.NURSING PROGRESS NOTESReassurance given. Two [...] no pain, 3 Clinical Report - Nurses [facility] Emergency Department [address] [place] [address] Phone #: ext- [phone] 05/16/2020 09:09 Patient: [...] patient. ( stool sample sent). --09:58 05/16/20 Karma dEdy R.N. Patient transported to CT by wheelchair [...] learning barriers present. Written instructions provided in Russian. The patient was discharged by the physician. She was discharged home. She left ambulatory and via private ve hicle. Patient driving. --11:44 05/16/20 Alfredo Enciso R.N. 11:43 05/16/20. BP: 148/92. MAP: 110. HR: 66. RR: 18. O2 saturation: 98%. Temp: 99.2 F. Pain level 4 Clinical Report - Nurses [facility] Emergency Department [address] [place] [address] Phone #: ext- [phone] 05/16/2020 09:09 Patient: SCARLET SOLOMON Sex: F : 2000 Age: 20y now: 09/24. --11:44 05/16/20 Alfredo Enciso R.N.Locked/Released at 05/16/2020 11:45 by Alfredo Enciso R.N. Name Value Range Interpretation Code Description Data Shira rce(s) Supporting Document(s) ID Date Data Source [id number] 05/16/2020 09:17:00 AM EDT [facility] 1 Clinical Report - Physicians/Mid Levels [facility] Emergency Department [address] [place] [address] Phone #: ext- [phone] 05/16/2020 09:09 Patient: [...] facility in a clinic. ( Seen at [facility] 2 days ago).REVIEW OF SYSTEMSNo fever, muscle [...] allergies. 2 Clinical Report - Physicians/Mid Levels [facility] Emergency Department [address] [place] [address] Phone #: ext- [phone] 05/16/2020 09:09 Patient: [...] ABD //T// PELV W/O ORAL [place] [address] PHONE: [phone] FAX: [phone] Name .................. : JUANITO Waddell Acct Number.................. : [id number] ROOM. ................. : TR-06 MR Number ................... : [id number] Stay type ............. : E/R Discharge Date......... ... : 05/16/20 Admit Date ......... : 05/16/20 Admit Phys .................... : STACY GABRIELLE Date of ....... : 2000 Family Phys ................... : UNKNOWN CO Phone .................. : [phone] Age ................................ : 20 Film# .................. .:[id number] Sex ................................. : F Unsigned transcriptions are preliminary reports and do not represent a medical or legal document CT ABD Reason(s): Abdominal Pain CT SCAN OF THE ABDOMEN AND PELVIS WITHOUT CONTRAST: 3 Clinical Report - Physicians/Mid Levels [facility] Emergency Department [address] [place] [address] Phone #: ext- [phone] 05/16/2020 09:09 Patient: [...] by EDIL Lewis. Examination was reviewed with Raaht Obando MD, radiologist at the time of this dictation. Electronically Reviewed and Signed By DCTNAME , SIGNDATE, TOD Transcribe Initials: BENJAMIN , Transcribe Date: 05/16/20 12:18, Dictation Date: Page 1 of 2 [place] [address] PHONE: [phone] FAX: [phone] Name .................. : JUANITO Waddell Acct Number.................. : [id number] ROOM. ................. : TR-06 MR Number ................... : [id number] Stay type ............. : E/R Discharge Date......... ... : 05/16/20 Admit Date ......... : 05/16/20 Admit Phys .................... : RAMIN BR Date of ....... : 2000 Family Phys ................... : UNKNOWN CO Phone .................. : [phone] Age ................................ : 20 Film# .................. .:[id number] Sex ................................. : F Unsigned transcriptions are preliminary reports and do not represent a medical or legal document CT ABD Reason(s): Abdominal Pain <<REPDIST>> Page 2 of 2Urinalysis: (STELLA: 05/16/2020 09:50) ( MsgRcvd 05/16/2020 10:42) Final results Test Result Flag Units (Reference) 4 Clinical Report - Physicians/Mid Levels [facility] Emergency Department [address] [place] [address] Phone #: ext- [phone] 05/16/2020 09:09 Patient: SCARLET SOLOMON Sex: F : 2000 Age: 20y URINALYSIS [...] PANEL 5 Clinical Report - Physicians/Mid Levels [facility] Emergency Department [address] [place] [address] Phone #: ext- [phone] 05/16/2020 09:09 Patient: SCARLET SOLOMON Sex: Bairon : 2000 Age: 20y SODIUM 137 mEq/L [...] Male GFR Interprentation 20-49 yrs >60 mL/min Amrwdj62-57 yrs >56 mL/min Normal 60-69 yrs >49 mL/min Normal 70-79yrs>42 mL/min Normal 80 and above >35 mL/min Normal Female GFRInterpretation 20-39 yrs >60 mL/min Normal 40-49 yrs >58 mL/minNormal 50-59 yrs >51 mL/min Normal 60-69 yrs >45 mL/min Lxtnku66-16 yrs >39 mL/min Normal 80 and above [...] NEGATIVE (NORMAL: NEGAT { KIT LOT # [id number] ){ KIT EXP DATE05.20.21 ){ PROCEDURAL CONTROL VALID)GI 4 Panel: (STELLA: 05/16/2020 09:50) ( MsgRcvd 05/17/2020 11:28) Final results Test Result Flag Units (Reference) GI PANEL _GASTROINTESTINAL PANEL_ TEST PERFORMED AT [facility] [id number] [place] [address] CLIA# [id number] SEE SCANNED REPORT.Note - Tests: (CT abdomen / pelvis - mesenteric adenitis. No ureteral stones.). 6 Clinical Report - Physicians/Mid Levels [facility] Emergency Department [address] [place] [address] Phone #: ext- [phone] 05/16/2020 09:09 Patient: [...] Dispense 14 tablet. Refills: 0. Substitution permitted. [facility] [address] ; [place] [address]. . ibuprofen 800 mg tablet Take 1 tablet every eight hours as needed for 10 days -- for pain / fever. Dispense 30 tablet. Refills: 0. Substitution permitted. Pharmacy [facility] [address] ; [place] [address]. . 7 Clinical Report - Physicians/Mid Levels [facility] Emergency Department [address] [place] [address] Phone #: ext- [phone] 05/16/2020 09:09 Patient: SCARLET SOLOMON Sex: Bairon : 2000 Age: 20y Pyridium 200 mg tablet Take 1 tablet every eight hours for 2 days -- for cystitis / bladder spasm. Dispense 6 tablet. Refills: 0. Substitution permitted. [facility] [address] ; [place] [address]. . Understanding of the discharge instructions verbalized by patient. Follow-up with: [facility], , , [address] [place] [address], , [place], [address] Follow up Tuesday if not better. Call for an appointment. Reason for referral: evaluation, treatment and UTI / Mesenteric Adenitis / Diarrhea.(Electronically signed by Samir Poole, Physician 05/18/2020 07:42) Name Value Range Interpretation Code Description Data [facility] rce(s) Supporting Document(s) ID Date Data Source [id number] 05/16/2020 08:58:00 PM EDT [facility] FilmArray Gastrointestinal panel is a qu [...] OTHER EXPERTS. (E.G. GUIDELINES/POLICYSTATEMENTS PUBLISHED BY THE [place] [employer] THE SOCIETY FOR HEALTHCARE EPIDEMIOLOGY OF [place] ANDTHE INFECTIOUS DISEASE SOCIETY OF [place]).No Organisms Detected Name Value Range Interpretation Code Description Data Shira rce(s) Supporting Document(s) ID Date Data Source [id number] 05/17/2020 11:28:00 AM EDT [facility] Name Value Range Interpretation Code Description Data Shira rce(s) Supporting Document(s) [facility] [place] [address] CLIA# [id number] SEE SCANNED REPORT ID Date Data Source [id number] 05/16/2020 10:41:00 AM EDT [facility] Name Value Range Interpretation Code Description Data Shira rce(s) Supporting Document(s) URINALYSIS [facility] COL[facility] yellow NORMAL: Yellow [facility] CLARITY hazy NORMAL: Clear [facility] Specific gravity of Urine by Test strip 1.020 1.001 - 1.030 [facility] pH 5 5 - 9 [facility] Glucose [Mass/volume] in Urine by Test strip NORM NORMAL: Negat [facility] Bilirubin.total [Presence] in Urine by Test strip NEG NORMAL: Negative [facility] Ketones [Presence] in Urine by Test strip NEG NORMAL: Negative [facility] Protein [Mass/volume] in Urine by Test strip 30 NORMAL: Negat [facility] Nitrite [Presence] in Urine by Test strip NEG NORMAL: Negative [facility] BLOOD 250 NORMAL: Negative [facility] Leukocyte esterase [Presence] in Urine by Test strip 25 MAURIZIO L: Negative [facility] Urobilinogen [Mass/volume] in Urine by Test strip NOR less rocky n 1.0 mg/dL [facility] MICROSCOPIC See Below [facility] ital WBC 3 - 5 NORMAL: NONE SEEN [facility] Erythrocytes [#/volume] in Urine by Test strip TNTC NORMAL: NON E SEEN A [facility] EPITHELIAL MODERATE NORMAL: NONE SEEN A [facility] Bacteria [Presence] in Urine sediment by Light microscopy 1+ SMALL NORMAL: NONE SEEN [facility] Mucus [Presence] in Urine sediment by Light microscopy 1+ NOR MAL: NONE SEEN [facility] ID Date Data Source [id number] 05/16/2020 10:24:00 AM EDT [facility] Name Value Range Interpretation Code Description Data Shira rce(s) Supporting Document(s) COMPREHENSIVE METABOLIC PANEL [facility] COMPREHENSIVE METABOLIC PANEL Sodium [Moles/volume] in Serum or Plasma 137 mEq/L 134 - 153 [facility] Potassium [Moles/volume] in Serum or Plasma 5.0 mEq/L 3.6 - 5.0 [facility] Chloride [Moles/volume] in Serum or Plasma 101 mEq/L 98 - 107 [facility] Carbon dioxide, total [Moles/volume] in Serum or Plasma 26 MEQ/L 22 - 30 [facility] Glucose [Mass/volume] in Serum or Plasma 114 MG/DL 65 - 110 H [facility] BUN 11 MG/DL 7 - 21 [facility] al Creatinine [Mass/volume] in Serum or Plasma 0.5 MG/DL 0.7 - 1.5 L [facility] BUN/CREAT 22 8 - 27 [facility] Protein [Mass/volume] in Serum or Plasma 7.4 G/DL 6.3 - 8.2 [facility] Albumin [Mass/volume] in Serum or Plasma 4.3 G/DL 3.9 - 5.0 [facility] Globulin [Mass/volume] in Serum by calculation 3.1 GM/DL 2.4 - 3.2 [facility] A/G RATIO 1.4 0.8 - 2.0 [facility] Calcium [Mass/volume] in Serum or Plasma 9.4 MG/DL 8.4 - 10.2 [facility] Bilirubin.total [Mass/volume] in Serum or Plasma 0.7 MG/DL 0.2 - 1.3 [facility] Alkaline phosphatase [Enzymatic activity/volume] in Serum or Plasma 98 U/L 38 - 126 [facility] Aspartate aminotransferase [Enzymatic activity/volume] in Serum or Plasma <39 U/L 5 - 40 [facility] Alanine aminotransferase [Enzymatic activity/volume] in Seru m or Plasma <15 U/L 7 - 56 [facility] Anion gap 3 in Serum or Plasma 10.0 mmol/L 8.0 - 16.0 [facility] AGE 20 yrs [facility] Hospit al NON-AA GFR >60 mL/min [facility] Hosp ital AFR AMER GFR >60 mL/min [facility] Male GFR In terprentation 20-49 [...] >32 mL/min Normal ID Date Data Source [id number] 05/16/2020 10:12:00 AM EDT [facility] Name Value Range Interpretation Code Description Data Shira rce(s) Supporting Document(s) Lipase [Enzymatic activity/volume] in Serum or Plasma 20 U/L 13 - 60 [facility] ID Date Data Source [id number] 05/16/2020 10:04:00 AM EDT [facility] Name Value Range Interpretation Code Description Data Shira rce(s) Supporting Document(s) HCG SERUM QUAL NEGATIVE NORMAL: NEGATIVE [facility] HCG SERUM QL REENTER NEGATIVE NORMAL: NEGATIVE [facility] { KIT LOT # [id number] ){ KIT EXP DATE 05.20.21 ){ PROCEDURAL CONTROL VALID ) ID Date Data Source [id number] 05/16/2020 10:00:00 AM T [facility] Name Value Range Interpretation Code Description Data Shira rce(s) Supporting Document(s) CBC W/AUTOMATED DIFF [facility] COMPLETE BLOOD COUNT Leukocytes [#/volume] in Blood by Automated count 8.8 10^3/uL 4.2 - 1 1.0 [facility] Erythrocytes [#/volume] in Blood by Automated count 4.66 10^6/uL 4. 20 - 5.40 [facility] Hemoglobin [Mass/volume] in Blood 14.0 g/dL 12.0 - 16.0 [facility] Hematocrit [Volume Fraction] of Blood by Automated count 41.1 % 3 7.0 - 47.0 [facility] Erythrocyte mean corpuscular volume [Entitic volume] by Auto mated count 88.2 fL 81.0 - 101 [facility] Erythrocyte mean corpuscular hemoglobin [Entitic mass] by Automated count 30.0 pg 27.0 - 34.0 [facility] Erythrocyte mean corpuscular hemoglobin concentration [Mass/volume] by Automated count 34.1 g/dL 31.0 - 36.0 [facility] Erythrocyte distribution width [Ratio] by Automated count 11.6 % 11.5 - 14.5 [facility] Platelets [#/volume] in Blood by Automated count 337 10^3/uL 150 - 45 0 [facility] Platelet mean volume [Entitic volume] in Blood by Automated count 8.6 fL 7.4 - 10.4 [facility] Neutrophils/100 leukocytes in Blood by Automated count 69.0 % 37. 0 - 80.0 [facility] Lymphocytes/100 leukocytes in Blood by Manual count 22.3 % 25.0 - 40.0 L [facility] Monocytes/100 leukocytes in Blood by Automated count 6.6 % 3.0 - 8.0 [facility] Eosinophils/100 leukocytes in Blood by Automated count 1.5 % 0.0 - 7.0 [facility] Basophils/100 leukocytes in Blood by Automated count 0.3 % 0.0 - 2.5 [facility] %IG 0.3 % 0.0 - [facility].0 [facility] 0.[facility] % 0.0 - 0.0 [facility] al Neutrophils [#/volume] in Blood by Automated count 6.09 10^3/uL 2.00 - 6.90 [facility] Lymphocytes [#/volume] in Blood by Automated count 1.97 10^3/uL 0.60 - 3.40 [facility] Monocytes [#/volume] in Blood by Automated count 0.58 10^3/uL 0.00 - 0.90 [facility] Eosinophils [#/volume] in Blood by Automated count 0.13 10^3/uL 0.00 - 0.70 [facility] Basophils [#/volume] in Blood by Automated count 0.03 10^3/uL 0.00 - 0.20 [facility] #IG 0.03 10^3/uL 0.00 - 0.10 [facility] ospital #NRBC 0.00 10^3/uL 0.00 - 0.00 [facility] ospital MANUAL DIFF NOT INDICATED [facility] RBC MORPH NOT INDICATED [facility] ID Date Data Source [id number] 05/16/2020 09:52:00 AM EDT [facility] Name Value Range Interpretation Code Description Data Shira rce(s) Supporting Document(s) Lactate [Moles/volume] in Serum or Plasma 1.9 MMOL/L 0.2 - 2.2 [facility] ID Date Data Source [id number] 03/03/2020 03:01:00 PM EDT [facility] [address] [place] [address] PHONE: [phone] FAX: [phone] Name .................. : JUANITO Waddell Acct Number.................. : [id number] ROOM. ................. : [facility]03 Number ................... : [id number] Stay type ............. : E/R Discharge Date......... ... : Admit Date ......... : 02/29/20 Admit Phys .................... : RAMIN ANTHONY Date of ....... : 2000 Family Phys ................... : UNKNOWN CO Phone .................. : [phone] Age ................................ : 20 Film# .................. .:[id number] Sex ................................. : F Unsigned transcriptions are preliminary reports and do not represent a medical or legal document ABDOMEN 1 VIEW [id number] COMPLETE:02/29/20 21:40 [id number] Reason(s): Flank Pain Right ABDOMEN: SINGLE VIEW [...] rce(s) Supporting Document(s) ID Date Data Source [id number] 03/03/2020 03:01:00 [place] [address] PHONE: [phone] FAX: [phone] Name .................. : JUANITO Waddell Acct Number.................. : [id number] ROOM. ................. : TR-03 MR Number ................... : [id number] Stay type ............. : E/R Discharge Date......... ... : Admit Date ......... : 02/29/20 Admit Phys .................... : VENERUS GABRIELLE Date of ....... : 2000 Family Phys ................... : UNKNOWN CO Phone .................. : [phone] Age ................................ : 20 Film# .................. .:[id number] Sex ................................. : F Unsigned transcriptions are preliminary reports and do not represent a medical or legal document CT HEAD W/O CONTRAST [id number] COMPLETE:02/29/20 21:40 25020 Reason(s): Head Pain CT OF THE HEAD [...] via fax Copy for: EMERGENCY DEPT via [facility] Copy for: 710 MED REC DISCHARGED Page 1 of 1 Name Value Range Interpretation Code Description Data Shira rce(s) Supporting Document(s) ID Date Data Source [id number] 02/29/2020 09:35:00 PM EDT [facility] 1 OrderSheet [facility] Emergency Department [address] [place] [address] Phone #: ext- [phone] 02/29/2020 21:28 Patient: SCARLET SOLOMON Sex: F : 2000 Age: 20yWEIGHT:81.6 kg HEIGHT:66 inches BMI:29.0ALLERGIES: No Known Drug AllergyCHIEF COMPLAINT: headache, headacheDIAGNOSIS: Urinary tract infectious disease, HeadacheLAB ORDERSOrder Description Priority Entered Acknowledged InitialedCBC w Diff STAT 21:40 02/29/2020 21:41 Jesse Tai R.N.;CMP STAT 21:40 02/29/2020 21:41 Jesse Tai R.N.;Lipase STAT 21:40 02/29/2020 21:41 Jesse Tai R.N.;Urinalysis (Clean STAT 21:40 02/29/2020 22:15 Sorbantonio,Catch) Jesse SOLO;Beta-HCG, Qual STAT 21:40 02/29/2020 22:15 [...] 1000 21:40 02/29/2020 22:03 Sorbero, 2 OrderSheet [facility] Emergency Department [address] [place] [address] Phone #: ext- [phone] 02/29/2020 21:28 Patient: SCARLET SOLOMON Sex: F : 2000 Age: 20ymL, then 125 mL/hr Jesse SOLO;Benadryl IVP 25 mg 21:40 02/29/2020 22:04 Jesse Tai R.N. PA;Reglan IVPB 10 mg 21:40 02/29/2020 22:04 Sorbantonio,with Dextrose Jesse Robles R.N.Intravenous 50 mL PA;(D5W)Toradol IVP 15 mg 21:40 02/29/2020 22:03 Jesse Tai R.N.;Zofran IVP 8 mg 21:40 02/29/2020 22:03 Jesse Tai R.N. PA;Rocephin 22:38 02/29/2020 Ack'd: 23:13 Marti 23:31 Marti Jay(1gm/50mL) IVPB Jesse Yu R.N.1000 mg with PA;Dextrose 50 mlspike bag (D5W)GENERAL ORDERSOrder Description Priority Entered Acknowledged InitialedNPO 21:40 02/29/2020 21:41 Jesse Tai R.N.;Saline Lock 21:40 02/29/2020 21:51 Jesse Tai R.N.;[Electronically signed by Jesse Wilcox (22:39 02/29/2020)][Electronically signed by Heath Yu RN (00:57 03/01/2020)][Electronically signed by Samir Poole Physician (01:55 03/01/2020)][Electronically locked by Heath Yu RN (00:57 03/01/2020)] Name Value Range Interpretation Code Description Data Shira rce(s) Supporting Document(s) ID Date Data Source [id number] 02/29/2020 09:35:00 PM EDT [facility] 1 Medication Reconciliation Report [facility] Emergency Department [address] [place] [address] Phone #: ext- [phone] 02/29/2020 21:28 Patient: [...] 30 tablet. Refills: 1. Substitution permitted.Pharmacy - [facility] [phone] ; [place] [address]. FaxNumber: [phone]. 2 Medication Reconciliation Report [facility] Emergency Department [address] [place] [address] Phone #: ext- [phone] 02/29/2020 21:28 Patient: SCARLET SOLOMON Sex: F : 2000 Age: 20yCipro 500 mg tablet Take 1 tablet twice a day for 7 days -- for UTI. Dispense 14 tablet. Refills: 0.Substitution permitted.Pharmacy - [facility] [phone] ; [place] [address]. . -- Samir Poole, Physician Name Value Range Interpretation Code Description Data Shira rce(s) Supporting Document(s) ID Date Data Source [id number] 02/29/2020 09:35:00 PM EDT [facility] 1 Medication Administration Record [facility] Emergency Department [address] [place] [address] Phone #: ext- [phone] 02/29/2020 21:28 Patient: SCARLET SOLOMON Sex: F : 2000 Age: 20yWeight: 81.6 kgHeight/Length: 66 inBMI: 29ALLERGIES: No Known Drug Allergy Date/Time Medication Administered Medication OrderedStart NS [IV] NS IV : Bolus 1000 mL, then 08321:03 02/29/2020 Dose: IV Fluids mL/hrSTravis jones R.N. Rate: 1500 mL/hr over 40 minute(s)---- Dispensed: 1000 mL bagStop Site: #1 left AC00:38 03/01/2020Jeanna Moore BENADRYL [IVP] (DIPHENHYDRAMINE Benadryl IVP 25 mg22:04 02/29/2020 HCL)Travis Tai R.N. Dose: 25 mg IVP Site: #1 left ACStart REGLAN [IVPB] (METOCLOPRAMIDE Reglan IVPB 10 mg with Hnjmgqbo02:59 02/29/2020 HCL) Intravenous 50 mL (D5W)Travis Tai R.N. Dose: 10 mg IVPB---- Rate: 1000 mL/hr over 10 minute(s)Stop Dispensed: 50 mL bag22:11 02/29/2020 Site: #1 left Travis Yuan R.N.Given TORADOL [IVP] (KETOROLAC Toradol IVP 15 mg22:03 02/29/2020 TROMETHAMINE)Travis Tai R.NElder Dose: 15 mg IVP Site: #1 left ACGiven ZOFRAN [IVP] (ONDANSETRON HCL) Zofran IVP 8 mg22:03 02/29/2020 Dose: 8 mg IVPSTravis jones, R.N. Site: #1 left ACStart ROCEPHIN (1GM/50ML) [IVPB] Rocephin (1gm/50mL) IVPB 364278:30 02/29/2020 (CEFTRIAXONE SODIUM) mg with Dextrose 50 ml spike bagMarti Yu R.Salome Dose: 1 gm IVPB (D5W)---- Rate: 100 mL/hrStop Dispensed: 50 mL bag00:05 03/01/2020 Site: #1 left Cecilia Yu RN Name Value Range Interpretation Code Description Data Shira rce(s) Supporting Document(s) ID Date Data Source [id number] 02/29/2020 09:35:00 PM EDT [facility] 1 General Instructions [facility] Emergency Department [address] [place] [address] Phone #: ext- [phone] 02/29/2020 21:28 Patient: [...] 30 tablet. Refills: 1. Substitution permitted.Pharmacy - [facility] [phone] ; [place] [address]. .Cipro 500 mg tablet Take 1 tablet twice a day for 7 days -- for UTI. Dispense 14 tablet. Refills: 0.Substitution permitted.[facility] [phone] ; [place] [address]. . 2 General Instructions [facility] Emergency Department [address] [place] [address] Phone #: ext- [phone] 02/29/2020 21:28 Patient: [...] of sleep or oversleeping. 3 General Instructions [facility] Emergency Department [address] [place] [address] Phone #: ext- [phone] 02/29/2020 21:28 Patient: [...] by your healthcare provider 4 General Instructions [facility] Emergency Department [address] [place] [address] Phone #: ext- [phone] 02/29/2020 21:28 Patient: SCARLET SOLOMON Sex: F : 2000 Age: 20y Stiff neck Extreme drowsiness, confusion, or fainting Dizziness or dizziness with spinning sensation (vertigo) Weakness in an arm or leg or one side of your face You have trouble talking or seeing [phone] [employer]. [address] [place] [address]. All rights reserved. This information is not [...] ofcystitis is an infection. 5 General Instructions [facility] Emergency Department [address] [place] [address] Phone #: ext- [phone] 02/29/2020 21:28 Patient: [...] catheter inserted Older age 6 General Instructions [facility] Emergency Department [address] [place] [address] Phone #: ext- [phone] 02/29/2020 21:28 Patient: SCARLET SOLOMON Sex: F [...] your symptoms are gone. 7 General Instructions [facility] Emergency Department [address] [place] [address] Phone #: ext- [phone] 02/29/2020 21:28 Patient: [...] if the results will affect your treatment.Call [phone] if any of the following occur: Trouble [...] swelling in the outer vaginal area (labia) 7515-0491 [employer]. [address] [place] [address], [place] [address]. All rights reserved. This information is not intended as asubstitute for professional medical care. Always follow your healthcare professional's instructions. 8 General Instructions [facility] Emergency Department [address] [place] [address] Phone #: ext- [phone] 02/29/2020 21:28 Patient: [...] medicine during viral infection. 9 General Instructions [facility] Emergency Department [address] [place] [address] Phone #: ext- [phone] 02/29/2020 21:28 Patient: SCARLET SOLOMON MRN: [id number] Sex: F : 2000 Age: 20yFollow-up careFollow [...] breath Are unresponsiveImportant reminder 10 General Instructions [facility] Emergency Department [address] [place], [place] [address] Phone #: nab- [phone] 02/29/2020 21:28 Patient: SCARLET SOLOMON Sex: Bairon : 2000 Age: 20yCall your healthcare provider if you get a fever after visiting a place where infectious diseases arecommon. 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 [...] you were there Where you stayed (hotel, round valley house, tent) What you ate and drank If you were bitten by insects or other bugs If you swam in freshwater If you had sex or got a tattoo or piercing while you were thereCheck the [facility] to get more information about specific infectious diseases in the areas you havetraveled. 6715-6957 [employer]. [address] [place] [address]. All rights reserved. This information is not [...] rce(s) Supporting Document(s) ID Date Data Source [id number] 02/29/2020 09:35:00 PM EDT [facility] 1 Clinical Report - Nurses [facility] Emergency Department [address] [place] [address] Phone #: ext- [phone] 02/29/2020 21:28 Patient: SCARLET SOLOMON Sex: F : 2000 Age: 20yTRIAGEArrived by private vehicle. Historian: patient. Accompanied by family.Triage time: 21:29 02/29/2020. Acuity: LEVEL 3.Chief Complaint: HEADACHE, DIZZINESS, WEAKNESS, NAUSEA and VOMITING.Onset. (2 days ago). ( diarrhea). --21:34 02/29/20 Rashmi Hodges R.N.21:29 02/29/20. BP: 1 19/56. HR: 73. RR: 16. O2 saturation: 99%. [...] the [place] 2 Clinical Report - Nurses [facility] Emergency Department [address] [place] [address] Phone #: ext- [phone] 02/29/2020 21:28 Patient: [...] risk identified. --21:34 02/29/20 Rashmi Hodges R.N.PHYSICAL QLZSKOPIZG69:38 02/29/20. Ambulatory to room.GENERAL / NEURO / [...] Tai R.N. 3 Clinical Report - Nurses [facility] Emergency Department [address] [place] [address] Phone #: ext- [phone] 02/29/2020 21:28 Patient: [...] and precautions. Verbalizes understanding. --22:02/29/20 Travis Tai R.NElder22:02/29/2020 Started bag #1 1000 mL IV Fluids NS; at 1500 mL/hr over 40 minute(s) via site #1 via IVpump. Allergies verified and confirmed 5 rights. IV patency established. IV site checked: no pain, redness,or swelling. IV flushed thoroughly pre- and post-medication administration. Information reviewed withpatient including reason for taking this medication, signs of allergic reaction and precautions. Verbalizesunderstanding. --22:02/29/20 Travis Tai R.N.22:02/29/2020 Zofran (Ondansetron HCl) IVP 8 mg given [...] swelling. IV flushed thoroughly. --22: Travis Tai RElderN.Patient transported to [place] by wheelchair with residential appliance repair technician. --22:49 02/29/20 Heath Yu RN23:30 02/29/2020 [...] IV flushed 4 Clinical Report - Nurses [facility] Emergency Department [address] [place] [address] Phone #: ext- [phone] 02/29/2020 21:28 Patient: SCARLET SOLOMON Sex: F : 2000 Age: 20y thoroughly. --00:54 03/01/20 Heath Yu RN 00:38 03/01/2020 IV Fluids NS via IV site #1 Discontinued: discontinued upon discharge. Total amount infused: 960 mL. IV patency established. IV site checked: no pain, redness, or swelling. IV flushed thoroughly. --00:53 03/01/20 Heath Yu RN.DISPOSITION / DISCHARGE Lorimor Coma Scale: 15- eyes open- spontaneous (4); [...] Patient verbalized understanding. Written instructions provided in Russian. The patient was discharged home and accompanied [...] rce(s) Supporting Document(s) ID Date Data Source [id number] 02/29/2020 09:35:00 PM EDT [facility] 1 Clinical Report - Physicians/Mid Levels [facility] Emergency Department [address] [place] [address] Phone #: ext- [phone] 02/29/2020 21:28 Patient: SCARLET SOLOMON Sex: F [...] Oral. 2 Clinical Report - Physicians/Mid Levels [facility] Emergency Department [address] [place] [address] Phone #: ext- [phone] 02/29/2020 21:28 Patient: [...] 0.70) 3 Clinical Report - Physicians/Mid Levels [facility] Emergency Department [address] [place] [address] Phone #: ext- [phone] 02/29/2020 21:28 Patient: [...] Male GFR Interprentation 20-49 yrs >60 mL/min Dzbxfm70-98 yrs >56 mL/min Normal 60-69 yrs >49 mL/min Normal 70-79yrs>42 mL/min Normal 80 and above >35 mL/min Normal Female GFRInterpretation 20-39 yrs >60 mL/min Normal 40-49 yrs >58 mL/minNormal 50-59 yrs >51 mL/min Normal 60-69 yrs >45 mL/min Blctui20-67 yrs >39 mL/min Normal 80 and above >32 mL/min NormalLipase: (STELLA: 02/29/2020 21:50) ( [facility] 02/29/2020 22:27) Final results Test Result Flag Units (Reference) LIPASE 44 U/L (13 - 60)Urinalysis: (STELLA: 02/29/2020 22:15) ( [facility] 02/29/2020 22:31) Final results Test Result Flag Units (Reference) URINALYSIS URINALYSIS SOURCE R COLOR Yellow (NORMAL: Yello CLARITY Clear (NORMAL: Clear SPEC GRAVITY 1.020 (1.001 - 1.030 pH 6 (5 - 9) GLUCOSE Negative (NORMAL: Negat BILIRUBIN Negative (NORMAL: Negat KETONE Negative (NORMAL: Negat PROTEIN Negative (NORMAL: Negat NITRITE Negative (NORMAL: Negat 4 Clinical Report - Physicians/Mid Levels [facility] Emergency Department [address] [place] [address] Phone #: ext- [phone] 02/29/2020 21:28 Patient: SCARLET SOLOMON Sex: F [...] NEGATIVE (NORMAL: NEGAT { KIT LOT # [id number] ){ KIT EXP DATE [id number] ){ PROCEDURAL CONTROL VALID ).PROGRESS AND PROCEDURES [...] preceding 5 Clinical Report - Physicians/Mid Levels [facility] Emergency Department [address] [place] [address] Phone #: ext- [phone] 02/29/2020 21:28 Patient: [...] organomegaly. 6 Clinical Report - Physicians/Mid Levels [facility] Emergency Department [address] [place] [address] Phone #: ext- [phone] 02/29/2020 21:28 Patient: [...] 1.5) 7 Clinical Report - Physicians/Mid Levels [facility] Emergency Department [address] [place] [address] Phone #: ext- [phone] 02/29/2020 21:28 Patient: [...] Male GFR Interprentation 20-49 yrs >60 mL/min Wgtssa18-47 yrs >56 mL/min Normal 60-69 yrs >49 mL/min Normal 70-79yrs>42 mL/min Normal 80 and above >35 mL/min Normal Female GFRInterpretation 20-39 yrs >60 mL/min Normal 40-49 yrs >58 mL/minNormal 50-59 yrs >51 mL/min Normal 60-69 yrs >45 mL/min Byjfmu11-20 yrs >39 mL/min Normal 80 and above [...] NEG (NORMAL: Negat 8 Clinical Report - Physicians/Mid [facility] Emergency Department [address] [place] [address] Phone #: ext- [phone] 02/29/2020 21:28 Patient: [...] corrected result. Previously reported on ( MsgRcvd 02/29/2020:) as: NITRITE Negative (NORMAL: Negat BLOOD 10 A (NORMAL: Negat Above is a corrected result. Previously reported on ( MsgRcvd 02/29/2020 22:) as: BLOOD 25 A (NORMAL: Negat LEUK EST 25 (NORMAL: N egat Above is a corrected result. Previously reported on ( MsgRcvd 02/29/2020) as: LEUK EST Negative (NORMAL: Negat UROBILINOGEN NOR (less than 1.0 Above is a corrected result. Previously reported on ( [facility] 02/29/2020 22:31) as: UROBILINOGEN 1.0 (less than 1.0 MICROSCOPIC See Below WBC 1 - 3 (NORMAL: NONE RBC 1 - 3 (NORMAL: NONE EPITHELIAL FEW (NORMAL: NONE BACTERIA Trace (NORMAL: NONEBeta-HCG, Qual Urine: (STELLA: 02/29/2020 22:15) ( [facility] 02/29/2020 22:28) Final results Test Result Flag Units (Reference) HCG URINE QUAL NEGATIVE (NORMAL: NEGAT HCG URINE QL REENTER NEGATIVE (NORMAL: NEGAT { KIT LOT # [id number] ){ KIT EXP [id number] ){ PROCEDURAL CONTROL VALID)Abdomen 1 View: (STELLA: 02/29/2020 21:40) ( [facility] 03/01/2020 01:10) In Progress Exam ABDOMEN [address] [facility] [address] [place] [address] PHONE: [phone] FAX: [phone] Name .................. : JUANITO Waddell Acct Number.................. : [id number] ROOM. ................. : TR-03 MR Number ................... : [id number] Stay type ............. : E/R Discharge Date......... ... : Admit Date ......... : 02/29/20 Admit Phys .................... : STACYS GABRIELLE Date of ....... : 2000 Family Phys ................... : UNKNOWN CO Phone .................. : [phone] Age ................................ : 20 Film# .................. .:[id number] Sex ................................. : F Unsigned transcriptions are preliminary reports and do not represent a medical or legal document 9 Clinical Report - Physicians/Mid Levels [facility] Emergency Department [address] [place] [address] Phone #: ext- [phone] 02/29/2020 21:28 Patient: SCARLET SOLOMON Sex: F : 2000 Age: 20y ABDOMEN 1 VIEW 65581 COMP LETE:02/29/20 21:40 [id number] Reason(s): Flank Pain Right ABDOMEN: SINGLE VIEW HISTORY: Right flank pain. COMPARISON: CT study from 02/10/20. FINDINGS: Radiographically, no urolithiasis is evident. Cholecystectomy clips are present. Nonobstructive bowel gas pattern. No organomegaly. Clear lung bases. No osseous abnormality. IMPRESSION: Normal examination. No urolithiasis. Electronically Reviewed and Signed By DCTNAME , SIGNDATE, JORGE LUIS Transcribe Initials: BENJAMIN , Transcribe Date: 02/29/20 23:21, Dictation Date: <<REPDIST>> Page 1of 1CT Head W/O Cont: (STELLA: 02/29/2020 21:40) ( MsgRcvd 03/01/2020 01:11) In Progress Exam CT HEAD W/O CONTRAST [facility] [address] [place] [address] PHONE: [phone] FAX: [phone] Name .................. : JUANITO WHEELERALEXANDRIA Waddell Acct Number.................. : [id number] ROOM. ................. : TR-03 MR Number ................... : [id number] Stay type ............. : E/R Discharge Date......... ... : Admit Date ......... : 02/29/20 Admit Phys .................... : RAMIN ANTHONY Date of ....... : 2000 Family Phys ................... : UNKNOWN CO Phone .................. : [phone] Age ................................ : 20 Film# .................. .:[id number] Sex ................................. : F Unsigned transcriptions are preliminary reports and do not represent a medical or legal document CT HEAD W/O CONTRAST [id number] COMPLETE:02/29/20 21:40 16309 Reason(s): Head Pain CT OF THE HEAD WITHOUT CONTRAST: 10 Clinical Report - Physicians/Mid Levels [facility] Emergency Department [address] [place] [address] Phone #: ext- [phone] 02/29/2020 21:28 Patient: SCARLET SOLOMON Sex: F [...] 2020. Patient is stable. Symptoms much better. :Mar 01 2020. Pt. sound asleep and headache gone. I spoke with pt. and her spouse and they want to go home. She has a slight UTI which I will send an Rx for. Disposition: Discharged home in good and improved condition (:Mar 01 2020). Condition: good.CLINICAL IMPRESSION Episodic, poorly controlled tension headache. No migraine headache. Acute urinary tract infection with cystitis. No hematuria. Not associated with indwelling catheter or obstruction.INSTRUCTIONS 11 Clinical Report - Physicians/Mid Levels [facility] Emergency Department [address] [place] [address] Phone #: ext- [phone] 02/29/2020 21:28 Patient: SCARLET SOLOMON Sex: F [...] tablet. Refills: 1. Substitution permitted. Pharmacy - [facility] [phone] ; [place] [address]. . Cipro 500 mg tablet Take 1 tablet twice a day for 7 days -- for UTI. Dispense 14 tablet. Refills: 0. Substitution permitted. [facility] [phone] ; [place] [address]. Phone: . Follow-up: Follow up with your doctor in three days if not better. Call for an appointment. Reason for referral: evaluation, treatment and UTI / Headache. Understanding of the discharge instructions verbalized by patient and family.(Electronically signed by Samir Poole, Physician 03/01/2020 01:55) Name Value Range Interpretation Code Description Data Shira rce(s) Supporting Document(s) ID Date Data Source [id number] 03/01/2020 12:24:00 AM EDT [facility] Name Value Range Interpretation Code Description Data Shira rce(s) Supporting Document(s) URINALYSIS [facility] yulia URINALYSIS SOURCE R [facility] COLOR yellow NORMAL: Yellow [facility] CLARITY clear NORMAL: Clear [facility] Specific gravity of Urine by Test strip 1.010 1.001 - 1.030 [facility] 6 5 - [facility] Glucose [Mass/volume] in Urine by Test strip NORM NORMAL: Negat junie [facility] Bilirubin.total [Presence] in Urine by Test strip NEG NORMAL: Negative [facility] Ketones [Presence] in Urine by Test strip NEG NORMAL: Negative [facility] Protein [Mass/volume] in Urine by Test strip 500 NORMAL: Negat junie [facility] Nitrite [Presence] in Urine by Test strip NEG NORMAL: Negative [facility] BLOOD 10 NORMAL: Negative [facility] Leukocyte esterase [Presence] in Urine by Test strip 25 MAURIZIO L: Negative [facility] Urobilinogen [Mass/volume] in Urine by Test strip NOR less rocky n 1.0 mg/dL [facility] MICROSCOPIC See Below [facility] WBC 1 - 3 NORMAL: NONE SEEN [facility] Erythrocytes [#/volume] in Urine by Test strip 1 - 3 NORMAL: NON E SEEN [facility] EPITHELIAL FEW NORMAL: NONE SEEN [facility] Bacteria [Presence] in Urine sediment by Light microscopy Tr kristina NORMAL: NONE SEEN [facility] ID Date Data Source [id number] 02/29/2020 10:28:00 PM EDT [facility] Name Value Range Interpretation Code Description Data Shira rce(s) Supporting Document(s) HCG URINE QUAL NEGATIVE NORMAL: NEGATIVE [facility] HCG URINE QL REENTER NEGATIVE NORMAL: NEGATIVE [facility] { KIT LOT # [id number] ){ KIT EXP DATE 834821 ){ PROCEDURAL CONTROL VALID ) ID Date Data Source [id number] 02/29/2020 10:26:00 PM EDT [facility] Name Value Range Interpretation Code Description Data Shira rce(s) Supporting Document(s) Lipase [Enzymatic activity/volume] in Serum or Plasma 44 U/L 13 - 60 [facility] ID Date Data Source [id number] 02/29/2020 10:26:00 PM EDT [facility] Name Value Range Interpretation Code Description Data Shira rce(s) Supporting Document(s) COMPREHENSIVE METABOLIC PANEL [facility] COMPREHENSIVE METABOLIC PANEL Sodium [Moles/volume] in Serum or Plasma 136 mEq/L 134 - 153 [facility] Potassium [Moles/volume] in Serum or Plasma 3.8 mEq/L 3.6 - 5.0 [facility] Chloride [Moles/volume] in Serum or Plasma 101 mEq/L 98 - 107 [facility] Carbon dioxide, total [Moles/volume] in Serum or Plasma 25 MEQ/L 22 - 30 [facility] Glucose [Mass/volume] in Serum or Plasma 118 MG/DL 65 - 110 H [facility] BUN 17 MG/DL 7 - 21 [facility] al Creatinine [Mass/volume] in Serum or Plasma 0.6 MG/DL 0.7 - 1.5 L [facility] BUN/CREAT 28 8 - 27 H [facility] Protein [Mass/volume] in Serum or Plasma 7.0 G/DL 6.3 - 8.2 [facility] Albumin [Mass/volume] in Serum or Plasma 4.4 G/DL 3.9 - 5.0 [facility] Globulin [Mass/volume] in Serum by calculation 2.6 GM/DL 2.4 - 3.2 [facility] A/G RATIO 1.7 0.8 - 2.0 [facility] Calcium [Mass/volume] in Serum or Plasma 9.3 MG/DL 8.4 - 10.2 [facility] Bilirubin.total [Mass/volume] in Serum or Plasma 0.7 MG/DL 0.2 - 1.3 [facility] Alkaline phosphatase [Enzymatic activity/volume] in Serum or Plasma 95 U/L 38 - 126 [facility] Aspartate aminotransferase [Enzymatic activity/volume] in Serum or Plasma 29 U/L 5 - 40 [facility] Alanine aminotransferase [Enzymatic activity/volume] in Seru m or Plasma 39 U/L 7 - 56 [facility] Anion gap 3 in Serum or Plasma 10.0 mmol/L 8.0 - 16.0 [facility] AGE 20 yrs [facility] al NON-AA GFR >60 mL/min [facility]osp ital AFR AMER GFR >60 mL/min [facility] Ho spital Male GFR In terprentation [...] >32 mL/min Normal ID Date Data Source [id number] 02/29/2020 10:11:00 PM EDT [facility] Name Value Range Interpretation Code Description Data Shira rce(s) Supporting Document(s) CBC W/AUTOMATED DIFF [facility] COMPLETE BLOOD COUNT Leukocytes [#/volume] in Blood by Automated count 12.6 10^3/uL 4.2 - 11.0 H [facility] Erythrocytes [#/volume] in Blood by Automated count 4.35 10^6/uL 4. 20 - 5.40 [facility] Hemoglobin [Mass/volume] in Blood 13.2 g/dL 12.0 - 16.0 [facility] Hematocrit [Volume Fraction] of Blood by Automated count 39.2 % 3 7.0 - 47.0 [facility] Erythrocyte mean corpuscular volume [Entitic volume] by Auto mated count 90.1 fL 81.0 - 101 [facility] Erythrocyte mean corpuscular hemoglobin [Entitic mass] by Automated count 30.3 pg 27.0 - 34.0 [facility] Erythrocyte mean corpuscular hemoglobin concentration [Mass/volume] by Automated count 33.7 g/dL 31.0 - 36.0 [facility] Erythrocyte distribution width [Ratio] by Automated count 11.7 % 11.5 - 14.5 [facility] Platelets [#/volume] in Blood by Automated count 373 10^3/uL 150 - 45 0 [facility] Platelet mean volume [Entitic volume] in Blood by Automated count 8.7 fL 7.4 - 10.4 [facility] Neutrophils/100 leukocytes in Blood by Automated count 67.0 % 37. 0 - 80.0 [facility] Lymphocytes/100 leukocytes in Blood by Manual count 22.8 % 25.0 - 40.0 L [facility] Monocytes/100 leukocytes in Blood by Automated count 7.6 % 3.0 - 8.0 [facility] Eosinophils/100 leukocytes in Blood by Automated count 1.9 % 0.0 - 7.0 [facility] Basophils/100 leukocytes in Blood by Automated count 0.5 % 0.0 - 2.5 [facility] %IG 0.2 % 0.0 - 0.0 [facility] %NRBC 0.0 % 0.0 - 0.0 [facility] al Neutrophils [#/volume] in Blood by Automated count 8.45 10^3/uL 2.00 - 6.90 H [facility] Lymphocytes [#/volume] in Blood by Automated count 2.87 10^3/uL 0.60 - 3.40 [facility] Monocytes [#/volume] in Blood by Automated count 0.96 10^3/uL 0.00 - 0.90 H [facility] Eosinophils [#/volume] in Blood by Automated count 0.24 10^3/uL 0.00 - 0.70 [facility] Basophils [#/volume] in Blood by Automated count 0.06 10^3/uL 0.00 - 0.20 [facility] #IG 0.03 10^3/uL 0.00 - 0.10 [facility] ospital #NRBC 0.00 10^3/uL 0.00 - 0.00 [facility] MANUAL DIFF NOT INDICATED [facility] RBC MORPH NOT INDICATED [facility] spital ID Date Data Source [id number] 02/09/2020 11:06:00 PM EDT [facility] 1 OrderSheet [facility] Emergency Department [address] [place] [address] Phone #: [phone] ext- [phone] 02/09/2020 23:06 Patient: SCARLET SOLOMON Sex: F [...] RN Physician;Blood Culture STAT 23:36 02/09/2020 23:44 [id number] X2 (Sched Torrey Yu RN23:36 02/09/2020) Physicia n;Blood Culture STAT 23:36 02/09/2020 00:23 02/10/2020q10m X2 (Sched Torrey Yu RN23:46 02/09/2020) Physician;DIAGNOSTIC STUDY ORDERSOrder Description Priority Entered Acknowledged InitialedCT ABD PEL W/O STAT 00:28 02/10/2020 00:33 StevenOral W/O TEMITOPE Yu RNContrast Physician;(Oxygen?(No)) 2 OrderSheet [facility] Emergency Department [address] [place] [address] Phone #: ext- [phone] 02/09/2020 23:06 Patient: [...] Ack'd: 01:41 Marti 01:48 Marti Yu R.N. Physician;Genoa (5-325mg) 01:36 02/10/2020 Ack'd: 01:41 Marti 01:48 Marti Santa 1 tab (HIGH Torrey Yu RElderNElder Yu RFrankoALERT Physician;MEDICATION)GENERAL ORDERSOrder Description Priority Entered Acknowledged Initialed[Electronically signed by Torrey Arevalo Physician (01:45 02/10/2020)][Electronically signed by Marti Porter R.N. (07:19 02/10/2020)][Electronically locked by Marti Porter R.N. (07:19 02/10/2020)] Name Value Range Interpretation Code Description Data Shira rce(s) Supporting Document(s) ID Date Data Source [id number] 02/09/2020 11:06:00 PM EDT [facility] 1 Medication Reconciliation Report [facility] Emergency Department [address] [place] [address] Phone #: [phone] khh- [phone] 02/09/2020 23:06 Patient: SCARLET SOLOMON Sex: F [...] Dispense 18 tablet. Refills: 0. Substitution permitted.Pharmacy [facility] [phone] ; [place] [address]. .Cipro 500 mg tablet Take 1 tablet twice a day for 7 days -- Dispense 14 tablet. Refills: 0. Substitutionpermitted.[facility] [phone] ; [place] [address]. . -- Torrey Arevalo, Physician Name Value Range Interpretation Code Description Data Shira rce(s) Supporting Document(s) ID Date Data Source [id number] 02/09/2020 11:06:00 PM EDT [facility] 1 Medication Administration Record [facility] Emergency Department [address] [place] [address] Phone #: ext- [phone] 02/09/2020 23:06 Patient: [...] 500 mg01:43 02/10/2020 Dose: 500 mg Tablets POTina Jay Yu R.N.Given NORCO (5-325MG) [PO] Genoa (5-325mg) PO 1 tab (HIGH01:43 02/10/2020 (ACETAMINOPHEN- HYDROCODONE) ALERT MEDICATION)Marti Jay Gigi, R.N. Dose: 1 tab 5/325 mg Tablets PO Name Value Range Interpretation Code Description Data Shira rce(s) Supporting Document(s) ID Date Data Source [id number] 02/09/2020 11:06:00 PM EDT [facility] 1 General Instructions [facility] Emergency Department [address] [place] [address] Phone #: ext- [phone] 02/09/2020 23:06 Patient: SCARLET SOLOMON Sex: F : 2000 Age: 20yUreterolithiasis (single stone) on the right.Acute urinary tract infection with cystitis. No hematuria.INSTRUCTIONSDrink plenty of fluids. No alcohol.(Strain urine. Use back up form of control for this and next cycle).Warnings: Further evaluation is necessary (Urology consultation.). It is very [facility].SEDATIVE MEDICATION: You were given sedative medication [...] 18 tablet. Refills: 0. Substitution permitted.Pharmacy - [facility] [phone] ; [place] [address]. .Cipro 500 mg tablet Take 1 tablet twice a day for 7 days -- Dispense 14 tablet. Refills: 0. Substitutionpermitted.[facility] [phone] ; [place] [address]. .Und erstanding of the discharge instructions verbalized by patient.Follow-up with: [facility] Respective Team Luci BAEZ, , , [address], , [place], [address] Follow up Tuesday in two days. Call for an appointment. Reason for referral: evaluation and treatment.Summary of care provided to patient and family via paper. 2 General Instructions [facility] Emergency Department [address] [place] [address] Phone #: ext- [phone] 02/09/2020 23:06 Patient: [...] Urgent need to urinate 3 General Instructions [facility] Emergency Department [address] [place] [address] Phone #: [phone] yuw- [phone] 02/09/2020 23:06 Patient: SCARLET SOLOMON Sex: F [...] a diaphragm for controlTreatment 4 General Instructions [facility] Emergency Department [address] [place] [address] Phone #: ext- [phone] 02/09/2020 23:06 Patient: [...] you have repeat infections. 5 General Instructions [facility] Emergency Department [address] [place] [address] Phone #: ext- [phone] 02/09/2020 23:06 Patient: SCARLET SOLOMON Sex: F : 2000 Age: 20yIf a culture was done, you will be told if your treatment needs to be changed. If directed, you cancall to find out the results.If X-rays were done, you will be told if the results will affect your treatment.Call 911Call 911 if any of the following [...] swelling in the outer vaginal area (labia) [phone] [employer]. [address] [place] [address], [place] [address]. All rights reserved. This information is not intended as asubstitute for professional medical care. Always follow your healthcare professional's instructions. You have been given the following additional information: Bladder Infection, Female (Adult)(Electronically signed by Torrey Arevalo, Physician 02/10/2020 01:45) 6 General Instructions [facility] Emergency Department [address] [place] [address] Phone #: ext- [phone] 02/09/2020 23:06 Patient: SCARLET SOLOMON Sex: F : 2000 Age: 20y Name Value Range Interpretation Code Description Data Shira rce(s) Supporting Document(s) ID Date Data Source [id number] 02/09/2020 11:06:00 PM EDT [facility] 1 Clinical Report - Nurses [facility] Emergency Department [address] [place] [address] Phone #: ext- [phone] 02/09/2020 23:06 Patient: SCARLET SOLOMON Sex: F : 2000 Age: 20yTRIAGEArrived by private vehicle. Historian: patient. Accompanied by friend.Triage time: 23:10 02/09/2020. Acuity: LEVEL 3.Chief Complaint: ABDOMINAL PAIN.Onset was gradual. Symptoms are constant and still present (3 days ago). She has had mild nausea andabdominal pain. The pain is described as located in the RLQ. ( urinating difficulties, small amounts).Treatment SEXUAL ABUSE COUNSELLOR:None.SEPSIS SCREEN: Sepsis Screen negative. No suspected or confirmed signs of infection present. --23:156 Heath Yu RN23:10 02/09/20. BP: 138/84 (regular adult cuff) taken on the right arm, via an automated monitor, whilelying. MAP: 102. HR: 101 (regular, normal rate and strong). RR: 16 (regular, unlabored and normal). V4egehoqvezw: 100% on room air. Temp: 97.6 F [...] 2020. Uses 2 Clinical Report - Nurses [facility] Emergency Department [address] [place] [address] Phone #: ext- [phone] 02/09/2020 23:06 Patient: SCARLET SOLOMON Sex: F [...] Saline lock 3 Clinical Report - Nurses [facility] Emergency Department [address] [place] [address] Phone #: kcy- [phone] 02/09/2020 23:06 Patient: SCARLET SOLOMON Sex: F [...] Mooreatient transported to sonogram by wheelchair with residential appliance repair technician. --00:18 02/10/20 Heath Yu RNCharted On Wrong Patient --00:34 02/10/20 ARIANNA Mooreatient transported to CT by wheelchair with residential appliance repair technician. --00:34 02/10/20 ARIANNA Mooreatidonny returned from CT by wheelchair with residential appliance repair technician. --00:43 02/10/20 Heath Yu RN( Lactic Acid result 0.9 reported to ED from LAB which was a send out to [facility]. notified.). --01: Marti Yu R.N.01:43 02/10/2020 Cipro (Ciprofloxacin) PO Tablets 500 mg given. Allergies verified and confirmed 5 rights.Information reviewed with patient including reason for taking this medication. Verbalizes understanding.--01:48 02/10/20 Kumar WoodN.01:43 02/10/2020 NORCO (5- 325MG) (Acetaminophen-HYDROcodone) PO 5/325 [...] Yu R.N. 4 Clinical Report - Nurses [facility] Emergency Department [address] [place] [address] Phone #: ext- [phone] 02/09/2020 23:06 Patient: SCARLET SOLOMON Sex: F : 2000 Age: 20yDISPOSITION / DISCHARGE Condition at departure: improved and stable. No learning barriers present. Reviewed medication(s). Prescription(s) sent electronically to pharmacy. Patient verbalized understanding. Written instructions provided in Russian. The patient was discharged by the physician. She was discharged home and accompanied by argon tester. She left ambulatory and via private vehicle. Project Drilling Engineer driving. --01:50 02/10/20 Marti Yu R.N. 01:49 02/10/20. BP: 138/72. MAP: 94. HR: 81. RR: 16. O2 saturation: 99%. Temp: 98.7 F. Pain level now: 10/22. --01:50 02/10/20 Marti Yu R.N. Departure time: 01:57 02/10/2020. --01:57 02/10/20 Marti Yu R.N.Locked/Released at 02/10/2020 07:19 by Marti Yu R.N. Name Value Range Interpretation Code Description Data Shira rce(s) Supporting Document(s) ID Date Data Source [id number] 02/09/2020 11:06:00 PM EDT [facility] 1 Clinical Report - Physicians/Mid Levels [facility] Emergency Department [address] [place] [address] Phone #: ext- [phone] 02/09/2020 23:06 Patient: [...] HISTORY 2 Clinical Report - Physicians/Mid Levels [facility] Emergency Department [address] [place] [address] Phone #: ext- [phone] 02/09/2020 23:06 Patient: [...] ABD //T// PELV W/O ORAL W/O IV [address] [address] ---------NAME--------- NUMBER SEX AGE ADMIT DISC. XRAY# F/C TYPE JUANITO Waddell [id number] F 20 02/09/201969894517 E/R DATE OF : 2000 M/R# [id number] #: [phone] TR-05 LOCATION: TRANSCRIBED: 02/10/20 1:[address] ABD //T// PELV W/O ORAL W/[place] [id number] COMPLETED:02/10/20 44 KJE [id number] Reason(s): Abdominal Pain PHYSICIAN: LUISANA SOLO R A D I O L O G Y R E P O R T 3 Clinical Report - Physicians/[facility] Emergency Department [address] [place] [address] Phone #: ext- [phone] 02/09/2020 23:06 Patient: SCARLET SOLOMON Sex: F : 2000 Age: 20yPATIENT HISTORY:Abdominal Pain ACC DLP- 917.5mGy*cmPT NEG BETA. VERIFIED 2 IDENTIFIERS. [facility] / ABD/PEL (DICOM Hx)EXAM: CT Abdomen [...] as 4 Clinical Report - Physicians/Mid Levels [facility] Emergency Department [address] [place] [address] Phone #: ext- [phone] 02/09/2020 23:06 Patient: SCARLET SOLOMON Sex: F [...] NEGATIVE (NORMAL: NEGAT { KIT LOT # [id number] ){ KIT EXP [id number] ){ PROCEDURAL CONTROL VALID)CBC w Diff: (STELLA: [...] results 5 Clinical Report - Physicians/Mid Levels [facility] Emergency Department [address] [place] [address] Phone #: ext- [phone] 02/09/2020 23:06 Patient: [...] Male GFR Interprentation 20-49 yrs >60 mL/min Ozsqgs21-40 yrs >56 mL/min Normal 60-69 yrs >49 mL/min Normal 70-79yrs>42 mL/min Normal 80 and above >35 mL/min Normal Female GFRInterpretation 20-39 yrs >60 mL/min Normal 40-49 yrs >58 mL/minNormal 50-59 yrs >51 mL/min Normal 60-69 yrs >45 mL/min Ujekcj73-44 yrs >39 mL/min Normal 80 and above >32 mL/min NormalLipase: (STELLA: 02/09/2020 23:30) ( [facility] 02/10/2020 00:19) Final results Test Result Flag Units (Reference) LIPASE 49 U/L (13 - 60)Urinalysis: (STELLA: 02/09/2020 23:20) ( [facility] 02/09/2020 23:49) Final results Test Result Flag [...] NONE 6 Clinical Report - Physicians/Mid Levels [facility] Emergency Department [address] [place] [address] Phone #: ext- [phone] 02/09/2020 23:06 Patient: [...] tablet. Refills: 0. Substitution permitted. Pharmacy - [facility] [phone] ; [place] [address]. . Cipro 500 mg tablet Take 1 tablet twice a day for 7 days -- Dispense 14 tablet. Refills: 0. Substitution permitted. Pharmacy - [facility] [phone] ; [place] [address]. . 7 Clinical Report - Physicians/Mid Levels [facility] Emergency Department [address] [place] [address] Phone #: ext- [phone] 02/09/2020 23:06 Patient: SCARLET SOLOMON Sex: F : 2000 Age: 20y Understanding of the discharge instructions verbalized by patient. Follow-up with: [facility] Respective Team Luci BAEZ, , , [address] [facility] [address], , [place], [address] Follow up Tuesday in two days. Call for an appointment. Reason for referral: evaluation and treatment. Summary of care provided to patient and family via paper.(Electronically signed by Torrey Arevalo, Physician 02/10/2020 01:45) Name Value Range Interpretation Code Description Data Shira rce(s) Supporting Document(s) ID Date Data Source [id number] 02/10/2020 01:25:00 [place] [address] ---------NAME--------- NUMBER SEX AGE ADMIT DISC. XRAY# F/C TYPE JUANITO Waddell [id number] F 20 02/09/20 [id number] E/R DATE OF : 2000 M/R# [id number] #: [id number] TR-05 LOCATION: TRANSCRIBED: 02/10/20 1:[address] ABD //T// PELV W/[place] ORAL W/[place] [id number] COMPLETED:02/10/[address] [facility] [address] Reason(s): Abdominal Pain PHYSICIAN: LUISANA SOLO R A D I O L O G Y R E P O R T PATIENT HISTORY:Abdominal Pain ACC DLP- 917.5mGy*cmPT NEG BETA. VERIFIED 2 IDENTIFIERS. SENT TO [facility]. KJE / ABD/PEL (DICOM Hx)EXAM: CT Abdomen [...] rce(s) Supporting Document(s) ID Date Data Source [id number] 02/15/2020 11:58:00 AM EDT [facility] [address] Name Value Range Interpretation Code Description Data Shira rce(s) Supporting Document(s) Bacteria identified in Blood by Culture [facility] NO GROWTH AFTER 5 DAYS ID Date Data Source [id number] 02/15/2020 01:39:00 PM EDT [facility] Name Value Range Interpretation Code Description Data Shira rce(s) Supporting Document(s) CULTURE BLOOD [facility] spital _CULTURE BLOOD_{ [place] [address] CLIA# [id number] SEE SCANNED REPORT ID Date Data Source [id number] 02/15/2020 11:58:00 AM EDT [facility] [address] Name Value Range Interpretation Code Description Data Shira rce(s) Supporting Document(s) Bacteria identified in Blood by Culture [facility] NO GROWTH AFTER 5 DAYS ID Date Data Source [id number] 02/10/2020 01:20:00 AM EDT [facility] Called/Faxed results at 0125 to Beth (Pushpa CRUZ)..TK 02/10/2020 Name Value Range Interpretation Code Description Data Shira rce(s) Supporting Document(s) Lactic w Rfx (if elevated) 0.9 mmol/L 0.5-2.2 N [facility] ID Date Data Source [id number] 02/15/2020 01:38:00 PM EDT [facility] Name Value Range Interpretation Code Description Data Shira rce(s) Supporting Document(s) CULTURE BLOOD [facility] spital _CULTURE BLOOD_{ PRELIM TEST PERFORMED AT [address] [address] CLIA# [id number] SEE SCANNED REPORT ID Date Data Source [id number] 02/10/2020 01:57:00 AM EDT [facility] Name Value Range Interpretation Code Description Data Shira rce(s) Supporting Document(s) LACTIC ACID (LACTATE) [facility] TEST PERFORMED AT [address] [address] CLIA# [id number] SEE SCANNED REPORT ID Date Data Source [id number] 02/10/2020 12:32:00 AM EDT [facility] Name Value Range Interpretation Code Description Data Shira rce(s) Supporting Document(s) CBC W/AUTOMATED DIFF [facility] COMPLETE BLOOD COUNT Leukocytes [#/volume] in Blood by Automated count 12.6 10^3/uL 4.2 - 11.0 H [facility] Erythrocytes [#/volume] in Blood by Automated count 4.66 10^6/uL 4. 20 - 5.40 [facility] Hemoglobin [Mass/volume] in Blood 14.1 g/dL 12.0 - 16.0 [facility] Hematocrit [Volume Fraction] of Blood by Automated count 42.2 % 3 7.0 - 47.0 [facility] Erythrocyte mean corpuscular volume [Entitic volume] by Auto mated count 90.6 fL 81.0 - 101 [facility] Erythrocyte mean corpuscular hemoglobin [Entitic mass] by Automated count 30.3 pg 27.0 - 34.0 [facility] Erythrocyte mean corpuscular hemoglobin concentration [Mass/volume] by Automated count 33.4 g/dL 31.0 - 36.0 [facility] Erythrocyte distribution width [Ratio] by Automated count 11.7 % 11.5 - 14.5 [facility] Platelets [#/volume] in Blood by Automated count 353 10^3/uL 150 - 45 0 [facility] Platelet mean volume [Entitic volume] in Blood by Automated count 8.7 fL 7.4 - 10.4 [facility] Neutrophils/100 leukocytes in Blood by Automated count 64.2 % 37. 0 - 80.0 [facility] Lymphocytes/100 leukocytes in Blood by Manual count 23.0 % 25.0 - 40.0 L [facility] Monocytes/100 leukocytes in Blood by Automated count 10.4 % 3.0 - 8.0 H [facility] Eosinophils/100 leukocytes in Blood by Automated count 1.7 % 0.0 - 7.0 [facility] Basophils/100 leukocytes in Blood by Automated count 0.4 % 0.0 - 2.5 [facility] %IG 0.3 % 0.0 - 0.0 [facility] %NRBC 0.0 % 0.0 - 0.0 [facility] al Neutrophils [#/volume] in Blood by Automated count 8.10 10^3/uL 2.00 - 6.90 H [facility] Lymphocytes [#/volume] in Blood by Automated count 2.90 10^3/uL 0.60 - 3.40 [facility] Monocytes [#/volume] in Blood by Automated count 1.31 10^3/uL 0.00 - 0.90 H [facility] Eosinophils [#/volume] in Blood by Automated count 0.21 10^3/uL 0.00 - 0.70 [facility] Basophils [#/volume] in Blood by Automated count 0.05 10^3/uL 0.00 - 0.20 [facility] #IG 0.04 10^3/uL 0.00 - 0.10 [facility]spital #NRBC 0.00 10^3/uL 0.00 - 0.00 [facility] MANUAL DIFF SEE BELOW [facility] Segmented neutrophils/100 leukocytes in Blood by Manual count 64 % 37 - 80 [facility] BAND 1 % 0 - 5 [facility] %LYMPH 29 % 25 - 40 [facility] %MONO 6 % 3 - 8 [facility] RBC MORPH MORPH IS NORMAL [facility] ID Date Data Source [id number] 02/10/2020 12:19:00 AM EDT [facility] Name Value Range Interpretation Code Description Data Shira rce(s) Supporting Document(s) Lipase [Enzymatic activity/volume] in Serum or Plasma 49 U/L 13 - 60 [facility] ID Date Data Source [id number] 02/10/2020 12:19:00 AM EDT [facility] Name Value Range Interpretation Code Description Data Shira rce(s) Supporting Document(s) COMPREHENSIVE METABOLIC PANEL [facility] COMPREHENSIVE METABOLIC PANEL Sodium [Moles/volume] in Serum or Plasma 138 mEq/L 134 - 153 [facility] Potassium [Moles/volume] in Serum or Plasma 3.9 mEq/L 3.6 - 5.0 [facility] Chloride [Moles/volume] in Serum or Plasma 103 mEq/L 98 - 107 [facility] Carbon dioxide, total [Moles/volume] in Serum or Plasma 26 MEQ/L 22 - 30 [facility] Glucose [Mass/volume] in Serum or Plasma 105 MG/DL 65 - 110 [facility] BUN 13 MG/DL 7 - 21 [facility] Creatinine [Mass/volume] in Serum or Plasma 0.7 MG/DL 0.7 - 1.5 [facility] BUN/CREAT 19 8 - 27 [facility] Protein [Mass/volume] in Serum or Plasma 7.7 G/DL 6.3 - 8.2 [facility] Albumin [Mass/volume] in Serum or Plasma 4.4 G/DL 3.9 - 5.0 [facility] Globulin [Mass/volume] in Serum by calculation 3.3 GM/DL 2.4 - 3.2 H [facility] A/G RATIO 1.3 0.8 - 2.0 [facility] Calcium [Mass/volume] in Serum or Plasma 9.2 MG/DL 8.4 - 10.2 [facility] Bilirubin.total [Mass/volume] in Serum or Plasma <0.7 MG/DL 0.2 - 1.3 [facility] Alkaline phosphatase [Enzymatic activity/volume] in Serum or Plasma 107 U/L 38 - 126 [facility] Aspartate aminotransferase [Enzymatic activity/volume] in Serum or Plasma 30 U/L 5 - 40 [facility] Alanine aminotransferase [Enzymatic activity/volume] in Seru m or Plasma 31 U/L 7 - 56 [facility] Anion gap 3 in Serum or Plasma 9.0 mmol/L 8.0 - 16.0 [facility]GE 20 [facility] GFR >60 mL/min [facility] AFR AMER GFR >60 mL/min [facility] sp[facility] Male GFR In terprentation [...] >32 mL/min Normal ID Date Data Source [id number] 02/14/2020 03:27:00 PM EDT [facility] Name Value Range Interpretation Code Description Data Shira rce(s) Supporting Document(s) CULTURE URINE [facility] sp[facility] _CULTURE URINE_$$[id number]$$[id number]$$[id number]$$387774$$502242$$422051$$070170$$533848$$373721$$ 588135$$736804$$326760$$782561$$503066$$404466$$465719$$011338$$359158$$633996$$ 042213$$514545$$538187$$551482$$772387$$659852$$687837$$240290 -- Continued on next page --Patient: JUANITO Waddell Order: [id number] Page 2Culture: CULTURE URINE Status: Final ==== -- Continued on next page --Patient: JUANITO Waddell Order: [id number] Page 2Culture: CULTURE URINE Status: Prelim =====$$[id number]$$[id number] DATE/TIME: 02/14/2020 15:06Culture: CULTURE URINE Status: FinalIsolate 1 Escherichia coli Flag: A . . . . . . .150,000-100,000 colony forming units per mLSusceptibility profile is consistent with a probable ESBL. Previous result entered on 02/13/2020 04:07 ET Escherichia coliUrine Culture,Comprehensive: [id number] coli Flag: APatient: JUANITO Waddell Order: [id number] Page 3Culture: CULTURE URINE Status: Final ISOLATE [...] S S . . . . . .17508- 0Gentamicin S S . . . . . .267-5Imipenem S S . . . . . .279-0Levofloxacin S S . . . . . .04776-4Juobigdsq S S . . . . . .6652-2Nitrofurantoin S S . . . . . .363- 2Piperacillin/Tazobactam S S . . . . . .412-7Tetracycline R R . . . . . .496-0Tobramycin S S . . . . . .508-2Trimethoprim/Sulfa R R . . . . . .516-5P1 [facility] #: [id number] [address] [place] [address] [id number] [facility] [id number] Director : Keith Hollis MD NPI #:Digital Archivist : 02/13/[email or web address].SENT REF 02/14/20.1528.XMT.SENT REF 02/14/20.1536.XMT.SENT REF ID Date Data Source [id number] 02/09/2020 11:49:00 PM EDT [facility] Name Value Range Interpretation Code Description Data Shira rce(s) Supporting Document(s) URINALYSIS [facility] yulia URINALYSIS SOURCE R [facility] COLOR yellow NORMAL: Yellow [facility] CLARITY turbid NORMAL: Clear [facility] Specific gravity of Urine by Test strip 1.010 1.001 - 1.030 [facility] pH 7 5 - 9 [facility] Glucose [Mass/volume] in Urine by Test strip NORM NORMAL: Negat [facility] Bilirubin.total [Presence] in Urine by Test strip NEG NORMAL: Negative [facility] Ketones [Presence] in Urine by Test strip NEG NORMAL: Negative [facility] Protein [Mass/volume] in Urine by Test strip 30 NORMAL: Negat [facility] Nitrite [Presence] in Urine by Test strip POS NORMAL: Negative [facility] BLOOD 50 NORMAL: Negative A [facility] Leukocyte esterase [Presence] in Urine by Test strip 500 MAURIZIO L: Negative [facility] Urobilinogen [Mass/volume] in Urine by Test strip NOR less rocky n 1.0 mg/dL [facility] MICROSCOPIC See Below [facility] WBC 10 - 15 NORMAL: NONE SEEN A [facility] Erythrocytes [#/volume] in Urine by Test strip 7 - 10 NORMAL: NON E SEEN A [facility] EPITHELIAL MODERATE NORMAL: NONE SEEN A [facility] Bacteria [Presence] in Urine sediment by Light microscopy 1+ SMALL NORMAL: NONE SEEN [facility] ID Date Data Source [id number] 02/09/2020 11:46:00 PM EDT [facility] Name Value Range Interpretation Code Description Data Shira rce(s) Supporting Document(s) HCG URINE QUAL NEGATIVE NORMAL: NEGATIVE [facility] HCG URINE QL REENTER NEGATIVE NORMAL: NEGATIVE [facility] { KIT LOT # [id number] ){ KIT EXP DATE 05-27-21 ){ PROCEDURAL CONTROL VALID ) Procedure Vital Signs ID Date Data Source UNK Name Value Range Interpretation Code Description Data Source(s) Body surface area Derived from formula 2.[address] [facility] ([facility]) Body mass index (BMI) [Ratio] 33.9 kg/m2 33.9 k g/m2 [facility] ([facility]) Body height 66 [in_i] 66 [in_i] [facility] ([facility]) 5'6" Body weight 95.256 kg 95[address] [facility] ([facility]) Body weight 210.00 [lb_av] 210.00 [lb_av] [facility] ([facility]) Oxygen saturation in Arterial blood by Pulse oximetry 98 % 98 % [facility] ([facility]) Respiratory rate 16 /min 16 /min [facility] ( [facility]) Body temperature 98.0 [degF] 98.0 [degF] [facility] ([facility]) Heart rate 96 /min 96 /min [facility] ([facility]) Diastolic blood pressure 85 mm[Hg] 85 mm[Hg] [facility] ([facility]) Systolic blood pressure 134 mm[Hg] 134 mm[facility]Hg] [facility]
[2020-09-11] MEDS ORDERED: MAALOX 30 ML SUSP *UDC PO PRN (13:30)
[2020-09-11] MEDS ORDERED: MOM 30ML SUSPENSION UDC PO PRN (13:30)
[2020-09-11] MEDS ORDERED: IBUPROFEN 400 MG TAB PO PRN (13:30)
[2020-09-11] MEDS ORDERED: OLANZapine ORAL DISINTEGRATING TAB 5MG PO PRN (13:30)
[2020-09-11] MEDS ORDERED: hydrOXYzine 25 MG TAB PO PRN (13:30)
--- OUTSIDE RECORDS SUMMARY | 2020-09-11 14:32 | CCD ---
Author Author [facility] Organization [facility] Address Unknown Phone Unavailable Care Team Providers Care Shoe Clerk Name Role Phone Hood RAMIREZ MD Unavailable [...] T BAR MD Unavailable Unavailable OBEN, T ABR MD Unavailable Unavailable OBEN, T BAR MD [...] Unavailable Tiffany SALDANA MD Unavailable Unavailable Carmella FAUSTIN MD Unavailable Unavailable Carmella FAUSTIN MD Unavailable Unavailable Carmella FAUSTIN MD Unavailable Unavailable Carmella FAUSTIN MD Unavailable Unavailable Carmella FAUSTIN MD Unavailable Unavailable Carmella FAUSTIN MD Unavailable Unavailable Carmella FAUSTIN MD Unavailable Unavailable Carmella FAUSTIN MD Unavailable Unavailable Carmella FAUSTIN MD Unavailable Unavailable LUISANA, F TORREY DO [...] is protected by Article 27-F of the [facility] Public Health law. If you continue you may have access to information: Regarding HIV / AIDS; Provided by facilities licensed or operated by the [facility] Office of Mental Health; or Provided by the [facility] Office for People With Developmental Disabilities. If such information is present, then the following [facility] mandated warning applies: This information has been [...] law may result in a fine or halfway sentence or both. A general authorization for the release of medical or other information is NOT sufficient authorization for further disc losure. Encounters Encounter Providers Location Date Indications Data Source(s ) Emergency Attender: BENEDICT LUQUEConsultant: EV RAMSAY 09/10/2020 03:48:00 PM EST - 09/11/2020 01:54:00 AM [facility] Patient discharged. Outpatient Attender: ABR RAMIREZ MD 08/27/19 01:57:00 PM EST - 08/27/2020 01:57:00 PM [facility] Outpatient Attender: BAR RAMIREZ MD [facility] 08/27/2020 01:00:0 0 PM EST [facility] ([facility]) Emergency Attender: TORREY AREVALO DO 2019 07:16:00 PM EST - 06/21/2020 10:04:00 PM [facility] Patient discharged. Emergency Attender: MAURIZIO SALDANA MD 2019 02:47:00 PM EST - 06/19/2020 06:18:00 PM [facility] Patient discharged. Emergency Attender: BENEDICT LUQUE 2019 10:19:00 PM EST - 06/17/2020 01:20:00 AM [facility] Patient discharged. Outpatient 05/16/2020 09:50:00 AM EDT [facility] Emergency Attender: SAMIR FAUSTIN MD 05/16 09:17:00 AM EDT - 05/16/2020 11:45:00 AM EDT [facility] Patient discharged. Emergency Attender: SAMIR FAUSTIN MD 02/28 09:35:00 PM EDT - 03/01/2020 12:57:00 AM EDT [facility] Patient discharged. Outpatient 02/10/2020 12:15:00 AM EDT [facility] Outpatient 02/09/2020 11:40:00 PM EDT [facility] Emergency Attender: TORREY AREVALO 2019 11:06:00 PM EDT - 02/10/2020 01:57:00 AM EDT [facility] Patient discharged. Insurance Providers Payer name Policy type / Coverage type Policy ID Covered constitution party ID Covered constitution party's relationship to maradiaga Policy Maradiaga Plan Information [facility] [place] DUTY [id number] SP [id number] [employer] [facility] - O/P [id number] 18 [id number] [facility] [facility] [place] [id number] 18 [id number] ANSI-Not a Secondary Insurance [id number] 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 Diagnosis 06/21/2020 07:16:00 PM [facility] R1031 Right lower quadrant pain Right lower quadrant pain Di agnosis 06/21/2020 07:16:00 PM [facility] N390 Urinary tract infection, site not specif ied Urinary tract infection, site not specified Diagnosis 06/16/2020 10:19:00 PM [facility] N10 Acute pyelonephritis Acute pyelonephritis Diagnosis 06/16/2020 10:19:00 PM [facility] R109 Unspecified abdominal pain Unspecified abdominal pain Diagnosis 06/16/2020 10:19:00 PM [facility] R197 Diarrhea, unspecified Diarrhea, unspecified Diagnosis 05/16/2020 09:17:00 AM EDT [facility] N3001 Acute cystitis with hematuria Acute cystitis with gladis turia Diagnosis 05/16/2020 09:17:00 AM EDT [facility] N04607 Personal history of urinary (tract) infe ctions Personal history of urinary (tract) infections Diagnosis 02/29/2020 09:35:00 PM EDT [facility] N3000 Acute cystitis without hematuria Acute cystitis without hematuria Diagnosis 02/29/2020 09:35:00 PM EDT [facility] K66184 Tension-type headache, unspecified, not intractable Tension-type headache, unspecified, not intractable Diagnosis 02/29/2020 09:35:00 P M EDT [facility] N201 Calculus of ureter Calculus of ureter Diagnosis 0 11:06:00 PM EDT [facility] R1011 Right upper quadrant pain Right upper quadrant pain Di agnosis 02/09/2020 11:06:[address] [facility] Results ID Date Data Source [id number] 09/11/2020 10:10:00 AM EST [facility] [address] [place] [address] PHONE: [phone] FAX: [phone] Name .................. : JUANITO Waddell Acct Number.................. : [id number] ROOM. ................. : TR-02 Number ................... : [id number] Stay type ............. : E/R Discharge Date......... ... : Admit Date ......... : 09/10/20 Admit Phys .................... : DAVID GRACE Date of ....... : 2000 Family Phys ................... : UNKNOWN CO Phone .................. : [phone] Age ................................ : 20 Film# .................. .:[id number] Sex ................................. : F Unsigned transcriptions are preliminary reports and do not represent a medical or legal document CHEST PORTABLE [id number] COMPLETE:09/10/20 20:13 KJE 3083 Reason(s): Overdose PORTABLE CHEST X-RAY: INDICATION: Overdose. FINDINGS: The cardiac and mediastinal silhouettes appear normal and the lungs are clear. The bones and soft tissues are normal. The upper abdomen is unremarkable. IMPRESSION: No acute disease identifiable. Electronically Reviewed and Signed By Thai Moy MD , 09/11/20 10:10, MRA Transcribe Initials: BENJAMIN , Transcribe Date: 09/10/20 22:46, Dictation Date: Copy for: EMERGENCY DEPT via modem Copy for: 710 MED REC DISCHARGED Page 1 of 1 Name Value Range Interpretation Code Description Data Shira rce(s) Supporting Document(s) ID Date Data Source [id number] 09/10/2020 03:48:00 PM EST [facility] 1 OrderSheet [facility] Department [address] [place] [address] Phone #: ext- [phone] 09/10/2020 15:40 Patient: SCARLET SOLOMON Sex: F : 2000 Age: 20yWEIGHT:104.4 kg HEIGHT:66 inches BMI:37.2ALLERGIES: No Known Drug AllergyCHIEF COMPLAINT: drug overdoseDIAGNOSIS: Poisoning by drug AND/OR medicinal substance, Depressive disorder, Suicide attempt, Urinarytract infectious diseaseLAB ORDERSOrder Description Priority Entered Acknowledged InitialedCBC w Diff STAT 15:59 09/10/2020 16:02 Karma Eddy Riccardo R.N. M.D.;CMP STAT 15:59 09/10/2020 16:02 Karma Eddy Riccardo R.N. M.Rico.;TSH STAT 15:59 09/10/2020 16:02 Karma Eddy Riccardo R.N. M.D.;Urine Drug Screen STAT 15:59 09/10/2020 16:02 Karma Eddy Riccardo R.N. M.D.;Acetaminophen STAT 15:59 09/10/2020 16:02 Bety Eddy Riccardo R.N. M.Rico.;Salicylate Level STAT 15:59 09/10/2020 16:02 Karma Eddy Riccardo R.N. M.D.;ETOH STAT 15:59 09/10/2020 16:02 Karma Eddy Riccardo R.N. M.D.;Urinalysis (Clean STAT 15:59 09/10/2020 16:02 Myron Eddy Riccardo R.N. Soumya;Venous Blood Gas STAT 15:59 09/10/2020 16:02 Karma Eddy Riccardo R.N. M.D.;Beta-HCG, Qual STAT 15:59 09/10/2020 16:02 Robin Eddy Riccardo R.N. MElderDEldre; 2 OrderSheet [facility] [address] [place] [address] Phone #: ext- [phone] 09/10/2020 15:40 Patient: SCARLET SOLOMON Sex: F : 2000 Age: 20yCOVID-19 CAH (Not STAT 15:59 09/10/2020 16:11 Jabari Eddyymptomatic as Turrin, Benedict R.N.Defined by [facility]) Soumya;(09/10/2020) (FirstTest) (NotHospitalized) (Not) (NotResident inCongregate CareSetting) (NotEmployed inHealthcare Setting)Culture, Urine STAT 17:14 09/10/2020 17:15 Karma Eddy(Urine, Clean Turrin, Benedict R.N.Catch) Soumya;DIAGNOSTIC STUDY ORDERSOrder Description Priority Entered Acknowledged InitialedChest Portable 1 STAT 15:59 09/10/2020 16:02 Karma EddyView Terririn, Benedict R.N.(Oxygen?(No)) Soumya; Reason for Study: OverdoseMEDICATION/IV/DRIP/FLUID ORDERSOrder Description Priority Entered Acknowledged InitialedNS IV 1000 mL 15:59 09/10/2020 16:06 Karma EddyBolus: : Bolus 1000 Turrin, Benedict R.N.mL (X1) M.D.;Protonix IV Push 40 16:15 09/10/2020 16:25 Karma Eddymg (in 10 mL NS, Turrin, Benedict R.N.administer over at M.D.;least 2 minutes,NOW x1)Macrodantin PO 17:14 09/10/2020 17:20 Karma Eddy100 mg Terririn, Benedict R.N. M.D.;GENERAL ORDERSOrder Description Priority Entered Acknowledged InitialedOne on One 15:59 09/10/2020 16:02 Jabari Eddyupervision Terririn, Benedict R.N. M.D.;NPO 15:59 09/10/2020 16:02 Karma Eddy 3 OrderSheet [facility] [address] [place] [address] Phone #: ext- [phone] 09/10/2020 15:40 Patient: SCARLET SOLOMON Sex: F : 2000 Age: 20y Benedict Luque R.N., M.D.;Saline Lock 15:59 09/10/2020 16:02 Karma Eddy Riccardo R.N. M.D.;Supercharger Repair Supervisor 15:59 09/10/2020 16:02 Karma Eddy(continuous) Benedict Luque R.N., M.D.;EKG 15:59 09/10/2020 16:02 Karma Eddy Riccardo R.N. M.D.;Transfer: 23:25 09/10/2020 00:22 09/11/2020 Benedict Luque Katelyn M.D.;-- (Consult ER MD) 23:09/10/2020 00:22 09/11/2020 Benedict Luuqe Katelyn M.D.;[Electronically signed by Suni Bradford (01:55 09/11/2020)][Electronically signed by Benedict Luque M.D. (02:06 09/11/2020)][Electronically locked by Suni Bradford (01:55 09/11/2020)] Name Value Range Interpretation Code Description Data Shira rce(s) Supporting Document(s) ID Date Data Source [id number] 09/10/2020 03:48:00 PM EST [facility] 1 Medication Reconciliation Report [facility] [address] [place] [address] Phone #: ext- [phone] 09/10/2020 15:40 Patient: [...] 16:06 1PROTONIX [IVP] IVP 40 mg, administered: 16:09/10/2020Macrodantin [PO] PO 100 mg, administered: 17:20 09/10/2020The following Medications were prescribed to the patient:None. Name Value Range Interpretation Code Description Data Shira rce(s) Supporting Document(s) ID Date Data Source [id number] 09/10/2020 03:48:00 PM [facility] 1 Medication Administration Record [facility] [address] [place] [address] Phone #: ext- [phone] 09/10/2020 15:40 Patient: SCARLET SOLOMON Sex: F : 2000 Age: 20yWeight: 104.4 kgHeight/Length: 66 inBMI: 37.2ALLERGIES: No Known Drug Allergy Date/Time Medication Administered Medication OrderedStart IV NS NS IV 1000 mL Bolus: : Bolus 177093:09/10/2020 Dose: IV Fluids mL (X1)Karma Eddy R.N. Bolus: 1000 mL over 1 hour(s)---- Dispensed: 1000 mL bagStop Site: #1 right hand19:00 09/10/2020Suni ragland,Given PROTONIX [IVP] (PANTOPRAZOLE Protonix IV Push [...] rce(s) Supporting Document(s) ID Date Data Source [id number] 09/10/2020 03:48:00 PM EST [facility] 1 General Instructions [facility] [address] [place] [address] Phone #: ext- [phone] 09/10/2020 15:40 Patient: SCARLET SOLOMON Sex: F : 2000 Age: 20yIntentional multi-drug overdose with ibuprofen and OTC sedative.Suicide attempt.Recurrent severe major depressive disorder without psychosis and with suicidal ideation and suicidalattempt.Acute urinary tract infection with cystitis. No hematuria.(Electronically signed by Benedict Luque M.D. 09/11/2020 02:06) Name Value Range Interpretation Code Description Data Shira rce(s) Supporting Document(s) ID Date Data Source [id number] 09/10/2020 03:48:00 PM [facility] 1 Clinical Report - Nurses [facility] [address] [place] [address] Phone #: ext- [phone] 09/10/2020 15:40 Patient: [...] NEGATIVE. No suspected or confirmedsigns of infection present.MARSHALL COMA SCORE: 15- eyes open- spontaneous (4); [...] R.N.The following entry was struck by Benedict Luque M.D., 16:22 (09/10/20) Reason - other. None. [...] or Coronavirus. 2 Clinical Report - Nurses [facility] [address] [place] [address] Phone #: ext- [phone] 09/10/2020 15:40 Patient: SCARLET SOLOMON Sex: F : 2000 Age: 20y SELF [...] PROGRESS NOTES 3 Clinical Report - Nurses [facility] [address] [place] [address] Phone #: ext- [phone] 09/10/2020 15:40 Patient: [...] 09/10/20 Karma Eddy R.N.( Poison control called mortgage loan underwriter spoke to Liss, supportive measures at present and call back when labs a reback). --16:16 09/10/20 Karma Eddy R.N.Patient ID band checked for patient name and birthdate: patient confirmed. COVID-19 specimen obtainedby RN via nasopharyngeal swab. Labeled in the presence of the patient and sent to lab. --16:17 09/10/20Karma Eddy R.N.( dr luque informed of poison control recommendations). --16:17 09/10/20 [...] RR: 14. O2 saturation: 100%. --16:29 09/10/20 Josette Duff ER Tech1( resting at present cooperative). --17:19 09/10/20 Karma Eddy R.N.17:20 09/10/2020 Macrodantin (Nitrofurantoin Macrocrystal) PO Capsules 100 mg given. Allergies verifiedand confirmed 5 rights. Information reviewed with patient including reason for taking this medication, signsof allergic reaction and precautions. Verbalizes understanding. --17:20 09/10/20 Karma Eddy R.N.17:22 09/10/20. BP: 128/64. MAP: 85. HR: 74. RR: 13. O2 saturation: 99%. --17:23 09/10/20 [facility] Ynje118:27 09/10/20. BP: 117/50. MAP: 72. HR: 71. RR: 23. O2 saturation: 100%. --17:27 09/10/20 [facility] Tech1 4 Clinical Report - Nurses [facility] [address] [place] [address] Phone #: ext- [phone] 09/10/2020 15:40 Patient: [...] RR: 21. O2 saturation: 99%. --18:12 09/10/20 [facility] Svbs090:33 09/10/20. BP: 102/75. MAP: 84. HR: 78. RR: 16. O2 saturation: 97%. --18:33 09/10/20 [facility] Ubdq002:58 09/10/20. BP: 125/66. MAP: 85. HR: 87. RR: 16. O2 saturation: 100%. --18:59 09/10/20 [facility] Kwai233:28 09/10/20. BP: 115/59. MAP: 77. HR: 79. RR: 13. O2 saturation: 97%. --19:29 09/10/20 [facility] Gszg274:58 09/10/20. BP: 132/68. MAP: 89. HR: 76. RR: 16. O2 saturation: 96%. --19:58 09/10/20 [facility] Tech1( called [facility] spoke to Haydee about pt being transferred to [facility], was told the the MD Kim hasthe [...] tubes, and lines to prevent fall hazard. --21:471 Varun Brafdord2:44 09/10/20. Reassurance given.Rounding: (Patient resting without complaints, easily aroused. Denies needs.). --23:45 09/10/20 Mario Bradford entry - 00:00 09/11/20. Reassurance given. 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 2 Clinical Report - Physicians/Mid Levels [facility] [address] [place] [address] Phone #: ext- [phone] 09/10/2020 15:40 Patient: [...] results 3 Clinical Report - Physicians/Mid Levels [facility] [address] [place] [address] Phone #: ext- [phone] 09/10/2020 15:40 Patient: SCARLET SOLOMON Sex: F [...] Male GFR Interprentation 20-49 yrs >60 mL/min Qmywcf69-94 yrs >56 mL/min Normal 60-69 yrs >49 mL/min Normal 70-79yrs>42 mL/min Normal 80 and above >35 mL/min Normal Female GFR 4 Clinical Report - Physicians/Mid Levels [facility] [address] [place] [address] Phone #: ext- [phone] 09/10/2020 15:40 Patient: SCARLET SOLOMON Sex: Bairon : 2000 Age: 20yInterpretation 20-39 yrs >60 mL/min Normal 40-49 yrs >58 mL/minNormal 50-59 yrs >51 mL/min Normal 60-69 yrs >45 mL/min Jlapxx93-93 yrs >39 mL/min Normal 80 and above >32 mL/min NormalTSH: (STELLA: 09/10/2020 16:01) ( MsgRcvd 09/10/2020 17:04) Final results Test Result Flag Units (Reference) TSH 2.48 uIU/mL (0.47 - 5.01)Drug Screen-Urine: (STELLA: 09/10/2020 16:00) ( [facility] 09/10/[facility] 16:52) Final results Test Result Flag [...] PRESUMPTIVE POSITIVE CONFIRMATION WILL BE PERFORMED AT [facility].Acetaminophen Level: (STELLA: 09/10/2020 16:01) ( [facility] 09/10/2020 18:28) Final results Test Result Flag Units (Reference) ACETAMINOPHEN <5.0 UG/ML (0.0 - 30.0)Salicylate Level: (STELLA: 09/10/2020 16:01) ( [facility] 09/10/2020 17:06) Final results Test Result Flag Units (Reference) SALICYLATE <0.3 L mg/dL (2.0 - 20.0)ETOH: (STELLA: 09/10/2020 16:01) ( [facility] 09/10/2020 17:04) Final results Test Result Flag Units (Reference) ALCOHOL <10.0 MG/DL ALCOHOL % 0.01 % (0.00 - 0.01) *FOR MEDICAL PURPOSES ONLY*Urinalysis: (STELLA: 09/10/2020 16:00) ( MsgRcvd 09/10/2020 16:51) Final results Test Result Flag Units (Reference) URINALYSIS URINALYSIS SOURCE Clean Catch COLOR yellow (NORMAL: Yello CLARITY hazy (NORMAL: Clear SPEC GRAVITY 1.010 (1.001 - 1.030 pH 7 (5 - 9) GLUCOSE NORM (NORMAL: Negat 5 Clinical Report - Physicians/Mid Levels [facility] [address] [place] [address] Phone #: ext- [phone] 09/10/2020 15:40 Patient: [...] 85.0)Beta-HCG, Qual Serum: (STELLA: 09/10/2020 16:01) ( MegRcvd 09/10/2020 16:50) Final results Test Result Flag Units (Reference) HCG SERUM QUAL NEGATIVE (NORMAL: NEGAT HCG SERUM QL REENTER NEGATIVE (NORMAL: NEGAT { KIT LOT # [id number] ){ KIT EXP [id number] ){ PROCEDURAL CONTROL VALID)COVID-19 CAH: (STELLA: 09/10/2020 16:07) ( MsgRcvd 09/10/2020 16:36) Final results Test Result Flag Units (Reference) COVID-19 NOT DETECTED COVID-19 REENTER NOT DETECTED { PROCEDURAL CONTROL VALID KIT LOT # _[id number] 09/10/20.1635.DW . KIT EXP DATE _84-08-15 14/27/21.6.DW . NORMAL RANGE IS NOT DETECTEDNEGATIVE RESULTS SHOULD BE TREATEDAS PRESUMPTIVE AND, IF INCONSISTENT WITHCLINICAL SIGNS AND SYMPTOMS OR NECESSARY FOR PATIENT MANAGEMENT, SHOULDBETESTED WITH DIFFERENT AUTHORIZED OR CLEARED MOLECULAR TESTS. NEGATIVE RESULTSDO NOT PRECLUDE [id number] AND SHOULD NOT BE USED THE SOLE BASISFOR PATIENT MANAGEMENT DECISIONS.Chest Portable 1 View: (STELLA: 09/10/2020 15:59) ( [facility] 09/10/2020 22:48) In ProgressCHEST PORTABLEReason(s): OverdoseTRANSPORTATION: P IV? O2? Oxygen?(No) Room: ED Exam CHEST PORTABLE [facility] [address] [place] [address] PHONE: [phone] FAX: [phone] Name .................. : JUANITO Waddell Acct Number.................. : [id number] ROOM. ................. : TR-02 MR Number ................... : [id number] Clinical Report - Physicians/Mid Levels [facility] [address] [place] [address] Phone #: ext- [phone] 09/10/2020 15:40 Patient: SCARLET SOLOMON Sex: F : 2000 Age: 20y Stay type ............. : E/R Discharge Date......... ... : Admit Date ......... : 09/10/20 Admit Phys .................... : TURRIN LESLY Date of ....... : 2000 Family Phys ................... : UNKNOWN CO Phone .................. : [phone] Age ................................ : 20 Film# .................. .:[id number] Sex ................................. : F Unsigned transcriptions are preliminary reports and do not represent a medical or legal document CHEST PORTABLE [id number] COMPLETE:09/10/20 20:13 KJE 1503 Reason(s): Overdose PORTABLE CHEST X-RAY: INDICATION: Overdose. FINDINGS: The cardiac and mediastinal silhouettes appear normal and the lungs are clear. The bones and soft tissues are normal. The upper abdomen is unremarkable. IMPRESSION: No acute disease identifiable. Electronically Reviewed and Signed By DCTNAME , SIGNDATE, AISHA Transcribe Initials: BENJAMIN , Transcribe Date: 09/10/20 [...] on stretcher; waiting for [facility] ER to call back for transfer 23:21 09/10/20. still waiting for [facility] ER to call back, pt sleeping on stretcher 00:00 09/11/20. Dr. Kim, ER MD at [facility], called back and accepted pt for transfer. 7 Clinical Report - Physicians/Mid Levels [facility] [address] [place] [address] Phone #: ext- [phone] 09/10/2020 15:40 Patient: [...] to transfer explained to patient. Transferred to [facility]. Summary of care (CCDA) provided to transport team and transfer facility via paper. Condition: good and stable.CLINICAL IMPRESSION Intentional multi-drug overdose with ibuprofen and OTC sedative. Suicide attempt. 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 Acute urinary tract infection with cystitis. No hematuria.(Electronically signed by Benedict Luque M.D. 09/11/2020 02:06) Name Value Range Interpretation Code Description Data Shira rce(s) Supporting Document(s) ID Date Data Source [id number] 09/10/2020 04:36:00 PM [facility] NOT DETECTEDNOT DETECTED{ PROC EDURAL CONTROL VALID KIT LOT # _[id number] 09/10/20.1636.DW . KIT EXP DATE _07-57-53 09/10/20.6.DW . NORMAL RANGE IS NOT DETECTEDNEGATIVE RESULTS [...] rce(s) Supporting Document(s) ID Date Data Source [id number] 09/10/2020 06:28:00 PM [facility] Name Value Range Interpretation Code Description Data [facility] rce(s) Supporting Document(s) Acetaminophen [Presence] in Urine <5.0 UG/ML 0.0 - 30.0 [facility] ID Date Data Source [id number] 09/10/2020 05:13:00 PM [facility] Name Value Range Interpretation Code Description Data [facility] rce(s) Supporting Document(s) COMPREHENSIVE METABOLIC PANEL [facility] COMPREHENSIVE METABOLIC PANEL Sodium [Moles/volume] in Serum or Plasma 137 mEq/L 134 - 153 [facility] Potassium [Moles/volume] in Serum or Plasma 3.9 mEq/L 3.6 - 5.0 [facility] Chloride [Moles/volume] in Serum or Plasma 101 mEq/L 98 - 107 [facility] Carbon dioxide, total [Moles/volume] in Serum or Plasma 26 MEQ/L 22 - 30 [facility] Glucose [Mass/volume] in Serum or Plasma 94 MG/DL 70 - 99 [facility] BUN 11 MG/DL 7 - 21 [facility] Creatinine [Mass/volume] in Serum or Plasma 0.5 MG/DL 0.7 - 1.5 L [facility] BUN/CREAT 22 8 - 27 [facility] Protein [Mass/volume] in Serum or Plasma 7.1 G/DL 6.3 - 8.2 [facility] Albumin [Mass/volume] in Serum or Plasma 4.5 G/DL 3.9 - 5.0 [facility] Globulin [Mass/volume] in Serum by calculation 2.6 GM/DL 2.4 - 3.2 [facility] A/G RATIO 1.7 0.8 - 2.0 [facility] Calcium [Mass/volume] in Serum or Plasma 9.1 MG/DL 8.4 - 10.2 [facility] Bilirubin.total [Mass/volume] in Serum or Plasma <0.7 MG/DL 0.2 - 1.3 [facility] Alkaline phosphatase [Enzymatic activity/volume] in Serum or Plasma 103 U/L 38 - 126 [facility] Aspartate aminotransferase [Enzymatic activity/volume] in Serum or Plasma 22 U/L 5 - 40 [facility] Alanine aminotransferase [Enzymatic activity/volume] in Seru m or Plasma 20 U/L 7 - 56 [facility] Anion gap 3 in Serum or Plasma 10.0 mmol/L 8.0 - 16.0 [facility] AGE [address] [facility] al NON-AA GFR >60 mL/min [facility] ital AFR AMER GFR >60 mL/min [facility] Male GFR In [...] >32 mL/min Normal ID Date Data Source [id number] 09/10/2020 05:05:00 PM EST [facility] Name Value Range Interpretation Code Description Data Shira rce(s) Supporting Document(s) SALICYLATE <0.3 mg/dL 2.0 - 20.0 L [facility] ID Date Data Source [id number] 09/10/2020 05:04:00 PM EST [facility] Name Value Range Interpretation Code Description Data Shira rce(s) Supporting Document(s) Ethanol [Moles/volume] in Blood <10.0 MG/DL [facility] ALCOHOL % 0.01 % 0.00 - 0.01 [facility] *FOR MEDICAL PURPOSES ONLY * ID Date Data Source [id number] 09/10/2020 05:04:00 PM [facility] Name Value Range Interpretation Code Description Data Hsira rce(s) Supporting Document(s) Thyrotropin [Units/volume] in Serum or Plasma by Detec tion limit <= 0.05 mIU/L 2.48 uIU/mL 0.47 - 5.01 [facility] ID Date Data Source [id number] 09/10/2020 04:52:00 PM [facility] Name Value Range Interpretation Code Description Data Shira rce(s) Supporting Document(s) CBC W/AUTOMATED DIFF [facility] COMPLETE BLOOD COUNT Leukocytes [#/volume] in Blood by Automated count 10.6 10^3/uL 4.2 - 11.0 [facility] Erythrocytes [#/volume] in Blood by Automated count 4.73 10^6/uL 4. 20 - 5.40 [facility] Hemoglobin [Mass/volume] in Blood 13.9 g/dL 12.0 - 16.0 [facility] Hematocrit [Volume Fraction] of Blood by Automated count 41.0 % 3 7.0 - 47.0 [facility] Erythrocyte mean corpuscular volume [Entitic volume] by Auto mated count 86.7 fL 81.0 - 101 [facility] Erythrocyte mean corpuscular hemoglobin [Entitic mass] by Automated count 29.4 pg 27.0 - 34.0 [facility] Erythrocyte mean corpuscular hemoglobin concentration [Mass/volume] by Automated count 33.9 g/dL 31.0 - 36.0 [facility] Erythrocyte distribution width [Ratio] by Automated count 11.7 % 11.5 - 14.5 [facility] Platelets [#/volume] in Blood by Automated count 413 10^3/uL 150 - 45 0 [facility] Platelet mean volume [Entitic volume] in Blood by Automated count 8.6 fL 7.4 - 10.4 [facility] Neutrophils/100 leukocytes in Blood by Automated count 68.1 % 37. 0 - 80.0 [facility] Lymphocytes/100 leukocytes in Blood by Manual count 21.4 % 25.0 - 40.0 L [facility] Monocytes/100 leukocytes in Blood by Automated count 7.7 % 3.0 - 8.0 [facility] Eosinophils/100 leukocytes in Blood by Automated count 1.8 % 0.0 - 7.0 [facility] Basophils/100 leukocytes in Blood by Automated count 0.6 % 0.0 - 2.5 [facility] %IG 0.4 % 0.0 - 0.0 [facility] 0.0 % 0.0 - 0.0 [facility] al Neutrophils [#/volume] in Blood by Automated count 7.21 10^3/uL 2.00 - 6.90 H [facility] Lymphocytes [#/volume] in Blood by Automated count 2.26 10^3/uL 0.60 - 3.40 [facility] Monocytes [#/volume] in Blood by Automated count 0.81 10^3/uL 0.00 - 0.90 [facility] Eosinophils [#/volume] in Blood by Automated count 0.19 10^3/uL 0.00 - 0.70 [facility] Basophils [#/volume] in Blood by Automated count 0.06 10^3/uL 0.00 - 0.20 [facility] #IG 0.04 10^3/uL 0.00 - 0.10 [facility] ospital #NRBC 0.00 10^3/uL 0.00 - 0.00 [facility]spital MANUAL DIFF NOT INDICATED [facility] RBC MORPH NOT INDICATED [facility] ID Date Data Source [id number] 09/10/2020 04:50:00 PM EST [facility] Name Value Range Interpretation Code Description Data Shira rce(s) Supporting Document(s) HCG SERUM QUAL NEGATIVE NORMAL: NEGATIVE [facility] HCG SERUM QL REENTER NEGATIVE NORMAL: NEGATIVE [facility] { KIT LOT # [id number] ){ KIT EXP DATE 05-20-21 ){ PROCEDURAL CONTROL VALID ) ID Date Data Source [id number] 09/10/2020 04:26:00 PM EST [facility] Name Value Range Interpretation Code Description Data Shira rce(s) Supporting Document(s) pH of Serum or Plasma 7.34 7.32 - 7.43 [facility] pCO2 V 51.0 mm/HG 38.0 - 51.0 [facility] pO2 V 28.4 mm/HG 30.0 - 55.0 L [facility] Bicarbonate [Moles/volume] in Venous blood 26.7 meq/L 22.0 - 29.0 [facility] TCO2 V 28.3 meq/L 22.0 - 29.0 [facility] Base excess in Blood by calculation 0.1 -2.0 - 2.0 [facility] O2 SAT V 48.5 % 40.0 - 85.0 [facility] ID Date Data Source [id number] 09/10/2020 04:52:00 PM [facility] Name Value Range Interpretation Code Description Data Shira rce(s) Supporting Document(s) DRUG SCREEN URINE [facility] URINE DRUG SCREEN Amphetamine [Presence] in Urine by Screen method NEGATIVE NORMAL: N EGATIVE [facility] BARBITURATES NEGATIVE NORMAL: NEGATIVE [facility] BENZO NEGATIVE NORMAL: NEGATIVE [facility] COCAINE NEGATIVE NORMAL: NEGATIVE [facility] Tetrahydrocannabinol [Presence] in Urine NEGATIVE NORMAL: NEGATIVE [facility] OPIATES NEGATIVE NORMAL: NEGATIVE [facility] Phencyclidine [Presence] in Urine by Screen method NEGATIVE NOR MAL: NEGATIVE [facility] \\BLDo\\URINE DRUG SCR EEN INTERPRETATION\\BLDx\\ THE CUTOFFF LEVELS FOR DETECTION ARE FOLLOWS: AMPHETAMINES 1000 ng/ml BARBITUARATES 200 ng/ml BENZODIAZEPINES 100 ng/ml THC 50 ng/ml PHENCYCLIDINE 25 ng/ml OPIATES 300 ng/ml COCAINE 300 ng/ml ALL POSITIVES ARE CONSIDERED PRESUMPTIVE POSITIVE CONFIRMATION WILL BE PERFORMED AT PHYSICIAN REQUEST. ID Date Data Source [id number] 09/10/2020 04:51:00 PM EST [facility] Name Value Range Interpretation Code Description Data Shira rce(s) Supporting Document(s) [facility] SOURCE Clean Catch [facility] ital COLOR yellow NORMAL: Yellow [facility] CLARITY hazy NORMAL: Clear [facility] Specific gravity of Urine by Test strip 1.010 1.001 - 1.030 [facility] pH 7 5 - 9 [facility] al Glucose [Mass/volume] in Urine by Test strip NORM NORMAL: Negat [facility] Bilirubin.total [Presence] in Urine by Test strip NEG NORMAL: Negative [facility] Ketones [Presence] in Urine by Test strip NEG NORMAL: Negative [facility] Protein [Mass/volume] in Urine by Test strip 30 NORMAL: Negat [facility] Nitrite [Presence] in Urine by Test strip POS NORMAL: Negative [facility] BLOOD 250 NORMAL: Negative [facility] Leukocyte esterase [Presence] in Urine by Test strip 25 MAURIZIO L: Negative [facility] Urobilinogen [Mass/volume] in Urine by Test strip NOR less rocky n 1.0 mg/dL [facility] MICROSCOPIC See Below [facility] ital WBC 3 - 5 NORMAL: NONE SEEN [facility] Erythrocytes [#/volume] in Urine by Test strip 15 - 20 NORMAL: NON E SEEN A [facility] EPITHELIAL MANY NORMAL: NONE SEEN A [facility] Bacteria [Presence] in Urine sediment by Light microscopy 2+ MOD NORMAL: NONE SEEN A [facility] ID Date Data Source [id number] 08/27/2020 01:26:00 PM EST [facility] ([facility]) Name Value Range Interpretation Code Description Data Shira rce(s) Supporting Document(s) Color of Urine Laboratory test result [facility] ([facility]) Appearance of Urine Laboratory test result [facility] ([facility]) pH of Urine by Test strip 5 [facility] NT ([facility]) Spec [place] 1.020 [facility] ([facility]) Leukocytes Laboratory test result [facility] ([facility]) Nitrate [Presence] in Urine Laboratory test result [facility] ([facility]) Inhouse Glucose Laboratory test result [facility] ([facility]) Protein [Presence] in Urine by Test strip Laboratory test result [facility] ([facility]) Urobilinogen Laboratory test result [facility] ([facility]) Ketones [Presence] in Urine by Test strip Laboratory test result [facility] ([facility]) Bilirubin.total [Presence] in Urine by Test strip Laboratory test res ult [facility] ([facility]) Blood type and Indirect antibody screen panel - Blood 250 [facility] ([facility]) ID Date Data Source [id number] 06/22/2020 11:52:00 AM EST [facility] Name Value Range Interpretation Code Description Data Shira rce(s) Supporting Document(s) LAB - SPECIMEN REJECTION [facility] Specimen Integrity/Specimen Recollection The patient sample needs to be resubmitted for the following reason: Test(s) Ordered GI PANEL [facility] Rejection Reason Sample [facility] { One or more of the tests you ordered cannot be performed.{ Please recollect, reorder, and resubmit if needed. ID Date Data Source [id number] 06/21/2020 07:16:00 PM EST [facility] 1 OrderSheet [facility] Emergency Department [address] [place] [address] Phone #: ext- [phone] 06/21/2020 19:02 Patient: SCARLET SOLOMON Sex: F : 2000 Age: 20yWEIGHT:86.1 kg (S) HEIGHT:66 inches (S) BMI:30.7ALLERGIES: NoneCHIEF COMPLAINT: abdominal pain, flank painDIAGNOSIS: Abdominal pain, Mesenteric lymphadenitis, UrticariaLAB ORDERSOrder Description Priority Entered Acknowledged InitialedGI 4 Panel 19:19 06/21/2020 19:20 Russell Wells Jennifer Jennifer R.N. R.N.; Verbal order per; Torrey Arevalo PhysicianUrinalysis (Clean STAT 19:20 06/21/2020 19:20 Russell,Alejandra) Nasreen Wells.N. R.N.; Verbal order per; Torrey Arevalo PhysicianCBC w [...] : Bolus 1000 Rashmi Hodges R.N.mL (X1) R.N.; Written order per; Behzad Gomes 2 OrderSheet [facility] [address] [place] [address] Phone #: ext- [phone] 06/21/2020 19:02 Patient: SCARLET SOLOMON Sex: F [...] rce(s) Supporting Document(s) ID Date Data Source [id number] 06/21/2020 07:16:00 PM EST [facility] 1 Medication Reconciliation Report [facility] [address] [place] [address] Phone #: [phone]- [phone] 06/21/2020 19:02 Patient: SCARLET SOLOMON Sex: F [...] Dispense 20 tablet. Refills: 0. Substitutionpermitted.Pharmacy - [facility] [phone] ; [place] [address]. . -- Behzad Gomes Name Value Range Interpretation Code Description Data Shira rce(s) Supporting Document(s) ID Date Data Source [id number] 06/21/2020 07:16:00 PM [place] [address] Medication Administration Record [facility] [address] [place] [address] Phone #: ext- [phone] 06/21/2020 19:02 Patient: SCARLET SOLOMON Sex: F : 2000 Age: 20yWeight: 86.1 kgHeight/Length: 66 inBMI: 30.7ALLERGIES: None Date/Time Medication Administered Medication OrderedStart IV NS W/ BOLUS IV NS 1000 mL Bolus : Bolus [id number] 06/21/2020 Dose: IV Fluids mL (X1)Rashmi Hodges R.N. Rate: 1000 mL/hr---- Dispensed: 1000 mL bagStop Site: #1 right AC22:00 06/21/2020Rashmi Hodges R.N.Given BENTYL [PO] (DICYCLOMINE HCL) Bentyl PO 10 mg21:29 06/21/2020 Dose: 10 mg Capsules Rashmi Diaz R.N. Name Value Range Interpretation Code Description Data Shira rce(s) Supporting Document(s) ID Date Data Source [id number] 06/21/2020 07:16:00 PM [place] [address] General Instructions [facility] [address] [place] [address] Phone #: ext- [phone] 06/21/2020 19:02 Patient: SCARLET SOLOMON Sex: Bairon : 2000 Age: 20yAcute right lower quadrant abdominal pain.Acute hives secondary to unknown cause.Acute mesenteric lymphadenitisINSTRUCTIONSDrink plenty of fluids. Take clear liquids only.(Patient to follow up with primary medical doctor for possible referral to urologist and or hospice nurse practitioner.Patient to take bentyl as directed. Patient to inform primary medical doctor of diagnosis of mesentericadenitis. Patient advised to stop antibiotic until c-diff test comes b ack.).Prescription Medications:dicyclomine 20 mg tablet Take 1 tablet four times a day -- Dispense 20 tablet. Refills: 0. Substitutionpermitted.Pharmacy - [facility] [phone] ; [place] [id number]. .Follow-up:Return to the emergency department if not [...] can be all over 2 General Instructions [facility] [address] [place] [address] Phone #: ext- [phone] 06/21/2020 19:02 Patient: SCARLET SOLOMON Sex: Bairon : 2000 Age: 20y Pain can be [...] will be told if there are changes.Call [phone] if any of these occur: Trouble breathing 3 General Instructions [facility] [address] [place] [address] Phone #: ext- [phone] 06/21/2020 19:02 Patient: [...] skin Swelling in the abdomen Bloody stools [phone] [employer]. [address] [place] [address], [place] [address]. All rights reserved. This information is not [...] foods such as fruit, 4 General Instructions [facility] [address] [place] [address] Phone #: ext- [phone] 06/21/2020 19:02 Patient: SCARLET SOLOMON Sex: F : 2000 Age: 20yshellfish, chocolate, nuts, or [...] any of these occur: 5 General Instructions [facility] [address] [place], [place] [id number] Phone #: ext- [phone] 06/21/2020 19:02 Patient: SCARLET SOLOMON Sex: F : 2000 Age: 20y Fever of 100.4F (38.0C) or higher, or as directed by your healthcare provider Redness, swelling, or pain Foul-smelling fluid coming from the rashCall 911Call 911 if any of the following occur: Swelling of the face, throat, or tongue Trouble breathing or swallowing Dizziness, weakness, or fainting [phone] [employer]. [address] [place] [address]. All rights reserved. This information is not intended as asubstitute for professional medical care. Always follow your healthcare professional's instructions. You have been given the following additional information: Adenitis, Mesenteric Hives (Adult)(Electronically signed by Behzad Gomes, 06/22/2020 11:46) Name Value Range Interpretation Code Description Data Shira rce(s) Supporting Document(s) ID Date Data Source [id number] 06/21/2020 07:16:00 PM EST [facility] 1 Clinical Report - Nurses [facility] [address] [place] [address] Phone #: ext- [phone] 06/21/2020 19:02 Patient: SCARLET SOLOMON Sex: F [...] was offered 2 Clinical Report - Nurses [facility] [address] [place] [address] Phone #: ext- [phone] 06/21/2020 19:02 Patient: [...] Behzad Gomes. Interventions Identification band on patient. --19:06/21/20 Amelia, Nasreen, R.N.PHYSICAL ASSESSMENTAmbulatory to room.GENERAL / NEURO / [...] on. Patient ready for evaluation- ED physicianazael PA notified. --:06/21/20 Nasreen Wells R.N. 3 Clinical Report - Nurses [facility] [address] [place] [address] Phone #: ext- [phone] 06/21/2020 19:02 Patient: SCARLET SOLOMON Sex: F : 2000 Age: 20y Patient ID band checked for patient name and birthdate: patient confirmed. Instructions provided to collect clean catch urine and patient verbalized understanding. Clean catch urine collected; sample sent to lab for urinalysis. Specimen labeled in the presence of the patient. --:06/21/20 Nasreen Wells R.N. ( Pt had some [...] 10 mL saline. --19:06/21/20 Nasreen Wells R.N. 19:06/21/20. HR: 103. O2 saturation: 99%. --:06/21/20 Nasreen Wells R.N. Care transferred and report given (Beth Roach RN). --:06/21/20 Nasreen Wells R.N. 20:00 06/21/20. ( pt [...] reason for taking this medication. Verbalizes understanding. --:06/21/20 Rashmi Hodges R.N. The patient reports no [...] Reviewed diet. 4 Clinical Report - Nurses [facility] [address] [place] [address] Phone #: ext- [phone] 06/21/2020 19:02 Patient: SCARLET SOLOMON Sex: F : 2000 Age: 20y Follow up contact number. The patient was discharged by the physician physician's assistant. She was discharged home and unaccompanied [...] rce(s) Supporting Document(s) ID Date Data Source [id number] 06/21/2020 07:16:00 PM EST [facility] 1 Clinical Report - Physicians/Mid Levels [facility] [address] [place] [address] Phone #: ext- [phone] 06/21/2020 19:02 Patient: SCARLET SOLOMON Sex: F [...] deficit. 2 Clinical Report - Physicians/Mid Levels [facility] [address] [place] [address] Phone #: ext- [phone] 06/21/2020 19:02 Patient: SCARLET SOLOMON Sex: F : 2000 Age: 20yCLINICAL IMPRESSION Acute right lower quadrant abdominal pain. Acute hives secondary to unknown cause. Acute mesenteric lymphadenitisINSTRUCTIONS Drink plenty of fluids. Take clear liquids only. (Patient to follow up with primary medical doctor for possible referral to urologist and or hospice nurse practitioner. Patient to take bentyl as directed. Patient to inform primary medical doctor of diagnosis of mesenteric adenitis. Patient advised to stop antibiotic until c-diff test comes back.). Prescription Medications: dicyclomine 20 mg tablet Take 1 tablet four times a day -- Dispense 20 tablet. Refills: 0. Substitution permitted. Pharmacy - [facility] [phone] ; [place] [address]. . Follow-up: Return to the emergency department if not better. Understanding of the discharge instructions verbalized by patient. Follow-up with: Follow up Tuesday. Call for an appointment. Reason for referral: evaluation and treatment.(Electronically signed by Behzad Gomes, 06/22/2020 11:46) Name Value Range Interpretation Code Description Data Shira rce(s) Supporting Document(s) ID Date Data Source [id number] 06/21/2020 08:04:00 PM EST [facility] Name Value Range Interpretation Code Description Data Shira rce(s) Supporting Document(s) Lipase [Enzymatic activity/volume] in Serum or Plasma 36 U/L 13 - 60 [facility] ID Date Data Source [id number] 06/21/2020 08:03:00 PM EST [facility] Name Value Range Interpretation Code Description Data Shira rce(s) Supporting Document(s) COMPREHENSIVE METABOLIC PANEL [facility] COMPREHENSIVE METABOLIC PANEL Sodium [Moles/volume] in Serum or Plasma 135 mEq/L 134 - 153 [facility] Potassium [Moles/volume] in Serum or Plasma 3.7 mEq/L 3.6 - 5.0 [facility] Chloride [Moles/volume] in Serum or Plasma 98 mEq/L 98 - 107 [facility] Carbon dioxide, total [Moles/volume] in Serum or Plasma 28 MEQ/L 22 - 30 [facility] Glucose [Mass/volume] in Serum or Plasma 105 MG/DL 65 - 110 [facility] BUN 13 MG/DL 7 - 21 [facility] Creatinine [Mass/volume] in Serum or Plasma 0.7 MG/DL 0.7 - 1.5 [facility] BUN/CREAT 19 8 - 27 [facility] Protein [Mass/volume] in Serum or Plasma 7.9 G/DL 6.3 - 8.2 [facility] Albumin [Mass/volume] in Serum or Plasma 4.6 G/DL 3.9 - 5.0 [facility] Globulin [Mass/volume] in Serum by calculation 3.3 GM/DL 2.4 - 3.2 H [facility] A/G RATIO 1.4 0.8 - 2.0 [facility] Calcium [Mass/volume] in Serum or Plasma 9.4 MG/DL 8.4 - 10.2 [facility] Bilirubin.total [Mass/volume] in Serum or Plasma <0.7 MG/DL 0.2 - 1.3 [facility] Alkaline phosphatase [Enzymatic activity/volume] in Serum or Plasma 94 U/L 38 - 126 [facility] Aspartate aminotransferase [Enzymatic activity/volume] in Serum or Plasma 25 U/L 5 - 40 [facility] Alanine aminotransferase [Enzymatic activity/volume] in Seru m or Plasma 24 U/L 7 - 56 [facility] Anion gap 3 in Serum or Plasma 9.0 mmol/L 8.0 - 16.0 [facility]GE 20 [facility]rs [facility] NON-AA GFR >60 mL/min [facility] AFR AMER GFR >60 mL/min [facility] Male GFR In [...] >32 mL/min Normal ID Date Data Source [id number] 06/21/2020 07:58:00 PM EST [facility] Name Value Range Interpretation Code Description Data Shira rce(s) Supporting Document(s) HCG SERUM QUAL NEGATIVE NORMAL: NEGATIVE [facility] HCG SERUM QL REENTER NEGATIVE NORMAL: NEGATIVE [facility] { KIT LOT # [id number] ){ KIT EXP DATE 05-20-21 ){ PROCEDURAL CONTROL VALID ) ID Date Data Source [id number] 06/21/2020 07:48:00 PM EST [facility] Name Value Range Interpretation Code Description Data Shira rce(s) Supporting Document(s) CBC W/AUTOMATED DIFF [facility] COMPLETE BLOOD COUNT Leukocytes [#/volume] in Blood by Automated count 11.6 10^3/uL 4.2 - 11.0 H [facility] Erythrocytes [#/volume] in Blood by Automated count 4.68 10^6/uL 4. 20 - 5.40 [facility] Hemoglobin [Mass/volume] in Blood 14.0 g/dL 12.0 - 16.0 [facility] Hematocrit [Volume Fraction] of Blood by Automated count 41.2 % 3 7.0 - 47.0 [facility] Erythrocyte mean corpuscular volume [Entitic volume] by Auto mated count 88.0 fL 81.0 - 101 [facility] Erythrocyte mean corpuscular hemoglobin [Entitic mass] by Automated count 29.9 pg 27.0 - 34.0 [facility] Erythrocyte mean corpuscular hemoglobin concentration [Mass/volume] by Automated count 34.0 g/dL 31.0 - 36.0 [facility] Erythrocyte distribution width [Ratio] by Automated count 11.4 % 11.5 - 14.5 L [facility] Platelets [#/volume] in Blood by Automated count 387 10^3/uL 150 - 45 0 [facility] Platelet mean volume [Entitic volume] in Blood by Automated count 8.7 fL 7.4 - 10.4 [facility] Neutrophils/100 leukocytes in Blood by Automated count 67.9 % 37. 0 - 80.0 [facility] Lymphocytes/100 leukocytes in Blood by Manual count 23.3 % 25.0 - 40.0 L [facility] Monocytes/100 leukocytes in Blood by Automated count 7.3 % 3.0 - 8.0 [facility] Eosinophils/100 leukocytes in Blood by Automated count 0.8 % 0.0 - 7.0 [facility] Basophils/100 leukocytes in Blood by Automated count 0.3 % 0.0 - 2.5 [facility] %IG 0.4 % 0.0 - 0.0 H [facility] %NRBC 0.0 % 0.0 - 0.0 [facility] al Neutrophils [#/volume] in Blood by Automated count 7.87 10^3/uL 2.00 - 6.90 H [facility] Lymphocytes [#/volume] in Blood by Automated count 2.71 10^3/uL 0.60 - 3.40 [facility] Monocytes [#/volume] in Blood by Automated count 0.85 10^3/uL 0.00 - 0.90 [facility] Eosinophils [#/volume] in Blood by Automated count 0.09 10^3/uL 0.00 - 0.70 [facility] Basophils [#/volume] in Blood by Automated count 0.04 10^3/uL 0.00 - 0.20 [facility] #IG 0.05 10^3/uL 0.00 - 0.10 [facility] ospital #NRBC 0.00 10^3/uL 0.00 - 0.00 [facility] MANUAL DIFF NOT INDICATED [facility] RBC MORPH NOT INDICATED [facility] ID Date Data Source [id number] 06/21/2020 07:47:00 PM EST [facility] Name Value Range Interpretation Code Description Data Shira rce(s) Supporting Document(s) [facility] yellow NORMAL: Yellow [facility] CLARITY clear NORMAL: Clear [facility] Specific gravity of Urine by Test strip 1.015 1.001 - 1.030 [facility] pH 7 5 - 9 [facility] al Glucose [Mass/volume] in Urine by Test strip NORM NORMAL: Negat [facility] Bilirubin.total [Presence] in Urine by Test strip NEG NORMAL: Negative [facility] Ketones [Presence] in Urine by Test strip NEG NORMAL: Negative [facility] Protein [Mass/volume] in Urine by Test strip NEG NORMAL: Negat [facility] Nitrite [Presence] in Urine by Test strip NEG NORMAL: Negative [facility] BLOOD 10 NORMAL: Negative [facility] Leukocyte esterase [Presence] in Urine by Test strip NEG MAURIZIO L: Negative [facility] Urobilinogen [Mass/volume] in Urine by Test strip 1 less rocky n 1.0 mg/dL [facility] MICROSCOPIC See Below [facility] ital WBC None Seen NORMAL: NONE SEEN [facility] Erythrocytes [#/volume] in Urine by Test strip None Seen NORMAL: NON E SEEN [facility] EPITHELIAL MODERATE NORMAL: NONE SEEN [facility] [facility] [Presence] in Urine sediment by Light microscopy No ne Seen NORMAL: NONE SEEN [facility] Mucus [Presence] in Urine sediment by Light microscopy None Seen NORMAL: NONE SEEN [facility] Amorphous sediment [Presence] in Urine sediment by Light froilan roscopy RARE NORMAL: NONE SEEN [facility] ID Date Data Source [id number] 06/20/2020 10:34:00 AM [facility] [address] [place] [address] PHONE: [phone] FAX: [phone] Name .................. : JUANITO Waddell Acct Number.................. : [id number] ROOM. ................. : -1A MR Number ................... : [id number] Stay type ............. : E/R Discharge Date......... ... : 06/19/20 Admit Date ......... : 06/19/20 Admit Phys .................... : COONEYNORM Date of ....... : 2000 Family Phys ................... : UNKNOWN CO Phone .................. : [phone] Age ................................ : 20 Film# .................. .:[id number] Sex ................................. : F Unsigned transcriptions are preliminary reports and do not represent a medical or legal document CT ABD & PELVIS W/ IV ONLY [id number] COMPLETE:06/19/20 18:06 [facility] [id number] Reason(s): A bdominal Pain CT OF THE [...] nodes: No adenopathy. Page 1 of [address] [place] [address] PHONE: [phone] FAX: [phone] Name .................. : JUANITO Waddell Acct Number.................. : [id number] ROOM. ................. : -1A MR Number ................... : [id number] Stay type ............. : E/R Discharge Date......... ... : 06/19/20 Admit Date ......... : 06/19/20 Admit Phys .................... : COONEYNORM Date of ....... : 2000 Family Phys ................... : UNKNOWN CO Phone .................. : [phone] Age ................................ : 20 Film# .................. .:[id number] Sex ................................. : F Unsigned transcriptions are preliminary reports and do not represent a medical or legal document CT ABD & PELVIS W/ IV ONLY [id number] COMPLETE:06/19/20 18:06 [facility] 07209 Reason(s): Abdominal Pain Vessels. Normal abdominal aorta [...] MD , 06/20/20 10:34, [facility] Transcribe Initials: DZ , Transcribe Date: 06/19/20 23:06, Dictation Date: Copy for: ZOLTAN DINH via fax Copy for: EMERGENCY DEPT via modem Copy for: 710 MED REC DISCHARGED Page 2 of 2 Name Value Range Interpretation Code Description Data Shira rce(s) Supporting Document(s) ID Date Data Source [id number] 06/20/2020 10:30:00 AM EST [facility] [address] [place] [address] PHONE: [phone] FAX: [phone] Name .................. : JUANITO Waddell Acct Number.................. : [id number] ROOM. ................. : TR-1A MR Number ................... : [id number] Stay type ............. : E/R Discharge Date......... ... : 06/19/20 Admit Date ......... : 06/19/20 Admit Phys .................... : COONEYNORM Date of ....... : 2000 Family Phys ................... : UNKNOWN CO Phone .................. : [phone] Age ................................ : 20 Film# .................. .:[id number] Sex ................................. : F Unsigned transcriptions are preliminary reports and do not represent a medical or legal document TRANSVAGINAL(NON OB) [id number] COMPLETE:06/19/20 16:03 KNB 72617 (REASON FOR OBS: RLQ Pain TRANSVAGINAL PELVIC [...] MCALLISTER MD , 06/20/20 10:30, [facility] Transcribe Initials: BENJAMIN , Transcribe Date: 06/19/20 22:56, Dictation Date: Copy for: EMERGENCY DEPT via [facility] Copy for: 710 MED REC DISCHARGED Page 1 of 1 Name Value Range Interpretation Code Description Data Shira rce(s) Supporting Document(s) ID Date Data Source [id number] 06/20/2020 10:29:00 AM [facility] [address] [place] [address] PHONE: [phone] FAX: [phone] Name .................. : SOLOMONGUILLERMO Waddell Acct Number.................. : [id number] ROOM. ................. : TR-1A MR Number ................... : [id number] Stay type ............. : E/R Discharge Date......... ... : 06/19/20 Admit Date ......... : 06/19/20 Admit Phys .................... : COONEYNORM Date of ....... : 2000 Family Phys ................... : UNKNOWN CO Phone .................. : [phone] Age ................................ : 20 Film# .................. .:[id number] Sex ................................. : F Unsigned transcriptions are preliminary reports and do not represent a medical or legal document US ABD LIMITED [id number] COMPLETE:06/19/20 16:03 [facility] [address] Reason(s): RLQ PAIN RIGHT LOWER QUADRANT ULTRASOUND: [...] MCALLISTER MD , 06/20/20 10:29, [facility] Transcribe Initials: BENJAMIN , Transcribe Date: 06/19/20 19:55, Dictation Date: Copy for: ZOLTAN DINH via fax Copy for: EMERGENCY DEPT via [place] Copy for: 710 MED REC DISCHARGED Page 1 of 1 Name Value Range Interpretation Code Description Data Shira rce(s) Supporting Document(s) ID Date Data Source [id number] 06/20/2020 10:29:00 AM EST [facility] [address] [place] [address] PHONE: [phone] FAX: [phone] Name .................. : JUANITO Waddell Acct Number.................. : [id number] ROOM. ................. : TR-1A MR Number ................... : [id number] Stay type ............. : E/R Discharge Date......... ... : 06/19/20 Admit Date ......... : 06/19/20 Admit Phys .................... : COONEYNORM Date of ....... : 2000 Family Phys ................... : UNKNOWN CO Phone .................. : [phone] Age ................................ : 20 Film# .................. .:[id number] Sex ................................. : F Unsigned transcriptions are preliminary reports and do not represent a medical or legal document PELVIC [id number] COMPLETE:06/19/20 16:03 KNB 83556 Reason(s): Pelvic Pain PELVIC ULTRASOUND: HISTORY: Pelvic [...] MCALLISTER MD , 06/20/20 10:29, [facility] Transcribe Initials: BENJAMIN , Transcribe Date: 06/19/20 19:25, Dictation Date: Copy for: ZOLTAN DINH via fax Copy for: EMERGENCY DEPT via modem Copy for: 710 MED REC DISCHARGED Page 1 of 1 Name Value Range Interpretation Code Description Data Shira rce(s) Supporting Document(s) ID Date Data Source [id number] 06/20/2020 10:28:00 [place] [address] PHONE: [phone] FAX: [phone] Name .................. : JUANITO Waddell Acct Number.................. : [id number] ROOM. ................. : TR-1A MR Number ................... : [id number] Stay type ............. : E/R Discharge Date......... ... : Admit Date ......... : 06/19/20 Admit Phys .................... : COONEYNORM Date of ....... : 2000 Family Phys ................... : UNKNOWN CO Phone .................. : [phone] Age ................................ : 20 Film# .................. .:[id number] Sex ................................. : F Unsigned transcriptions are preliminary reports and do not represent a medical or legal document RENAL [id number] COMPLETE:06/19/20 16:03 B 06114 Reason(s): Renal Colic/Flank BILATERAL RENAL ULTRASOUND: HISTORY: Renal colic and flank pain. FINDINGS: The right kidney measures 1.1 cm. The left kidney measures 11.4 cm. No hydronephrosis noted. Bilateral ureteral jets noted in the bladder. Cortical echotexture appears normal. No renal calculi noted. IMPRESSION: Unremarkable bilateral renal ultrasound. Electronically Reviewed and Signed By CONNOR MCALLISTER MD , 06/20/20 10:28, [facility] Transcribe Initials: BENJAMIN , Transcribe Date: 06/19/20 17:48, Dictation Date: Copy for: ZOLTAN DINH via fax Copy for: EMERGENCY DEPT via [facility] Copy for: 710 MED REC DISCHARGED Page 1 of 1 Name Value Range Interpretation Code Description Data Shira rce(s) Supporting Document(s) ID Date Data Source [id number] 06/19/2020 02:47:00 PM EST [facility] 1 OrderSheet [facility] Department [address] [place] [address] Phone #: ext- [phone] 06/19/2020 14:37 Patient: [...] Nasreen Marie R.N.; R.N. Reason for Study: Renal Colic/Flank 2 OrderSheet [facility] [address] [place] [address] Phone #: [phone]- [phone] 06/19/2020 14:37 Patient: SCARLET SOLOMON Sex: F : 2000 Age: 20yUS Abdomen STAT 15:02 06/19/2020 Ack'd: 15:03 15:36 Amelia,Limited Nasreen Marie R.N.(Oxygen?(No)) PA; R.NElder NOTES: Appy? Reason for Study: RLQ PAINCT Abd PEL W/ IV STAT 17:11 06/19/2020 Ack'd: 17:12 17:18 Russell,Contrast Only Nasreen Marie R.N.(Oxygen?(No)) PA; R.NElder(IV?(Yes)) NOTES: Rule out appy Reason for Study: [...] Acknowledged InitialedNPO 15:02 06/19/2020 15:03 Jesse Wells R.N. PA;Saline Lock 15:02 06/19/2020 15:03 Jesse Wells R.N. PA;[Electronically signed by Karma Eddy R.N. (18:18 06/19/2020)][Electronically signed by Jesse Wilcox (21:42 06/19/2020)][Electronically locked by Karma Eddy R.N. (18:18 06/19/2020)] Name Value Range Interpretation Code Description Data [facility](s) Supporting Document(s) ID Date Data Source [id number] 06/19/2020 02:47:00 PM [facility] 1 Medication Reconciliation Report [facility] [address] [place] [address] Phone #: ext- [phone] 06/19/2020 14:37 Patient: [...] Name Value Range Interpretation Code Description Data [facility] Document(s) ID Date Data Source [id number] 06/19/2020 02:47:00 PM [facility] 1 Medication Administration Record [facility] [address] [place] [address] Phone #: ext- [phone] 06/19/2020 14:37 Patient: SCARLET SOLOMON Sex: F : 2000 Age: 20yWeight: 86.1 kgHeight/Length: 66 inBMI: 30.7ALLERGIES: None Date/Time Medication Administered Medication OrderedStart NS [IV] NS IV : Bolus 1000 mL, then 28298:07 06/19/2020 Dose: IV Fluids mL/hrPNasreen carter R.N. [...] rce(s) Supporting Document(s) ID Date Data Source [id number] 06/19/2020 02:47:00 PM EST [facility] 1 General Instructions [facility] [address] [place] [address] Phone #: ext- [phone] 06/19/2020 14:37 Patient: [...] Appendicitis, Repeat Exam (Female) 2 General Instructions [facility] [address] [place] [address] Phone #: ext- [phone] 06/19/2020 14:37 Patient: [...] diarrhea Not passing gas 3 General Instructions [facility] [address] [place] [address] Phone #: ext- [phone] 06/19/2020 14:37 Patient: SCARLET SOLOMON Sex: Bairon : 2000 Age: 20yHome care Rest until [...] might be or have unexpected vaginal bleeding.Call [phone] right away if: You have trouble breathing. You become very confused or sleepy. You feel faint or lose consciousness. You have an usually fast heart rate. 4 General Instructions [facility] [address] [place] [address] Phone #: ext- [phone] 06/19/2020 14:37 Patient: SCARLET SOLOMON Sex: F : 2000 Age: 20y [id number] [employer]. [address] [place] [address], [place] [address]. All rights reserved. This information is not intended as asubstitute for professional medical care. Always follow your healthcare professional's instructions. You have been given the following additional information: Abdominal Pain, Possible Appendicitis, Repeat Exam (Female)(Rola ctronically signed by EDIL Moreno 06/19/2020 21:42) Name Value Range Interpretation Code Description Data Shira rce(s) Supporting Document(s) ID Date Data Source [id number] 06/19/2020 02:47:00 PM EST [facility] 1 Clinical Report - Nurses [facility] [address] [place] [address] Phone #: ext- [phone] 06/19/2020 14:37 Patient: [...] Uses depo 2 Clinical Report - Nurses [facility] [address] [place] [address] Phone #: ext- [phone] 06/19/2020 14:37 Patient: [...] PA notified. 3 Clinical Report - Nurses [facility] [address] [place] [address] Phone #: ext- [phone] 06/19/2020 14:37 Patient: [...] to radiology by wheelchair with mask and forensic technician. --15: Miri Whitehead R.N.Patient returned from sonogram by wheelchair with forensic technician. --15:56 06/19/20 Nasreen Wells R.N.15:56 06/19/20. [...] if they 4 Clinical Report - Nurses [facility] [address] [place] [address] Phone #: ext- [phone] 06/19/2020 14:37 Patient: SCARLET SOLOMON Sex: F [...] RR: 16. O2 saturation: 100%. --16:57 06/19/20 [facility]( Pt attempted to give GI4 but [...] entry - 17:23 06/19/20. Patient transported to CT by wheelchair with forensic technician. --17:33 06/19/20Nasreen Wells R.N.Patient returned from CT by wheelchair with forensic technician. --17:33 06/19/20 Nasreen Wells R.N.18:03 06/19/20. BP: 132/70. MAP: 90. HR: 85. RR: 16. O2 saturation: 99%. --18:03 06/19/20 [facility] Csmg315:16 06/19/2020 Site #1 removed upon discharge. Pressu re dressing applied. --18:16 06/19/20 Karma Eddy R.N. 5 Clinical Report - Nurses [facility] [address] [place] [address] Phone #: ext- [phone] 06/19/2020 14:37 Patient: SCARLET SOLOMON Sex: F [...] rce(s) Supporting Document(s) ID Date Data Source [id number] 06/19/2020 02:47:00 PM [facility] 1 Clinical Report - Physicians/Mid Levels [facility] [address] [place] [address] Phone #: ext- [phone] 06/19/2020 14:37 Patient: [...] saturation: 96%. Temp: 97.4 F.Pain level now: 710. Have been reviewed as normal. Oxygen saturation normal. 2 Clinical Report - Physicians/Mid Levels [facility] [address] [place] [address] Phone #: ext- [phone] 06/19/2020 14:37 Patient: SCARLET SOLOMON Sex: F [...] exam. The exam was performed by a registered pharmacy technician. The study wasinterpreted by the ra [...] CBC w Diff: (STELLA: 06/19/2020 15:01) ( MsgRcvd 06/19/2020 15:36) Final results Test Result Flag [...] 7.0) 3 Clinical Report - Physicians/Mid Levels [facility] [address] [place] [address] Phone #: ext- [phone] 06/19/2020 14:37 Patient: [...] Male GFR Interprentation 20-49 yrs >60 mL/min Yyfuyn48-00 yrs >56 mL/min Normal 60-69 yrs >49 mL/min Normal 70-79yrs>42 mL/min Normal 80 and above >35 mL/min Normal Female GFRInterpretation 20-39 yrs >60 mL/min Normal 40-49 yrs >58 mL/minNormal 50-59 yrs >51 mL/min Normal 60-69 yrs >45 mL/min Uwgzei52-82 yrs >39 mL/min Normal 80 and above >32 mL/min NormalLipase: (STELLA: 06/19/2020 15:01) ( MsgRcvd 06/19/2020 15:47) Final results Test Result Flag Units (Reference) LIPASE 33 U/L (13 - 60)Urinalysis: (STELLA: 06/19/2020 14:50) ( MsgRcvd 06/19/2020 15:37) Final results Test Result Flag Units (Reference) URINALYSIS URINALYSIS SOURCE R COLOR yellow (NORMAL: Yello CLARITY clear (NORMAL: Clear 4 Clinical Report - Physicians/Mid Levels [facility] [address] [place] [address] Phone #: ext- [phone] 06/19/2020 14:37 Patient: [...] 15:01) ( [facility] 06/19/2020 15:29) Final results Test Result Flag Units (Reference) LACTIC ACID 1.6 MMOL/L (0.2 - 2.2)US Pelvis: (STELLA: 06/19/2020 15:02) ( MsgRcvd 06/19/2020 16:03) In ProgressUS PELVICReason(s): Pelvic PainTRANSPORTATION: WC IV? O2? Oxygen?(No) Room: [facility] Renal: (STELLA: 06/19/2020 15:02) ( MsgRcvd 06/19/2020 17:49) In ProgressUS RENALReason(s): Renal Colic/FlankTRANSPORTATION: WC IV? O2? Oxygen?(No) Room: [place] [address] PHONE: [phone] FAX: [phone] Name .................. : JUANITO Waddell Acct Number.................. : [id number] ROOM. ................. : -1A MR Number ................... : [id number] Stay type ............. : E/R Discharge Date......... ... : Admit Date ......... : 1 08/19/19 Admit Phys .................... : COONEYNORM Date of ....... : 2000 Family Phys ................... : UNKNOWN CO Phone .................. : [phone] Age ................................ : 20 Film# .................. .:[id number] Sex ................................. : F Unsigned transcriptions are preliminary reports and do not represent a medical or legal document RENAL [id number] COMPLETE:06/19/20 16:03 KNB 54360 Reason(s): Renal Colic/Flank BILATERAL RENAL ULTRASOUND: HISTORY: Renal colic and flank pain. FINDINGS: The right kidney measures 1.1 cm. The left kidney measures 11.4 cm. No hydronephrosis noted. 5 Clinical Rep ort - Physicians/Mid Levels [facility] [address] [place] [address] Phone #: ext- [phone] 06/19/2020 14:37 Patient: SCARLET SOLOMON Sex: F : 2000 Age: 20y Bilateral ureteral jets noted in the bladder. Cortical echotexture appears normal. No renal calculi noted. IMPRESSION: Unremarkable bilateral renal ultrasound. Electronically Reviewed and Signed By DCTNAME , SIGNDATE, [facility] Transcribe Initials: BENJAMIN , Transcribe Date: 06/19/20 17:48, Dictation Date: <<REPDIST>> Page 1 of 1 US Abdomen Limited: (STELLA: 06/19/2020 15:02) ( MsgRcvd 06/19/2020 16:03) In Progress US ABD LIMITED Reason(s): RLQ PAIN TRANSPORTATION: WC IV? O2? Oxygen?(No) Room: ED : No CMTS: Appy? . Note - Tests: (ABD Limited US- neg, appendix US).PROGRESS AND PROCEDURESCourse of Care: 18:06 Jun 19 2020. Evaluation after observation and results of tests back. (D/W Davie he recommended CT again, CT is negative, pt is agreeable with dx and txplan stop taking Cipro and follow up with your PCP.). Patient counseled in person regarding the patient's stable condition, test results, diagnosis and need for follow-up. Patient agrees with plan of care. 18:07 Jun 19 2020. Disposition: Discharged home in good and improved condition (18:07 Jun 19 2020).CLINICAL IMPRESSION Acute right lower quadrant abdominal pain.INSTRUCTIONS Drink plenty of fluids. 6 Clinical Report - Physicians/Mid Levels [facility] [address] [place] [address] Phone #: ext- [phone] 06/19/2020 14:37 [id number] Sex: F : 2000 Age: 20y (Continue [...] rce(s) Supporting Document(s) ID Date Data Source [id number] 06/19/2020 03:49:00 PM EST [facility] Name Value Range Interpretation Code Description Data [facility] rce(s) Supporting Document(s) COMPREHENSIVE METABOLIC PANEL [facility] COMPREHENSIVE METABOLIC PANEL Sodium [Moles/volume] in Serum or Plasma 139 mEq/L 134 - 153 [facility] Potassium [Moles/volume] in Serum or Plasma 4.2 mEq/L 3.6 - 5.0 [facility] Chloride [Moles/volume] in Serum or Plasma 102 mEq/L 98 - 107 [facility] Carbon dioxide, total [Moles/volume] in Serum or Plasma 30 MEQ/L 22 - 30 [facility] Glucose [Mass/volume] in Serum or Plasma 118 MG/DL 65 - 110 H [facility] BUN 10 MG/DL 7 - [facility] Creat[facility] [Mass/volume] in Serum or Plasma 0.6 MG/DL 0.7 - 1.5 L [facility] BUN/CREAT 17 8 - 27 [facility] al Protein [Mass/volume] in Serum or Plasma 7.7 G/DL 6.3 - 8.2 [facility] Albumin [Mass/volume] in Serum or Plasma 4.6 G/DL 3.9 - 5.0 [facility] Globulin [Mass/volume] in Serum by calculation 3.1 GM/DL 2.4 - 3.2 [facility] A/G RATIO 1.5 0.8 - 2.0 [facility] Calcium [Mass/volume] in Serum or Plasma 9.6 MG/DL 8.4 - 10.2 [facility] Bilirubin.total [Mass/volume] in Serum or Plasma 0.7 MG/DL 0.2 - 1.3 [facility] Alkaline phosphatase [Enzymatic activity/volume] in Serum or Plasma 101 U/L 38 - 126 [facility] Aspartate aminotransferase [Enzymatic activity/volume] in Serum or Plasma 25 U/L 5 - 40 [facility] Alanine aminotransferase [Enzymatic activity/volume] in Seru m or Plasma 21 U/L 7 - 56 [facility] Anion gap 3 in Serum or Plasma 7.0 mmol/L 8.0 - 16.0 L [facility] AGE [address] [facility] al NON-AA GFR >60 mL/min [facility] ital AFR AMER GFR >60 mL/min [facility] Ho spital Male GFR In [...] >32 mL/min Normal ID Date Data Source [id number] 06/19/2020 03:47:00 PM [facility] Name Value Range Interpretation Code Description Data Shira rce(s) Supporting Document(s) Lipase [Enzymatic activity/volume] in Serum or Plasma 33 U/L 13 - 60 [facility] ID Date Data Source [id number] 06/19/2020 03:36:00 PM [facility] Name Value Range Interpretation Code Description Data Shira rce(s) Supporting Document(s) CBC W/AUTOMATED DIFF [facility] COMPLETE BLOOD COUNT Leukocytes [#/volume] in Blood by Automated count 10.2 10^3/uL 4.2 - 11.0 [facility] Erythrocytes [#/volume] in Blood by Automated count 4.88 10^6/uL 4. 20 - 5.40 [facility] Hemoglobin [Mass/volume] in Blood 14.8 g/dL 12.0 - 16.0 [facility] Hematocrit [Volume Fraction] of Blood by Automated count 43.2 % 3 7.0 - 47.0 [facility] Erythrocyte mean corpuscular volume [Entitic volume] by Auto mated count 88.5 fL 81.0 - 101 [facility] Erythrocyte mean corpuscular hemoglobin [Entitic mass] by Automated count 30.3 pg 27.0 - 34.0 [facility] Erythrocyte mean corpuscular hemoglobin concentration [Mass/volume] by Automated count 34.3 g/dL 31.0 - 36.0 [facility] Erythrocyte distribution width [Ratio] by Automated count 11.5 % 11.5 - 14.5 [facility] Platelets [#/volume] in Blood by Automated count 391 10^3/uL 150 - 45 0 [facility] Platelet mean volume [Entitic volume] in Blood by Automated count 8.5 fL 7.4 - 10.4 [facility] Neutrophils/100 leukocytes in Blood by Automated count 69.5 % 37. 0 - 80.0 [facility] Lymphocytes/100 leukocytes in Blood by Manual count 22.3 % 25.0 - 40.0 L [facility] Monocytes/100 leukocytes in Blood by Automated count 6.8 % 3.0 - 8.0 [facility] Eosinophils/100 leukocytes in Blood by Automated count 0.6 % 0.0 - 7.0 [facility] Basophils/100 leukocytes in Blood by Automated count 0.3 % 0.0 - 2.5 [facility] %IG 0.5 % 0.0 - 0.0 [facility] %NRBC 0.0 % 0.0 - 0.0 [facility] al Neutrophils [#/volume] in Blood by Automated count 7.10 10^3/uL 2.00 - 6.90 H [facility] Lymphocytes [#/volume] in Blood by Automated count 2.28 10^3/uL 0.60 - 3.40 [facility] Monocytes [#/volume] in Blood by Automated count 0.69 10^3/uL 0.00 - 0.90 [facility] Eosinophils [#/volume] in Blood by Automated count 0.06 10^3/uL 0.00 - 0.70 [facility] Basophils [#/volume] in Blood by Automated count 0.03 10^3/uL 0.00 - 0.20 [facility] #IG 0.05 10^3/uL 0.00 - 0.10 [facility] H ospital #NRBC 0.00 10^3/uL 0.00 - 0.00 [facility] ospital MANUAL DIFF NOT INDICATED [facility] RBC MORPH NOT INDICATED [facility] spital ID Date Data Source [id number] 06/19/2020 03:29:00 PM [facility] Name Value Range Interpretation Code Description Data Shira rce(s) Supporting Document(s) Lactate [Moles/volume] in Serum or Plasma 1.6 MMOL/L 0.2 - 2.2 [facility] ID Date Data Source [id number] 06/19/2020 03:36:00 PM [facility] Name Value Range Interpretation Code Description Data Shira rce(s) Supporting Document(s) [facility]IS [facility] URINALYSIS SOURCE R [facility] al COLOR yellow NORMAL: Yellow [facility] ospital CLARITY clear NORMAL: Clear [facility] spital Specific gravity of Urine by Test strip 1.015 1.001 - 1.030 [facility] pH 8 5 - 9 [facility] Glucose [Mass/volume] in Urine by Test strip NORM NORMAL: Negat [facility] Bilirubin.total [Presence] in Urine by Test strip NEG NORMAL: Negative [facility] Ketones [Presence] in Urine by Test strip NEG NORMAL: Negative [facility] Protein [Mass/volume] in Urine by Test strip NEG NORMAL: Negat [facility] Nitrite [Presence] in Urine by Test strip NEG NORMAL: Negative [facility] BLOOD 25 NORMAL: Negative [facility] Leukocyte esterase [Presence] in Urine by Test strip NEG MAURIZIO L: Negative [facility] Urobilinogen [Mass/volume] in Urine by Test strip NOR less [place] n 1.0 mg/dL [facility] MICROSCOPIC See Below [facility] [facility] WBC 1 - 3 NORMAL: NONE SEEN [facility] Erythrocytes [#/volume] in Urine by Test strip 3 - 5 NORMAL: NON E SEEN [facility] EPITHELIAL MODERATE NORMAL: NONE SEEN [facility] Bacteria [Presence] in Urine sediment by Light microscopy 1+ SMALL NORMAL: NONE SEEN [facility] ID Date Data Source [id number] 06/16/2020 10:19:00 PM EST [facility] 1 OrderSheet [facility] Emergency Department [address] [place] [address] Phone #: [phone] noh- [phone] 06/16/2020 22:13 Patient: SCARLET SOLOMON Sex: F : 2000 Age: 20yWEIGHT:86.1 kg (S) HEIGHT:66 inches (S) BMI:30.7ALLERGIES: NoneCHIEF COMPLAINT: abdominal pain, nauseaDIAGNOSIS: Pyelonephritis, Urinary tract infectious diseaseLAB ORDERSOrder Description Priority Entered Acknowledged InitialedCBC w Diff STAT 22:37 06/16/2020 23:03 Miri Whitehead Riccardo R.N. M.D.;CMP STAT 22:37 06/16/2020 23:03 Miri Whitehead Riccardo R.N. M.D.;Lipase STAT 22:37 06/16/2020 23:03 Miri Whitehead Riccardo R.N. M.D.;Urinalysis (Clean STAT 22:37 06/16/2020 22:40 Anum Whitehead Riccardo R.N. M.D.;Beta-HCG, Qual STAT 22:37 06/16/2020 23:03 Whitehead, TheaSerum Benedict Luque R.N., M.D.;Lactic Acid STAT 22:37 06/16/2020 23:03 Whitehead, Miri Benedict Luque R.N., M.D.;Culture, Urine STAT 23:27 06/16/2020 23:28 Miri Whitehead(Urine, Clean Turrin, Benedict R.N.Catch) Soumya;DIAGNOSTIC STUDY ORDERSOrder Description Priority Entered Acknowledged InitialedCT Abd PEL W/ IV STAT 23:30 06/16/2020 00:12 06/17/2020Contrast Only Benedict Luque Laura(Oxygen?(No)) Soumya; R.N.(IV?(Yes)) Reason for Study: RLQ, rt abdomen pain, infected urineMEDICATION/IV/DRIP/FLUID ORDERS 2 OrderSheet [facility] [address] [place] [address] Phone #: ext- [phone] 06/16/2020 22:13 Patient: SCARLET SOLOMON Sex: F : 2000 Age: 20yOrder Description Priority Entered Acknowledged InitialedNS IV 1000 mL 22:38 06/16/2020 22:58 Melaragno,Bolus: : Bolus 1000 Benedict Luque R.N.mL (X1) Soumya;Toradol 15 mg IVP 22:38 06/16/2020 22:58 Melarakendrick,X1 dose: 15 mg TerririnBenedicta R.N.(NOW x1) Soumya;Zofran 4 mg IVP X 1 22:38 06/16/2020 22:57 Melaragno,dose: 4 mg (NOW TurBenedict toma R.N.x1) Soumya;cefTRIAXone 23:27 06/16/2020 23:37 Miri Whitehead(1gm/50ml) IVPB TerririnBenedict R.NElder1000 mg with M.D.;Dextrose 50 mlspike bag (D5W)levoFLOXacin PO 01:02 06/17/2020 01:25 Charley, Emds461 mg Benedict Luque R.N., M.D.;Pyridium PO 200 01:03 06/17/2020 01:25 Charley Theamg Benedict Luque R.N., M.D.;GENERAL ORDER SOrder Description Priority Entered Acknowledged InitialedNPO 22:37 06/16/2020 22:40 Miri Whitehead Riccardo R.N. M.D.;Saline Lock 22:37 06/16/2020 23:03 Miri Whitehead Riccardo R.N. M.D.;[Electronically signed by Miri Whitehead R.N. (01:28 06/17/2020)][Electronically signed by Benedict Luque M.D. (04:42 06/17/2020)][Electronically locked by Miri Whitehead R.N. (01:28 06/17/2020)] Name Value Range Interpretation Code Description Data Shira rce(s) Supporting Document(s) ID Date Data Source [id number] 06/16/2020 10:19:00 PM EST [facility] 1 Medication Reconciliation Report [facility] [address] [place] [address] Phone #: ext- [phone] 06/16/2020 22:13 Patient: [...] 06/17/2020 1:15:00 AM 2 Medication Reconciliation Report [facility] [address] [place] [address] Phone #: ext- [phone] 06/16/2020 22:13 Patient: SCARLET SOLOMON Sex: F : 2000 Age: 20yThe following Medications were prescribed to the patient:Cipro 500 mg tablet Take 1 tablet twice a day for 10 days -- Dispense 20 tablet. Refills: 0. Substitutionpermitted.Pharmacy - [facility] [phone] ; [place] [address]. .ibuprofen 600 mg tablet Take 1 tablet four times a day as needed for pain for 7 days -- Dispense 28tablet. Refills: 0. Substitution permitted.Pharmacy - [facility] [id number] ; [place] [address]. .Pyridium 100 mg tablet Take 1 tablet three times a day for 5 days -- Dispense 15 tablet. Refills: 0.Substitution permitted.Pharmacy - [facility] [phone] ; [place] [address]. . -- Benedict Luque M.D. Name Value Range Interpretation Code Description Data Shira rce(s) Supporting Document(s) ID Date Data Source [id number] 06/16/2020 10:19:00 PM [facility] 1 Medication Administration Record [facility] [address] [place] [address] Phone #: ext- [phone] 06/16/2020 22:13 Patient: SCARLET SOLOMON Sex: F : 2000 Age: 20yWeight: 86.1 kgHeight/Length: 66 inBMI: 30.7ALLERGIES: None Date/Time Medication Administered Medication OrderedStart SODIUM CHLORIDE [IV] NS IV 1000 mL Bolus: : Bolus [id number] 06/16/2020 Dose: IV Fluids mL (X1)Beth Cuellar, R.NElder Bolus: 1000 mL wide open---- Dispensed: 1000 mL bagStop Site: #1 left AC23:58 06/16/2020Miri Whitehead RElderNElderGiven TORADOL [IVP] (KETOROLAC Toradol 15 mg IVP X1 dose: 15 mg22:57 06/16/2020 TROMETHAMINE) (NOW x1)Beth Cuellar RElderNElder Dose: 15 mg IVP Site: #1 left [...] rce(s) Supporting Document(s) ID Date Data Source [id number] 06/16/2020 10:19:00 PM EST [facility] 1 General Instructions [facility] [address] [place] [address] Phone #: ext- [phone] 06/16/2020 22:13 Patient: [...] Dispense 20 tablet. Refills: 0. Substitutionpermitted.Pharmacy - [facility] [id number] ; [place] [address]. .ibuprofen 600 mg tablet Take 1 tablet four times a day as needed for pain for 7 days -- Dispense 28tablet. Refills: 0. Substitution permitted.[facility] [address] ; [place] [address]. .Pyridium 100 mg tablet Take 1 tablet three times a da y for 5 days -- Dispense 15 tablet. Refills: 0.Substitution permitted. 2 General Instructions [facility] Department [address] [place] [address] Phone #: ext- [phone] 06/16/2020 22:13 Patient: SCARLET SOLOMON Sex: F : 2000 Age: 20yPharmacy - [facility] [phone] ; [place] [id number]. .Follow-up:Return to the emergency department as needed. [...] for this problem include: 3 General Instructions [facility] [address] [place] [address] Phone #: ext- [phone] 06/16/2020 22:13 Patient: SCARLET SOLOMON Sex: F [...] taking blood thinners.Home care 4 General Instructions [facility] [address] [place] [address] Phone #: ext- [phone] 06/16/2020 22:13 Patient: [...] find out the results. 5 General Instructions [facility] [address] [place] [address] Phone #: ext- [phone] 06/16/2020 22:13 Patient: SCARLET SOLOMON Sex: F : 2000 Age: 20yIf you had an X-ray, CT scan, or other diagnostic test, you will be notified of any new findings thatmay affect your care.Call [phone] if any of the following occur: Trouble [...] when crying, sunken eyes, or dry mouth [phone] [employer]. [address] [place] [address]. All rights reserved. This information is not intended as asubstitute for professional medical care. Always follow your healthcare professional's instructions.Fever Control (Adult)A fever is a normal reaction of your body to an illness. The temperature itself usually isn't harmful. Itactually helps your body fight infections. You don't need to treat a fever unless you feel veryuncomfortable. 6 General Instructions [facility] [address] [place] [address] Phone #: ext- [phone] 06/16/2020 22:13 Patient: [...] any of these occur: 7 General Instructions [facility] [address] [place] [address] Phone #: ext- [phone] 06/16/2020 22:13 Patient: [...] place where infectious diseases arecommon. 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 This usually goes away without aproblem. But, some places have more serious diseases. Fever with certain other symptoms maymean you have a serious illness. Symptoms to watch for include diarrhea, skin rashes, insect bites,and skin boils, or infections. Your provider may ask you: What you did on your trip 8 General Instructions [facility] [address] [place] [address] Phone #: ext- [phone] 06/16/2020 22:13 Patient: SCARLET SOLOMON Sex: F : 2000 Age: 20y How long you were there Where you stayed (hotel, [place], tent) What you ate and drank If you were bitten by insects or other bugs If you swam in freshwater If you had sex or got a tattoo or piercing while you were thereCheck the CDC to get more information about specific infectious diseases in the areas you havetraveled. [phone] [employer]. [address] [place] [address], [place] [address]. All rights reserved. This information is not intended as asubstitute for professional medical care. Always follow your healthcare professional's instructions. You have been given the following additional information: Pyelonephritis, Female (Adult) Fever Control (Adult) Return to work in three days.(Electronically signed by Benedict Luque M.D. 06/17/2020 04:42) Name Value Range Interpretation Code Description Data Shira rce(s) Supporting Document(s) ID Date Data Source [id number] 06/16/2020 10:19:00 PM EST [facility] 1 Clinical Report - Nurses [facility] [address] [place] [address] Phone #: ext- [phone] 06/16/2020 22:13 Patient: SCARLET SOLOMON Sex: F : 2000 Age: 20yTRIAGEArrived by private vehicle. Historian: patient.Acuity: LEVEL 3.Chief Complaint: FEVER, SORE THROAT, COUGH, NAUSEA, VOMITING, DIARRHEA, ABDOMINALPAIN and BACK PAIN.Alert.Onset. 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 Seen within the last 24 hours in a clinic; labs done; treatment- other medication. ([facility] [address] [facility] for sore throat and abominal pain. She was testedfor strep but she said she does not have those results yet. 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 --22:28 06/16/20 Mary Lemon R.N.22:14 06/16/20. BP: 132/65. MAP: 87. HR: 84. RR: 18. O2 saturation: 99%. Temp: 98.6 F. Pain level now:12/22. --22:28 06/16/20 Mary Lemon R.N.Weight: 86.1 kg stated. Height/Length: 66 inches Per Patient. BMI: 30.7. --22:25 06/16/20 Mary Lemon R.N.MedicationsZoloft Oral. --22:06/16/20 Mary Lemon R.N. Cetirizine HCl Oral (Tablet 10 mg), daily. --22:06/16/20 Mary Lemon R.N. ARIPiprazole (sensor) Oral (Tablet [...] the [place] 2 Clinical Report - Nurses [facility] [address] [place] [address] Phone #: ext- [phone] 06/16/2020 22:13 Patient: [...] RN. Information reviewed with patient. Verbalizes understanding. --:06/16/20 Beth Cuellar R.N. 3 Clinical Report - Nurses [facility] [place] [address] Phone #: ext- [phone] 06/16/2020 22:13 Patient: SCARLET SOLOMON Sex: F : 2000 Age: 20y 22:57 06/16/2020 Toradol (Ketorolac Tromethamine) IVP 15 mg given via site #1. Allergies verified and confirmed 5 rights. IV patency established. IV site checked: no pain, redness, or swelling. IV flushed thoroughly pre- and post- medication administration. IVP given by RN. Information reviewed with patient. Verbalizes understanding. --:58 06/16/20 Beth Cuellar R.N. 22:58 06/16/2020 Started bag #1 1000 mL IV Fluids Sodium Chloride; bolus of 1000 mL wide open via site #1 via IV pump. Allergies verified and confirmed 5 rights. IV patency established. IV site checked: no pain, redness, or swelling. IV flushed thoroughly pre- and post-medication administration. Information reviewed with patient. Verbalizes understanding. --:58 06/16/20 Beth Cuellar R.N. Patient ID band [...] of allergic reaction and precautions. Verbalizes understanding. --:06/17/20 Miri Whitehead R.N.DISPOSITION / DISCHARGE 01:06/17/20. Condition at departure: stable. No learning barriers present. Discharge instructions 4 Clinical Report - Nurses [facility] [address] [place] [address] Phone #: ext- [phone] 06/16/2020 22:13 Patient: SCARLET SOLOMON Sex: F : 2000 Age: 20y provided and reviewed with the patient. Reviewed medication(s) side effects, precautions, dosing and course information. Prescription(s) sent electronically to pharmacy. Work note given. Patient verbalized understanding. Written instructions provided in Bermudian. The patient was discharged by the physician. She was discharged home. She left ambulatory and via private vehicle. Patient driving. --:06/17/20 Miri Whitehead R.N. 01:20 06/17/20. BP: 129/64. MAP: 85. HR: 81. RR: 16. O2 saturation: 99% on room air. Temp: deferred. Pain level now: 10. --:06/17/20 Miri Whitehead R.N. 01:20 06/17/2020 Site #1 removed upon discharge. Pressure dressing and bandage applied. --:06/17/20 Miri Whitehead R.N.Locked/Released at 06/17/2020 01:28 by Miri Whitehead R.N. Name Value Range Interpretation Code Description Data Shira rce(s) Supporting Document(s) ID Date Data Source [id number] 06/16/2020 10:19:00 PM EST [facility] 1 Clinical Report - Physicians/Mid Levels [facility] [address] [place] [address] Phone #: ext- [phone] 06/16/2020 22:13 Patient: [...] Nephropathy. 2 Clinical Report - Physicians/Mid Levels [facility] [address] [place] [address] Phone #: ext- [phone] 06/16/2020 22:13 Patient: [...] EST 3 Clinical Report - Physicians/Mid Levels [facility] [address] [place] [address] Phone #: ext- [phone] 06/16/2020 22:13 Patient: SCARLET SOLOMON Sex: F : 2000 Age: 20yMRN: [id number] STUDY RECEIVED:Jun 17, 2020 12:08:14 AM ESTGENDER: F MODALITY TYPE:CT\\SRDOB: [birth year] DESCRIPTION: CT ABD PELVIS W/ IV ONLYINSTITUTION[facility] ORDER[facility] PHYSICIAN: Benedict JonesION #: [id number] HISTORY: RLQ, rt abdomen pain, infected urine. Accumulated DLP-1086.3 mGy*cm,Estimated DLP-1079.3 mGy*cm. CGT260, 75mL, A0S01 7DA, 01/04. Neg Beta. BUN-13, Createnine-.7, GFR>60. Time Out performed. Correct patient with 2 identifiers, type and amount of contrast used, correct bodypart and side all verified prior to examination. - RLB (Hx) / SAGITTAL (DICOM Hx)CT Abdomen/PelvisHistory:RLQ, rt abdomen pain, infected urine. Accumulated DLP- 1086.3 mGy*cm, Estimated DLP-1079.3mGy*cm. XNF901, 75mL, [id number], 01/04. Neg Beta. BUN-13, Createnine-.7, GFR >60. Time Outperformed. Correct patient with 2 identifiers, type and amount of contrast used, correct body part and sideall verified prior to examination. - RLB (Hx) / SAGITTAL (DICOM Hx)Technique:CT ABD PELVIS W/ IV ONLYDose length product (mGy-cm): Not providedReformations: NoneContrast: With; ISO 370, 75mL.Comparison:CT\\MI\\SR - CT ABD PELV W/O ORAL W/O [...] grossly normal. 4 Clinical Report - Physicians/Mid Levels [facility] [address] [place] [address] Phone #: ext- [phone] 06/16/2020 22:13 Patient: SCARLET SOLOMON Sex: F [...] 17, 2020 12:56:41 AM EST by:Jack Piña, [place] [employer]. Study type: abdomen and [...] CT ABD //T// PELVIS W/ IV ONLY [place] [address] [place] [address] ---------NAME--------- NUMBER SEX AGE ADMIT DISC. XRAY# F/C TYPE JUANITO Waddell [id number] 06/16/[id number] SB4 E/R DATE OF : 2000 M/R# [id number] PH#: [phone] TR-06 LOCATION: EMERGENCY DEPT TRANSCRIBED: 06/17/[address] ABD //T// PELVIS W/ IV ONLY [id number] COMPLETED:06/17/20 57 axel [address] Reason(s): RLQ, rt abdomen pain, infected urine PHYSICIAN: DAVID LESLY R A D I O L O G Y R E P O R T PATIENT HISTORY: RLQ, rt abdomen pain, infected urine. Accumulated DLP-1086.3 mGy*cm, Estimated DLP-1079.3 mGy*cm. MFF049, 75mL, [id number], 01/04. Neg Beta. BUN-13, Createnine-.7, GFR >60. Time Out performed. Correct patient with 2 identifiers, type and amount of contrast used, correct body part and side all verified prior to examination. - RLB / SAGITTAL (DICOM Hx) CT Abdomen/Pelvis History: RLQ, rt abdomen pain, infected urine. Accumulated DLP-1086.3 mGy*cm, Estimated DLP-1079.3 mGy*cm. BGI407, 75mL, [id number], 01/04. Neg Beta. BUN-13, 5 Clinical Report - Physicians/Mid [facility] Emergency Department [address] [place] [address] Phone #: ext- [phone] 06/16/2020 22:13 Patient: [...] 16.0) 6 Clinical Report - Physicians/Mid Levels [facility] [address] [place] [address] Phone #: ext- [phone] 06/16/2020 22:13 Patient: [...] Male GFR Interprentation 20-49 yrs >60 mL/min Eibumn09-60 yrs >56 mL/min Normal 60-69 yrs >49 mL/min Normal 70-79yrs>42 mL/min Normal 80 and above >35 mL/min Normal Female GFRInterpretation 20-39 yrs >60 mL/min Normal 40-49 yrs >58 mL/minNormal 50-59 yrs >51 mL/min Normal 60-69 yrs >45 mL/min Sbauyd92-17 yrs >39 mL/min Normal 80 and above >32 mL/min NormalLipase: (STELLA: 06/16/2020 22:50) ( MsgRcvd 06/16/2020 23:21) Final results Test Result Flag Units (Reference) 7 Clinical Report - Physicians/Mid [facility] Emergency Department [address] [place] [address] Phone #: ext- [phone] 06/16/2020 22:13 Patient: [...] NEGATIVE (NORMAL: NEGAT { KIT LOT # [id number] ){ KIT EXP DATE 05-20-21 ){ PROCEDURAL CONTROL VALID ) Lactic Acid: (STELLA: 06/16/2020 22:50) ( Mscvd 06/16/2020 23:09) Final results Test Result Flag [...] no 8 Clinical Report - Physicians/Mid Levels [facility] [address] [place] [address] Phone #: ext- [phone] 06/16/2020 22:13 Patient: [...] Substitution 9 Clinical Report - Physicians/Mid Levels [facility] [address] [place] [address] Phone #: ext- [phone] 06/16/2020 22:13 Patient: SCARLET SOLOMON Sex: F : 2000 Age: 20y permitted. Pharmacy - [facility] [id number] ; [place] [address]. . ibuprofen 600 mg tablet Take 1 tablet four times a day as needed for pain for 7 days -- Dispense 28 tablet. Refills: 0. Substitution permitted. [facility] - [facility] [address] ; [place] [address]. Phone: . Pyridium 100 mg tablet Take 1 tablet three times a day for 5 days -- Dispense 15 tablet. Refills: 0. Substitution permitted. [facility] [phone] ; [place] [address]. . Follow-up: Return to the emergency department [...] to plan of care.(Electronically signed by Benedict Luque M.D. 06/17/2020 04:42) Name Value Range Interpretation Code Description Data Shira rce(s) Supporting Document(s) ID Date Data Source [id number] 06/17/2020 12:56:00 AM [place] [address] [facility] [place] [address] ---------NAME--------- NUMBER SEX AGE ADMIT DISC. XRAY# F/C TYPE JUANITO NOVAK F [id number] 06/16/2019690922 SB4 E/R DATE OF : 2000 M/R# [id number] #: [phone] TR-06 LOCATION: EMERGENCY DEPT TRANSCRIBED: 06/17/[address] ABD //T// PELVIS W/ IV ONLY [id number] COMPLETED:06/17/20 57 axel [address] Reason(s): RLQ, rt abdomen pain, infected urine PHYSICIAN: DAVID GRACE == R A D I O L O G Y R E P O R T PATIENT HISTORY:RLQ, rt abdomen pain, infected urine. Accumulated DLP-1086.3 mGy*cm, EstimatedDLP-1079.3 mGy*cm. FEY044, 75mL, [id number], 01/04. Neg Beta. BUN-13,Createnine-.7, GFR >60.Time Out performed. Correct patient with 2 identifiers, type and amount ofcontrast used, correct body part and side all verified prior to examination. -RLB / SAGITTAL (DICOM Hx)CT Abdomen/PelvisHistory:RLQ, rt abdomen pain, infected urine. Accumulated DLP-1086.3 mGy*cm, EstimatedDLP-1079.3 mGy*cm. QAH888, 75mL, [id number], 01/04. Neg Beta. BUN-13,Createnine-.7, GFR >60. Time [...] rce(s) Supporting Document(s) ID Date Data Source [id number] 06/20/2020 11:44:00 AM EST [facility] Name Value Range Interpretation Code Description Data Shira rce(s) Supporting Document(s) CULTURE URINE [facility] _CULTURE URINE_$$[id number]$$521400$$350247$$350490$$180824$$118497$$925814$$809864$$270065$$ 197278$$139265$$512186$$155650$$231160$$813830$$453768$$700662$$324296$$099551$$ 785436$$613239$$141663$$602443$$491508$$071447$$443690$$533453 -- Continued on next page --Patient: JUANITO NOVAK F Order: [id number] Page 2Culture: CULTURE URINE Status: Final ==== -- Continued on next page --Patient: JUANITO NOVAK F Order: [id number] Page 2Culture: CULTURE URINE Status: Prelim =====$$[id number]$$[id number] DATE/TIME: 06/20/2020 11:06Culture: CULTURE URINE Status: FinalUrine Culture,Comprehensive: N0Ctlmd urogenital flora25,000-50,000 colony forming units per mL Previous result entered on 06/19/2020 02:03 ET Specimen has been received and testing has been initiated.P1 Test performed by: [facility] CLIA #: [id number] [address] [place] [address] [id number] [facility] [id number] Director : Keith oHllis MD NPI #:Special Services Director : 06/19/20.0712.XMT.SENT REF 06/20/20.1144.XMT.SENT REF ID Date Data Source [id number] 06/16/2020 11:24:00 PM [facility] Name Value Range Interpretation Code Description Data Shira rce(s) Supporting Document(s) HCG SERUM QUAL NEGATIVE NORMAL: NEGATIVE [facility] HCG SERUM QL REENTER NEGATIVE NORMAL: NEGATIVE [facility] { KIT LOT # [id number] ){ KIT EXP DATE 05-20-21 ){ PROCEDURAL CONTROL VALID ) ID Date Data Source [id number] 06/16/2020 11:21:00 PM [facility] Name Value Range Interpretation Code Description Data Shira rce(s) Supporting Document(s) Lipase [Enzymatic activity/volume] in Serum or Plasma 30 U/L 13 - 60 [facility] ID Date Data Source [id number] 06/16/2020 11:21:00 PM [facility] Name Value Range Interpretation Code Description Data Shira rce(s) Supporting Document(s) COMPREHENSIVE METABOLIC PANEL [facility] COMPREHENSIVE METABOLIC PANEL Sodium [Moles/volume] in Serum or Plasma 135 mEq/L 134 - 153 [facility] Potassium [Moles/volume] in Serum or Plasma 3.9 mEq/L 3.6 - 5.0 [facility] Chloride [Moles/volume] in Serum or Plasma 100 mEq/L 98 - 107 [facility] Carbon dioxide, total [Moles/volume] in Serum or Plasma 28 MEQ/L 22 - 30 [facility] Glucose [Mass/volume] in Serum or Plasma 99 MG/DL 65 - 110 [facility] BUN 13 [facility]DL 7 [facility] [Mass/volume] in Serum or Plasma 0.7 MG/DL 0.7 - 1.5 [facility] BUN/CREAT 19 8 - 27 [facility] al Protein [Mass/volume] in Serum or Plasma 7.7 G/DL 6.3 - 8.2 [facility] Albumin [Mass/volume] in Serum or Plasma 4.3 G/DL 3.9 - 5.0 [facility] Globulin [Mass/volume] in Serum by calculation 3.4 GM/DL 2.4 - 3.2 H [facility] A/G RATIO 1.3 0.8 - 2.0 [facility] Calcium [Mass/volume] in Serum or Plasma 9.3 MG/DL 8.4 - 10.2 [facility] Bilirubin.total [Mass/volume] in Serum or Plasma <0.7 MG/DL 0.2 - 1.3 [facility] Alkaline phosphatase [Enzymatic activity/volume] in Serum or Plasma 107 U/L 38 - 126 [facility] Aspartate aminotransferase [Enzymatic activity/volume] in Serum or Plasma 23 U/L 5 - 40 [facility] Alanine aminotransferase [Enzymatic activity/volume] in Seru m or Plasma 20 U/L 7 - 56 [facility] Anion gap 3 in Serum or Plasma 7.0 mmol/L 8.0 - 16.0 L [facility] AGE 20 yrs [facility] NON-AA GFR >60 mL/min [facility] ital AFR AMER GFR >60 mL/min [facility] Male GFR In [...] >32 mL/min Normal ID Date Data Source [id number] 06/16/2020 11:09:00 PM EST [facility] Name Value Range Interpretation Code Description Data Shira rce(s) Supporting Document(s) Lactate [Moles/volume] in Serum or Plasma 1.3 MMOL/L 0.2 - 2.2 [facility] ID Date Data Source [id number] 06/16/2020 11:08:00 PM EST [facility] Name Value Range Interpretation Code Description Data Shira rce(s) Supporting Document(s) URINALYSIS [facility] UR[facility] COL[facility] yellow NORMAL: Yellow [facility] CLARITY cloudy NORMAL: Clear [facility] Specific gravity of Urine by Test strip 1.025 1.001 - 1.030 [facility] pH 6 5 - 9 [facility] [Mass/volume] in Urine by Test strip NORM NORMAL: Negat [facility] Bilirubin.total [Presence] in Urine by Test strip NEG NORMAL: Negative [facility] Ketones [Presence] in Urine by Test strip NEG NORMAL: Negative [facility] Protein [Mass/volume] in Urine by Test strip 30 NORMAL: Negat [facility] Nitrite [Presence] in Urine by Test strip NEG NORMAL: Negative [facility] BLOOD 250 NORMAL: Negative [facility] Leukocyte esterase [Presence] in Urine by Test strip 25 MAURIZIO L: Negative [facility] Urobilinogen [Mass/volume] in Urine by Test strip 1 less rocky n 1.0 mg/dL [facility] MICROSCOPIC See Below [facility] ital WBC 3 - 5 NORMAL: NONE SEEN [facility] Erythrocytes [#/volume] in Urine by Test strip 5 - 7 NORMAL: NON E SEEN A [facility] EPITHELIAL MANY NORMAL: NONE SEEN A [facility] Bacteria [Presence] in Urine sediment by Light microscopy 2+ MOD NORMAL: NONE SEEN A [facility] Mucus [Presence] in Urine sediment by Light microscopy 1+ NOR MAL: NONE SEEN [facility] Crystals [type] in Urine sediment by Light microscopy See Below [facility] CALCIUM OX Trace NORMAL: NONE SEEN [facility] ID Date Data Source [id number] 06/16/2020 11:04:00 PM EST [facility] Name Value Range Interpretation Code Description Data Shira rce(s) Supporting Document(s) CBC W/AUTOMATED DIFF [facility] COMPLETE BLOOD COUNT Leukocytes [#/volume] in Blood by Automated count 12.2 10^3/uL 4.2 - 11.0 H [facility] Erythrocytes [#/volume] in Blood by Automated count 4.63 10^6/uL 4. 20 - 5.40 [facility] Hemoglobin [Mass/volume] in Blood 13.9 g/dL 12.0 - 16.0 [facility] Hematocrit [Volume Fraction] of Blood by Automated count 41.0 % 3 7.0 - 47.0 [facility] Erythrocyte mean corpuscular volume [Entitic volume] by Auto mated count 88.6 fL 81.0 - 101 [facility] Erythrocyte mean corpuscular hemoglobin [Entitic mass] by Automated count 30.0 pg 27.0 - 34.0 [facility] Erythrocyte mean corpuscular hemoglobin concentration [Mass/volume] by Automated count 33.9 g/dL 31.0 - 36.0 [facility] Erythrocyte distribution width [Ratio] by Automated count 11.5 % 11.5 - 14.5 [facility] Platelets [#/volume] in Blood by Automated count 349 10^3/uL 150 - 45 0 [facility] Platelet mean volume [Entitic volume] in Blood by Automated count 8.4 fL 7.4 - 10.4 [facility] Neutrophils/100 leukocytes in Blood by Automated count 67.8 % 37. 0 - 80.0 [facility] Lymphocytes/100 leukocytes in Blood by Manual count 24.5 % 25.0 - 40.0 L [facility] Monocytes/100 leukocytes in Blood by Automated count 6.4 % 3.0 - 8.0 [facility] Eosinophils/100 leukocytes in Blood by Automated count 0.6 % 0.0 - 7.0 [facility] Basophils/100 leukocytes in Blood by Automated count 0.2 % 0.0 - 2.5 [facility] %IG 0.5 % 0.0 - 0.0 [facility] %NRBC 0.0 % 0.0 - 0.0 [facility] al Neutrophils [#/volume] in Blood by Automated count 8.27 10^3/uL 2.00 - 6.90 H [facility] Lymphocytes [#/volume] in Blood by Automated count 2.98 10^3/uL 0.60 - 3.40 [facility] Monocytes [#/volume] in Blood by Automated count 0.78 10^3/uL 0.00 - 0.90 [facility] Eosinophils [#/volume] in Blood by Automated count 0.07 10^3/uL 0.00 - 0.70 [facility] Basophils [#/volume] in Blood by Automated count 0.02 10^3/uL 0.00 - 0.20 [facility] #IG 0.06 10^3/uL 0.00 - 0.10 [facility] ospital #NRBC 0.00 10^3/uL 0.00 - 0.00 [facility] ospital MANUAL DIFF NOT INDICATED [facility] RBC MORPH NOT INDICATED [facility] spital ID Date Data Source [id number] 05/19/2020 11:06:00 AM EDT [facility] [address] [place] [address] PHONE: [phone] FAX: [phone] Name .................. : JUANITO NOVAK Bairon Acct Number.................. : [id number] ROOM. ................. : TR-06 Number ................... : [id number] Stay type ............. : E/R Discharge Date......... ... : 05/16/20 Admit Date ......... : 05/16/20 Admit Phys .................... : RAMIN ANTHONY Date of ....... : 2000 Family Phys ................... : UNKNOWN CO Phone .................. : [phone] Age ................................ : 20 Film# .................. .:[id number] Sex ................................. : F Unsigned transcriptions are preliminary reports and do not represent a medical or legal document CT ABD & PELV W/[place] ORAL W/[place] [id number] COMPLETE:05/16/20 11:31 LANA 23110 Reason(s): Abdominal Pain CT SCAN OF THE [...] By Rahat Obando MD , 05/19/20 11:06, KGG Transcribe Initials: BENJAMIN , Transcribe Date: 05/16/20 12:18, Dictation Date: Page 1 of [address] [place] [address] PHONE: [phone] FAX: [phone] Name .................. : JUANITO Waddell Acct Number.................. : [id number] ROOM. ................. : -06 MR Number ................... : [id number] Stay type ............. : E/R Discharge Date......... ... : 05/16/20 Admit Date ......... : 05/16/20 Admit Phys .................... : RAMIN ANTHONY Date of ....... : 2000 Family Phys ................... : UNKNOWN CO Phone .................. : [phone] Age ....................... ......... : 20 Film# .................. .:[id number] Sex ................................. : F Unsigned transcriptions are preliminary reports and do not represent a medical or legal document CT ABD & PELV W/[place] ORAL W/[place] [id number] COMPLETE:05/16/20 11:31 LANA [address] Reason(s): Abdominal Pain Copy for: EMERGENCY DEPT via modem Copy for: 710 MED REC DISCHARGED Page 2 of 2 Name Value Range Interpretation Code Description Data Shira rce(s) Supporting Document(s) ID Date Data Source [id number] 05/16/2020 09:17:00 AM EDT [facility] 1 OrderSheet [facility] Department [address] [place] [address] Phone #: ext- [phone] 05/16/2020 09:09 Patient: SCARLET SOLOMON Sex: F [...] 05/16/2020 09:39 Jenelle Eddy W/O IV Samir Faustin R.N.Contrast Physician;(Oxygen?(No))(IV?(Yes)) NOTES: R flank pain Reason for Study: Abdominal Pain 2 OrderSheet [facility] [address] [place] [address] Phone #: ext- [phone] 05/16/2020 09:09 Patient: SCARLET SOLOMON Sex: F : 2000 Age: 20yMEDICATION/IV/DRIP/FLUID ORDERSOrder Description Priority Entered Acknowledged InitialedIV NS : Bolus 1000 09:39 05/16/2020 09:55 Karma EddymL, then 125 mL/hr Samir Faustin R.NElder(can be titrated per Physician;additionalphysicianinstruction)Zofran 4 mg IVP X 1 09:40 05/16/2020 09:55 Narda Eddyose: 4 mg (NOW Samir Faustin R.N.x1) Physician;Protonix IVPB 40 09:40 05/16/2020 09:56 Karma Eddymg with Dextrose Samir Faustin R.NElder100 ml spike bag Physician;(D5W)GENERAL ORDERSOrder Description Priority Entered Acknowledged InitialedSaline Lock 09:39 05/16/2020 09:39 Karma Eddy R.N. Physician;Pulse oximeter 09:39 05/16/2020 09:39 Karma Eddy(Spot Check) Samir Faustin R.N. Physician;[Electronically signed by Alfredo Enciso R.N. (11:45 05/16/2020)][Electronically signed by Samir Faustin Physician (07:42 05/18/2020)][Electronically locked by Alfredo Enciso R.N. (11:45 05/16/2020)] Name Value Range Interpretation Code Description Data Shira rce(s) Supporting Document(s) ID Date Data Source [id number] 05/16/2020 09:17:00 AM EDT [facility] 1 Medication Reconciliation Report [facility] [address] [place] [address] Phone #: ext- [phone] 05/16/2020 09:09 Patient: [...] / diarrhea. Dispense 14 tablet. Refills:0. Substitution permitted.[facility] [address] ; [place] [address]. .ibuprofen 800 mg tablet Take 1 tablet every eight hours as needed for 10 days -- for pain / fever.Dispense 30 tablet. Refills: 0. Substitution permitted.[facility] [address] ; [place] [address]. .Pyridium 200 mg tablet Take 1 tablet every eight hours for 2 days -- for cystitis / bladder spasm.Dispense 6 tablet. Refills: 0. Substitution permitted.[facility] [address] ; [place] [address]. . -- Samir Faustin, Physician 2 Medication Reconciliation Report [facility] [address] [place] [address] Phone #: ext- [phone] 05/16/2020 09:09 Patient: SCARLET SOLOMON Sex: F : 2000 Age: 20y Name Value Range Interpretation Code Description Data Shira rce(s) Supporting Document(s) ID Date Data Source [id number] 05/16/2020 09:17:00 AM EDT [facility] 1 Medication Administration Record [facility] [address] [place] [address] Phone #: ext- [phone] 05/16/2020 09:09 Patient: SCARLET SOLOMON Sex: F : 2000 Age: 20yWeight: 81.6 kgHeight/Length: 66 inBMI: 29ALLERGIES: None Date/Time Medication Administered Medication OrderedStart IV NS IV NS : Bolus 1000 mL, then 76387:55 05/16/2020 Dose: IV Fluids mL/hr (can be titrated Karma Perez RElderNElder Bolus: 1000 mL over 1 hour(s) additional [...] rce(s) Supporting Document(s) ID Date Data Source [id number] 05/16/2020 09:17:00 AM EDT [facility] 1 General Instructions [facility] [address] [place] [address] Phone #: ext- [phone] 05/16/2020 09:09 Patient: [...] / diarrhea. Dispense 14 tablet. Refills:0. Substitution permitted.Pharmacy - [facility] [address] ; [place] [address]. .ibuprofen 800 mg tablet Take 1 tablet every eight hours as needed for 10 days -- for pain / fever.Dispense 30 tablet. Refills: 0. Substitution permitted.[facility] [address] ; [place] [address]. .Pyridium 200 mg tablet Take 1 tablet every eight hours for 2 days -- for cystitis / bladder spasm.Dispense 6 tablet. Refills: 0. Substitution permitted.Pharmacy - [facility] [address] ; [place] [address]. FaxNumber: .Understanding of the discharge instructions verbalized by patient.Follow-up with: [facility], , , [address] [place] [address], , [place], [address] Follow up Tuesday if not better. Call for an appointment. Reason for referral: evaluation, treatment andUTI / Mesenteric Adenitis / Diarrhea. 2 General Instructions [facility] [address] [place] [address] Phone #: ext- [phone] 05/16/2020 09:09 Patient: SCARLET SOLOMON Sex: F [...] Drink plenty of fluids. 3 General Instructions [facility] [address] [place] [address] Phone #: ext- [phone] 05/16/2020 09:09 Patient: SCARLET SOLOMON Sex: F : 2000 Age: 20y Don't smoke or drink alcohol.Follow-up careFollow up with your healthcare provider, or as advised. It is often very hard to tell mesenteric adenitisapart from appendicitis. So close follow-up is needed.If X-rays were done, a radiologist will look at them. You will be told if there are changes.Call [phone] if any of these occur: Trouble breathing [...] Swelling in the abdomen 4 General Instructions [facility] [address] [place], [place] [address] Phone #: ext- [phone] 05/16/2020 09:09 Patient: SCARLET SOLOMON Sex: F : 2000 Age: 20y Bloody stools [id number] [employer]. [address] [place] [address]. All rights reserved. This information is not [...] worry (anxiety) Other illnesses 5 General Instructions [facility] [address] [place] [address] Phone #: ext- [phone] 05/16/2020 09:09 Patient: [...] for heart disease or after a stroke) Zarb-pbt-pxgjkrs medicines for diarrhea, nausea, and vomiting are generally OK unless you have bleeding, fever, or severe abdominal pain.General care If symptoms are severe, rest at home for the next 24 hours, or until you are feeling better. Washing your hands with soap and water, or using alcohol-based hand chief of safety and protection is the best way to stop the [...] called oral rehydration solutions 6 General Instructions [facility] [address] [place] [address] Phone #: ext- [phone] 05/16/2020 09:09 Patient: [...] after. Wash your hands or use alcohol-based chief of safety and protection after using cutting boards, countertops, and 7 General Instructions [facility] [address] [place] [address] Phone #: ext- [phone] 05/16/2020 09:09 Patient: SCARLET SOLOMON Sex: F : 2000 Age: 20y knives that have been in contact with raw food. Dry your hands with a single use towel. Keep uncooked meats away from cooked and dmkbd-wz-xby foods.Follow-up careFollow up with your healthcare provider, [...] more than 24 hours 8 General Instructions [facility] [address] [place] [address] Phone #: rxl- [phone] 05/16/2020 09:09 -- Patient: SCARLET SOLOMON Sex: F : 2000 Age: 20y Diarrhea that lasts more than 24 hours Fever of 100.4F (38.0C) or higher, or as directed by your healthcare provider Yellowish color to your skin or the whites of your eyes Signs of dehydration, such as dry mouth, little urine (less than every 6 hours), or very dark urine 8432-1259 [employer]. [address] [place] [address], [place] [address]. All rights reserved. This information is not [...] ofcystitis is an infection. 9 General Instructions [facility] [address] [place] [address] Phone #: ext- [phone] 05/16/2020 09:09 Patient: [...] catheter inserted Older age 10 General Instructions [facility] [address] [place] [address] Phone #: ext- [phone] 05/16/2020 09:09 Patient: [...] your symptoms are gone. 11 General Instructions [facility] [address] [place] [address] Phone #: ext- [phone] 05/16/2020 09:09 Patient: [...] if the results will affect your treatment.Call [phone] if any of the following occur: Trouble [...] swelling in the outer vaginal area (labia) 5300-9578 [employer]. [address] [place] [address], [place] [address]. All rights reserved. This information is not intended as asubstitute for professional medical care. Always follow your healthcare professional's instructions. 12 General Instructions [facility] [address] [place] [address] Phone #: ext- [phone] 05/16/2020 09:09 Patient: [...] and may increase bleeding. 13 General Instructions [facility] [address] [place] [address] Phone #: ext- [phone] 05/16/2020 09:09 Patient: [...] the nose or gums or easy bruising 6517-4413 [employer] [address] [place] [address]. All rights reserved. This information is not [...] to 6 hours if: 14 General Instructions [facility] [address] [place] [address] Phone #: ext- [phone] 05/16/2020 09:09 Patient: SCARLET SOLOMON Sex: Bairon : 2000 Age: 20y You feel very [...] Headache or stiff neck 15 General Instructions [facility] [address] [place] [address] Phone #: ext- [phone] 05/16/2020 09:09 Patient: [...] place where infectious diseases arecommon. 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 16 General Instructions [facility] [address] [place] [address] Phone #: ext- [phone] 05/16/2020 09:09 Patient: SCARLET SOLOMON Sex: F : 2000 Age: 20y [id number] [employer] [address] [place] [address]. All rights reserved. This information is not intended as asubstitute for professional medical care. Always follow your healthcare professional's instructions. You have been given the following additional information: Adenitis, Mesenteric Vomiting and Diarrhea, Nonspecific (Adult) Bladder Infection, Female (Adult) Hematuria Fever Control (Adult) Do not work today, tomorrow.(Electronically signed by Samir Faustin, Physician 05/18/2020 07:42) Name Value Range Interpretation Code Description Data Shira rce(s) Supporting Document(s) ID Date Data Source [id number] 05/16/2020 09:17:00 AM EDT [facility] 1 Clinical Report - Nurses [facility] [address] [place] [address] Phone #: ext- [phone] 05/16/2020 09:09 Patient: [...] had nausea, vomiting and diarrhea. 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 Sepsis Screen negative. No suspected or confirmed signs ofinfection present. --09:21 05/16/20 Karma Eddy R.N.09:12 05/16/20. BP: 130/69. MAP: 89. HR: 75. RR: 18. O2 saturation: 99%. Temp: 97.8 F (oral). Painlevel now: 12/22. --09:21 05/16/20 Karma Eddy R.N.Weight: 81.6 kg stated. Height/Length: 66 inches Per Patient. BMI: 29. --09:11 05/16/20 Karma Eddy R.N.MedicationsZoloft Oral. --09:14 05/16/20 Karma Eddy R.N.AllergiesNone. --09:14 05/16/20 Karma Eddy R.N.PROBLEMS:Depression. --09:14 05/16/20 Karma Eddy R.N.ADDITIONAL SURGERIES:Gallbladder Surgery. --09:14 05/16/20 Karma Eddy R.N.HistoryPAST MEDICAL HX: Immunizations: up-to-date. [...] of CRE. 2 Clinical Report - Nurses [facility] [address] [place] [address] Phone #: ext- [phone] 05/16/2020 09:09 Patient: SCARLET SOLOMON Sex: F : 2000 Age: 20y SELF [...] assessment completed. No skin integrity risk identified. --:05/16/20 Karma Eddy R.N. Interventions Identification band on [...] normal limits.SKIN: Skin is warm and dry. --09:05/16/20 Karma Eddy R.N.NURSING PROGRESS NOTESReassurance given. Two [...] no pain, 3 Clinical Report - Nurses [facility] [address] [place] [address] Phone #: ext- [phone] 05/16/2020 09:09 Patient: [...] ( stool sample sent). --09:58 05/16/20 Karma Eddy R.N. Patient transported to [place] by wheelchair with tech. --10:14 05/16/20 Karma Eddy R.N. Care transferred and report given (Alfredo). --10:14 05/16/20 Karma Eddy R.N. Patient transported to [place] by wheelchair with tech. --10:15 05/16/20 Alfredo [...] learning barriers present. Written instructions provided in Bermudian. The patient was discharged by the physician. She was discharged home. She left ambulatory and via private ve hicle. Patient driving. --11:44 05/16/20 Alfredo Enciso R.N. 11:43 05/16/20. BP: 148/92. MAP: 110. HR: 66. RR: 18. O2 saturation: 98%. Temp: 99.2 F. Pain level 4 Clinical Report - Nurses [facility] [address] [place] [address] Phone #: ext- [phone] 05/16/2020 09:09 Patient: SCARLET SOLOMON Sex: F : 2000 Age: 20y now: 09/24. --11:44 05/16/20 Alfredo Enciso R.N.Locked/Released at 05/16/2020 11:45 by Alfredo Enciso R.N. Name Value Range Interpretation Code Description Data Shira rce(s) Supporting Document(s) ID Date Data Source [id number] 05/16/2020 09:17:00 AM EDT [facility] 1 Clinical Report - Physicians/Mid Levels [facility] [address] [place] [address] Phone #: ext- [phone] 05/16/2020 09:09 Patient: [...] facility in a clinic. ( Seen at [facility] 2 days ago).REVIEW OF SYSTEMSNo fever, muscle [...] allergies. 2 Clinical Report - Physicians/Mid Levels [facility] [address] [place] [address] Phone #: ext- [phone] 05/16/2020 09:09 Patient: SCARLET SOLOMON Sex: F : 2000 Age: 20yPHYSICAL EXAMVital Signs: 05/16/2020 09:12 BP: 130/69. MAP: 89. HR: 75. RR: 18. O2 saturation: 99%. Temp: 97.8 F.Pain level now: 510. Have been reviewed and appear to be [...] ABD //T// PELV W/O ORAL W/O IV [address] [place] [address] PHONE: [phone] FAX: [phone] Name .................. : JUANITO Waddell Acct Number.................. : [id number] ROOM. ................. : TR-06 MR Number ................... : [id number] Stay type ............. : E/R Discharge Date......... ... : 05/16/20 Admit Date ......... : 05/16/20 Admit Phys .................... : RAMIN ANTHONY Date of ....... : 2000 Family Phys ................... : UNKNOWN CO Phone .................. : [phone] Age ................................ : 20 Film# .................. .:[id number] Sex ................................. : F Unsigned transcriptions are preliminary reports and do not represent a medical or legal document CT ABD Reason(s): Abdominal Pain CT SCAN OF THE ABDOMEN AND PELVIS WITHOUT CONTRAST: 3 Clinical Report - Physicians/Mid Levels [facility] [address] [place] [address] Phone #: ext- [phone] 05/16/2020 09:09 Patient: [...] 12:18, Dictation Date: Page 1 of 2 [facility] [address] [place] [address] PHONE: [phone] FAX: [phone] Name .................. : JUANITO Waddell Acct Number.................. : [id number] ROOM. ................. : TR-06 MR Number ................... : [id number] Stay type ............. : E/R Discharge Date......... ... : 05/16/20 Admit Date ......... : 05/16/20 Admit Phys .................... : VENERUS BR Date of ....... : 2000 Family Phys ................... : UNKNOWN CO Phone .................. : [phone] Age ................................ : 20 Film# .................. .:[id number] Sex ................................. : F Unsigned transcriptions are preliminary reports and do not represent a medical or legal document CT ABD Reason(s): Abdominal Pain <<REPDIST>> Page 2 of 2Urinalysis: (STELLA: 05/16/2020 09:50) ( MsgRcvd 05/16/2020 10:42) Final results Test Result Flag Units (Reference) 4 Clinical Report - Physicians/Mid Levels [facility] [address] [place] [address] Phone #: ext- [phone] 05/16/2020 09:09 Patient: [...] PANEL 5 Clinical Report - Physicians/Mid Levels [facility] [address] [place] [address] Phone #: ext- [phone] 05/16/2020 09:09 Patient: [...] Male GFR Interprentation 20-49 yrs >60 mL/min Rsqyap50-35 yrs >56 mL/min Normal 60-69 yrs >49 mL/min Normal 70-79yrs>42 mL/min Normal 80 and above >35 mL/min Normal Female GFRInterpretation 20-39 yrs >60 mL/min Normal 40-49 yrs >58 mL/minNormal 50-59 yrs >51 mL/min Normal 60-69 yrs >45 mL/min Vsalgz97-93 yrs >39 mL/min Normal 80 and above [...] NEGATIVE (NORMAL: NEGAT { KIT LOT # [id number] ){ KIT EXP DATE05.20.21 ){ PROCEDURAL CONTROL VALID)GI 4 Panel: (STELLA: 05/16/2020 09:50) ( MsgRcvd 05/17/2020 11:28) Final results Test Result Flag Units (Reference) GI PANEL _GASTROINTESTINAL PANEL_ TEST PERFORMED AT [address] [id number] CLIA# [id number] SEE SCANNED REPORT.Note - Tests: (CT abdomen / pelvis - mesenteric adenitis. No ureteral stones.). 6 Clinical Report - Physicians/Mid Levels [facility] [address] [place] [address] Phone #: ext- [phone] 05/16/2020 09:09 Patient: [...] Dispense 14 tablet. Refills: 0. Substitution permitted. [facility] [address] ; [place] [address]. . ibuprofen 800 mg tablet Take 1 tablet every eight hours as needed for 10 days -- for pain / fever. Dispense 30 tablet. Refills: 0. Substitution permitted. [facility] [address] ; [place] [address]. . 7 Clinical Report - Physicians/Mid Levels [facility] [address] [place] [address] Phone #: ext- [phone] 05/16/2020 09:09 Patient: SCARLET SOLOMON Sex: F : 2000 Age: 20y Pyridium 200 mg tablet Take 1 tablet every eight hours for 2 days -- for cystitis / bladder spasm. Dispense 6 tablet. Refills: 0. Substitution permitted. [facility] [address] ; [place] [address]. . Understanding of the discharge instructions verbalized by patient. Follow-up with: [facility], , , [address] [place] [address], , [place], [address] Follow up Tuesday if not better. Call for an appointment. Reason for referral: evaluation, treatment and UTI / Mesenteric Adenitis / Diarrhea.(Electronically signed by Samir Faustin, Physician 05/18/2020 07:42) Name Value Range Interpretation Code Description Data Shira rce(s) Supporting Document(s) ID Date Data Source [id number] 05/16/2020 08:58:00 PM EDT [facility] FilmArray Gastrointestinal panel is a qu [...] OTHER EXPERTS. (E.G. GUIDELINES/POLICYSTATEMENTS PUBLISHED BY THE [employer] THE SOCIETY FOR HEALTHCARE EPIDEMIOLOGY OF [place] ANDTHE INFECTIOUS DISEASE SOCIETY OF [place]).No Organisms Detected Name Value Range Interpretation Code Description Data Shira rce(s) Supporting Document(s) ID Date Data Source [id number] 05/17/2020 11:28:00 AM EDT [facility] Name Value Range Interpretation Code Description Data Shira rce(s) Supporting Document(s) GI PANEL [facility] _GASTROINTESTINAL PANEL_ [place] [address] CLIA# [id number] SEE SCANNED REPORT ID Date Data Source [id number] 05/16/2020 10:41:00 AM EDT [facility] Name Value Range Interpretation Code Description Data Shira rce(s) Supporting Document(s) URINALYSIS [facility] yellow NORMAL: Yellow [facility] CLARITY hazy NORMAL: Clear [facility] Specific gravity of Urine by Test strip 1.020 1.001 - 1.030 [facility] pH 5 5 - 9 [facility] Glucose [Mass/volume] in Urine by Test strip NORM NORMAL: Negat [facility] Bilirubin.total [Presence] in Urine by Test strip NEG NORMAL: Negative [facility] Ketones [Presence] in Urine by Test strip NEG NORMAL: Negative [facility] Protein [Mass/volume] in Urine by Test strip 30 NORMAL: Negat [facility] Nitrite [Presence] in Urine by Test strip NEG NORMAL: Negative [facility] BLOOD 250 NORMAL: Negative [facility] Leukocyte esterase [Presence] in Urine by Test strip 25 MAURIZIO L: Negative [facility] Urobilinogen [Mass/volume] in Urine by Test strip NOR less rocky n 1.0 mg/dL [facility] MICROSCOPIC See Below [facility] WBC 3 - 5 NORMAL: NONE SEEN [facility] Erythrocytes [#/volume] in Urine by Test strip TNTC NORMAL: NON E SEEN A [facility] EPITHELIAL MODERATE NORMAL: NONE SEEN A [facility] Bacteria [Presence] in Urine sediment by Light microscopy 1+ SMALL NORMAL: NONE SEEN [facility] Mucus [Presence] in Urine sediment by Light microscopy 1+ NOR MAL: NONE SEEN [facility] ID Date Data Source [id number] 05/16/2020 10:24:00 AM EDT [facility] Name Value Range Interpretation Code Description Data Shira rce(s) Supporting Document(s) COMPREHENSIVE METABOLIC PANEL [facility] COMPREHENSIVE METABOLIC PANEL Sodium [Moles/volume] in Serum or Plasma 137 mEq/L 134 - 153 [facility] Potassium [Moles/volume] in Serum or Plasma 5.0 mEq/L 3.6 - 5.0 [facility] Chloride [Moles/volume] in Serum or Plasma 101 mEq/L 98 - 107 [facility] Carbon dioxide, total [Moles/volume] in Serum or Plasma 26 MEQ/L 22 - 30 [facility] Glucose [Mass/volume] in Serum or Plasma 114 MG/DL 65 - 110 H [facility] BUN 11 MG/DL 7 - 21 [facility] Creatinine [Mass/volume] in Serum or Plasma 0.5 MG/DL 0.7 - 1.5 L [facility] BUN/CREAT 22 8 - 27 [facility] Protein [Mass/volume] in Serum or Plasma 7.4 G/DL 6.3 - 8.2 [facility] Albumin [Mass/volume] in Serum or Plasma 4.3 G/DL 3.9 - 5.0 [facility] Globulin [Mass/volume] in Serum by calculation 3.1 GM/DL 2.4 - 3.2 [facility] A/G RATIO 1.4 0.8 - 2.0 [facility] Calcium [Mass/volume] in Serum or Plasma 9.4 MG/DL 8.4 - 10.2 [facility] Bilirubin.total [Mass/volume] in Serum or Plasma 0.7 MG/DL 0.2 - 1.3 [facility] Alkaline phosphatase [Enzymatic activity/volume] in Serum or Plasma 98 U/L 38 - 126 [facility] Aspartate aminotransferase [Enzymatic activity/volume] in Serum or Plasma <39 U/L 5 - 40 [facility] Alanine aminotransferase [Enzymatic activity/volume] in Seru m or Plasma <15 U/L 7 - 56 [facility] Anion gap 3 in Serum or Plasma 10.0 mmol/L 8.0 - 16.0 [facility] AGE 20 yrs [facility] NON-AA GFR >60 mL/min [facility] AFR AMER GFR >60 mL/min [facility] Male GFR In [...] >32 mL/min Normal ID Date Data Source [id number] 05/16/2020 10:12:00 AM EDT [facility] Name Value Range Interpretation Code Description Data Shira rce(s) Supporting Document(s) Lipase [Enzymatic activity/volume] in Serum or Plasma 20 U/L 13 - 60 [facility] ID Date Data Source [id number] 05/16/2020 10:04:00 AM T [facility] Name Value Range Interpretation Code Description Data Shira rce(s) Supporting Document(s) HCG SERUM QUAL NEGATIVE NORMAL: NEGATIVE [facility] HCG SERUM QL REENTER NEGATIVE NORMAL: NEGATIVE [facility] { KIT LOT # [id number] ){ KIT EXP DATE 05.20.21 ){ PROCEDURAL CONTROL VALID ) ID Date Data Source [id number] 05/16/2020 10:00:00 AM T [facility] Name Value Range Interpretation Code Description Data Shira rce(s) Supporting Document(s) CBC W/AUTOMATED DIFF [facility] COMPLETE BLOOD COUNT Leukocytes [#/volume] in Blood by Automated count 8.8 10^3/uL 4.2 - 1 1.0 [facility] Erythrocytes [#/volume] in Blood by Automated count 4.66 10^6/uL 4. 20 - 5.40 [facility] Hemoglobin [Mass/volume] in Blood 14.0 g/dL 12.0 - 16.0 [facility] Hematocrit [Volume Fraction] of Blood by Automated count 41.1 % 3 7.0 - 47.0 [facility] Erythrocyte mean corpuscular volume [Entitic volume] by Auto mated count 88.2 fL 81.0 - 101 [facility] Erythrocyte mean corpuscular hemoglobin [Entitic mass] by Automated count 30.0 pg 27.0 - 34.0 [facility] Erythrocyte mean corpuscular hemoglobin concentration [Mass/volume] by Automated count 34.1 g/dL 31.0 - 36.0 [facility] Erythrocyte distribution width [Ratio] by Automated count 11.6 % 11.5 - 14.5 [facility] Platelets [#/volume] in Blood by Automated count 337 10^3/uL 150 - 45 0 [facility] Platelet mean volume [Entitic volume] in Blood by Automated count 8.6 fL 7.4 - 10.4 [facility] Neutrophils/100 leukocytes in Blood by Automated count 69.0 % 37. 0 - 80.0 [facility] Lymphocytes/100 leukocytes in Blood by Manual count 22.3 % 25.0 - 40.0 L [facility] Monocytes/100 leukocytes in Blood by Automated count 6.6 % 3.0 - 8.0 [facility] Eosinophils/100 leukocytes in Blood by Automated count 1.5 % 0.0 - 7.0 [facility] Basophils/100 leukocytes in Blood by Automated count 0.3 % 0.0 - 2.5 [facility] %IG 0.3 % 0.0 - 0.[address] [facility] al %NRBC 0.0 % 0.0 - 0.0 [facility] al Neutrophils [#/volume] in Blood by Automated count 6.09 10^3/uL 2.00 - 6.90 [facility] Lymphocytes [#/volume] in Blood by Automated count 1.97 10^3/uL 0.60 - 3.40 [facility] Monocytes [#/volume] in Blood by Automated count 0.58 10^3/uL 0.00 - 0.90 [facility] Eosinophils [#/volume] in Blood by Automated count 0.13 10^3/uL 0.00 - 0.70 [facility] Basophils [#/volume] in Blood by Automated count 0.03 10^3/uL 0.00 - 0.20 [facility] #IG 0.03 10^3/uL 0.00 - 0.10 [facility] #NRBC 0.00 10^3/uL 0.00 - 0.00 [facility] MANUAL DIFF NOT INDICATED [facility] RBC MORPH NOT INDICATED [facility] ID Date Data Source [id number] 05/16/2020 09:52:00 AM EDT [facility] Name Value Range Interpretation Code Description Data Shira rce(s) Supporting Document(s) Lactate [Moles/volume] in Serum or Plasma 1.9 MMOL/L 0.2 - 2.2 [facility] ID Date Data Source [id number] 03/03/2020 03:01:00 PM EDT [facility] [address] [place] [address] PHONE: [phone] FAX: [phone] Name .................. : JUANITO Waddell Acct Number.................. : [id number] ROOM. ................. : [facility] Number ................... : [id number] Stay type ............. : E/R Discharge Date......... ... : Admit Date ......... : 02/29/20 Admit Phys .................... : RAMIN ANTHONY Date of ....... : 2000 Family Phys ................... : UNKNOWN CO Phone .................. : [phone] Age ................................ : 20 Film# .................. .:[id number] Sex ................................. : F Unsigned transcriptions are preliminary reports and do not represent a medical or legal document ABDOMEN 1 VIEW [id number] COMPLETE:02/29/20 21:40 [id number] Reason(s): Flank Pain Right ABDOMEN: SINGLE VIEW HISTORY: Right flank pain. COMPARISON: CT study from 02/10/20. FINDINGS: Radiographically, no urolithiasis is evident. Cholecystectomy clips are present. Nonobstructive bowel gas pattern. No organomegaly. Clear lung bases. No osseous abnormality. IMPRESSION: Normal examination. No urolithiasis. Electronically Reviewed and Signed By Stephen Hylton MD , 03/03/20 15:01, APM Transcribe Initials: DZ , Transcribe Date: 02/29/20 23:21, Dictation Date: Copy for: ZOLTAN DINH via fax Copy for: EMERGENCY DEPT via modem Copy for: 710 MED REC DISCHARGED Page 1 of 1 Name Value Range Interpretation Code Description Data Shira rce(s) Supporting Document(s) ID Date Data Source [id number] 03/03/2020 03:01:00 PM EDT [facility] [address] [place] [address] PHONE: [phone] FAX: [phone] Name .................. : JUANITO Waddell Acct Number.................. : [id number] ROOM. ................. : TR-03 MR Number ................... : [id number] Stay type ............. : E/R Discharge Date......... ... : Admit Date ......... : 02/29/20 Admit Phys .................... : VENERUS BR Date of ....... : 2000 Family Phys ................... : UNKNOWN CO Phone .................. : [phone] Age ................................ : 20 Film# .................. .:[id number] Sex ................................. : F Unsigned transcriptions are preliminary reports and do not represent a medical or legal document CT HEAD W/O CONTRAST [id number] COMPLETE:02/29/20 21:40 [id number] Reason(s): Head Pain CT OF THE HEAD [...] MD , 03/03/20 15:01, APM Transcribe Initials: DZ , Transcribe Date: 02/29/20 23:19, Dictation Date: Copy for: ZOLTAN DINH via fax Copy for: EMERGENCY DEPT via mo dem Copy for: 710 MED REC DISCHARGED Page 1 of 1 Name Value Range Interpretation Code Description Data Shria rce(s) Supporting Document(s) ID Date Data Source [id number] 02/29/2020 09:35:00 PM EDT [facility] 1 OrderSheet [facility] Department [address] [place] [address] Phone #: ext- [phone] 02/29/2020 21:28 Patient: SCARLET SOLOMON Sex: F [...] Cont STAT 21:40 02/29/2020 21:41 Zaire,(Oxygen?(No)) Jesse Robles R.N. PA; Reason for Study: Head PainMEDICATION/IV/DRIP/FLUID ORDERSOrder Description Priority Entered Acknowledged InitialedNS IV : Bolus 1000 21:40 02/29/2020 22:03 Sorbero, 2 OrderSheet [facility] [address] [place] [address] Phone #: ext- [phone] 02/29/2020 21:28 Patient: SCARLET SOLOMON Sex: F : 2000 Age: 20ymL, then 125 mL/hr Jesse Robles R.N. PA;Benadryl IVP 25 mg 21:40 02/29/2020 22:04 Jesse Tai R.N. PA;Reglan IVPB 10 mg 21:40 02/29/2020 22:04 Zaire,with Dextrose Jesse Robles R.N.Intravenous 50 mL PA;(D5W)Toradol IVP 15 mg 21:40 02/29/2020 22:03 Jesse Tai R.N. PA;Zofran IVP 8 mg 21:40 02/29/2020 22:03 Jesse Tai R.N. PA;Rocephin 22:38 02/29/2020 Ack'd: 23:13 Marti 23:31 Marti Jay(1gm/50mL) IVPB Jesse Yu R.N.1000 mg with PA;Dextrose 50 mlspike bag (D5W)GENERAL ORDERSOrder Description Priority Entered Acknowledged InitialedNPO 21:40 02/29/2020 21:41 Jesse Tai R.N. PA;Saline Lock 21:40 02/29/2020 21:51 Jesse Tai R.N. PA;[Electronically signed by Jesse Wilcox (22:39 02/29/2020)][Electronically signed by Heath Yu RN (00:57 03/01/2020)][Electronically signed by Samir Faustin (01:55 03/01/2020)][Electronically locked by Heath Yu RN (00:57 03/01/2020)] Name Value Range Interpretation Code Description Data Shira rce(s) Supporting Document(s) ID Date Data Source [id number] 02/29/2020 09:35:00 PM EDT [facility] 1 Medication Reconciliation Report [facility] [address] [place] [address] Phone #: ext- [phone] 02/29/2020 21:28 Patient: [...] 30 tablet. Refills: 1. Substitution permitted.Pharmacy - [facility] [phone] ; [place] [address]. FaxNumber: [phone]. 2 Medication Reconciliation Report [facility] [address] [place] [address] Phone #: ext- [phone] 02/29/2020 21:28 Patient: SCARLET SOLOMON Sex: F : 2000 Age: 20yCipro 500 mg tablet Take 1 tablet twice a day for 7 days -- for UTI. Dispense 14 tablet. Refills: 0.Substitution permitted.Pharmacy - [facility] [phone] ; [place] [address]. . -- Samir Faustin, Physician Name Value Range Interpretation Code Description Data Shira rce(s) Supporting Document(s) ID Date Data Source [id number] 02/29/2020 09:35:00 PM EDT [facility] 1 Medication Administration Record [facility] [address] [place] [address] Phone #: ext- [phone] 02/29/2020 21:28 [id number] Sex[facility] F : 2000 Age: 20yWeight: 81.6 kgHeight/Length: 66 inBMI: 29ALLERGIES: No Known Drug Allergy Date/Time Medication Administered Medication OrderedStart NS [IV] NS IV : Bolus 1000 mL, then 15135:03 02/29/2020 Dose: IV Fluids mL/hrSTravis jones RElderNElder Rate: 1500 mL/hr over 40 minute(s)---- Dispensed: 1000 mL bagStop Site: #1 left AC00:38 03/01/2020StJeanna Rivas BENADRYL [IVP] (DIPHENHYDRAMINE Benadryl IVP 25 mg22:04 02/29/2020 HCL)Travis Tai R.NElder Dose: 25 mg IVP Site: #1 left ACStart REGLAN [IVPB] (METOCLOPRAMIDE Reglan IVPB 10 mg with Gggzfzui50:59 02/29/2020 HCL) Intravenous 50 mL (D5W)Travis Tai RElderNElder Dose: 10 mg IVPB---- Rate: 1000 mL/hr over 10 minute(s)Stop Dispensed: 50 mL bag22:11 02/29/2020 Site: #1 left Travis Yuan R.N.Given TORADOL [IVP] (KETOROLAC Toradol IVP 15 mg22:03 02/29/2020 TROMETHAMINE)Travis Tai R.NElder Dose: 15 mg IVP Site: #1 left ACGiven ZOFRAN [IVP] (ONDANSETRON HCL) Zofran IVP 8 mg22:03 02/29/2020 Dose: 8 mg IVPSTravis jones RElderNElder Site: #1 left ACStart ROCEPHIN (1GM/50ML) [IVPB] Rocephin (1gm/50mL) IVPB 909328:30 02/29/2020 (CEFTRIAXONE SODIUM) mg with Dextrose 50 ml spike bagMarti Yu R.N. Dose: 1 gm IVPB (D5W)---- Rate: 100 mL/hrStop Dispensed: 50 mL bag00:05 03/01/2020 Site: #1 left Cecilia Yu RN Name Value Range Interpretation Code Description Data Shira rce(s) Supporting Document(s) ID Date Data Source [id number] 02/29/2020 09:35:00 PM EDT [facility] 1 General Instructions [facility] [address] [place] [address] Phone #: ext- [phone] 02/29/2020 21:28 Patient: SCARLET SOLOMON Sex: F : 2000 Age: 20y(Electronically signed by EDIL [...] 30 tablet. Refills: 1. Substitution permitted.Pharmacy - [facility] [phone] ; [place] [address]. .Cipro 500 mg tablet Take 1 tablet twice a day for 7 days -- for UTI. Dispense 14 tablet. Refills: 0.Substitution permitted.[facility] [phone] ; [place] [address]. . 2 General Instructions [facility] [address] [place] [address] Phone #: ext- [phone] 02/29/2020 21:28 Patient: [...] of sleep or oversleeping. 3 General Instructions [facility] [address] [place] [address] Phone #: ext- [phone] 02/29/2020 21:28 Patient: [...] by your healthcare provider 4 General Instructions [facility] [address] [place] [address] Phone #: ext- [phone] 02/29/2020 21:28 Patient: SCARLET SOLOMON Sex: F : 2000 Age: 20y Stiff neck Extreme drowsiness, confusion, or fainting Dizziness or dizziness with spinning sensation (vertigo) Weakness in an arm or leg or one side of your face You have trouble talking or seeing [phone] [employer]. [address] [place] [address], [place] [address]. All rights reserved. This information is not [...] ofcystitis is an infection. 5 General Instructions [facility] [address] [place] [address] Phone #: ext- [phone] 02/29/2020 21:28 Patient: [...] catheter inserted Older age 6 General Instructions [facility] [address] [place] [address] Phone #: ext- [phone] 02/29/2020 21:28 Patient: [...] your symptoms are gone. 7 General Instructions [facility] [address] [place] [address] Phone #: ext- [phone] 02/29/2020 21:28 Patient: [...] if the results will affect your treatment.Call [phone] if any of the following occur: Trouble [...] swelling in the outer vaginal area (labia) [phone] [employer]. [address] [place] [address], [place] [address]. All rights reserved. This information is not intended as asubstitute for professional medical care. Always follow your healthcare professional's instructions. 8 General Instructions [facility] [address] [place] [address] Phone #: ext- [phone] 02/29/2020 21:28 Patient: SCARLET SOLOMON Sex: F : 2000 Age: 20yF ever Control (Adult)A [...] medicine during viral infection. 9 General Instructions [facility] [address] [place] [address] Phone #: ext- [phone] 02/29/2020 21:28 Patient: SCARLET SOLOMON MRN: [id number] Sex: F : 2000 Age: 20yFollow-up careFollow [...] breath Are unresponsiveImportant reminder 10 General Instructions [facility] [address] [place] [address] Phone #: ext- [phone] 02/29/2020 21:28 Patient: SCARLET SOLOMON Sex: F : 2000 Age: 20yCall your healthcare provider if you get a fever after visiting a place where infectious diseases arecommon. 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 [phone] [employer]. [address] [place] [address]. All rights reserved. This information is not intended as asubstitute for professional medical care. Always follow your healthcare professional's instructions. You have been given the following additional information: Headache, Unspecified Bladder Infection, Female (Adult) Fever Control (Adult) Do not work today, tomorrow.(Electronically signed by Samir Faustin, Physician 03/01/2020 01:55) Name Value Range Interpretation Code Description Data Shira rce(s) Supporting Document(s) ID Date Data Source [id number] 02/29/2020 09:35:00 PM EDT [facility] 1 Clinical Report - Nurses [facility] [address] [place] [address] Phone #: ext- [phone] 02/29/2020 21:28 Patient: SCARLET SOLOMON Sex: F : 2000 Age: 20yTRIAGEArrived by private vehicle. Historian: patient. Accompanied by family.Triage time: 21:29 02/29/2020. Acuity: LEVEL 3.Chief Complaint: HEADACHE, DIZZINESS, WEAKNESS, NAUSEA and VOMITING.Onset. (2 days ago). ( diarrhea). --21:34 02/29/20 Rashmi Hodges R.N.21:29 02/29/20. BP: 1 19/56. HR: 73. RR: 16. O2 saturation: 99%. Temp: 97.6 F. Pain level now 6/10.--21:34 02/29/20 Rashmi Hodges R.N.Weight: 81.6 kg. Height/Length: 66 inches. BMI: 29. --21:29 02/29/20 Rashmi Hodges R.N.MedicationsZoloft Oral. --21:32 02/29/20 Rashmi Hodges R.N. traZODone HCl Oral. --21:32 02/29/20 Rashmi Hodges R.N. Nexplanon Subcutaneous. --21:32 02/29/20 Rashmi Hodges R.N.AllergiesNo Known Drug Allergy. --21:32 02/29/20 Rashmi Hodges R.N.PROBLEMS:Gallstone(s).Insomnia. --21:32 02/29/20 Rashmi Hodges R.N.Abdominal Pain.UTI - Urinary Tract Infection.Ureterolithiasis.Renal Co lic.Pyelonephritis. --21:38 02/29/20 Travis aTi R.N.Kidney Infection: Resolved. --21:38 02/29/20 Travis Tai [...] the [place] 2 Clinical Report - Nurses [facility] [address] [place] [address] Phone #: ext- [phone] 02/29/2020 21:28 Patient: [...] risk identified. --21:34 02/29/20 Rashmi Hodges R.N.PHYSICAL TDQQVLWOSV58:38 02/29/20. Ambulatory to room.GENERAL / NEURO / [...] Tai R.N. 3 Clinical Report - Nurses [facility] [address] [place] [address] Phone #: ext- [phone] 02/29/2020 21:28 Patient: [...] reaction and precautions. Verbalizes understanding. --22:02/29/20 Travis Tai, RElderNElder22:02/29/2020 Started bag #1 1000 mL IV Fluids NS; at 1500 mL/hr over 40 minute(s) via site #1 via IVpump. Allergies verified and confirmed 5 rights. IV patency established. IV site checked: no pain, redness,or swelling. IV flushed thoroughly pre- and post-medication administration. Information reviewed withpatient including reason for taking this medication, signs of allergic reaction and precautions. Verbalizesunderstanding. --22:02/29/20 Travis Tai, R.N.22:02/29/2020 Zofran (Ondansetron HCl) IVP 8 mg given over 2 minute(s) via site #1. Allergies verifiedand confirmed 5 rights. IV patency established. IV site checked: no pain, redness, or swelling. IV flushedthoroughly pre- and post-medication administration. IVP given by RN. Information reviewed with patientincluding reason for taking this medication, signs of allergic reaction and precautions. Verbalizesunderstanding. --22:02/29/20 Travis Tai, R.N.22:02/29/2020 Toradol (Ketorolac Tromethamine) IVP 15 mg [...] Verbalizes u nderstanding. --22:04 02/29/20 Travis Tai R.N.22:11 02/29/2020 Reglan IVPB via IV site #1 Discontinued: bag #1 completed. Total amount infused: 50mL. IV patency established. IV site checked: no pain, redness, or swelling. IV flushed thoroughly. 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 --22:49 02/29/20 Heath Yu RN23:30 02/29/2020 [...] IV flushed 4 Clinical Report - Nurses [facility] [address] [place] [address] Phone #: ext- [phone] 02/29/2020 21:28 Patient: SCARLET SOLOMON Sex: F : 2000 Age: 20y thoroughly. --00:54 03/01/20 Heath Yu RN 00:38 03/01/2020 IV Fluids NS via IV site #1 Discontinued: discontinued upon discharge. Total amount infused: 960 mL. IV patency established. IV site checked: no pain, redness, or swelling. IV flushed thoroughly. --00:53 03/01/20 Heath Yu RN.DISPOSITION / DISCHARGE Marshall Coma Scale: 15- eyes open- spontaneous (4); [...] Patient verbalized understanding. Written instructions provided in Bermudian. The patient was discharged home and accompanied [...] rce(s) Supporting Document(s) ID Date Data Source [id number] 02/29/2020 09:35:00 PM EDT [facility] 1 Clinical Report - Physicians/Mid Levels [facility] [address] [place] [address] Phone #: ext- [phone] 02/29/2020 21:28 Patient: [...] Oral. 2 Clinical Report - Physicians/Mid Levels [facility] [address] [place] [address] Phone #: ext- [phone] 02/29/2020 21:28 Patient: [...] 0.70) 3 Clinical Report - Physicians/Mid Levels [facility] [address] [place] [address] Phone #: ext- [phone] 02/29/2020 21:28 Patient: [...] Male GFR Interprentation 20-49 yrs >60 mL/min Zvavpt90-48 yrs >56 mL/min Normal 60-69 yrs >49 mL/min Normal 70-79yrs>42 mL/min Normal 80 and above >35 mL/min Normal Female GFRInterpretation 20-39 yrs >60 mL/min Normal 40-49 yrs >58 mL/minNormal 50-59 yrs >51 mL/min Normal 60-69 yrs >45 mL/min Iofxpn75-35 yrs >39 mL/min Normal 80 and above >32 mL/min NormalLipase: (STELLA: 02/29/2020 21:50) ( MsgRcvd 02/29/2020 22:27) Final results Test Result Flag Units (Reference) LIPASE 44 U/L (13 - 60)Urinalysis: (STELLA: 02/29/2020 22:15) ( MsgRcvd 02/29/2020 22:31) Final results Test Result Flag Units (Reference) URINALYSIS URINALYSIS SOURCE R COLOR Yellow (NORMAL: Yello CLARITY Clear (NORMAL: Clear SPEC GRAVITY 1.020 (1.001 - 1.030 pH 6 (5 - 9) GLUCOSE Negative (NORMAL: Negat BILIRUBIN Negative (NORMAL: Negat KETONE Negative (NORMAL: Negat PROTEIN Negative (NORMAL: Negat NITRITE Negative (NORMAL: Negat 4 Clinical Report - Physicians/Mid Levels [facility] [address] [place] [address] Phone #: ext- [phone] 02/29/2020 21:28 Patient: [...] NEGATIVE (NORMAL: NEGAT { KIT LOT # [id number] ){ KIT EXP DATE 159956 ){ PROCEDURAL CONTROL VALID ).PROGRESS AND PROCEDURES Course of Care: 22:37 Feb 29 2020. ED care transferred. Case discussed with Dr Faustin. Assumed care. Brief hx: reucrring UTI's and MCRAE's. Pending items: CT / MRI results. 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 Chronic UTI. Needs Urology referral. Expected disposition: discharge from ED.(Electronically signed by EDIL Moreno 02/29/2020 22:39) Time Seen: 22:45 02/29/2020 (Dr. Faustin assumes care from EDIL Estrada). ED care [...] preceding 5 Clinical Report - Physicians/Mid Levels [facility] [address] [place] [address] Phone #: ext- [phone] 02/29/2020 21:28 Patient: SCARLET SOLOMON Sex: F [...] organomegaly. 6 Clinical Report - Physicians/Mid Levels [facility] [address] [place] [address] Phone #: ext- [phone] 02/29/2020 21:28 Patient: [...] 1.5) 7 Clinical Report - Physicians/Mid Levels [facility] [address] [place] [address] Phone #: ext- [phone] 02/29/2020 21:28 Patient: [...] Male GFR Interprentation 20-49 yrs >60 mL/min Rvliou81-73 yrs >56 mL/min Normal 60-69 yrs >49 mL/min Normal 70-79yrs>42 mL/min Normal 80 and above >35 mL/min Normal Female GFRInterpretation 20-39 yrs >60 mL/min Normal 40-49 yrs >58 mL/minNormal 50-59 yrs >51 mL/min Normal 60-69 yrs >45 mL/min Dsnhgx70-09 yrs >39 mL/min Normal 80 and above [...] corrected result. Previously reported on ( MsgRcvd 02/29/2020:31) as: CLARITY Clear (NORMAL: Clear SPEC GRAVITY 1.010 ( - Above is a corrected result. Previously reported on ( MsgRcvd 02/29/2020) as: SPEC GRAVITY 1.020 ( pH 6 (5 - 9) GLUCOSE NORM (NORMAL: Negat Above is a corrected result. Previously reported on ( MsgRcvd 02/29/2020) as: GLUCOSE Negative (NORMAL: Negat BILIRUBIN NEG (NORMAL: Negat Above is a corrected result. Previously reported on ( MsgRcvd 02/29/2020 22:31) as: BILIRUBIN Negative (NORMAL: Negat KETONE NEG (NORMAL: Negat 8 Clinical Report - Physicians/Mid Levels [facility] [address] [place] [address] Phone #: ext- [phone] 02/29/2020 21:28 Patient: SCARLET SOLOMON Sex: F : 2000 Age: 20yAbove is a corrected result. Previously reported on ( MsgRcvd 02/29/2020 22:31) as: KETONE Negative (NORMAL: Negat PROTEIN 500 A (NORMAL: Negat Above is a corrected result. Previously reported on ( MsgRcvd 02/29/2020 22:31) as: PROTEIN Negative (NORMAL: Negat NITRITE NEG (NORMAL: Negat Above is a corrected result. Previously reported on ( MsgRcvd 02/29/2020 22:31) as: NITRITE Negative (NORMAL: Negat BLOOD 10 A (NORMAL: Negat Above is a corrected result. Previously reported on ( MsgRcvd 02/29/2020) as: BLOOD 25 A (NORMAL: Negat LEUK EST 25 (NORMAL: N egat Above is a corrected result. Previously reported on ( MsgRcvd 02/29/2020:) as: LEUK EST Negative (NORMAL: Negat UROBILINOGEN NOR (less than 1.0 Above is a corrected result. Previously reported on ( [facility] 02/29/2020 22:31) as: UROBILINOGEN 1.0 (less than 1.0 MICROSCOPIC See Below WBC 1 - 3 (NORMAL: NONE RBC 1 - 3 (NORMAL: NONE EPITHELIAL FEW (NORMAL: NONE BACTERIA Trace (NORMAL: NONEBeta-HCG, Qual Urine: (STELLA: 02/29/2020 22:15) ( [facility] 02/29/2020 22:28) Final results Test Result Flag Units (Reference) HCG URINE QUAL NEGATIVE (NORMAL: NEGAT HCG URINE QL REENTER NEGATIVE (NORMAL: NEGAT { KIT LOT # [id number] ){ KIT EXP [id number] ){ PROCEDURAL CONTROL VALID)Abdomen 1 View: (STELLA: 02/29/2020 21:40) ( [facility] 03/01/2020 01:10) In Progress Exam ABDOMEN [address] [place] [address] PHONE: [phone] FAX: [phone] Name .................. : JUANITO Waddell Acct Number.................. : [id number] ROOM. ................. : TR-03 MR Number ................... : [id number] Stay type ............. : E/R Discharge Date......... ... : Admit Date ......... : 02/29/20 Admit Phys .................... : RAMIN ANTHONY Date of ....... : 2000 Family Phys ................... : UNKNOWN CO Phone .................. : [phone] Age ................................ : 20 Film# .................. .:[id number] Sex ................................. : F Unsigned transcriptions are preliminary reports and do not represent a medical or legal document 9 Clinical Report - Physicians/Mid Levels [facility] [address] [place] [address] Phone #: ext- [phone] 02/29/2020 21:28 Patient: SCARLET SOLOMON Sex: F : 2000 Age: 20y ABDOMEN 1 VIEW [address] COMP LETE:02/29/20 21:40 [id number] Reason(s): Flank Pain Right ABDOMEN: SINGLE VIEW [...] In Progress Exam [place] [address] PHONE: [phone] FAX: [phone] Name .................. : JUANITO Waddell Acct Number.................. : [id number] ROOM. ................. : TR-03 MR Number ................... : [id number] Stay type ............. : E/R Discharge Date......... ... : Admit Date ......... : 02/29/20 Admit Phys .................... : RAMIN ANTHONY Date of ....... : 2000 Family Phys ................... : UNKNOWN CO Phone .................. : [phone] Age ................................ : 20 Film# .................. .:[id number] Sex ................................. : F Unsigned transcriptions are preliminary reports and do not represent a medical or legal document CT HEAD W/O CONTRAST [id number] COMPLETE:02/29/20 21:40 [id number] Reason(s): Head Pain CT OF THE HEAD WITHOUT CONTRAST: 10 Clinical Report - Physicians/Mid Levels [facility] [address] [place] [address] Phone #: ext- [phone] 02/29/2020 21:28 Patient: [...] of 1.PROGRESS AND PROCEDURES Course of Care: :Mar 01 2020. Patient is stable. Symptoms much [...] obstruction.INSTRUCTIONS 11 Clinical Report - Physicians/Mid Levels [facility] [address] [place] [address] Phone #: ext- [phone] 02/29/2020 21:28 Patient: SCARLET SOLOMON Sex: F [...] tablet. Refills: 1. Substitution permitted. Pharmacy - [facility] [id number] ; [place] [address]. . Cipro 500 mg tablet Take 1 tablet twice a day for 7 days -- for UTI. Dispense 14 tablet. Refills: 0. Substitution permitted. Pharmacy - [facility] [address] - [id number] ; [place] [address]. Phone: . Follow-up: Follow up with your doctor in three days if not better. Call for an appointment. Reason for referral: evaluation, treatment and UTI / Headache. Understanding of the discharge instructions verbalized by patient and family.(Electronically signed by Samir Faustin, Physician 03/01/2020 01:55) Name Value Range Interpretation Code Description Data Shira rce(s) Supporting Document(s) ID Date Data Source [id number] 03/01/2020 12:24:00 AM EDT [facility] Name Value Range Interpretation Code Description Data [facility] rce(s) Supporting Document(s) [facility] COL[facility] yellow NORMAL: Yellow [facility] CLARITY clear NORMAL: Clear [facility] Specific gravity of Urine by Test strip 1.010 1.001 - 1.030 [facility] pH 6 5 - 9 [facility] Glucose [Mass/volume] in Urine by Test strip NORM NORMAL: Negat [facility] Bilirubin.total [Presence] in Urine by Test strip NEG NORMAL: Negative [facility] Ketones [Presence] in Urine by Test strip NEG NORMAL: Negative [facility] Protein [Mass/volume] in Urine by Test strip 500 NORMAL: Negat junie [facility] Nitrite [Presence] in Urine by Test strip NEG NORMAL: Negative [facility] BLOOD 10 NORMAL: Negative [facility] Leukocyte esterase [Presence] in Urine by Test strip 25 MAURIZIO L: Negative [facility] Urobilinogen [Mass/volume] in Urine by Test strip NOR less rocky n 1.0 mg/dL [facility] MICROSCOPIC See Below [facility] ital WBC 1 - 3 NORMAL: NONE SEEN [facility] Erythrocytes [#/volume] in Urine by Test strip 1 - 3 NORMAL: NON E SEEN [facility] EPITHELIAL FEW NORMAL: NONE SEEN [facility] Bacteria [Presence] in Urine sediment by Light microscopy Tr kristina NORMAL: NONE SEEN [facility] ID Date Data Source [id number] 02/29/2020 10:28:00 PM EDT [facility] Name Value Range Interpretation Code Description Data Shira rce(s) Supporting Document(s) HCG URINE QUAL NEGATIVE NORMAL: NEGATIVE [facility] HCG URINE QL REENTER NEGATIVE NORMAL: NEGATIVE [facility] { KIT LOT # [id number] ){ KIT EXP DATE 349115 ){ PROCEDURAL CONTROL VALID ) ID Date Data Source [id number] 02/29/2020 10:26:00 PM EDT [facility] Name Value Range Interpretation Code Description Data Shira rce(s) Supporting Document(s) Lipase [Enzymatic activity/volume] in Serum or Plasma 44 U/L 13 - 60 [facility] ID Date Data Source [id number] 02/29/2020 10:26:00 PM EDT [facility] Name Value Range Interpretation Code Description Data Shira rce(s) Supporting Document(s) COMPREHENSIVE METABOLIC PANEL [facility] COMPREHENSIVE METABOLIC PANEL Sodium [Moles/volume] in Serum or Plasma 136 mEq/L 134 - 153 [facility] Potassium [Moles/volume] in Serum or Plasma 3.8 mEq/L 3.6 - 5.0 [facility] Chloride [Moles/volume] in Serum or Plasma 101 mEq/L 98 - 107 [facility] Carbon dioxide, total [Moles/volume] in Serum or Plasma 25 MEQ/L 22 - 30 [facility] Glucose [Mass/volume] in Serum or Plasma 118 MG/DL 65 - 110 H [facility] BUN 17 MG/DL 7 - 21 [facility] Creatinine [Mass/volume] in Serum or Plasma 0.6 MG/DL 0.7 - 1.5 L [facility] BUN/CREAT 28 8 - 27 H [facility] Protein [Mass/volume] in Serum or Plasma 7.0 G/DL 6.3 - 8.2 [facility] Albumin [Mass/volume] in Serum or Plasma 4.4 G/DL 3.9 - 5.0 [facility] Globulin [Mass/volume] in Serum by calculation 2.6 GM/DL 2.4 - 3.2 [facility] A/G RATIO 1.7 0.8 - 2.0 [facility] Calcium [Mass/volume] in Serum or Plasma 9.3 MG/DL 8.4 - 10.2 [facility] Bilirubin.total [Mass/volume] in Serum or Plasma 0.7 MG/DL 0.2 - 1.3 [facility] Alkaline phosphatase [Enzymatic activity/volume] in Serum or Plasma 95 U/L 38 - 126 [facility] Aspartate aminotransferase [Enzymatic activity/volume] in Serum or Plasma 29 U/L 5 - 40 [facility] Alanine aminotransferase [Enzymatic activity/volume] in Seru m or Plasma 39 U/L 7 - 56 [facility] Anion gap 3 in Serum or Plasma 10.0 mmol/L 8.0 - 16.0 [facility] AGE [address] [facility] al NON-AA GFR >60 mL/min [facility] AFR AMER GFR >60 mL/min [facility] Male GFR In [...] >32 mL/min Normal ID Date Data Source [id number] 02/29/2020 10:11:00 PM EDT [facility] Name Value Range Interpretation Code Description Data Shira rce(s) Supporting Document(s) CBC W/AUTOMATED DIFF [facility] COMPLETE BLOOD COUNT Leukocytes [#/volume] in Blood by Automated count 12.6 10^3/uL 4.2 - 11.0 H [facility] Erythrocytes [#/volume] in Blood by Automated count 4.35 10^6/uL 4. 20 - 5.40 [facility] Hemoglobin [Mass/volume] in Blood 13.2 g/dL 12.0 - 16.0 [facility] Hematocrit [Volume Fraction] of Blood by Automated count 39.2 % 3 7.0 - 47.0 [facility] Erythrocyte mean corpuscular volume [Entitic volume] by Auto mated count 90.1 fL 81.0 - 101 [facility] Erythrocyte mean corpuscular hemoglobin [Entitic mass] by Automated count 30.3 pg 27.0 - 34.0 [facility] Erythrocyte mean corpuscular hemoglobin concentration [Mass/volume] by Automated count 33.7 g/dL 31.0 - 36.0 [facility] Erythrocyte distribution width [Ratio] by Automated count 11.7 % 11.5 - 14.5 [facility] Platelets [#/volume] in Blood by Automated count 373 10^3/uL 150 - 45 0 [facility] Platelet mean volume [Entitic volume] in Blood by Automated count 8.7 fL 7.4 - 10.4 [facility] Neutrophils/100 leukocytes in Blood by Automated count 67.0 % 37. 0 - 80.0 [facility] Lymphocytes/100 leukocytes in Blood by Manual count 22.8 % 25.0 - 40.0 L [facility] Monocytes/100 leukocytes in Blood by Automated count 7.6 % 3.0 - 8.0 [facility] Eosinophils/100 leukocytes in Blood by Automated count 1.9 % 0.0 - 7.0 [facility] Basophils/100 leukocytes in Blood by Automated count 0.5 % 0.0 - 2.5 [facility] %IG 0.2 % 0.0 - 0.[address] [facility] al %NRBC 0.0 % 0.0 - 0.0 [facility] al Neutrophils [#/volume] in Blood by Automated count 8.45 10^3/uL 2.00 - 6.90 H [facility] Lymphocytes [#/volume] in Blood by Automated count 2.87 10^3/uL 0.60 - 3.40 [facility] Monocytes [#/volume] in Blood by Automated count 0.96 10^3/uL 0.00 - 0.90 H [facility] Eosinophils [#/volume] in Blood by Automated count 0.24 10^3/uL 0.00 - 0.70 [facility] Basophils [#/volume] in Blood by Automated count 0.06 10^3/uL 0.00 - 0.20 [facility] #IG 0.03 10^3/uL 0.00 - 0.10 [facility] #NRBC 0.00 10^3/uL 0.00 - 0.00 [facility] MANUAL DIFF NOT INDICATED [facility] RBC MORPH NOT INDICATED [facility] ID Date Data Source [id number] 02/09/2020 11:06:00 PM EDT [facility] 1 OrderSheet [facility] [address] [place] [address] Phone #: cwl- [phone] 02/09/2020 23:06 Patient: SCARLET SOLOMON Sex: F [...] RN Physician;Urinalysis (Clean STAT 23:32 02/09/2020 23:34 Joseluis Yu RN Physician;Blood Culture STAT 23:36 02/09/2020 23:44 [id number] X2 (Sched Torrey Yu RN23:36 02/09/2020) Physicia n;Blood Culture STAT 23:36 02/09/2020 00:23 02/10/2020q10m X2 (Sched Torrey Yu RN23:46 02/09/2020) Physician;DIAGNOSTIC STUDY ORDERSOrder Description Priority Entered Acknowledged InitialedCT ABD PEL W/O STAT 00:28 02/10/2020 00:33 StevenOral W/O IV Torrey Yu RNContrast Physician;(Oxygen?(No)) 2 OrderSheet [facility] [address] [place] [address] Phone #: ext- [phone] 02/09/2020 23:06 Patient: [...] mg 01:36 02/10/2020 Ack'd: 01:41 Marti 01:48 Martiwicho Yu RElderNElder Physician;Dallas (5-325mg) 01:36 02/10/2020 Ack'd: 01:41 Marti 01:48 Marti BlairPO 1 tab (HIGH Torrey Yu RElderNElderALERT Physician;MEDICATION)GENERAL ORDERSOrder Description Priority Entered Acknowledged Initialed[Electronically signed by Torrey Arevalo (01:45 02/10/2020)][Electronically signed by Marti Porter R.N. (07:19 02/10/2020)][Electronically locked by Marti Porter R.N. (07:19 02/10/2020)] Name Value Range Interpretation Code Description Data Shira rce(s) Supporting Document(s) ID Date Data Source [id number] 02/09/2020 11:06:00 PM EDT [facility] 1 Medication Reconciliation Report [facility] [address] [place] [address] Phone #: [phone] viu- [phone] 02/09/2020 23:06 Patient: SCARLET SOLOMON Sex: F [...] 18 tablet. Refills: 0. Substitution permitted.Pharmacy - [facility] [address] ; [place] [address]. .Cipro 500 mg tablet Take 1 tablet twice a day for 7 days -- Dispense 14 tablet. Refills: 0. Substitutionpermitted.Pharmacy - [facility] [address] ; [place] [address]. . -- Torrey Arevalo, Physician Name Value Range Interpretation Code Description Data Shira rce(s) Supporting Document(s) ID Date Data Source [id number] 02/09/2020 11:06:00 PM EDT [facility] 1 Medication Administration Record [facility] [address] [place] [address] Phone #: ext- [phone] 02/09/2020 23:06 Patient: SCARLET SOLOMON Sex: F [...] 4 mg23:50 0 02/09/2020 Dose: 4 mg Odalys Yu RN Site: #1 right ACGiven CIPRO [PO] (CIPROFLOXACIN) Cipro PO 500 mg01:43 02/10/2020 Dose: 500 mg Tablets Venkatesh Jay Yu R.N.Given NORCO (5-325MG) [PO] Dallas (5-325mg) PO 1 tab (HIGH01:43 02/10/2020 (ACETAMINOPHEN- HYDROCODONE) ALERT MEDICATION)Marti Jay Yu R.N. Dose: 1 tab 5/325 mg Tablets PO Name Value Range Interpretation Code Description Data Shira rce(s) Supporting Document(s) ID Date Data Source [id number] 02/09/2020 11:06:00 PM EDT [facility] 1 General Instructions [facility] [address] [place] [address] Phone #: ext- [phone] 02/09/2020 23:06 Patient: SACRLET SOLOMON Sex: F : 2000 Age: 20yUreterolithiasis (single stone) on the right.Acute urinary tract infection with cystitis. No hematuria.INSTRUCTIONSDrink plenty of fluids. No alcohol.(Strain urine. Use back up form of control for this and next cycle).Warnings: Further evaluation is necessary (Urology consultation.). It is very important to [facility].SEDATIVE MEDICATION: You were given sedative medication [...] 18 tablet. Refills: 0. Substitution permitted.Pharmacy - [facility] [address] ; [place] [address]. .Cipro 500 mg tablet Take 1 tablet twice a day for 7 days -- Dispense 14 tablet. Refills: 0. Substitutionpermitted.Pharmacy - [facility] [address] - [address] ; [place] [address]. .Und erstanding of the discharge instructions verbalized by patient.Follow-up with: [facility] Respective Team Luci [place], , , [address], , [place], [address] Follow up Tuesday in two days. Call for an appointment. Reason for referral: evaluation and treatment.Summary of care provided to patient and family via paper. 2 General Instructions [facility] [address] [place] [address] Phone #: ext- [phone] 02/09/2020 23:06 Patient: SCARLET SOLOMON Sex: F [...] Urgent need to urinate 3 General Instructions [facility] [address] [place] [address] Phone #: [phone] qbp- [phone] 02/09/2020 23:06 Patient: SCARLET SOLOMON Sex: F [...] a diaphragm for controlTreatment 4 General Instructions [facility] [address] [place] [address] Phone #: ext- [phone] 02/09/2020 23:06 Patient: [...] you have repeat infections. 5 General Instructions [facility] [address] [place] [address] Phone #: ext- [phone] 02/09/2020 23:06 Patient: SCARLET SOLOMON Sex: F [...] swelling in the outer vaginal area (labia) [id number] [employer]. [address] [place] [address]. All rights reserved. This information is not intended as asubstitute for professional medical care. Always follow your healthcare professional's instructions. You have been given the following additional information: Bladder Infection, Female (Adult)(Electronically signed by Torrey Arevalo, Physician 02/10/2020 01:45) 6 General Instructions [facility] [address] [place] [address] Phone #: ext- [phone] 02/09/2020 23:06 Patient: SCARLET SOLOMON Sex: F : 2000 Age: 20y Name Value Range Interpretation Code Description Data Shira rce(s) Supporting Document(s) ID Date Data Source [id number] 02/09/2020 11:06:00 PM EDT [facility] 1 Clinical Report - Nurses [facility] [address] [place] [address] Phone #: ext- [phone] 02/09/2020 23:06 Patient: [...] the RLQ. ( urinating difficulties, small amounts).Treatment FURNITURE MAKER:None.SEPSIS SCREEN: Sepsis Screen negative. No suspected or confirmed signs of infection present. --23:156 Heath Yu RN23:10 02/09/20. BP: 138/84 (regular adult cuff) taken on the right arm, via an automated monitor, whilelying. MAP: 102. HR: 101 (regular, normal rate and strong). RR: 16 (regular, unlabored and normal). V9prugkyaygl: 100% on room air. Temp: 97.6 F [...] 2020. Uses 2 Clinical Report - Nurses [facility] [address] [place] [address] Phone #: ext- [phone] 02/09/2020 23:06 Patient: [...] Saline lock 3 Clinical Report - Nurses [facility] [address] [place] [address] Phone #: [phone] ext- [phone] 02/09/2020 23:06 Patient: SCARLET SOLOMON Sex: F [...] allergic reaction and precautions. Verbalizesunderstanding. --23:51 02/09/20 Alyson Moore transported to sonogram by wheelchair with forensic technician. --00:18 02/10/20 Heath Yu RNCharted On Wrong Patient --00:34 02/10/20 Alyson Moore transported to CT by wheelchair with forensic technician. --00:34 02/10/20 Alyson Moore returned from CT by wheelchair with forensic technician. --00:43 02/10/20 Heath Yu RN( Lactic Acid result 0.9 reported to ED from LAB which was a send out to [facility]. notified.). --01: Marti Yu, RElderN.01:43 02/10/2020 Cipro (Ciprofloxacin) PO Tablets 500 mg given. Allergies verified and confirmed 5 rights.Information reviewed with patient including reason for taking this medication. Verbalizes understanding.--01:48 02/10/20 Marti Yu R.N.01:43 02/10/2020 NORCO (5- 325MG) (Acetaminophen-HYDROcodone) PO 5/325 mg Tablets 1 tab given.Allergies goldie ified and confirmed 5 rights. Information reviewed with patient including reason for taking thismedication and sedative warning. Verbalizes understanding. --01:48 02/10/20 Marti Yu R.N.01:48 02/10/2020 IV Fluids NS via IV site #1 Discontinued: discontinued upon discharge. Total amountinfused: 500 mL. IV patency established. IV site checked: no pain, redness, or swelling. IV flushedthoroughly. --01:49 02/10/20 Marti Yu R.N.01:49 02/10/2020 Site #1 removed upon discharge. Bandage applied. --01:49 02/10/20 Marti Yu R.N. 4 Clinical Report - Nurses [facility] [address] [place] [address] Phone #: ext- [phone] 02/09/2020 23:06 Patient: SCARLET SOLOMON Sex: F : 2000 Age: 20yDISPOSITION / DISCHARGE Condition at departure: improved and stable. No learning barriers present. Reviewed medication(s). Prescription(s) sent electronically to pharmacy. Patient verbalized understanding. Written instructions provided in Bermudian. The patient was discharged by the physician. She was discharged home and accompanied by etiquette teacher. She left ambulatory and via private vehicle. Airport Operations Specialist driving. --01:50 02/10/20 Marti Yu R.N. 01:49 02/10/20. BP: 138/72. MAP: 94. HR: 81. RR: 16. O2 saturation: 99%. Temp: 98.7 F. Pain level now: 10/22. --01:50 02/10/20 Marti Yu R.N. Departure time: 01:57 02/10/2020. --01:57 02/10/20 Marti Yu R.N.Locked/Released at 02/10/2020 07:19 by Marti Yu R.N. Name Value Range Interpretation Code Description Data Shira rce(s) Supporting Document(s) ID Date Data Source [id number] 02/09/2020 11:06:00 PM EDT [facility] 1 Clinical Report - Physicians/Mid Levels [facility] [address] [place] [address] Phone #: ext- [phone] 02/09/2020 23:06 Patient: [...] HISTORY 2 Clinical Report - Physicians/Mid Levels [facility] [address] [place] [address] Phone #: ext- [phone] 02/09/2020 23:06 Patient: SCARLET SOLOMON Sex: F [...] air. Temp: 97.6 F. Pain level now: 7/10. Have been reviewed as abnormal. Blood pressure [...] ABD //T// PELV W/O [place] [address] ---------NAME--------- NUMBER SEX AGE ADMIT DISC. XRAY# F/C TYPE JUANITO NOVAK F [id number] 20 02/09/2019690922 E/R DATE OF : 2000 M/R# [id number] #: [id number] TR-05 LOCATION: TRANSCRIBED: 02/10/20 1:[address] ABD //T// PELV W/O ORAL W/[place] [address] COMPLETED:02/10/20 44 KJE 12750 Reason(s): Abdominal Pain PHYSICIAN: LUISANA SOLO R A D I O L O G Y R E P O R T 3 Clinical Report - Physicians/Mid Levels [facility] [address] [place] [address] Phone #: ext- [phone] 02/09/2020 23:06 Patient: SCARLET SOLOMON Sex: F : 2000 Age: 20yPATIENT HISTORY:Abdominal Pain ACC DLP- 917.5mGy*cmPT NEG BETA. VERIFIED 2 IDENTIFIERS. SENT TO [facility]. KJE / ABD/PEL (DICOM Hx)EXAM: CT Abdomen [...] as 4 Clinical Report - Physicians/Mid Levels [facility] [address] [place] [address] Phone #: ext- [phone] 02/09/2020 23:06 Patient: [...] NEGATIVE (NORMAL: NEGAT { KIT LOT # [id number] ){ KIT EXP [id number] ){ PROCEDURAL CONTROL VALID)CBC w Diff: (STELLA: [...] results 5 Clinical Report - Physicians/Mid Levels [facility] [address] [place] [address] Phone #: ext- [phone] 02/09/2020 23:06 Patient: [...] Male GFR Interprentation 20-49 yrs >60 mL/min Ysoweh41-18 yrs >56 mL/min Normal 60-69 yrs >49 mL/min Normal 70-79yrs>42 mL/min Normal 80 and above >35 mL/min Normal Female GFRInterpretation 20-39 yrs >60 mL/min Normal 40-49 yrs >58 mL/minNormal 50-59 yrs >51 mL/min Normal 60-69 yrs >45 mL/min Ipyuxp20-97 yrs >39 mL/min Normal 80 and above >32 mL/min NormalLipase: (STELLA: 02/09/2020 23:30) ( MsgRcvd 02/10/2020 00:19) Final results Test Result Flag Units (Reference) LIPASE 49 U/L (13 - 60)Urinalysis: (STELLA: 02/09/2020 23:20) ( MsgRcvd 02/09/2020 23:49) Final results Test Result Flag [...] NONE 6 Clinical Report - Physicians/Mid Levels [facility] [address] [place] [address] Phone #: ext- [phone] 02/09/2020 23:06 Patient: [...] Dispense 18 tablet. Refills: 0. Substitution permitted. [facility] [id number] ; [place] [address]. . Cipro 500 mg tablet Take 1 tablet twice a day for 7 days -- Dispense 14 tablet. Refills: 0. Substitution permitted. [facility] [id number] ; [place] [address]. . 7 Clinical Report - Physicians/Mid [facility] Emergency Department [address] [place] [address] Phone #: ext- [phone] 02/09/2020 23:06 Patient: SCARLET SOLOMON Sex: F : 2000 Age: 20y Understanding of the discharge instructions verbalized by patient. Follow-up with: [facility] Respective Team Luci BAEZ, , , [address] [facility] [place], , [place], [address] Follow up Tuesday in two days. Call for an appointment. Reason for referral: evaluation and treatment. Summary of care provided to patient and family via paper.(Electronically signed by Torrey Arevalo, Physician 02/10/2020 01:45) Name Value Range Interpretation Code Description Data Shira rce(s) Supporting Document(s) ID Date Data Source [id number] 02/10/2020 01:25:00 AM EDT [facility] [address] [place] [address] ---------NAME--------- NUMBER SEX AGE ADMIT DISC. XRAY# F/C TYPE JAUNITO Waddell [id number] F 02/09/[id number] E/R DATE OF : 2000 M/R# [id number] #: [id number] TR-05 LOCATION: TRANSCRIBED: 02/10/20 1:[address] ABD //T// PELV W/[place] ORAL W/[place] [id number] COMPLETED:02/10/20 44 KJE 40794 Reason(s): Abdominal Pain PHYSICIAN: LUISANA SOLO R A D I O L O G Y R E P O R T PATIENT HISTORY:Abdominal Pain ACC DLP- 917.5mGy*cmPT NEG BETA. VERIFIED 2 IDENTIFIERS. SENT TO [facility]. KJE / ABD/PEL (DICOM Hx)EXAM: CT Abdomen [...] rce(s) Supporting Document(s) ID Date Data Source [id number] 02/15/2020 11:58:00 AM EDT [facility] [address] Name Value Range Interpretation Code Description Data Shira rce(s) Supporting Document(s) Bacteria identified in Blood by Culture [facility] NO GROWTH AFTER 5 DAYS ID Date Data Source [id number] 02/15/2020 01:39:00 PM EDT [facility] Name Value Range Interpretation Code Description Data Shira rce(s) Supporting Document(s) CULTURE BLOOD [facility] _CULTURE BLOOD_{ PRELIM TEST PERFORMED AT [address] [address] CLIA# [id number] SEE SCANNED REPORT ID Date Data Source [id number] 02/15/2020 11:58:00 AM EDT [facility] [address] Name Value Range Interpretation Code Description Data Shira rce(s) Supporting Document(s) Bacteria identified in Blood by Culture [facility] NO GROWTH AFTER 5 DAYS ID Date Data Source [id number] 02/10/2020 01:20:00 AM EDT [facility] Called/Faxed results at 0125 to Beth (Pushpa )..[facility] 02/10/2020 Name Value Range Interpretation Code Description Data Shira rce(s) Supporting Document(s) Lactic w Rfx (if elevated) 0.9 mmol/L 0.5-2.2 N [facility] ID Date Data Source [id number] 02/15/2020 01:38:00 PM EDT [facility] Name Value Range Interpretation Code Description Data Shira rce(s) Supporting Document(s) CULTURE BLOOD [facility] _CULTURE BLOOD_{ PRELIM TEST PERFORMED AT [address] [address] CLIA# [id number] SEE SCANNED REPORT ID Date Data Source [id number] 02/10/2020 01:57:00 AM EDT [facility] Name Value Range Interpretation Code Description Data Shira rce(s) Supporting Document(s) LACTIC ACID (LACTATE) [facility] TEST PERFORMED AT [address] [address] CLIA# [id number] SEE SCANNED REPORT ID Date Data Source [id number] 02/10/2020 12:32:00 AM EDT [facility] Name Value Range Interpretation Code Description Data Shira rce(s) Supporting Document(s) CBC W/AUTOMATED DIFF [facility] COMPLETE BLOOD COUNT Leukocytes [#/volume] in Blood by Automated count 12.6 10^3/uL 4.2 - 11.0 H [facility] Erythrocytes [#/volume] in Blood by Automated count 4.66 10^6/uL 4. 20 - 5.40 [facility] Hemoglobin [Mass/volume] in Blood 14.1 g/dL 12.0 - 16.0 [facility] Hematocrit [Volume Fraction] of Blood by Automated count 42.2 % 3 7.0 - 47.0 [facility] Erythrocyte mean corpuscular volume [Entitic volume] by Auto mated count 90.6 fL 81.0 - 101 [facility] Erythrocyte mean corpuscular hemoglobin [Entitic mass] by Automated count 30.3 pg 27.0 - 34.0 [facility] Erythrocyte mean corpuscular hemoglobin concentration [Mass/volume] by Automated count 33.4 g/dL 31.0 - 36.0 [facility] Erythrocyte distribution width [Ratio] by Automated count 11.7 % 11.5 - 14.5 [facility] Platelets [#/volume] in Blood by Automated count 353 10^3/uL 150 - 45 0 [facility] Platelet mean volume [Entitic volume] in Blood by Automated count 8.7 fL 7.4 - 10.4 [facility] Neutrophils/100 leukocytes in Blood by Automated count 64.2 % 37. 0 - 80.0 [facility] Lymphocytes/100 leukocytes in Blood by Manual count 23.0 % 25.0 - 40.0 L [facility] Monocytes/100 leukocytes in Blood by Automated count 10.4 % 3.0 - 8.0 H [facility] Eosinophils/100 leukocytes in Blood by Automated count 1.7 % 0.0 - 7.0 [facility] Basophils/100 leukocytes in Blood by Automated count 0.4 % 0.0 - 2.5 [facility] %IG 0.3 % 0.0 - 0.0 [facility]BC 0.0 % 0.0 - 0.0 [facility] al Neutrophils [#/volume] in Blood by Automated count 8.10 10^3/uL 2.00 - 6.90 H [facility] Lymphocytes [#/volume] in Blood by Automated count 2.90 10^3/uL 0.60 - 3.40 [facility] Monocytes [#/volume] in Blood by Automated count 1.31 10^3/uL 0.00 - 0.90 H [facility] Eosinophils [#/volume] in Blood by Automated count 0.21 10^3/uL 0.00 - 0.70 [facility] Basophils [#/volume] in Blood by Automated count 0.05 10^3/uL 0.00 - 0.20 [facility] #IG 0.04 10^3/uL 0.00 - 0.10 [facility] #NRBC 0.00 10^3/uL 0.00 - 0.00 [facility] MANUAL DIFF SEE BELOW [facility] Segmented neutrophils/100 leukocytes in Blood by Manual count 64 % 37 - 80 [facility] BAND 1 % 0 - 5 [facility] %LYMPH 29 % 25 - 40 [facility] %MONO 6 % 3 - 8 [facility] RBC MORPH MORPH IS NORMAL [facility] ID Date Data Source [id number] 02/10/2020 12:19:00 AM EDT [facility] Name Value Range Interpretation Code Description Data Shira rce(s) Supporting Document(s) Lipase [Enzymatic activity/volume] in Serum or Plasma 49 U/L 13 - 60 [facility] ID Date Data Source [id number] 02/10/2020 12:19:00 AM EDT [facility] Name Value Range Interpretation Code Description Data Shira rce(s) Supporting Document(s) COMPREHENSIVE METABOLIC PANEL [facility] COMPREHENSIVE METABOLIC PANEL Sodium [Moles/volume] in Serum or Plasma 138 mEq/L 134 - 153 [facility] Potassium [Moles/volume] in Serum or Plasma 3.9 mEq/L 3.6 - 5.0 [facility] Chloride [Moles/volume] in Serum or Plasma 103 mEq/L 98 - 107 [facility] Carbon dioxide, total [Moles/volume] in Serum or Plasma 26 MEQ/L 22 - 30 [facility] Glucose [Mass/volume] in Serum or Plasma 105 MG/DL 65 - 110 [facility] BUN 13 MG/DL 7 - 21 [facility] Creatinine [Mass/volume] in Serum or Plasma 0.7 MG/DL 0.7 - 1.5 [facility] BUN/CREAT 19 8 - 27 [facility] Protein [Mass/volume] in Serum or Plasma 7.7 G/DL 6.3 - 8.2 [facility] Albumin [Mass/volume] in Serum or Plasma 4.4 G/DL 3.9 - 5.0 [facility] Globulin [Mass/volume] in Serum by calculation 3.3 GM/DL 2.4 - 3.2 H [facility] A/G RATIO 1.3 0.8 - 2.0 [facility] Calcium [Mass/volume] in Serum or Plasma 9.2 MG/DL 8.4 - 10.2 [facility] Bilirubin.total [Mass/volume] in Serum or Plasma <0.7 MG/DL 0.2 - 1.3 [facility] Alkaline phosphatase [Enzymatic activity/volume] in Serum or Plasma 107 U/L 38 - 126 [facility] Aspartate aminotransferase [Enzymatic activity/volume] in Serum or Plasma 30 U/L 5 - 40 [facility] Alanine aminotransferase [Enzymatic activity/volume] in Seru m or Plasma 31 U/L 7 - 56 [facility] Anion gap 3 in Serum or Plasma 9.0 mmol/L 8.0 - 16.0 [facility] AGE [address] [facility] al NON-AA GFR >60 mL/min [facility] AFR AMER GFR >60 mL/min [facility] spital Male GFR In terprentation [...] >32 mL/min Normal ID Date Data Source [id number] 02/14/2020 03:27:00 PM EDT [facility] Name Value Range Interpretation Code Description Data Shira rce(s) Supporting Document(s) CULTURE URINE [facility] _CULTURE URINE_$$[id number]$$[id number]$$[id number]$$[id number]$$[id number]$$[id number]$$[id number]$$[id number]$$[id number]$$ 262083$$670826$$190957$$103381$$[id number]$$[id number]$$259022$$283729$$278770$$212327$$ 914421$$629670$$026310$$319019$$267367$$024667$$[id number]$$[id number] -- Continued on next page --Patient: JUANITO Waddell Order: [id number] Page 2Culture: CULTURE URINE Status: Final ==== -- Continued on next page --Patient: JUANITO Waddell Order: [id number] Page 2Culture: CULTURE URINE Status: Prelim =====$$[id number] DATE/TIME: 02/14/2020 15:06Culture: CULTURE URINE Status: FinalIsolate 1 Escherichia coli Flag: A . . . . . . .150,000-100,000 colony forming units per mLSusceptibility profile is consistent with a probable ESBL. Previous result entered on 02/13/2020 04:07 ET Escherichia coliUrine Culture,Comprehensive: [id number] coli Flag: APatient: JUANITO Waddell Order: [id number] Page 3Culture: CULTURE URINE Status: Final ISOLATE [...] S S . . . . . .44411- 0Gentamicin S S . . . . . .267-5Imipenem S S . . . . . .279-0Levofloxacin S S . . . . . .38248-9Sxzdqbfqc S S . . . . . .6652-2Nitrofurantoin S S . . . . . .363- 2Piperacillin/Tazobactam S S . . . . . .412-7Tetracycline R R . . . . . .496-0Tobramycin S S . . . . . .508-2Trimethoprim/Sulfa R R . . . . . .516-5P1 Test performed by: [facility] Michael GUAMAN #: [id number] [address] [place] [address] [id number] [facility] [id number] Director : Keith Hollis MD NPI #:Special Services Director : 02/13/20.0646.XMT.SENT REF 02/14/20152.XMT.SENT REF 02/14/20153.XMT.SENT REF ID Date Data Source [id number] 02/09/2020 11:49:00 PM EDT [facility] Name Value Range Interpretation Code Description Data Shira rce(s) Supporting Document(s) [facility] S[facility] R [facility] COLOR yellow NORMAL: Yellow [facility] CLARITY turbid NORMAL: Clear [facility] Specific gravity of Urine by Test strip 1.010 1.001 - 1.030 [facility] pH 7 5 - 9 [facility] Glucose [Mass/volume] in Urine by Test strip NORM NORMAL: Negat [facility] Bilirubin.total [Presence] in Urine by Test strip NEG NORMAL: Negative [facility] Ketones [Presence] in Urine by Test strip NEG NORMAL: Negative [facility] Protein [Mass/volume] in Urine by Test strip 30 NORMAL: Negat [facility] Nitrite [Presence] in Urine by Test strip POS NORMAL: Negative [facility] BLOOD 50 NORMAL: Negative [facility] Leukocyte esterase [Presence] in Urine by Test strip 500 MAURIZIO L: Negative [facility] Urobilinogen [Mass/volume] in Urine by Test strip NOR less rocky n 1.0 mg/dL [facility] MICROSCOPIC See Below [facility] ital WBC 10 - 15 NORMAL: NONE SEEN A [facility] Erythrocytes [#/volume] in Urine by Test strip 7 - 10 NORMAL: NON E SEEN A [facility] EPITHELIAL MODERATE NORMAL: NONE SEEN A [facility] Bacteria [Presence] in Urine sediment by Light microscopy 1+ SMALL NORMAL: NONE SEEN [facility] ID Date Data Source [id number] 02/09/2020 11:46:00 PM EDT [facility] Name Value Range Interpretation Code Description Data Shira rce(s) Supporting Document(s) HCG URINE QUAL NEGATIVE NORMAL: NEGATIVE [facility] HCG URINE QL REENTER NEGATIVE NORMAL: NEGATIVE [facility] { KIT LOT # [id number] ){ KIT EXP DATE 05-27-21 ){ PROCEDURAL CONTROL VALID ) Procedure Vital Signs ID Date Data Source UNK Name Value Range Interpretation Code Description Data Source(s) Body surface area Derived from formula 2.04 m2 2.04 m2 [facility] ([facility]) Body mass index (BMI) [Ratio] 33.9 kg/m2 33.9 k g/m2 [facility] ([facility]) Body height 66 [in_i] 66 [in_i] [facility] ([facility]) 5'6" Body weight 95.256 kg 95.256 kg [facility] ([facility]) Body weight 210.00 [lb_av] 210.00 [lb_av] [facility] ([facility]) Oxygen saturation in Arterial blood by Pulse oximetry 98 % 98 % [facility] ([facility]) Respiratory rate 16 /min 16 /min [facility] ( [facility]) Body temperature 98.0 [degF] 98.0 [degF] [facility] ([facility]) Heart rate 96 /min 96 /min [facility] ([facility]) Diastolic blood pressure 85 mm[Hg] 85 mm[Hg] [facility] ([facility]) Systolic blood pressure 134 mm[Hg] 134 mm[Hg] [facility]
[2020-09-12 06:17] VITALS: BP 141/82
--- NOTE | 2020-09-12 12:55 | MHHPEPDOC ---
General Date Of Admission: Sep 11, 2020 Legal Status: 9.39 Chief Complaint Patient had a recent suicide attempt via overdose History of Present Illness HISTORY OF THE PRESENT ILLNESS: Per ED reports: Pt is [employer] x 3 years, 1 deployment to [place] (no combat), is currently in process of being med-boarded out of [employer]. PT admits to feeling "overwhelmed" at work recently, yesterday admits she took overdose with suicidal intent, admits it was "impulsive" though she adds she has been feeling increasingly depressed/hopeless for past week. Pt only reports occupational stressors, states "I feel like no matter what I do it will be wrong", pt states she has been working with her unit to change her duty, feels very intimidated by her "work environment". Pt reports she took the pills and then called her friend who brought her to [facility] ED. PT denies HI/AH/VH, denies any substance abuse, has been in tx at [facility] but has not been taking any meds for several months, states they were stopped when pt began c/o side effects "feeling out of it". Pt is pleasant/quiet, soft spoken, s/w guarded, admits to prior attempt(jumping in [facility]) and admission to [facility] 05/04. 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 She reports that she gets overwhelmed at work because people give her a lot of last minute paperwork that needs to be completed myrna. She states she is currently established at [facility] and attends weekly appointments, where she states she has 'learned a lot about myself - like when my emotions get out of control, I make impulsive decisions." she states that before she was admitted she was trying to handle her stress herself, "which isn't the best move because that's when I become impulsive." She states she took about 5, 600 mg tablets of ibuprofen, but that she doesn't like to take a lot of pills at once so was taking them once at a time, which gave her time to realize she shouldn't be doing that so she used her safety plan than that she had and called her friend who brought her to the Emergency room. She currently denies any suicidal thoughts. Psychiatric Review of Systems Depression (2 or more weeks): suicidal thoughts (before admission), denies Michelle (4 or more days of): denies Psychosis: denies PTSD: denies Anxiety: situational anxiety, stressor related anxiety, panic attacks (1-2, but reports they are not often, states that last time was April 2020, before admission. ), denies Anxiety/ 6 months or more of: other Past Psychiatric History Previous Psychiatric Diagnosis: unspecified depressive disorder unspecified anxiety disorder Previous Psychiatric Admissions: [facility] april 2020, both admissions related to work stress Suicide Attempts: april 2020 Psychiatric Follow-up: [facility] - weekly Psychiatric medications: none Past Medical History Medical Problems Past Medical History Medical Problems Medical: Unremarkable Surgeries: Gall Bladder Medications: None, OTC pain medications Allergies: No known drug allergies, no food allergies, no environmental allergies Head Injury: No Seizures: No (psychiatric - last admitted in 04/2020) Hospitalizations: Yes Surgeries: Yes Family Medical/Psychiatric HX Medical Problems Family Medical/Psychiatric HX Medical Problems Patient adopted, has not history that she is aware of. Psychiatric Disorders: No Addiction: No Suicide Attemps/Completions: No Social History Social History Childhood: Went into Foster Care at 3, Adopted at age 6 and then adopted again at 13 years old. 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 Missed taking Zoloft on time several days in a row. Social Support: Supportive Boyfriend and Friends Legal: None Marital: Single Mental Status Examination General Appearance: well groomed, appears stated age, hospital scubs/clothing Build: average Demeanor: average Eye Contact: average Activity: average Behavior: cooperative Speech: normal volume, reg/rate,rhythm,volume Mood: euthymic Affect: full, appropriate, congruent Thought Process: logical/linear Thought Content (Delusions): none reported, denies SI, HI, AVH Thought Content (Other): none reported Thought Content (Aggressive): none reported Perception (Hallucinations): none reported Perception (Other): none reported Cognition (Impairment of): none reported Cognition(Intelligence Est.): average Oriented: Awake, Alert, Oriented times three Insight: fair Judgment: Fair Psychosis: Denies Diagnoses unspecified depressive disorder unspecified anxiety disorder A-FIB/CHADSVASC A-FIB History Current/History of A-Fib/PAF?: No Current PO Anticoag Therapy: No Assessment 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 she is pleasant, calm, cooperative, easy to engage in the interview. Today, she reports that she had made an impulsive suicide attempt by taking 5, 600 mg tablets of ibuprofen after being stressed at work. She has one previous suicide attempt via overdose in April 2020, leading to an admission to this facility. Today, she denies si, reports that the last time she had suicidal t houghts before this admission was in April 2020 after she was under a lot of stress from work. She reports that her chain of command is trying to find her another job that is less stressful. She states that she doesn't want to kill herself because has a lot of family and friends that care about her and that she would, "never want to do that to them." She states she is remorseful about her overdose, "I m upset I didn't reach out before." She currently does not take any psychiatric medications an that she does not feel she needs them as she goes to [facility] for outpatient therapy weekly. She will likely discharge Tuesday. Initial Treatment Plan 1. Patient was admitted on a [9.39] status. 2. Complete history was obtained. 3. With patients permission, family will be contacted and database will be expanded. 4. Patients medication regimen will be reviewed and changed accordingly. 5. Patient will be provided with protected environment. 6. Patient will be treated with individual, group, and milieu therapies. 7. Patient will receive supportive psych-education. 8. Discharge planning will commence immediately. 9. Outpatient follow-up treatment will be strongly recommended. 10. The initial treatment plan will focus initially on: * Depression. * Risk for suicide. ESTIMATED LENGTH OF STAY: 1-3 DAYS. TIME SPENT COUNSELING AND COORDINATING INITIAL CARE: 60 minutes. Vital Signs Vital Signs Date Time Temp Pulse Resp B/P (MAP) Pulse Ox O2 Delivery O2 Flow Rate FiO2 09/12/20 06:17 99.2 81 20 141/82 (101) 98 Room Air Medications No Active Prescriptions or Reported Meds Allergies Coded Allergies: No Known Allergies (Unverified , 04/29/20) LANCE ESPINOZA NP Sep 12, 2020 12:35
--- NOTE | 2020-09-12 16:29 | HPEPDOC ---
[facility] Medical History & Physical Date of Admission Sep 11, 2020 Date of Service: Sep 12, 2020 History and Physical CHIEF COMPLAINT: Recent suicide attempt by overdose HISTORY OF PRESENT ILLNESS: Patient is a 20 year old female with anxiety who is in the inpatient mental health unit for attempted suicide. When I saw her this morning, she was very pleasant. She felt well without fever, chills, chest pain, dyspnea, abdominal pain, or dysuria. Denies any complaints or past medical history other than anxiety PAST MEDICAL HISTORY: 1. Anxiety PAST SURGICAL HISTORY: 1. Cholecystectomy SOCIAL HISTORY: Tobacco use: Denies ETOH: Denies Illicit drug use: Denies FAMILY HISTORY: Father: Unknown as she was adopted Mother: Unknown as she was adopted ALLERGIES: Please see below. REVIEW OF SYSTEMS: CONSTITUTIONAL: Denies any fever or chills. Denies lightheadedness or dizziness. ENT: Denies sore throat. RESPIRATORY: Denies shortness of breath. Denies cough. CARDIOVASCULAR: Denies chest pain. Denies palpitations. GASTROINTESTINAL: Denies abdominal pain. Denies diarrhea. Denies constipation GENITOURINARY: Denies dysuria. CUTANEOUS: Denies rashes. MUSCULOSKELETAL: Denies muscle weakness. NEUROLOGICAL: Denies neuropathy. Denies paresthesias. PSYCHOLOGICAL: Reports anxiety. HOME MEDICATIONS: Please see below. PHYSICAL EXAMINATION: VITAL SIGNS: Temperature 99.2, pulse 81, respiratory rate 20, blood pressure 141/82, pulse oximetry 98% on room air. GENERAL: Comfortable, in no apparent distress. HEENT: Head normocephalic/atraumatic, EOMI, sclera clear. NECK: Supple, no JVD. RESPIRATORY: Lungs clear to auscultation bilaterally, no rales, wheeze or rhonchi. CARDIOVASCULAR: Regular rate and rhythm. ABDOMEN: Soft, nontender, no guarding or rebound tenderness. Normal bowel sounds. MUSCLE SKELETAL: Muscle strength 5/5 in all extremities. NEUROLOGICAL: CN 312 grossly intact, no focal deficits noted. PSYCHOLOGICAL: Normal mood and affect ASSESSMENT and PLAN: 1. Suicide attempt by overdose Being managed in the inpatient mental health unit 2. General wellness -Patient should follow up with PCP for routine follow ups Thank you for consulting us. We'll sign off at this time. If there are any further questions or concerns, please do not hesitate to reconsult us. Vital Signs Vital Signs Date Time Temp Pulse Resp B/P (MAP) Pulse Ox O2 Delivery O2 Flow Rate FiO2 09/12/20 06:17 99.2 81 20 141/82 (101) 98 Room Air Home Medications No Active Prescriptions or Reported Meds Allergies Coded Allergies: No Known Allergies (Unverified , 04/29/20) A-FIB/CHADSVASC A-FIB History Current/History of A-Fib/PAF?: No IDALIA CHEUNG DO Sep 12, 2020 16:29
[2020-09-12 19:26] VITALS: BP 129/72
[2020-09-12] MEDS: traZODone 50 MG TAB PO PRN (21:12)
[2020-09-13 06:39] VITALS: BP 139/64
--- NOTE | 2020-09-13 16:24 | MHIPNPDOC ---
[facility] Progress Note Progress Note DATE OF SERVICE: 09/13/20-------PATIENT WAS EVALUATED USING ZOOM DUE TO CORONAVIRUS PANDEMIC HISTORY: Per ED reports: Pt is [employer] x 3 years, 1 deployment to [place] (n o combat), is currently in process of being med-boarded out of [employer]. PT admits to feeling "overwhelmed" at work recently, yesterday admits she took overdose with suicidal intent, admits it was "impulsive" though she adds she has been feeling increasingly depressed/hopeless for past week. Pt only reports occupational stressors, states "I feel like no matter what I do it will be wron g", pt states she has been working with her unit to change her duty, feels very intimidated by her "work environment". Pt reports she took the pills and then called her friend who brought her to [facility] ED. PT denies HI/AH/VH, denies any substance abuse, has been in tx at [facility] but has not been taking any meds for several months, states they were stopped when pt began c/o side effects "feeling out of it". Pt is pleasant/quiet, soft spoken, s/w guarded, admits to prior attempt(jumping in [facility]) and admission to [facility] 05/04. 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. She reports that she gets overwhelmed at work because people give her a lot of last minute paperwork that needs to be completed myrna. She states she is currently established at [facility] and attends weekly appointments, where she states she has 'learned a lot about myself - like when my emotions get out of control, I make impulsive decisions." she states that before she was admitted she was trying to handle her stress herself, "which isn't the best move because that's when I become impulsive." She states she took about 5, 600 mg tablets of ibuprofen, but that she doesn't like to take a lot of pills at once so was taking them once at a time, which gave her time to realize she shouldn't be doing that so she used her safety plan than that she had and called her friend who brought her to the Emergency room. She currently denies any suicidal thoughts. VITAL SIGNS: See below. NEW TEST RESULTS: See below CURRENT MEDICATIONS: See below. MENTAL STATUS EXAMINATION: General Appearance: well groomed, appears stated age, hospital scrubs/clothing Build: average Demeanor: average Eye Contact: avoidant Activity: average Behavior: cooperative Speech: normal volume, reg/rate,rhythm,volume Mood: euthymic Affect: full, appropriate, congruent, reactive. Thought Process: logical/linear Thought Content (Delusions): none reported, denies SI, HI, AVH Thought Content (Other): none reported Thought Content (Aggressive): none reported Perception (Hallucinations): none reported Perception (Other): none reported Cognition (Impairment of): none reported Cognition(Intelligence Est.): average Oriented: Awake, Alert, Oriented times three Insight: fair Judgment: Fair Psychosis: Denies Diagnoses unspecified depressive disorder unspecified anxiety disorder ASSESSMENT: The patient reports that she has been extremely overwhelmed at work, she says she was taking the Ibuprofen pills very slowly because she really do esn't like taking medications and then she called a friend who took her to [facility] ED. She denies feeling suicidal today, she feels safe at [facility], she is future orientated, she says she would like to remain in the area and buy a house in [place] after she gets the medical board from the [employer]. She is not psychotic, she seems to have a good response to medications, possibly ready for discharge on Tuesday. MANAGEMENT PLAN: Continue with current treatment plan TIME SPENT: 20 minutes. Vital Signs Vital Signs Date Time Temp Pulse Resp B/P (MAP) Pulse Ox O2 Delivery O2 Flow Rate FiO2 09/13/20 06:39 99.1 94 18 139/64 (89) 18 Room Air Current Medications Current Medications Medications (Trade) Dose Ordered Sig/Concepción Route PRN Reason Start Time Stop Time Status Last Admin Dose Admin Al Hydrox/Mg Hydrox/Simethicone (Mylanta) 30 ml Q4HP PRN PO HEARTBURN/INDIGESTION 09/11/20 13:30 Home Med (Med Rec Complete!) ASDIRECTED XX 09/11/20 04:30 Hydroxyzine HCl (Atarax) 25 mg QIDP PRN PO ANXIETY 09/11/20 13:30 Ibuprofen (Advil) 400 mg Q6HP PRN PO PAIN 09/11/20 13:30 Magnesium Hydroxide (Milk Of Magnesia) 30 ml DAILYPRN PRN PO CONSTIPATION 09/11/20 13:30 Olanzapine (ZyPREXA ZYDIS) 5 mg QIDP PRN PO AGITATION 09/11/20 13:30 Trazodone HCl (Desyrel) 50 mg QHSP PRN PO INSOMNIA 09/11/20 13:30 09/12/20 21:12 Allergies Coded Allergies: No Known Allergies (Unverified , 04/29/20) TALIB CERDA MD Sep 13, 2020 15:07
[2020-09-13 18:02] VITALS: BP 150/78
[2020-09-13] MEDS: traZODone 50 MG TAB PO PRN (22:40)
[2020-09-14 06:22] VITALS: BP 135/67
--- NOTE | 2020-09-14 12:45 | MHIPNPDOC ---
[facility] Progress Note Progress Note DATE OF SERVICE: 09/14/20 PATIENT WAS EVALUATED USING ZOOM DUE TO CORONAVIRUS PANDEMIC HISTORY: Per ED reports: Pt is [employer] x 3 years, 1 deployment to [place] (no combat), is currently in process of being med-boarded out of [employer]. PT admits to feeling "overwhelmed" at work recently, yesterday admits she took overdose with suicidal intent, admits it was "impulsive" though she adds she has been feeling increasingly depressed/hopeless for past week. Pt only reports occupational stressors, states "I feel like no matter what I do it will be wrong", pt states she has been working with her unit to change her duty, feels very intimidated by her "work environment". Pt reports she took the pills and then called her friend who brought her to [facility] ED. PT denies HI/AH/VH, denies any substance abuse, has been in tx at [facility] but has not been taking any meds for several months, states they were stopped when pt began c/o side effects "feeling out of it". Pt is pleasant/quiet, soft spoken, s/w guarded, admits to prior attempt(jumping in [facility]) and admission to [facility] 05/04. 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 She reports that she gets overwhelmed at work because people give her a lot of last minute paperwork that needs to be completed myrna. She states she is currently established at [facility] and attends weekly appointments, where she states she has 'learned a lot about myself - like when my emotions get out of control, I make impulsive decisions." she states that before she was admitted she was trying to handle her stress herself, "which isn't the best move because that's when I become impulsive." She states she took about 5, 600 mg tablets of ibuprofen, but that she doesn't like to take a lot of pills at once so was taking them once at a time, which gave her time to realize she shouldn't be doing that so she used her safety plan than that she had and called her friend who brought her to the Emergency room. She currently denies any suicidal thoughts. VITAL SIGNS: See below. NEW TEST RESULTS: See below CURRENT MEDICATIONS: See below. MENTAL STATUS EXAMINATION: General Appearance: well groomed, appears stated age, wearing personal clothes Build: average Demeanor: average Eye Contact: average Activity: average Behavior: cooperative Speech: normal volume, reg/rate,rhythm,volume Mood: euthymic Affect: full, appropriate, congruent, reactive. Thought Process: logical/linear Thought Content (Delusions): none reported, denies SI, HI, AVH Thought Content (Other): none reported Thought Content (Aggressive): none reported Perception (Hallucinations): none reported Perception (Other): none reported Cognition (Impairment of): none reported Cognition(Intelligence Est.): average Oriented: Awake, Alert, Oriented times three Insight: fair Judgment: Fair Psychosis: Denies Diagnoses unspecified depressive disorder unspecified anxiety disorder ASSESSMENT: She says she talked to her friends and sister this morning. She felt better doing this. She reports having a good sleep and appetite, she denies feeling depressed, feels a little bit anxious "because is Tuesday and I wonder if I'm going to be discharged tomorrow". She is still planning on staying in the area, buying a home, going to school, working at [employer] until she receives disability and retire. She is not in danger to self or others at this time. MANAGEMENT PLAN: Continue with current treatment plan TIME SPENT: 20 minutes. Vital Signs Vital Signs Date Time Temp Pulse Resp B/P (MAP) Pulse Ox O2 Delivery O2 Flow Rate FiO2 09/14/20 06:22 97.5 83 18 135/67 (89) 99 Room Air Current Medications Current Medications Medications (Trade) Dose Ordered Sig/Concepción Route PRN Reason Start Time Stop Time Status Last Admin Dose Admin Al Hydrox/Mg Hydrox/Simethicone (Mylanta) 30 ml Q4HP PRN PO HEARTBURN/INDIGESTION 09/11/20 13:30 Home Med (Med Rec Complete!) ASDIRECTED XX 09/11/20 04:30 Hydroxyzine HCl (Atarax) 25 mg QIDP PRN PO ANXIETY 09/11/20 13:30 Ibuprofen (Advil) 400 mg Q6HP PRN PO PAIN 09/11/20 13:30 Magnesium Hydroxide (Milk Of Magnesia) 30 ml DAILYPRN PRN PO CONSTIPATION 09/11/20 13:30 Olanzapine (ZyPREXA ZYDIS) 5 mg QIDP PRN PO AGITATION 09/11/20 13:30 Trazodone HCl (Desyrel) 50 mg QHSP PRN PO INSOMNIA 09/11/20 13:30 09/13/20 22:40 Allergies Coded Allergies: No Known Allergies (Unverified , 04/29/20) TALIB CERDA MD Sep 14, 2020 12:45
[2020-09-14] MEDS: traZODone 50 MG TAB PO PRN (22:48)
[2020-09-15 07:03] VITALS: BP 138/74
--- NOTE | 2020-09-15 11:34 | MHDSPDOC ---
[facility] Discharge Summary Discharge Summary DATE OF ADMISSION: Sep 11, 2020 at 14:20 DATE OF DISCHARGE: September 15, 2020 at 1111 DISCHARGE DIAGNOSES: 1. Unspecified Depressive Disorder 2. Unspecified Anxiety Disorder 3. Bulimia per [facility] REASON FOR ADMISSION: Per ED reports: Pt is [employer] x 3 years, 1 deployment to [place] (no combat), is currently in process of being med-boarded out of [employer]. PT admits to feeling "overwhelmed" at work recently, yesterday admits she took overdose with suicidal intent, admits it was "impulsive" though she adds she has been feeling increasingly depressed/hopeless for past week. Pt only reports occupational stressors, states "I feel like no matter what I do it will be wrong", pt states she has been working with her unit to change her duty, feels very intimidated by her "work environment". Pt reports she took the pills and then called her friend who brought her to [facility] ED. PT denies HI/AH/VH, denies any substance abuse, has been in tx at [facility] but has not been taking any meds for several months, states they were stopped when pt began c/o side effects "feeling out of it". Pt is pleasant/quiet, soft spoken, s/w guarded, admits to prior attempt(jumping in the [place]) and admission to [facility] 05/04. 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 She reports that she gets overwhelmed at work because people give her a lot of last minute paperwork that needs to be completed myrna. She states she is currently established at [facility] and attends weekly appointments, where she states she has 'learned a lot about myself - like when my emotions get out of control, I make impulsive decisions." she states that before she was admitted she was trying to handle her stress herself, "which isn't the best move because that's when I become impulsive." She states she took about 5, 600 mg tablets of ibuprofen, but that she doesn't like to take a lot of pills at once so was ta jody them once at a time, which gave her time to realize she shouldn't be doing that so she used her safety plan than that she had and called her friend who brought her to the Emergency room. She currently denies any suicidal thoughts. CONSULTANTS INVOLVED: See Medical H + P by Hospitalist TREATMENT AND PROGRESS ON THE UNIT: Patient was admitted to the [facility] on a 9.39 legal status he was afforded the following treatment modalities: 1) Individual Therapy 2) Group Therapy 3) Medication Management 4) Milieu Therapy 5) Safe Environment HOSPITAL COURSE: Patient was admitted to [facility] on a 9.39 legal status. She was encouraged to 1) participate in individual sessions with provider, 2) attend groups, 3) stay compliant with medications. She declined any medications on this admission. She was social with peers and attended groups. She was cooperative with interview with inpatient providers. The pharmacological education was given and reinforced, patient reports that she does not want medications at this time. DISCHARGE ASSESSMENT: In today's interview, patient is alert and oriented, pts dress is appropriate. Hygiene and grooming is well-kempt. Smiles on approach and is pleasant and engaged in the interview. At time of interview, patient had reported that she felt that she needed to be admitted to have a "reset" Jade didnt want medications, states, "I am not pro or against it. I just don't think I need it now. When asked about her recent stressors. She reports that she returned because "I didnt use the safety plan" which was to call someone, her best friend Albin before she did anything. "Was pretty good about calling her before I need her, I felt she was doing better and didn't liz but did need her. " States that she was trying to get out of bad work environment. [place] it wasnt going well even if it was the right thing, multiple things were happening. Took 4-5 Ibuprofen, she states that she knew if she called someone, she would need to return to the hospital - fearful that she could get pretty low if she didn't get help. Wants to be med-boarded. Wants to do well, missed multiple appointments and that overwhelmed her, including work stress and trying to move. Denies depression and anxiety. Denies suicidal and homicidal ideation, planning or intent. He denies and is not observed with shad, psychotic symptoms of delusions, bizarre thinking, obsessions, paranoia, ruminations illogical thoughts, flight of ideas or having poor insight and judgement. Patient has normal mentation, declines further hospitalization on a voluntary status and meets criteria for discharge today. Denies depression, anxiety, and suicidal ideation. Does not want to , states she has animals, has friends and family that she cares for deeply. Reported that she is a bit fearful of other peers due to their behaviors and at this time requesting discharge. Spa Supervisor called [employer], and they were requesting patient stay and be transferred to intensive rehab for Bulimia, which patient had not divulged or complained about while she had been hospitalized. The discharge was Patient declined the offer of transfer to inpatient. 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 she had reported taken 4-5 Ibuprofen tablets. She is dressed appropriate, her hygiene and grooming is well-kempt, she is calm and cooperative in the milieu and conversant with peers. Eye contact is good and she is not observed with any psychomotor agitation or retardation. Speech: Is fluid, conversant, normal rate, tone and volume Language skills are intact Thought processes including: linear and goal oriented Thought content: denies depression and anxiety. Denies suicidal/homicidal ideation, planning or intent. Abstract reasoning, and computation: fair Description of associations: denies, none observed Description of abnormal or psychotic thoughts: denies, none observed. Judgment: fair Insight: fair Orientation: alert and oriented to person, place, time and situation Recent and remote memory: intact Attention span and concentration: good Language: expansive Fund of knowledge: average Mood: Euthymic Mood Affect: reactive MEDICATIONS ON DISCHARGE: None. Patient declined medications. PLAN/FOLLOWUP ARRANGEMENTS: [facility] The amount of time spent in the coordination of care for this patient was approximately 40 minutes. Vital Signs/I&Os Vital Signs Date Time Temp Pulse Resp B/P (MAP) Pulse Ox O2 Delivery O2 Flow Rate FiO2 09/15/20 07:03 96.7 75 20 138/74 (95) 98 Room Air Medications No Active Prescriptions or Reported Meds Allergies Coded Allergies: No Known Allergies (Unverified , 04/29/20) LANCE ESPINOZA NP Sep 15, 2020 11:24
== END 2020-09-15 13:15 | disposition home or self-care (01) | DRG 881 ==
LOC: M ED 02:21 → M PSY 14:20
PROVIDERS: ADMIT Psychiatry & Neurology Geriatric Psychiatry; ATTEND Psychiatry & Neurology Psychiatry
DX: F32.9 Major depressive disorder, single episode, unspecified (principal); F50.2 Bulimia nervosa; F41.9 Anxiety disorder, unspecified; Z91.5 Personal history of self-harm; Z90.49 Acquired absence of other specified parts of digestive tract

== ENCOUNTER → 2021-01-20 | Outpatient (REF) ==
--- NOTE | 2021-01-20 13:57 | REPPI ---
INDICATION: DISABILITY DIAGNOSIS DETERMINATION COMPARISON: None. TECHNIQUE: PA and lateral. FINDINGS: The mediastinum and cardiac silhouette are normal. The lung vale are clear and without acute consolidation, effusion, or pneumothorax. The skeletal structures are intact and normal. IMPRESSION: No acute cardiopulmonary process. <Electronically signed by Marquis Winn > 01/20/21 [id number]
== END ==
LOC: M PLAIMG 08:48
PROVIDERS: ATTEND Internal Medicine
DX: Z02.9 Encounter for administrative examinations, unspecified (principal)